=== PATIENT | male | born 1950 | race Caucasian/White ===

== ENCOUNTER → 2017-02-25 | Outpatient (CLI) | payer MEDICARE, MEDICAID ==
[~2017-02-25] MED LIST: /ASCO250TA PO; /FAMO2TA PO; /TAMS4CA PO; /WARF4TA PO; ALDA25TA2 PO; AMOXICILLIN PO; ASPI81TA85 PO; AUGM875T28 PO; BICA50TA2 PO; CIPR-249 PO; CIPR500T89 PO; COUM1TAB17 PO; COUM1TAB19 PO; COUM6TAB PO; COUM7.5T PO; DAILTAB51 PO; DIGO0.126 OR; DIGO0.25 PO; DIGO25TA PO; DILA100C PO; DOCQ100C PO; DOCU10CA PO; FAMO20TA PO; FLAG500T PO; FLON1SPR; FURO20TA2 PO; FURO40TA2 PO; K-TA10TA2 PO; LASI40TA PO; LUPR45IN IM; METO50TA2 PO; METO50TA7 PO; MULTCAP PO; MULTTAB4 PO; OXYB5TAB10 PO; PHEN100C PO; PHEN32.4 PO; PHEN32.44 PO; PHEN60TA9 PO; PHEN64.8 PO; POTA-77 PO; POTA20TA PO; TYLE325T5 PO; TYLE650T30 PD; VERA120T2 PO; VITA500T PO; VITMTA PO; WARF-23 PO; WARF-58 PO; WARF4TAB51 PO; [UNRECOGNIZED DRUG - OTHER] PO; clonidine OR; coumadin OR
--- NOTE | 2017-02-26 07:16 | RADONC ---
RADIATION ONCOLOGY FOLLOWUP NOTE: DATE: 02/25/2017 CHART NUMBER: [id number]. DIAGNOSIS: Prostate cancer. STAGE: IIB, L1CP0U5 ECOG PERFORMANCE STATUS: Zero. FOLLOWUP NOTE: Mr. Gonzalez is a very pleasant, 65-year-old white male with the diagnosis of a moderate to poorly differentiated [place] score 7 (3-4) adenocarcinoma of the prostate who is presenting to us today for routine followup visit 3 years post completion of external beam radiation therapy. The patient presents today reporting that he is doing quite well with no complaints at this time related to his radiation therapy or disease. He has no urinary or bowel difficulties and no bone pain. REVIEW OF SYSTEMS: The patient's review of systems is noncontributory. Denies nausea, vomiting, fevers, chills, night sweats, diplopia, headaches, anxiety or depression, anorexia, weight loss, visual disturbances, chest pain, urinary or bowel difficulties, bone pain, or neurological problems. PHYSICAL EXAMINATION: The patient is a well-developed, well-nourished male in no acute distress. HEENT exam is normocephalic, atraumatic. Extraocular movements are intact. There is no palpable cervical, supraclavicular, infraclavicular, axillary, or inguinal lymphadenopathy present. Lungs are clear to auscultation and percussion. Heart has a regular rate and rhythm. Abdomen is benign with no hepatosplenomegaly, masses, or tenderness. Rectal examination reveals a normal anal sphincter tone. His prostate is smooth with no evidence of nodularity. Skeletal examination reveals no tenderness to pressure or percussion of the bony skeleton. Extremities reveal no clubbing, cyanosis, or edema. Neurologic exam is grossly intact, as is the remainder of the physical examination. ASSESSMENT: The patient is clinically KIT at this time and will be seen by us again in 1 year for further followup. He will also continue to be followed by his other physicians as well. cc: MD Mario De León MD
== END ==
LOC: M ONCR 09:11
PROVIDERS: ATTEND Radiology Radiation Oncology
DX: C61 Malignant neoplasm of prostate (principal)

== ENCOUNTER 2017-04-16 15:01 | Inpatient (IN) | payer MEDICARE, MEDICAID ==
[~2017-04-16] VITALS: Ht 160 cm; Wt 90.5 kg
[~2017-04-16 15:01] MED LIST changes: -FLON1SPR; -K-TA10TA2 PO; -PHEN32.44 PO; -POTA20TA PO; -WARF-23 PO; -WARF-58 PO
[2017-04-16] MEDS ORDERED: K-TA10TA2 PO (15:11)
[2017-04-16] MEDS ORDERED: POTA20TA PO (15:11)
[2017-04-16] MEDS ORDERED: NS 500 ML IV ONE (15:15)
[2017-04-16 15:59] LABS: MEAN CORPUSCULAR HEMOGLOBIN 32.5 pg (27.0-33.0); MEAN CORPUSCULAR HGB CONC 34.5 g/dl (32.0-36.5); MEAN CORPUSCULAR VOLUME 94.1 fl (80.0-96.0); PLATELET COUNT, AUTOMATED 196 10^3/uL (150-450); RED CELL DISTRIBUTION WIDTH 13.3 % (11.5-14.5)
[2017-04-16 16:01] LABS: ADD MANUAL DIFFER YES; DIFF SLIDE NUMBER 260; POSITIVE DIFF POS FLAG; WHITE BLOOD COUNT 15.6 10^3/uL (4.0-10.0)
[2017-04-16 16:13] LABS: INR 2.64
[2017-04-16 17:02] LABS: ALBUMIN 3.5 GM/DL (3.2-5.2); ALBUMIN/GLOBULIN RATIO 1.03 (1.00-1.93); ALKALINE PHOSPHATASE 141 U/L (45-117); ALT/SGPT 34 U/L (12-78); ANION GAP 4 MEQ/L (8-16); AST/SGOT 30 U/L (15-37); BILIRUBIN,DIRECT < 0.1 MG/DL (0.0-0.2); BILIRUBIN,TOTAL 0.3 MG/DL (0.2-1.0); BLOOD UREA NITROGEN 12 MG/DL (7-18); CALCIUM LEVEL 8.3 MG/DL (8.8-10.2); CARBON DIOXIDE LEVEL 30 MEQ/L (21-32); CHLORIDE LEVEL 105 MEQ/L (98-107); CREATININE FOR GFR 0.84 MG/DL (0.70-1.30); GLOMERULAR FILTRATION RATE > 60.0 (>49); GLUCOSE, FASTING 97 MG/DL (80-110); POTASSIUM SERUM 4.4 MEQ/L (3.5-5.1); SODIUM LEVEL 139 MEQ/L (136-145); TOTAL PROTEIN 6.9 GM/DL (6.4-8.2)
[2017-04-16] MEDS: NS 1,000 ML IV SCH (17:48)
[2017-04-16] MEDS ORDERED: PERCOCET 5MG/325MG TAB PO PRN (18:00)
[2017-04-16] MEDS ORDERED: ACETAMINOPHEN TAB 650MG DOSE (2X325MG) PO PRN (18:00)
[2017-04-16] MEDS ORDERED: METOPROLOL TART 50 MG TAB PO ONE (18:00)
[2017-04-16] MEDS ORDERED: WARF-58 PO (18:14)
[2017-04-16] MEDS ORDERED: PHEN32.44 PO (18:14)
[2017-04-16] MEDS ORDERED: WARF-23 PO (18:14)
[2017-04-16] MEDS ORDERED: AUGM875T28 PO (18:16)
[2017-04-16] MEDS ORDERED: FLON1SPR (18:16)
[2017-04-16] MEDS: PANTOPRAZOLE SODIUM 40 MG in D5W 50 ML IV SCH ×3 (18:28→23:32)
--- NOTE | 2017-04-16 19:20 | HPE ---
DATE OF ADMISSION: 04/16/2017 ACCIDENT REPORT CLERK: Dr. 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 Patient stated this morning he went to the restroom and bright red blood just came out of his rectum and the whole toilet was bloody and he found a few blood clots without any stools. This morning had a total of 3-4 blood per rectum. This never happened before. Patient had colonoscopy. Patient did complain of shivering and chills approximately three days ago, but no fevers, no recurrence in the last few days. Denied any abdominal pain. Denied any chest pain or shortness of breath. Denied any dizziness. PAST MEDICAL HISTORY: Atrial fibrillation on Coumadin. Rheumatoid heart disease status post mitral valve replacement. Hypertension. Congestive heart failure. Seizure disorder. Elevated PSA and questionable history of prostate cancer. PAST SURGICAL HISTORY: Open heart surgery 1996. Cholecystectomy. Atrial thrombectomy. Porcine mitral valve replacement in 2016. SOCIAL HISTORY: Denied smoking. Denied alcohol use and recreational drug use. REVIEW OF SYSTEMS: GENERAL: Currently does not have any fever or chills. HEENT: No vision changes nor auditory changes. CARDIOVASCULAR: No chest pain. No palpitations. Patient does have a history of atrial fibrillation on Coumadin. Patient has rheumatoid heart disease status post mitral valve replacement. GI: Blood per rectum at 3-4 times in the morning, last episode 11 A.M. It never happened before. Denies any abdominal pain. No nausea. No vomiting. MUSCULOSKELETAL: Denies muscle pain or joint pain. NEURO: Denied any numbness or tingling. OBJECTIVE: Vital signs: Temperature 97.3, pulse 104, respiration1 6, Blood pressure is 158/93, pulse ox 96% on room air. GENERAL: No sign of acute distress. Awake, alert, and oriented times three. HEENT: Normocephalic, atraumatic. Extraocular motor grossly intact. CARDIOVASCULAR: Positive S1, S2, irregularly irregular. Heart range in satisfactory range. LUNGS: Decreased breath sounds no wheezes or rhonchi. ABDOMEN: Morbidly obese, soft, non-tender, non-distended. Bowel sounds present. EXTREMITIES: No edema, no cyanosis. NEURO: Sensation to fine tough grossly intact. Muscle strength 5/5. LABORATORY DATA: WBC 15.6, hemoglobin 14.4, hematocrit 41.7, platelet count 196. Sodium 139, potassium 4.4, chloride 105, carbon dioxide 30, BUN 12, creatinine 0.84, glomerular filtration rate (GFR) greater than 60, fasting glucose 97, calcium 8.3. Total bilirubin is 0.3, direct bilirubin less than 0.1. AST 30, ALT 34, alkaline phosphatase 141, total protein 6.9, albumin 3.5, lipase 165. PT 29.2, INR is 2.64. ASSESSMENT AND PLAN: 1. Acute GI bleed. Patient admitted to progressive care unit (PCU) under inpatient status. Patient will be placed on nothing by mouth. Supplement with gentle fluid hydration followed by hemoglobin and hematocrit. Patient never had colonoscopy in the patient and will try to stabilize patient. Patient may benefit from colonoscopy. Consider consult gastroenterology. 2. Atrial fibrillation on Coumadin. Continue with Digoxin for rate control. Also continue with metoprolol. Due to GI bleed patient's warfarin will be on hold at this moment. 3. Congestive heart failure. Patient has been taking Lasix at home. Due to GI bleed and patient on nothing by mouth, will hold Lasix and spironolactone. 4. Hypertension. Continue metoprolol. 5. 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 6. History of seizure disorders. Continue Dilantin and also phenobarbital, which are patients home medications. 7. Deep vein thrombosis prophylaxis. On thromboembolic deterrent stockings (TEDS), sequentials and compression devices. Patient has acute GI bleed. [facility]
[2017-04-16] MEDS ORDERED: FLUTICASONE PROP 0.05% NASAL SPRAY 16 GM (FLONASE) PRN (20:45)
[2017-04-16] MEDS ORDERED: PHENobarbital 30 MG TAB PO SCH (21:00)
[2017-04-16] MEDS ORDERED: PHYTONADIONE 2.5 MG **1/2 TAB PO ONE (21:15)
[2017-04-16] MEDS: PHENYTOIN ER 100 MG CAP PO SCH (21:22)
[2017-04-16] MEDS: METOPROLOL TART 50 MG TAB PO SCH (21:23)
[2017-04-16 21:39] LABS: MEAN CORPUSCULAR HGB CONC 34.7 g/dl (32.0-36.5); MEAN CORPUSCULAR VOLUME 95.2 fl (80.0-96.0); PLATELET COUNT, AUTOMATED 179 10^3/uL (150-450); RED CELL DISTRIBUTION WIDTH 13.5 % (11.5-14.5); WHITE BLOOD COUNT 17.3 10^3/uL (4.0-10.0)
--- NOTE | 2017-04-16 22:25 | CR ---
DATE OF CONSULTATION: 04/16/2017 I saw this inpatient. REQUESTING PHYSICIAN: Hospitalist service REASON FOR CONSULTATION: Rectal bleeding. HISTORY OF PRESENT ILLNESS: Mr. Gonzalez is a 66-year-old gentleman with a past medical history significant for prostate cancer, status post radiation therapy approximately 4 years ago, which was quite uneventful. He has rheumatic heart disease with a mitral valve replacement (bioprosthetic). He is on anticoagulation therapy for atrial fibrillation. The patient was in his usual state of health until yesterday when he had a total of four bright red bloody bowel movements. He denies any diarrhea, abdominal pain, constipation, or previous episodes of rectal bleeding. He was admitted for further evaluation. PAST MEDICAL HISTORY: Positive for: 1. Prostate cancer status post radiation therapy 4 years ago. 2. Rheumatic heart disease, status post mitral valve replacement, bioprosthetic. 3. Seizure disorder. 4. Indigestion. 5. Deep vein thrombosis (DVT). 6. Congestive heart failure (CHF). FAMILY HISTORY: Negative for colorectal carcinoma, inflammatory bowel disease. SOCIAL HISTORY: Negative for tobacco. Negative for alcohol. PAST SURGICAL HISTORY: 1. Cholecystectomy in 2005. 2. Appendectomy in 2014. 3. A bioprosthetic mitral valve replacement in 2012. ALLERGIES TO MEDICATIONS: No known drug allergies. REVIEW OF SYSTEMS: GENERAL: Negative for weight loss, night sweats, fevers, or chills. PULMONARY: Negative for pleuritic-type chest pain, hemoptysis. CARDIAC: Negative for orthopnea, paroxysmal nocturnal dyspnea (PND). GASTROINTESTINAL: As per history of present illness (HPI). GENITOURINARY: Negative for hematuria, dysuria. MUSCULOSKELETAL: Negative for myalgias, arthralgias. PHYSICAL EXAMINATION: Heart rate is 104, blood pressure 200/98, respirations 18, pulse oximetry 93% on room air. GENERAL: He is awake, alert and oriented times three in no acute distress. Nontoxic in appearance. He is quite comfortably in bed. HEAD, EYES, EARS, NOSE AND THROAT: Without abnormality. There is no mucosal pallor. No oral thrush. NECK: Supple. No lymphadenopathy or thyromegaly. CHEST: Clear bilaterally. HEART: Regular rate and rhythm, S1, S2. No gallops. ABDOMEN: Soft, nontender. Good bowel sounds. No masses felt. EXTREMITIES: Negative for edema. LABORATORY FINDINGS: Hemoglobin is 14.4, WBC 15.6, platelet count is 196. PT/INR is 2.64. BUN is 12, creatinine is 0.84. IMPRESSION: Rectal bleeding. RECOMMENDATIONS: 1. Colonoscopy is recommended, and we will tentatively plan on proceeding with this on ThursdayApril 18. In the meantime we will proceed with a colon prep, which will happen tomorrow. 2. Correct INR either by simply waiting waiting or add vitamin K if necessary before procedure. He has a bioprosthetic valve in place. Has had previous manipulation and a history of rheumatic heart disease. I will go ahead and prophylax him with ampicillin and gentamicin before procedures.
[2017-04-17] VITALS (8 sets, daily range): BP systolic 118–180; BP diastolic 67–91
[2017-04-17] MEDS: PANTOPRAZOLE SODIUM 40 MG in D5W 50 ML IV SCH ×3 (04:53→15:53)
[2017-04-17 05:33] LABS: MEAN CORPUSCULAR HEMOGLOBIN 32.8 pg (27.0-33.0); MEAN CORPUSCULAR HGB CONC 34.1 g/dl (32.0-36.5); MEAN CORPUSCULAR VOLUME 96.3 fl (80.0-96.0); PLATELET COUNT, AUTOMATED 172 10^3/uL (150-450); RED CELL DISTRIBUTION WIDTH 13.4 % (11.5-14.5); WHITE BLOOD COUNT 14.2 10^3/uL (4.0-10.0)
[2017-04-17 05:57] LABS: ANION GAP 7 MEQ/L (8-16); BLOOD UREA NITROGEN 11 MG/DL (7-18); CARBON DIOXIDE LEVEL 27 MEQ/L (21-32); CHLORIDE LEVEL 108 MEQ/L (98-107); CREATININE FOR GFR 0.78 MG/DL (0.70-1.30); GLOMERULAR FILTRATION RATE > 60.0 (>49); GLUCOSE, FASTING 81 MG/DL (80-110); MAGNESIUM LEVEL 2.1 MG/DL (1.8-2.4); POTASSIUM SERUM 3.8 MEQ/L (3.5-5.1); SODIUM LEVEL 142 MEQ/L (136-145)
[2017-04-17] MEDS ORDERED: MAGNESIUM CITRATE 300 ML BTL PO ONE (07:00)
[2017-04-17] MEDS: PHENobarbital 30 MG TAB PO SCH ×2 (09:30→20:41)
[2017-04-17] MEDS: PHENYTOIN ER 100 MG CAP PO SCH ×3 (10:30→20:40)
[2017-04-17] MEDS: DIGOXIN 0.25 MG TAB PO SCH (10:31)
[2017-04-17] MEDS: MULTIVITAMINS/MINERALS THERAP 1 TAB PO SCH (10:31)
[2017-04-17] MEDS: ASCORBIC ACID 500 MG TAB PO SCH (10:31)
[2017-04-17] MEDS: METOPROLOL TART 50 MG TAB PO SCH ×2 (10:31→20:40)
[2017-04-17] MEDS: NS 1,000 ML IV SCH ×2 (10:32→19:35)
[2017-04-17 13:47] LABS: INR 1.7
[2017-04-17 15:43] LABS: MEAN CORPUSCULAR HEMOGLOBIN 32.6 pg (27.0-33.0); MEAN CORPUSCULAR HGB CONC 34.1 g/dl (32.0-36.5); MEAN CORPUSCULAR VOLUME 95.4 fl (80.0-96.0); PLATELET COUNT, AUTOMATED 178 10^3/uL (150-450); RED CELL DISTRIBUTION WIDTH 13.5 % (11.5-14.5); WHITE BLOOD COUNT 14.7 10^3/uL (4.0-10.0)
[2017-04-17] MEDS ORDERED: GOLYTELY SOLN 4000 ML BTL PO ONE ×2 (17:00→22:45)
[2017-04-17 23:13] LABS: MEAN CORPUSCULAR HEMOGLOBIN 32.4 pg (27.0-33.0); MEAN CORPUSCULAR HGB CONC 33.8 g/dl (32.0-36.5); PLATELET COUNT, AUTOMATED 158 10^3/uL (150-450); RED CELL DISTRIBUTION WIDTH 13.4 % (11.5-14.5)
[2017-04-17 23:18] LABS: ADD MANUAL DIFFER YES; DIFF SLIDE NUMBER 242; POSITIVE DIFF POS FLAG; POSITIVE MORPH POS FLAG; WHITE BLOOD COUNT 15.6 10^3/uL (4.0-10.0)
[2017-04-18] MEDS: PANTOPRAZOLE SODIUM 40 MG in D5W 50 ML IV SCH ×3 (00:08→11:47)
[2017-04-18 00:28] LABS: ANISOCYTOSIS 1+; BASOPHILS 1 % (0-4); EOSINOPHILS 2 % (0-5)
[2017-04-18 05:43] LABS: MEAN CORPUSCULAR HEMOGLOBIN 32.3 pg (27.0-33.0); MEAN CORPUSCULAR HGB CONC 33.5 g/dl (32.0-36.5); MEAN CORPUSCULAR VOLUME 96.5 fl (80.0-96.0); PLATELET COUNT, AUTOMATED 172 10^3/uL (150-450); RED CELL DISTRIBUTION WIDTH 13.5 % (11.5-14.5); WHITE BLOOD COUNT 15.4 10^3/uL (4.0-10.0)
[2017-04-18 05:57] LABS: ANION GAP 5 MEQ/L (8-16); BLOOD UREA NITROGEN 7 MG/DL (7-18); CALCIUM LEVEL 8.5 MG/DL (8.8-10.2); CARBON DIOXIDE LEVEL 30 MEQ/L (21-32); CHLORIDE LEVEL 108 MEQ/L (98-107); CREATININE FOR GFR 0.87 MG/DL (0.70-1.30); GLOMERULAR FILTRATION RATE > 60.0 (>49); GLUCOSE, FASTING 89 MG/DL (80-110); MAGNESIUM LEVEL 2.3 MG/DL (1.8-2.4); POTASSIUM SERUM 3.9 MEQ/L (3.5-5.1); SODIUM LEVEL 143 MEQ/L (136-145)
[2017-04-18 06:00] VITALS: BP 150/78
[2017-04-18] MEDS ORDERED: GENTAMICIN 100 MG in APPROPRIATE DILUENT 1 EA IV SCH (06:00)
[2017-04-18] MEDS ORDERED: AMPICILLIN SOD/SULBACTAM SOD 3 GM in D5W MINI-BAG PLUS 100 ML IV SCH (06:00)
[2017-04-18] MEDS: NS 1,000 ML IV SCH (08:24)
[2017-04-18 09:00] VITALS: BP 150/78
[2017-04-18] MEDS ORDERED: PREVNAR 13 VACCINE SYRINGE (CPT CODE:90670) IM ONE (09:00)
[2017-04-18] MEDS: METOPROLOL TART 50 MG TAB PO SCH (09:00)
[2017-04-18] MEDS ORDERED: INFLUENZA VIRUS VACCINE HIGH DOSE 0.5 ML SYRINGE (90662) IM ONE (09:00)
[2017-04-18] MEDS ORDERED: PROPOFOL 200 MG/20 ML VIAL As Ordered ONE (09:52)
--- NOTE | 2017-04-18 10:31 | ROOR ---
Patient Name: Edson Gonzalez Procedure Date: 04/18/2017 9:37 AM Date of : 1950 Age: 66 Gender: Male Note Status: Finalized Procedure: Colonoscopy Indications: Hematochezia Providers: Marcus FLOREZ MD Referring MD: 2. Inpatient 2. Inpatient Requesting Provider: Medicines: Monitored Anesthesia Care Complications: No immediate complications. Procedure: Pre-Anesthesia Assessment: - The heart rate, respiratory rate, oxygen saturations, blood pressure, adequacy of pulmonary ventilation, and response to care were monitored throughout the procedure. The Colonoscope was introduced through the anus and advanced to the cecum, identified by appendiceal orifice and ileocecal valve. The colonoscopy was performed without difficulty. The patient tolerated the procedure well. The quality of the bowel preparation was fair. Findings: The perianal and digital rectal examinations were normal. (EXAM: Complete, PREP: Fair/Adequate) A 18 mm hemorrhagic polyp was found in the recto-sigmoid colon. The polyp was pedunculated. An endoloop was maneuvered over the polyp stalk and closed at the mucosal attachment prior to removal in order to prevent bleeding. The polyp was removed with a hot snare. Resection and retrieval were complete. Multiple medium-mouthed diverticula were found in the sigmoid colon. The exam was otherwise without abnormality on direct and retroflexion views. Impression: - (EXAM: Complete, PREP: Fair/Adequate) - One 18 mm hemorrhagic appearing polyp at the recto-sigmoid colon, removed with a hot snare. Resected and retrieved. - Mild diverticulosis in the sigmoid colon. - The examination was otherwise normal on direct and retroflexion views. Recommendation: - Continue present medications. - Resume anticoagulant medication at prior dose today. Refer to managing physician for further adjustment of therapy. - Await pathology results. - Telephone endoscopist for pathology results in 2 weeks. - The patient will be observed post-procedure, until all discharge criteria are met. - Repeat colonoscopy in 1 year because the bowel preparation was suboptimal. Marcus Florez MD Marcus FLOREZ MD 04/18/2017 10:31:03 AM This report has been signed electronically. Number of Addenda: 0 Note Initiated On: 04/18/2017 9:37 AM Estimated Blood Loss: Estimated blood loss: none.
[2017-04-18 10:35] VITALS: BP 157/86
[2017-04-18 11:00] VITALS: BP 164/86
[2017-04-18] MEDS: PHENYTOIN ER 100 MG CAP PO SCH (11:46)
[2017-04-18] MEDS: DIGOXIN 0.25 MG TAB PO SCH (11:47)
[2017-04-18] MEDS: MULTIVITAMINS/MINERALS THERAP 1 TAB PO SCH (11:47)
[2017-04-18] MEDS: PHENobarbital 30 MG TAB PO SCH (11:47)
[2017-04-18] MEDS: ASCORBIC ACID 500 MG TAB PO SCH (11:47)
[2017-04-18 12:00] VITALS: BP 163/84
--- NOTE | 2017-04-18 13:07 | IPN ---
DATE OF SERVICE: 04/17/2017 Mr. Gonzalez is feeling okay this morning. He has no complaints of abdominal pain. He has passed some more bloody stools. No chest pain. Not short of breath. Temperature is 98.2, pulse 81, respiratory rate 18, blood pressure 118/69, 92% on room air. Intake and output (I and O) notable for a positive fluid balance of 1000 at this point. He is awake, appropriately interactive, pleasantly conversant. Mucous membranes moist. Neck is supple. Heart is distant sounding. Regular rate and rhythm. Abdomen soft, doughy, nontender. No significant lower extremity edema. White cell count 14.2, hemoglobin 12.3, and platelets of 172. BUN 11, creatinine 0.7. INR is 1.7 today. My assessment is as follows: This is a 66-year-old with lower gastrointestinal (GI) bleed. The plan is as follows: 1. Gastrointestinal. The patient appears to have a lower GI bleed. Hemoglobin and hematocrit is trending downward slowly. He is not hypotensive. No significant arrhythmia on monitor. GI has been consulted and plans for colonoscopy likely over the weekend. 2. The patient has atrial fibrillation. On Coumadin. Coumadin is held. Rate is currently controlled. Will continue on telemetry but may switch to the medical floor. 3. The patient has a history of congestive heart failure. He is usually on a diuretic. This is currently held, and he has received intravenous (IV) fluid currently, receiving normal saline at 80 mL per hour. 4. He has hypertension. Blood pressure is controlled. 5. The patient has rheumatoid heart disease with a porcine mitral valve. 6. The patient has a history of seizure disorder. Continuing his home medications. 7. The patient has mechanical deep venous thrombosis (DVT) prophylaxis.
--- NOTE | 2017-04-18 13:22 | ECGEPIP ---
Stationary ECG Study [facility] Test Date: 2017-04-18 Pat Name: SHAHEEN DAY Department: Room: [place] [address] Gender: M Overhead Foreman: HELGA BREEN : 1950 Requested By: GLORIA URBAN Order Number: [id number] Reading MD: Marcus James Measurements Intervals [place] Rate: 76 P: WA: 0 QRS: 21 QRSD: 79 T: -10 QT: 367 QTc: 413 Interpretive Statements ATRIAL FIBRILLATION Non specific ST T wave changes similar to tracing done 03-06-15 motion artifact Electronically Signed On 04-18-2017 13:22:19 EDT by Marcus James
[2017-04-18 14:00] VITALS: BP 154/75
--- NOTE | 2017-04-20 19:18 | DSES ---
DATE OF ADMISSION: 04/16/2017 DATE OF DISCHARGE: 04/18/2017 SPECIALISTS INVOLVED IN HIS CARE: Include: Dr. Florez. PROCEDURES PERFORMED DURING HIS STAY: Included: Colonoscopy. No complications during his stay. DISCHARGE DIAGNOSES: 1. Lower gastrointestinal (GI) bleed. 2. Hemorrhagic rectosigmoid polyp. 3. Atrial fibrillation on Coumadin. 4. Rheumatic heart disease status post mitral valve replacement. 5. Hypertension. 6. History of congestive heart failure. 7. Seizure disorder. 8. Elevated prostate specific antigen (PSA). SUMMARY OF HIS PRESENTATION: This is a 66-year-old with history of atrial fibrillation, rheumatic heart disease status post porcine mitral valve replacement who presented with bright red blood per rectum. He was admitted to the hospitalist service and was monitored clinically. He had serial hemoglobins and hematocrits. He was seen in consultation by Dr. Florez. He had a colonoscopy and had a hemorrhagic polyp removed. Postprocedurally, the patient was feeling well. He did have short runs of ventricular tachycardia which were asymptomatic during his stay. He did have a suboptimal colonic preparation and will require a colonoscopy within one year. At the time of discharge, he is feeling well. He has no complaints of pain, chest pain, or shortness of breath. He is tolerating a diet. Temperature is 97.1, pulse 91, respiratory rate 16, blood pressure 163/83, 93% on room air. He is awake, appropriately interactive, pleasantly conversant, looking forward to going home. Mucous membranes are moist. Neck is supple. Breathing is symmetrical, rested. Heart is distant sounding, normal S1, S2. LABORATORY DATA: White cell count 15.4, hemoglobin 13.1, and platelets 172. BUN 7, creatinine 0.87. DISCHARGE INSTRUCTIONS: Include the following: Followup with Dr. Florez and call as directed. Followup with Dr. Estevez within one week. Activity as tolerated. Diet as tolerated. Continue: - Tylenol every four hours as needed for pain - Augmentin 875 mg by mouth twice a day, complete the course that he started as an outpatient - vitamin C 500 mg by mouth daily - aspirin 81 mg by mouth daily - digoxin 0.25 mg by mouth daily - Colace 100 mg by mouth twice a day - Flonase as needed for nasal congestion - Lasix 40 mg every morning daily and 20 mg every evening - metoprolol tartrate 50 mg by mouth twice a day - multivitamin tablet daily - phenobarbital 64.8 mg by mouth twice a day - dilantin 100 mg by mouth three times a day - potassium chloride 20 mEq by mouth daily - spironolactone 12.5 mg by mouth daily at bedtime - continue with home dosing of Coumadin Please note that the patient did have short runs of ventricular tachycardia during this stay which may or may not require further outpatient workup depending on clinical relevance. Also, please note that the patient has an insufficient colonic preparation and will require a colonoscopy within one year. Pathology of the polyp needs to be followed as an outpatient.
== END 2017-04-18 14:40 | disposition home or self-care (01) | DRG 379 ==
LOC: M ED 15:01 → M ED INP 17:48 → M PCU 04-17 02:00 → M MSPAV 04-17 19:59
PROVIDERS: ADMIT Internal Medicine; ATTEND Internal Medicine
PROC: 0DBN8ZX Excision of Sigmoid Colon, Via Natural or Artificial Opening Endoscopic, Diagnostic (ICD-10-PCS; principal; 2017-04-18 09:00)
DX: K62.5 Hemorrhage of anus and rectum (principal); D12.5 Benign neoplasm of sigmoid colon; I48.91 Unspecified atrial fibrillation; K57.30 Diverticulosis of large intestine without perforation or abscess without bleeding; I11.0 Hypertensive heart disease with heart failure; I50.9 Heart failure, unspecified; G40.909 Epilepsy, unspecified, not intractable, without status epilepticus; R97.20 Elevated prostate specific antigen [PSA]; Z90.49 Acquired absence of other specified parts of digestive tract; Z92.3 Personal history of irradiation; Z85.46 Personal history of malignant neoplasm of prostate; Z95.3 Presence of xenogenic heart valve; Z79.82 Long term (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 of aspirin; Z79.52 Long term (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 of systemic steroids; Z79.899 Other long term (current) drug therapy

== ENCOUNTER → 2017-08-26 | Outpatient (CLI) | payer MEDICARE, MEDICAID | LOC: M ONCR 09:06 | DX: C61 Malignant neoplasm of prostate (principal) | CPT/HCPCS: G0463 ==

== ENCOUNTER → 2018-03-03 | Outpatient (CLI) | payer MEDICARE, MEDICAID | LOC: M ONCR 14:54 | DX: C61 Malignant neoplasm of prostate (principal) | CPT/HCPCS: G0463 ==

== ENCOUNTER 2018-06-23 11:10 | Emergency (ER) | payer MEDICARE, MEDICAID ==
[~2018-06-23] VITALS: Ht 157.5 cm; Wt 92.0 kg
[~2018-06-23 11:10] MED LIST changes: -BICA50TA2 PO; +BICA50TA9 PO; +FLON1SPR; +K-TA10TA2 PO; +KLOR20TA42 PO; -LASI40TA PO; +LASI40TA9 PO; +PHEN32.44 PO; +WARF-23 PO; +WARF-58 PO
[2018-06-23 11:11] VITALS: BP 177/80
[2018-06-23] MEDS ORDERED: MEDR4PAK PO (11:39)
== END 2018-06-23 11:48 | disposition home or self-care (01) ==
LOC: M ED 11:10
DX: M54.17 Radiculopathy, lumbosacral region (principal); I10 Essential (primary) hypertension; E78.5 Hyperlipidemia, unspecified; R56.9 Unspecified convulsions; Z85.46 Personal history of malignant neoplasm of prostate; F41.9 Anxiety disorder, unspecified; F32.9 Major depressive disorder, single episode, unspecified; Z95.1 Presence of aortocoronary bypass graft; Z79.899 Other long term (current) drug therapy; Z79.01 Long term (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 of a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; Z79.82 Long term (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 of aspirin

== ENCOUNTER 2018-08-31 07:50 | Day surgery (SDC) | payer MEDICARE, MEDICAID ==
[~2018-08-31] VITALS: Ht 157.5 cm; Wt 92.1 kg
[~2018-08-31 07:50] MED LIST changes: +DIGO0.12 PO; +GABA-1171 PO; +LIDOCAINE 2% INJ 100 MG/5 ML SDV (FOR ANES.) As Ordered ONE; +MEDR4PAK PO; +PROPOFOL 200 MG/20 ML VIAL As Ordered ONE; +[UNRECOGNIZED DRUG - OTHER] PO
[2018-08-31] MEDS ORDERED: NS 1,000 ML IV ONE (09:00)
[2018-08-31] MEDS ORDERED: LIDOCAINE 2% INJ 100 MG/5 ML SDV (FOR ANES.) As Ordered ONE (10:00)
[2018-08-31] MEDS ORDERED: PROPOFOL 500 MG/50 ML VIAL As Ordered ONE (10:00)
--- NOTE | 2018-08-31 10:06 | ROOR ---
Patient Name: Edson Gonzalez Procedure Date: 08/31/2018 9:31 AM Date of : 1950 Age: 67 [facility] Note Status: Finalized Procedure: Colonoscopy Indications: High risk colon cancer surveillance: Personal history of rectosigmoid cancer (malignant polyp (adenoCA) rectosigmoid. stalk free of adenoma-2016) Providers: Marcus FLOREZ MD Referring MD: Marcus TRONCOSO MD Requesting Provider: Medicines: Monitored Anesthesia Care Complications: No immediate complications. Procedure: Pre-Anesthesia Assessment: - The heart rate, respiratory rate, oxygen saturations, blood pressure, adequacy of pulmonary ventilation, and response to care were monitored throughout the procedure. The Colonoscope was introduced through the anus and advanced to the cecum, identified by appendiceal orifice and ileocecal valve. The colonoscopy was somewhat difficult due to a redundant colon. The patient tolerated the procedure well. The quality of the bowel preparation was good. Findings: The perianal and digital rectal examinations were normal. Two sessile polyps were found in the sigmoid colon and splenic flexure. The polyps were diminutive in size. These polyps were removed with a cold snare. Resection and retrieval were complete. Internal hemorrhoids were found during retroflexion. The hemorrhoids were moderate. Localized mild inflammation was found in the distal rectum. The exam was otherwise without abnormality on direct and retroflexion views. Impression: - Two diminutive polyps in the sigmoid colon and at the splenic flexure, removed with a cold snare. Resected and retrieved. - Internal hemorrhoids. - Localized very mild radiation proctitis. - The examination was otherwise normal on direct and retroflexion views. Recommendation: - Repeat colonoscopy in 3 years for surveillance based on personal history of colon cancer. - Resume Coumadin (warfarin) at prior dose today. Refer to managing physician for further adjustment of therapy. Marcus Florez MD Marcus FLOREZ MD 08/31/2018 10:05:51 AM This report has been signed electronically. Number of Addenda: 0 Note Initiated On: 08/31/2018 9:31 AM Estimated Blood Loss: Estimated blood loss: none.
[2018-08-31 10:20] VITALS: BP 169/81
== END 2018-08-31 10:45 | disposition home or self-care (01) ==
LOC: M OPP 07:50
PROVIDERS: ATTEND Internal Medicine Gastroenterology
DX: D12.5 Benign neoplasm of sigmoid colon (principal); D12.3 Benign neoplasm of transverse colon; K64.8 Other hemorrhoids; K62.7 Radiation proctitis; Z85.048 Personal history of other malignant neoplasm of rectum, rectosigmoid junction, and anus

== ENCOUNTER → 2019-03-02 | Outpatient (CLI) | payer MEDICARE, MEDICAID ==
[~2019-03-02] MED LIST changes: -/FAMO2TA PO; -/TAMS4CA PO; -/WARF4TA PO; +COUM1TAB14 PO; +FAMO1TAB11 PO; +FLOM0.4C39 PO; -LIDOCAINE 2% INJ 100 MG/5 ML SDV (FOR ANES.) As Ordered ONE; -PROPOFOL 200 MG/20 ML VIAL As Ordered ONE
--- NOTE | 2019-03-04 07:15 | RADONC ---
RADIATION ONCOLOGY FOLLOWUP NOTE: DATE: 03/02/2019 CHART NUMBER: [id number] DIAGNOSIS: Prostate cancer. STAGE II B, T2c N0 M0. ECOG PERFORMANCE STATUS: 0 Mr. Gonzalez is a very pleasant 68-year-old man with a diagnosis of adenocarcinoma of the prostate, moderately to poorly differentiated with a [place] score of 7 (3+ 4). He completed his radiotherapy approximately 5 years ago. He presents today claiming that he is doing quite well with no specific complaints related to his disease or to his treatments. REVIEW OF SYSTEMS: He denies nausea, vomiting, diarrhea, dysuria, hematuria or blood per rectum. He also denies anxiety, depression, anorexia, weight loss, visual disturbances, chest pain, urinary or bowel difficulties bone pain or neurologic issues. EXAMINATION FINDINGS: He is well-developed, well-nourished male in no acute distress. HEENT: Normocephalic. EOMs intact. NACHO. Fundi benign. LYMPHATICS: No palpable peripheral lymphadenopathy is appreciated. Lungs are clear. Heart: Regular. Abdomen: Without evidence of hepatomegaly, masses, deep abdominal tenderness. Extremities: Without cyanosis, clubbing or edema. Neurologic: Examination grossly physiologic and nonfocal. IMPRESSION: Clinically NAD at this time. His most recent PSA 03/01/2019 was 0.22. His PSA prior was 0.18 and prior PSA 0.13. PSA on 08/25/2017 was 0.14. This represents only a minor increased and this was his second increase in his PSA level. Would like to have him return and a repeat his PSA in approximately 6 months. If it should continue to rise significantly then he may require hormonal therapy. It turns out that the patient was on hormonal therapy and this was discontinued according to the patient approximately 1 year ago. This may explain his most recent mild elevations in his the laboratory values. Nonetheless, we will obtain a repeat PSA in approximately 6 months and if necessary he may need to go back on hormonal therapy depending upon the laboratory value with the time. cc: MD Marcus Singh MD
== END ==
LOC: M ONCR 15:03
PROVIDERS: ATTEND Radiology Radiation Oncology
DX: C61 Malignant neoplasm of prostate (principal)

== ENCOUNTER → 2019-09-14 | Outpatient (CLI) | payer MEDICARE, MEDICAID ==
[~2019-09-14] MED LIST changes: -DIGO0.12 PO; +DIGO0.123 PO
--- NOTE | 2019-09-19 13:28 | RADONC ---
RADIATION ONCOLOGY FOLLOWUP NOTE: DATE: 09/14/2019 CHART NUMBER: [id number] DIAGNOSIS: Prostate cancer. STAGE: II B, T2c N0 M0 ECOG PERFORMANCE STATUS: 0 This is a Telehealth visit of established office patient. Telephone followup due to COVID-19 crisis. Mr. Gonzalez is presently almost 6 years post completion of external beam radiation therapy for his prostatic adenocarcinoma. The patient reports that he is doing quite well with no complaints at this time related to his radiation therapy or disease. He is having no urinary or bowel difficulties. No bone pain. REVIEW OF SYSTEMS: The patient's review of systems is noncontributory. He denies nausea, vomiting, fevers, chills, night sweats, diplopia, headaches, anxiety or depression, anorexia, weight loss, visual disturbances, chest pain, urinary or bowel difficulties, bone pain, or neurological problems. PHYSICAL EXAMINATION: Physical examination was deferred at this time secondary to COVID-19. ASSESSMENT: The patient is clinically doing well. His PSA done on 08/31/2019 was 0.25. The patient will be seen in followup in one year's time. cc: MD Marcus Singh MD
== END ==
LOC: M ONCR 11:55
PROVIDERS: ATTEND Radiology Radiation Oncology
DX: Z08 Encounter for follow-up examination after completed treatment for malignant neoplasm (principal); C61 Malignant neoplasm of prostate

== ENCOUNTER → 2020-09-12 | Outpatient (CLI) | payer MEDICARE, MEDICAID ==
[~2020-09-12] MED LIST changes: +ASPI81TA86 PO; -COUM6TAB PO; +COUM6TAB10 PO; -COUM7.5T PO; +COUM7.5T6 PO; +VITA-243 PO; -VITA500T PO
--- NOTE | 2020-09-12 11:18 | RADONC ---
Radiation Oncology Hx/FUP Radiation Oncology Hx/FUP Date of Service: Sep 12, 2020 Pt Identifier Edson Gonzalez is a 69 year old male seen for a followup visit today at the department of radiation oncology for a history of intermediate risk prostate cancer cT2a [place] 3+4=7 (6/12 cores+) PSA 5.8. He completed EBRT 79.2 Gy in 44 fractions on 01/23/14. He had 3 years of concurrent ADT per Dr. Cantu. Diagnosis/Treatment History Oncologic History 08/24/13 TRUS biopsy [place] 3+4= in 1/12 cores [place] 3+3=6 in 5/12 cores 6/12 cores+ overall PSA trend: 09/07/20 0.40 08/31/19 0.25 03/01/19 0.22 12/27/18 0.13 10/30/15 0.80 02/21/14 <0.02 Interval History Feels well, 2x nocturia is his only urinary symptom. He does not desire medication for this. He has no pain to speak of. Having regular BMs daily without bleeding. Appetite good and weight stable. Current Therapy Surveillance Stage Intermediate risk prostate cancer cT2a [place] 3+4=7 (6/12 cores+) PSA 5.8 Social History: Non-smoker Does not drink Allergies / Meds Allergies: Coded Allergies: No Known Allergies (Verified , 07/14/18) Home Meds Reported Medications Gabapentin (Gabapentin) 100 Mg Cap, 100 MG PO DAILY, CAP 07/14/18 [doculace] No Conflict Check, 1 CAP PO BID 07/14/18 Digoxin (Digoxin) 125 Mcg Tab, 250 MCG PO DAILY, TAB 07/14/18 Warfarin Sodium (Warfarin Sodium) 5 Mg Tab, 5 MG PO DAILY, TAB 04/16/17 Phenobarbital (Phenobarbital) 32.4 Mg Tab, 64.8 MG PO BID, TAB 04/16/17 Potassium Chloride (Klor-Con M20) 20 Meq Tabcr, 20 MEQ PO DAILY, TABCR 04/16/17 Furosemide (Furosemide) 20 Mg Tab, 20 MG PO QPM, TAB 03/05/15 Multivitamins (Thera M Plus Tablet) 1 Tab Tab, 1 TAB PO DAILY, TAB 03/05/15 Spironolactone (Aldactone) 25 Mg Tab, 12.5 MG PO QHS, TAB 01/26/15 Phenytoin Sodium Extended (Dilantin) 100 Mg Cap, 100 MG PO TID, CAP 07/23/14 Metoprolol Tartrate (Metoprolol Tartrate) 50 Mg Tab, 50 MG PO BID, TAB 07/23/14 Ascorbic Acid (Vitamin C) 500 Mg Tab, 1000 MG PO DAILY, TAB 07/23/14 Furosemide (Lasix) 40 Mg Tab, 40 MG PO QAM, TAB 07/23/14 Aspirin (Aspir 81) 81 Mg Tab, 81 MG PO DAILY, TAB 07/23/14 Review of Systems Review of Systems Constitutional: Denies: Fever, Malaise, Weight Loss Eyes: Denies: Pain HEENT: Denies: Head Aches Skin: Denies: Rash Pulmonary: Denies: Dyspnea, Cough Cardiovascular: Denies: Chest Pain, Palpitations Gastrointestinal: Denies: Nausea, Abdominal Pain, Hematochezia Genitourinary: Reports: Frequency; Denies: Dysuria, Incontinence Hematologic: Denies: Bruising Musculoskeletal: Denies: Neck pain, Back pain Neurological: Denies: Weakness, Numbness Psych: Reports: Mood Normal Physical Examination Vital Signs Wt 185 lbs T 98 P 72 RR 16 BP 151/84 Pain 0 Fatigue 1 General Exam: Positive: Alert, Cooperative; Negative: No Acute Distress Eye Exam: Positive: PERRLA, EOMI ENT EXAM: Positive: Atraumatic, Mucous membr. moist/pink Neck Exam: Positive: Supple Chest Exam: Positive: Clear to auscultation, Normal air movement Heart Exam: Positive: Rate Normal Abdomen Exam: Positive: Soft; Negative: Tenderness Extremity Exam: Negative: Edema Skin Exam: Positive: Nl turgor and temperature Neuro Exam: Positive: Normal Gait, Normal Speech, Cranial Nerves 3-12 NL Psych Exam: Positive: Mental status NL Diagnostic and Laboratory Diagnostic Review Radiologic images, relevant labs and pathology reports were personally reviewed and discussed with Mr. Gonzalez. Assessment and Plan Impression Assessment Mr. Gonzalez is a 69 year old male with a history of intermediate risk prostate cancer cT2a [place] 3+4=7 (6 cores+) PSA 5.8. He completed EBRT 79.2 Gy in 44 fractions on 01/23/14. He had 3 years of concurrent ADT per Dr. Cantu. Doing well overall. Mild nocturia most likely lasix related. He does not want to add flomax for this, which is reasonable given his polypharmacy pre-existing. His most recent PSA remains low now >6 years removed from primary treatment. He can follow up again in 1 year with a PSA check as he wishes to continue to fo llow up with us periodically. Performance Status ECOG 1 Plan 12 months with PSA Mr. Gonzalez was encouraged to call with questions or concerns in the interim period. Billing Statement Total time of [20] minutes was spent preparing for the visit [2], obtaining HPI [3], examining the patient [1], reviewing diagnostic tests [3], discussing management options [5], coordinating care [0], and writing this note [6]. JUAN M PERRY MD Sep 12, 2020 11:17
== END ==
LOC: M ONCR 10:10
PROVIDERS: ATTEND General Practice
DX: C61 Malignant neoplasm of prostate (principal)

== ENCOUNTER → 2021-04-02 | Outpatient (REF) | payer MEDICARE, MEDICAID ==
[~2021-04-02] MED LIST changes: +AMLO2.5T3; +CAPE1TAB2 PO; +COLA100C5 PO; +FURO40TA2; -KLOR20TA42 PO; +ONDA8TAB10 PO; +POTA-141 PO; +PROC10TA4 PO
[2021-04-02 17:11] LABS: BLOOD UREA NITROGEN 21 MG/DL (7-18); CALCIUM LEVEL 8.9 MG/DL (8.8-10.2); CARBON DIOXIDE LEVEL 26 MEQ/L (21-32); CHLORIDE LEVEL 111 MEQ/L (98-107); CREATININE FOR GFR 0.92 MG/DL (0.70-1.30); GLOMERULAR FILTRATION RATE > 60.0 (>42); GLUCOSE, FASTING 91 MG/DL (70-100); NT-PRO BNP 3616 PG/ML (<125); POTASSIUM SERUM 4.4 MEQ/L (3.5-5.1); SODIUM LEVEL 143 MEQ/L (136-145)
== END ==
LOC: M LAB REF 15:35
PROVIDERS: ATTEND Physician Assistant
DX: I50.32 Chronic diastolic (congestive) heart failure (principal)

== ENCOUNTER → 2021-04-03 | Outpatient (CLI) | payer MEDICARE, MEDICAID ==
[~2021-04-03] MED LIST changes: +ISOVUE-370 76% 100ML VIAL As Ordered ONE
--- NOTE | 2021-04-03 12:20 | REP ---
INDICATION: METASTATIC COLONG CANER COMPARISON: 07/23/2014 the latest prior TECHNIQUE: Standard helical technique after the intravenous administration of 100 cc Isovue 370 FINDINGS: There is massive left atrial enlargement which has increased from the prior exam. There is a persistent left superior vena cava. There has been previous median sternotomy with probable mitral valvulotomy. There is mediastinal and hilar adenopathy. There are no pleural or pericardial effusions. The imaged upper abdomen shows multiple enhancing hepatic lesions representing a change from the prior exam. There are bilateral renal cysts. Bone window technique throughout the exam shows spinal degenerative changes and an age undetermined T12 anterior wedge compression deformity. Evaluation of the lung harrison shows numerous spiculated lung nodules seen diffusely throughout the lung harrison IMPRESSION: 1. Pulmonary metastatic disease as described above. 2. Mediastinal and hilar adenopathy. 3. Cardiac findings as described above. 4. Evidence of hepatic metastasis. 5. Other findings as described above. <Electronically signed by Aldo Lundberg > 04/03/21 [id number]
== END ==
LOC: M RAD 10:26
PROVIDERS: ATTEND Specialist
DX: C18.9 Malignant neoplasm of colon, unspecified (principal); I50.32 Chronic diastolic (congestive) heart failure; Q26.1 Persistent left superior vena cava; K76.89 Other specified diseases of liver
CPT/HCPCS: 71046; 71260; Q9967

== ENCOUNTER → 2021-04-03 | Outpatient (CLI) | payer MEDICARE, MEDICAID ==
[~2021-04-03] MED LIST changes: -ISOVUE-370 76% 100ML VIAL As Ordered ONE
--- NOTE | 2021-04-03 11:42 | REP ---
INDICATION: CHRONIC DIASTOLIC (CONGESTIVE) HEART FAILURE COMPARISON: 03/06/2015 TECHNIQUE: PA and lateral. FINDINGS: Cardiomegaly and evidence for prior sternotomy. Extensive bilateral airspace disease and rounded mass lesions represent new findings and consistent with malignancy/metastatic disease. Small right effusion cannot be excluded. No pneumothorax. IMPRESSION: Extensive bilateral airspace disease and mass lesions most compatible with malignancy and metastatic disease. Correlation is required. <Electronically signed by Rasheed Lomas > 04/03/21 [id number]
== END ==
LOC: M RAD 10:32
PROVIDERS: ATTEND Physician Assistant
DX: I50.32 Chronic diastolic (congestive) heart failure (principal)

== ENCOUNTER → 2021-04-09 | Outpatient (CLI) | payer MEDICARE, MEDICAID ==
[~2021-04-09] MED LIST changes: -AMLO2.5T3; +AMLO2.5T3 PO; +DIGO0.253 PO; -FURO40TA2
--- NOTE | 2021-04-09 12:54 | RADONC ---
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 He is seen today for palliative RT to his rectosigmoid primary mass to mitigate the risk of further bleeding. Diagnosis/Treatment History Oncologic History Prostate cancer: Remission Intermediate risk prostate cancer cT2a [place] 3+4=7 (6/12 cores+) PSA 5.8. He completed EBRT 79.2 Gy in 44 fractions on 01/23/14. He had 3 years of concurrent ADT per Dr. Cantu. PSA 09/07/20 0.40. Rectosigmoid cancer: Presented on 03/16/21 with melena to [facility]. Was transferred to [facility] and underwent colonoscopy and EGD which revealed a rectosigmoid mass CT scans showed liver and pulmonary metastases Biopsy showed adenocarcinoma He is to start Xeloda with Dr. Schmidt Interval History Here with his brother, main complaint today is SOB, he has valvular a fib and has been off coumadin. He had a CT angio on 04/03/21 which was negative for PE, however innumerable pulmonary metastases were present. He gets DAVE, with minimal movement. Does not have O2 at home. He also has pain in the left upper arm, has been ongoing for the past 3 weeks. Aching constant, feels like he broke or pulled something. He has had no further rectal bleeding and is having regular bowel movements. No pelvic pain. Current Therapy Xeloda pending Stage Rectosigmoid adenocarcinoma [id number] stage IVB Social History: Never smoker Does not drink Allergies / Meds Allergies: Coded Allergies: No Known Allergies (Verified , 07/14/18) Home Meds Active Scripts Capecitabine (Capecitabine) 500 Mg Tablet, 2000 MG PO BID for 14 Days, #84 TAB 6 Refills 4 tabs PO twice daily x 14 day then 7 days off DX Code C18.9 Prov:EVONNE SCHMIDT MD 04/05/21 Prochlorperazine Maleate (Prochlorperazine Maleate) 10 Mg Tablet, 10 MG PO Q6H for 15 Days, #60 TAB 5 Refills Prov:EVONNE SCHMIDT MD 04/02/21 Ondansetron HCl (Ondansetron HCl) 8 Mg Tablet, 8 MG PO TID for nausea/vomiting for 10 Days, #30 TAB 6 Refills Prov:EVONNE SCHMIDT MD 04/02/21 Reported Medications Furosemide (Furosemide) 40 Mg Tablet 04/02/21 Docusate Sodium (Colace) 100 Mg Capsule, 1 CAP PO BID for 30 Days, #60 CAP 03/27/21 Amlodipine Besylate (Amlodipine Besylate) 2.5 Mg Tablet 03/27/21 Digoxin (Digoxin) 125 Mcg Tab, 250 MCG PO DAILY, TAB 07/14/18 Phenobarbital (Phenobarbital) 32.4 Mg Tab, 64.8 MG PO BID, TAB 04/16/17 Potassium Chloride (Klor-Con M20) 20 Meq Tabcr, 20 MEQ PO DAILY, TABCR 04/16/17 Multivitamins (Thera M Plus Tablet) 1 Tab Tab, 1 TAB PO DAILY, TAB 03/05/15 Phenytoin Sodium Extended (Dilantin) 100 Mg Cap, 100 MG PO TID, CAP 07/23/14 Metoprolol Tartrate (Metoprolol Tartrate) 50 Mg Tab, 50 MG PO BID, TAB 07/23/14 Ascorbic Acid (Vitamin C) 500 Mg Tab, 1000 MG PO DAILY, TAB 07/23/14 Discontinued Scripts Capecitabine (Capecitabine) 500 Mg Tablet, 2000 MG PO BID for 14 Days, #84 TAB 6 Refills Prov:EVONNE SCHMIDT MD 03/28/21 Review of Systems Review of Systems Constitutional: Reports: Fatigue, Weight Loss Eyes: Denies: Pain HEENT: Denies: Head Aches Skin: Denies: Rash Pulmonary: Reports: Dyspnea; Denies: Cough, Pleuritic Chest Pain Cardiovascular: Reports: Edema; Denies: Chest Pain Gastrointestinal: Denies: Abdominal Pain, Diarrhea, Melena, Hematochezia Hematologic: Denies: Bruising, Bleeding Excessively Musculoskeletal: Reports: Arm pain; Denies: Neck pain, Back pain Neurological: Denies: Weakness, Numbness Psych: Reports: Mood Normal Physical Examination Vital Signs Wt 172 lbs T 97.7 P 90 RR 20 BP 154/83 O2 81% ambulatory, 87% resting Pain 3 Fatigue 3 General Exam: Alert, Cooperative, Mild Distress (Labored breathing) Eye Exam: PERRLA ENT EXAM: Atraumatic Neck Exam: Supple Chest Exam: Clear to auscultation, Rales, Wheezing Heart Exam: Rate Normal, Regular Rhythm Abdomen Exam: Soft; Negative: Tenderness Skin Exam: Nl turgor and temperature Neuro Exam: Normal Gait, Normal Speech, Cranial Nerves 3-12 NL Psych Exam: Mental status NL Diagnostic and Laboratory Diagnostic Review Radiologic images, relevant labs and pathology reports were personally reviewed and discussed with Mr. Gonzalez. Assessment and Plan Impression Assessment Mr. Gonzalez is a 70 year old male with a history of prostate cancer s/p RT in 2013, in remission and now recently diagnosed metastatic rectal cancer [id number] stage IVB. He is seen today for palliative RT to his rectosigmoid primary mass to mitigate the risk of further bleeding. I reviewed his imaging with him. He has high volume pulmonary metastatic disease in the absence of PE on recent CTA. He has a low ambulatory sat to 81% and is only 87% at rest and with deep breathing. He would thus benefit from home O2. I will place a referral to [facility] for this. I explained that there is no benefit to lung radiation in this setting, rather systemic therapy is the best chance to address the pulmonary disease. For his rectal mass however, I think he would benefit from palliative short- course RT 25 Gy in 5 fractions (with or without xeloda). This would mitigate the risk of further GI bleed. I reviewed his prior prostate RT harrison and there will be significant overlap, this constitutes direct reirradiation which will necessitate we use VMAT to mitigate the risk of significant GI or toxicity. I will give him 25 Gy in 5 fractions and use a CBCT daily to ensure target localization in light of the prior RT dose. I do not think he can tolerate prone treatment due to his pulmonary status, so we will treat supine. I discussed the risks of bowel toxicity from this, but with VMAT I think we will be able to respect his normal anatomy and prevent side effects. With respect to his left humerus I do not have imaging of this site, therefore I will obtain plain X-rays and if there is a measurable lesion present we can given single fraction palliative RT for pain control 8 Gy x 1, this can be done concurrent with his rectal treatment. Simulation for the pelvis +/- left humerus can occur in the next 2-3 days. He agreed to proceed. Performance Status ECOG 2 Plan Palliative reirradiation to the rectosigmoid mass 25 Gy in 5 fractions with VMAT due to prior prostate RT Left humerus plain x-rays If lesion present 8 Gy x 1 fraction Simulation in the coming days Home O2 referral Mr. Gonzalez was encouraged to call with questions or concerns in the interim period. Billing Statement Total time of [37] minutes was spent preparing for the visit [2], obtaining HPI [5], examining the patient [2], reviewing diagnostic tests [5], discussing management options [13], coordinating care [3], and writing this note [7]. JUAN M PERRY MD Apr 09, 2021 12:54
== END ==
LOC: M ONCR 09:31
PROVIDERS: ATTEND General Practice
DX: C78.5 Secondary malignant neoplasm of large intestine and rectum (principal); R91.8 Other nonspecific abnormal finding of lung field; Z85.46 Personal history of malignant neoplasm of prostate; Z92.23 Personal history of estrogen therapy; Z92.3 Personal history of irradiation
CPT/HCPCS: 73060; G0463

== ENCOUNTER → 2021-04-09 | Outpatient (CLI) | payer MEDICARE, MEDICAID ==
[~2021-04-09] MED LIST changes: +AMLO2.5T3; -AMLO2.5T3 PO; -DIGO0.253 PO; +FURO40TA2
--- NOTE | 2021-04-09 13:48 | REP ---
INDICATION: MALIGNANT NEOPLASM OF RECTUM. COMPARISON: None. TECHNIQUE: Two views FINDINGS: There is no acute fracture or destructive osseous lesion IMPRESSION: No acute osseous abnormality <Electronically signed by Aldo Lundberg > 04/09/21 [id number]
== END ==
LOC: M RAD 11:50
PROVIDERS: ATTEND General Practice
DX: C20 Malignant neoplasm of rectum (principal)

== ENCOUNTER 2021-04-18 09:18 | Outpatient (RCR) | payer MEDICARE, MEDICAID | END 2021-04-21 | LOC: M ONCR 09:18 | PROVIDERS: ATTEND General Practice | DX: C20 Malignant neoplasm of rectum (principal) ==

== ENCOUNTER 2021-04-26 16:30 | Inpatient (IN) | payer MEDICARE, MEDICAID ==
[~2021-04-26] VITALS: Ht 165.1 cm; Wt 77.0 kg
[~2021-04-26 16:30] MED LIST changes: -DIGO0.253 PO
[2021-04-26 18:04] LABS: HEMATOCRIT 33.8 % (42.0-52.0); HEMOGLOBIN 10.8 g/dl (13.5-17.5); MEAN CORPUSCULAR HEMOGLOBIN 33.5 pg (27.0-33.0); RED BLOOD COUNT 3.22 10^6/uL (4.30-6.10); WHITE BLOOD COUNT 27.4 10^3/uL (4.0-10.0)
[2021-04-26] MEDS ORDERED: ISOVUE-370 76% 100ML VIAL As Ordered ONE (18:20)
[2021-04-26 18:24] LABS: PLATELET COUNT, AUTOMATED 74 10^3/uL (150-450)
[2021-04-26 18:31] LABS: INR 1.17; PROTHROMBIN TIME 15.3 SECONDS (12.7-14.5)
[2021-04-26 18:46] LABS: ALBUMIN 3.3 GM/DL (3.2-5.2); ALT/SGPT 37 U/L (12-78); BILIRUBIN,DIRECT 0.5 MG/DL (0.0-0.2); BILIRUBIN,TOTAL 1.1 MG/DL (0.2-1.0); BLOOD UREA NITROGEN 29 MG/DL (7-18); CALCIUM LEVEL 8.7 MG/DL (8.8-10.2); CARBON DIOXIDE LEVEL 29 MEQ/L (21-32); CHLORIDE LEVEL 105 MEQ/L (98-107); CK-MB VALUE MASS 4.4 NG/ML (<3.6); CPK CREATINE PHOSPHOKINASE 121 U/L (39-308); CREATININE FOR GFR 0.98 MG/DL (0.70-1.30); DIGOXIN LEVEL 1.6 NG/ML (0.5-2.0); GLOMERULAR FILTRATION RATE > 60.0 (>42); GLUCOSE, FASTING 112 MG/DL (70-100); LIPASE 229 U/L (73-393); MB/CK RELATIVE INDEX 3.64 (< OR =4); NT-PRO BNP 6273 PG/ML (<125); POTASSIUM SERUM 4.2 MEQ/L (3.5-5.1); SODIUM LEVEL 140 MEQ/L (136-145); TOTAL PROTEIN 6.5 GM/DL (6.4-8.2)
[2021-04-26 19:03] LABS: EOSINOPHILS 3 % (0-3); MONOCYTES 4 % (0-5)
[2021-04-26 19:05] LABS: LYMPHOCYTES 53 % (16-44); NEUTROPHILS 40 % (28-66); SMUDGE CELLS 3+
[2021-04-26 19:06] LABS: ANISOCYTOSIS 2+
[2021-04-26 19:07] LABS: PLATELET ESTIMATE DECREASED (NORMAL)
--- OUTSIDE RECORDS SUMMARY | 2021-04-26 19:30 | CCD ---
Author Author Rakel Juana [facility] er Organization Rakel Arias [facility] er Address Unknown Phone Unavailable Care Team Providers Care Surface Water Manager Name Role Phone Marcus Estevez Unavailable PROBLEMS Type Condition ICD9-CM Code [id number] Code Onset Dates Condition S tatus W/U Status Risk SNOMED Code Notes Problem Pure hypercholesterolemia E78.00 Active 305627310 Problem Convulsions R56.9 Active 86099531 Problem Depressive disorder, not elsewhere classified F32.9 Active 58627274 Problem Atrial fibrillation I48.91 Active 494 54480 Problem Malignant neoplasm of colon, unspecified part of colon C18.9 Active confirmed 725948534 Problem Malignant neoplasm of prostate C61 Jul, Active 371390568 Problem Congestive heart failure I50.9 Active 73158552 Problem Essential hypertension I10 Active 03539159 Problem Edema R60.9 Active 358753149 ALLERGIES No Known Allergies ENCOUNTERS from 1950 to 2021-03-25 Encounter Location Date Provider Diagnosis [address] [id number] Feb, Marcus Estevez Malignant neoplasm of colon, unspecified part of colon C18.9 IMMUNIZATIONS Vaccine Route Administration Date Status COVID Vaccine 2nd Dose (Pfizer) Unknown Aug 12, 2020 Administered COVID Vaccine 1st Dose (Pfizer) Unknown Jul 22, 2020 Administered Influenza (FluLaval 6+ mos) Medicare Unknown Mar 20 20 Administered Influenza (Afluria/Fluvirin 3+ yrs) <18 yrs Unknown Mar 09, 2019 Administered Influenza, seasonal unspecified Unknown Jun 30, 2018 Refused Influenza (split), 3 yrs and above 0 Mar 22, 2012 Administered SOCIAL HISTORY Tobacco Use: Social History Observation Description Date Details (start date - stop date) Never Smoker Sex Assigned At : Social History Observation Description Sex Assigned At Unknown Alcohol Screen (Audit-C) Question Answer Notes Did you have a drink containing alcohol in the past year? No Points 0 Interpretation Negative DAST-10 Question Answer Notes Total Score: 0 Interpretation: No problems reported Tobacco Use/Smoking Question Answer Notes Patient is a never smoker REASON FOR REFERRAL from 1950 to 2021-03-25 Reason Colon Cancer with mets to Trena ngs and Liver Diagnosis 1 Malignant neoplasm of colon, unspecified part of colon (C18.9) Referral Organization [facility] Referring Provider First Name Marcus Referring Provider Last Name Zenaida Referring Provider Specialty Family Medicine Referred Provider [facility], Referred Provider Specialty Oncology Referral Priority Routine General Notes Zulema Mendenhall 03/25/2021 9:26 :21 AM > sent VITAL SIGNS No information MEDICATIONS Medication SIG (Take, Route, Frequency, Duration) Notes Start Da te End Date Status Metoprolol Tartrate 50 Tablet Oral 1 two times daily for 30 - Sep, Active Metoprolol Tartrate 25 Tablet Oral 1 Tablet two times daily for 30 Myke- Nov, Active Phenytoin Sodium Extended 100 MG 1 capsule Orally Three times a day for 90 Active Gabapentin 100 MG 1 capsule Orally every night for 30 day(s) Jun, Active Famotidine 20 Tablet Oral 1 daily for 30 Myke- Sep, Active PHENobarbital 32.4 MG two tablets Orally Twice a day for 30 days reference number - [id number] Sep, Active Warfarin Sodium 6 MG 1 tablet Orally 1 daily [place]- Mar, Active Potassium Chloride [place] ER 20 Tablet ER Oral 1 daily for 30 Myke- Sep, Active Digoxin 0.125 Oral 1 daily for 0 Myke- Mar, Active Furosemide 40 Tablet Oral 1 daily for 30 Sep, Active Daily Vites Tablet Oral 1 daily for 30 Myke- Sep, Active PROCEDURES No Information RESULTS No Results REASON FOR VISIT Patient MEDICAL (GENERAL) HISTORY Type Description Date Medical History A-fib , (Desc:Atrial fibrillation) ; Medical History Edema ; Medical History BPH associated with nocturia (600.01) ; Medical History Hypercholesterolemia (272.0) ; Medical History CHF (congestive heart failure) (428.0) ; Medical History Hypertension (401.9) ; Medical History Renal insufficiency (593.9) ; Medical History Juvenile rheumatic fever , (Desc:Rheumat ic fever) ; Medical History Gout (274.9) ; Medical History Elevated PSA (790.93) ; Medical History Pre-op evaluation (V72.84) ; Medical History Depression (311) ; Medical History Seizures (780.39) ; Medical History Mitral valve replaced (V43.3) ; Medical History Prostate cancer (185) ; Medical History Sepsis ; Medical History Heart valve replaced Medical History Disorder of kidney and ureter Medical History Rheumatic fever without mention of heart involvement Medical History Septicemia Medical History Gout Medical History Gout Surgical History Cholecystectomy ; Surgical History Replace Mitral Valve, w/Bypass ; Surgical History Atrial ThrombectomyMVR ; 08/20/2012 Surgical History Appendectomy ; 02/20/2015 Hospitalization History see surgeries Hospitalization History Rectal bleeding 03/2017 Goals Section No Information Health Concerns No Information MEDICAL EQUIPMENT No Information MENTAL STATUS No Information FUNCTIONAL STATUS No Information ASSESSMENTS Encounter Date Diagnosis Assessment Notes Treatment Notes Treatm ent Clinical Notes Feb, Malignant neoplasm of colon, unspecified part of colon (ICD-10 - C18.9) PLAN OF TREATMENT Medication Medication Name Sig Start Date Stop Date PHENobarbital 32.4 MG two tablets Orally Twice a day for 30 days Sep, Referrals Referral Date Details Colon Cancer with mets [facility] Next Appt Details Provider Name:Marcus Estevez, 2021-04-03 10: 00:00 AM, [address] [place] [address], [phone], Provider Name:Marcus Estevez 2021-07-10 10: 30:00 AM, [address] [place] [address], [phone], Insurance Providers Payer Name Payer Address Payer Phone Insured Name Patient Relati onship to Insured Coverage Start Date Coverage End Date Medicaid [address] [facility] [id number] Renzo Gonzalez Medicare [address] [facility] [id number] Roseanne Goznalez
--- OUTSIDE RECORDS SUMMARY | 2021-04-26 19:30 | CCD | Continuity of Care Document ---
Author Author Edson LOGAN MD Organization Unknown Address [facility] [address] Phone [phone] Care Team Providers Care Weapons Officer [employer] Name Role Phone Marcus Estevez MD AUTM [phone] Mario Monet MD AUTM Edgar Andrews MD AUTM [phone] Problems Active Problems Provider Date Heart failure Paul Logan MD Onset: 09/06/2012 Atrial fibrillation Paul Logan MD Onset: 09/06/2012 Electrocardiogram abnormal Paul Logan MD Onset: 2012 Rheumatic mitral stenosis Paul Logan MD Onset: 013 Postsurgical Status Other Paul Logan MD Onset: 013 Obesity Paul Logan MD Onset: 09/06/2012 Neoplasms Of Unspecified Nature, Other Specified Sites Paul Logan MD Onset: 09/09/2012 Chronic diastolic heart failure Paul Logan MD Onset: 0 09/29/2012 Mitral valve disorder Paul Lgoan MD Onset: 09/29/2012 Heart valve replacement Paul Logan MD Onset: 3 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 Paul Logan MD Onset: 10/29/2012 Preoperative cardiovascular examination Paul Logan MD Onset: 08/15/2013 Aneurysm of thoracic aorta Nisha Dueñas NP Onset: 2013 Aortic valve disorder Nisha Dueñas NP Onset: 05/26/2014 Chronic atrial fibrillation Nisha Dueñas NP Onset: 05/30 Transplantation of heart valve RICKY Alexandra Onset: 03/03/2017 Dietary management surveillance RICKY Alexandra Onset: 03/03/2017 Long-term current use of anticoagulant OMERO Geiger Onset: 11/24/2018 Mitral leaflet abnormality OMERO Geiger Onset: 11/24 Hypertensive heart disease with heart failure OMERO Juan Onset: 11/24/2018 Permanent atrial fibrillation OMERO Geiger Onset: Social History Type Date Description Comments Sex Unknown ETOH Use Never used alcohol Tobacco Use Start: Unknown Patient has never smoked Smoking Status Reviewed: 02/06/21 Patient has never smoked Exercise Type/Frequency Walks sporadically Exercise Type/Frequency Does housework sporadica lly Exercise Limitations Shortness Of Breath Allergies, Adverse Reactions, Alerts Description No Known Drug Allergies Medications Active Medications SIG Qnty Indications Ordering Provide r Date Amlodipine Besylate 2.5mg Tablets 1 by mouth every day in the morning 90tabs I11.0 Carlos Segura 02/06/2021 Vitamin C 1000mg Tablets 1/2 by mouth every day Unknown 01/19/2020 Potassium Chloride Danica ER 20Meq Tablets ER Take One Tablet By Mouth Every Day 90tabs I50.32 Paul Logan MD 09/30/2018 Spironolactone 25mg Tablets Take One-Half Tablet By Mouth Every Day 45tabs I50.32 Paul Logan MD 10/2014 Furosemide 40mg Tablets take one tablet by mouth every morning and take 1/2 tablet by mouth 8 hours later 120tabs Paul Logan MD 11/23/2014 Warfarin Sodium 2mg Tablets 1-2 by mouth daily or as directed 180tabs Paul Logan MD 07/31/19 15 Digoxin 250mcg Tablets Take One Tablet By Mouth Every Day 90tabs I48.2 Paul Logan MD 05/03/2014 Docqlace 100mg Capsules take one capsule by mouth twice a day 180caps K59.00 Paul Logan MD 06/05/20 13 Warfarin Sodium 5mg Tablets take 1-2 tablets by mouth once daily or as directed 180tabs Marcus Dee MD 11/08/2012 Aspir-Low 81mg Tablets DR Carranza p Edgar Albright MD 09/28/2012 Daily Vitamins Tablets 1 po daiy Marcus Estevez MD 09/05/2012 Phenytoin Sodium Extended 100mg Ca psules 1 po tid Marcus Estevez MD 09/05/2012 Metoprolol Tartrate 50mg Tablets Take 1 Tablet By Mouth Two Times A Day 180tabs I48.2 Paul Logan MD 09/05/2012 Phenobarbital 64.8mg Tablets 1 po bid Marcus Estevez MD 06/24/2012 Immunizations Description No Information Available Vital Signs Date Vital Result Comment 03/12/2021 2:24pm Weight 173.00 lb Height 66 inches 5'6" BMI (Body Mass Index) 27.9 kg/m2 BP Systolic Sitting 124 mmHg Ra, medium cuff BP Diastolic Sitting 80 mmHg Ra, medium cuff 02/06/2021 12:52pm Weight 176.00 lb Height 66 inches 5'6" BMI (Body Mass Index) 28.4 kg/m2 Heart Rate 70 /min BP Systolic Sitting 158 mmHg Ra, large cuff BP Diastolic Sitting 86 mmHg Ra, large cuff Results Test Acquired Date Facility Test Result H/L Range Note CBC without Differential 12/31/2020 [facility] - White Blood Count 25.5 High 4.0-10.0 Red Blood Count 4.10 Low 4.50-6.00 Platelets 161 Low 172-450 Hemoglobin 13.2 Low 14.0-18.0 Hematocrit 39.0 Low 42.0-54.0 CMP 12/31/2020 [facility] - Albumin Serum/Plasma 3.8 Alt - SGPT 29 Calcium Ser/Plasma Mass/Vol 8.6 Carbon Dioxide Ser/Plasm 31 Chloride Serum/Plasma 106 Alkaline Phosphatase 155 Potassium 4.5 Protein Total 6.7 Sodium 144 Ast - Sgot 28 BUN - Urea Nitrogen 17 Glucose 94 74-106 Creatinine For GFR 1.00 Lipid Profile/Cardiac Risk Pro 12/31/2020 [facility])- - Triglycerides 111 Cholesterol 181 0-200 HDL 46 40-60 LDL Cholesterol 113 Chol/HDL Ratio 3.9 Laboratory test finding 12/31/2020 [facility] ([facility])- - Thyroid Stimulating Hormone 1.929 Free T4 0.8 NT Probnp QN Ser/Plas 1090 Procedures Date Code Description Status 03/13/2021 78024 Anticoagulant MGMT F or Patient Taking Warfarin, Inc Review & Intr Completed 03/12/2021 71758 Office/Outpatient Established Lo w MDM 20-29 Min Completed 03/04/2021 05862 Anticoagulant MGMT F or Patient Taking Warfarin, Inc Review & Intr Completed 02/27/2021 89312 Anticoagulant MGMT F or Patient Taking Warfarin, Inc Review & Intr Completed 02/21/2021 10202 Anticoagulant MGMT F or Patient Taking Warfarin, Inc Review & Intr Completed 02/12/2021 71562 Anticoagulant MGMT F or Patient Taking Warfarin, Inc Review & Intr Completed 02/06/2021 24564 Office/Outpatient Established Mo d MDM 30-39 Min Completed 02/06/2021 36049 ECG 12-Lead Completed 02/05/2021 39221 Anticoagulant MGMT F or Patient Taking Warfarin, Inc Review & Intr Completed 01/28/2021 37548 Anticoagulant MGMT F or Patient Taking Warfarin, Inc Review & Intr Completed 01/22/2021 62239 Chronic Care MGMT 20 Mins Clinical Staff Time Per Calendar Month Completed 01/21/2021 61459 Anticoagulant MGMT F or Patient Taking Warfarin, Inc Review & Intr Completed 01/15/2021 91574 Anticoagulant MGMT F or Patient Taking Warfarin, Inc Review & Intr Completed 01/07/2021 31823 Anticoagulant MGMT F or Patient Taking Warfarin, Inc Review & Intr Completed 12/31/2020 61434 Anticoagulant MGMT F or Patient Taking Warfarin, Inc Review & Intr Completed 12/28/2020 32537 Anticoagulant MGMT F or Patient Taking Warfarin, Inc Review & Intr Completed 12/25/2020 41383 Echocardiogram 2-D Doppler Color Completed 12/20/2020 34169 Chronic Care MGMT 20 Mins Clinical Staff Time Per Calendar Month Completed 12/20/2020 04653 Chronic Care Management Services Ea Addl 20 Min Completed 12/11/2020 13304 Anticoagulant MGMT F or Patient Taking Warfarin, Inc Review & Intr Completed 12/04/2020 43278 Anticoagulant MGMT F or Patient Taking Warfarin, Inc Review & Intr Completed 11/21/2020 54532 Chronic Care MGMT 20 Mins Clinical Staff Time Per Calendar Month Completed 11/21/2020 92209 Chronic Care Management Services Ea Addl 20 Min Completed 11/20/2020 42689 Anticoagulant MGMT F or Patient Taking Warfarin, Inc Review & Intr Completed 11/01/2020 44036 Complex Chronic Care MGMT Servic e Ea Addl 30 Min Completed 11/01/2020 15929 Complex Chronic Care Management SVC 1St 60 Min Completed 10/25/2020 81060 Anticoagulant MGMT F or Patient Taking Warfarin, Inc Review & Intr Completed 09/26/2020 06989 Chronic Care MGMT 20 Mins Clinical Staff Time Per Calendar Month Completed 09/26/2020 13741 Chronic Care Management Services Ea Addl 20 Min Completed 09/24/2020 11365 Anticoagulant MGMT F or Patient Taking Warfarin, Inc Review & Intr Completed Medical Devices Description No Information Available Encounters Type Date Location Provider Dx Diagnosis Office Visit 03/12/2021 2:00p Main Office OMERO Duron I11 .0 Hypertensive heart disease with heart failure Z79.01 intermediate (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 of a 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 Office Visit 02/06/2021 1:00p Main Office OMERO Duron I48 .21 Permanent atrial fibrillation I11.0 Hypertensive heart disease w [facility] heart failure I50.32 Chronic diastolic (congestiv e) heart failure Z95.3 Presence of xenogenic heart valve I34.2 Nonrheumatic mitral (valve) stenosis R94.31 Abnormal electrocardiogram [ ECG] [EKG] E66.8 Other obesity Z71.3 Dietary counseling and surve illance Office Visit 01/22/2021 4:28p Main Office Paul Logan MD I48.21 Permanent atrial fibrillation E66.8 Other obesity Office Visit 12/20/2020 4:36p Main Office Paul Logan MD I48.21 Permanent atrial fibrillation E66.8 Other obesity Office Visit 11/21/2020 12:35p Main Office Paul Logan MD I48.21 Permanent atrial fibrillation I11.0 Hypertensive heart disease w [facility] heart failure Office Visit 11/01/2020 7:49a Main Office Paul Logan MD I48.21 Permanent atrial fibrillation I11.0 Hypertensive heart disease w [facility] heart failure Office Visit 09/26/2020 2:54p Main Office Paul Logan MD I48.21 Permanent atrial fibrillation I11.0 Hypertensive heart disease w [facility] heart failure Assessments Date Code Description Provider 03/13/2021 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 OMERO Duron 03/13/2021 I48.21 Permanent atrial fibrillation Ca karlindOMERO Curtis 03/13/2021 Z79.01 terminal manager (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 of antic oagulants OMERO Duron 03/12/2021 I11.0 Hypertensive heart disease with heart failure Sarina LMatteo Antonio, PA 03/12/2021 Z79.01 terminal manager (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 of antic oagulants Sarina L. Paco, PA 03/04/2021 I48.21 Permanent atrial fibrillation Ka renny Colon Symenow, PA-C 03/04/2021 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 Katie E Symenow, PA-C 03/04/2021 Z79.01 terminal manager (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 of antic oagulants Katie E Symenow, PA-C 02/27/2021 I48.21 Permanent atrial fibrillation Ca ssadanialra Ernesto Antonio, PA 02/27/2021 Z79.01 terminal manager (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 of antic oagulants Sarina L. Paco, PA 02/21/2021 I48.21 Permanent atrial fibrillation Ca sosa Antonio, PA 02/21/2021 I34.2 Nonrheumatic mitral (valve) sten osis Sarina LMatteo Antonio, PA 02/21/2021 Z79.01 intermediate (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 of antic oagulants Sarina L. Paco, PA 02/12/2021 I48.21 Permanent atrial fibrillation Ka renny Colon Symenow, PA-C 02/12/2021 Z79.01 intermediate (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 of antic oagulants Katie E Symenow, PA-C 02/06/2021 I48.21 Permanent atrial fibrillation Ca sosa Antonio, PA 02/06/2021 I11.0 Hypertensive heart disease with heart failure Sarina Antonio, PA 02/06/2021 I50.32 Chronic diastolic (congestive) h eart failure Sarina Ernesto Antonio, PA 02/06/2021 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 Sarina Antonio, PA 02/06/2021 I34.2 Nonrheumatic mitral (valve) sten osis Sarina Antonio, PA 02/06/2021 R94.31 Abnormal electrocardiogram [ECG] [EKG] Sarina Antonio, PA 02/06/2021 E66.8 Other obesity SarinaOMERO Hankins Cha, se 02/06/2021 Z71.3 Dietary counseling and surveilla lauroe OMERO Duron 02/05/2021 Z79.01 intermediate (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 of antic oagulants Katie Sewell, PA-C 01/28/2021 Z79.01 terminal manager (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 of antic oagulants Katie Sewell, PA-C 01/28/2021 I48.21 Permanent atrial fibrillation Ka renny Colon Donato, PA-C 01/22/2021 I48.21 Permanent atrial fibrillation Francisco Javier Logan MD 01/22/2021 E66.8 Other obesity Paul Logan MD 01/21/2021 Z79.01 intermediate (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 of antic oagulants Katie Sewell, PA-C 01/15/2021 Z79.01 terminal manager (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 of antic oagulants Katie Sewell, PA-C 01/07/2021 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 Sarina Antonio, PA 01/07/2021 Z79.01 intermediate (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 of antic oagulants Sarina Antonio, PA 12/31/2020 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 Katie Darlene Sewell, OMERO-C 12/31/2020 I48.21 Permanent atrial fibrillation Ka renny Colon Donato, PA-C 12/31/2020 Z79.01 terminal manager (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 of antic oagulants Katie Sweell, PA-C 12/28/2020 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 Sarina Antonio PA 12/28/2020 I48.21 Permanent atrial fibrillation Ca sosa Antonio PA 12/28/2020 Z79.01 terminal manager (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 of antic oagulants Sarina Antonio PA 12/25/2020 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 ECHO 12/20/2020 I48.21 Permanent atrial fibrillation Francisco Javier Logan MD 12/20/2020 E66.8 Other obesity Paul Logan MD 12/11/2020 I48.21 Permanent atrial fibrillation Ka te E Symenow, PA-C 12/11/2020 Z79.01 intermediate (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 of antic oagulants Katie E Symenow, PA-C 12/04/2020 I48.21 Permanent atrial fibrillation Ka te E Symenow, PA-C 12/04/2020 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 Katie E Symenow, PA-C 12/04/2020 Z79.01 terminal manager (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 of antic oagulants Katie E Symenow, PA-C 11/21/2020 I48.21 Permanent atrial fibrillation Francisco Javier Logan MD 11/21/2020 I11.0 Hypertensive heart disease with heart failure Paul Logan MD 11/20/2020 I48.21 Permanent atrial fibrillation Ka te E Symenow, PA-C 11/20/2020 Z79.01 terminal manager (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 of antic oagulants Katie E Symenow, PA-C 11/01/2020 I48.21 Permanent atrial fibrillation Francisco Javier Logan MD 11/01/2020 I11.0 Hypertensive heart disease with heart failure Paul Logan MD 10/25/2020 I48.21 Permanent atrial fibrillation Ka te E Symenow, PA-C 10/25/2020 Z79.01 terminal manager (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 of antic oagulants Katie E Symenow, PA-C 09/26/2020 I48.21 Permanent atrial fibrillation Francisco Javier Logan MD 09/26/2020 I11.0 Hypertensive heart disease with heart failure Paul Logan MD 09/24/2020 I48.21 Permanent atrial fibrillation Ka te E Symenow, PA-C 09/24/2020 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 Katie E Symenow, PA-C 09/24/2020 Z79.01 terminal manager (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 of antic oagulants Katie E Symenow, PA-C Plan of Treatment Future Appointment(s):* 09/10/2021 2:30 pm - OMERO Duron at Main Office 03/12/2021 - OMERO Duron* I11.0 Hypertensive heart disease with heart failure* Recommendations:* Continue amlodipine, metoprolol, Spironolactone, and furosemide at the current dosages Encouraged patient to please obtain a BP cuff to monitor readings at home * Z79.01 intermediate (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 of a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* Recommendations:* He is agreeable to continue his warfarin as directed and recheck via his home mo nitor in 1 week * All * Follow up:* Follow up in 6 months Functional Status Functional Condition Comment Date Status Independent with all ADL's Activ e Mental Status Description No Information Available Referrals Description No Information Available
--- OUTSIDE RECORDS SUMMARY | 2021-04-26 19:30 | CCD ---
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 Active confirmed 84173008 Problem Convulsions R56.9 Active 40169525 Problem Malignant neoplasm of colon, unspecified C18.9 Active confirmed 184011768 Problem Pure hypercholesterolemia E78.00 Active 226529169 Problem Essential hypertension I10 Active 37268292 Problem Edema R60.9 Active 921059377 Problem Atrial fibrillation I48.91 Active 494 99814 Problem 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 confirmed 41124302 ALLERGIES No Known Allergies ENCOUNTERS from 1950 to 2021-04-08 Encounter Location Date Provider Diagnosis [address] [address] Mar, Marcus Estevez Malignant neoplasm of colon, unspecified C18.9 ; 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 ; 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 ; Atrial fibrillation I48.91 ; Edema R60.9 ; Essential hypertension I10 ; Congestive heart failure I50.9 ; Malignant neoplasm of prostate C61 ; Depressive disorder, not elsewhere classified F32.9 ; Convulsions R56.9 and Pure hypercholesterolemia E78.00 IMMUNIZATIONS Vaccine Route Administration Date Status COVID [...] is a never smoker REASON FOR REFERRAL No Information VITAL SIGNS Height 63.5 in Mar, Weight 176 lbs Mar, BMI 30.68 kg/m2 Mar, Temperature 98.0 degrees Fahrenheit Mar, Heart Rate 78 /min Mar, Oximetry 93 % Mar, Blood pressure systolic 130 mm Hg Mar, Blood pressure diastolic 80 mm Hg Mar, MEDICATIONS Medication SIG (Take, Route, Frequency, Duration) Notes Start Da te End Date Status Metoprolol Tartrate 25 Tablet Oral 1 Tablet two times daily for 30 - Nov, Active Potassium Chloride Danica ER 20 Tablet ER Oral 1 daily for 30 - Sep, Active Digoxin 0.125 Oral 1 daily for 0 Mar, Active Metoprolol Tartrate 50 Tablet Oral 1 two times daily for 30 Sep, Active Spironolactone 25 MG 1 tablet Orally for 30 day(s) Active Warfarin Sodium 6 MG 1 tablet Orally 1 daily Mar, Not-Taking Gabapentin 100 MG 1 capsule Orally every night for 30 day(s) Jun, Active Daily Vites Tablet Oral 1 daily for 30 - Sep, Active Phenytoin Sodium Extended 100 MG 1 capsule Orally Three times a day for 90 Active Famotidine 20 Tablet Oral 1 daily for 30 Sep, Active PHENobarbital 32.4 MG two tablets Orally Twice a day for 30 days reference number - [id number] Sep, Active Furosemide 40 Tablet Oral 1 daily for 30 Sep, Active PROCEDURES No Information RESULTS No Results REASON FOR VISIT Hospital Follow Up MEDICAL (GENERAL) HISTORY Type Description Date Medical [...] see surgeries Hospitalization History Rectal bleeding 03/2017 Hospitalization History [facility] 03/16/[address] [facility] [place] 03/21/21 Goals Section No Information Health Concerns No Information MEDICAL EQUIPMENT No Information MENTAL STATUS No Information FUNCTIONAL STATUS No Information ASSESSMENTS Encounter Date Diagnosis Assessment Notes Treatment Notes Treatm ent Clinical Notes Mar, Malignant neoplasm of colon, unspecified (ICD-10 - C18.9) pt having bx of the liver next week and is holding the coumadin until then. then will be on chemo therapy Mar, Secondary malignant neoplasm of unspecif ied lung (ICD-10 - C78.00) Mar, Secondary malignant neoplasm of liver and intrahepatic bile duct (ICD-10 - C78.7) Mar, Atrial fibrillation (ICD-10 - I48.91) Mar, Edema (ICD-10 - R60.9) Mar, Essential hypertension (ICD-10 - I10) Mar, Congestive heart failure (ICD-10 - I50.9) pt sees dr mcconnell tomorrow Mar, Depressive disorder, not elsewhere classified (I CD-10 - F32.9) Mar, Convulsions (ICD-10 - R56.9) Mar, Pure hypercholesterolemia (ICD-10 - E78.00) Mar, Other pt will continue his other current meds and have f/u in jun with labs. Jul, Malignant neoplasm of prostate (ICD-10 - C61) PLAN OF TREATMENT Treatment Notes Assessment Notes Clinical Notes Malignant neoplasm of colon, unspecified pt having bx of the liver next week and is holding the coumadin until then. then will be on chemo therapy Congestive heart failure pt sees dr mcconnell tomorrow Next Appt Details prn Reason:routine Provider Name:Marcus Estevez, 2021-07-10 10: 30:00 AM, [address] [place], [address], Follow Up:prnroutine Insurance Providers Payer Name Payer Address Payer Phone Insured Name Patient Relati onship to Insured Coverage Start Date Coverage End Date Medicaid [address] [facility] [id number] Renzo Gonzalez self Medicare [address] [facility] [id number] Roseanne Gonzalez self
--- OUTSIDE RECORDS SUMMARY | 2021-04-26 19:30 | CCD | Continuity of Care Document ---
Author Author Edson LOGAN MD Organization Unknown Address [place] [address] Phone [phone] Care Team Providers Care Finance Officer Name Role Phone Marcus Estevez MD AUTM [phone] Mario Monet MD AUTM [phone] Edgar Andrews MD AUTM [phone] Brayan, Mustaphaquinton Swift MD AUTM [phone] Problems Active Problems Provider Date Heart failure [...] Onset: 0 09/29/2012 Mitral valve disorder Paul Logan MD Onset: 09/29/2012 Heart valve replacement Paul [...] RICKY Alexandra Onset: 03/03/2017 Dietary management surveillance Nilam Colon José, GENERAL MAINTENANCE TECHNICIAN-C Onset: 03/03/2017 Long-term current use of anticoagulant OMERO Geiger Onset: 11/24/2018 Mitral leaflet abnormality OMERO Geiger Onset: 11/24 Hypertensive heart disease with heart failure OMERO uJan Onset: 11/24/2018 Permanent atrial fibrillation OMERO Geiger Onset: Social History Type Date Description Comments Sex Unknown ETOH Use Never used alcohol Tobacco Use Start: Unknown Patient has never smoked Smoking Status Reviewed: 02/06/21 Patient has never smoked Exercise Type/Frequency Walks sporadically Exercise Type/Frequency Does housework sporadica lly Exercise Limitations Shortness Of Breath Allergies and adverse reactions Description No Known Drug Allergies Medications Active Medications SIG Qnty Indications Ordering Provide r Date Amlodipine Besylate 2.5mg Tablets 1 by mouth every day in the morning 90tabs I11.0 Carlos Segura 02/06/2021 Vitamin C 1000mg Tablets 1/2 by mouth every day Unknown 01/19/2020 Potassium Chloride Danica ER 20Meq Tablets ER Take One Tablet By Mouth Every Day 90tabs I50.32 Paul Logan MD 09/30/2018 Furosemide 40mg Tablets take one tablet by mouth every morning and take 1/2 tablet by mouth 8 hours later 120tabs Paul Logan MD 11/23/2014 Digoxin 250mcg Tablets Take One Tablet By Mouth Every Day 90tabs I48.2 Paul Logan MD 05/03/2014 Docqlace 100mg Capsules take one capsule by mouth twice a day 180caps K59.00 Paul Logan MD 06/05/20 13 Daily Vitamins Tablets 1 po daiy Marcus Estevez MD 09/05/2012 Phenytoin Sodium Extended 100mg Ca psules 1 po tid Marcus Estevez MD 09/05/2012 Metoprolol Tartrate 50mg Tablets Take 1 Tablet By Mouth Two Times A Day 180tabs I48.2 Paul Logan MD 09/05/2012 Phenobarbital 64.8mg Tablets 1 po bid Marcus Estevez MD 06/24/2012 Immunizations Description No Information Available Vital Signs Date Vital Result Comment 03/29/2021 9:13am Weight 177.00 lb Height 66 inches 5'6" BMI (Body Mass Index) 28.6 kg/m2 Heart Rate 87 /min BP Systolic Sitting 144 mmHg Ra, large cuff BP Diastolic Sitting 84 mmHg Ra, large cuff 03/12/2021 2:24pm Weight 173.00 lb Height 66 inches 5'6" BMI (Body Mass Index) 27.9 kg/m2 BP Systolic Sitting 124 mmHg Ra, medium cuff BP Diastolic Sitting 80 mmHg Ra, medium cuff Results Test Acquired Date Facility Test Result H/L Range Note Laboratory test finding 04/02/2021 [facility] [phone] NT-Pro BNP 3616 pg/mL High <125 BMP 04/02/2021 [facility] nter [phone] Glucose, Fasting 91 mg/dL Normal 70-100 Blood Urea Nitrogen 21 mg/dL High 7-18 Creatinine For GFR 0.92 mg/dL Normal 0.70-1.30 Glomerular Filtration Rate > 60.0 Normal >42 1 Sodium Level 143 mEq/L Normal 136-145 Potassium Serum 4.4 mEq/L Normal 3.5-5.1 Chloride Level 111 mEq/L High 98-107 Carbon Dioxide Level 26 mEq/L Normal 21-32 Anion Gap 6 mEq/L Low 8-16 Calcium Level 8.9 mg/dL Normal 8.8-10.2 Laboratory test finding 04/02/2021 [facility] [phone] Magnesium Level 2.0 mg/dL Normal 1.8-2.4 CBC without Differential 12/31/2020 Patient's Choi e (315)- - White Blood Count 25.5 [...] T4 0.8 NT Probnp QN Ser/Plas 1090 1 Units are mL/min/1.73 m2 Chronic Kidney Disease Staging per NKF: Stage I & II GFR >=60 Normal to Mildly Decreased Stage III GFR 30-59 Moderately Decreased Stage IV GFR 15-29 Severely Decreased Stage V GFR <15 Very Little GFR Left ESRD GFR <15 on BUSINESS PROCESS ANALYST Procedures Date Code Description Status 03/29/2021 95254 Office/Outpatient Established Mo d MDM 30-39 Min Completed 03/13/2021 79581 Anticoagulant MGMT F or Patient Taking Warfarin, Inc Review & Intr Completed 03/12/2021 54894 Office/Outpatient Established Lo w MDM 20-29 Min Completed 03/04/2021 92986 Anticoagulant MGMT F or Patient Taking Warfarin, Inc Review & Intr Completed 02/27/2021 20826 Anticoagulant MGMT F or Patient Taking Warfarin, Inc Review & Intr Completed 02/22/2021 22993 Chronic Care MGMT 20 Mins Clinical Staff Time Per Calendar Month Completed 02/22/2021 97147 Chronic Care Management Services Ea Addl 20 Min Completed 02/21/2021 73018 Anticoagulant MGMT F or Patient Taking Warfarin, Inc Review & Intr Completed 02/12/2021 56453 Anticoagulant MGMT F or Patient Taking Warfarin, Inc Review & Intr Completed 02/06/2021 33699 Office/Outpatient Established Mo d MDM 30-39 Min Completed 02/06/2021 71708 ECG 12-Lead Completed 02/05/2021 92444 Anticoagulant MGMT F or Patient Taking Warfarin, Inc Review & Intr Completed 01/28/2021 93265 Anticoagulant MGMT F or Patient Taking Warfarin, Inc Review & Intr Completed 01/22/2021 58469 Chronic Care MGMT 20 Mins Clinical Staff Time Per Calendar Month Completed 01/21/2021 73853 Anticoagulant MGMT F or Patient Taking Warfarin, Inc Review & Intr Completed 01/15/2021 56645 Anticoagulant MGMT F or Patient Taking Warfarin, Inc Review & Intr Completed 01/07/2021 67590 Anticoagulant MGMT F or Patient Taking Warfarin, Inc Review & Intr Completed 12/31/2020 83697 Anticoagulant MGMT F or Patient Taking Warfarin, Inc Review & Intr Completed 12/28/2020 19860 Anticoagulant MGMT F or Patient Taking Warfarin, Inc Review & Intr Completed 12/25/2020 17280 Echocardiogram 2-D Doppler Color Completed 12/20/2020 14441 Chronic Care MGMT 20 Mins Clinical Staff Time Per Calendar Month Completed 12/20/2020 55748 Chronic Care Management Services Ea Addl 20 Min Completed 12/11/2020 53371 Anticoagulant MGMT F or Patient Taking Warfarin, Inc Review & Intr Completed 12/04/2020 11264 Anticoagulant MGMT F or Patient Taking Warfarin, Inc Review & Intr Completed 11/21/2020 20247 Chronic Care MGMT 20 Mins Clinical Staff Time Per Calendar Month Completed 11/21/2020 59478 Chronic Care Management Services Ea Addl 20 Min Completed 11/20/2020 16514 Anticoagulant MGMT F or Patient Taking Warfarin, Inc Review & Intr Completed 11/01/2020 48714 Complex Chronic Care MGMT Servic e Ea Addl 30 Min Completed 11/01/2020 31168 Complex Chronic Care Management SVC 1St 60 Min Completed 10/25/2020 04556 Anticoagulant MGMT F or Patient Taking Warfarin, Inc Review & Intr Completed Medical Devices Description No Information Available Encounters Type Date Location Provider Dx Diagnosis Office Visit 03/29/2021 9:30a Main Office OMERO Duron I50 .32 Chronic diastolic (congestive) heart failure Z79.01 terminal carman (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 of a 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 Office Visit 03/12/2021 2:00p Main Office OMERO Duron I11 .0 Hypertensive heart disease with heart failure Z79.01 USP (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 of a 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 Office Visit 02/22/2021 12:29p Main Office Paul Logan MD I48.21 Permanent atrial fibrillation I50.32 Chronic diastolic (congestiv e) heart failure Office Visit 02/06/2021 1:00p Main Office OMERO Duron I48 .21 Permanent atrial fibrillation I11.0 Hypertensive heart disease w ith heart failure I50.32 Chronic diastolic (congestiv e) [...] atrial fibrillation I11.0 Hypertensive heart disease w [facility] heart failure Office Visit 11/01/2020 7:49a Main Office Paul Logan MD I48.21 Permanent atrial fibrillation I11.0 Hypertensive heart disease w 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 OMERO Duron 03/13/2021 I48.21 Permanent atrial fibrillation Ca OMERO Baker 03/13/2021 Z79.01 USP (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 of antic melaniegulants OMERO Duron 03/12/2021 I11.0 Hypertensive heart disease with heart failure Sarina Antonio, OMERO 03/12/2021 Z79.01 terminal carman (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 of antic melaniegulanOMERO Obrien 03/04/2021 I48.21 Permanent atrial fibrillation Familia Mccray PA-C 03/04/2021 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 Katie Sewell PA-C 03/04/2021 Z79.01 terminal carman (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 of antic melaniegulanbogdan Sewell PA-C 02/27/2021 I48.21 Permanent atrial fibrillation Ca OMERO Baker 02/27/2021 Z79.01 terminal carman (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 of antic melaniegulants OMERO Duron 02/22/2021 I48.21 Permanent atrial fibrillation Francisco Javier Logan MD 02/22/2021 I50.32 Chronic diastolic (congestive) h eart failure Paul Logan MD 02/21/2021 I48.21 Permanent atrial fibrillation Ca sosa Antonio, PA 02/21/2021 I34.2 Nonrheumatic mitral (valve) sten osis Sarina Antonio, PA 02/21/2021 Z79.01 USP (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 of antic oagulants Sarina Antonio, PA 02/12/2021 I48.21 Permanent atrial fibrillation Familia Mccray, PA-C 02/12/2021 Z79.01 USP (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 of antic oagulants Katie Sewell, PA-C 02/06/2021 I48.21 Permanent atrial fibrillation Ca sosa Antonio, PA 02/06/2021 I11.0 Hypertensive heart disease with heart failure Sarina Antonio, PA 02/06/2021 I50.32 Chronic diastolic (congestive) h eart failure Sarina Antonio PA 02/06/2021 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 Sarina Antonio, PA 02/06/2021 I34.2 Nonrheumatic mitral (valve) sten osjorge luis Sarina Antonio, PA 02/06/2021 R94.31 Abnormal electrocardiogram [ECG] [EKG] Sarina Antonio, PA 02/06/2021 E66.8 Other obesity OMERO Murphy Cha, se 02/06/2021 Z71.3 Dietary counseling and surveilla nce Sarina Antonio PA 02/05/2021 Z79.01 terminal carman (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 of antic oagulants Katie Cochranw, PA-C 01/28/2021 Z79.01 USP (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 of antic oagulants Katie Sewell, PA-C 01/28/2021 I48.21 Permanent atrial fibrillation Familia Mccray, PA-C 01/22/2021 I48.21 Permanent atrial fibrillation Francisco Javier Logan MD 01/22/2021 E66.8 Other obesity Paul Logan MD 01/21/2021 Z79.01 terminal carman (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 of antic oagulants Katie E Symenow, PA-C 01/15/2021 Z79.01 terminal carman (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 of antic oagulants Katie E Symenow, PA-C 01/07/2021 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 Paco, PA 01/07/2021 Z79.01 terminal carman (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 of antic oagulants Sarina L. 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 Paco, PA 12/28/2020 I48.21 Permanent atrial fibrillation Ca ssandra L. Paco, PA 12/28/2020 Z79.01 USP (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 of antic oagulants Sarina L. 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 Katie E Symenow, PA-C 12/04/2020 Z79.01 USP (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 of antic oagulants Katie E Symenow, PA-C 11/21/2020 I48.21 Permanent atrial fibrillation Francisco Javier Logan MD 11/21/2020 I11.0 Hypertensive heart disease with heart failure Paul Logan MD 11/20/2020 I48.21 Permanent atrial fibrillation Familia Mccray PA-C 11/20/2020 Z79.01 terminal carman (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 of antic oagulants Katie Sewell PA-C 11/01/2020 I48.21 Permanent atrial fibrillation Francisco Javier Logan MD 11/01/2020 I11.0 Hypertensive heart disease with heart failure Paul Logan MD 10/25/2020 I48.21 Permanent atrial fibrillation Familia Mccray PA-C 10/25/2020 Z79.01 terminal carman (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 of antic oagulanbogdan Sewell PA-C Plan of Treatment Future Appointment(s):* 05/10/2021 8:00 am - OMERO Duron at Main Office * 09/10/2021 2:30 pm - OMERO Duron at Main Office 03/29/2021 - OMERO Duron* I50.32 Chronic diastolic (congestive) heart failure* Recommendations:* Please obtain lab work and chest x-ray Increase furosemide to 1 pill in the morning and 1/2 pill in the afternoon Is having close followup with Dr. Schmidt - will be able to monitor patient's weight as he does not weigh himself at home If his breathing does not improve over the weekend will arrange an echocardiogram at the hospital * Z79.01 terminal carman (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 of a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* Recommendations:* When it is deemed safe per oncology, patient should be started back on warfarin We will continue management of his warfarin * All * Follow up:* CHF check in 3-4 weeks Functional Status Functional Condition Comment Date Status Independent with all ADL's Activ e Mental Status Description No Information Available Referrals Description No Information Available
--- OUTSIDE RECORDS SUMMARY | 2021-04-26 19:30 | CCD | Continuity of Care Document ---
Author Author Edson MORENO SC Organization Unknown Address [address] [place] [address], [place] [address] Phone [phone] Care Team Providers Care Swing Driver Name Role Phone Marcus Estevez MD AUTM [phone] Mario Monet MD AUTM [phone] Edgar Andrews MD AUTM [phone] Brayan, Mustapha Swift MD AUTM [phone] Problems Active Problems Provider Date Heart failure Paul Diggs MD Onset: 09/06/2012 Atrial fibrillation Paul Diggs MD Onset: 09/06/2012 Electrocardiogram abnormal Paul Diggs MD Onset: 2012 Rheumatic mitral stenosis Paul Diggs MD Onset: 013 Postsurgical Status Other Paul Diggs MD Onset: 013 Obesity Paul Diggs MD Onset: 09/06/2012 Neoplasms Of Unspecified Nature, Other Specified Sites Paul Diggs MD Onset: 09/09/2012 Chronic diastolic heart failure Paul Diggs MD Onset: 0 09/29/2012 Mitral valve disorder Paul Diggs MD Onset: 09/29/2012 Heart valve replacement Paul Diggs MD Onset: 3 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 Paul Diggs MD Onset: 10/29/2012 Preoperative cardiovascular examination Paul Diggs MD Onset: 08/15/2013 Aneurysm of thoracic aorta Nisha Dueñas NP Onset: 2013 Aortic valve disorder Nisha Dueñas NP Onset: 05/26/2014 Chronic atrial fibrillation Nisha Dueñas NP Onset: 05/30 Transplantation of heart valve RICKY Alexandra Onset: 03/03/2017 Dietary management surveillance Nilam Colon José, OBIEE REPORT DEVELOPER-C Onset: 03/03/2017 Long-term current use of anticoagulant [...] By Mouth Every Day 90tabs I50.32 Paul Diggs MD 09/30/2018 Furosemide 40mg Tablets take one tablet by mouth every morning and take 1/2 tablet by mouth 8 hours later 120tabs Paul Diggs MD 11/23/2014 Digoxin 250mcg Tablets Take One Tablet By Mouth Every Day 90tabs I48.2 Paul Diggs MD 05/03/2014 Docqlace 100mg Capsules take one capsule by mouth twice a day 180caps K59.00 Paul Diggs MD 06/05/20 13 Daily Vitamins Tablets 1 po daiy Marcus Estevez MD 09/05/2012 Phenytoin Sodium Extended 100mg Ca psules 1 po tid Marcus Estevez MD 09/05/2012 Metoprolol Tartrate 50mg Tablets Take 1 Tablet By Mouth Two Times A Day 180tabs I48.2 Paul Diggs MD 09/05/2012 Phenobarbital 64.8mg Tablets 1 po [...] Ser/Plas 1090 Procedures Date Code Description Status 03/29/2021 79018 Office/Outpatient Established Mo d MDM 30-39 Min Completed 03/13/2021 82018 Anticoagulant MGMT F or Patient Taking Warfarin, Inc Review & Intr Completed 03/12/2021 77603 Office/Outpatient Established Lo w MDM 20-29 Min Completed 03/04/2021 25379 Anticoagulant MGMT F or Patient Taking Warfarin, Inc Review & Intr Completed 02/27/2021 20571 Anticoagulant MGMT F or Patient Taking Warfarin, Inc Review & Intr Completed 02/21/2021 09178 Anticoagulant MGMT F or Patient Taking Warfarin, Inc Review & Intr Completed 02/12/2021 57960 Anticoagulant MGMT F or Patient Taking Warfarin, Inc Review & Intr Completed 02/06/2021 88482 Office/Outpatient Established Mo d MDM 30-39 Min Completed 02/06/2021 13339 ECG 12-Lead Completed 02/05/2021 54075 Anticoagulant MGMT F or Patient Taking Warfarin, Inc Review & Intr Completed 01/28/2021 39432 Anticoagulant MGMT F or Patient Taking Warfarin, Inc Review & Intr Completed 01/22/2021 55812 Chronic Care MGMT 20 Mins Clinical Staff Time Per Calendar Month Completed 01/21/2021 35919 Anticoagulant MGMT F or Patient Taking Warfarin, Inc Review & Intr Completed 01/15/2021 99136 Anticoagulant MGMT F or Patient Taking Warfarin, Inc Review & Intr Completed 01/07/2021 30406 Anticoagulant MGMT F or Patient Taking Warfarin, Inc Review & Intr Completed 12/31/2020 96633 Anticoagulant MGMT F or Patient Taking Warfarin, Inc Review & Intr Completed 12/28/2020 91992 Anticoagulant MGMT F or Patient Taking Warfarin, Inc Review & Intr Completed 12/25/2020 00543 Echocardiogram 2-D Doppler Color Completed 12/20/2020 11898 Chronic Care MGMT 20 Mins Clinical Staff Time Per Calendar Month Completed 12/20/2020 38246 Chronic Care Management Services Ea Addl 20 Min Completed 12/11/2020 77677 Anticoagulant MGMT F or Patient Taking Warfarin, Inc Review & Intr Completed 12/04/2020 38423 Anticoagulant MGMT F or Patient Taking Warfarin, Inc Review & Intr Completed 11/21/2020 05009 Chronic Care MGMT 20 Mins Clinical Staff Time Per Calendar Month Completed 11/21/2020 62698 Chronic Care Management Services Ea Addl 20 Min Completed 11/20/2020 80409 Anticoagulant MGMT F or Patient Taking Warfarin, Inc Review & Intr Completed 11/01/2020 63726 Complex Chronic Care MGMT Servic e Ea Addl 30 Min Completed 11/01/2020 38796 Complex Chronic Care Management SVC 1St 60 Min Completed 10/25/2020 30571 Anticoagulant MGMT F or Patient Taking Warfarin, Inc Review & Intr Completed Medical Devices Description No Information Available Encounters Type Date Location Provider Dx Diagnosis Office Visit 03/29/2021 9:30a Main Office [facility] I50 .32 Chronic diastolic (congestive) heart failure Z79.01 custodial (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 of a 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 Office Visit 03/12/2021 2:00p Main Office [facility] I11 .0 Hypertensive heart disease with heart failure Z79.01 termite control servicer (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 of a 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 Office Visit 02/06/2021 1:00p Main Office [facility] I48 .21 Permanent atrial fibrillation I11.0 Hypertensive heart disease w [facility] heart failure I50.32 Chronic diastolic (congestiv e) heart failure Z95.3 Presence of xenogenic heart valve I34.2 Nonrheumatic mitral (valve) stenosis R94.31 Abnormal electrocardiogram [ ECG] [EKG] E66.8 Other obesity Z71.3 Dietary counseling and surve illance Office Visit 01/22/2021 4:28p Main Office Paul Diggs MD I48.21 Permanent atrial fibrillation E66.8 Other obesity Office Visit 12/20/2020 4:36p Main Office Paul Diggs MD I48.21 Permanent atrial fibrillation E66.8 Other obesity Office Visit 11/21/2020 12:35p Main Office Paul Diggs MD I48.21 Permanent atrial fibrillation I11.0 Hypertensive heart disease w [facility] heart failure Office Visit 11/01/2020 7:49a Main Office Paul Diggs MD I48.21 Permanent atrial fibrillation I11.0 Hypertensive heart disease w [facility] heart failure Assessments Date Code Description Provider 03/29/2021 I50.32 Chronic diastolic (congestive) h eart failure [facility] 03/29/2021 Z79.01 termite control servicer (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 of antic melaniegulants [facility] 03/13/2021 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 [facility] 03/13/2021 I48.21 Permanent atrial fibrillation Ca [facility] Baker 03/13/2021 Z79.01 termite control servicer (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 of antic oagulants [facility] 03/12/2021 I11.0 Hypertensive heart disease with heart failure [facility] 03/12/2021 Z79.01 termite control servicer (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 of antic oagulants [facility] 03/04/2021 I48.21 Permanent atrial fibrillation Familia Mccray PA-C 03/04/2021 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 Katie Darlene Cochranw, PA-C 03/04/2021 Z79.01 termite control servicer (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 of antic oagulants Katie Cochranw, PA-C 02/27/2021 I48.21 Permanent atrial fibrillation Ca sosa Moreno, PA 02/27/2021 Z79.01 termite control servicer (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 of antic oagulants Sarina LMatteo Moreno, PA 02/21/2021 I48.21 Permanent atrial fibrillation Ca sosa Moreno, PA 02/21/2021 I34.2 Nonrheumatic mitral (valve) sten osis Sarina Moreno, PA 02/21/2021 Z79.01 termite control servicer (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 of antic oagulants Sarina Moreno, PA 02/12/2021 I48.21 Permanent atrial fibrillation Ka renny Darlene Sewell, PA-C 02/12/2021 Z79.01 custodial (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 of antic oagulants Katie Sewell, PA-C 02/06/2021 I48.21 Permanent atrial fibrillation Ca sosa Moreno, PA 02/06/2021 I11.0 Hypertensive heart disease with heart failure Sarina Moreno, PA 02/06/2021 I50.32 Chronic diastolic (congestive) h eart failure Sarina Moreno, PA 02/06/2021 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 Sarina Moreno, PA 02/06/2021 I34.2 Nonrheumatic mitral (valve) sten osis Sarina Moreno, PA 02/06/2021 R94.31 Abnormal electrocardiogram [ECG] [EKG] Sarina Moreno, PA 02/06/2021 E66.8 Other obesity Sarina Orozco Cha, se, PA 02/06/2021 Z71.3 Dietary counseling and surveilla nce Sarina Moreno, PA 02/05/2021 Z79.01 custodial (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 of antic oagulants Katie Sewell, PA-C 01/28/2021 Z79.01 custodial (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 of antic oagulants Katie E Symenow, PA-C 01/28/2021 I48.21 Permanent atrial fibrillation Ka te E Symenow, PA-C 01/22/2021 I48.21 Permanent atrial fibrillation Francisco Javier Diggs MD 01/22/2021 E66.8 Other obesity Paul Diggs MD 01/21/2021 Z79.01 termite control servicer (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 of antic oagulants Katie E Symenow, PA-C 01/15/2021 Z79.01 custodial (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 of antic oagulants Katie E Symenow, PA-C 01/07/2021 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 Paco, PA 01/07/2021 Z79.01 custodial (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 of antic oagulants Sarina L. 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 Katie E Symenow, PA-C 12/31/2020 I48.21 Permanent atrial fibrillation Ka te E Symenow, PA-C 12/31/2020 Z79.01 termite control servicer (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 of antic oagulants Katie E Symenow, PA-C 12/28/2020 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 Paco, PA 12/28/2020 I48.21 Permanent atrial fibrillation Ca ssandra L. Paco, PA 12/28/2020 Z79.01 custodial (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 of antic oagulants Sarina L. 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 Katie Sewell PA-C 12/04/2020 Z79.01 custodial (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 of antic oagulants Katie Sewell PA-C 11/21/2020 I48.21 Permanent atrial fibrillation Francisco Javier Diggs MD 11/21/2020 I11.0 Hypertensive heart disease with heart failure Paul Diggs MD 11/20/2020 I48.21 Permanent atrial fibrillation Familia Mccray PA-C 11/20/2020 Z79.01 termite control servicer (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 of antic oagulanbogdan Sewell PA-C 11/01/2020 I48.21 Permanent atrial fibrillation Francisco Javier Diggs MD 11/01/2020 I11.0 Hypertensive heart disease with heart failure Paul Diggs MD 10/25/2020 I48.21 Permanent atrial fibrillation Familia Mccray PA-C 10/25/2020 Z79.01 termite control servicer (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 of antic melaniegulanbogdan Sewell PA-C Plan of Treatment Future Appointment(s):* 05/10/2021 8:00 am - [facility] at Main Office * 09/10/2021 2:30 pm - [facility] at Main Office 03/29/2021 - [facility]* I50.32 Chronic diastolic (congestive) heart failure* New Labs:* NT Probnp QN Ser/Plas, Ordered: 03/29/21 * Magnesium Level, Ordered: 03/29/21 * BMP, Ordered: 03/29/21 * New Xrays:* XR Chest 2 Views, Ordered: 03/29/21 * Recommendations:* Please obtain lab work and chest x-ray Increase furosemide to 1 pill in the morning and 1/2 pill in the afternoon Is having close followup with Dr. Schmidt - will be able to monitor patient's weight as he does not weigh himself at home If his breathing does not improve over the weekend will arrange an echocardiogram at the hospital * Z79.01 custodial (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 of a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* Recommendations:* When it [...]
--- OUTSIDE RECORDS SUMMARY | 2021-04-26 19:30 | CCD | Continuity of Care Document ---
Author Author Edson LOGAN MD Organization Unknown Address [place] [address] Phone [phone] Care Team Providers Care Propellant Assembler Name Role Phone Marcus Estevez MD AUTM [phone] Mario Monet MD AUTM Edgar Andrews MD AUTM [phone] Problems Active Problems Provider Date Heart failure [...] by mouth 8 hours later 120tabs Paul Logna MD 11/23/2014 Warfarin Sodium 2mg Tablets 1-2 [...] 1090 Procedures Date Code Description Status 03/13/2021 48369 Anticoagulant MGMT F or Patient Taking Warfarin, Inc Review & Intr Completed 03/12/2021 56818 Office/Outpatient Established Lo w MDM 20-29 Min Completed 03/04/2021 53405 Anticoagulant MGMT F or Patient Taking Warfarin, Inc Review & Intr Completed 02/27/2021 28351 Anticoagulant MGMT F or Patient Taking Warfarin, Inc Review & Intr Completed 02/21/2021 78621 Anticoagulant MGMT F or Patient Taking Warfarin, Inc Review & Intr Completed 02/12/2021 82937 Anticoagulant MGMT F or Patient Taking Warfarin, Inc Review & Intr Completed 02/06/2021 28963 Office/Outpatient Established Mo d MDM 30-39 Min Completed 02/06/2021 67072 ECG 12-Lead Completed 02/05/2021 51368 Anticoagulant MGMT F or Patient Taking Warfarin, Inc Review & Intr Completed 01/28/2021 12357 Anticoagulant MGMT F or Patient Taking Warfarin, Inc Review & Intr Completed 01/22/2021 28438 Chronic Care MGMT 20 Mins Clinical Staff Time Per Calendar Month Completed 01/21/2021 92879 Anticoagulant MGMT F or Patient Taking Warfarin, Inc Review & Intr Completed 01/15/2021 16609 Anticoagulant MGMT F or Patient Taking Warfarin, Inc Review & Intr Completed 01/07/2021 60586 Anticoagulant MGMT F or Patient Taking Warfarin, Inc Review & Intr Completed 12/31/2020 30984 Anticoagulant MGMT F or Patient Taking Warfarin, Inc Review & Intr Completed 12/28/2020 49871 Anticoagulant MGMT F or Patient Taking Warfarin, Inc Review & Intr Completed 12/25/2020 65593 Echocardiogram 2-D Doppler Color Completed 12/20/2020 28098 Chronic Care MGMT 20 Mins Clinical Staff Time Per Calendar Month Completed 12/20/2020 45964 Chronic Care Management Services Ea Addl 20 Min Completed 12/11/2020 26567 Anticoagulant MGMT F or Patient Taking Warfarin, Inc Review & Intr Completed 12/04/2020 83002 Anticoagulant MGMT F or Patient Taking Warfarin, Inc Review & Intr Completed 11/21/2020 00083 Chronic Care MGMT 20 Mins Clinical Staff Time Per Calendar Month Completed 11/21/2020 03682 Chronic Care Management Services Ea Addl 20 Min Completed 11/20/2020 58295 Anticoagulant MGMT F or Patient Taking Warfarin, Inc Review & Intr Completed 11/01/2020 97433 Complex Chronic Care MGMT Servic e Ea Addl 30 Min Completed 11/01/2020 85087 Complex Chronic Care Management SVC 1St 60 Min Completed 10/25/2020 65874 Anticoagulant MGMT F or Patient Taking Warfarin, Inc Review & Intr Completed 09/26/2020 37187 Chronic Care MGMT 20 Mins Clinical Staff Time Per Calendar Month Completed 09/26/2020 02815 Chronic Care Management Services Ea Addl 20 Min Completed 09/24/2020 45726 Anticoagulant MGMT F or Patient Taking Warfarin, Inc Review & Intr Completed Medical Devices Description No Information Available Encounters Type Date Location Provider Dx Diagnosis Office Visit 03/12/2021 2:00p Main Office [facility] I11 .0 Hypertensive heart disease with heart failure Z79.01 shelter (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 of a 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 Office Visit 02/06/2021 1:00p Main Office [facility] I48 .21 Permanent atrial fibrillation I11.0 Hypertensive heart disease w [facility] heart failure I50.32 Chronic diastolic (congestiv [...] I11.0 Hypertensive heart disease w [facility] heart failure Office Visit 11/01/2020 7:49a Main Office Paul Logan MD I48.21 Permanent atrial fibrillation I11.0 Hypertensive heart disease w [facility] heart failure Office Visit 09/26/2020 2:54p Main Office Paul Logan MD I48.21 Permanent atrial fibrillation I11.0 Hypertensive heart disease w [facility] heart failure Assessments Date Code Description Provider 03/13/2021 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 [facility] 03/13/2021 I48.21 Permanent atrial fibrillation Ca karlindOMERO Curtis 03/13/2021 Z79.01 termite technician (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 of antic oagulants [facility] 03/12/2021 I11.0 Hypertensive heart disease with heart failure Sarina LMatteo Antonio, PA 03/12/2021 Z79.01 termite technician (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 of antic oagulants Sarina L. Paco, PA 03/04/2021 I48.21 Permanent atrial fibrillation Ka renny Colon Symenow, PA-C 03/04/2021 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 Katie E Symenow, PA-C 03/04/2021 Z79.01 termite technician (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 of antic oagulants Katie E Symenow, PA-C 02/27/2021 I48.21 Permanent atrial fibrillation Ca ssadanialra Ernesto Antonio, PA 02/27/2021 Z79.01 termite technician (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 of antic oagulants Sarina L. Paco, PA 02/21/2021 I48.21 Permanent atrial fibrillation Ca sosa Antonio, PA 02/21/2021 I34.2 Nonrheumatic mitral (valve) sten osis Sarina LMatteo Antonio, PA 02/21/2021 Z79.01 shelter (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 of antic oagulants Sarina L. Paco, PA 02/12/2021 I48.21 Permanent atrial fibrillation Ka renny Colon Symenow, PA-C 02/12/2021 Z79.01 shelter (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 of antic oagulants Katie E [...] and surveilla lauroe [facility] 02/05/2021 Z79.01 shelter (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 of antic oagulants Katie Sewell, PA-C 01/28/2021 Z79.01 termite technician (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 of antic oagulants Katie Sewell, PA-C 01/28/2021 I48.21 Permanent atrial fibrillation Ka renny Colon Donato, PA-C 01/22/2021 I48.21 Permanent atrial fibrillation Francisco Javier Logan MD 01/22/2021 E66.8 Other obesity Paul Logan MD 01/21/2021 Z79.01 shelter (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 of antic oagulants Katie Sewell, PA-C 01/15/2021 Z79.01 termite technician (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 of antic oagulants Katie Sewell, PA-C 01/07/2021 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 Sarina Antonio, PA 01/07/2021 Z79.01 shelter (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 of antic oagulants Sarina Antonio, PA 12/31/2020 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 Katie Darlene Sewell, OMERO-C 12/31/2020 I48.21 Permanent atrial fibrillation Ka renny Colon Donato, PA-C 12/31/2020 Z79.01 termite technician (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 of antic oagulants Katie Sewell, PA-C 12/28/2020 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 Sarina Antonio PA 12/28/2020 I48.21 Permanent atrial fibrillation Ca sosa Antonio PA 12/28/2020 Z79.01 termite technician (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 of antic oagulants Sarina Antonio PA 12/25/2020 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 ECHO 12/20/2020 I48.21 Permanent atrial fibrillation Francisco Javier Logan MD 12/20/2020 E66.8 Other obesity Paul Logan MD 12/11/2020 I48.21 Permanent atrial fibrillation Ka te E Symenow, PA-C 12/11/2020 Z79.01 shelter (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 of antic oagulants Katie E Symenow, PA-C 12/04/2020 I48.21 Permanent atrial fibrillation Ka te E Symenow, PA-C 12/04/2020 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 Katie E Symenow, PA-C 12/04/2020 Z79.01 termite technician (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 of antic oagulants Katie E Symenow, PA-C 11/21/2020 I48.21 Permanent atrial fibrillation Francisco Javier Logan MD 11/21/2020 I11.0 Hypertensive heart disease with heart failure Paul Logan MD 11/20/2020 I48.21 Permanent atrial fibrillation Ka te E Symenow, PA-C 11/20/2020 Z79.01 termite technician (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 of antic oagulants Katie E Symenow, PA-C 11/01/2020 I48.21 Permanent atrial fibrillation Francisco Javier Logan MD 11/01/2020 I11.0 Hypertensive heart disease with heart failure Paul Logan MD 10/25/2020 I48.21 Permanent atrial fibrillation Ka te E Symenow, PA-C 10/25/2020 Z79.01 termite technician (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 of antic oagulants Katie E Symenow, PA-C 09/26/2020 I48.21 Permanent atrial fibrillation Francisco Javier Logan MD 09/26/2020 I11.0 Hypertensive heart disease with heart failure aPul Logan MD 09/24/2020 I48.21 Permanent atrial fibrillation Ka te E Symenow, PA-C 09/24/2020 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 Katie E Symenow, PA-C 09/24/2020 Z79.01 termite technician (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 of antic oagulants Katie E Symenow, PA-C Plan of Treatment Future Appointment(s):* 09/10/2021 2:30 pm - [facility] at Main Office 03/12/2021 - [facility]* I11.0 Hypertensive heart disease with heart failure* Recommendations:* Continue amlodipine, metoprolol, Spironolactone, and furosemide at the current dosages Encouraged patient to please obtain a BP cuff to monitor readings at home * Z79.01 shelter (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 of a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* Recommendations:* He is [...]
--- OUTSIDE RECORDS SUMMARY | 2021-04-26 19:30 | CCD | Continuity of Care Document ---
Author Author Edson LOGAN MD Organization Unknown Address [facility] [place] [address] Phone [phone] Care Team Providers Care Laundry Superintendent Name Role Phone Marcus Estevez MD AUTM [phone] Mario Monet MD AUTM Edgar Andrews MD AUTM [phone] Brayan, Mustaphaquinton Swift MD AUTM [phone] Problems Active Problems Provider Date Heart failure [...] 03/03/2017 Dietary management surveillance Nilam Colon José, GARMENT EXAMINER-C Onset: 03/03/2017 Long-term current use of anticoagulant [...] H/L Range Note Laboratory test finding 04/02/2021 [facility] [phone] NT-Pro BNP 3616 pg/mL High <125 BMP 04/02/2021 [facility] nter [phone] Glucose, Fasting 91 mg/dL Normal 70-100 Blood [...] mg/dL Normal 8.8-10.2 Laboratory test finding 04/02/2021 [facility] [phone] Magnesium Level 2.0 mg/dL Normal 1.8-2.4 CBC [...] Little GFR Left ESRD GFR <15 on [facility] Procedures Date Code Description Status 03/29/2021 24724 Office/Outpatient Established Mo d MDM 30-39 Min Completed 03/13/2021 87259 Anticoagulant MGMT F or Patient Taking Warfarin, Inc Review & Intr Completed 03/12/2021 33684 Office/Outpatient Established Lo w MDM 20-29 Min Completed 03/04/2021 34870 Anticoagulant MGMT F or Patient Taking Warfarin, Inc Review & Intr Completed 02/27/2021 41076 Anticoagulant MGMT F or Patient Taking Warfarin, Inc Review & Intr Completed 02/22/2021 92606 Chronic Care MGMT 20 Mins Clinical Staff Time Per Calendar Month Completed 02/22/2021 81850 Chronic Care Management Services Ea Addl 20 Min Completed 02/21/2021 08118 Anticoagulant MGMT F or Patient Taking Warfarin, Inc Review & Intr Completed 02/12/2021 73245 Anticoagulant MGMT F or Patient Taking Warfarin, Inc Review & Intr Completed 02/06/2021 23883 Office/Outpatient Established Mo d MDM 30-39 Min Completed 02/06/2021 94084 ECG 12-Lead Completed 02/05/2021 81013 Anticoagulant MGMT F or Patient Taking Warfarin, Inc Review & Intr Completed 01/28/2021 16209 Anticoagulant MGMT F or Patient Taking Warfarin, Inc Review & Intr Completed 01/22/2021 42350 Chronic Care MGMT 20 Mins Clinical Staff Time Per Calendar Month Completed 01/21/2021 47169 Anticoagulant MGMT F or Patient Taking Warfarin, Inc Review & Intr Completed 01/15/2021 19279 Anticoagulant MGMT F or Patient Taking Warfarin, Inc Review & Intr Completed 01/07/2021 87336 Anticoagulant MGMT F or Patient Taking Warfarin, Inc Review & Intr Completed 12/31/2020 74351 Anticoagulant MGMT F or Patient Taking Warfarin, Inc Review & Intr Completed 12/28/2020 94911 Anticoagulant MGMT F or Patient Taking Warfarin, Inc Review & Intr Completed 12/25/2020 79331 Echocardiogram 2-D Doppler Color Completed 12/20/2020 42361 Chronic Care MGMT 20 Mins Clinical Staff Time Per Calendar Month Completed 12/20/2020 89036 Chronic Care Management Services Ea Addl 20 Min Completed 12/11/2020 28778 Anticoagulant MGMT F or Patient Taking Warfarin, Inc Review & Intr Completed 12/04/2020 98778 Anticoagulant MGMT F or Patient Taking Warfarin, Inc Review & Intr Completed 11/21/2020 11617 Chronic Care MGMT 20 Mins Clinical Staff Time Per Calendar Month Completed 11/21/2020 90144 Chronic Care Management Services Ea Addl 20 Min Completed 11/20/2020 03257 Anticoagulant MGMT F or Patient Taking Warfarin, Inc Review & Intr Completed 11/01/2020 08177 Complex Chronic Care MGMT Servic e Ea Addl 30 Min Completed 11/01/2020 15321 Complex Chronic Care Management SVC 1St 60 Min Completed 10/25/2020 74156 Anticoagulant MGMT F or Patient Taking Warfarin, Inc Review & Intr Completed Medical Devices Description No Information Available Encounters Type Date Location Provider Dx Diagnosis Office Visit 03/29/2021 9:30a Main Office [facility] I50 .32 Chronic diastolic (congestive) heart failure 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 Office Visit 03/12/2021 2:00p Main Office [facility] I11 .0 Hypertensive heart disease with heart failure Z79.01 prison (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 of a 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 Office Visit [...] atrial fibrillation I11.0 Hypertensive heart disease w [facility] heart failure Office Visit 11/01/2020 7:49a Main Office Paul Logan MD I48.21 Permanent atrial fibrillation I11.0 Hypertensive heart disease w [facility] heart failure Assessments Date Code Description Provider 03/29/2021 I50.32 Chronic diastolic (congestive) h eart failure OM[facility]on 03/29/2021 Z79.01 prison (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 of antic oagulants OMERO [facility]on 03/13/2021 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 OMERO Duron 03/13/2021 I48.21 Permanent atrial fibrillation Ca OMERO Baker 03/13/2021 Z79.01 prison (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 of antic melaniegulants OMERO [facility]on 03/12/2021 I11.0 Hypertensive heart disease with heart failure Sarina Antonio, OMERO 03/12/2021 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ntic melaniegulanOMERO Obrien 03/04/2021 I48.21 Permanent atrial fibrillation Familia Mccray PA-C 03/04/2021 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 Katie Sewell PA-C 03/04/2021 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ntic melaniegulanbogdan Sewell PA-C 02/27/2021 I48.21 Permanent atrial fibrillation Ca OMERO Baker 02/27/2021 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ntic melaniegulants OMERO Duron 02/22/2021 I48.21 Permanent atrial fibrillation Francisco Javier Logan MD 02/22/2021 I50.32 Chronic diastolic (congestive) h eart failure Paul Logan MD 02/21/2021 I48.21 Permanent atrial fibrillation Ca sosa Antonio, PA 02/21/2021 I34.2 Nonrheumatic mitral (valve) sten osis Sarina Antonio, PA 02/21/2021 Z79.01 prison (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 of antic oagulants Sarina Antonio, PA 02/12/2021 I48.21 Permanent atrial fibrillation Familia Mccray, PA-C 02/12/2021 Z79.01 prison (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 of antic oagulants Katie Sewell, [...] surveilla nce Sarina Antonio PA 02/05/2021 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ntic oagulants Katie Cochranw, PA-C 01/28/2021 Z79.01 prison (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 of antic oagulants Katie Sewell, PA-C 01/28/2021 I48.21 Permanent atrial fibrillation Familia Mccray, PA-C 01/22/2021 I48.21 Permanent atrial fibrillation Francisco Javier Logan MD 01/22/2021 E66.8 Other obesity Paul Logan MD 01/21/2021 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ntic oagulants Katie E Symenow, PA-C 01/15/2021 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ntic oagulants Katie E Symenow, PA-C 01/07/2021 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 Paco, PA 01/07/2021 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ntic oagulants Sarina L. 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 Paco, PA 12/28/2020 I48.21 Permanent atrial fibrillation Ca ssandra L. Paco, PA 12/28/2020 Z79.01 prison (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 of antic oagulants Sarina L. 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 Katie E Symenow, PA-C 12/04/2020 Z79.01 prison (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 of antic oagulants Katie E Symenow, PA-C 11/21/2020 I48.21 Permanent atrial fibrillation Francisco Javier Logan MD 11/21/2020 I11.0 Hypertensive heart disease with heart failure Paul Logan MD 11/20/2020 I48.21 Permanent atrial fibrillation Familia Mccray PA-C 11/20/2020 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ntic oagulants Katie Sewell PA-C 11/01/2020 I48.21 Permanent atrial fibrillation Francisco Javier Logan MD 11/01/2020 I11.0 Hypertensive heart disease with heart failure Paul Logan MD 10/25/2020 I48.21 Permanent atrial fibrillation Familia Mccray PA-C 10/25/2020 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ntic oagulanbogdan Sewell PA-C [...] an echocardiogram at the hospital * 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* Recommendations:* When it [...]
--- OUTSIDE RECORDS SUMMARY | 2021-04-26 19:30 | CCD | Continuity of Care Document ---
Author Author Edson ANTONIO AK Organization Unknown Address [address] [place] [address], [place] [address] Phone [phone] Care Team Providers Care Shotgun Shell Loading Machine Operator Name Role Phone Marcus Estevez MD AUTM [phone] Mario Monet MD AUTM Edgar Andrews MD AUTM [phone] Problems Active Problems Provider Date Heart failure [...] Index) 28.6 kg/m2 Heart Rate 87 /min 03/12/2021 2:24pm Weight 173.00 lb Height 66 [...] 1090 Procedures Date Code Description Status 03/29/2021 16940 Office/Outpatient Established Mo d MDM 30-39 Min Completed 03/13/2021 62334 Anticoagulant MGMT F or Patient Taking Warfarin, Inc Review & Intr Completed 03/12/2021 69311 Office/Outpatient Established Lo w MDM 20-29 Min Completed 03/04/2021 14868 Anticoagulant MGMT F or Patient Taking Warfarin, Inc Review & Intr Completed 02/27/2021 07572 Anticoagulant MGMT F or Patient Taking Warfarin, Inc Review & Intr Completed 02/21/2021 93468 Anticoagulant MGMT F or Patient Taking Warfarin, Inc Review & Intr Completed 02/12/2021 19549 Anticoagulant MGMT F or Patient Taking Warfarin, Inc Review & Intr Completed 02/06/2021 06733 Office/Outpatient Established Mo d MDM 30-39 Min Completed 02/06/2021 05250 ECG 12-Lead Completed 02/05/2021 97573 Anticoagulant MGMT F or Patient Taking Warfarin, Inc Review & Intr Completed 01/28/2021 83338 Anticoagulant MGMT F or Patient Taking Warfarin, Inc Review & Intr Completed 01/22/2021 35822 Chronic Care MGMT 20 Mins Clinical Staff Time Per Calendar Month Completed 01/21/2021 43464 Anticoagulant MGMT F or Patient Taking Warfarin, Inc Review & Intr Completed 01/15/2021 89125 Anticoagulant MGMT F or Patient Taking Warfarin, Inc Review & Intr Completed 01/07/2021 11548 Anticoagulant MGMT F or Patient Taking Warfarin, Inc Review & Intr Completed 12/31/2020 91163 Anticoagulant MGMT F or Patient Taking Warfarin, Inc Review & Intr Completed 12/28/2020 22074 Anticoagulant MGMT F or Patient Taking Warfarin, Inc Review & Intr Completed 12/25/2020 68037 Echocardiogram 2-D Doppler Color Completed 12/20/2020 70733 Chronic Care MGMT 20 Mins Clinical Staff Time Per Calendar Month Completed 12/20/2020 08504 Chronic Care Management Services Ea Addl 20 Min Completed 12/11/2020 36329 Anticoagulant MGMT F or Patient Taking Warfarin, Inc Review & Intr Completed 12/04/2020 58400 Anticoagulant MGMT F or Patient Taking Warfarin, Inc Review & Intr Completed 11/21/2020 35956 Chronic Care MGMT 20 Mins Clinical Staff Time Per Calendar Month Completed 11/21/2020 39590 Chronic Care Management Services Ea Addl 20 Min Completed 11/20/2020 89640 Anticoagulant MGMT F or Patient Taking Warfarin, Inc Review & Intr Completed 11/01/2020 76616 Complex Chronic Care MGMT Servic e Ea Addl 30 Min Completed 11/01/2020 63475 Complex Chronic Care Management SVC 1St 60 Min Completed 10/25/2020 56871 Anticoagulant MGMT F or Patient Taking Warfarin, Inc Review & Intr Completed Medical Devices Description No Information Available Encounters Type Date Location Provider Dx Diagnosis Office Visit 03/29/2021 9:30a Main Office [facility] I50 .32 Chronic diastolic (congestive) heart failure Z79.01 nursing home (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 of a 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 Office Visit 03/12/2021 2:00p Main Office OM[facility]on I11 .0 Hypertensive heart disease with heart failure Z79.01 supervisor intermediates (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 of a 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 Office Visit [...] atrial fibrillation I11.0 Hypertensive heart disease w [facility] heart failure Office Visit 11/01/2020 7:49a Main Office Paul Diggs MD I48.21 Permanent atrial fibrillation I11.0 Hypertensive heart disease w [facility] heart failure Assessments Date Code Description Provider 03/29/2021 I50.32 Chronic diastolic (congestive) h eart failure OMERO Duron 03/29/2021 Z79.01 nursing home (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 of antic oagulants OMERO Duron 03/13/2021 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 OMERO Duron 03/13/2021 I48.21 Permanent atrial fibrillation Ca OMERO Baker 03/13/2021 Z79.01 supervisor intermediates (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 of antic oagulants OMERO Duron 03/12/2021 I11.0 Hypertensive heart disease with heart failure OMERO Duron 03/12/2021 Z79.01 supervisor intermediates (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 of antic oagulants OMERO Duron 03/04/2021 I48.21 Permanent atrial fibrillation Familia Mccray PA-C 03/04/2021 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 Katie Darlene Sewell PA-C 03/04/2021 Z79.01 supervisor intermediates (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 of antic oagulants Katie Sewell, PA-C 02/27/2021 I48.21 Permanent atrial fibrillation Ca sosa Antonio, PA 02/27/2021 Z79.01 nursing home (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 of antic oagulants Sarina Antonio, PA 02/21/2021 I48.21 Permanent atrial fibrillation Ca sosa Antonio, PA 02/21/2021 I34.2 Nonrheumatic mitral (valve) sten osis Sarina Antonio, PA 02/21/2021 Z79.01 nursing home (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 of antic oagulants Sarina Antonio, PA 02/12/2021 I48.21 Permanent atrial fibrillation Familia Mccray, PA-C 02/12/2021 Z79.01 nursing home (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 of antic oagulants Katie Sewell, PA-C 02/06/2021 I48.21 Permanent atrial fibrillation Ca sosa Antonio, PA 02/06/2021 I11.0 Hypertensive heart disease with heart failure Sarina Antonio, PA 02/06/2021 I50.32 Chronic diastolic (congestive) h eart failure Sarina Antonio, PA 02/06/2021 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 Sarina Antonio, PA 02/06/2021 I34.2 Nonrheumatic mitral (valve) sten osis Sarina Antonio, PA 02/06/2021 R94.31 Abnormal electrocardiogram [ECG] [EKG] Sarina Antonio PA 02/06/2021 E66.8 Other obesity Sarina Orozco Cha, se PA 02/06/2021 Z71.3 Dietary counseling and surveilla nce Sarina Antonio, PA 02/05/2021 Z79.01 supervisor intermediates (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 of antic oagulants Katie Sewell, PA-C 01/28/2021 Z79.01 supervisor intermediates (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 of antic oagulants Katie Sewell, PA-C 01/28/2021 I48.21 Permanent atrial fibrillation Ka renny Sewell, PA-C 01/22/2021 I48.21 Permanent atrial fibrillation Francisco Javier Diggs MD 01/22/2021 E66.8 Other obesity Paul Diggs MD 01/21/2021 Z79.01 nursing home (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 of antic oagulants Katie E Symenow, PA-C 01/15/2021 Z79.01 supervisor intermediates (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 of antic oagulants Katie E Symenow, PA-C 01/07/2021 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 Paco, PA 01/07/2021 Z79.01 nursing home (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 of antic oagulants Sarina L. 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 Paco, PA 12/28/2020 I48.21 Permanent atrial fibrillation Ca ssandra L. Paco, PA 12/28/2020 Z79.01 supervisor intermediates (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 of antic oagulants Sarina L. 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 Katie E Symenow, PA-C 12/04/2020 Z79.01 nursing home (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 of antic oagulants Katie Sewell PA-C 11/21/2020 I48.21 Permanent atrial fibrillation Francisco Javier Diggs MD 11/21/2020 I11.0 Hypertensive heart disease with heart failure Paul Diggs MD 11/20/2020 I48.21 Permanent atrial fibrillation Familia Mccray PA-C 11/20/2020 Z79.01 nursing home (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 of antic melaniegulanbogdan Sewell PA-C 11/01/2020 I48.21 Permanent atrial fibrillation Francisco Javier Diggs MD 11/01/2020 I11.0 Hypertensive heart disease with heart failure Paul Diggs MD 10/25/2020 I48.21 Permanent atrial fibrillation Familia Mccray PA-C 10/25/2020 Z79.01 supervisor intermediates (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 of antic oagulanbogdan Sewell PA-C [...] an echocardiogram at the hospital * Z79.01 supervisor intermediates (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 of a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* Recommendations:* When it [...]
--- OUTSIDE RECORDS SUMMARY | 2021-04-26 19:30 | CCD | Continuity of Care Document ---
Author Author [facility] Address [address] [place] [address] Phone Care Team Providers Care Ladies Underwear Operator Name Role Phone Zunilda TRONCOSO PCP Chief Complaint and Reason for Visit Reason for Visit RECTAL BLEEDING Health Concerns Health Concerns may be documented in an alternate section. Allergies, Adverse Reactions, Alerts Allergen Type Severity Reaction Last Updated Verified Status MDX - Nka - No Known Allergies Allergy Unknown June 30, 2018 No Active Social History Assigned Sex Male Problems No problem information available. Medications Medication Status Dose Units Route Directions Qty Days Start Date End Date Instructions Digoxin (DIGOXIN0.25 MG) 0.25 MG TAB Activ e 0.25 MG PO Daily Docusate Sodium (ASMCTG683 MG) 100 MG CAPSULE Active 100 MG PO Twice Daily Folic Acid (FOLIC ACID1 MG) 1 MG TAB Activ e 1 MG PO Daily Furosemide* (FQQTQIZWDI62 MG) 40 MG TABLET Active 40 MG PO E very Other Day Furosemide* (WHADIDADEL99 MG) 40 MG TABLET Active 40 MG PO D aily Metoprolol Tartrate* (METOPROLOL TART50 MG) 50 MG TABL ET Active 50 MG PO Twice Daily Phenytoin Sodium Extended* (NRCCTIVDN659 MG) 100 MG CA PSULE Active 100 MG PO 3 Times Daily Potassium Chloride (K-NORM10 MEQ) 10 MEQ CER Active 10 MEQ PO Twice Daily Warfarin Sodium (WARFARIN SOD5 MG) 5 MG TABLET Active 5 MG PO Da [place] Immunizations No Immunization Information Available Medical Equipment No Medical Equipment Information available Procedures No procedure information available. Relevant Diagnostic Tests and/or Laboratory Data Laboratory Results Test Date/Time Result Interpretation Reference Range Result Comment Performing Site White Blood Count March 16 5:18am 25.8 4.0-10.0 [facility], 4 [facility] [address] Red Blood Count March 16, 2021 5:18a m 4.33 4.50-6.00 [facility], 4 [facility] [address] Hemoglobin March 16, 2021 5:18am 14.0 14.0-18.0 [facility], 4 [facility] [address] Hematocrit March 16, 2021 5:18am 40.6 42.0-54.0 [facility], 4 [facility] [address] Mean Corpuscular Volume March 162020 5:18am 93.8 80-96 [facility], 4 [facility] [address] Mean Corpuscular Hemoglobin Septembe r 2020 5:18am 32.3 27.0-31.0 [facility], 4 [facility] [address] Mean Corpuscular Hgb Concent Diff Se ptember 2020 5:18am 34.5 32.0-36.0 [facility], 4 [facility] [address] Red Cell Distribution Width Septembe r 2020 5:18am 13.5 10.0-14.5 [facility], 4 [facility] [address] Platelet Count March 16, 2021 5:18am 165 172-450 [facility], 4 [facility] [address] Mean Platelet Volume March 16, 2021 5:18am 10.2 9.0-13.0 [facility], 4 [facility] [address] Granulocytes % (Auto) February 5:18am 21.8 50-80.0 [facility], 4 [facility] [address] Immature Granulocytes % March 162020 5:18am 0.2 0.0-0.2 [facility], 4 [facility] [address] Lymphocytes % March 16, 2021 5:18am 73.9 25.0-50.0 [facility], 4 [facility] [address] Monocytes % March 16, 2021 5:18am 2.5 2.0-10.0 [facility], 4 [facility] [address] Eosinophils % March 16, 2021 5:18am 1.4 0-5.0 [facility], 4 [facility] [address] Basophils % March 16, 2021 5:18am 0.2 0.0-2.0 [facility], 4 [facility] [address] Granulocytes # March 16, 2021 5:18am 5.6 2.0-8.00 [facility], 4 [facility] [address] Immature Granulocytes # March 162020 5:18am 0.0 0.0-0.2 [facility], 4 [facility] 9[address]99 Lymphocytes # March 16, 2021 5:18am 19.1 1.0-5.0 [facility], 4 [facility] 478[address] Monocytes # March 16, 2021 5:18am 0.7 0.10-1.20 [facility], 4 [facility] [address] Eosinophils # March 16, 2021 5:18am 0.4 0.0-0.5 [facility], 4 [facility] 255[address] Basophils # March 16, 2021 5:18am 0.0 0.0-0.2 [facility], 4 [facility] [address] Neutrophils % (Manual) February 5:18am 25 50-80 [facility], 4 [facility] [address] Lymphocytes % (Manual) February 5:18am 69 25-50 [facility], 4 [facility] [address] Monocytes % (Manual) March 16, 2021 5:18am 2 2.0-10.0 [facility], 4 [facility] [address] Eosinophils % (Manual) February 5:18am 4 0-5 [facility], 4 [facility] [address] Basophils % (Manual) March 16, 2021 5:18am 0 0-2 [facility], [address] [place] [address] Atypical Lymphocytes % December 31 7:27am 8 [facility], [address] [place] [address] Differential Comment December 31, 2020 7:27a m . MANY SMUDGE CELLS NOTED [facility], [address] [place] [address] Platelet Estimate March 16 5:18am NORMAL NORMAL RBC MORPHOLOGY EXPECTED RESULTS:NORMAL= NORMOCHROMIC, NORMOCYTIC CELLSAbnormal Morphologic Findings > or = to 1+ are reported.Clinicopathologic correlation by the provider is required todetermine significance of finding. [facility], [address] [place] [address] Prothrombin Time March 16 5:18am 28.0 9.1-11.6 [facility], [address] [place] [address] INR International Normalized Ratio S eptemb 2020 5:18am 2.72 0.87-1.06 [facility], [address] [place] [address] Partial Thromboplastin Time - [facility] 2020 5:18am 53.7 21.2-27.3 [facility], [address] [place] [address] Urine Color March 16, 2021 6:40am DARK YELLOW [facility], [address] [place] [id number] Urine Appearance March 16 6:40am SLIGHTY CLOUDY [facility], 4 [facility] [address] Urine Glucose March 16, 2021 6:40am NEGATIVE NEGATIVE [facility], 4 [facility] [address] Urine Bilirubin March 16, 2021 6:40a m NEGATIVE NEGATIVE [facility], [address] [place] [id number] Urine Ketones March 16, 2021 6:40am NEGATIVE NEGATIVE [facility], [address] [place] [id number] Specific [place] March 16 6:40am 1.025 1.005-1.030 [facility], [address] [place] [address] Urine Blood March 16, 2021 6:40am 1+(SMALL) NEGATIVE [facility], 4 [facility] [address] Urine pH March 16, 2021 6:40am 5.5 5.0-9.0 [facility], 4 [facility] [address] Urine Protein March 16, 2021 6:40am 2+(100) NEGATIVE [facility], 4 [facility] [address] Urine Urobilinogen March 16 6:40am NORMAL(0.2-1) 0-1 [facility], 4 [facility] [address] Urine Nitrite March 16, 2021 6:40am NEGATIVE NEGATIVE [facility], 4 [facility] [address] Urine Leukocyte Esterase February 212020 6:40am NEGATIVE NEGATIVE [facility], 4 [facility] [address] Urine Microscopic RBC February 6:40am 3-5 0-3 [facility], [address] [place] [address] Urine Microscopic WBC February 6:40am 0-2 0-5 [facility], [address] [place] [address] Urine Bacteria March 16, 2021 6:40am 2+ NONE SEEN [facility], [address] [place] [address] Urine Mucus March 16, 2021 6:40am 2+ NEGATIVE [facility], [address] [place] [address] URINE CULTURE SENT TO REF LAB [facility], [address] [place] [address] Glucose Level March 16, 2021 5:18am 100 74-106 [facility], [address] [place] [address] Lactic Acid Level March 16 5:18am 0.8 0.4-2.0 [facility], [address] [place] [address] Blood Urea Nitrogen March 16, 2021 5:18am 17 7-18 [facility], [address] [place] [address] Creatinine March 16, 2021 5:18am 0.97 0.7-1.3 [facility], [address] [place] [address]452 Sodium Level March 16, 2021 5:18am 144 136-145 [facility], 4 [facility] [address] Potassium Level March 16, 2021 5:18a m 3.7 3.5-5.1 [facility], 4 [facility] [address] Chloride Level March 16, 2021 5:18am 105 98-107 [facility], 4 [facility] [address] Carbon Dioxide Level March 16, 2021 5:18am 29 21-32 [facility], 4 [facility] [address] Calcium Level March 16, 2021 5:18am 8.3 8.5-10.1 [facility], 4 [facility] [address] Anion Gap March 16, 2021 5:18am 10.0 5-12 [facility], 4 [facility] [address] Estimated GFR (MDRD) March 16, 2021 5:18am 76 GFR IS CALCULATED IN mL/min/1.73m2 NORMAL FUNCTION: >90MILDLY DECREASED: 60-89MILDY TO MODERATELY DECREASED: 45-59 MODERATELY TO SEVERELY DECREASED: 30-44SEVERELY DECREASED: 15-29RENAL FAILURE: <15 [facility], 4 [facility] [address] Aspartate Amino Transf (AST/SGOT) Se pt2020 5:18am 31 15-37 [facility], 4 [facility] [address] Alanine Aminotransferase (ALT/SGPT) March 16, 2021 5:18am 33 12-78 [facility], 4 [facility] [address] Alkaline Phosphatase March 16, 2021 5:18am 161 46-116 [facility], 4 [facility] [address] Total Bilirubin March 16, 2021 5:18a m 0.4 0.2-1.0 [facility], 4 [facility] [address] Total Protein March 16, 2021 5:18am 7.3 6.4-8.2 [facility], 4 [facility] [address] Albumin March 16, 2021 5:18am 3.7 3.4-5.0 [facility], 4 [facility] [address] Cholesterol Level December 31, 2020 7:27am 181 0-200 [facility], 4 [facility] [address] Triglycerides Level December 31, 2020 7:27am 111 0-150 [facility], [address] [place] [address]955 LDL Cholesterol, Calculated December 7:27am 113 0-100 [facility], [address] [place] [address]10 HDL Cholesterol December 31, 2020 7:27am 46 40-60 [facility], [address] [place] [address] Cholesterol/HDL Ratio December 31 7:27am 3.9 0.0-5.0 [facility], [address] [place] [address]29 Lipase March 16, 2021 5:18am 206 73-393 [facility], [address] [place], [place] [address] Thyroid Stimulating Hormone (TSH) Ju 2020 7:27am 1.929 0.360-3.740 [facility], [address] [place] [address] Free Thyroxine December 31, 2020 7:27am 0.8 0.76-1.46 [facility], [address] [place] [address] Digoxin Level March 16, 2021 5:18am 0.55 0.9-2.0 [facility], [address] [place] [address]84 Phenobarbital Level December 31, 2020 7:27am 31.4 15.0-40.0 [facility], [address] [place], [place] [address] Phenytoin (Dilantin) Level December 7:27am 9.6 10.0-20.0 [facility], [address] [place] [address]99 B-Type Natriuretic Peptide December 7:27am 1090 0-125 [facility], [address] [place], [place] [address] Coronavirus (COVID-19)(PCR) r 2020 8:46am NEGATIVE NEGATIVE Negative results should be treated as pr esumptive and, ifinconsistent with clinical signs and symptoms or necessaryfor patient management, should be tested with differentauthorized or cleared molecular tests.Negative results do not preclude SARS-CoV-2 infection andshould not be used as the sole basis for patient managementdecisions.This is a rapid molecular isothermal nucleic acidamplification technology (NAAT) in vitro diagnostic testutilizing a loop mediated isothermal amplification (LAMP)test with nicking endonuclease amplification reaction(NEAR) intended for the qualitative detection of nucleica rodrigo from the SARS-CoV-2 viral RNA in direct nasal,nasopharyngeal or throat swabs from individuals who aresuspected of COVID-19.Results are for the indentification of SARS-CoV-2 RNA. DiyCPXR-YqY-0 RNA is generally detectable in respiratorysamples during the actue phase of infection. [facility], 4 [facility] [address] Blood Type (LAB) March 16 5:18am O [facility], 4 [facility] [address] Rh Factor (LAB) March 16, 2021 5:18a m POSITIVE [facility], [address] [place] [address]658 Antibody Screen (LAB2) February 5:18am NEGATIVE [facility], 4 [facility] [address] Vitamin B12 Level December 31, 2020 7:27am [phone] Performed at: RN - [facility] [place] [id number] Director: Claire Hernandez MD, Phone: [phone] [facility] Vital Signs No vital signs result information available. Insurance Providers Guarantor SHAHEEN DAY Address [address] [place] [address] Contact Info. Home Phone: Payer Policy Id Coverage Id Subscriber's Name Subscriber Id Effective Date Expiration Date MEDICARE - [place] [id number] SHAHEEN DAY 2014 [employer] [id number] SHAHEEN DAY 2014 MEDICAID [id number] SHAHEEN DAY Encounters Encounter Location(s) Ar rival/Admit Date Discharge/Depart Date Provider(s) Departed Emergency [facility] March 16, 2021 4:30am March 16, 2021 1:24pm SUZAN BHAKTA Registered Clinical [facility] December 31, 2020 7:22ROSELIA Delong Functional Status No Functional Status information available Mental Status No Mental Status Information Available Assessments No Assessments Information Available Goals Goals may be documented in an alternate section.
--- OUTSIDE RECORDS SUMMARY | 2021-04-26 19:30 | CCD | Continuity of Care Document ---
Author Author Edson MORENO [place] Organization Unknown Address [address] [place] [address], [place] [address] Phone [phone] Care Team Providers Care Grain Mixer Name Role Phone Marcus Estevez MD AUTM [phone] Mario Monet MD AUTM [phone] Edgar Andrews MD AUTM [phone] Brayan, Mustapha Swift MD AUTM [phone] Problems Active Problems Provider Date Heart failure [...] Dueñas NP Onset: 05/26/2014 Chronic atrial fibrillation Nsiha Dueñas NP Onset: 05/30 Transplantation of heart valve RICKY Alexandra Onset: 03/03/2017 Dietary management surveillance Nilam Colon José, [employer] Onset: 03/03/2017 Long-term current use of anticoagulant [...] H/L Range Note Laboratory test finding 04/02/2021 [facility] [phone] NT-Pro BNP 3616 pg/mL High <125 BMP 04/02/2021 [facility] nter [phone] Glucose, Fasting 91 mg/dL Normal 70-100 Blood [...] mg/dL Normal 8.8-10.2 Laboratory test finding 04/02/2021 [facility] [phone] Magnesium Level 2.0 mg/dL Normal 1.8-2.4 CBC [...] Little GFR Left ESRD GFR <15 on MED SURG RN Procedures Date Code Description Status 03/29/2021 67277 Office/Outpatient Established Mo d MDM 30-39 Min Completed 03/13/2021 91972 Anticoagulant MGMT F or Patient Taking Warfarin, Inc Review & Intr Completed 03/12/2021 77003 Office/Outpatient Established Lo w MDM 20-29 Min Completed 03/04/2021 62383 Anticoagulant MGMT F or Patient Taking Warfarin, Inc Review & Intr Completed 02/27/2021 45215 Anticoagulant MGMT F or Patient Taking Warfarin, Inc Review & Intr Completed 02/21/2021 84252 Anticoagulant MGMT F or Patient Taking Warfarin, Inc Review & Intr Completed 02/12/2021 96069 Anticoagulant MGMT F or Patient Taking Warfarin, Inc Review & Intr Completed 02/06/2021 23832 Office/Outpatient Established Mo d MDM 30-39 Min Completed 02/06/2021 22840 ECG 12-Lead Completed 02/05/2021 03181 Anticoagulant MGMT F or Patient Taking Warfarin, Inc Review & Intr Completed 01/28/2021 87339 Anticoagulant MGMT F or Patient Taking Warfarin, Inc Review & Intr Completed 01/22/2021 45792 Chronic Care MGMT 20 Mins Clinical Staff Time Per Calendar Month Completed 01/21/2021 60689 Anticoagulant MGMT F or Patient Taking Warfarin, Inc Review & Intr Completed 01/15/2021 04846 Anticoagulant MGMT F or Patient Taking Warfarin, Inc Review & Intr Completed 01/07/2021 89324 Anticoagulant MGMT F or Patient Taking Warfarin, Inc Review & Intr Completed 12/31/2020 29869 Anticoagulant MGMT F or Patient Taking Warfarin, Inc Review & Intr Completed 12/28/2020 89158 Anticoagulant MGMT F or Patient Taking Warfarin, Inc Review & Intr Completed 12/25/2020 73742 Echocardiogram 2-D Doppler Color Completed 12/20/2020 37040 Chronic Care MGMT 20 Mins Clinical Staff Time Per Calendar Month Completed 12/20/2020 58037 Chronic Care Management Services Ea Addl 20 Min Completed 12/11/2020 05102 Anticoagulant MGMT F or Patient Taking Warfarin, Inc Review & Intr Completed 12/04/2020 73174 Anticoagulant MGMT F or Patient Taking Warfarin, Inc Review & Intr Completed 11/21/2020 14109 Chronic Care MGMT 20 Mins Clinical Staff Time Per Calendar Month Completed 11/21/2020 39869 Chronic Care Management Services Ea Addl 20 Min Completed 11/20/2020 17744 Anticoagulant MGMT F or Patient Taking Warfarin, Inc Review & Intr Completed 11/01/2020 46557 Complex Chronic Care MGMT Servic e Ea Addl 30 Min Completed 11/01/2020 79242 Complex Chronic Care Management SVC 1St 60 Min Completed 10/25/2020 94579 Anticoagulant MGMT F or Patient Taking Warfarin, Inc Review & Intr Completed Medical Devices Description No Information Available Encounters Type Date Location Provider Dx Diagnosis Office Visit 03/29/2021 9:30a Main Office [facility] I50 .32 Chronic diastolic (congestive) heart failure Z79.01 retirement (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 of a 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 Office Visit 03/12/2021 2:00p Main Office [facility] I11 .0 Hypertensive heart disease with heart failure Z79.01 retirement (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 of a 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 Office Visit [...] atrial fibrillation I11.0 Hypertensive heart disease w [facility] heart failure Office Visit 11/01/2020 7:49a Main Office Paul Diggs MD I48.21 Permanent atrial fibrillation I11.0 Hypertensive heart disease w [facility] heart failure Assessments Date Code Description Provider 03/29/2021 I50.32 Chronic diastolic (congestive) h eart failure Sarina Almodovar. Paco, PA 03/29/2021 Z79.01 retirement (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 of antic oagulants Sarina L. 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 Paco, PA 03/13/2021 I48.21 Permanent atrial fibrillation Ca ssandra L. Paco, PA 03/13/2021 Z79.01 retirement (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 of antic oagulants Sarina L. Paco, PA 03/12/2021 I11.0 Hypertensive heart disease with heart failure Sarina L. Paco, PA 03/12/2021 Z79.01 [employer] (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 of antic oagulants Sarina L. 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 Paco, PA 02/27/2021 Z79.01 retirement (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 of antic oagulants Sarina L. Paco, PA 02/21/2021 I48.21 Permanent atrial fibrillation Ca ssadanialra L. Paco, PA 02/21/2021 I34.2 Nonrheumatic mitral (valve) sten osis Sarina L. Paco, PA 02/21/2021 Z79.01 retirement (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 of antic oagulants Sarina L. 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 Sarina Moreno PA 02/06/2021 I34.2 Nonrheumatic mitral (valve) sten osis Sarina Moreno PA 02/06/2021 R94.31 Abnormal electrocardiogram [ECG] [EKG] [facility] Duron 02/06/2021 E66.8 Other obesity OMERO Murphy Cha, se 02/06/2021 Z71.3 Dietary counseling and surveilla nce Sarina Moreno PA 02/05/2021 Z79.01 retirement (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 of antic oagulants Katie Sewell, PA-C 01/28/2021 Z79.01 [employer] (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 of antic oagulants Katie Sewell, PA-C 01/28/2021 I48.21 Permanent atrial fibrillation Familia Mccray, PA-C 01/22/2021 I48.21 Permanent atrial fibrillation Francisco Javier Diggs MD 01/22/2021 E66.8 Other obesity Paul Diggs MD 01/21/2021 Z79.01 retirement (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 of antic oagulants Katie Colon Symsalow, PA-C 01/15/2021 Z79.01 retirement (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 of antic oagulants Katie Colon Symlupe, PA-C 01/07/2021 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 Katie Colon Symenow, PA-C 12/04/2020 Z79.01 [employer] (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 of antic oagulants Katie Colon Symenow, PA-C 11/21/2020 I48.21 Permanent atrial fibrillation Francisco Javier Diggs MD 11/21/2020 I11.0 Hypertensive heart disease with heart failure Paul Diggs MD 11/20/2020 I48.21 Permanent atrial fibrillation Ka te E Symsalow, PA-C 11/20/2020 Z79.01 retirement (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 of antic oagulants Katie Sewell, PA-C 11/01/2020 I48.21 Permanent atrial fibrillation Francisco Javier Diggs MD 11/01/2020 I11.0 Hypertensive heart disease with heart failure Paul Diggs MD 10/25/2020 I48.21 Permanent atrial fibrillation Ka te E Symlupe, PA-C 10/25/2020 Z79.01 retirement (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 of antic oagulants Katie Sewell PA-C Plan of Treatment Future Appointment(s):* 05/10/2021 8:00 am - [facility] at Main Office * 09/10/2021 2:30 pm - [facility] at Main Office 03/29/2021 - [facility]* I50.32 Chronic diastolic (congestive) heart failure* New Xrays:* XR Chest 2 Views, Ordered: [...] an echocardiogram at the hospital * Z79.01 [employer] (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 of a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* Recommendations:* When it [...]
--- OUTSIDE RECORDS SUMMARY | 2021-04-26 19:31 | CCD | Summary of Care ---
Author Author [facility] Organization [facility] Address Unknown Phone Unavailable Care Team Providers Care Dianetic Counselor Name Role Phone PCP Unavailable Reason for Visit * Reason Comments Encounter Details Care Team Description Date Type Department Chetna Estrella MD [address] [place] [address] [address] [place] [address] [place] [address] [place] [address] [place] [address] [place] [id number] Benign essential HTN (Primary Dx) 03/16/2021 [facility] AC1 - Encounter SURGICAL/ORTHOPEDIC AND 03/20/2021 [facility] [address] [place] [address] [id number] Allergies No Known Active Allergiesdocumented as of this encounter (statuses as of 03/20/2021) Medications End Date Status Medication Sig Dispensed Refills Start Date Active amLODIPine (NORVASC) 2.5 Take 2.5 mg 0 mg tablet by mouth 1 (one) time each day. Active digoxin (LANOXIN) 250 mcg Take by 0 (0.25 mg) tablet mouth. Active docusate sodium (COLACE) Take 100 mg 0 100 mg capsule by mouth 2 (two) times a day. Active metoprolol tartrate Take 50 mg by 0 (LOPRESSOR) 50 mg tablet mouth 2 (two) times a day. Active multivitamin (THERAGRAN) Take 1 tablet 0 tablet by mouth 1 (one) time each day. Active PHENobarbitaL (LUMINAL) Take 64.8 mg 0 32.4 mg tablet by mouth 2 (two) times a day. Active phenytoin (DILANTIN) 100 Take 100 mg 0 mg ER capsule by mouth 3 (three) times a day. Active potassium chloride Take 20 mEq 0 (KLOR-CON M20) 20 mEq CR by mouth 1 tablet (one) time each day. Do not crush or chew. Active ascorbic acid (VITAMIN C) Take 1,000 mg 0 1,000 mg tablet by mouth 1 (one) time each day. 03/20/2021 Discontinued (Stop Taking at Discharge) aspirin 81 mg EC tablet Take 81 mg by 0 mouth 1 (one) time each day. 03/20/2021 Discontinued (Stop Taking at Discharge) furosemide (LASIX) 40 mg Take 40 mg by 0 tablet mouth 1 (one) time each day. 03/20/2021 Discontinued (Stop Taking at Discharge) furosemide (LASIX) 20 mg Take 20 mg by 0 tablet mouth 1 (one) time each day before lunch. AFTERNOON 03/20/2021 Discontinued (Stop Taking at Discharge) spironolactone Take 12.5 mg 0 (ALDACTONE) 25 mg tablet by mouth 1 (one) time each day. 03/20/2021 Discontinued (Stop Taking at Discharge) warfarin (COUMADIN) 6 mg Take 6 mg by 0 tablet mouth 1 (one) time each day. 5 days a week 03/20/2021 Discontinued (Stop Taking at Discharge) warfarin (COUMADIN) 1 mg Take 7 mg by 0 tablet mouth 1 (one) time each day. 2 days a week documented as of this encounter (statuses as of 03/20/2021) Active Problems Problem Noted Date Adenocarcinoma, colon 03/20/2021 Colonic mass 03/19/2021 Permanent atrial fibrillation 03/17/2021 Seizure 03/17/2021 Essential hypertension 03/17/2021 History of heart valve replacement with porcine valve 03/17/2021 Lymphoproliferative disorder 03/16/2021 Chronic anticoagulation Rheumatic fever Benign essential HTN documented as of this encounter (statuses as of 03/20/2021) Resolved Problems Problem Noted Date Resolved Date H/O heart valve replacement with bioprosthetic valve 03/1703/17/2021 GI bleed 03/16/2021 03/20/2021 Melena 03/16/2021 03/20/2021 BRBPR (bright red blood per rectum) 03/16/2021 documented as of this encounter (statuses as of 03/20/2021) Social History Date Tobacco Use Types Packs/Day Years Used Never Smoker Smokeless Tobacco: Never Used Comments Alcohol Use Standard Drinks/Week Never 0 (1 standard drink = 0.6 o z pure alcohol) Alcohol Habits Answer Date Recorded How often do you have a drink containing alcohol? Never 03/17/2021 How many drinks containing alcohol do you have on No t asked a typical day when you are drinking? How often do you have six or more drinks on one Not asked occasion? Comment: Not asked Sex Assigned at Date Recorded Not on file documented as of this encounter Last Filed Vital Signs Reading Time Taken Comments Vital Sign 144/60 03/20/2021 8:11 AM EDT Blood Pressure 85 03/20/2021 8:11 AM EDT Pulse 36.3 C (97.3 F) 03/20/2021 8:11 AM EDT Temperature 18 03/20/2021 8:11 AM EDT Respiratory Rate 99% 03/20/2021 12:00 AM EDT Oxygen Saturation - - Inhaled Oxygen Concentration 83.9 kg (185 lb) 03/16/2021 8:00 PM EDT Weight 162.5 cm (5' 3.98") 03/16/2021 8:00 PM EDT Height 31.78 03/16/2021 8:00 PM EDT Body Mass Index documented in this encounter Discharge Instructions * Appointments* Maki Roberson - 03/20/2021 12:01 PM EDT Follow up appt. With Dr. Estevez ThursdayApril 03 at 10:[address] [place], [place] [id number] documented in this encounter Progress Notes * Jad Avelar - 03/20/2021 12:09 PM EDT Discharge Planning Progress Note Patient Name: Shaheen Day Today's Date: 03/20/2021 Assessment: Called Camille joshi [facility] Arranged for transport home to [place], [place] for [address] Called brother, Kevin, Made him aware Discharge Planning: Living Arrangements: Alone Support Systems: Family members Assistance Needed: None Type of Residence: Private residence Home Care Services: No Can we notify your caregiver or family member of your admission?: Yes Caregiver: Kevin Day Caregiver Information: [phone] * Jad Avelar - 03/20/2021 11:49 AM EDT Discharge Planning Progress Note Patient Name: Shaheen Day Today's Date: 03/20/2021 Assessment: Patient discharged called brother states They have no transport, states they rely on medicaid cab Called [facility], patient not eligible has vna Called [facility] [phone] for transport Discharge Planning: Living Arrangements: Alone Support Systems: Family members Assistance Needed: None Type of Residence: Private residence Home Care Services: No Can we notify your caregiver or family member of your admission?: Yes Caregiver: Kevin Day Caregiver Information: [phone] * Rhett Church FNP - 03/19/2021 4:19 PM EDT PROGRESS NOTE SUBJECTIVE HPI Patient is 70-year-old male transferred from [facility] on 03/17/2021 with b lack stool and bright red blood per rectum. Patient is on chronic anticoagulati on for atrial fibrillation. Patient examined bedside, he underwent colonoscopy, appears lethargic but answer s questions appropriately. Denies any black or bloody stool today, vital signs lab work in viewed, case discussed with primary nurse. Review of Systems Limited review of system, see HPI OBJECTIVE Physical Exam General. Patient, lethargic post procedure. Oriented x3 Skin. Pale Neck. Supple no JVD. Lungs. Clear bilaterally respirations easy at rest. Heart. Irregular, S1 S2 no murmurs gallops or rubs Abdomen. Soft nontender nondistended, bowel sounds present x4 quadrants. Extremities. No edema, peripheral pulses present. Neurologic. No focal deficit on examination, cranial nerves 2-12 grossly intact LAST RECORDED VITALS Temp: [35.9 C (96.6 F)-37 C (98.6 F)] 37 C (98.6 F) Heart Rate: [72-79] 74 Resp: [14-18] 14 BP: (114-161)/(53-81) 151/81 LABS Recent Results (from the past 24 hour(s)) Digoxin level Collection Time: 03/19/21 4:14 AM Result Value Ref Range Digoxin 0.80 0.80 - 2.00 ng/ml Phenytoin level, total Collection Time: 03/19/21 4:14 AM Result Value Ref Range Phenytoin 8.8 (L) 10.0 - 20.0 ug/ml Phenobarbital level Collection Time: 03/19/21 4:14 AM Result Value Ref Range Phenobarbital 30.3 15.0 - 40.0 ug/ml PROBLEM LIST Patient Active Problem List Diagnosis GI bleed Melena BRBPR (bright red blood per rectum) Lymphoproliferative disorder (CMS/HCC) Permanent atrial fibrillation (CMS/HCC) Seizure (CMS/HCC) Essential hypertension History of heart valve replacement with porcine valve Chronic anticoagulation Rheumatic fever Benign essential HTN Colonic mass ASSESSMENT AND PLAN Bright red blood per rectum Large 5 cm mass rectosigmoid colon Status post EGD 03/18/2021 without bleeding source identified. Colonoscopy 03/19/2021 revealed likely malignant tumor in the rectosigmoid colon , mass partially circumferential involving 1/3 of the lumen circumference measur ed at 5 cm in length. No bleeding present biopsies obtained. Pathology results pending Will need referral to colorectal surgeon for further evaluation/treatment CT abdomen pending Obtain oncology eval H&H is stable 12.8 and 38.7 Lymphoproliferative disorder Elevated WBCs, lymphocytosis. Patient follows with Hematology in [place] but cannot recall the name of the provider. Permanent atrial fibrillation on chronic anticoagulation bioprosthetic aortic valve Heart rate controlled with metoprolol. Chronically anticoagulated with warfarin , on hold due to bright red blood per rectum. Patient received vitamin K 10 mg IV x1 on admission. Last INR 1.3. Hypertension benign essential Continue amlodipine 2.5 mg daily and metoprolol 50 mg daily. Diuretics on hold due to do GI bleed. Seizure disorder Continue phenobarbital and Dilantin. Seizure precautions. Deep vein thrombosis prophylaxis SCDs, no chemoprophylaxis due to GI bleed. Spoke to patient's brother Kevin updated on patient's condition and discharge pl an Case discussed with RHETT Montague FNP 03/19/21 Associated attestation - Angle, Julien Velazquez MD - 03/19/2021 7:17 PM EDT Patient has been seen and case reviewed with the WORK CAR OPERATOR/PA. Agree with physical exa m, assessment and plan. * Coby Ibarra, RD CDN - 03/19/2021 1:23 PM EDT Adult Nutrition Assessment Name: Shaheen Day Date: 1950 Date of Visit: 03/19/21 Date of Admission: 03/16/2021 Reason for Assessment: day 4 inadequate nutrition (NPO/clear liquids) Nutrition Plan: monitor for results of colonoscopy and diet advancement Interview unable to be completed, pt off unit in Endo Nutritional Orders No Known Allergies Dietary Orders (From admission, onward) Start Ordered 03/19/21 0001 Adult NPO diet NPO except: Sips with meds Diet effective midnig ht Question: NPO except: Answer: Sips with meds 03/18/21 1117 Nutrition Support IV fluids: lactated ringers at 100ml/hr Assessment Food/Nutrition History Unable to obtain Anthropometrics Measurements Height: 1.625 m (5' 3.98") Admit Weight: 83.9 kg (185 lb) Most Current Weight: 83.9 kg (185 lb) unknown method 03/16 Body mass index is 31.78 kg/m. BMI Indicates: obese IBW: 120 lb +/- 10% %IBW: 154% ABW: 136.3 lb (61.9 kg) Frame Size: unable to assess, assume large Weight history UBW: unable to obtain Weight Changes: Unable to obtain Biochemical Data, tests and procedures Lab Results Component Value Date GLUCOSE 84 03/18/2021 CALCIUM 8.4 (L) 03/18/2021 NA 138 03/18/2021 K 4.1 03/18/2021 CO2 24.8 03/18/2021 CL 110.0 (H) 03/18/2021 BUN 12 03/18/2021 CREATININE 0.77 03/18/2021 Lab Results Component Value Date ALBUMIN 2.8 (L) 03/17/2021 Tests/Procedures: 03/18 EGD 03/19 colonoscopy Client History Problem List Items Addressed This Visit Circulatory Benign essential HTN - Primary Relevant Medications amLODIPine (NORVASC) 2.5 mg tablet furosemide (LASIX) 40 mg tablet furosemide (LASIX) 20 mg tablet metoprolol tartrate (LOPRESSOR) 50 mg tablet spironolactone (ALDACTONE) 25 mg tablet Other Relevant Orders ECG 12 lead (Completed) Past Medical History: Diagnosis Date Benign essential HTN Chronic anticoagulation Permanent atrial fibrillation (CMS/HCC) Prostate CA (CMS/HCC) Rheumatic fever Seizure (CMS/HCC) Social History/Personal Data: from home Estimated Needs Calories per day: 2969-4350 kcal/day (25 - 30 kcal/kg) Protein per day: 62-74 g/day (1 - 1.2 g/kg) Fluid per day: 9887-2775 ml/day (25 - 30 ml/kg) Comments: needs based on adjusted body weight 61.9kg and assessed for obesity Nutrition Focused Physical Findings Overall appearance: unable to assess Body language: unable to assess Nerves and cognition: WDL Head and eyes: WDL Cardiovascular-pulmonary system: , room air Extremities, muscles and bones: WDL Digestive system: BM 03/19 colon prep Skin: intact Visit Vitals BP 151/79 Pulse 74 Temp 36.7 C (98.1 F) (Skin) Resp 16 Current oral intake: none, NPO Diagnosis Nutrition Diagnosis: Inadequate protein/energy intake related to GI bleeding as evidenced by NPO or clear liquid diet since admission. Interventions Nutrition Prescription Meals and Snacks: advance back to clear liquids as tolerated Enteral nutrition: N/A Parenteral nutrition: N/A Supplements Medical food supplements: monitor for need Vitamin and mineral supplements: MVI, Vit C on hold for endo Bioactive substance management: N/A Feeding Assistance: N/A Nutrition-related medication management: Protonix on hold for endo Nutrition Education/Counseling Nutrition Education: N/A Coordination of Care N/A Monitoring and Evaluating Nutrition Monitoring and Goals Food/Nutrition-Related History Outcomes: nutrition started within 2 days Anthropometric Measurement Outcomes: no unplanned weight changes Biochemical Data, Medical Tests, and Procedure Outcomes: N/A Nutrition-Focused Physical Finding Outcomes: skin intact Follow-up Level: B * Martha Mayberry, PT - 03/19/2021 9:39 AM EDT Physical Therapy Initial Evaluation 03/19/21 0939 Treatment Type Treatment Type Initial Evaluation PT Last Visit PT Received On 03/19/21 Precautions and Positioning Infection Prevention Standard Precautions Medical Precautions IV Home Living Type of Home House Lives With Alone Home Adaptive Equipment Cane Home Layout Two level;Able to live on main level with bedroom/bathroom Alternate Level Stairs-Rails Both Alternate Level Stairs-Number of Steps 12 Home Access Stairs to enter without rails Entrance Stairs-Rails None Entrance Stairs-Number of Steps 2 Bathroom Shower/Tub Tub/shower unit Bathroom Toilet Standard Subjective Subjective Patient reports his brother lives near by and drives him when needed. Cognition Overall Cognitive Status WFL Arousal/Alertness Appropriate responses to stimuli Orientation Level Oriented X4 Following Commands Follows all commands and directions without difficulty Prior Function Level of Blanco Independent with ADLs;Independent with functional transfer s;Independent with homemaking with ambulation;Independent with ambulation Pain Assessment Pain Assessment No/denies pain Strength RLE R Hip Flexion 4/5 R Knee Extension 5/5 R Ankle Dorsiflexion 5/5 Strength LLE L Hip Flexion 4/5 L Knee Extension 5/5 L Ankle Dorsiflexion 5/5 Static Sitting Balance Static Sitting-Level of Assistance Independent Static Standing Balance Static Standing-Level of Assistance Independent Ambulation 1 Device 1 No device Assistance 1 Independent Pattern 1 Reciprocal Comments/Distance (ft) 1 200 feet Stairs Rails 1 Bilateral Assistance 1 Modified Independent Stairs Pattern Reciprical;Step to (reciprical up, step to down) Comment/Number of Steps 1 4 Stairs 2 Rails 2 None (Comment) Device 2 No device Assistance 2 Independent Stairs Pattern 2 Reciprical;Step too (reciprical up, step to down) Comment/Number of Steps 2 4 Bed Mobility 1 Bed Mobility From 1 Supine Bed Mobility Type 1 To and from Bed Mobility to 1 Short sit Level of Assistance 1 Independent Transfer 1 Technique 1 Sit to stand Transfer Level of Assistance 1 Independent Safety Check Safety Check Call nowak in reach;Tray table PT Assessment PT Assessment Initial evaluation completed this date. Patient sent from [facility] with bright red blood in his stool. Currently patient is awaiting colon oscopy, but he is functioning at an independent mobility level. Safe for home d ischarge from PT standpoint. Further restorative PT not indicated at this time. Prognosis Good Evaluation/Treatment Tolerance Patient tolerated treatment well Plan of care PT Plan No skilled PT No Skilled PT At baseline function PT Current Recommendations ambulate ad lily PT Discharge Recommendations Home independent Observation Observation Resting in bed upon approach. * Deanne Palencia, OT - 03/19/2021 9:24 AM EDT 03/19/21923 Treatment Type Treatment Type Initial/Discharge OT Last Visit OT Received On 03/19/21 Precautions and Positioning Infection Prevention Standard Precautions Medical Precautions IV Home Living Type of Home House Lives With Alone Home Adaptive Equipment Cane Home Layout Two level;Able to live on main level with bedroom/bathroom Home Access Stairs to enter without rails Entrance Stairs-Rails None Entrance Stairs-Number of Steps 2 Bathroom Shower/Tub Tub/shower unit Bathroom Toilet Standard Prior Function Level of Blanco Independent with ADLs;Independent with functional transfer s;Independent with homemaking with ambulation;Independent with ambulation Cognition Overall Cognitive Status WFL Arousal/Alertness Appropriate responses to stimuli Safety Judgment Good awareness of safety precautions Pain Assessment Pain Assessment (REPORTS "BURNING STOMACH") RUE Assessment RUE Assessment WFL RUE Strength RUE Overall Strength Within Functional Limits - able to perform ADL tasks with s trength LUE Assessment LUE Assessment WFL LUE Strength LUE Overall Strength Within Functional Limits - able to perform ADL tasks with s [facility] Vision - Basic Assessment Current Vision No visual deficits Balance Sitting - Static Good Sitting - Dynamic Good Standing - Static Good Standing - Dynamic Good Bed Mobility 1 Bed Mobility Yes Bed Mobility From 1 Supine Bed Mobility Type 1 To and from Bed Mobility to 1 Short sit Level of Assistance 1 Independent Functional Standing Tolerance Functional Standing Tolerance Comments STS AND FXL MOBILITY IND W/O DEVICE Grooming Grooming Level of Assistance Independent UE Bathing UE Bathing Level of Assistance Independent LE Bathing LE Bathing Level of Assistance Independent UE Dressing UE Dressing Level of Assistance Independent LE Dressing LE Clothing Level of Assistance Independent Toileting Toileting Level of Assistance Independent Activity Tolerance Evaluation/Treatment Tolerance Patient tolerated treatment well Medical Staff Made Aware Yes Safety Check Safety Check Call nowak in reach;Side rails x2;Tray table OT Assessment OT Assessment PT ADMITTED WITH GI BLEED. PT DEMONSTRATES INDEPENDENCE FOR BASIC ADLS,TRANSFERS AND FXL MOBILITY. SKILLED OT NOT INDICATED AT THIS TIME. REC D/C TO HOME WHEN MEDICALLY STABLE Prognosis Good Barriers to Discharge None Plan of Care OT Plan No skilled OT No Skilled OT No acute OT goals identified OT Discharge Recommendations Home independent * Alyce Holm - 03/18/2021 3:58 PM EDT Discharge Planning Progress Note Patient Name: Shaheen Day Today's Date: 03/18/2021 Assessment: Information from previous CM note reviewed and in agreement. Alyce Holm Discharge Planning: Living Arrangements: Alone Support Systems: Family members Assistance Needed: None Type of Residence: Private residence Home Care Services: No Can we notify your caregiver or family member of your admission?: Yes Caregiver: Kevin aDy Caregiver Information: [phone] * Pina Cerda PT - 03/18/2021 3:36 PM EDT Physical Therapy Cancel Note 03/18/21 1535 Treatment Type Treatment Type Initial Evaluation PT Assessment PT Assessment Hold PT today. Pt off floor in ENDO. * Dinah Colindres NP - 03/18/2021 12:38 PM EDT Latasha Sandhu is a 70-year-old male transferred from [facility] 03/17/2021 with bl ack stool and bright red blood per rectum. He is on chronic anticoagulation for atrial fibr revealed reflux esophagitis without illation. Status post EGD 02/21 revealed reflux esophagitis without bleeding source identified. Colonosc opy planned for 03/19/2021. No new events overnight. Discussed with bedside nu luz marina. Objective Physical Exam Vitals and nursing note reviewed. Constitutional: General: He is not in acute distress. Appearance: Normal appearance. He is obese. He is not ill-appearing, toxic-ap pearing or diaphoretic. HENT: Head: Normocephalic and atraumatic. Eyes: General: No scleral icterus. Extraocular Movements: Extraocular movements intact. Cardiovascular: Rate and Rhythm: Normal rate. Rhythm irregular. Pulses: Normal pulses. Heart sounds: Normal heart sounds. No murmur heard. No friction rub. No gallop. Pulmonary: Effort: Pulmonary effort is normal. No respiratory distress. Breath sounds: No wheezing, rhonchi or rales. Abdominal: General: Bowel sounds are normal. There is no distension. Palpations: Abdomen is soft. Tenderness: There is no abdominal tenderness. Musculoskeletal: General: No swelling or tenderness. Normal range of motion. Cervical back: Neck supple. Skin: General: Skin is warm and dry. Capillary Refill: Capillary refill takes less than 2 seconds. Coloration: Skin is not jaundiced or pale. Findings: No bruising, erythema, lesion or rash. Neurological: General: No focal deficit present. Mental Status: He is alert and oriented to person, place, and time. Mental st atus is at baseline. Psychiatric: Mood and Affect: Mood normal. Behavior: Behavior normal. Telemetry: Atrial fibrillation, controlled rate Last Recorded Vitals Blood pressure 155/78, pulse (!) 90, temperature 36.5 C (97.7 F), temper ature source Temporal, resp. rate 17, height 1.625 m (5' 3.98"), weight 83.9 kg (185 lb), SpO2 93 %. Relevant Results I have reviewed the available lab and diagnostic results as appropriate. Assessment/Plan Principal Problem: GI bleed Active Problems: Melena BRBPR (bright red blood per rectum) Lymphoproliferative disorder (CMS/HCC) Permanent atrial fibrillation (CMS/HCC) Seizure (CMS/HCC) Essential hypertension History of heart valve replacement with porcine valve Chronic anticoagulation GI bleed/melena/bright red blood per rectum: Patient transferred from [facility] with 2 days of black stool followed by bright red blood in the stool. Sta tus post EGD 03/18/2021 without bleeding source identified. Colonoscopy planned for 03/19/2021. PPI per GI. H&H stable. Lymphoproliferative disorder: Elevated white blood cell count, lymphocytosis. Evaluated by hematology who noted a chronic lymphoproliferative disorder and rec ommended outpatient follow-up with his power operator in [place]. Permanent atrial fibrillation/chronic anticoagulation: Rate control with metopr olol. Chronically anticoagulated with warfarin. He received vitamin K 10 mg IV x1 on admission. INR is 1.3. Porcine aortic valve replacement: Bioprosthetic. History of manic heart diseas e. Essential hypertension: Blood pressure compensated on amlodipine 2.5 mg and met oprolol 50 mg b.i.d.. Diuretic on hold due to GI bleeding. Seizure disorder: No current seizure activity. Continue phenobarbital and Dila ntin. Deep vein thrombosis prophylaxis: No chemical prophylaxis given GI bleeding, SC Ds PT/OT: Evaluation pending Advanced directive: Full code D/w Dr Barbour Associated attestation - Julien Barbour MD - 03/19/2021 7:17 PM EDT Patient has been seen and case reviewed with the WORK CAR OPERATOR/PA. Agree with physical exzunilda villegas, assessment and plan. * Deanne Palencia OT - 03/18/2021 11:08 AM EDT 03/18/21 1108 Treatment Type Treatment Type Initial Evaluation General Missed Treatment Reason Unavailable (Comment) (PT OFF THE FLOOR FOR ENDOSCOPY) * Jaye Wang - 03/18/2021 8:48 AM EDT Discharge Planning Progress Note Patient Name: Shaheen Day Today's Date: 03/18/2021 Assessment: Met with patient at bedside to discuss home life and dc plan, dc barry nning guide issued. Patient does not have a designated HCP. Caregiver declined. Correct demographics updated in [facility]. Patient resides at home alone and reports to being independent with his ADLs. Omero rubin's brother Kevin ([phone]) transport patient when needed. Patient stat es no DME at home. No church secretary and no home oxygen. Patient does not receive dialysis treatment. PCP is Dr. Marcus Estevez and Pharmacy is [facility] in [place], [place]. Patient does have MCR and [facility] for insurance. [facility] reviewed with patient, [facility] understanding. PT/OT pending. Discharge plan pending therapy recommendation s. MCR # [id number] and [facility] # [id number]. Discharge Planning: Living Arrangements: Alone Support Systems: Family members Assistance Needed: None Type of Residence: Private residence Home Care Services: No Can we notify your caregiver or family member of your admission?: Yes Caregiver: Kevin Day Caregiver Information: [phone] * Ila Maloney NP - 03/17/2021 10:57 AM EDT Latasha Sandhu is a 70-year-old male transferred to our facility for the purpose of gas troenterology consultation secondary to reports of black tarry stools x 2 days t hat progressed to bright red blood. He is on chronic anticoagulation for atrial fibrillation. He also has a history of blood clot removal from heart and a cardi ac valve replacement. Patient reports that it is a pig valve but is unsure as to which valve was replaced. [employer] is unable to find this information throughout any of his transfer records or our electronic medical records. Patient was given vitamin K 10mg IV last evening and his warfarin is being held in anticipation of GI procedure. GI consult pending. He remains NPO. Patient den ies any complaints at the time of my assessment and is resting in bed comfortabl y. Patient does report continued black tarry stools. Objective Physical Exam Vitals reviewed. Constitutional: General: He is not in acute distress. Appearance: Normal appearance. He is normal weight. He is not ill-appearing. HENT: Mouth/Throat: Mouth: Mucous membranes are moist. Eyes: Pupils: Pupils are equal, round, and reactive to light. Cardiovascular: Rate and Rhythm: Normal rate. Rhythm irregular. Pulses: Normal pulses. Heart sounds: Murmur heard. Pulmonary: Effort: Pulmonary effort is normal. Breath sounds: Normal breath sounds. No wheezing or rales. Abdominal: General: Bowel sounds are normal. There is no distension. Palpations: Abdomen is soft. Tenderness: There is no abdominal tenderness. There is no guarding. Musculoskeletal: General: Normal range of motion. Right lower leg: No edema. Left lower leg: No edema. Skin: General: Skin is warm and dry. Capillary Refill: Capillary refill takes less than 2 seconds. Neurological: General: No focal deficit present. Mental Status: He is alert and oriented to person, place, and time. Mental st atus is at baseline. Last Recorded Vitals Blood pressure 158/79, pulse 67, temperature 36.3 C (97.3 F), temperatur e source Temporal, resp. rate 16, height 1.625 m (5' 3.98"), weight 83.9 kg (185 lb), SpO2 92 %. Relevant Results I have reviewed the available lab and diagnostic results as appropriate. Assessment/Plan Principal Problem: GI bleed Active Problems: Melena BRBPR (bright red blood per rectum) Leucocytosis Atrial fibrillation (CMS/HCC) Seizure (CMS/HCC) Hypertension History of heart valve replacement with porcine valve Gastrointestinal bleed in a patient on Coumadin. - Patient continues to report black tarry stool - Clear liquid diet. No Reds. NPO at midnight - Protonix gtt - GI consulted. They plan to take patient for upper endoscopy tomorrow with Dr. Cota - INR 2.1 after 10mg IV Vitamin K administration. Repeat INR at 1400 today. May need additional. FFP can also be given in AM prior to procedure. - H/H slowly declining but is hemodynamically stable. H/H 38.5/12.8. Continue H& H every 6 hours and will transfuse as needed. Leukocytosis. Lymphocytosis. - Await Hematology/Oncology Consult - WBC down to 21.42 today. Previously 25.8. Afebrile. Denies chills, fever, or a bdominal pain. Atrial fibrillation - Continue digoxin and beta-des for rate control. - Telemetry - Controlled A-Fib - Continue to hold coumadin Heart Valve Replacement with Porcine Valve - patient unsure as to which valve was replaced and unable to find in records - Not a mechanical valve Seizure disorder - Seizure precautions - Continue phenytoin and phenobarbital PO tonight. - Phenytoin switched to Fosphenytoin IV starting tomorrow AM when NPO. Phenobarb ital switched to IV starting tomorrow. We will need to switch these back to PO o nce patient is taking PO. Benign essential hypertension Continue amlodipine and metoprolol tartrate. Deep vein thrombosis prophylaxis - SCDs bilaterally and JHONY's. Hold Coumadin for GI bleed. Advance Directive - Full Code D/W Dr. Barbour Associated attestation - Julien Barbour MD - 03/17/2021 5:16 PM EDT Patient has been seen and case reviewed with the WORK CAR OPERATOR/PA. Agree with physical exa m, assessment and plan. documented in this encounter H&P Notes * Trent Dai MD - 03/17/2021 4:44 AM EDT Images from the original note were not included. H & P PCP No primary care provider on file. CHIEF COMPLAINT: Bright red blood noted in stool. History Of Present Illness: HPI Mr. Shaheen Day is a 70-year-old male was sent at from [facility] as a dir ect admit to [facility] with chief complaint of bright red blood note d in stool. History is obtained from patient and review of medical records. According to them, patient has a history of blood clot removal from heart , valv e replacement and atrial fibrillation on warfarin for anticoagulation. He had b lack colored stools 2 days ago and yesterday noticed bright red blood per rectum . He presented to [facility] for further evaluation. He was transferred to [facility] for gastroenterology consultation. Past Medical History: He has a past medical history of A-fib (CMS/HCC), Hypertension, Prostate CA (CMS /HCC), Rheumatic fever, and Seizure (CMS/HCC). Past Surgical History: He has a past surgical history that includes Cardiac valuve replacement and Chol ecystectomy. Social History: He reports that he has never smoked. He has never used smokeless tobacco. He rep orts that he does not drink alcohol and does not use drugs. Family History: family history includes Cancer in his father and mother; Hypertension in his fat her; Lung cancer in his father. Allergies: Patient has no known allergies. Medications: I have reviewed and reconciled, where appropriate, the patient's current medicat ions. Prior to Admission medications Medication Sig Start Date End Date Taking? Authorizing Provider amLODIPine (NORVASC) 2.5 mg tablet Take 2.5 mg by mouth 1 (one) time each day. Yes Historical Provider, ascorbic acid (VITAMIN C) 1,000 mg tablet Take 1,000 mg by mouth 1 (one) time ea ch day. Yes Historical Provider, aspirin 81 mg EC tablet Take 81 mg by mouth 1 (one) time each day. Yes Histori edilberto ProviderMD digoxin (LANOXIN) 250 mcg (0.25 mg) tablet Take by mouth. Yes Historical Provi filemonMD docusate sodium (COLACE) 100 mg capsule Take 100 mg by mouth 2 (two) times a day . Yes Historical Provider, furosemide (LASIX) 20 mg tablet Take 20 mg by mouth 1 (one) time each day before lunch. AFTERNOON Yes Historical Provider, furosemide (LASIX) 40 mg tablet Take 40 mg by mouth 1 (one) time each day. Yes Historical Provider, metoprolol tartrate (LOPRESSOR) 50 mg tablet Take 50 mg by mouth 2 (two) times a day. Yes Historical Provider, multivitamin (THERAGRAN) tablet Take 1 tablet by mouth 1 (one) time each day. Yes Historical Provider, PHENobarbitaL (LUMINAL) 32.4 mg tablet Take 64.8 mg by mouth 2 (two) times a day . Yes Historical Provider, phenytoin (DILANTIN) 100 mg ER capsule Take 100 mg by mouth 3 (three) times a da y. Yes Historical Provider, potassium chloride (KLOR-CON M20) 20 mEq CR tablet Take 20 mEq by mouth 1 (one) time each day. Do not crush or chew. Yes Historical ProviderMD spironolactone (ALDACTONE) 25 mg tablet Take 12.5 mg by mouth 1 (one) time each day. Yes Historical Provider, warfarin (COUMADIN) 1 mg tablet Take 7 mg by mouth 1 (one) time each day. 2 days a week Yes Historical Provider, warfarin (COUMADIN) 6 mg tablet Take 6 mg by mouth 1 (one) time each day. 5 days a week Yes Historical Provider, Review Of Systems: Review of Systems Constitutional: Negative for chills, fatigue and fever. HENT: Negative for ear discharge, nosebleeds and sore throat. Eyes: Negative for visual disturbance. Respiratory: Negative for cough, shortness of breath and wheezing. Cardiovascular: Negative for chest pain, palpitations and leg swelling. Gastrointestinal: Positive for blood in stool. Negative for abdominal distention , abdominal pain, diarrhea, nausea and vomiting. Melena present. Genitourinary: Negative for dysuria, frequency, hematuria and urgency. Neurological: Positive for weakness (Generalized weakness present). Negative for seizures, syncope, facial asymmetry, speech difficulty, light-headedness, numbn ess and headaches. Last Recorded Vitals: Temp: [36.2 C (97.2 F)-36.8 C (98.2 F)] 36.2 C (97.2 F) Heart Rate: [67-88] 67 Resp: [16] 16 BP: (119-172)/(58-88) 119/58 Physical Examination: Physical Exam Constitutional: General: He is not in acute distress. Appearance: He is not ill-appearing, toxic-appearing or diaphoretic. HENT: Head: Normocephalic and atraumatic. Mouth/Throat: Mouth: Mucous membranes are moist. Eyes: General: No scleral icterus. Conjunctiva/sclera: Conjunctivae normal. Cardiovascular: Rate and Rhythm: Normal rate and regular rhythm. No extrasystoles are presen t. Heart sounds: S1 normal. Murmur heard. Systolic murmur is present. Pulmonary: Effort: No tachypnea, accessory muscle usage or respiratory distress. Breath sounds: Decreased breath sounds present. No wheezing, rhonchi or rales . Abdominal: General: Bowel sounds are normal. There is no distension. Palpations: Abdomen is soft. There is no mass. Tenderness: There is no abdominal tenderness. There is no guarding. Musculoskeletal: General: No swelling. Cervical back: Neck supple. No tenderness. Lymphadenopathy: Cervical: No cervical adenopathy. Skin: Capillary Refill: Capillary refill takes less than 2 seconds. Neurological: General: No focal deficit present. Mental Status: He is oriented to person, place, and time. Mental status is at baseline. LABS: I have reviewed the available lab and diagnostics results as appropriate and not e the following relevant results Recent Results (from the past 24 hour(s)) Hemoglobin Collection Time: 03/16/21 11:38 PM Result Value Ref Range Hemoglobin 13.4 (L) 14.0 - 18.0 g/dl Hematocrit Collection Time: 03/16/21 11:38 PM Result Value Ref Range Hematocrit 39.9 (L) 42.0 - 52.0 % Problem List: Principal Problem: GI bleed Active Problems: Melena BRBPR (bright red blood per rectum) Leucocytosis Assessment and Plan: Melena. Bright red blood per rectum. Gastrointestinal bleed in a patient on Coumadin. Patient will be kept NPO. Lester l give him Protonix 80 mg IV times once and start him on 8 milligram/hour Proton ix drip. Obtain consultation with mechanical maintenance worker. Will give vitamin K 10 m g IV times once. Monitor H&H every 6 hours and will transfuse as needed. Leukocytosis. Lymphocytosis. Obtain consultation with the power operator on-call . Follow up WBC count in a.m.. Atrial fibrillation. Continue digoxin and beta-des for rate control. Held Coumadin secondary to GI bleed. Seizure disorder. Start patient on seizure precautions. Continue phenytoin and phenobarbital. Benign essential hypertension. Continue amlodipine and metoprolol tartrate. Deep vein thrombosis prophylaxis. Patient is on SCDs bilaterally. Hold Coumadin for GI bleed. Code status. Patient is full code. Prognosis of this patient is fair. This document has been dictated using voice recognition software. Grammatical or typographical errors may be present which were not identified prior to final si gnature. . TRENT DAI MD 03/17/21 documented in this encounter Procedure Notes * Jad Cota DO - 03/19/2021 1:34 PM EDT Associated Order(s): COLONOSCOPY [facility] Endoscopy Patient Name: Shaheen Day Date of : 1950 Age: 70 Procedure Date: 03/19/2021 12:36 PM Admit Type: Inpatient Room: Room 1 Gender: Male Procedure: Colonoscopy Indications: Gastrointestinal bleeding Providers: Jad Cota (Doctor) Referring MD: Requesting Provider: Medicines: Monitored Anesthesia Care Complications: No immediate complications. Estimated Blood Loss: Estimated blood loss: none. Procedure: Pre-Anesthesia Assessment: - ASA Grade Assessment: III - A patient with severe systemic disease. The risks, benefits, alternatives, indications and techniques of the procedure have been discussed with the patient today. They have been given an opportunity to ask questions and all their questions have been answered fully and satisfactorily. They are aware of potential risks that include and are not limited to: reaction to anesthesia, intestinal perforation, hemorrhage, splenic injury potentially requiring splenectomy, perforation requiring exploratory laparotomy,infection including infection from endoscope, and possible ostomy, respiratory failure, WI, arrhythmia, missed polyps/lesions and exacerbation of diverticulitis. After I obtained informed consent, the scope was passed under direct vision. Throughout the procedure the patient's blood pressure, pulse, and oxygen saturations were monitored continuously. The Colonoscope was introduced through the anus and advanced to the cecum, identified by appendiceal orifice and ileocecal valve. The colonoscopy was performed with moderate difficulty due to a tortuous colon. The patient tolerated the procedure well. The quality of the bowel preparation was good. Findings: A fungating, infiltrative and ulcerated non-obstructing large mass was found in the recto-sigmoid colon at 12cm. The mass was partially circumferential (involving one-third of the lumen circumference). The mass measured five cm in length. No bleeding was present. Biopsies were taken with a cold forceps for histology. Area was tattooed with an injection of 2 mL of Alisa ink. Multiple small and large-mouthed diverticula were found in the sigmoid colon and descending colon. The colon (entire examined portion) was moderately tortuous. Advancing the scope required changing the patient's position. Internal hemorrhoids were found. The hemorrhoids were Grade I (internal hemorrhoids that do not prolapse). Impression: - Likely malignant tumor in the recto-sigmoid colon. Biopsied. Tattooed. - Diverticulosis in the sigmoid colon and in the descending colon. - Tortuous colon. - Internal hemorrhoids. Recommendation: - [facility]. - Await pathology results. - Refer to a colo-rectal surgeon. - Refer to an oncologist. - Perform CT scan (computed tomography) of the abdomen/pelvis with contrast today. Jad Cota, 03/19/2021 1:34:00 PM This report has been signed electronically.Jad Cota Number of Addenda: 0 Note Initiated On: 03/19/2021 12:36 PM * Jad Cota DO - 03/18/2021 11:16 AM EDT Associated Order(s): UPPER GI ENDOSCOPY [facility] Endoscopy Patient Name: Shaheen Day Date of : 1950 Age: 70 Procedure Date: 03/18/2021 11:00 AM Admit Type: Inpatient Room: Room 1 Gender: Male Procedure: Upper GI endoscopy Indications: Gastrointestinal bleeding of unknown origin Providers: Jad Cota (Doctor) Referring MD: CHETNA ESTRELLA MD, (Referring MD) Requesting Provider: Medicines: Monitored Anesthesia Care Complications: No immediate complications. Estimated Blood Loss: Estimated blood loss: none. Procedure: Pre-Anesthesia Assessment: - ASA Grade Assessment: III - A patient with severe systemic disease. The risks, benefits, alternatives, indications and techniques of the procedure have been discussed with the patient today. They have been given an opportunity to ask questions and all their questions have been answered fully and satisfactorily. They are aware of potential risks that include and are not limited to: reaction to anesthesia, dental damage, intestinal perforation,infection including infection from endoscope, and hemorrhage. After obtaining informed consent, the scope was passed under direct vision. Throughout the procedure the patient's blood pressure, pulse, and oxygen saturations were monitored continuously. The gastroscope was introduced through the mouth, and advanced to the second part of duodenum. The upper GI endoscopy was accomplished without difficulty. The patient tolerated the procedure well. Findings: The examined esophagus was normal. Non-severe esophagitis with no bleeding was found at the gastroesophageal junction. Diffuse mildly erythematous mucosa without bleeding was found in the gastric antrum. A few 8 mm sessile polyps with no bleeding were found in the duodenal bulb. Biopsies were taken with a cold forceps for histology. The first portion of the duodenum and second portion of the duodenum were normal. Impression: - Normal esophagus. - Non-severe reflux esophagitis with no bleeding. - Erythematous mucosa in the antrum. - A few duodenal polyps. Biopsied. - Normal first portion of the duodenum and second portion of the duodenum. Recommendation: - Await pathology results. - Perform a colonoscopy tomorrow. Jad Cota, 03/18/2021 11:16:00 AM This report has been signed electronically.Jad Cota Number of Addenda: 0 Note Initiated On: 03/18/2021 11:00 AM documented in this encounter Consult Notes * Sultana Wyman MD - 03/19/2021 5:14 PM EDT CONSULT NOTE Reason for Consult Chief Complaint GI bleed History Of Present Illness HPI Past Medical History He has a past medical history of Benign essential HTN, Chronic anticoagulation, Permanent atrial fibrillation (CMS/HCC), Prostate CA (CMS/HCC), Rheumatic fever, and Seizure (CMS/HCC). Surgical History He has a past surgical history that includes Cardiac valuve replacement and Chol ecystectomy. Social History He reports that he has never smoked. He has never used smokeless tobacco. He rep orts that he does not drink alcohol and does not use drugs. Family History family history includes Cancer in his father and mother; Hypertension in his fat her; Lung cancer in his father. Allergies Patient has no known allergies. Medications Current Facility-Administered Medications: acetaminophen (TYLENOL) tablet 650 mg, 650 mg, oral, q4h PRN, 650 mg at 03/17/21 1737 OR acetaminophen (TYLENOL) 160 mg/5 mL solution 640 mg, 640 mg , oral, q4h PRN OR acetaminophen (TYLENOL) suppository 650 mg, 650 mg, recta l, q4h PRN, Jad Cota DO amLODIPine (NORVASC) tablet 2.5 mg, 2.5 mg, oral, Daily, Jad Cota DO, 2.5 mg at 03/19/21 0812 ascorbic acid (VITAMIN C) tablet 1,000 mg, 1,000 mg, oral, Daily, Jad collazo DO, 1,000 mg at 03/19/21 0811 [Held by Provider] aspirin EC tablet 81 mg, 81 mg, oral, Daily, Jad seals DO digoxin (LANOXIN) tablet 250 mcg, 250 mcg, oral, q PM, Vishal Almeida O, 250 mcg at 03/18/21 1707 fosphenytoin (CEREBYX) 100 mg PE in sodium chloride 0.9% 50 mL IVPB, 100 mg PE, intravenous, TID, Jad Cota DO, 100 mg PE at 03/19/21 0813 lactated Ringer's infusion, 100 mL/hr, intravenous, Continuous, Jad seals DO, Stopped at 03/19/21 1326 metoprolol tartrate (LOPRESSOR) tablet 50 mg, 50 mg, oral, BID, Jad seals DO, 50 mg at 03/19/21 08 morphine injection 1 mg, 1 mg, intravenous, q4h PRN, Jad Cota DO multivitamin (THERAGRAN) tablet 1 tablet, 1 tablet, oral, Daily, Jad martinez DO, 1 tablet at 03/19/21 0812 naloxone (NARCAN) injection 0.1 mg, 0.1 mg, intravenous, PRN, Jad juárez DO ondansetron (ZOFRAN-ODT) dispersible tablet 4 mg, 4 mg, oral, q6h PRN OR ondansetron (ZOFRAN) injection 4 mg, 4 mg, intravenous, q6h PRN, Jad moyerv DO pantoprazole (PROTONIX) injection 40 mg, 40 mg, intravenous, q12h TIARRA, M tony RiverovDO, 40 mg at 03/19/21 0813 PHENobarbital injection 64.8 mg, 64.8 mg, intravenous, BID, Jad bright DO, 64.8 mg at 03/19/21 0900 [Held by Provider] spironolactone (ALDACTONE) tablet 12.5 mg, 12.5 mg, o ral, Daily, Jad Pinkhasov, DO [Held by Provider] warfarin (COUMADIN) tablet 6 mg, 6 mg, oral, Once per day on Thu, Jad Cota DO [Held by Provider] warfarin (COUMADIN) tablet 7 mg, 7 mg, oral, Once per day on Thu Sat, Jad Cota, DO All available medication has been reviewed Review of Systems Review of Systems Last Recorded Vitals Temp: [35.9 C (96.6 F)-37 C (98.6 F)] 37 C (98.6 F) Heart Rate: [72-79] 74 Resp: [14-18] 14 BP: (114-161)/(53-81) 151/81 Physical Exam Physical Exam Current I/O I/O last 3 completed shifts: In: 250 (3 mL/kg) [P.O.:150; I.V.:100 (1.2 mL/kg)] Out: 800 (9.5 mL/kg) [Urine:800 (0.3 mL/kg/hr)] Weight: 83.9 kg I/O this shift: In: 300 [I.V.:300] Out: 0.1 [Blood:0.1] Labs Recent Results (from the past 24 hour(s)) Digoxin level Collection Time: 03/19/21 4:14 AM Result Value Ref Range Digoxin 0.80 0.80 - 2.00 ng/ml Phenytoin level, total Collection Time: 03/19/21 4:14 AM Result Value Ref Range Phenytoin 8.8 (L) 10.0 - 20.0 ug/ml Phenobarbital level Collection Time: 03/19/21 4:14 AM Result Value Ref Range Phenobarbital 30.3 15.0 - 40.0 ug/ml I have reviewed all available labs CURRENT IMAGING No image results found. Problem List Principal Problem: GI bleed Active Problems: Melena BRBPR (bright red blood per rectum) Lymphoproliferative disorder (CMS/HCC) Permanent atrial fibrillation (CMS/HCC) Seizure (CMS/HCC) Essential hypertension History of heart valve replacement with porcine valve Chronic anticoagulation Rheumatic fever Benign essential HTN Colonic mass Assessment and Plan Full consult to follow Dictation was done through [employer] ,Please excuse spelling error and mi stake may have taken place . SULTANA JOHNSON MD 03/19/21 * Valentina Hess MD - 03/17/2021 1:30 PM EDT Associated Order(s): IP CONSULT TO ONCOLOGY CONSULT NOTE Reason for Consult Leukocytosis Chief Complaint BRBPR History Of Present Illness Patient is a pleasant 70-year-old who [place] away from [place]. He wa s transferred from [facility] for bright red blood per rectum. He has a presumed GI blood loss. He is on chronic Coumadin for atrial fibrillat ion and history of valve replacement. On [place] [address], hemoglobin 12. 8, absolute lymphocyte count elevated at 6850. Patient tells me he follows in [place] with an oncologist for his history of p rostate cancer. His primary care doctor is in [place]. Past Medical History He has a past medical history of A-fib (CMS/HCC), Hypertension, Prostate CA (CMS /HCC), Rheumatic fever, and Seizure (CMS/HCC). Surgical History He has a past surgical history that includes Cardiac valuve replacement and Chol ecystectomy. Social History He reports that he has never smoked. He has never used smokeless tobacco. He rep orts that he does not drink alcohol and does not use drugs. Family History family history includes Cancer in his father and mother; Hypertension in his fat her; Lung cancer in his father. Allergies Patient has no known allergies. Medications Current Facility-Administered Medications: acetaminophen (TYLENOL) tablet 650 mg, 650 mg, oral, q4h PRN, 650 mg at 03/17/21 0131 OR acetaminophen (TYLENOL) 160 mg/5 mL solution 640 mg, 640 mg , oral, q4h PRN OR acetaminophen (TYLENOL) suppository 650 mg, 650 mg, recta l, q4h PRN, Trent Dai MD amLODIPine (NORVASC) tablet 2.5 mg, 2.5 mg, oral, Daily, Trent Dai MD, 2.5 mg at 03/17/21 1017 ascorbic acid (VITAMIN C) tablet 1,000 mg, 1,000 mg, oral, Daily, Trent Dai MD, 1,000 mg at 03/17/21 1017 [Held by Provider] aspirin EC tablet 81 mg, 81 mg, oral, Daily, Trent green MD digoxin (LANOXIN) tablet 250 mcg, 250 mcg, oral, q PM, Trent Dai MD , 250 mcg at 03/17/21 0129 [START ON 03/18/2021] fosphenytoin (CEREBYX) 100 mg PE in sodium chloride 0.9% 50 mL IVPB, 100 mg PE, intravenous, TID, Ila Maloney NP metoprolol tartrate (LOPRESSOR) tablet 50 mg, 50 mg, oral, BID, Trent green MD, 50 mg at 03/17/21 1018 morphine injection 1 mg, 1 mg, intravenous, q4h PRN, Trent Dai MD multivitamin (THERAGRAN) tablet 1 tablet, 1 tablet, oral, Daily, Trent Dai MD, 1 tablet at 03/17/21 1018 naloxone (NARCAN) injection 0.1 mg, 0.1 mg, intravenous, PRN, Trent booth MD ondansetron (ZOFRAN-ODT) dispersible tablet 4 mg, 4 mg, oral, q6h PRN OR ondansetron (ZOFRAN) injection 4 mg, 4 mg, intravenous, q6h PRN, Trent booth MD [COMPLETED] pantoprazole (PROTONIX) 80 mg in sodium chloride 0.9% 100 mL IVPB, 80 mg, intravenous, Once, Stopped at 03/17/21 0043 AND pantoprazole ( PROTONIX) 80 mg in sodium chloride 0.9% 100 mL (0.8 mg/mL) infusion, 8 mg/hr, in travenous, Continuous, Trent Dai MD, Last Rate: 10 mL/hr at 03/17/21 1100, 8 mg/hr at 03/17/21 1100 PHENobarbitaL (LUMINAL) tablet 64.8 mg, 64.8 mg, oral, BID, Ila Maloney NP, 64.8 mg at 03/17/21 1017 [START ON 03/18/2021] PHENobarbital injection 64.8 mg, 64.8 mg, intraveno us, BID, Ila Maloney NP phenytoin (DILANTIN) ER capsule 100 mg, 100 mg, oral, TID, Ila Maloney NP, 100 mg at 03/17/21 1017 [Held by Provider] spironolactone (ALDACTONE) tablet 12.5 mg, 12.5 mg, o ral, Daily, Trent Dai MD [Held by Provider] warfarin (COUMADIN) tablet 6 mg, 6 mg, oral, Once per day on Thu, Trent Dai MD [Held by Provider] warfarin (COUMADIN) tablet 7 mg, 7 mg, oral, Once per day on Thu, Trent Dai MD Review of Systems Review of Systems Constitutional: Negative for chills and fever. HENT: Negative for ear pain and sore throat. Eyes: Negative for pain and visual disturbance. Respiratory: Negative for cough and shortness of breath. Cardiovascular: Negative for chest pain and palpitations. Gastrointestinal: Positive for blood in stool. Negative for abdominal pain and v omiting. Genitourinary: Negative for dysuria and hematuria. Musculoskeletal: Negative for arthralgias and back pain. Skin: Negative for color change and rash. Neurological: Negative for seizures and syncope. All other systems reviewed and are negative. Last Recorded Vitals Temp: [36.2 C (97.2 F)-36.8 C (98.2 F)] 36.3 C (97.3 F) Heart Rate: [67-88] 67 Resp: [16] 16 BP: (119-172)/(58-88) 158/79 Physical Exam Physical Exam Vitals and nursing note reviewed. Constitutional: General: He is not in acute distress. Appearance: Normal appearance. He is well-developed. He is obese. He is not d iaphoretic. HENT: Head: Normocephalic. Mouth/Throat: Mouth: Mucous membranes are moist. Pharynx: Oropharynx is clear. No oropharyngeal exudate. Eyes: General: No scleral icterus. Pupils: Pupils are equal, round, and reactive to light. Cardiovascular: Rate and Rhythm: Normal rate and regular rhythm. Heart sounds: Normal heart sounds. No murmur heard. Pulmonary: Effort: Pulmonary effort is normal. Breath sounds: Normal breath sounds. No wheezing or rales. Abdominal: General: Bowel sounds are normal. There is no distension. Palpations: Abdomen is soft. There is no mass. Tenderness: There is no abdominal tenderness. Musculoskeletal: General: No deformity. Normal range of motion. Cervical back: Normal range of motion and neck supple. Lymphadenopathy: Cervical: No cervical adenopathy. Skin: General: Skin is warm and dry. Findings: No rash. Neurological: General: No focal deficit present. Mental Status: He is alert and oriented to person, place, and time. Psychiatric: Behavior: Behavior normal. Thought Content: Thought content normal. Judgment: Judgment normal. 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 I lester l order diagnostic blood work when able, likely tomorrow, which includes flow cy tometry. I informed the patient he will need to follow-up with his oncologist in [place] which is closer to where he lives. I can be in touch with that phys ician when patient is discharged from the hospital. No further intervention at this time is necessary other than to make the diagnosis. Thanks for the consult . .VALENTINA HESS MD 03/17/21 * Star Kiran PA - 03/17/2021 10:34 AM EDT Associated Order(s): Consult to GI Consult to GI Consult performed by: OMERO Porras Consult ordered by: Trent Dai MD Reason for consult: GI bleed History Of Present Illness Shaheen Day is a 70 y.o. male presenting who was transferred from [facility] for GI bleeding. Patient is a limited historian. History is mostly obtained f rom the chart. Chronically anticoagulated for Afib. Hx bioprosthetic heart valve replacement and reported hx of blood clot in the heart. Reports black stools which then turned to dark red blood. He is unsure when he l ast took Coumadin. Denies use of NSAID's. Remote hx of rectal bleeding and had a colonoscopy many years ago but does not recall details. Denies any nausea, vomi ting, hematemesis or abdominal pain. Hematology has been asked to see the patien t for leukocytosis and lymphocytosis. Past Medical History He has a past medical history of A-fib (CMS/HCC), Hypertension, Prostate CA (CMS /HCC), Rheumatic fever, and Seizure (CMS/HCC). Surgical History He has a past surgical history that includes Cardiac valuve replacement and Chol ecystectomy. Social History He reports that he has never smoked. He has never used smokeless tobacco. He rep orts that he does not drink alcohol and does not use drugs. Family History family history includes Cancer in his father and mother; Hypertension in his fat her; Lung cancer in his father. Allergies Patient has no known allergies. Medications amLODIPine, 2.5 mg, oral, Daily ascorbic acid, 1,000 mg, oral, Daily [Held by Provider] aspirin, 81 mg, oral, Daily digoxin, 250 mcg, oral, q PM metoprolol tartrate, 50 mg, oral, BID multivitamin, 1 tablet, oral, Daily PHENobarbitaL, 64.8 mg, oral, BID phenytoin, 100 mg, oral, TID [Held by Provider] spironolactone, 12.5 mg, oral, Daily [Held by Provider] warfarin, 6 mg, oral, Once per day on Thu [Held by Provider] warfarin, 7 mg, oral, Once per day on Thu Sat pantoprozole (PROTONIX) infusion, 8 mg/hr, Last Rate: 8 mg/hr (03/17/21 0052) PRN medications: acetaminophen OR acetaminophen OR acetaminophen, morphi ne, naloxone, ondansetron OR ondansetron I have reviewed and reconciled, where appropriate, the patient's current medicat ions. Review of Systems Physical Exam Vitals reviewed. HENT: Head: Normocephalic. Mouth/Throat: Mouth: Mucous membranes are moist. Eyes: Conjunctiva/sclera: Conjunctivae normal. Cardiovascular: Rate and Rhythm: Normal rate. Rhythm irregular. Heart sounds: Murmur heard. Abdominal: General: Bowel sounds are normal. There is no distension. Palpations: Abdomen is soft. Tenderness: There is no abdominal tenderness. There is no guarding or rebound . Genitourinary: Comments: No mass or tenderness within fingers reach. Maroon colored stool no jhony on glove. Musculoskeletal: Right lower leg: No edema. Left lower leg: No edema. Skin: General: Skin is warm and dry. Neurological: Mental Status: He is alert. Last Recorded Vitals Blood pressure 158/79, pulse 67, temperature 36.3 C (97.3 F), temperatur e source Temporal, resp. rate 16, height 1.625 m (5' 3.98"), weight 83.9 kg (185 lb), SpO2 92 %. Relevant Results Results from last 7 days Lab Units 03/17/21 0440 03/16/21 2338 WBC x1000/ul 21.42* -- HEMOGLOBIN g/dl 12.8* | 12.8* 13.4* HEMATOCRIT % 38.5* | 38.9* 39.9* PLATELETS x1000/ul 151 -- NEUTROPHILS % 59 -- LYMPHOCYTES % 31 -- MONOCYTES % 5 -- EOSINOPHILS % 2 -- BASOPHILS % 0 -- NUCLEATED RBCS % 0.00 -- Results from last 7 days Lab Units 03/17/21 0440 SODIUM mEq/L 140 POTASSIUM mEq/L 4.1 CHLORIDE mEq/L 110.0* CO2 mMol/L 24.4 BUN mg/dl 13 CREATININE mg/dl 0.76 CALCIUM mg/dl 8.3* PROTEIN TOTAL g/dl 6.2* ALK PHOS mIU/ml 142* ALT IU/L 27 AST IU/L 34 GLUCOSE mg/dl 91 Results from last 7 days Lab Units 03/17/21 0440 INR 2.1* I have reviewed the available lab and diagnostic results as appropriate. Assessment/Plan Principal Problem: GI bleed Active Problems: Melena BRBPR (bright red blood per rectum) Leucocytosis 70 y/o male chronically anticoagulated with coumadin who is admitted with a GI b leed, upper vs lower GI blood loss. H/H with decline although is hemodynamically stable. Abdominal exam is benign. Serial H/H q 6 hours and will transfuse if ne eded. Continue pantoprazole drip. Vitamin K given. If INR remains elevated will give FFP prior to endoscopy. We are planning for upper endoscopic evaluation ronald kamara with Dr. Cota. If this is unrevealing colonoscopy will be recommended . Associated attestation - Jad Cota DO - 03/17/2021 6:53 PM EDT Patient seen and examined at bedside. Agree with assessment and plan as outline d. 70-year-old male chronically anticoagulated on Coumadin admitted with GI bleed. Patient will need FFP prior to endoscopy which is planned for tomorrow. documented in this encounter Nursing Notes * Sherice Reece RN - 03/20/2021 9:29 AM EDT Assessment per FS. AAOx3-can be forgetful. BUE ecchymotic. BLEE. Tolerating full s-no c/o any N/V. Saline locked. OOB independently. Voiding w/out difficulty. 1230-Diet advanced to regular-tolerating well. Ok for d/c home. IV out-catheter intact. D/C instructions signed and went over w/pt. Medications per emar. Call b ell in reach. Safety maintained. Pending transportation arrival scheduled for 14 45 via transport. * Cristal Guido RN - 03/20/2021 7:30 AM EDT Assessment per flowsheet. VSS. A&O x4. Independent in the room. IVF infusing. No c/o pain throught shift. Safety measures maintained. Call nowak within reach. Reported off to oncoming RN. * Dianna Crystal RN - 03/19/2021 7:16 PM EDT Assessment per flow sheet. Patient is alert/oriented & able to make needs known. Voiding without difficulty. IV fluids infusing. Tolerating diet without N/V. Medicated for headache- Tylenol x1 with relief. Call nowak in reach. Safety maintained. Patient is resting in bed at this time. 1814- Patient finished oral contrast for CT. Tolerated well. senior director of [employer] aware- will call around 1930 to bring patient to CT. * Talisha Weinstein RN - 03/19/2021 3:49 PM EDT Pt returned to the unit s/p colonoscopy with a flat affect. States he "received bad news". [employer] comforted pt and settled in bed. Also gave pt a phone to use t o call his family. Denies pain/discomfort. Call nowak within reach at all times. * Cristal Guido RN - 03/19/2021 4:46 AM EDT Obtained care of pt at 1830. See flowsheet for assessment and vitals. VSS. Pt is scheduled for a colonoscopy at 10am this morning. Bowel prep completed. No c/o pain throughout shift. Pt resting comfortably. Call nowak within reach. Safety me asures maintained. Will continue to monitor. * Talisha Weinstein RN - 03/18/2021 6:21 PM EDT A+Ox3. Tolerating clear liquids without issues s/p EGD. No bloody stools noted t his AM. Denies pain/discomfort. Assessment per flowsheet. Started on a bowel pre p for colonoscopy tomorrow. Call nowak within reach at all times. * Sia Moore RN - 03/18/2021 11:43 AM EDT Transport called spoke to pt * Sia Moore RN - 03/18/2021 11:35 AM EDT Report called to #[id number] 1st floor spoke to Emeda * Joseline Denise RN - 03/18/2021 4:50 AM EDT Assessment per FS. Patient is AA+O x3 able to make needs known. Continent of bow el and bladder, VSS no c/os pain. Patient NPO after midnight. Cont on protonix a t 10ml/hr. Tele #16 reading Afib -78. Patient is up and OOB to the bathroom inde pendently. Remains on seizure prec . No seizure activity noted. Call light remai ns in reach , safety maintained. * Lien Anne RN - 03/17/2021 7:43 AM EDT Assessment per nrsng flowsheet. Pt arrived at 1945 via stretcher in stable condi tion, BP elevated. Pt NPO per order. Protonix gtt maintained. OOB to the BR inde pendent. BM x4, bright red with clots. Tylenol adm x1 for headache with good eff ect. Pt slept well through most of shift. Call nowak within reach, comfort and s afety maintained. documented in this encounter Miscellaneous Notes * Care Plan - Cristal Guido RN - 03/20/2021 4:18 AM EDT Problem: Pain - Adult Goal: Verbalizes/displays adequate comfort level or baseline comfort level Outcome: Progressing Problem: Infection - Adult Goal: Absence of infection during hospitalization Outcome: Progressing Problem: Safety Adult - Fall Goal: Free from fall injury Outcome: Progressing Problem: Discharge Planning Goal: Discharge to home or other facility with appropriate resources Outcome: Progressing Problem: Chronic Conditions and Co-morbidities Goal: Patient's chronic conditions and co-morbidity symptoms are monitored and m aintained or improved Outcome: Progressing Problem: Cardiovascular - Adult Goal: Maintains optimal cardiac output and hemodynamic stability Outcome: Progressing Goal: Absence of cardiac dysrhythmias or at baseline Outcome: Progressing Problem: Gastrointestinal - Adult Goal: Minimal or absence of nausea and vomiting Outcome: Progressing Goal: Maintains or returns to baseline bowel function Outcome: Progressing Goal: Maintains adequate nutritional intake Outcome: Progressing Goal: Establish and maintain optimal ostomy function Outcome: Progressing Problem: Metabolic/Fluid and Electrolytes - Adult Goal: Electrolytes maintained within normal limits Outcome: Progressing Goal: Hemodynamic stability and optimal renal function maintained Outcome: Progressing Goal: Glucose maintained within prescribed range Outcome: Progressing Problem: Hematologic - Adult Goal: Maintains hematologic stability Outcome: Progressing * Care Plan - Talisha Weinstein RN - 03/19/2021 9:49 AM EDT Problem: Pain - Adult Goal: Verbalizes/displays adequate comfort level or baseline comfort level Outcome: Progressing Flowsheets (Taken 03/18/2021 1035) Verbalizes/displays adequate comfort level or baseline comfort level: Encourage patient to monitor pain and request assistance Assess pain using appropriate pain scale Administer analgesics based on type and severity of pain and evaluate response Implement non-pharmacological measures as appropriate and evaluate response Consider cultural and social influences on pain and pain management Notify Licensed Independent Practitioner if interventions unsuccessful or patie nt reports new pain Problem: Infection - Adult Goal: Absence of infection during hospitalization Outcome: Progressing Flowsheets (Taken 03/18/2021 1035) Absence of infection during hospitalization: Assess and monitor for signs and symptoms of infection Monitor lab/diagnostic results Monitor all insertion sites i.e., indwelling lines, tubes and drains [place] appropriate cooling/warming therapies per order Administer medications as ordered Instruct and encourage patient and family to use good hand hygiene technique Monitor endotracheal (as able) and nasal secretions for changes in amount and c olor Problem: Safety Adult - Fall Goal: Free from fall injury Outcome: Progressing Flowsheets (Taken 03/18/2021 1035) Free from fall injury: Assess patient frequently for physical needs Identify cognitive and physical deficits and behaviors that affect risk of fall s Modify environment to reduce risk of injury [place] fall precautions as indicated by assessment Problem: Discharge Planning Goal: Discharge to home or other facility with appropriate resources Outcome: Progressing Flowsheets (Taken 03/18/2021 1035) Discharge to home or other facility with appropriate resources: Identify barriers to discharge with patient and caregiver Identify discharge learning needs (meds, wound care, etc) Refer to discharge planning if patient needs post-hospital services based on ph ysician order or complex needs related to functional status, cognitive ability o r social support system Problem: Chronic Conditions and Co-morbidities Goal: Patient's chronic conditions and co-morbidity symptoms are monitored and m aintained or improved Outcome: Progressing Flowsheets (Taken 03/18/2021 1035) Patient's chronic conditions are monitored and maintained or improved: Monitor a nd assess patient's chronic conditions and comorbid symptoms for stability, dete rioration, or improvement Problem: Gastrointestinal - Adult Goal: Maintains or returns to baseline bowel function Outcome: Progressing Flowsheets (Taken 03/18/2021 1035) Maintains or returns to baseline bowel function: Assess bowel function Problem: Hematologic - Adult Goal: Maintains hematologic stability Outcome: Progressing Flowsheets (Taken 03/18/2021 1035) Maintains hematologic stability: Assess for signs and symptoms of bleeding or hemorrhage Monitor labs * Care Plan - Cristal Guido RN - 03/19/2021 1:20 AM EDT Problem: Pain - Adult Goal: Verbalizes/displays adequate comfort level or baseline comfort level Outcome: Progressing Problem: Infection - Adult Goal: Absence of infection during hospitalization Outcome: Progressing Problem: Safety Adult - Fall Goal: Free from fall injury Outcome: Progressing Problem: Discharge Planning Goal: Discharge to home or other facility with appropriate resources Outcome: Progressing Problem: Chronic Conditions and Co-morbidities Goal: Patient's chronic conditions and co-morbidity symptoms are monitored and m aintained or improved Outcome: Progressing Problem: Cardiovascular - Adult Goal: Maintains optimal cardiac output and hemodynamic stability Outcome: Progressing Goal: Absence of cardiac dysrhythmias or at baseline Outcome: Progressing Problem: Gastrointestinal - Adult Goal: Minimal or absence of nausea and vomiting Outcome: Progressing Goal: Maintains or returns to baseline bowel function Outcome: Progressing Goal: Maintains adequate nutritional intake Outcome: Progressing Goal: Establish and maintain optimal ostomy function Outcome: Progressing Problem: Metabolic/Fluid and Electrolytes - Adult Goal: Electrolytes maintained within normal limits Outcome: Progressing Goal: Hemodynamic stability and optimal renal function maintained Outcome: Progressing Goal: Glucose maintained within prescribed range Outcome: Progressing Problem: Hematologic - Adult Goal: Maintains hematologic stability Outcome: Progressing * Care Plan - Talisha Weinstein RN - 03/18/2021 10:36 AM EDT Problem: Pain - Adult Goal: Verbalizes/displays adequate comfort level or baseline comfort level Outcome: Progressing Flowsheets (Taken 03/18/2021 1035) Verbalizes/displays adequate comfort level or baseline comfort level: Encourage patient to monitor pain and request assistance Assess pain using appropriate pain scale Administer analgesics based on type and severity of pain and evaluate response Implement non-pharmacological measures as appropriate and evaluate response Consider cultural and social influences on pain and pain management Notify Licensed Independent Practitioner if interventions unsuccessful or patie nt reports new pain Problem: Infection - Adult Goal: Absence of infection during hospitalization Outcome: Progressing Flowsheets (Taken 03/18/2021 1035) Absence of infection during hospitalization: Assess and monitor for signs and symptoms of infection Monitor lab/diagnostic results Monitor all insertion sites i.e., indwelling lines, tubes and drains [place] appropriate cooling/warming therapies per order Administer medications as ordered Instruct and encourage patient and family to use good hand hygiene technique Monitor endotracheal (as able) and nasal secretions for changes in amount and c olor Problem: Safety Adult - Fall Goal: Free from fall injury Outcome: Progressing Flowsheets (Taken 03/18/2021 1035) Free from fall injury: Assess patient frequently for physical needs Identify cognitive and physical deficits and behaviors that affect risk of fall s Modify environment to reduce risk of injury [place] fall precautions as indicated by assessment Problem: Discharge Planning Goal: Discharge to home or other facility with appropriate resources Outcome: Progressing Flowsheets (Taken 03/18/2021 1035) Discharge to home or other facility with appropriate resources: Identify barriers to discharge with patient and caregiver Identify discharge learning needs (meds, wound care, etc) Refer to discharge planning if patient needs post-hospital services based on ph ysician order or complex needs related to functional status, cognitive ability o r social support system Problem: Chronic Conditions and Co-morbidities Goal: Patient's chronic conditions and co-morbidity symptoms are monitored and m aintained or improved Outcome: Progressing Flowsheets (Taken 03/18/2021 1035) Patient's chronic conditions are monitored and maintained or improved: Monitor a nd assess patient's chronic conditions and comorbid symptoms for stability, dete rioration, or improvement Problem: Cardiovascular - Adult Goal: Maintains optimal cardiac output and hemodynamic stability Outcome: Progressing Flowsheets (Taken 03/18/2021 1035) Maintain optimal cardiac output and hemodynamic stability: Monitor vital signs, rhythm, and trends Monitor for bleeding, hypotension and signs of decreased cardiac output Assess quality of pulses, skin color and temperature Assess for signs of decreased coronary artery perfusion - ex. angina Goal: Absence of cardiac dysrhythmias or at baseline Outcome: Progressing Flowsheets (Taken 03/18/2021 1035) Absence of cardiac dysrhythmias or at baseline: Continuous cardiac monitoring, m onitor vital signs, obtain 12 lead EKG if indicated Problem: Gastrointestinal - Adult Goal: Maintains or returns to baseline bowel function Outcome: Progressing Flowsheets (Taken 03/18/2021 1035) Maintains or returns to baseline bowel function: Assess bowel function Problem: Hematologic - Adult Goal: Maintains hematologic stability Outcome: Progressing Flowsheets (Taken 03/18/2021 103) Maintains hematologic stability: Assess for signs and symptoms of bleeding or hemorrhage Monitor labs * Joseline Padilla RN - 03/18/2021 4:59 AM EDT Problem: Pain - Adult Goal: Verbalizes/displays adequate comfort level or baseline comfort level Outcome: Progressing Problem: Infection - Adult Goal: Absence of infection during hospitalization Outcome: Progressing Problem: Safety Adult - Fall Goal: Free from fall injury Outcome: Progressing Problem: Discharge Planning Goal: Discharge to home or other facility with appropriate resources Outcome: Progressing Problem: Chronic Conditions and Co-morbidities Goal: Patient's chronic conditions and co-morbidity symptoms are monitored and m aintained or improved Outcome: Progressing Problem: Cardiovascular - Adult Goal: Maintains optimal cardiac output and hemodynamic stability Outcome: Progressing Goal: Absence of cardiac dysrhythmias or at baseline Outcome: Progressing Problem: Gastrointestinal - Adult Goal: Minimal or absence of nausea and vomiting Outcome: Progressing Problem: Hematologic - Adult Goal: Maintains hematologic stability Outcome: Progressing * Care Michelle - Lien Anne RN - 03/17/2021 4:38 AM EDT Problem: Pain - Adult Goal: Verbalizes/displays adequate comfort level or baseline comfort level Outcome: Started Flowsheets (Taken 03/17/2021435) Verbalizes/displays adequate comfort level or baseline comfort level: Encourage patient to monitor pain and request assistance Assess pain using appropriate pain scale Administer analgesics based on type and severity of pain and evaluate response Implement non-pharmacological measures as appropriate and evaluate response Consider cultural and social influences on pain and pain management Notify Licensed Independent Practitioner if interventions unsuccessful or patie nt reports new pain Problem: Infection - Adult Goal: Absence of infection during hospitalization Outcome: Started Flowsheets (Taken 03/17/2021435) Absence of infection during hospitalization: Assess and monitor for signs and symptoms of infection Monitor lab/diagnostic results Monitor all insertion sites i.e., indwelling lines, tubes and drains Administer medications as ordered Problem: Safety Adult - Fall Goal: Free from fall injury Outcome: Started Flowsheets (Taken 03/17/2021435) Free from fall injury: Assess patient frequently for physical needs Identify cognitive and physical deficits and behaviors that affect risk of fall s [place] fall precautions as indicated by assessment Educate patient/family on patient safety, including physical limitations Instruct patient to call for assistance with activity based on assessment Modify environment to reduce risk of injury Problem: Discharge Planning Goal: Discharge to home or other facility with appropriate resources Outcome: Started Flowsheets (Taken 03/17/2021435) Discharge to home or other facility with appropriate resources: Identify barriers to discharge with patient and caregiver Arrange for needed discharge resources and transportation as appropriate Identify discharge learning needs (meds, wound care, etc) Problem: Cardiovascular - Adult Goal: Maintains optimal cardiac output and hemodynamic stability Outcome: Started Flowsheets (Taken 03/17/2021435) Maintain optimal cardiac output and hemodynamic stability: Monitor vital signs, rhythm, and trends Monitor for bleeding, hypotension and signs of decreased cardiac output Monitor arterial and/or venous puncture sites for bleeding and/or hematoma Assess quality of pulses, skin color and temperature Assess for signs of decreased coronary artery perfusion - ex. angina Goal: Absence of cardiac dysrhythmias or at baseline Outcome: Started Flowsheets (Taken 03/17/2021435) Absence of cardiac dysrhythmias or at baseline: Continuous cardiac monitoring, monitor vital signs, obtain 12 lead EKG if indic ated Administer antiarrhythmic and heart rate control medications as ordered Monitor electrolytes and administer replacement therapy as ordered Problem: Gastrointestinal - Adult Goal: Minimal or absence of nausea and vomiting Outcome: Started Flowsheets (Taken 03/17/2021435) Minimal or absence of nausea and vomiting: Administer IV fluids as ordered to ensure adequate hydration Maintain NPO status until nausea and vomiting are resolved Administer ordered antiemetic medications as needed Goal: Maintains or returns to baseline bowel function Outcome: Started Flowsheets (Taken 03/17/2021435) Maintains or returns to baseline bowel function: Assess bowel function Administer IV fluids as ordered to ensure adequate hydration Encourage mobilization and activity Goal: Maintains adequate nutritional intake Outcome: Started Flowsheets (Taken 03/17/2021435) Maintains adequate nutritional intake: Monitor I&O, weight and lab values Goal: Establish and maintain optimal ostomy function Outcome: Started Flowsheets (Taken 03/17/2021435) Establish and maintain optimal ostomy function: Assess bowel function Administer IV fluids as ordered to ensure adequate hydration Problem: Metabolic/Fluid and Electrolytes - Adult Goal: Electrolytes maintained within normal limits Outcome: Started Flowsheets (Taken 03/17/2021435) Electrolytes maintained within normal limits: Monitor labs and assess patient for signs and symptoms of electrolyte imbalance s Fluid restriction as ordered Instruct patient on fluid and nutrition restrictions as appropriate Goal: Hemodynamic stability and optimal renal function maintained Outcome: Started Flowsheets (Taken 03/17/2021435) Hemodynamic stability and optimal renal function maintained: Monitor labs and assess for signs and symptoms of volume excess or deficit Monitor intake, output and patient weight Monitor urine specific gravity, serum osmolarity and serum sodium as indicated or ordered Instruct patient on fluid and nutrition restrictions as appropriate Goal: Glucose maintained within prescribed range Outcome: Started Flowsheets (Taken 03/17/2021435) Glucose maintained within prescribed range: Monitor Blood Glucose as ordered Assess for signs and symptoms of hyperglycemia and hypoglycemia Administer ordered medications to maintain glucose within target range Problem: Hematologic - Adult Goal: Maintains hematologic stability Outcome: Started Flowsheets (Taken 03/17/2021435) Maintains hematologic stability: Assess for signs and symptoms of bleeding or hemorrhage Monitor labs Administer supportive blood products/factors as ordered and appropriate documented in this encounter Plan of Treatment Date/Time Name Type Priority Associated Diag noses 03/18/2021 1:31 PM EDT [facility] [facility] Routine Benig n essential HTN Lab Test Order Schedule Name Type Priority Associated Diag noses Every 6hr for 1 Days starting 03/16/2021 until 03/17/2021, 3 completed Hemoglobin Lab Timed Every 6hr for 1 Days starting 03/16/2021 until 03/17/2021, 3 completed Hematocrit Lab Timed Once for 1 Occurrences starting 03/18/20 21 until 03/18/2021 [facility] [facility] Routine Lab Test Health Maintenance Due Date Last Done Comments FIT-DNA 1950 FOBT Annual 1950 Sigmoidoscopy 1950 MMR Vaccines (1 of 1 - 1951 Standard series) Varicella Vaccines (1 of 1951 2 - 2-dose childhood series) DTaP,Tdap,and Td Vaccines 1956 (1 - Tdap) COVID-19 Vaccine (1) 1965 Pneumococcal Vaccine: 65+ 2014 Years (1 of 1 - PPSV23) Influenza Vaccine (#1) 2021 Colonoscopy 03/19/2031 03/19/2021, 03/19/2021 Colorectal Cancer 03/19/2031 Screening HIB Vaccines Aged Out No longer eligible based on patient's age to complete this topic Hepatitis A Vaccines Aged Out No longer eligibl e based on patient's age to complete this topic Hepatitis B Vaccines Aged Out No longer eligibl e based on patient's age to complete this topic IPV Vaccines Aged Out No longer eligible based on patient's age to complete this topic documented as of this encounter Procedures Comments Procedure Name Priority Date/Time Associated Diag nosis RBC AND PLATELET Routine 03/20/2021 Benign essent ial HTN MORPHOLGY 5:17 AM EDT HC CBC W/ DIFFERENTIAL Routine 03/20/2021 Benign essential HTN 5:17 AM EDT BASIC METABOLIC PANEL Routine 03/20/2021 Benign e ssential HTN 5:[address] ABDOMEN PELVIS W Routine 03/19/2021 CONTRAST 7:41 PM EDT COLONOSCOPY 03/19/2021 1:34 PM EDT SURGICAL PATHOLOGY Routine 03/19/2021 Benign esse ntial HTN 12:45 PM EDT COLONOSCOPY 03/19/2021 GI Bleed 12:30 PM EDT ECG 12-LEAD STAT 03/19/2021 Benign essentia l HTN 9:21 AM EDT PHENYTOIN LEVEL, TOTAL Routine 03/19/2021 Benign essential HTN 4:14 AM EDT PHENOBARBITAL LEVEL Routine 03/19/2021 Benign ess ential HTN 4:14 AM EDT DIGOXIN LEVEL Routine 03/19/2021 Benign essentia l HTN 4:14 AM EDT UPPER GI ENDOSCOPY 03/18/2021 11:16 AM EDT SURGICAL PATHOLOGY Routine 03/18/2021 Benign esse ntial HTN 11:07 AM EDT EGD 03/18/2021 gi bleed (ESOPHAGOGASTRODUODENOSCO 10:57 AM EDT PY) PROTHROMBIN TIME NO Routine 03/18/2021 THERAPY OR UNKNOWN 5:00 AM EDT MANUAL DIFFERENTIAL Routine 03/18/2021 5:00 AM EDT HC CBC W/ DIFFERENTIAL Routine 03/18/2021 5:00 AM EDT BASIC METABOLIC PANEL Routine 03/18/2021 5:00 AM EDT PT ON THERAPY Timed 03/17/2021 11:43 AM EDT HEMOGLOBIN Timed 03/17/2021 11:43 AM EDT HEMATOCRIT Timed 03/17/2021 11:43 AM EDT PATHOLOGIST REVIEW: Routine 03/17/2021 HEMATOLOGY 4:40 AM EDT PROTHROMBIN TIME NO Routine 03/17/2021 THERAPY OR UNKNOWN 4:40 AM EDT MANUAL DIFFERENTIAL Routine 03/17/2021 4:40 AM EDT HC CBC W/ DIFFERENTIAL Routine 03/17/2021 4:40 AM EDT HEMOGLOBIN Timed 03/17/2021 4:40 AM EDT HEMATOCRIT Timed 03/17/2021 4:40 AM EDT COMPREHENSIVE METABOLIC Routine 03/17/2021 PANEL 4:40 AM EDT HEMOGLOBIN Timed 03/16/2021 11:38 PM EDT HEMATOCRIT Timed 03/16/2021 11:38 PM EDT documented in this encounter Results * RBC and Platelet Morpholgy (03/20/2021 5:17 AM EDT) [facility] RBC Morphology \\Normal based on slide scan [facility] Platelet \\Low based on slide scan [facility] Estimate Comment: LABORATORIES The above 2 analytes were performed by [facility] [address] [place] [address],[id number],[place] [address] Specimen Whole Blood Performing Organization Address City/State/ZIP Code P jace Number [facility] [address] [place] [address] KAUSHIK OWENS MD * Basic metabolic panel (03/20/2021 5:17 AM EDT) Pathologist [facility] Blood Urea 14 7 - 18 mg/dl [facility] Nitrogen LABORATORIES Creatinine 1.39 (H) 0.67 - 1.17 mg/dl [facility] Comment: LABORATORIES N-Acetylcysteine (NAC) and Metamizole have the potential to falsely depress Creatinine results. Baseline values before medication adminstration are recommended. Patients undergoing treatment with phenindione will have falsely depressed results. Patients on phenindione therapy should be tested with an alternative CREA method. Toxic levels of acetaminophen may lead to falsely depressed results for patient samples. Glomerular 50.00 mL/min/1.73m2 [facility] Filtration Rate Comment: LABORATORIES GFR Reference Ranges: Normal Function or Mild Renal Disease,if clinically at risk: >or= 60 Moderately decreased: 30 - 59 Severely decreased: 15 - 29 Renal Failure: <15 Please note that the MDRD equation requires an additional adjustment for -Americans (multiply the GFR result by 1.210). Glomarular Filtration Rate (GFR) is estimated based on the MDRD equation, which assumes a steady state for creatinine (Brsieida Int Med 139/2 137-149, 2003), as recommended by the National Kidney Disease Education Program in conjunction with the National Institutes of Health and the National Kidney Foundation. The [place] method used in calculating this result is traceable to IDMS standards. Glucose 95 70 - 110 mg/dl [facility] Comment: LABORATORIES Sulfasalazine has the potential to falsely depress Glucose results. Sulfapyridine has the potential to falsely elevate Glucose results. Baseline values before medication administration are recommended. Calcium 8.2 (L) 8.5 - 10.1 mg/dl [facility] Sodium 140 136 - 145 mEq/L [facility] Potassium 3.5 3.5 - 5.1 mEq/L [facility] Chloride 110.0 (H) 98.0 - 107.0 mEq/L [facility] Anion Gap 9.5 [facility] Carbon Dioxide 24.0 21.0 - 32.0 mMol/L [facility] Comment: LABORATORIES The above 10 analytes were performed by [facility] [address] [place] [address],[id number],[place] [address] Specimen Serum or Plasma Performing Organization Address City/State/ZIP Code P jace Number [facility] [address] [place] [address] KAUSHIK OWENS MD * CBC and differential (03/20/2021 5:17 AM EDT) WBC 19.41 (H) 4.80 - 10.00 [facility] x1000/ul LABORATORIES RBC 3.74 (L) 4.70 - 6.10 x1Mil/ul [facility] Hemoglobin 12.0 (L) 14.0 - 18.0 g/dl [facility] Hematocrit 36.0 (L) 42.0 - 52.0 % [facility] MCV 96.3 (H) 80.0 - 94.0 fL [facility] MCH 32.1 (H) 27.0 - 31.0 pg [facility] MCHC 33.3 32.2 - 37.0 g/dl [facility] RDW 13.4 11.5 - 14.5 % [facility] Platelet Count 92 (L) 130 - 400 x1000/ul [facility] MPV 10.3 9.4 - 12.4 fL [facility] Neutrophils 25.0 (L) 40.0 - 74.0 % [facility] Lymphocytes 68.1 (H) 19.0 - 48.0 % [facility] Monocytes 4.1 3.4 - 9.0 % [facility] Eosinophils 2.1 0.0 - 7.0 % [facility] Basophils 0.3 0.0 - 2.0 % [facility] Immature 0.4 0.0 - 0.5 % [facility] Granulocytes LABORATORIES Nucleated RBCs 0.20 0.00 - 0.20 % [facility] Abs. 4.88 1.92 - 8.31 x1000/ul [facility] Neutrophils LABORATORIES Abs. Lymphocyte 13.21 (H) 1.20 - 3.70 x1000/ul [facility] Abs. Monocytes 0.79 0.14 - 0.97 x1000/ul [facility] Abs. 0.40 0.00 - 0.76 x1000/ul [facility] Eosinophils LABORATORIES Abs. 0.05 0.00 - 0.22 x1000/ul [facility] Basophils LABORATORIES Abs. Immature 0.08 (H) 0.00 - 0.02 x1000/ul [facility] Gran. LABORATORIES Abs. Nucleated 0.04 (H) 0.00 - 0.02 x1000/ul [facility] RBCs Comment: LABORATORIES The above 24 analytes were performed by [facility] [address] [place] [address] [place], ,[place] [address] Specimen Whole Blood Performing Organization Address City/State/ZIP Code P jace Number [facility] [address] [place] [address] KAUSHIK OWENS MD * CT abdomen pelvis w IV contrast (03/19/2021 7:41 PM EDT) Specimen Impressions Performed At Impression: Multiple Metastatic lesions in the liver. [facility] INCOMING PS360 An exophytic mass arising RESULTING AGENCY from the right lateral wall of the colo n, best seen on seriesA 1, image 102 measuring about 2.3 x 2.1 cm. Multiple metastatic nodules at the visu alized lung bases. Exophytic mass in the wall of the colon. No ascites. Brachytherapy seeds are seen in the pro state. Electronically Signed by Carlos Kaye MD 03/19/2021 8:25 PM Narrative Performed At Patient: SHAHEEN DAY [facility] INCOMING PS360 RESULTING AGENCY : 1950 [facility] Procedure: CT ABDOMEN PELVIS W CONTRAST Provider: RHETT CHURCH CT of the abdomen and pelvis History: Follow up sigmoid mass seen on colonoscopy. Technique: Multidetector helical CT exa mination through the abdomen and pelvis was performed. Multiplanar contiguous a xial, sagittal, and coronal reformatted images are presented. CT imaging was performed utilizing dos e reduction techniques including automated exposure control and iterative reconstruction technique. Contrast: 100 mL intravenous contrast w as administered for the exam. Oral contrast was administered for the exam. Comparison: No relevant previous exams are available for comparison. Findings: Lower chest: Cardiomegaly. Left atrial enlargement the left atriu m measures about 9.4 x 10.2 cm.. Multiple metastatic nodules of various sizes seen at the lung bases. Liver: Multiple metastatic lesions in t he liver largest in the posterior segment of the right hepatic lobe measuring 4.0 x 4.8 cm. Gallbladder and Biliary Tree: Gallbladd er is surgically absent. No calcified gallstones are seen. There is no biliary ductal dilatation. Spleen: The spleen is not enlarged. No focal splenic mass is seen. Pancreas: The pancreas is unremarkable without mass lesion. Adrenal glands: No adrenal mass is seen . Kidneys: The kidneys are normal in shap e and size. There is no renal calculus. There is no worrisome renal mass. There is no hydronephrosis. Vessels and lymph nodes: There is no ab dominal aortic aneurysm. Diffuse atherosclerotic disease of the abdomina l aorta. There is no retroperitoneal hematoma or lymphadenopathy. Bowel and peritoneum: There is no bowel obstruction.Exophytic mass in the wall of the colon. No ascites. There is no free air. Bladder: Brachytherapy seeds are seen i n the prostate. Pelvis: No pelvic masses are present. Abdominal wall: There is no hernia seen . No inguinal lymphadenopathy is seen. Bones: No lytic or blastic lesions are seen. There is no fracture or subluxation. No gross osseous pathology is seen. Procedure Note Interface, Radiology Results In - 03/19/2021 8:26 PM EDT Patient: SHAHEEN DAY : 1950 PACS System: [employer] [facility] Procedure: CT ABDOMEN PELVIS W CONTRAST Provider: RHETT CHURCH CT of the abdomen and pelvis History: Follow up sigmoid mass seen on colonoscopy. Technique: Multidetector helical CT examination through the abdomen and pelvis was performed. Multiplanar contiguous axial, sagittal, and coronal reformatted images are presented. CT imaging was performed utilizing dose reduction techniques including automated exposure control and iterative reconstruction technique. Contrast: 100 mL intravenous contrast was administered for the exam. Oral contrast was administered for the exam. Comparison: No relevant previous exams are available for comparison. Findings: Lower chest: Cardiomegaly. Left atrial enlargement the left atrium measures about 9.4 x 10.2 cm.. Multiple metastatic nodules of various sizes seen at the lung bases. Liver: Multiple metastatic lesions in the liver largest in the posterior segment of the right hepatic lobe measuring 4.0 x 4.8 cm. Gallbladder and Biliary Tree: Gallbladder is surgically absent. No calcified gallstones are seen. There is no biliary ductal dilatation. Spleen: The spleen is not enlarged. No focal splenic mass is seen. Pancreas: The pancreas is unremarkable without mass lesion. Adrenal glands: No adrenal mass is seen. Kidneys: The kidneys are normal in shape and size. There is no renal calculus. There is no worrisome renal mass. There is no hydronephrosis. Vessels and lymph nodes: There is no abdominal aortic aneurysm. Diffuse atherosclerotic disease of the abdominal aorta. There is no retroperitoneal hematoma or lymphadenopathy. Bowel and peritoneum: There is no bowel obstruction.Exophytic mass in the wall of the colon. No ascites. There is no free air. Bladder: Brachytherapy seeds are seen in the prostate. Pelvis: No pelvic masses are present. Abdominal wall: There is no hernia seen. No inguinal lymphadenopathy is seen. Bones: No lytic or blastic lesions are seen. There is no fracture or subluxation. No gross osseous pathology is seen. IMPRESSION: Impression: Multiple Metastatic lesions in the liver. An exophytic mass arising from the right lateral wall of the colon, best seen on seriesA 1, image 102 measuring about 2.3 x 2.1 cm. Multiple metastatic nodules at the visualized lung bases. Exophytic mass in the wall of the colon. No ascites. Brachytherapy seeds are seen in the prostate. Electronically Signed by Carlos Kaye MD 03/19/2021 8:25 PM Performing Organization Address City/State/ZIP Code P jace Number [facility] INCOMING PS360 RESULTING AGENCY * COLONOSCOPY (03/19/2021 1:34 PM EDT) Specimen Narrative Performed At This result has an attachment that is n ot available. Procedure Note Jad Cota DO - 03/19/2021 1:34 PM EDT [facility] Endoscopy Patient Name: Shaheen Day Date of : 1950 Age: 70 Procedure Date: 03/19/2021 12:36 PM Admit Type: Inpatient Room: Room 1 Gender: Male Procedure: Colonoscopy Indications: Gastrointestinal bleeding Providers: Jad Cota (Doctor) Referring MD: Requesting Provider: Medicines: Monitored Anesthesia Care Complications: No immediate complications. Estimated Blood Loss: Estimated blood loss: none. Procedure: Pre-Anesthesia Assessment: - ASA Grade Assessment: III - A patient with severe systemic disease. The risks, benefits, alternatives, indications and techniques of the procedure have been discussed with the patient today. They have been given an opportunity to ask questions and all their questions have been answered fully and satisfactorily. They are aware of potential risks that include and are not limited to: reaction to anesthesia, intestinal perforation, hemorrhage, splenic injury potentially requiring splenectomy, perforation requiring exploratory laparotomy,infection including infection from endoscope, and possible ostomy, respiratory failure, WI, arrhythmia, missed polyps/lesions and exacerbation of diverticulitis. After I obtained informed consent, the scope was passed under direct vision. Throughout the procedure the patient's blood pressure, pulse, and oxygen saturations were monitored continuously. The Colonoscope was introduced through the anus and advanced to the cecum, identified by appendiceal orifice and ileocecal valve. The colonoscopy was performed with moderate difficulty due to a tortuous colon. The patient tolerated the procedure well. The quality of the bowel preparation was good. Findings: A fungating, infiltrative and ulcerated non-obstructing large mass was found in the recto-sigmoid colon at 12cm. The mass was partially circumferential (involving one-third of the lumen circumference). The mass measured five cm in length. No bleeding was present. Biopsies were taken with a cold forceps for histology. Area was tattooed with an injection of 2 mL of Alisa ink. Multiple small and large-mouthed diverticula were found in the sigmoid colon and descending colon. The colon (entire examined portion) was moderately tortuous. Advancing the scope required changing the patient's position. Internal hemorrhoids were found. The hemorrhoids were Grade I (internal hemorrhoids that do not prolapse). Impression: - Likely malignant tumor in the recto-sigmoid colon. Biopsied. Tattooed. - Diverticulosis in the sigmoid colon and in the descending colon. - Tortuous colon. - Internal hemorrhoids. Recommendation: - [facility]. - Await pathology results. - Refer to a colo-rectal surgeon. - Refer to an oncologist. - Perform CT scan (computed tomography) of the abdomen/pelvis with contrast today. Jad Cota, 03/19/2021 1:34:00 PM This report has been signed electronically.Jad Cota Number of Addenda: 0 Note Initiated On: 03/19/2021 12:36 PM * Surgical Pathology (03/19/2021 12:45 PM EDT) Specimen Tissue - Colon structure (body structure) Narrative Performed At [facility] [address] [place] [address] [place] Fax PATHOLOGY CLIA# [id number] Surgical Pathology Report PATIENT: SHAHEEN DAY MR #: [id number] Date Collected: 03/19/2021 Date Received: 03/19/2021 : 1950 Age: 70 y.o. Date Reported: 03/20/2021 Sex: M Location: [facility] Attending Physician: JAD COTA Clinical Information: R/O CANCER Specimen: RECTAL SIGMOID COLON MASS, BIOPSIES FINAL DIAGNOSIS RECTAL SIGMOID COLON MASS, BIOPSIES: INVASIVE MODERATELY DIFFERENTIATED MICHELLE OCARCINOMA. LDM/GF Comment Findings were reported to Dr. Jad wilcox on 03/20/2021. This case has been subjected to intrade partmental QA. LDM/gf Gross Received in formalin labeled rectosigmo id mass biopsies rule out cancer and consists of eleven wilcox to red irreg ular soft tissue fragments ranging from 0.1 to 0.5 cm in greatest dimensio n which are submitted in toto in two cassettes. SAI/kb Electronically Signed By: ICD: K51.90 Betty Owens MD CPT: 74487 Pathologist I ATTEST THAT THE ABOVE DIAGNOSIS IS BA SED UPON MY PERSONAL MICROSCOPIC EXAMINATION OF THE SLIDES (AND/OR OTHER MATERIAL), AND THAT I HAV E REVIEWED AND APPROVED THIS REPORT. PERFORMED AT: [facility] [address] [place] [address] THE TECHNICAL COMPONENT WAS PERFORMED A T [facility], [address] [place] [address]. EDITOR DEPARTMENT: BETTY OWENS M.D. CLIA# [id number]. SHAHEEN DAY Page 1 of 1 Performing Organization Address City/[facility] Code P jace Number [facility] [address] [place] [address] KAUSHIK OWENS MD * ECG 12 lead (03/19/2021 9:21 AM EDT) Specimen Narrative Performed At [facility] RESULTING AGENCY Test Date: 2021-03-19 Pat Name: SHAHEEN DAY Department: 1E Room: 175 Gender: M Distance Education Coordinator: Ele Rausch : 1950 Requested By: MYLES CRAFT Order Number: [id number] Reading MD: KEYLA CHANDLER Measurements Intervals [place] Rate: 83 P: TN: QRS: 3 QRSD: 87 T: -34 QT: 358 QTc: 421 Interpretive Statements Atrial fibrillation RSR' in V1 or V2, right VCD or RVH Borderline repol abnrm, inferolateral l corie . Electronically Signed On 03-19-2021 16:4 8:32 EDT by KEYLA CHANDLER Performing Organization Address [facility] P jace Number [facility] RESULT[facility] * Phenobarbital level (03/19/2021 4:14 AM EDT) Phenobarbital 30.3 15.0 - 40.0 ug/ml [facility] Comment: LABORATORIES The above 1 analytes were performed by [facility] [address] [place] [address], ,[place] [address] Specimen Serum or Plasma Performing Organization Address [facility] P jace Number [facility] [address] [place] [address] KAUSHIK OWENS MD * Phenytoin level, total (03/19/2021 4:14 AM EDT) Phenytoin 8.8 (L) 10.0 - 20.0 ug/ml [facility] Comment: LABORATORIES The above 1 analytes were performed by [facility] [address] [place] [address], ,[place] [id number] Specimen Serum or Plasma Performing Organization Address [facility] P jace Number [facility] [address] [place] [address] KAUSHIK OWENS MD * Digoxin level (03/19/2021 4:14 AM EDT) Pathologist [facility] Digoxin 0.80 0.80 - 2.00 ng/ml [facility] Comment: LABORATORIES The above 1 analytes were performed by [facility] [address] [place] [address], ,[place] [id number] Specimen Serum or Plasma Performing Organization Address [facility] P jace Number [facility] [address] [place] [address] KAUSHIK OWENS MD * UPPER GI ENDOSCOPY (03/18/2021 11:16 AM EDT) Specimen Narrative Performed At This result has an attachment that is n ot available. Procedure Note Jad Cota DO - 03/18/2021 11:16 AM EDT [facility] Endoscopy Patient Name: Shaheen Day Date of : 1950 Age: 70 Procedure Date: 03/18/2021 11:00 AM Admit Type: Inpatient Room: Room 1 Gender: Male Procedure: Upper GI endoscopy Indications: Gastrointestinal bleeding of unknown origin Providers: Jad Coat (Doctor) Referring MD: CHETNA ESTRELLA MD, MD (Referring MD) Requesting Provider: Medicines: Monitored Anesthesia Care Complications: No immediate complications. Estimated Blood Loss: Estimated blood loss: none. Procedure: Pre-Anesthesia Assessment: - ASA Grade Assessment: III - A patient with severe systemic disease. The risks, benefits, alternatives, indications and techniques of the procedure have been discussed with the patient today. They have been given an opportunity to ask questions and all their questions have been answered fully and satisfactorily. They are aware of potential risks that include and are not limited to: reaction to anesthesia, dental damage, intestinal perforation,infection including infection from endoscope, and hemorrhage. After obtaining informed consent, the scope was passed under direct vision. Throughout the procedure the patient's blood pressure, pulse, and oxygen saturations were monitored continuously. The gastroscope was introduced through the mouth, and advanced to the second part of duodenum. The upper GI endoscopy was accomplished without difficulty. The patient tolerated the procedure well. Findings: The examined esophagus was normal. Non-severe esophagitis with no bleeding was found at the gastroesophageal junction. Diffuse mildly erythematous mucosa without bleeding was found in the gastric antrum. A few 8 mm sessile polyps with no bleeding were found in the duodenal bulb. Biopsies were taken with a cold forceps for histology. The first portion of the duodenum and second portion of the duodenum were normal. Impression: - Normal esophagus. - Non-severe reflux esophagitis with no bleeding. - Erythematous mucosa in the antrum. - A few duodenal polyps. Biopsied. - Normal first portion of the duodenum and second portion of the duodenum. Recommendation: - Await pathology results. - Perform a colonoscopy tomorrow. Jad Cota, 03/18/2021 11:16:00 AM This report has been signed electronically.Jad Cota Number of Addenda: 0 Note Initiated On: 03/18/2021 11:00 AM * Surgical Pathology (03/18/2021 11:07 AM EDT) Specimen Tissue - Structure of small intestine (body structure) Narrative Performed At [facility] [address] [place] [address] [place] Fax PATHOLOGY CLIA# [id number] Surgical Pathology Report PATIENT: SHAHEEN DAY MR #: [id number] Date Collected: 03/18/2021 Date Received: 03/18/2021 : 1950 Age: 70 y.o. 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 NEGATIVE FOR NEOPLASM. NEGATIVE FOR HELICOBACTER WITH IMMUNOST AIN. CNE/GF Gross Received in formalin, labeled Shaheen funez, biopsy duodenal bulb, consists of a firm wilcox focally red vasc ular glistening polypoid segment of soft tissue that is 0.3 x 0.2 x 0.1 cm. The margin is inked. It is totally submitted in one cassette. AP/kdk Electronically Signed By: Wiliam Gale MD CPT: 93287, [id number] Pathologist I ATTEST THAT THE ABOVE DIAGNOSIS IS BA SED UPON MY PERSONAL MICROSCOPIC EXAMINATION OF THE SLIDES (AND/OR OTHER MATERIAL), AND THAT I HAV E REVIEWED AND APPROVED THIS REPORT. PERFORMED AT: [facility] [address] [place] [address] THE TECHNICAL COMPONENT WAS PERFORMED A T [facility], [address] [place] [address]. EDITOR DEPARTMENT: BETTY OWENS M.D. CLIA# [id number]. SHAHEEN DAY Page 1 of 1 Performing Organization Address City/State/ZIP Code P jace Number [facility] [address] [place] [address] KAUSHIK OWENS MD * Manual Differential (03/18/2021 5:00 AM EDT) Pathologist [facility] Neutrophils 69 40 - 74 % HS LAB[facility]ATORIES Band 0 0 - 10 % MV Neutrophils [facility] Lymphocytes 26 19 - 48 % [facility] Atypical 1 0 - 3 % [facility] Lymphocytes [facility] Monocytes 0 (L) 3 - 9 % [facility] Eosinophils 4 0 - 7 % [facility] Basophils 0 0 - 2 % [facility] Abs. 15.17 (H) 1.92 - 8.31 x1000/ul [facility] Neutrophils [facility] Abs. 5.94 (H) 1.20 - 3.70 x1000/ul [facility] Lymphocytes [facility] Abs. Monocytes 0.00 (L) 0.14 - 0.97 x1000/ul [facility] Abs. 0.88 (H) 0.00 - 0.76 x1000/ul [facility] Eosinophils LAB[facility]ATOR[facility] Abs. Basophils 0.00 0.00 - 0.22 x1000/ul [facility] RBC Morphology \\Normal based on slide scan [facility] Smudge Cells \\Present [facility] Platelet Automated platelet count [facility] Estimate confirmed by slide scan LABORATORIES Comment: The above 15 analytes were performed by [facility] [address] [place] [address],[id number],[place] [address] Specimen Whole Blood Performing Organization Address [facility] P jace Number [facility] [address] [place] [address] KAUSHIK OWENS MD * Basic metabolic panel (03/18/2021 5:00 AM EDT) [facility] Blood Urea 12 7 - 18 mg/dl [facility] Nitrogen LABORATORIES Creatinine 0.77 0.67 - 1.17 mg/dl [facility] Comment: LABORATORIES N-Acetylcysteine (NAC) and Metamizole have the potential to falsely depress Creatinine results. Baseline values before medication adminstration are recommended. Patients undergoing treatment with phenindione will have falsely depressed results. Patients on phenindione therapy should be tested with an alternative CREA method. Toxic levels of acetaminophen may lead to falsely depressed results for patient samples. Glomerular >90.00 mL/min/1.73m2 [facility] Filtration Rate Comment: LABORATORIES GFR Reference Ranges: Normal Function or Mild Renal Disease,if clinically at risk: >or= 60 Moderately decreased: 30 - 59 Severely decreased: 15 - 29 Renal Failure: <15 Please note that the MDRD equation requires an additional adjustment for -Americans (multiply the GFR result by 1.210). Glomarular Filtration Rate (GFR) is estimated based on the MDRD equation, which assumes a steady state for creatinine (Briseida Int Med 139/2 137-149, 2003), as recommended by the National Kidney Disease Education Program in conjunction with the National Institutes of Health and the National Kidney Foundation. The [place] method used in calculating this result is traceable to IDMS standards. Glucose 84 70 - 110 mg/dl [facility] Comment: LABORATORIES Sulfasalazine has the potential to falsely depress Glucose results. Sulfapyridine has the potential to falsely elevate Glucose results. Baseline values before medication administration are recommended. Calcium 8.4 (L) 8.5 - 10.1 mg/dl [facility] Sodium 138 136 - 145 mEq/L [facility] Potassium 4.1 3.5 - 5.1 mEq/L [facility] Chloride 110.0 (H) 98.0 - 107.0 mEq/L [facility] Anion Gap 7.3 [facility] Carbon Dioxide 24.8 21.0 - 32.0 mMol/L [facility] Comment: LABORATORIES The above 10 analytes were performed by [facility] [address] [place] [address],[facility] [id number],[place] [address] Specimen Serum or Plasma Performing Organization Address City/State/ZIP Code P jace Number [facility] [address] [place] [address] KAUSHIK OWENS MD * CBC and differential (03/18/2021 5:00 AM EDT) WBC 21.99 (H) 4.80 - 10.00 [facility] x1000/ul LABORATORIES RBC 3.97 (L) 4.70 - 6.10 x1Mil/ul [facility] Hemoglobin 12.8 (L) 14.0 - 18.0 g/dl [facility] Hematocrit 38.7 (L) 42.0 - 52.0 % [facility] MCV 97.5 (H) 80.0 - 94.0 fL [facility] MCH 32.2 (H) 27.0 - 31.0 pg [facility] MCHC 33.1 32.2 - 37.0 g/dl [facility] RDW 13.3 11.5 - 14.5 % [facility] Platelet Count 143 130 - 400 x1000/ul [facility] MPV 10.4 9.4 - 12.4 fL [facility] Nucleated RBCs 0.00 0.00 - 0.20 % [facility] Abs. Nucleated 0.00 0.00 - 0.02 x1000/ul [facility] RBCs Comment: LABORATORIES The above 12 analytes were performed by [facility] [address] [place] [address]# [id number],[place] [address] Specimen Whole Blood Performing Organization Address City/State/ZIP Code P jace Number [facility] [address] [place] [address] KAUSHIK OWENS MD * Prothrombin time INR no therapy or unknown (03/18/2021 5:00 AM EDT) PT, No Coag 14.7 (H) 10.2 - 12.9 Seconds [facility] Tx/Coag Tx Unk Comment: LABORATORIES Attention: Effeciive 11/16/2019 The normal range for PT (No Coag) has changed: Previous normal range: 10.0-11.4 New normal range: 10.2-12.9 PT referenence range reflects values for patients not on anticoagulant therapy. Discrepant results may occur due to anticoagulant effects such as coumadin, direct thrombin inhibitors; argatroban (Acova), bivalirudin (Angiomax) or dabigatran (Pradaxa) or direct factor Xa inhibitors; rivaroxaban (Xarelto), apixaban (Eliquis) and edoxaban (Savaysa). INR (No Coag 1.3 (H) 0.9 - 1.1 [facility] Tx/Coag Tx Unk) Comment: LABORATORIES Suggested therapeutic INR ranges for oral anticoagulant therapy: Indication: INR Prevention and treatment of DVT and PE 2.0 - 3.0 Prevention of systemic embolism with atrial fib., acute [place] and 2.0 - 3.0 tissue prosthetic heart valves. Prevention of systemic embolism in patients with mechanical heart 2.5 - 3.5 valves. NOTE: The INR is only valid for patients on stable oral anticoagulant therapy. __ The above 2 analytes were performed by [facility] [address] [facility], ,[place] [address] Specimen Plasma Performing Organization Address City/State/ZIP Code P jace Number [facility] [address] [place] [address] KAUSHIK OWENS MD * Prothrombin time INR on therapy (03/17/2021 11:43 AM EDT) PT,Patient (on 18.1 Seconds [facility] Anticoag. Comment: LABORATORIES Therapy) Attention: Effeciive 11/16/2019 The normal range for PT (on Anticoagulant Therapy) has changed: Previous normal range: 10.1-11.3 New normal range: None Discrepant results may occur due to anticoagulant effects such as coumadin, direct thrombin inhibitors; argatroban (Acova), bivalirudin (Angiomax) or dabigatran (Pradaxa) or direct factor Xa inhibitors; rivaroxaban (Xarelto), apixaban (Eliquis) and edoxaban (Savaysa). INR (on 1.6 (L) 2.0 - 3.5 [facility] Anticoagulant Comment: LABORATORIES Therapy) Suggested therapeutic INR ranges for oral anticoagulant therapy: Indication: INR Prevention and treatment of DVT and PE 2.0 - 3.0 Prevention of systemic embolism with atrial fib., acute [place] and 2.0 - 3.0 tissue prosthetic heart valves. Prevention of systemic embolism in patients with mechanical heart 2.5 - 3.5 valves. NOTE: The INR is only valid for patients on stable oral anticoagulant therapy. __ The above 2 analytes were performed by [facility] [address], ,[place] [address] Specimen Plasma Performing Organization Address [facility] P jace Number [facility] [address] [place] [address] KAUSHIK OWENS MD * Hematocrit (03/17/2021 11:43 AM EDT) Hematocrit 38.3 (L) 42.0 - 52.0 % [facility] Comment: LABORATORIES The above 1 analytes were performed by [facility] [address] [place], [place] [address], ,[place] [address] Specimen Whole Blood Performing Organization Address [facility] P jace Number [facility] [address] [place] [address] KAUSHIK OWENS MD * Hemoglobin (03/17/2021 11:43 AM EDT) Hemoglobin 12.6 (L) 14.0 - 18.0 g/dl [facility] Comment: LABORATORIES The above 1 analytes were performed by [facility] [address] [place] [address], ,[place] [address] Specimen Whole Blood Performing Organization Address [facility] P jace Number [facility] [address] [place] [phone] KAUSHIK OWENS MD * PATHOLOGIST REVIEW: HEMATOLOGY (03/17/2021 4:40 AM EDT) Pathologist [id number] [facility] Review LABORATORIES Pathologist Absolute lymphocytosis [facility] Review (6,850/ul), neutrophilia with LABORAT ORIES left shift and Pathologist macrocytic anemia. Recommend [facility] Review flow cytometry to rule out a LABORATO ESTHELA low grade Pathologist lymphoproliferative disorder. [facility] Review Rule out B12/folate LABORATORIES deficiency. Pathologist Correlation with clinical [facility] Review findings is recommended. LABORATORIES Reviewed by Emiliano Pathologist Jose Sena MD. on 03/18/2021 [facility] Review Comment: LABORATORIES The above 1 analytes were performed by [facility] [address], ,[place] [address] Specimen Whole Blood Performing Organization Address [facility] P jace Number [facility] [address] [place] [address] KAUSHIK OWENS MD * Manual Differential (03/17/2021 4:40 AM EDT) Neutrophils 59 40 - 74 % [facility] Band 0 0 - 10 % [facility] Neutrophils [facility] Lymphocytes 31 19 - 48 % [facility] Atypical 1 0 - 3 % [facility] Lymphocytes [facility] Monocytes 5 3 - 9 % [facility] Eosinophils 2 0 - 7 % [facility] Basophils 0 0 - 2 % [facility] Myelocytes 1 (H) 0 - 0 % [facility] Promyelocytes 1 (H) 0 - 0 % [facility] Abs. 12.64 (H) 1.92 - 8.31 x1000/ul [facility] Neutrophils [facility] Abs. 6.85 (H) 1.20 - 3.70 x1000/ul [facility] Lymphocytes [facility] Abs. Monocytes 1.07 (H) 0.14 - 0.97 x1000/ul [facility] Abs. 0.43 0.00 - 0.76 x1000/ul [facility] Eosinophils [facility] Abs. Basophils 0.00 0.00 - 0.22 x1000/ul [facility] Abs. Myelocytes 0.21 (H) 0.00 - 0.00 x1000/ul [facility] Abs. 0.21 (H) 0.00 - 0.00 x1000/ul [facility] Promyelocytes LAB[facility]ATORIES RBC Morphology \\Normal based on slide scan [facility] Smudge Cells \\Present [facility] Platelet Automated platelet count [facility] Estimate confirmed by slide scan LABORATORIES Comment: The above 19 analytes were performed by [facility] [address], ,[place] [id number] Specimen Whole Blood Performing Organization Address [facility] P jace Number [facility] [address] [place] [address] KAUSHIK OWENS MD * Protime - INR (03/17/2021 4:40 AM EDT) PT, No Coag 23.3 (H) 10.2 - 12.9 Seconds [facility] Tx/Coag Tx Unk Comment: LABORATORIES Attention: Effeciive 11/16/2019 The normal range for PT (No Coag) has changed: Previous normal range: 10.0-11.4 New normal range: 10.2-12.9 PT referenence range reflects values for patients not on anticoagulant therapy. Discrepant results may occur due to anticoagulant effects such as coumadin, direct thrombin inhibitors; argatroban (Acova), bivalirudin (Angiomax) or dabigatran (Pradaxa) or direct factor Xa inhibitors; rivaroxaban (Xarelto), apixaban (Eliquis) and edoxaban (Savaysa). INR (No Coag 2.1 (H) 0.9 - 1.1 [facility] Tx/Coag Tx Unk) Comment: LABORATORIES Suggested therapeutic INR ranges for oral anticoagulant therapy: Indication: INR Prevention and treatment of DVT and PE 2.0 - 3.0 Prevention of systemic embolism with atrial fib., acute [place] and 2.0 - 3.0 tissue prosthetic heart valves. Prevention of systemic embolism in patients with mechanical heart 2.5 - 3.5 valves. NOTE: The INR is only valid for patients on stable oral anticoagulant therapy. __ The above 2 analytes were performed by [facility] [address] [place] [address], ,[place] [address] Specimen Plasma Performing Organization Address City/State/ZIP Code P jace Number [facility] [address] [place] [address] KAUSHIK OWENS MD * CBC and differential (03/17/2021 4:40 AM EDT) WBC 21.42 (H) 4.80 - 10.00 [facility] x1000/ul LABORATORIES RBC 3.94 (L) 4.70 - 6.10 x1Mil/ul [facility] Hemoglobin 12.8 (L) 14.0 - 18.0 g/dl [facility] Hematocrit 38.5 (L) 42.0 - 52.0 % [facility] MCV 97.7 (H) 80.0 - 94.0 fL [facility] MCH 32.5 (H) 27.0 - 31.0 pg [facility] MCHC 33.2 32.2 - 37.0 g/dl [facility] RDW 13.5 11.5 - 14.5 % [facility] Platelet Count 151 130 - 400 x1000/ul [facility] MPV 10.6 9.4 - 12.4 fL [facility] Nucleated RBCs 0.00 0.00 - 0.20 % [facility] Abs. Nucleated 0.00 0.00 - 0.02 x1000/ul [facility] RBCs Comment: LABORATORIES The above 12 analytes were performed by [facility] [address] [place] [address], ,[place] [address] Specimen Whole Blood Performing Organization Address City/State/ZIP Code P jace Number [facility] [address] [place] [address] KAUSHIK OWENS MD * CMP (03/17/2021 4:40 AM EDT) AST 34 15 - 37 IU/L [facility] Comment: LABORATORIES Sulfasalazine and sulfapyridine have the potential to falsely depress Aspartate Aminotransferase results. Baseline values before medication administration are recommended. ALT 27 16 - 61 IU/L [facility] Comment: LABORATORIES Sulfasalazine and sulfapyridine have the potential to falsely depress Alanine Aminotransferase results. Baseline values before medication administration are recommended. Alkaline 142 (H) 50 - 136 mIU/ml [facility] Phosphatase LABORATORIES Total Bilirubin 0.50 0.20 - 1.00 mg/dl [facility] Blood Urea 13 7 - 18 mg/dl [facility] Nitrogen LABORATORIES Creatinine 0.76 0.67 - 1.17 mg/dl [facility] Comment: LABORATORIES N-Acetylcysteine (NAC) and Metamizole have the potential to falsely depress Creatinine results. Baseline values before medication adminstration are recommended. Patients undergoing treatment with phenindione will have falsely depressed results. Patients on phenindione therapy should be tested with an alternative CREA method. Toxic levels of acetaminophen may lead to falsely depressed results for patient samples. Glomerular >90.00 mL/min/1.73m2 [facility] Filtration Rate Comment: LABORATORIES GFR Reference Ranges: Normal Function or Mild Renal Disease,if clinically at risk: >or= 60 Moderately decreased: 30 - 59 Severely decreased: 15 - 29 Renal Failure: <15 Please note that the MDRD equation requires an additional adjustment for -Americans (multiply the GFR result by 1.210). Glomarular Filtration Rate (GFR) is estimated based on the MDRD equation, which assumes a steady state for creatinine (Briseida Int Med 139/2 137-149, 2002), as recommended by the National Kidney Disease Education Program in conjunction with the National Institutes of Health and the National Kidney Foundation. The [place] method used in calculating this result is traceable to IDMS standards. Glucose 91 70 - 110 mg/dl [facility] Comment: LABORATORIES Sulfasalazine has the potential to falsely depress Glucose results. Sulfapyridine has the potential to falsely elevate Glucose results. Baseline values before medication administration are recommended. Calcium 8.3 (L) 8.5 - 10.1 mg/dl [facility] Total Protein 6.2 (L) 6.4 - 8.2 g/dl [facility] Albumin 2.8 (L) 3.4 - 5.0 g/dl [facility] Sodium 140 136 - 145 mEq/L [facility] Potassium 4.1 3.5 - 5.1 mEq/L [facility] Chloride 110.0 (H) 98.0 - 107.0 mEq/L [facility] Anion Gap 9.7 [facility] Carbon Dioxide 24.4 21.0 - 32.0 mMol/L [facility] Comment: LABORATORIES The above 16 analytes were performed by [facility] [address] [place] [address] [address], ,[place] [address] Specimen Serum or Plasma Performing Organization Address City/State/ZIP Code P jace Number [facility] [address] [place] [address] KAUSHIK OWENS MD * Hematocrit (03/17/2021 4:40 AM EDT) Hematocrit 38.9 (L) 42.0 - 52.0 % [facility] Comment: LABORATORIES The above 1 analytes were performed by [facility] [address] [place] [address], ,[place] [address] Specimen Whole Blood Performing Organization Address [facility] P jace Number [facility] [address] [place] [phone] KAUSHIK OWENS MD * Hemoglobin (03/17/2021 4:40 AM EDT) Hemoglobin 12.8 (L) 14.0 - 18.0 g/dl [facility] Comment: LABORATORIES The above 1 analytes were performed by [facility] [address] [place] [address], ,[place] [address] Specimen Whole Blood Performing Organization Address [facility] P jace Number [facility] [address] [place] [address] KAUSHIK OWENS MD * Hematocrit (03/16/2021 11:38 PM EDT) Hematocrit 39.9 (L) 42.0 - 52.0 % [facility] Comment: LABORATORIES The above 1 analytes were performed by [facility] [address] [place] [address], [place] [address] Specimen Whole Blood Performing Organization Address [facility] P jace Number [facility] [address] [place] [phone] KAUSHIK OWENS MD * Hemoglobin (03/16/2021 11:38 PM EDT) Hemoglobin 13.4 (L) 14.0 - 18.0 g/dl [facility] Comment: LABORATORIES The above 1 analytes were performed by [facility] [address] [place] [address], ,[place] [address] Specimen Whole Blood Performing Organization Address [facility] P jace Number [facility] [address] [place] [phone] KAUSHIK OWENS MD documented in this encounter Visit Diagnoses Diagnosis GI bleed - Primary Unspecified, hemorrhage of gastrointest inal tract Benign essential HTN Melena Blood in stool BRBPR (bright red blood per rectum) Hemorrhage of rectum and anus 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 Permanent atrial fibrillation (CMS/HCC) Atrial fibrillation Seizure (CMS/HCC) Other convulsions Essential hypertension Unspecified essential hypertension H/O heart valve replacement with biopro sthetic valve History of heart valve replacement with porcine valve Chronic anticoagulation Encounter for long-term (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 o f a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 Rheumatic fever Rheumatic fever without mention of hear t involvement Colonic mass Adenocarcinoma, colon (CMS/HCC) Malignant neoplasm of colon, unspecifie d site documented in this encounter Administered Medications Action Date Dose Rate Site Medication Order MAR Action acetaminophen (TYLENOL) 160 mg/5 mL solution 640 mg 640 mg (rounded from 650 mg), oral, Every 4 hours PRN, mild pain, Starting on 03/16/21 at 2215, Give oral liqui d if patient prefers or per feeding tube if present. If inadequate response within 60 minutes, proceed to next-line agent for same PRN reason or contact provider if no further options ordered. acetaminophen (TYLENOL) suppository 650 mg 650 mg, rectal, Every 4 hours PRN, mild pain, Starting on 03/16/21 at 2215, Give TN if unable to administer by mout h or feeding tube. If inadequate response within 60 minutes, proceed to next-line agent for same PRN reason or contact provider if no further options ordered. 03/19/2021 5:24 PM EDT 650 mg acetaminophen (TYLENOL) tablet 650 mg Given 650 mg, oral, Every 4 hours PRN, mild pain, Starting on 03/16/21 at 2215, If inadequate response within 60 minutes, proceed to next-line agent for same PRN reason or contact provider if no further options ordered. 650 mg Given 03/17/2021 5:37 PM EDT 650 mg Given 03/17/2021 1:31 AM EDT 03/20/2021 8:28 AM EDT 2.5 mg amLODIPine (NORVASC) tablet 2.5 mg Given 2.5 mg, oral, Daily, First dose on 03/17/21 at 0900 2.5 mg Given 03/19/2021 8:12 AM EDT 2.5 mg Given 03/18/2021 12:19 PM EDT 03/20/2021 8:29 AM EDT 1,000 mg ascorbic acid (VITAMIN C) tablet 1,000 Given mg 1,000 mg, oral, Daily, First dose on [place] 03/17/21 at 0900 1,000 mg Given 03/19/2021 8:11 AM EDT 1,000 mg Given 03/18/2021 12:20 PM EDT 03/19/2021 5:24 PM EDT 250 mcg digoxin (LANOXIN) tablet 250 mcg Given 250 mcg, oral, Every evening, First dos e on 03/16/21 at 2230, Hold dose if potassium < 3.5 and/or digoxin level > 2.0 and notify the provider. 250 mcg Given 03/18/2021 5:07 PM EDT 250 mcg Given 03/17/2021 5:34 PM EDT 03/20/2021 8:12 AM EDT 100 mg PE 100 mL/hr fosphenytoin (CEREBYX) 100 mg PE in Given sodium chloride 0.9% 50 mL IVPB 100 mg PE, intravenous, at 100 mL/hr, Administer over 30 Minutes, 3 times daily, First dose on 03/18/21 at 0900, Recommended infusion rate: 50 mg PE/min. Maximum rate: 150 mg PE/min. Publish2 Cat 2 - follow Safe Handling Precautions when administering ; Refer to Pharmacy Resources on hospital intranet page for additional info. 100 mg PE 100 mL/hr Given 03/19/2021 10:04 PM EDT 100 mg PE 100 mL/hr Given 03/19/2021 5:00 PM EDT 03/19/2021 12:29 PM EDT lactated Ringer's infusion New Bag 100 mL/hr, intravenous, at 100 mL/hr, Continuous, Starting on Thu03/19/21 at 0500, Anesthesia pre-procedure order New Bag 03/19/2021 12:28 PM EDT 100 mL/hr 100 mL/hr New Bag 03/19/2021 6:17 AM EDT 03/20/2021 8:28 AM EDT 50 mg metoprolol tartrate (LOPRESSOR) tablet Given 50 mg 50 mg, oral, 2 times daily, First dose on 9/25/21 at 2230 50 mg Given 03/19/2021 10:07 PM EDT 50 mg Given 03/19/2021 8:12 AM EDT 03/20/2021 8:28 AM EDT 1 tablet multivitamin (THERAGRAN) tablet 1 tablet Given 1 tablet, oral, Daily, First dose on [place] 03/17/21 at 0900 1 tablet Given 03/19/2021 8:12 AM EDT 1 tablet Given 03/18/2021 12:19 PM EDT ondansetron (ZOFRAN) injection 4 mg 4 mg, intravenous, Every 6 hours PRN, nausea, vomiting, Starting on 03/16/21 at 2216, 1st Line. Give IV if patient is unable to take orally. If inadequate response within 60 minutes, proceed to next-line agent or contact provider if no further options ordered. ondansetron (ZOFRAN-ODT) dispersible tablet 4 mg 4 mg, oral, Every 6 hours PRN, nausea, vomiting, Starting on 03/16/21 at 2216, 1st Line. If inadequate response within 60 minutes, proceed to next-line agent or contact provider if no further options ordered. Patient should allow tablet to dissolve on tongue. Do not remove from blister pack until just before administering. 03/20/2021 8:30 AM EDT 40 mg pantoprazole (PROTONIX) injection 40 mg Given 40 mg, intravenous, Administer over 2 Minutes, Every 12 hours scheduled, Firs t dose on Thu03/18/21 at 2100 40 mg Given 03/19/2021 10:06 PM EDT 40 mg Given 03/19/2021 8:13 AM EDT 03/20/2021 8:30 AM EDT 64.8 mg PHENobarbital injection 64.8 mg Given 64.8 mg, intravenous, 2 times daily, First dose on Thu03/18/21 at 0900 64.8 mg Given 03/19/2021 10:07 PM EDT 64.8 mg Given 03/19/2021 9:00 AM EDT Action Date Dose Rate Site Medication Order MAR Action 03/18/2021 4:15 PM EDT 10 mg bisacodyL (DULCOLAX) EC tablet 10 mg Given 10 mg, oral, Once, On Thu03/18/21 at 1400, 1 dose, Take with 8 ounces of clear liquid. Do not crush, chew, or split. 03/18/2021 5:58 PM EDT 10 mg bisacodyL (DULCOLAX) EC tablet 10 mg Given 10 mg, oral, Once, On 03/18/21 at 1730, 1 dose, Take with 8 ounces of clear liquid. Do not crush, chew, or split. 03/19/2021 7:43 PM EDT 25 mL iohexoL (OMNIPAQUE) 240 mg iodine/mL 25 Given mL 25 mL, oral, STAT prior to imaging when contrast delivered, Starting on Thu03/19/21 at 1943, 1 dose, Patient has 30 minutes to finish once started 03/19/2021 7:43 PM EDT 100 mL iopamidoL (ISOVUE-300) 61 % injection Given 100 mL 100 mL, intravenous, Once in imaging, Starting on Thu03/19/21 at 1941, 1 dose 03/18/2021 1:00 AM EDT 8 mg/hr 10 mL/hr pantoprazole (PROTONIX) 80 mg in sodium New Bag chloride 0.9% 100 mL (0.8 mg/mL) infusion 8 mg/hr (10 mL/hr), intravenous, at 10 mL/hr, Continuous, Starting on 03/16/21 at 2230, refrigerate until use 8 mg/hr 10 mL/hr New Bag 03/17/2021 11:00 AM EDT 8 mg/hr 10 mL/hr New Bag 03/17/2021 12:52 AM EDT 03/17/2021 12:13 AM EDT 80 mg 200 mL/hr pantoprazole (PROTONIX) 80 mg in sodium New Bag chloride 0.9% 100 mL IVPB 80 mg, intravenous, at 200 mL/hr, Administer over 30 Minutes, Once, On Sa t 03/16/21 at 2230, 1 dose 03/17/2021 9:06 PM EDT 64.8 mg PHENobarbitaL (LUMINAL) tablet 64.8 mg Given 64.8 mg, oral, 2 times daily, First dos e on 03/16/21 at 2230, 3 doses, Phenobarbital 30 mg tab is therapeutically equivalent to 32.4 mg tab. 64.8 mg Given 03/17/2021 10:17 AM EDT 64.8 mg Given 03/17/2021 1:29 AM EDT 03/17/2021 9:07 PM EDT 100 mg phenytoin (DILANTIN) ER capsule 100 mg Given 100 mg, oral, 3 times daily, First dose on 03/16/21 at 2230, 4 doses, Hold enteral nutrition at least 1 hour befor e and 2 hours after dose. Monitor drug levels. NIOSH Cat 2 - follow Safe Handling Precautions when administering ; Refer to Pharmacy Resources on hospital intranet page for additional info. 100 mg Given 03/17/2021 5:34 PM EDT 100 mg Given 03/17/2021 10:17 AM EDT 03/16/2021 11:48 PM EDT 10 mg 300 mL/hr phytonadione (VITAMIN K) 10 mg in sodium New Bag chloride 0.9% 50 mL IVPB 10 mg, intravenous, at 300 mL/hr, Administer over 10 Minutes, Once, On Sa t 03/16/21 at 2230, 1 dose 03/18/2021 5:31 PM EDT 238 g polyethylene glycol (GLYCOLAX) powder Given 238 g 238 g, oral, Once, On 03/18/21 at 1530, 1 dose, Add to 64 ounces of Gatorade (not red). Shake well. Drink 8 ounces every 10-15 minutes, finish all. documented in this encounter Active and Recently Administered Medications Times are shown in EDT. 03/19/2021 03/20/2021 Medication Order 03/18/2021 0812 (Given - Provider: Talisha Weinstein RN )1025 (AUG Hold - Provider: Automatic Transfer Provider - Reason: Unreviewed Transfer Orders)1435 (AUG Unhold - Provider: Talisha Weinstein RN) 0828 (Given - Provider: Sherice Reece RN) amLODIPine (NORVASC) tablet 2.5 mg 1020 (AUG Hold - 2.5 mg, oral, Daily, First dose on Sun Provider: Ronaldo warren 03/17/21 at 0900 Transfer Provider - Reason: Unreviewed Transfer Orders)1208 (MAR Unhold - Provider: Talisha Weinstein RN)1219 (Given - Provider: Talisha Weinstein RN) 0811 (Given - Provider: Talisha Weinstein RN )1025 (AUG Hold - Provider: Automatic Transfer Provider - Reason: Unreviewed Transfer Orders)1435 ([facility] Unhold - Provider: Talisha Weinstein RN) 0829 (Given - Provider: Sherice Reece RN) ascorbic acid (VITAMIN C) tablet 1,000 1020 (AUG Hol d - mg Provider: Automatic 1,000 mg, oral, Daily, First dose on Sun Transfer Pr ovider - 03/17/21 at 0900 Reason: Unreviewed Transfer Orders)1208 ([facility] Unhold - Provider: Talisha Weinstein RN)1220 (Given - Provider: Talisha Weinstein RN) 0900 (Dose Auto Held - Provider: Trent Dai MD) 0900 (Dose Auto Held - Provider: Trent Dai MD) aspirin EC tablet 81 mg 0900 (Dose Auto Held 81 mg, oral, Daily, First dose on Sun - Provider: Sa esposito 03/17/21 at 0900 MD Malaika) bisacodyL (DULCOLAX) EC tablet 10 mg 1615 (Given - (COMPLETED) Provider: Talisha 10 mg, oral, Once, On 03/18/21 at [place], MIGUEL ANGEL) 1400, 1 dose, Take with 8 ounces of clear liquid. Do not crush, chew, or split. bisacodyL (DULCOLAX) EC tablet 10 mg 1758 (Given - (COMPLETED) Provider: Talisha 10 mg, oral, Once, On 03/18/21 at MIGUEL ANGEL Weinstein) 1730, 1 dose, Take with 8 ounces of clear liquid. Do not crush, chew, or split. 1025 ([facility] Hold - Provider: Automatic Tra nsfer Provider - Reason: Unreviewed Transfer Orders)1435 ([facility] Unhold - Provider: Talisha Weinstein RN)1724 (Given - Provider: Dianna Crystal RN) 1700 (Due - Provider: Talisha Weinstein RN) digoxin (LANOXIN) tablet 250 mcg 1020 (AUG Hold - 250 mcg, oral, Every evening, First dose Provider: Zunilda shea on 03/16/21 at 2230, Hold dose if Transfer Provid er - potassium < 3.5 and/or digoxin level > Reason: Unrev iewed 2.0 and notify the provider. Transfer Orders)1208 ([facility] Unhold - Provider: Talisha Weinstein RN)1707 (Given - Provider: Talisha Weinstein RN) 0813 (Given - Provider: Talisha Weinstein RN )1025 (MAR Hold - Provider: Automatic Transfer Provider - Reason: Unreviewed Transfer Orders)1435 (MAR Unhold - Provider: Talisha Weinstein RN)1700 (Given - Provider: Dianna Crystal RN)1900 (Canceled Entry - Provider: Cristal Guido RN)2204 (Given - Provider: Cristal Guido RN) 0812 (Given - Provider: Sherice Reece RN)1600 (Due - Provider: Talisha Weinstein RN)2100 (Due - Provider: Talisha Weinstein RN) fosphenytoin (CEREBYX) 100 mg PE in 1020 (AUG Hold - sodium chloride 0.9% 50 mL IVPB Provider: Automatic 100 mg PE, intravenous, at 100 mL/hr, Transfer Provi filemon - Administer over 30 Minutes, 3 times Reason: Unreview ed daily, First dose on Thu03/18/21 at Transfer Orders) 1208 0900, Recommended infusion rate: 50 mg (MAR Unhold - PE/min. Maximum rate: 150 mg PE/min. Provider: Talisha HAYWARD Cat 2 - follow Safe Handling MIGUEL ANGEL Weinstein)1235 Precautions when administering ; Refer (Given - Prov ider: to Pharmacy Resources on [facility] Talisha Weinstein, intranet page for additional info. RN)1704 (Given - Provider: Talisha Weinstein RN)2030 (Given - Provider: Cristal Guido RN) 194 (Given - Provider: Brennen huerta, RTR) iohexoL (OMNIPAQUE) 240 mg iodine/mL 25 mL (COMPLETED) 25 mL, oral, STAT prior to imaging when contrast delivered, Starting on Thu03/19/21 at 1943, 1 dose, Patient has 30 minutes to finish once started 1942 (Given - Provider: Brennen huerta, RTR) iopamidoL (ISOVUE-300) 61 % injection 100 mL (COMPLETED) 100 mL, intravenous, Once in imaging, Starting on Thu03/19/21 at 1941, 1 dose 0812 (Given - Provider: Talisha Weinstein RN )1025 (MAR Hold - Provider: Automatic Transfer Provider - Reason: Unreviewed Transfer Orders)1435 ([facility] Unhold - Provider: Talisha Weinstein, MIGUEL ANGEL)2207 (Given - Provider: Cristal Guido, RN) 0828 (Given - Provider: Sherice Reece , MIGUEL ANGEL)2100 (Due - Provider: Talisha Weinstein RN) metoprolol tartrate (LOPRESSOR) tablet 1020 (AUG Hol d - 50 mg Provider: Automatic 50 mg, oral, 2 times daily, First dose Transfer Prov ider - on 03/16/21 at 2230 Reason: Unreviewed Transfer Orders)1208 ([facility] Unhold - Provider: Talisha Weinstein RN)1219 (Given - Provider: Talisha Weinstein RN)2032 (Given - Provider: Cristal Guido RN) 0812 (Given - Provider: Talisha Weinstein RN )1025 ([facility] Hold - Provider: Automatic Transfer Provider - Reason: Unreviewed Transfer Orders)1435 ([facility] Unhold - Provider: Talisha Weinstein RN) 0828 (Given - Provider: Sherice Reece RN) multivitamin (THERAGRAN) tablet 1 tablet 1020 ([facility] H old - 1 tablet, oral, Daily, First dose on Sun Provider: Zunilda utomatic 03/17/21 at 0900 Transfer Provider - Reason: Unreviewed Transfer Orders)1208 ([facility] Unhold - Provider: Talisha Weinstein RN)1219 (Given - Provider: Talisha Weinstein RN) 0813 (Given - Provider: Talisha Weinstein RN )1025 ([facility] Hold - Provider: Automatic Transfer Provider - Reason: Unreviewed Transfer Orders)1435 ([facility] Unhold - Provider: Talisha Weinstein RN)2206 (Given - Provider: Cristal Guido, MIGUEL ANGEL) 0830 (Given - Provider: Sherice Reece , MIGUEL ANGEL)2100 (Due - Provider: Talisha Weinstein, MIGUEL ANGEL) pantoprazole (PROTONIX) injection 40 mg 2040 (Given - 40 mg, intravenous, Administer over 2 Provider: Elida Renee, Every 12 hours scheduled, First Hay RN) dose on 03/18/21 at 2100 0900 (Given - Provider: Talisha Weinstein RN )1025 ([facility] Hold - Provider: Automatic Transfer Provider - Reason: Unreviewed Transfer Orders)1435 ([facility] Unhold - Provider: Talisha Weinstein MIGUEL ANGEL)2207 (Given - Provider: Cristal Guido, MIGUEL ANGEL) 0830 (Given - Provider: Sherice Reece , MIGUEL ANGEL)2100 (Due - Provider: Talisha Weinstein RN) PHENobarbital injection 64.8 mg 0900 (Given - 64.8 mg, intravenous, 2 times daily, Provider: Talisha First dose on Thu03/18/21 at 0900 [place], MIGUEL ANGEL)1020 (M AR Hold - Provider: Automatic Transfer Provider - Reason: Unreviewed Transfer Orders)1208 (MAR Unhold - Provider: Talisha Weinstein, MIGUEL ANGEL)2048 (Given - Provider: Cristal Guido, MIGUEL ANGEL) polyethylene glycol (GLYCOLAX) powder 1731 (Given - 238 g (COMPLETED) Provider: Talisha 238 g, oral, Once, On Thu03/18/21 at [place]inna, RN) 1530, 1 dose, Add to 64 ounces of Gatorade (not red). Shake well. Drink 8 ounces every 10-15 minutes, finish all. 0900 (Dose Auto Held - Provider: Trent Dai MD) 0900 (Dose Auto Held - Provider: Trent Dai MD) spironolactone (ALDACTONE) tablet 12.5 0900 (Dose Au to Held mg - Provider: Trent 12.5 mg, oral, Daily, First dose on [place] MD Malaika) 03/17/21 at 0900 1700 (Dose Auto Held) 1700 (Dose Auto Held) warfarin (COUMADIN) tablet 6 mg 1700 (Dose Auto 6 mg, oral, User specified (Once per day Held) on Thu), First dose on Thu03/18/21 at 1700, 5 days a week NIOS H Cat 3 - follow Safe Handling Precaution s when administering ; Refer to Pharmacy Resources on hospital intranet page for additional info. warfarin (COUMADIN) tablet 7 mg 7 mg, oral, User specified (Once per da y on Thu Sat), First dose on [place] 03/17/21 at 1700, 2 days a week NIOSH Cat 3 - follow Safe Handling Precautions when administering ; Refer to Pharmacy Resources on hospital intranet page for additional info. 03/19/2021 03/20/2021 Medication Order 03/18/2021 0617 (New Bag - Provider: Cristal Guido , MIGUEL ANGEL)1227 (Paused - Provider: Jessica Argueta MD - Comment: Switch to gravity)1228 (New Bag - Provider: Jessica Argueta MD)1228 (Canceled Entry - Provider: Gabriella Valente CRNA - Comment: Switch to gravity)1229 (New Bag - Provider: Gabriella Valente CRNA)1326 (Stopped/Discontinued - Provider: Jessica Argueta MD) lactated Ringer's infusion 100 mL/hr, intravenous, at 100 mL/hr, Continuous, Starting on Thu03/19/21 at 0500, Anesthesia pre-procedure order pantoprazole (PROTONIX) 80 mg in sodium 0059 chloride 0.9% 100 mL (0.8 mg/mL) (Stopped/Discontinu e infusion (CANCELED) d - Provider: Joseline 8 mg/hr (10 mL/hr), intravenous, at [place] Denise RN) 00 (New mL/hr, Continuous, Starting on Thu Bag - Provider: 03/16/21 at 2230, refrigerate until use Joseline Denise RN)1020 (AUG Hold - Provider: Automatic Transfer Provider - Reason: Unreviewed Transfer Orders)1208 (AUG Unhold - Provider: Talisha Weinstein RN) 03/19/2021 03/20/2021 Medication Order 03/18/2021 1025 (AUG Hold - Provider: Automatic Tra nsfer Provider - Reason: Unreviewed Transfer Orders)1435 (AUG Unhold - Provider: Talisha Weinstein RN)1724 (See Alternative - Provider: Dianna Crystal RN) acetaminophen (TYLENOL) 160 mg/5 mL 1020 (AUG Hold - solution 640 mg(Linked Group 1) Provider: Automatic 640 mg (rounded from 650 mg), oral, Transfer Provide r - Every 4 hours PRN, mild pain, Starting Reason: Unrev iewed on 03/16/21 at 2215, Give oral liquid Transfer Or ders)1208 if patient prefers or per feeding tube (MAR Unhold - if present. If inadequate response Provider: Talisha within 60 minutes, proceed to next-line MIGUEL ANGEL Weinstein) agent for same PRN reason or contact provider if no further options ordered. 1025 (AUG Hold - Provider: Automatic Tra nsfer Provider - Reason: Unreviewed Transfer Orders)1435 ([facility] Unhold - Provider: Talisha Weinstein RN)1724 (See Alternative - Provider: Dianna Crystal RN) acetaminophen (TYLENOL) suppository 650 1020 ([facility] Ho ld - mg(Linked Group 1) Provider: Automatic 650 mg, rectal, Every 4 hours PRN, mild Transfer Pro vider - pain, Starting on 03/16/21 at 2215, Reason: Unrev iewed Give TN if unable to administer by mouth Transfer Or ders)1208 or feeding tube. If inadequate response (MAR Unhold - within 60 minutes, proceed to next-line Provider: Em bianca agent for same PRN reason or contact MIGUEL ANGEL Weinstein) provider if no further options ordered. 1025 ([facility] Hold - Provider: Automatic Tra nsfer Provider - Reason: Unreviewed Transfer Orders)1435 ([facility] Unhold - Provider: Talisha Weinstein RN)1724 (Given - Provider: Dianna Crystal RN) acetaminophen (TYLENOL) tablet 650 1020 ([facility] Hold - mg(Linked Group 1) Provider: Automatic 650 mg, oral, Every 4 hours PRN, mild Transfer Provi filemon - pain, Starting on 03/16/21 at 2215, Reason: Unrev iewed If inadequate response within 60 Transfer Orders)120 8 minutes, proceed to next-line agent for (MAR Unhold - same PRN reason or contact provider if Provider: Mayte na no further options ordered. MIGUEL ANGEL Weinstein) 1025 ([facility] Hold - Provider: Automatic Tra nsfer Provider - Reason: Unreviewed Transfer Orders)1435 ([facility] Unhold - Provider: Talisha Weinstein RN) morphine injection 1 mg 1020 ([facility] Hold - 1 mg, intravenous, Every 4 hours PRN, Provider: Auto matic moderate pain, severe pain, Starting on Transfer Pro vider - 03/16/21 at 2216, If inadequate Reason: Unreviewe d response within 60 minutes, proceed to Transfer Orde rs)1208 next-line agent for same PRN reason or (MAR Unhold - contact provider if no further options Provider: Mayte na ordered. MIGUEL ANGEL Weinstein) 1025 ([facility] Hold - Provider: Automatic Tra nsfer Provider - Reason: Unreviewed Transfer Orders)1435 (MAR Unhold - Provider: Talisha Weinstein RN) naloxone (NARCAN) injection 0.1 mg 1020 ([facility] Hold - 0.1 mg, intravenous, As needed, Provider: Automatic respiratory depression, Starting on Sat Transfer Pro vider - 03/16/21 at 2216, If respiratory rate is Reason: Unre viewed less than 8 breaths per minute or Transfer Orders)12 08 patient is difficult to arouse, ([facility] Unhold - administer naloxone slow IV push, stop Provider: Mayte na all narcotics, and contact physician. MIGUEL ANGEL Weinstein) Repeat as ordered every 2-3 minutes until patient's respiratory rate is greater than 12 breaths per minute. 1025 ([facility] Hold - Provider: Automatic Tra nsfer Provider - Reason: Unreviewed Transfer Orders)1435 ([facility] Unhold - Provider: Talisha Weinstein RN) ondansetron (ZOFRAN) injection 4 1020 ([facility] Hold - mg(Linked Group 2) Provider: Automatic 4 mg, intravenous, Every 6 hours PRN, Transfer Provi filemon - nausea, vomiting, Starting on Sat Reason: Unreviewed 03/16/21 at 2216, 1st Line. Give IV if Transfer Order s)1208 patient is unable to take orally. If ([facility] Unhold - inadequate response within 60 minutes, Provider: Mayte na proceed to next-line agent or contact MIGUEL ANGEL Weinstein) provider if no further options ordered. 1025 ([facility] Hold - Provider: Automatic Tra nsfer Provider - Reason: Unreviewed Transfer Orders)1435 ([facility] Unhold - Provider: Talisha Weinstein RN) ondansetron (ZOFRAN-ODT) dispersible 1020 ([facility] Hold - tablet 4 mg(Linked Group 2) Provider: Automatic 4 mg, oral, Every 6 hours PRN, nausea, Transfer Prov ider - vomiting, Starting on 03/16/21 at Reason: Unrevie wed 2216, 1st Line. If inadequate response Transfer Orde rs)1208 within 60 minutes, proceed to next-line ([facility] Unhold - agent or contact provider if no further Provider: Em bianca options ordered. Patient should allow MIGUEL ANGEL Weinstein) tablet to dissolve on tongue. Do not remove from blister pack until just before administering. Order Group 1: acetaminophen (TYLENOL) tablet 650 mgJu mp to med 650 mg, oral, Every 4 hours PRN, mild p ain, Starting on 03/16/21 at 2215
If inadequate response within 60 minutes, proceed to next-line agent for same PRN reason or contact provider if no further options ordered.
Or acetaminophen (TYLENOL) 160 mg/5 mL mukul ution 640 mgJump to med 640 mg (rounded from 650 mg), oral, Hermelinda ry 4 hours PRN, mild pain, Starting on 03/16/21 at 2215
Give oral liquid if patient pre fers or per feeding tube if present. If inadequate response within 60 minutes, proceed to next-line agent for same PRN reason or contact provider if no further options ordered.
Or acetaminophen (TYLENOL) suppository 650 mgJump to med 650 mg, rectal, Every 4 hours PRN, mild pain, Starting on 03/16/21 at 2215
Give TN if unable to administer by mouth or feeding tube. If inadequate response within 60 minutes, proceed to next-line agent for same PRN reason or contact provider if no further options ordered.
Group 2: ondansetron (ZOFRAN-ODT) dispersible ta blet 4 mgJump to med 4 mg, oral, Every 6 hours PRN, nausea, vomiting, Starting on 03/16/21 at 2216
1st Line. If inadequate response within 60 minutes, proceed to next-line agent or contact provider if no further options ordered. Patient should a llow tablet to dissolve on tongue. Do not remove from blister pack until just before administering.<b r> Or ondansetron (ZOFRAN) injection 4 mgJump to med 4 mg, intravenous, Every 6 hours PRN, n ausea, vomiting, Starting on 03/16/21 at 2216
1st Line. Give IV if patient is unable to take or ally. If inadequate response within 60 minutes, proceed to next-line agent or contact provider if no further options ordered.
documented in this encounter Insurance Type Payer Benefit Subscriber ID Effective Phone Address Plan / Dates Group Medicare MEDICARE MEDICARE [id number] 2014-P PART A & B resent [place] [id number] 2021-P [phone] resent documented as of this encounter Advance Directives Date Inactivated Comments Code Status Date Activated Full Code 03/16/2021 10:19 PM
--- OUTSIDE RECORDS SUMMARY | 2021-04-26 19:31 | CCD | Continuity of Care Document ---
Author Author Edson MORENO [place] Organization Unknown Address [address] [place] [address], [place] [address] Phone [phone] Care Team Providers Care Arbor Press Operator Name Role Phone Marcus Estevez MD AUTM [phone] Mario Monet MD AUTM [phone] Edgar Andrews MD AUTM [phone] Problems Active Problems Provider Date Heart failure [...] Day 90tabs I50.32 Paul Diggs MD 09/30/2018 Spironolactone 25mg Tablets Take One-Half Tablet By Mouth Every Day 45tabs I50.32 Paul Diggs MD 10/2014 Furosemide 40mg Tablets take one tablet by mouth every morning and take 1/2 tablet by mouth 8 hours later 120tabs Paul Diggs MD 11/23/2014 Warfarin Sodium 2mg Tablets 1-2 by mouth daily or as directed 180tabs Paul Diggs MD 07/31/19 15 Digoxin 250mcg Tablets Take One Tablet By Mouth Every Day 90tabs I48.2 Paul Diggs MD 05/03/2014 Docqlace 100mg Capsules take one capsule by mouth twice a day 180caps K59.00 Paul Diggs MD 06/05/20 13 Warfarin Sodium 5mg Tablets take 1-2 tablets by mouth once daily or as directed 180tabs Marcus Dee MD 11/08/2012 Aspir-Low 81mg Tablets Edgar Qureshi MD 09/28/2012 Daily Vitamins Tablets 1 po [...] 1090 Procedures Date Code Description Status 03/13/2021 98029 Anticoagulant MGMT F or Patient Taking Warfarin, Inc Review & Intr Completed 03/12/2021 64401 Office/Outpatient Established Lo w MDM 20-29 Min Completed 03/04/2021 86234 Anticoagulant MGMT F or Patient Taking Warfarin, Inc Review & Intr Completed 02/27/2021 76167 Anticoagulant MGMT F or Patient Taking Warfarin, Inc Review & Intr Completed 02/21/2021 83396 Anticoagulant MGMT F or Patient Taking Warfarin, Inc Review & Intr Completed 02/12/2021 92289 Anticoagulant MGMT F or Patient Taking Warfarin, Inc Review & Intr Completed 02/06/2021 36059 Office/Outpatient Established Mo d MDM 30-39 Min Completed 02/06/2021 21828 ECG 12-Lead Completed 02/05/2021 59461 Anticoagulant MGMT F or Patient Taking Warfarin, Inc Review & Intr Completed 01/28/2021 92420 Anticoagulant MGMT F or Patient Taking Warfarin, Inc Review & Intr Completed 01/22/2021 25368 Chronic Care MGMT 20 Mins Clinical Staff Time Per Calendar Month Completed 01/21/2021 99905 Anticoagulant MGMT F or Patient Taking Warfarin, Inc Review & Intr Completed 01/15/2021 72759 Anticoagulant MGMT F or Patient Taking Warfarin, Inc Review & Intr Completed 01/07/2021 15839 Anticoagulant MGMT F or Patient Taking Warfarin, Inc Review & Intr Completed 12/31/2020 19466 Anticoagulant MGMT F or Patient Taking Warfarin, Inc Review & Intr Completed 12/28/2020 18827 Anticoagulant MGMT F or Patient Taking Warfarin, Inc Review & Intr Completed 12/25/2020 95647 Echocardiogram 2-D Doppler Color Completed 12/20/2020 49579 Chronic Care MGMT 20 Mins Clinical Staff Time Per Calendar Month Completed 12/20/2020 35720 Chronic Care Management Services Ea Addl 20 Min Completed 12/11/2020 18877 Anticoagulant MGMT F or Patient Taking Warfarin, Inc Review & Intr Completed 12/04/2020 00230 Anticoagulant MGMT F or Patient Taking Warfarin, Inc Review & Intr Completed 11/21/2020 04989 Chronic Care MGMT 20 Mins Clinical Staff Time Per Calendar Month Completed 11/21/2020 94306 Chronic Care Management Services Ea Addl 20 Min Completed 11/20/2020 64764 Anticoagulant MGMT F or Patient Taking Warfarin, Inc Review & Intr Completed 11/01/2020 52661 Complex Chronic Care MGMT Servic e Ea Addl 30 Min Completed 11/01/2020 75925 Complex Chronic Care Management SVC 1St 60 Min Completed 10/25/2020 29363 Anticoagulant MGMT F or Patient Taking Warfarin, Inc Review & Intr Completed 09/26/2020 66927 Chronic Care MGMT 20 Mins Clinical Staff Time Per Calendar Month Completed 09/26/2020 17641 Chronic Care Management Services Ea Addl 20 Min Completed 09/24/2020 42014 Anticoagulant MGMT F or Patient Taking Warfarin, Inc Review & Intr Completed 09/13/2020 23033 Anticoagulant MGMT F or Patient Taking Warfarin, Inc Review & Intr Completed Medical Devices Description No Information Available Encounters Type Date Location Provider Dx Diagnosis Office Visit 03/12/2021 2:00p Main Office [facility] I11 .0 Hypertensive heart disease with heart failure Z79.01 long-term (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 of a 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 Office Visit 02/06/2021 1:00p Main Office [facility] I48 .21 Permanent atrial fibrillation I11.0 Hypertensive heart disease w ith heart failure I50.32 Chronic diastolic (congestiv e) heart failure Z95.3 Presence of xenogenic heart valve I34.2 Nonrheumatic mitral (valve) stenosis R94.31 Abnormal electrocardiogram [ ECG] [EKG] E66.8 Other obesity Z71.3 Dietary counseling and surve illance Office Visit 12/20/2020 4:36p Main Office Paul Diggs MD I48.21 Permanent atrial fibrillation E66.8 Other obesity Office Visit 11/21/2020 12:35p Main Office Paul Diggs MD I48.21 Permanent atrial fibrillation I11.0 Hypertensive heart disease w [facility] heart failure Office Visit 11/01/2020 7:49a Main Office Paul Diggs MD I48.21 Permanent atrial fibrillation I11.0 Hypertensive heart disease w [facility] heart failure Office Visit 09/26/2020 2:54p Main Office Paul Diggs MD I48.21 Permanent atrial fibrillation I11.0 Hypertensive heart disease w [facility] heart failure Assessments Date Code Description Provider 03/12/2021 I11.0 Hypertensive heart disease with heart failure OM[facility] Duron 03/12/2021 Z79.01 long-term (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 of antic oagulants OM[facility] Duron 03/04/2021 I48.21 Permanent atrial fibrillation Familia Mccray PA-C 03/04/2021 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 Katie Darlene Sewell, PA-C 03/04/2021 Z79.01 long-term (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 of antic oagulants Katie E Sammiew, PA-C 02/27/2021 I48.21 Permanent atrial fibrillation Ca sosa Moreno, PA 02/27/2021 Z79.01 tosser (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 of antic oagulants Sarina Moreno, PA 02/21/2021 I48.21 Permanent atrial fibrillation Ca sosa Moreno, PA 02/21/2021 I34.2 Nonrheumatic mitral (valve) sten osis Sarina Moreno, PA 02/21/2021 Z79.01 long-term (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 of antic oagulants Sarina Moreno, PA 02/12/2021 I48.21 Permanent atrial fibrillation Ka renny Sewell, PA-C 02/12/2021 Z79.01 long-term (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 of antic oagulants Katie Sewell, PA-C 02/06/2021 I48.21 Permanent atrial fibrillation Ca sosa Moreno, PA 02/06/2021 I11.0 Hypertensive heart disease with heart failure Sarnia Moreno, PA 02/06/2021 I50.32 Chronic diastolic (congestive) [...] surveilla nce Sarina Moreno, PA 02/05/2021 Z79.01 long-term (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 of antic oagulants Katie E Sammiew, PA-C 01/28/2021 Z79.01 long-term (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 of antic oagulants Katie E Symenow, PA-C 01/28/2021 I48.21 Permanent atrial fibrillation Ka te E Symenow, PA-C 01/22/2021 I48.21 Permanent atrial fibrillation Francisco Javier Diggs MD 01/22/2021 E66.8 Other obesity Paul Diggs MD 01/21/2021 Z79.01 long-term (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 of antic oagulants Katie E Symenow, PA-C 01/15/2021 Z79.01 long-term (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 of antic oagulants Katie E Symenow, PA-C 01/07/2021 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 Paco, PA 01/07/2021 Z79.01 tosser (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 of antic oagulants Sarina L. 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 Paco, PA 12/28/2020 I48.21 Permanent atrial fibrillation Ca karlindra L. Paco, PA 12/28/2020 Z79.01 tosser (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 of antic oagulants Sarina L. 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 Katie E Symenow, PA-C 12/04/2020 Z79.01 long-term (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 of antic oagulants Katie Cochranw, PA-C 11/21/2020 I48.21 Permanent atrial fibrillation Francisco Javier Diggs MD 11/21/2020 I11.0 Hypertensive heart disease with heart failure Paul Diggs MD 11/20/2020 I48.21 Permanent atrial fibrillation Ka renny Darlene Sewell, PA-C 11/20/2020 Z79.01 long-term (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 of antic oagulants Katie Sewell, PA-C 11/01/2020 I48.21 Permanent atrial fibrillation Francisco Javier Diggs MD 11/01/2020 I11.0 Hypertensive heart disease with heart failure Paul Diggs MD 10/25/2020 I48.21 Permanent atrial fibrillation Ka renny Darlene Sewell, PA-C 10/25/2020 Z79.01 long-term (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 of antic oagulants Katie Sewell, PA-C 09/26/2020 I48.21 Permanent atrial fibrillation Francisco Javier Diggs MD 09/26/2020 I11.0 Hypertensive heart disease with heart failure Paul Diggs MD 09/24/2020 I48.21 Permanent atrial fibrillation Ka renny Darlene Sewell, PA-C 09/24/2020 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 Katie Darlene Sewell, PA-C 09/24/2020 Z79.01 long-term (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 of antic oagulants Katie Cochranw, PA-C 09/13/2020 Z79.01 tosser (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 of antic oagulants Katie Contrerasenow, PA-C 09/13/2020 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 Katie Sewell, PA-C Plan of Treatment Future Appointment(s):* 09/10/2021 2:30 pm - [facility] at Main Office 03/12/2021 - [facility]* I11.0 Hypertensive heart disease with heart failure* Recommendations:* Continue amlodipine, metoprolol, Spironolactone, and furosemide at the current dosages Encouraged patient to please obtain a BP cuff to monitor readings at home * Z79.01 long-term (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 of a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* Recommendations:* He is [...]
--- OUTSIDE RECORDS SUMMARY | 2021-04-26 19:31 | CCD | Continuity of Care Document ---
Author Author Edson MORENO [place] Organization Unknown Address [address] [place] [address], [place] [address] Phone [phone] Care Team Providers Care Shift Commander Name Role Phone Marcus Estevez MD AUTM [phone] Mario Monet MD AUTM Edgar Andrews MD AUTM [phone] Problems Active Problems Provider Date Heart failure [...] NP Onset: 05/30 Transplantation of heart valve RIKCY Alexandra Onset: 03/03/2017 Dietary management surveillance RICKY [...] 1090 Procedures Date Code Description Status 03/13/2021 88108 Anticoagulant MGMT F or Patient Taking Warfarin, Inc Review & Intr Completed 03/12/2021 13486 Office/Outpatient Established Lo w MDM 20-29 Min Completed 03/04/2021 18636 Anticoagulant MGMT F or Patient Taking Warfarin, Inc Review & Intr Completed 02/27/2021 96093 Anticoagulant MGMT F or Patient Taking Warfarin, Inc Review & Intr Completed 02/21/2021 19828 Anticoagulant MGMT F or Patient Taking Warfarin, Inc Review & Intr Completed 02/12/2021 16445 Anticoagulant MGMT F or Patient Taking Warfarin, Inc Review & Intr Completed 02/06/2021 71875 Office/Outpatient Established Mo d MDM 30-39 Min Completed 02/06/2021 67261 ECG 12-Lead Completed 02/05/2021 77613 Anticoagulant MGMT F or Patient Taking Warfarin, Inc Review & Intr Completed 01/28/2021 37540 Anticoagulant MGMT F or Patient Taking Warfarin, Inc Review & Intr Completed 01/22/2021 58347 Chronic Care MGMT 20 Mins Clinical Staff Time Per Calendar Month Completed 01/21/2021 06913 Anticoagulant MGMT F or Patient Taking Warfarin, Inc Review & Intr Completed 01/15/2021 51372 Anticoagulant MGMT F or Patient Taking Warfarin, Inc Review & Intr Completed 01/07/2021 25739 Anticoagulant MGMT F or Patient Taking Warfarin, Inc Review & Intr Completed 12/31/2020 59874 Anticoagulant MGMT F or Patient Taking Warfarin, Inc Review & Intr Completed 12/28/2020 40139 Anticoagulant MGMT F or Patient Taking Warfarin, Inc Review & Intr Completed 12/25/2020 00451 Echocardiogram 2-D Doppler Color Completed 12/20/2020 85058 Chronic Care MGMT 20 Mins Clinical Staff Time Per Calendar Month Completed 12/20/2020 17158 Chronic Care Management Services Ea Addl 20 Min Completed 12/11/2020 81291 Anticoagulant MGMT F or Patient Taking Warfarin, Inc Review & Intr Completed 12/04/2020 15394 Anticoagulant MGMT F or Patient Taking Warfarin, Inc Review & Intr Completed 11/21/2020 20523 Chronic Care MGMT 20 Mins Clinical Staff Time Per Calendar Month Completed 11/21/2020 15259 Chronic Care Management Services Ea Addl 20 Min Completed 11/20/2020 99216 Anticoagulant MGMT F or Patient Taking Warfarin, Inc Review & Intr Completed 11/01/2020 96493 Complex Chronic Care MGMT Servic e Ea Addl 30 Min Completed 11/01/2020 41666 Complex Chronic Care Management SVC 1St 60 Min Completed 10/25/2020 63527 Anticoagulant MGMT F or Patient Taking Warfarin, Inc Review & Intr Completed 09/26/2020 63902 Chronic Care MGMT 20 Mins Clinical Staff Time Per Calendar Month Completed 09/26/2020 89379 Chronic Care Management Services Ea Addl 20 Min Completed 09/24/2020 99230 Anticoagulant MGMT F or Patient Taking Warfarin, Inc Review & Intr Completed 09/13/2020 86629 Anticoagulant MGMT F or Patient Taking Warfarin, Inc Review & Intr Completed Medical Devices Description No Information Available Encounters Type Date Location Provider Dx Diagnosis Office Visit 03/12/2021 2:00p Main Office [facility] I11 .0 Hypertensive heart disease with heart failure Z79.01 custodial (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 of [...] atrial fibrillation I11.0 Hypertensive heart disease w [facility] heart failure Office Visit 11/01/2020 7:49a Main Office Paul Diggs MD I48.21 Permanent atrial fibrillation I11.0 Hypertensive heart disease w [facility] heart failure Office Visit 09/26/2020 2:54p Main Office Paul Diggs MD I48.21 Permanent atrial fibrillation I11.0 Hypertensive heart disease w [facility] heart failure Assessments Date Code Description Provider 03/13/2021 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 OMERO Duron 03/13/2021 I48.21 Permanent atrial fibrillation Ca karlindOMERO Curtis 03/13/2021 Z79.01 salvage determiner (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 of antic oagulants OMERO Duron 03/12/2021 I11.0 Hypertensive heart disease with heart failure Sarina Ernesto Moreno, PA 03/12/2021 Z79.01 salvage determiner (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 of antic oagulants Sarina L. Paco, PA 03/04/2021 I48.21 Permanent atrial fibrillation Familia Butler Symsalow, PA-C 03/04/2021 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 Katie E Symenow, PA-C 03/04/2021 Z79.01 salvage determiner (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 of antic oagulants Katie E Symenow, PA-C 02/27/2021 I48.21 Permanent atrial fibrillation Ca ssadanialra LMatteo Moreno, PA 02/27/2021 Z79.01 custodial (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 of antic oagulants Sarina L. Paco, PA 02/21/2021 I48.21 Permanent atrial fibrillation Ca sosa Moreno, PA 02/21/2021 I34.2 Nonrheumatic mitral (valve) sten osis Sarina Moreno, PA 02/21/2021 Z79.01 salvage determiner (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 of antic oagulants Sarina L. Paco, PA 02/12/2021 I48.21 Permanent atrial fibrillation Familia Butler Symsalow, PA-C 02/12/2021 Z79.01 salvage determiner (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 of antic oagulants Katie E Symenow, PA-C 02/06/2021 I48.21 Permanent atrial fibrillation Ca essencera Ernesto Moreno, PA 02/06/2021 I11.0 Hypertensive heart disease [...] surveilla nce Sarina Moreno, PA 02/05/2021 Z79.01 salvage determiner (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 of antic oagulants Katie E Symenow, PA-C 01/28/2021 Z79.01 custodial (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 of antic oagulants Katie E Symenow, PA-C 01/28/2021 I48.21 Permanent atrial fibrillation Ka te E Symenow, PA-C 01/22/2021 I48.21 Permanent atrial fibrillation Francisco Javier Diggs MD 01/22/2021 E66.8 Other obesity Paul Diggs MD 01/21/2021 Z79.01 custodial (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 of antic oagulants Katie E Symenow, PA-C 01/15/2021 Z79.01 custodial (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 of antic oagulants Katie E Symenow, PA-C 01/07/2021 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 Paco, PA 01/07/2021 Z79.01 custodial (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 of antic oagulants Sarina L. 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 Katie E Sammiew, PA-C 12/31/2020 I48.21 Permanent atrial fibrillation Ka te E Symsalow, PA-C 12/31/2020 Z79.01 custodial (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 of antic oagulants Katie Darlene Symsalow, PA-C 12/28/2020 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 Paco, PA 12/28/2020 I48.21 Permanent atrial fibrillation Ca sosa Moreno, PA 12/28/2020 Z79.01 custodial (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 of antic oagulants Sarina L. 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 ECHO 12/20/2020 I48.21 Permanent atrial fibrillation Francisco Javier Diggs MD 12/20/2020 E66.8 Other obesity Paul Diggs MD 12/11/2020 I48.21 Permanent atrial fibrillation Ka te E Symsalow, PA-C 12/11/2020 Z79.01 custodial (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 of antic oagulants Katie E Symenow, PA-C 12/04/2020 I48.21 Permanent atrial fibrillation Ka te E Symenow, PA-C 12/04/2020 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 Katie E Symenow, PA-C 12/04/2020 Z79.01 salvage determiner (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 of antic oagulants Katie E Symenow, PA-C 11/21/2020 I48.21 Permanent atrial fibrillation Francisco Javier Diggs MD 11/21/2020 I11.0 Hypertensive heart disease with heart failure Paul Diggs MD 11/20/2020 I48.21 Permanent atrial fibrillation Ka te E Symsalow, PA-C 11/20/2020 Z79.01 custodial (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 of antic oagulants Katie Colon Symenow, PA-C 11/01/2020 I48.21 Permanent atrial fibrillation Francisco Javier Diggs MD 11/01/2020 I11.0 Hypertensive heart disease with heart failure Paul Diggs MD 10/25/2020 I48.21 Permanent atrial fibrillation Ka te Darlene Cochranw, PA-C 10/25/2020 Z79.01 custodial (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 of antic oagulants Katie E Symenow, PA-C 09/26/2020 I48.21 Permanent atrial fibrillation Francisco Javier Diggs MD 09/26/2020 I11.0 Hypertensive heart disease with heart failure Paul Diggs MD 09/24/2020 I48.21 Permanent atrial fibrillation Ka te E Symenow, PA-C 09/24/2020 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 Katie E Symenow, PA-C 09/24/2020 Z79.01 salvage determiner (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 of antic oagulants Katie E Symenow, PA-C 09/13/2020 Z79.01 custodial (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 of antic oagulants Katie E Symenow, PA-C 09/13/2020 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 Katie E Symenow, PA-C Plan of Treatment Future Appointment(s):* 09/10/2021 2:30 pm - [facility] at Main Office 03/12/2021 - [facility]* I11.0 Hypertensive heart disease with heart failure* Recommendations:* Continue amlodipine, metoprolol, Spironolactone, and furosemide at the current dosages Encouraged patient to please obtain a BP cuff to monitor readings at home * Z79.01 custodial (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 of a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* Recommendations:* He is [...]
--- OUTSIDE RECORDS SUMMARY | 2021-04-26 19:31 | CCD | Continuity of Care Document ---
Author Author Edson MELTON PA-C Organization Unknown Address [address] [place] [address], [place] [address] Phone [phone] Care Team Providers Care Milk Tanker Driver Name Role Phone Marcus Estevez MD AUTM [phone] Mario Monet MD AUTM Edgar Andrews MD AUTM [phone] Problems Active Problems Provider Date Heart failure [...] Dee MD 11/08/2012 Aspir-Low 81mg Tablets DR Dillon p o qd Edgar Andrews MD 09/28/2012 Daily Vitamins Tablets 1 po Marcus Cohn MD 09/05/2012 Phenytoin Sodium Extended 100mg Ca psules 1 po tid Marcus Estevez MD 09/05/2012 Metoprolol Tartrate 50mg Tablets Take 1 Tablet By Mouth Two Times A Day 180tabs I48.2 Paul Diggs MD 09/05/2012 Phenobarbital 64.8mg Tablets 1 po bid Marcus Estevez MD 06/24/2012 Immunizations Description No Information Available Vital Signs Date Vital Result Comment 02/06/2021 12:52pm Weight 176.00 lb Height 66 inches 5'6" BMI (Body Mass Index) 28.4 kg/m2 Heart Rate 70 /min BP Systolic Sitting 158 mmHg Ra, large cuff BP Diastolic Sitting 86 mmHg Ra, large cuff 08/09/2020 12:48pm Weight 184.00 lb Height 66 inches 5'6" BMI (Body Mass Index) 29.7 kg/m2 Heart Rate 69 /min BP Systolic Sitting 130 mmHg Ra, large cuff BP Diastolic Sitting 78 mmHg Ra, large cuff Results Test Acquired [...] Ser/Plas 1090 Procedures Date Code Description Status 03/04/2021 65154 Anticoagulant MGMT F or Patient Taking Warfarin, Inc Review & Intr Completed 02/27/2021 57018 Anticoagulant MGMT F or Patient Taking Warfarin, Inc Review & Intr Completed 02/21/2021 87798 Anticoagulant MGMT F or Patient Taking Warfarin, Inc Review & Intr Completed 02/12/2021 97885 Anticoagulant MGMT F or Patient Taking Warfarin, Inc Review & Intr Completed 02/06/2021 59131 Office/Outpatient Established Mo d MDM 30-39 Min Completed 02/06/2021 01598 ECG 12-Lead Completed 02/05/2021 85626 Anticoagulant MGMT F or Patient Taking Warfarin, Inc Review & Intr Completed 01/28/2021 54907 Anticoagulant MGMT F or Patient Taking Warfarin, Inc Review & Intr Completed 01/21/2021 05053 Anticoagulant MGMT F or Patient Taking Warfarin, Inc Review & Intr Completed 01/15/2021 92035 Anticoagulant MGMT F or Patient Taking Warfarin, Inc Review & Intr Completed 01/07/2021 86074 Anticoagulant MGMT F or Patient Taking Warfarin, Inc Review & Intr Completed 12/31/2020 23223 Anticoagulant MGMT F or Patient Taking Warfarin, Inc Review & Intr Completed 12/28/2020 55402 Anticoagulant MGMT F or Patient Taking Warfarin, Inc Review & Intr Completed 12/25/2020 57424 Echocardiogram 2-D Doppler Color Completed 12/20/2020 43493 Chronic Care MGMT 20 Mins Clinical Staff Time Per Calendar Month Completed 12/20/2020 14476 Chronic Care Management Services Ea Addl 20 Min Completed 12/11/2020 18613 Anticoagulant MGMT F or Patient Taking Warfarin, Inc Review & Intr Completed 12/04/2020 79277 Anticoagulant MGMT F or Patient Taking Warfarin, Inc Review & Intr Completed 11/21/2020 86094 Chronic Care MGMT 20 Mins Clinical Staff Time Per Calendar Month Completed 11/21/2020 12521 Chronic Care Management Services Ea Addl 20 Min Completed 11/20/2020 15283 Anticoagulant MGMT F or Patient Taking Warfarin, Inc Review & Intr Completed 11/01/2020 80117 Complex Chronic Care MGMT Servic e Ea Addl 30 Min Completed 11/01/2020 71646 Complex Chronic Care Management SVC 1St 60 Min Completed 10/25/2020 15862 Anticoagulant MGMT F or Patient Taking Warfarin, Inc Review & Intr Completed 09/26/2020 93647 Chronic Care MGMT 20 Mins Clinical Staff Time Per Calendar Month Completed 09/26/2020 04617 Chronic Care Management Services Ea Addl 20 Min Completed 09/24/2020 62448 Anticoagulant MGMT F or Patient Taking Warfarin, Inc Review & Intr Completed 09/13/2020 15574 Anticoagulant MGMT F or Patient Taking Warfarin, Inc Review & Intr Completed 09/05/2020 74320 Anticoagulant MGMT F or Patient Taking Warfarin, Inc Review & Intr Completed Medical Devices Description No Information Available Encounters Type Date Location Provider Dx Diagnosis Office Visit 02/06/2021 1:00p Main Office OMERO Duron I48 .21 Permanent atrial fibrillation I11.0 Hypertensive heart disease w [facility] heart failure I50.32 Chronic diastolic (congestiv e) [...] I11.0 Hypertensive heart disease w [facility] heart failure Office Visit 11/01/2020 7:49a Main Office Paul Diggs MD I48.21 Permanent atrial fibrillation I11.0 Hypertensive heart disease w [facility] heart failure Office Visit 09/26/2020 2:54p Main Office Paul Diggs MD I48.21 Permanent atrial fibrillation I11.0 Hypertensive heart disease w [facility] heart failure Assessments Date Code Description Provider 02/27/2021 I48.21 Permanent atrial fibrillation Ca OMERO Baker 02/27/2021 Z79.01 remote computer terminal operator (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 of antic oagulants OMERO Duron 02/21/2021 I48.21 Permanent atrial fibrillation Ca OMERO Baker 02/21/2021 I34.2 Nonrheumatic mitral (valve) sten osis OMERO Duron 02/21/2021 Z79.01 custodial (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 of antic oagulants OMERO Duron 02/12/2021 I48.21 Permanent atrial fibrillation Familia Mccray PA-C 02/12/2021 Z79.01 custodial (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 of antic oagulants Katie E Symenow, PA-C 02/06/2021 I48.21 Permanent atrial fibrillation Ca sosa Antonio, PA 02/06/2021 I11.0 Hypertensive heart disease with heart failure Sarina Antonio, PA 02/06/2021 I50.32 Chronic diastolic (congestive) h eart failure Sarina Antonio PA 02/06/2021 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 Sarina Antonoi PA 02/06/2021 I34.2 Nonrheumatic mitral (valve) sten osis Sarina Antonio, PA 02/06/2021 R94.31 Abnormal electrocardiogram [ECG] [EKG] OMERO Duron 02/06/2021 E66.8 Other obesity Sairna Orozco Cha, se, PA 02/06/2021 Z71.3 Dietary counseling and surveilla nce Sarina Antonio PA 02/05/2021 Z79.01 remote computer terminal operator (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 of antic oagulants Katie E Symenow, PA-C 01/28/2021 Z79.01 remote computer terminal operator (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 of antic oagulants Katie E Symenow, PA-C 01/28/2021 I48.21 Permanent atrial fibrillation Ka te E Symsalow, PA-C 01/21/2021 Z79.01 remote computer terminal operator (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 of antic oagulants Katie E Symenow, PA-C 01/15/2021 Z79.01 custodial (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 of antic oagulants Katie E Symenow, PA-C 01/07/2021 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 Sarina Antonio PA 01/07/2021 Z79.01 remote computer terminal operator (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 of antic oagulants Sarina Antonio, PA 12/31/2020 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 Katie E Symenow, PA-C 12/31/2020 I48.21 Permanent atrial fibrillation Ka te E Symenow, PA-C 12/31/2020 Z79.01 remote computer terminal operator (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 of antic oagulants Katie E Symenow, PA-C 12/28/2020 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 Sarina Antonio, PA 12/28/2020 I48.21 Permanent atrial fibrillation Ca sosa Antonio, PA 12/28/2020 Z79.01 custodial (current) use of antic oagulants Sarina Antonio, PA 12/25/2020 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 ECHO 12/20/2020 I48.21 Permanent atrial fibrillation Francisco Javier Diggs MD 12/20/2020 E66.8 Other obesity Paul Diggs MD 12/11/2020 I48.21 Permanent atrial fibrillation Ka te E Symenow, PA-C 12/11/2020 Z79.01 remote computer terminal operator (current) use of antic oagulants Katie E Symenow, PA-C 12/04/2020 I48.21 Permanent atrial fibrillation Ka te E Symenow, PA-C 12/04/2020 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 Katie E Symenow, PA-C 12/04/2020 Z79.01 custodial (current) use of [...] I48.21 Permanent atrial fibrillation Ka te E Donato, PA-C 10/25/2020 Z79.01 custodial (current) use of antic oagulants Katie Colon Symsalow, PA-C 09/26/2020 I48.21 Permanent atrial fibrillation Francisco Javier Diggs MD 09/26/2020 I11.0 Hypertensive heart disease with heart failure Paul Diggs MD 09/24/2020 I48.21 Permanent atrial fibrillation Familia Butler Donato PAArnoldoC 09/24/2020 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 Katie Darlene Melton, PAArnoldoC 09/24/2020 Z79.01 custodial (current) use of antic oagulants Katie Contrerasenow, PA-C 09/13/2020 Z79.01 custodial (current) use of antic oagulants Katie Cochranw, PA-C 09/13/2020 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 Katie Darlene Melton, PA-C 09/05/2020 Z79.01 custodial (current) use of antic oagulants Katie Melton, PA-C 09/05/2020 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 Katie Darlene Melton, PA-C 09/05/2020 I48.21 Permanent atrial fibrillation Familia Butler KAROL Melton Plan of Treatment Future Appointment(s):* 03/12/2021 2:00 pm - OMERO Duron at Main Office 02/06/2021 - OMERO Duron* I48.21 Permanent atrial fibrillation* Recommendations:* Patient agreeable to contact our office with any episodes of tachycardia or palpitations Continue digoxin, metoprolol, and warfarin at the current dosages * I11.0 Hypertensive heart disease with heart failure* New Medication:* Amlodipine Besylate 2.5 mg - 1 by mouth every day in the morning * Recommendations:* Begin amlodipine 2.5 mg daily Continue metoprolol, Spironolactone, and furosemide at the current dosages Will see him back in ~1 mo for a BP check * I50.32 Chronic diastolic (congestive) heart failure* Recommendations:* No medication changes made today Please alert our office with a weight gain of m ore than 3 pounds, onset of shortness of breath, or lower extremity edema * Z95.3 Presence of xenogenic heart valve* Recommendations:* No further evaluation is needed at this time Plan for repeat echocardiogram with 2022 * I34.2 Nonrheumatic mitral (valve) stenosis * R94.31 Abnormal electrocardiogram [ECG] [EKG]* Recommendations:* No further evaluation is needed at this time. * E66.8 Other obesity * Z71.3 Dietary counseling and surveillance* Recommendations:* Recommended for patient to follow a more whole food diet. Advised patient to avoid overly processed foods and packaged foods. Advised patient to avoid sodas, juices and other liquid calories. Recommended at least 30 minutes of exercise 3 days a week. * All * Follow up:* BP check in 1 month Functional Status Functional Condition Comment Date Status Independent with all ADL's Activ e Mental Status Description No Information Available Referrals Description No Information Available
--- OUTSIDE RECORDS SUMMARY | 2021-04-26 19:31 | CCD | Continuity of Care Document ---
Author Author Edson MELTON PA-C Organization Unknown Address [address] [place] [address], [place] [address] Phone [phone] Care Team Providers Care Middle School Counselor Name Role Phone Marcus Estevez MD AUTM [phone] Mario Monet MD AUTM Edgar Andrews MD AUTM [phone] Problems Active Problems Provider Date Heart failure [...] 1090 Procedures Date Code Description Status 03/04/2021 54942 Anticoagulant MGMT F or Patient Taking Warfarin, Inc Review & Intr Completed 02/27/2021 52559 Anticoagulant MGMT F or Patient Taking Warfarin, Inc Review & Intr Completed 02/21/2021 34417 Anticoagulant MGMT F or Patient Taking Warfarin, Inc Review & Intr Completed 02/12/2021 45787 Anticoagulant MGMT F or Patient Taking Warfarin, Inc Review & Intr Completed 02/06/2021 99909 Office/Outpatient Established Mo d MDM 30-39 Min Completed 02/06/2021 51238 ECG 12-Lead Completed 02/05/2021 95314 Anticoagulant MGMT F or Patient Taking Warfarin, Inc Review & Intr Completed 01/28/2021 25252 Anticoagulant MGMT F or Patient Taking Warfarin, Inc Review & Intr Completed 01/22/2021 74570 Chronic Care MGMT 20 Mins Clinical Staff Time Per Calendar Month Completed 01/21/2021 86577 Anticoagulant MGMT F or Patient Taking Warfarin, Inc Review & Intr Completed 01/15/2021 42705 Anticoagulant MGMT F or Patient Taking Warfarin, Inc Review & Intr Completed 01/07/2021 33409 Anticoagulant MGMT F or Patient Taking Warfarin, Inc Review & Intr Completed 12/31/2020 38557 Anticoagulant MGMT F or Patient Taking Warfarin, Inc Review & Intr Completed 12/28/2020 32447 Anticoagulant MGMT F or Patient Taking Warfarin, Inc Review & Intr Completed 12/25/2020 15787 Echocardiogram 2-D Doppler Color Completed 12/20/2020 81359 Chronic Care MGMT 20 Mins Clinical Staff Time Per Calendar Month Completed 12/20/2020 72827 Chronic Care Management Services Ea Addl 20 Min Completed 12/11/2020 55399 Anticoagulant MGMT F or Patient Taking Warfarin, Inc Review & Intr Completed 12/04/2020 05549 Anticoagulant MGMT F or Patient Taking Warfarin, Inc Review & Intr Completed 11/21/2020 55366 Chronic Care MGMT 20 Mins Clinical Staff Time Per Calendar Month Completed 11/21/2020 99936 Chronic Care Management Services Ea Addl 20 Min Completed 11/20/2020 32436 Anticoagulant MGMT F or Patient Taking Warfarin, Inc Review & Intr Completed 11/01/2020 73743 Complex Chronic Care MGMT Servic e Ea Addl 30 Min Completed 11/01/2020 42851 Complex Chronic Care Management SVC 1St 60 Min Completed 10/25/2020 15073 Anticoagulant MGMT F or Patient Taking Warfarin, Inc Review & Intr Completed 09/26/2020 96342 Chronic Care MGMT 20 Mins Clinical Staff Time Per Calendar Month Completed 09/26/2020 93410 Chronic Care Management Services Ea Addl 20 Min Completed 09/24/2020 10308 Anticoagulant MGMT F or Patient Taking Warfarin, Inc Review & Intr Completed 09/13/2020 12310 Anticoagulant MGMT F or Patient Taking Warfarin, Inc Review & Intr Completed Medical Devices Description No Information Available Encounters Type Date Location Provider Dx Diagnosis Office Visit 02/06/2021 1:00p Main Office OMERO Duron I48 .21 Permanent atrial fibrillation I11.0 Hypertensive heart disease w [facility] heart failure I50.32 Chronic diastolic (congestiv e) heart failure Z95.3 Presence of xenogenic heart valve I34.2 Nonrheumatic mitral (valve) stenosis R94.31 Abnormal electrocardiogram [ ECG] [EKG] E66.8 Other obesity Z71.3 Dietary counseling and surve illance Office Visit 12/20/2020 4:36p Main Office Paul Diggs MD I48.21 Permanent atrial fibrillation E66.8 Other obesity Office Visit 11/21/2020 12:35p Main Office Paul Dgigs MD I48.21 Permanent atrial fibrillation I11.0 Hypertensive heart disease w [facility] heart failure Office Visit 11/01/2020 7:49a Main Office Paul Diggs MD I48.21 Permanent atrial fibrillation I11.0 Hypertensive heart disease w [facility] heart failure Office Visit 09/26/2020 2:54p Main Office Paul Diggs MD I48.21 Permanent atrial fibrillation I11.0 Hypertensive heart disease w [facility] heart failure Assessments Date Code Description Provider 03/04/2021 I48.21 Permanent atrial fibrillation Familia Mccray PA-C 03/04/2021 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 Katie Melton PA-C 03/04/2021 Z79.01 technician terminal and repeater (current) use of antic oagulants Katie Melton PA-C 02/27/2021 I48.21 Permanent atrial fibrillation Ca OMERO Baker 02/27/2021 Z79.01 technician terminal and repeater (current) use of antic oagulants OMERO Duron 02/21/2021 I48.21 Permanent atrial fibrillation Ca OMERO Baker 02/21/2021 I34.2 Nonrheumatic mitral (valve) sten osjorge luis OwensSarina LMatteo Antonio, PA 02/21/2021 Z79.01 residential (current) use of antic oagulants Sarina LMatteo Antoino, PA 02/12/2021 I48.21 Permanent atrial fibrillation Ka renny E Symenow, PA-C 02/12/2021 Z79.01 residential (current) use of antic oagulants Katie Colon Symsalow, PA-C 02/06/2021 I48.21 Permanent atrial fibrillation Ca sosa ScoobyMatteo Antonio, PA 02/06/2021 I11.0 Hypertensive heart disease with heart failure Sarina Antonio, PA 02/06/2021 I50.32 Chronic diastolic (congestive) h eart failure Sarina Antonio, PA 02/06/2021 Z95.3 Presence of xenogenic heart valv jose Antonio, PA 02/06/2021 I34.2 Nonrheumatic mitral (valve) sten eve Sarina Antonio, PA 02/06/2021 R94.31 Abnormal electrocardiogram [ECG] [EKG] Sarina ScoobyMatteo Antonio, PA 02/06/2021 E66.8 Other obesity Sairna Orozco Cha, se, PA 02/06/2021 Z71.3 Dietary counseling and surveilla nce Sarina ScoobyMatteo Antonio, PA 02/05/2021 Z79.01 technician terminal and repeater (current) use of antic oagulants Katie Colon Symenow, PA-C 01/28/2021 Z79.01 residential (current) use of antic oagulants Katie Colon Symenow, PA-C 01/28/2021 I48.21 Permanent atrial fibrillation Ka renny Jose Symsalow, PA-C 01/22/2021 I48.21 Permanent atrial fibrillation Francisco Javier Diggs MD 01/22/2021 E66.8 Other obesity Paul Diggs MD 01/21/2021 Z79.01 technician terminal and repeater (current) use of antic oagulants Katie Colon Symenow, PA-C 01/15/2021 Z79.01 residential (current) use of antic oagulants Katie Colon Symsalow, PA-C 01/07/2021 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 Paco, PA 01/07/2021 Z79.01 residential (current) use of antic oagulants Sarina L. 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 Paco, PA 12/28/2020 I48.21 Permanent atrial fibrillation Ca ssandra L. Paco, PA 12/28/2020 Z79.01 residential (current) use of antic oagulants Sarina L. 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 Katie E Symenow, PA-C 12/04/2020 Z79.01 residential (current) use of antic oagulants Katie E Symenow, PA-C 11/21/2020 I48.21 Permanent atrial fibrillation Francisco Javier Diggs MD 11/21/2020 I11.0 Hypertensive heart disease with heart failure Paul Diggs MD 11/20/2020 I48.21 Permanent atrial fibrillation Ka te E Symenow, PA-C 11/20/2020 Z79.01 residential (current) use of antic oagulants Katie E Symenow, PA-C 11/01/2020 I48.21 Permanent atrial fibrillation Francisco Javier Diggs MD 11/01/2020 I11.0 Hypertensive heart disease with heart failure Paul Diggs MD 10/25/2020 I48.21 Permanent atrial fibrillation Familia renny Melton PA-C 10/25/2020 Z79.01 residential (current) use of antic oagulants EMILIANO EarlC 09/26/2020 I48.21 Permanent atrial fibrillation Francisco Javier Diggs MD 09/26/2020 I11.0 Hypertensive heart disease with heart failure Paul Diggs MD 09/24/2020 I48.21 Permanent atrial fibrillation Familia renny Meltno PA-C 09/24/2020 Z95.3 Presence of xenogenic heart valv jose Katie Melton PA-C 09/24/2020 Z79.01 residential (current) use of antic oagulants EMILIANO EarlC 09/13/2020 Z79.01 residential (current) use of antic oagulants EMILIANO EarlC 09/13/2020 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
--- OUTSIDE RECORDS SUMMARY | 2021-04-26 19:31 | CCD | Continuity of Care Document ---
Author Author Edson MORENO [place] Organization Unknown Address [address] [place] [address], [place] [address] Phone [phone] Care Team Providers Care Road Design Draftsperson Name Role Phone Marcus Estevez MD AUTM [phone] Mario Monet MD AUTM [phone] Edgar Andrews MD AUTM [phone] Problems Active Problems Provider Date Heart failure [...] Ser/Plas 1090 Procedures Date Code Description Status 03/12/2021 18711 Office/Outpatient Established Lo w MDM 20-29 Min Completed 03/04/2021 06868 Anticoagulant MGMT F or Patient Taking Warfarin, Inc Review & Intr Completed 02/27/2021 13106 Anticoagulant MGMT F or Patient Taking Warfarin, Inc Review & Intr Completed 02/21/2021 57992 Anticoagulant MGMT F or Patient Taking Warfarin, Inc Review & Intr Completed 02/12/2021 17690 Anticoagulant MGMT F or Patient Taking Warfarin, Inc Review & Intr Completed 02/06/2021 15677 Office/Outpatient Established Mo d MDM 30-39 Min Completed 02/06/2021 46574 ECG 12-Lead Completed 02/05/2021 96949 Anticoagulant MGMT F or Patient Taking Warfarin, Inc Review & Intr Completed 01/28/2021 59209 Anticoagulant MGMT F or Patient Taking Warfarin, Inc Review & Intr Completed 01/22/2021 76689 Chronic Care MGMT 20 Mins Clinical Staff Time Per Calendar Month Completed 01/21/2021 48173 Anticoagulant MGMT F or Patient Taking Warfarin, Inc Review & Intr Completed 01/15/2021 66771 Anticoagulant MGMT F or Patient Taking Warfarin, Inc Review & Intr Completed 01/07/2021 74944 Anticoagulant MGMT F or Patient Taking Warfarin, Inc Review & Intr Completed 12/31/2020 75942 Anticoagulant MGMT F or Patient Taking Warfarin, Inc Review & Intr Completed 12/28/2020 06039 Anticoagulant MGMT F or Patient Taking Warfarin, Inc Review & Intr Completed 12/25/2020 50776 Echocardiogram 2-D Doppler Color Completed 12/20/2020 20000 Chronic Care MGMT 20 Mins Clinical Staff Time Per Calendar Month Completed 12/20/2020 64262 Chronic Care Management Services Ea Addl 20 Min Completed 12/11/2020 18540 Anticoagulant MGMT F or Patient Taking Warfarin, Inc Review & Intr Completed 12/04/2020 25631 Anticoagulant MGMT F or Patient Taking Warfarin, Inc Review & Intr Completed 11/21/2020 68369 Chronic Care MGMT 20 Mins Clinical Staff Time Per Calendar Month Completed 11/21/2020 50255 Chronic Care Management Services Ea Addl 20 Min Completed 11/20/2020 64516 Anticoagulant MGMT F or Patient Taking Warfarin, Inc Review & Intr Completed 11/01/2020 76768 Complex Chronic Care MGMT Servic e Ea Addl 30 Min Completed 11/01/2020 52124 Complex Chronic Care Management SVC 1St 60 Min Completed 10/25/2020 74835 Anticoagulant MGMT F or Patient Taking Warfarin, Inc Review & Intr Completed 09/26/2020 52837 Chronic Care MGMT 20 Mins Clinical Staff Time Per Calendar Month Completed 09/26/2020 15159 Chronic Care Management Services Ea Addl 20 Min Completed 09/24/2020 48164 Anticoagulant MGMT F or Patient Taking Warfarin, Inc Review & Intr Completed 09/13/2020 98769 Anticoagulant MGMT F or Patient Taking Warfarin, Inc Review & Intr Completed Medical Devices Description No Information Available Encounters Type Date Location Provider Dx Diagnosis Office Visit 03/12/2021 2:00p Main Office OMERO Duron I11 .0 Hypertensive heart disease with heart failure Office Visit 02/06/2021 1:00p Main [...] atrial fibrillation I11.0 Hypertensive heart disease w [facility] heart failure Office Visit 11/01/2020 7:49a Main Office Paul Diggs MD I48.21 Permanent atrial fibrillation I11.0 Hypertensive heart disease w [facility] heart failure Office Visit 09/26/2020 2:54p Main Office Paul Diggs MD I48.21 Permanent atrial fibrillation I11.0 Hypertensive heart disease w 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 Paco, PA 02/21/2021 I48.21 Permanent atrial fibrillation Ca sosa Orozco Paco, PA 02/21/2021 I34.2 Nonrheumatic mitral (valve) sten osis Sarina L. 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 Sarina ScoobyMatteo Moreno, PA 02/06/2021 I34.2 Nonrheumatic mitral (valve) sten osis Sarina ScoobyMatteo Moreno, PA 02/06/2021 R94.31 Abnormal electrocardiogram [ECG] [EKG] Sarina LMatteo Moreno, PA 02/06/2021 E66.8 Other obesity Sarina Orozco Cha, se, PA 02/06/2021 Z71.3 Dietary counseling and surveilla nce Sarina ScoobyMatteo Moreno, PA 02/05/2021 Z79.01 senior living (current) use of antic oagulants Katie Cochranw, PA-C 01/28/2021 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 Paco, PA 01/07/2021 Z79.01 office rental 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 Sarina L. 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 Paco, PA 12/28/2020 I48.21 Permanent atrial fibrillation Ca karlindra Ernesto Moreno, PA 12/28/2020 Z79.01 senior living (current) use of antic oagulants Sarina L. 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 Katie E Symenow, PA-C 12/04/2020 Z79.01 senior living (current) use of antic oagulants Katie E Symenow, PA-C 11/21/2020 I48.21 Permanent atrial fibrillation Francisco Javier Diggs MD 11/21/2020 I11.0 Hypertensive heart disease with heart failure Paul Diggs MD 11/20/2020 I48.21 Permanent atrial fibrillation Familia renny Sewell, PA-C 11/20/2020 Z79.01 senior living (current) use of antic oagulants Katie Sewell, PA-C 11/01/2020 I48.21 Permanent atrial fibrillation Francisco Javier Diggs MD 11/01/2020 I11.0 Hypertensive heart disease with heart failure Paul Diggs MD 10/25/2020 I48.21 Permanent atrial fibrillation Ka renny Darlene Sewell, PA-C 10/25/2020 Z79.01 office rental 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 Katie Sewell, PA-C 09/26/2020 I48.21 Permanent atrial fibrillation Francisco Javier Diggs MD 09/26/2020 I11.0 Hypertensive heart disease with heart failure Paul Diggs MD 09/24/2020 I48.21 Permanent atrial fibrillation Ka renny Darlene Sewell, PA-C 09/24/2020 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 Katie Cochranw, PA-C 09/24/2020 Z79.01 office rental 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 Katie Cochranw, PA-C 09/13/2020 Z79.01 office rental 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 Katie Cochranw, PA-C 09/13/2020 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
--- OUTSIDE RECORDS SUMMARY | 2021-04-26 19:31 | CCD | Continuity of Care Document ---
Author Author Edson MORENO [place] Organization Unknown Address [address] [place] [address], [place] [address] Phone [phone] Care Team Providers Care Special Events Planner Name Role Phone Marcus Estevez MD AUTM [phone] Mario Monet MD AUTM [phone] Edgar Andrews MD AUTM [phone] Problems Active Problems Provider Date Heart failure Paul Diggs MD Onset: 09/06/2012 Atrial fibrillation Paul Dgigs MD Onset: 09/06/2012 Electrocardiogram abnormal Paul Diggs [...] Tablet By Mouth Every Day 90tabs I50.32 Palu Diggs MD 09/30/2018 Spironolactone 25mg Tablets Take [...] 1090 Procedures Date Code Description Status 03/13/2021 73014 Anticoagulant MGMT F or Patient Taking Warfarin, Inc Review & Intr Completed 03/12/2021 89860 Office/Outpatient Established Lo w MDM 20-29 Min Completed 03/04/2021 77192 Anticoagulant MGMT F or Patient Taking Warfarin, Inc Review & Intr Completed 02/27/2021 80788 Anticoagulant MGMT F or Patient Taking Warfarin, Inc Review & Intr Completed 02/21/2021 01292 Anticoagulant MGMT F or Patient Taking Warfarin, Inc Review & Intr Completed 02/12/2021 31358 Anticoagulant MGMT F or Patient Taking Warfarin, Inc Review & Intr Completed 02/06/2021 27005 Office/Outpatient Established Mo d MDM 30-39 Min Completed 02/06/2021 14972 ECG 12-Lead Completed 02/05/2021 25766 Anticoagulant MGMT F or Patient Taking Warfarin, Inc Review & Intr Completed 01/28/2021 32764 Anticoagulant MGMT F or Patient Taking Warfarin, Inc Review & Intr Completed 01/22/2021 62689 Chronic Care MGMT 20 Mins Clinical Staff Time Per Calendar Month Completed 01/21/2021 46672 Anticoagulant MGMT F or Patient Taking Warfarin, Inc Review & Intr Completed 01/15/2021 83941 Anticoagulant MGMT F or Patient Taking Warfarin, Inc Review & Intr Completed 01/07/2021 98127 Anticoagulant MGMT F or Patient Taking Warfarin, Inc Review & Intr Completed 12/31/2020 44394 Anticoagulant MGMT F or Patient Taking Warfarin, Inc Review & Intr Completed 12/28/2020 66095 Anticoagulant MGMT F or Patient Taking Warfarin, Inc Review & Intr Completed 12/25/2020 37594 Echocardiogram 2-D Doppler Color Completed 12/20/2020 49654 Chronic Care MGMT 20 Mins Clinical Staff Time Per Calendar Month Completed 12/20/2020 54459 Chronic Care Management Services Ea Addl 20 Min Completed 12/11/2020 71556 Anticoagulant MGMT F or Patient Taking Warfarin, Inc Review & Intr Completed 12/04/2020 39650 Anticoagulant MGMT F or Patient Taking Warfarin, Inc Review & Intr Completed 11/21/2020 60702 Chronic Care MGMT 20 Mins Clinical Staff Time Per Calendar Month Completed 11/21/2020 25716 Chronic Care Management Services Ea Addl 20 Min Completed 11/20/2020 21971 Anticoagulant MGMT F or Patient Taking Warfarin, Inc Review & Intr Completed 11/01/2020 35242 Complex Chronic Care MGMT Servic e Ea Addl 30 Min Completed 11/01/2020 70927 Complex Chronic Care Management SVC 1St 60 Min Completed 10/25/2020 33374 Anticoagulant MGMT F or Patient Taking Warfarin, Inc Review & Intr Completed 09/26/2020 03391 Chronic Care MGMT 20 Mins Clinical Staff Time Per Calendar Month Completed 09/26/2020 96774 Chronic Care Management Services Ea Addl 20 Min Completed 09/24/2020 84185 Anticoagulant MGMT F or Patient Taking Warfarin, Inc Review & Intr Completed 09/13/2020 91520 Anticoagulant MGMT F or Patient Taking Warfarin, [...] atrial fibrillation I11.0 Hypertensive heart disease w [facility] heart failure Office Visit 11/01/2020 7:49a Main Office Paul Diggs MD I48.21 Permanent atrial fibrillation I11.0 Hypertensive heart disease w [facility] heart failure Office Visit 09/26/2020 2:54p Main Office Paul Diggs MD I48.21 Permanent atrial fibrillation I11.0 Hypertensive heart disease w [facility] heart failure Assessments Date Code Description Provider 03/13/2021 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 Paco, PA 02/12/2021 I48.21 Permanent atrial fibrillation Familia Butler Symsalow, PA-C 02/12/2021 Z79.01 long term acute care registered nurse (current) use of antic oagulants Katie E [...] surveilla nce Sarina Moreno, PA 02/05/2021 Z79.01 long term acute care registered nurse (current) use of antic oagulants Katie E Symenow, PA-C 01/28/2021 Z79.01 retirement (current) use of antic oagulants Katie E Symenow, PA-C 01/28/2021 I48.21 Permanent atrial fibrillation Ka te E Symenow, PA-C 01/22/2021 I48.21 Permanent atrial fibrillation Francisco Javier Diggs MD 01/22/2021 E66.8 Other obesity Paul Diggs MD 01/21/2021 Z79.01 retirement (current) use of antic oagulants Katie E Symenow, PA-C 01/15/2021 Z79.01 retirement (current) use of antic oagulants Katie E Symenow, PA-C 01/07/2021 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 Paco, PA 01/07/2021 Z79.01 retirement (current) use of antic oagulants Sarina L. 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 of antic oagulants Katie E [...] Ka te Darlene Cochranw, PA-C 10/25/2020 Z79.01 retirement (current) use of antic oagulants Katie E Symenow, PA-C 09/26/2020 I48.21 Permanent atrial fibrillation Francisco Javier Diggs MD 09/26/2020 I11.0 Hypertensive heart disease with heart failure Paul Diggs MD 09/24/2020 I48.21 Permanent atrial fibrillation Ka te E Symenow, PA-C 09/24/2020 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
--- OUTSIDE RECORDS SUMMARY | 2021-04-26 19:31 | CCD | Continuity of Care Document ---
Author Author Edson MORENO [place] Organization Unknown Address [address] [place] [address], [place] [address] Phone [phone] Care Team Providers Care Sweatband Shaper Name Role Phone Marcus Estevez MD AUTM [phone] Mario Monet MD AUTM Edgar Andrews MD AUTM [phone] Problems Active Problems Provider Date Heart failure [...] Ser/Plas 1090 Procedures Date Code Description Status 02/27/2021 90424 Anticoagulant MGMT F or Patient Taking Warfarin, Inc Review & Intr Completed 02/21/2021 51841 Anticoagulant MGMT F or Patient Taking Warfarin, Inc Review & Intr Completed 02/12/2021 71513 Anticoagulant MGMT F or Patient Taking Warfarin, Inc Review & Intr Completed 02/06/2021 11445 Office/Outpatient Established Mo d MDM 30-39 Min Completed 02/06/2021 66686 ECG 12-Lead Completed 02/05/2021 63009 Anticoagulant MGMT F or Patient Taking Warfarin, Inc Review & Intr Completed 01/28/2021 32589 Anticoagulant MGMT F or Patient Taking Warfarin, Inc Review & Intr Completed 01/21/2021 90061 Anticoagulant MGMT F or Patient Taking Warfarin, Inc Review & Intr Completed 01/15/2021 56570 Anticoagulant MGMT F or Patient Taking Warfarin, Inc Review & Intr Completed 01/07/2021 12124 Anticoagulant MGMT F or Patient Taking Warfarin, Inc Review & Intr Completed 12/31/2020 02862 Anticoagulant MGMT F or Patient Taking Warfarin, Inc Review & Intr Completed 12/28/2020 94065 Anticoagulant MGMT F or Patient Taking Warfarin, Inc Review & Intr Completed 12/25/2020 43002 Echocardiogram 2-D Doppler Color Completed 12/20/2020 22417 Chronic Care Management Services Ea Addl 20 Min Completed 12/20/2020 77148 Chronic Care MGMT 20 Mins Clinical Staff Time Per Calendar Month Completed 12/11/2020 81366 Anticoagulant MGMT F or Patient Taking Warfarin, Inc Review & Intr Completed 12/04/2020 94593 Anticoagulant MGMT F or Patient Taking Warfarin, Inc Review & Intr Completed 11/21/2020 01675 Chronic Care MGMT 20 Mins Clinical Staff Time Per Calendar Month Completed 11/21/2020 22154 Chronic Care Management Services Ea Addl 20 Min Completed 11/20/2020 60695 Anticoagulant MGMT F or Patient Taking Warfarin, Inc Review & Intr Completed 11/01/2020 16168 Complex Chronic Care MGMT Servic e Ea Addl 30 Min Completed 11/01/2020 69370 Complex Chronic Care Management SVC 1St 60 Min Completed 10/25/2020 81347 Anticoagulant MGMT F or Patient Taking Warfarin, Inc Review & Intr Completed 09/26/2020 16643 Chronic Care MGMT 20 Mins Clinical Staff Time Per Calendar Month Completed 09/26/2020 78053 Chronic Care Management Services Ea Addl 20 Min Completed 09/24/2020 11338 Anticoagulant MGMT F or Patient Taking Warfarin, Inc Review & Intr Completed 09/13/2020 01644 Anticoagulant MGMT F or Patient Taking Warfarin, Inc Review & Intr Completed 09/05/2020 31312 Anticoagulant MGMT F or Patient Taking Warfarin, [...] atrial fibrillation I11.0 Hypertensive heart disease w [facility] heart failure Office Visit 11/01/2020 7:49a Main Office Paul Diggs MD I48.21 Permanent atrial fibrillation I11.0 Hypertensive heart disease w [facility] heart failure Office Visit 09/26/2020 2:54p Main Office Paul Diggs MD I48.21 Permanent atrial fibrillation I11.0 Hypertensive heart disease w [facility] heart failure Assessments Date Code Description Provider 02/27/2021 I48.21 Permanent atrial fibrillation Ca OMERO Baker 02/27/2021 Z79.01 FDC (current) use of antic melaniegulanOMERO Obrien 02/21/2021 I48.21 Permanent atrial fibrillation Ca OMERO Baker 02/21/2021 I34.2 Nonrheumatic mitral (valve) sten osis OMERO Duron 02/21/2021 Z79.01 roasterman (current) use of antic oagulants OMERO Duron 02/12/2021 I48.21 Permanent atrial fibrillation Familia Mccray PA-C 02/12/2021 Z79.01 roasterman (current) use of antic melaniegulanbogdan Sewell PA-C 02/06/2021 I48.21 Permanent atrial fibrillation Ca sosa Moreno, PA 02/06/2021 I11.0 Hypertensive heart disease with heart failure Sarina Moreno, OMERO 02/06/2021 I50.32 Chronic diastolic (congestive) h eart failure Sarina Moreno PA 02/06/2021 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 OMERO Duron 02/06/2021 I34.2 Nonrheumatic mitral (valve) sten osis Sarina Moreno, PA 02/06/2021 R94.31 Abnormal electrocardiogram [ECG] [EKG] OMERO Duron 02/06/2021 E66.8 Other obesity Sarina Orozco Cha, se, OMERO 02/06/2021 Z71.3 Dietary counseling and surveilla nce Sarina Moreno PA 02/05/2021 Z79.01 FDC (current) use of antic oagulants Katie E Symenow, PA-C 01/28/2021 Z79.01 FDC (current) use of antic oagulants Katie E Symenow, PA-C 01/28/2021 I48.21 Permanent atrial fibrillation Ka te Darlene Symsalow, PA-C 01/21/2021 Z79.01 roasterman (current) use of antic oagulants Katie E Symenow, PA-C 01/15/2021 Z79.01 FDC (current) use of antic oagulants Katie E Symenow, PA-C 01/07/2021 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 Sarina Moreno, PA 01/07/2021 Z79.01 roasterman (current) use of antic oagulants Sarina Moreno, PA 12/31/2020 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 Katie E Symsalow, PA-C 12/31/2020 I48.21 Permanent atrial fibrillation Ka te E Symsalow, PA-C 12/31/2020 Z79.01 FDC (current) use of antic oagulants Katie E Symenow, PA-C 12/28/2020 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 Sarina Moreno, PA 12/28/2020 I48.21 Permanent atrial fibrillation Ca sosa Moreno, PA 12/28/2020 Z79.01 roasterman (current) use of antic oagulants Sarina Moreno, PA 12/25/2020 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 ECHO 12/20/2020 I48.21 Permanent atrial fibrillation Francisco Javier Diggs MD 12/20/2020 E66.8 Other obesity Paul Diggs MD 12/11/2020 I48.21 Permanent atrial fibrillation Ka te E Symenow, PA-C 12/11/2020 Z79.01 roasterman (current) use of antic oagulants Katie E Symenow, PA-C 12/04/2020 I48.21 Permanent atrial fibrillation Ka te E Symenow, PA-C 12/04/2020 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 Katie E Symenow, PA-C 12/04/2020 Z79.01 FDC (current) use of antic oagulants Katie E Symenow, PA-C 11/21/2020 I48.21 Permanent atrial fibrillation Francisco Javier Diggs MD 11/21/2020 I11.0 Hypertensive heart disease with heart failure Paul Diggs MD 11/20/2020 I48.21 Permanent atrial fibrillation Ka te E Symenow, PA-C 11/20/2020 Z79.01 FDC (current) use of antic oagulants Katie Sewell, PA-C 11/01/2020 I48.21 Permanent atrial fibrillation Francisco Javier Diggs MD 11/01/2020 I11.0 Hypertensive heart disease with heart failure Paul Diggs MD 10/25/2020 I48.21 Permanent atrial fibrillation Ka te E Symenow, PA-C 10/25/2020 Z79.01 FDC (current) use of antic oagulants Katie Sewell, PA-C 09/26/2020 I48.21 Permanent atrial fibrillation Francisco Javier Diggs MD 09/26/2020 I11.0 Hypertensive heart disease with heart failure Paul Diggs MD 09/24/2020 I48.21 Permanent atrial fibrillation Familia Butler Donato, EMILIANOC 09/24/2020 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
--- OUTSIDE RECORDS SUMMARY | 2021-04-26 19:32 | CCD | Continuity of Care Document ---
Author Author Edson LOGAN MD Organization Unknown Address [facility] [place] [address] Phone [phone] Care Team Providers Care Agronomy Advisor Name Role Phone Marcus Estevez MD AUTM [phone] Mario Monet MD AUTM Edgar Andrews MD AUTM [phone] Problems Active Problems Provider Date Heart failure [...] Ser/Plas 1090 Procedures Date Code Description Status 02/12/2021 88978 Anticoagulant MGMT F or Patient Taking Warfarin, Inc Review & Intr Completed 02/06/2021 52436 Office/Outpatient Established Mo d MDM 30-39 Min Completed 02/06/2021 93296 ECG 12-Lead Completed 02/05/2021 28611 Anticoagulant MGMT F or Patient Taking Warfarin, Inc Review & Intr Completed 01/28/2021 01311 Anticoagulant MGMT F or Patient Taking Warfarin, Inc Review & Intr Completed 01/21/2021 43929 Anticoagulant MGMT F or Patient Taking Warfarin, Inc Review & Intr Completed 01/15/2021 82911 Anticoagulant MGMT F or Patient Taking Warfarin, Inc Review & Intr Completed 01/07/2021 97336 Anticoagulant MGMT F or Patient Taking Warfarin, Inc Review & Intr Completed 12/31/2020 92826 Anticoagulant MGMT F or Patient Taking Warfarin, Inc Review & Intr Completed 12/28/2020 45699 Anticoagulant MGMT F or Patient Taking Warfarin, Inc Review & Intr Completed 12/25/2020 42441 Echocardiogram 2-D Doppler Color Completed 12/20/2020 63963 Chronic Care MGMT 20 Mins Clinical Staff Time Per Calendar Month Completed 12/20/2020 20366 Chronic Care Management Services Ea Addl 20 Min Completed 12/11/2020 74716 Anticoagulant MGMT F or Patient Taking Warfarin, Inc Review & Intr Completed 12/04/2020 17835 Anticoagulant MGMT F or Patient Taking Warfarin, Inc Review & Intr Completed 11/21/2020 08814 Chronic Care MGMT 20 Mins Clinical Staff Time Per Calendar Month Completed 11/21/2020 72188 Chronic Care Management Services Ea Addl 20 Min Completed 11/20/2020 58631 Anticoagulant MGMT F or Patient Taking Warfarin, Inc Review & Intr Completed 11/01/2020 36319 Complex Chronic Care MGMT Servic e Ea Addl 30 Min Completed 11/01/2020 13403 Complex Chronic Care Management SVC 1St 60 Min Completed 10/25/2020 91114 Anticoagulant MGMT F or Patient Taking Warfarin, Inc Review & Intr Completed 09/26/2020 50797 Chronic Care MGMT 20 Mins Clinical Staff Time Per Calendar Month Completed 09/26/2020 61897 Chronic Care Management Services Ea Addl 20 Min Completed 09/24/2020 88694 Anticoagulant MGMT F or Patient Taking Warfarin, Inc Review & Intr Completed 09/13/2020 47024 Anticoagulant MGMT F or Patient Taking Warfarin, Inc Review & Intr Completed 09/05/2020 37295 Anticoagulant MGMT F or Patient Taking Warfarin, Inc Review & Intr Completed 08/24/2020 00550 Chronic Care MGMT 20 Mins Clinical Staff Time Per Calendar Month Completed 08/24/2020 75769 Chronic Care Management Services Ea Addl 20 Min Completed Medical Devices Description No Information Available [...] atrial fibrillation I11.0 Hypertensive heart disease w [facility] heart failure Office Visit 11/01/2020 7:49a Main Office Paul Logan MD I48.21 Permanent atrial fibrillation I11.0 Hypertensive heart disease w [facility] heart failure Office Visit 09/26/2020 2:54p Main Office Paul Logan MD I48.21 Permanent atrial fibrillation I11.0 Hypertensive heart disease w [facility] heart failure Office Visit 08/24/2020 11:25a Main Office Paul Logan MD I48.21 Permanent atrial fibrillation I34.2 Nonrheumatic mitral (valve) stenosis E66.8 Other obesity Assessments Date Code Description Provider 02/12/2021 I48.21 Permanent atrial fibrillation Familia Mccray PA-C 02/12/2021 Z79.01 computer terminal operator (current) use of antic oagulants Katie Sewell PA-C 02/06/2021 I48.21 Permanent atrial fibrillation Ca OMERO Baker 02/06/2021 I11.0 Hypertensive heart disease with heart failure OMERO Duron 02/06/2021 I50.32 Chronic diastolic (congestive) h eart failure OMERO Duron 02/06/2021 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 OMERO Duron 02/06/2021 I34.2 Nonrheumatic mitral (valve) sten osis Sarina Antonio, PA 02/06/2021 R94.31 Abnormal electrocardiogram [ECG] [EKG] Sarina Antonio, PA 02/06/2021 E66.8 Other obesity Sarina Orozco Cha, se, PA 02/06/2021 Z71.3 Dietary counseling and surveilla nce Sarina Antonio, PA 02/05/2021 Z79.01 penitentiary (current) use of antic oagulants Katie E Symenow, PA-C 01/28/2021 Z79.01 computer terminal operator (current) use of antic oagulants Katie E Symenow, PA-C 01/28/2021 I48.21 Permanent atrial fibrillation Ka te E Symenow, PA-C 01/21/2021 Z79.01 computer terminal operator (current) use of antic oagulants Katie E Symenow, PA-C 01/15/2021 Z79.01 computer terminal operator (current) use of antic oagulants Katie E Symenow, PA-C 01/07/2021 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 Sarina Antonio, PA 01/07/2021 Z79.01 penitentiary (current) use of antic oagulants Sarina Antonio, PA 12/31/2020 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 Katie E Symenow, PA-C 12/31/2020 I48.21 Permanent atrial fibrillation Ka te E Symenow, PA-C 12/31/2020 Z79.01 computer terminal operator (current) use of antic oagulants Katie E Symenow, PA-C 12/28/2020 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 Sarina Antonio, PA 12/28/2020 I48.21 Permanent atrial fibrillation Ca sosa Antonio, PA 12/28/2020 Z79.01 computer terminal operator (current) use of antic oagulants Sarina Antonio, PA 12/25/2020 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 ECHO 12/20/2020 I48.21 Permanent atrial fibrillation Ja mes E Logan, MD 12/20/2020 E66.8 Other obesity Paul Logan MD 12/11/2020 I48.21 Permanent atrial fibrillation Ka te E Symenow, PA-C 12/11/2020 Z79.01 computer terminal operator (current) use of antic oagulants Katie E Symenow, PA-C 12/04/2020 I48.21 Permanent atrial fibrillation Ka te E Symenow, PA-C 12/04/2020 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 Katie E Symenow, PA-C 12/04/2020 Z79.01 penitentiary (current) use of antic oagulants Katie E Symenow, PA-C 11/21/2020 I48.21 Permanent atrial fibrillation Francisco Javier Logan MD 11/21/2020 I11.0 Hypertensive heart disease with heart failure Paul Logan MD 11/20/2020 I48.21 Permanent atrial fibrillation Ka te E Symenow, PA-C 11/20/2020 Z79.01 computer terminal operator (current) use of antic oagulants Katie E Symenow, PA-C 11/01/2020 I48.21 Permanent atrial fibrillation Francisco Javier Logan MD 11/01/2020 I11.0 Hypertensive heart disease with heart failure Paul Logan MD 10/25/2020 I48.21 Permanent atrial fibrillation Ka te E Symenow, PA-C 10/25/2020 Z79.01 computer terminal operator (current) use of antic oagulants Katie E Symenow, PA-C 09/26/2020 I48.21 Permanent atrial fibrillation Francisco Javier Logan MD 09/26/2020 I11.0 Hypertensive heart disease with heart failure Paul Logan MD 09/24/2020 I48.21 Permanent atrial fibrillation Ka te E Symenow, PA-C 09/24/2020 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 Katie E Symenow, PA-C 09/24/2020 Z79.01 penitentiary (current) use of antic oagulants Katie E Symenow, PA-C 09/13/2020 Z79.01 penitentiary (current) use of antic oagulants Katie Colon EMILIANO SewellC 09/13/2020 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
--- OUTSIDE RECORDS SUMMARY | 2021-04-26 19:32 | CCD | Continuity of Care Document ---
Author Author Edson LOGAN MD Organization Unknown Address [facility] [place] [address] Phone [phone] Care Team Providers Care Manager Games Name Role Phone Marcus Estevez MD AUTM [phone] Mario Monet MD AUTM Edgar Andrews MD AUTM [phone] Problems Active Problems Provider Date Heart failure [...] 1090 Procedures Date Code Description Status 02/12/2021 48460 Anticoagulant MGMT F or Patient Taking Warfarin, Inc Review & Intr Completed 02/06/2021 83684 Office/Outpatient Established Mo d MDM 30-39 Min Completed 02/06/2021 12683 ECG 12-Lead Completed 02/05/2021 41146 Anticoagulant MGMT F or Patient Taking Warfarin, Inc Review & Intr Completed 01/28/2021 91201 Anticoagulant MGMT F or Patient Taking Warfarin, Inc Review & Intr Completed 01/21/2021 51660 Anticoagulant MGMT F or Patient Taking Warfarin, Inc Review & Intr Completed 01/15/2021 20858 Anticoagulant MGMT F or Patient Taking Warfarin, Inc Review & Intr Completed 01/07/2021 43148 Anticoagulant MGMT F or Patient Taking Warfarin, Inc Review & Intr Completed 12/31/2020 55484 Anticoagulant MGMT F or Patient Taking Warfarin, Inc Review & Intr Completed 12/28/2020 79410 Anticoagulant MGMT F or Patient Taking Warfarin, Inc Review & Intr Completed 12/25/2020 11133 Echocardiogram 2-D Doppler Color Completed 12/20/2020 30988 Chronic Care MGMT 20 Mins Clinical Staff Time Per Calendar Month Completed 12/20/2020 04147 Chronic Care Management Services Ea Addl 20 Min Completed 12/11/2020 99331 Anticoagulant MGMT F or Patient Taking Warfarin, Inc Review & Intr Completed 12/04/2020 28178 Anticoagulant MGMT F or Patient Taking Warfarin, Inc Review & Intr Completed 11/21/2020 54130 Chronic Care MGMT 20 Mins Clinical Staff Time Per Calendar Month Completed 11/21/2020 60267 Chronic Care Management Services Ea Addl 20 Min Completed 11/20/2020 05751 Anticoagulant MGMT F or Patient Taking Warfarin, Inc Review & Intr Completed 11/01/2020 59805 Complex Chronic Care MGMT Servic e Ea Addl 30 Min Completed 11/01/2020 99083 Complex Chronic Care Management SVC 1St 60 Min Completed 10/25/2020 13342 Anticoagulant MGMT F or Patient Taking Warfarin, Inc Review & Intr Completed 09/26/2020 19032 Chronic Care MGMT 20 Mins Clinical Staff Time Per Calendar Month Completed 09/26/2020 36091 Chronic Care Management Services Ea Addl 20 Min Completed 09/24/2020 35653 Anticoagulant MGMT F or Patient Taking Warfarin, Inc Review & Intr Completed 09/13/2020 10472 Anticoagulant MGMT F or Patient Taking Warfarin, Inc Review & Intr Completed 09/05/2020 40994 Anticoagulant MGMT F or Patient Taking Warfarin, Inc Review & Intr Completed 08/24/2020 51678 Chronic Care MGMT 20 Mins Clinical Staff Time Per Calendar Month Completed 08/24/2020 39434 Chronic Care Management Services Ea Addl 20 [...] atrial fibrillation I11.0 Hypertensive heart disease w [facility] heart failure Office Visit 11/01/2020 7:49a Main Office Paul Logan MD I48.21 Permanent atrial fibrillation I11.0 Hypertensive heart disease w [facility] heart failure Office Visit 09/26/2020 2:54p Main Office Paul Logan MD I48.21 Permanent atrial fibrillation I11.0 Hypertensive heart disease w [facility] heart failure Office Visit 08/24/2020 11:25a Main Office Paul Logan MD I48.21 Permanent atrial fibrillation I34.2 Nonrheumatic mitral (valve) stenosis E66.8 Other obesity Assessments Date Code Description Provider 02/12/2021 I48.21 Permanent atrial fibrillation Familia Mccray PA-C 02/12/2021 Z79.01 termite treater (current) use of antic oagulants Katie Sewell [...] surveilla nce Sarina Antonio, PA 02/05/2021 Z79.01 shelter (current) use of antic oagulants Katie E Symenow, PA-C 01/28/2021 Z79.01 termite treater (current) use of antic oagulants Katie E Symenow, PA-C 01/28/2021 I48.21 Permanent atrial fibrillation Ka te E Symenow, PA-C 01/21/2021 Z79.01 termite treater (current) use of antic oagulants Katie E Symenow, PA-C 01/15/2021 Z79.01 termite treater (current) use of antic oagulants Katie E Symenow, PA-C 01/07/2021 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 Sarina Antonio, PA 01/07/2021 Z79.01 shelter (current) use of antic oagulants Sarina Antonio, PA 12/31/2020 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 Katie E Symenow, PA-C 12/31/2020 I48.21 Permanent atrial fibrillation Ka te E Symenow, PA-C 12/31/2020 Z79.01 termite treater (current) use of antic oagulants Katie E Symenow, PA-C 12/28/2020 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 Sarina Antonio, PA 12/28/2020 I48.21 Permanent atrial fibrillation Ca sosa Antonio, PA 12/28/2020 Z79.01 termite treater (current) use of antic oagulants Sarina Antonio, PA 12/25/2020 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 ECHO 12/20/2020 I48.21 Permanent atrial fibrillation Ja mes E Logan, MD 12/20/2020 E66.8 Other obesity Paul Logan MD 12/11/2020 I48.21 Permanent atrial fibrillation Ka te E Symenow, PA-C 12/11/2020 Z79.01 termite treater (current) use of antic oagulants Katie E Symenow, PA-C 12/04/2020 I48.21 Permanent atrial fibrillation Ka te E Symenow, PA-C 12/04/2020 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 Katie E Symenow, PA-C 12/04/2020 Z79.01 shelter (current) use of antic oagulants Katie E Symenow, PA-C 11/21/2020 I48.21 Permanent atrial fibrillation Francisco Javier Logan MD 11/21/2020 I11.0 Hypertensive heart disease with heart failure Paul Logan MD 11/20/2020 I48.21 Permanent atrial fibrillation Ka te E Symenow, PA-C 11/20/2020 Z79.01 termite treater (current) use of antic oagulants Katie E Symenow, PA-C 11/01/2020 I48.21 Permanent atrial fibrillation Francisco Javier Logan MD 11/01/2020 I11.0 Hypertensive heart disease with heart failure Paul Logan MD 10/25/2020 I48.21 Permanent atrial fibrillation Ka te E Symenow, PA-C 10/25/2020 Z79.01 termite treater (current) use of antic oagulants Katie E Symenow, PA-C 09/26/2020 I48.21 Permanent atrial fibrillation Francisco Javier Logan MD 09/26/2020 I11.0 Hypertensive heart disease with heart failure Paul Logan MD 09/24/2020 I48.21 Permanent atrial fibrillation Ka te E Symenow, PA-C 09/24/2020 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
--- OUTSIDE RECORDS SUMMARY | 2021-04-26 19:32 | CCD | Continuity of Care Document ---
Author Author Edson MORENO [place] Organization Unknown Address [address] [place] [address], [place] [address] Phone [phone] Care Team Providers Care Enterostomal Therapy Nurse Name Role Phone Marcus Estevez MD AUTM [phone] Mario Monet MD AUTM Edgar Andrews MD AUTM [phone] Problems Active Problems Provider Date Heart failure Paul Diggs MD Onset: 09/06/2012 Atrial fibrillation aPul Diggs MD Onset: 09/06/2012 Electrocardiogram abnormal Paul [...] Ser/Plas 1090 Procedures Date Code Description Status 02/06/2021 76209 ECG 12-Lead Completed 02/06/2021 20068 Office/Outpatient Established Mo d MDM 30-39 Min Completed 02/05/2021 61825 Anticoagulant MGMT F or Patient Taking Warfarin, Inc Review & Intr Completed 01/28/2021 78442 Anticoagulant MGMT F or Patient Taking Warfarin, Inc Review & Intr Completed 01/21/2021 44770 Anticoagulant MGMT F or Patient Taking Warfarin, Inc Review & Intr Completed 01/15/2021 60139 Anticoagulant MGMT F or Patient Taking Warfarin, Inc Review & Intr Completed 01/07/2021 58484 Anticoagulant MGMT F or Patient Taking Warfarin, Inc Review & Intr Completed 12/31/2020 46955 Anticoagulant MGMT F or Patient Taking Warfarin, Inc Review & Intr Completed 12/28/2020 46009 Anticoagulant MGMT F or Patient Taking Warfarin, Inc Review & Intr Completed 12/25/2020 09256 Echocardiogram 2-D Doppler Color Completed 12/20/2020 32896 Chronic Care MGMT 20 Mins Clinical Staff Time Per Calendar Month Completed 12/20/2020 76907 Chronic Care Management Services Ea Addl 20 Min Completed 12/11/2020 29582 Anticoagulant MGMT F or Patient Taking Warfarin, Inc Review & Intr Completed 12/04/2020 87213 Anticoagulant MGMT F or Patient Taking Warfarin, Inc Review & Intr Completed 11/21/2020 37712 Chronic Care MGMT 20 Mins Clinical Staff Time Per Calendar Month Completed 11/21/2020 37844 Chronic Care Management Services Ea Addl 20 Min Completed 11/20/2020 88527 Anticoagulant MGMT F or Patient Taking Warfarin, Inc Review & Intr Completed 11/01/2020 90035 Complex Chronic Care MGMT Servic e Ea Addl 30 Min Completed 11/01/2020 84922 Complex Chronic Care Management SVC 1St 60 Min Completed 10/25/2020 31969 Anticoagulant MGMT F or Patient Taking Warfarin, Inc Review & Intr Completed 09/26/2020 59435 Chronic Care MGMT 20 Mins Clinical Staff Time Per Calendar Month Completed 09/26/2020 87760 Chronic Care Management Services Ea Addl 20 Min Completed 09/24/2020 29457 Anticoagulant MGMT F or Patient Taking Warfarin, Inc Review & Intr Completed 09/13/2020 10248 Anticoagulant MGMT F or Patient Taking Warfarin, Inc Review & Intr Completed 09/05/2020 87566 Anticoagulant MGMT F or Patient Taking Warfarin, Inc Review & Intr Completed 08/24/2020 53975 Chronic Care MGMT 20 Mins Clinical Staff Time Per Calendar Month Completed 08/24/2020 99172 Chronic Care Management Services Ea Addl 20 Min Completed 08/21/2020 95125 Anticoagulant MGMT F or Patient Taking Warfarin, Inc Review & Intr Completed Medical Devices Description No Information Available Encounters Type Date Location Provider Dx Diagnosis Office Visit 02/06/2021 1:00p Main Office OMERO Duron I48 .21 Permanent atrial fibrillation I11.0 Hypertensive heart disease w [facility] heart failure I50.32 Chronic diastolic (congestiv e) heart failure Z95.3 Presence of xenogenic heart valve I34.2 Nonrheumatic mitral (valve) stenosis R94.31 Abnormal electrocardiogram [ ECG] [EKG] E66.8 Other obesity Z71.3 Dietary counseling and surve illance Office Visit 11/21/2020 12:35p Main Office Paul Diggs MD I48.21 Permanent atrial fibrillation I11.0 Hypertensive heart disease w [facility] heart failure Office Visit 11/01/2020 7:49a Main Office Paul Diggs MD I48.21 Permanent atrial fibrillation I11.0 Hypertensive heart disease w [facility] heart failure Office Visit 09/26/2020 2:54p Main Office Paul Diggs MD I48.21 Permanent atrial fibrillation I11.0 Hypertensive heart disease w [facility] heart failure Office Visit 08/24/2020 11:25a Main Office Paul Diggs MD I48.21 Permanent atrial fibrillation I34.2 Nonrheumatic mitral (valve) stenosis E66.8 Other obesity Assessments Date Code Description Provider 02/06/2021 I48.21 Permanent atrial fibrillation Ca OMERO Baker 02/06/2021 I11.0 Hypertensive heart disease with heart failure OMERO Duron 02/06/2021 I50.32 Chronic diastolic (congestive) h eart failure OMERO Duron 02/06/2021 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 OMERO Duron 02/06/2021 I34.2 Nonrheumatic mitral (valve) sten osis OMERO Duron 02/06/2021 R94.31 Abnormal electrocardiogram [ECG] [EKG] OMERO Duron 02/06/2021 E66.8 Other obesity OMERO Murphy Cha, se 02/06/2021 Z71.3 Dietary counseling and surveilla nce Sarina Moreno, PA 02/05/2021 Z79.01 keno terminal operator (current) use of antic oagulants Katie E Symenow, PA-C 01/28/2021 Z79.01 keno terminal operator (current) use of antic oagulants Katie E Symenow, PA-C 01/28/2021 I48.21 Permanent atrial fibrillation Ka te E Symenow, PA-C 01/21/2021 Z79.01 [facility] (current) use of antic oagulants Katie E Symenow, PA-C 01/15/2021 Z79.01 [facility] (current) use of antic oagulants Katie E Symenow, PA-C 01/07/2021 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 Apco, PA 01/07/2021 Z79.01 keno terminal operator (current) use of antic oagulants Sarina L. 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 Paco, PA 12/28/2020 I48.21 Permanent atrial fibrillation Ca sosa Moreno, PA 12/28/2020 Z79.01 keno terminal operator (current) use of antic oagulants Sarina L. 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 Katie E Symenow, PA-C 12/04/2020 Z79.01 keno terminal operator (current) use of antic oagulants Katie E Symenow, PA-C 11/21/2020 I48.21 Permanent atrial fibrillation Francisco Javier Diggs MD 11/21/2020 I11.0 Hypertensive heart disease with heart failure Paul Diggs MD 11/20/2020 I48.21 Permanent atrial fibrillation Ka te E Symenow, PA-C 11/20/2020 Z79.01 keno terminal operator (current) use of antic oagulants Katie E Symenow, PA-C 11/01/2020 I48.21 Permanent atrial fibrillation Francisco Javier Diggs MD 11/01/2020 I11.0 Hypertensive heart disease with heart failure Paul Diggs MD 10/25/2020 I48.21 Permanent atrial fibrillation Ka te E Symenow, PA-C 10/25/2020 Z79.01 [facility] (current) use of antic oagulants Katie E Symenow, PA-C 09/26/2020 I48.21 Permanent atrial fibrillation Francisco Javier Diggs MD 09/26/2020 I11.0 Hypertensive heart disease with heart failure Paul Diggs MD 09/24/2020 I48.21 Permanent atrial fibrillation Ka te E Symenow, PA-C 09/24/2020 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 Katie E Symenow, PA-C 09/24/2020 Z79.01 keno terminal operator (current) use of antic oagulants Katie E Symenow, PA-C 09/13/2020 Z79.01 keno terminal operator (current) use of antic oagulants Katie E Symenow, PA-C 09/13/2020 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 Katie E Symenow, PA-C 09/05/2020 Z79.01 keno terminal operator (current) use of antic oagulants Katie E Symenow, PA-C 09/05/2020 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
--- OUTSIDE RECORDS SUMMARY | 2021-04-26 19:32 | CCD | Continuity of Care Document ---
Author Author Edson MORENO [place] Organization Unknown Address [address] [place] [address], [place] [address] Phone [phone] Care Team Providers Care Detacker Name Role Phone Marcus Estevez MD AUTM [phone] Mario Monet MD AUTM Edgar Andrews MD AUTM [phone] Problems Active Problems Provider Date Heart failure [...] Ser/Plas 1090 Procedures Date Code Description Status 02/21/2021 23287 Anticoagulant MGMT F or Patient Taking Warfarin, Inc Review & Intr Completed 02/12/2021 93590 Anticoagulant MGMT F or Patient Taking Warfarin, Inc Review & Intr Completed 02/06/2021 91106 Office/Outpatient Established Mo d MDM 30-39 Min Completed 02/06/2021 27982 ECG 12-Lead Completed 02/05/2021 83677 Anticoagulant MGMT F or Patient Taking Warfarin, Inc Review & Intr Completed 01/28/2021 78592 Anticoagulant MGMT F or Patient Taking Warfarin, Inc Review & Intr Completed 01/21/2021 23011 Anticoagulant MGMT F or Patient Taking Warfarin, Inc Review & Intr Completed 01/15/2021 95692 Anticoagulant MGMT F or Patient Taking Warfarin, Inc Review & Intr Completed 01/07/2021 82623 Anticoagulant MGMT F or Patient Taking Warfarin, Inc Review & Intr Completed 12/31/2020 94322 Anticoagulant MGMT F or Patient Taking Warfarin, Inc Review & Intr Completed 12/28/2020 38829 Anticoagulant MGMT F or Patient Taking Warfarin, Inc Review & Intr Completed 12/25/2020 51193 Echocardiogram 2-D Doppler Color Completed 12/20/2020 83005 Chronic Care MGMT 20 Mins Clinical Staff Time Per Calendar Month Completed 12/20/2020 27027 Chronic Care Management Services Ea Addl 20 Min Completed 12/11/2020 42209 Anticoagulant MGMT F or Patient Taking Warfarin, Inc Review & Intr Completed 12/04/2020 82620 Anticoagulant MGMT F or Patient Taking Warfarin, Inc Review & Intr Completed 11/21/2020 91437 Chronic Care MGMT 20 Mins Clinical Staff Time Per Calendar Month Completed 11/21/2020 76913 Chronic Care Management Services Ea Addl 20 Min Completed 11/20/2020 14539 Anticoagulant MGMT F or Patient Taking Warfarin, Inc Review & Intr Completed 11/01/2020 22388 Complex Chronic Care MGMT Servic e Ea Addl 30 Min Completed 11/01/2020 49585 Complex Chronic Care Management SVC 1St 60 Min Completed 10/25/2020 57397 Anticoagulant MGMT F or Patient Taking Warfarin, Inc Review & Intr Completed 09/26/2020 42748 Chronic Care MGMT 20 Mins Clinical Staff Time Per Calendar Month Completed 09/26/2020 09933 Chronic Care Management Services Ea Addl 20 Min Completed 09/24/2020 58973 Anticoagulant MGMT F or Patient Taking Warfarin, Inc Review & Intr Completed 09/13/2020 09806 Anticoagulant MGMT F or Patient Taking Warfarin, Inc Review & Intr Completed 09/05/2020 20040 Anticoagulant MGMT F or Patient Taking Warfarin, Inc Review & Intr Completed 08/24/2020 27107 Chronic Care MGMT 20 Mins Clinical Staff Time Per Calendar Month Completed 08/24/2020 47638 Chronic Care Management Services Ea Addl 20 Min Completed Medical Devices Description No Information Available Encounters Type Date Location Provider Dx Diagnosis Office Visit 02/06/2021 1:00p Main Office OMERO Duron I48 .21 Permanent atrial fibrillation I11.0 Hypertensive heart disease w [facility] heart failure I50.32 Chronic diastolic (congestiv [...] atrial fibrillation I11.0 Hypertensive heart disease w [facility] heart failure Office Visit 11/01/2020 7:49a Main Office Paul Diggs MD I48.21 Permanent atrial fibrillation I11.0 Hypertensive heart disease w [facility] heart failure Office Visit 09/26/2020 2:54p Main Office Paul Diggs MD I48.21 Permanent atrial fibrillation I11.0 Hypertensive heart disease w [facility] heart failure Office Visit 08/24/2020 11:25a Main Office Paul Diggs MD I48.21 Permanent atrial fibrillation I34.2 Nonrheumatic mitral (valve) stenosis E66.8 Other obesity Assessments Date Code Description Provider 02/21/2021 I48.21 Permanent atrial fibrillation Ca OMERO Baker 02/21/2021 I34.2 Nonrheumatic mitral (valve) sten osis OMERO Duron 02/21/2021 Z79.01 detention (current) use of antic oagulants OMERO Duron 02/12/2021 I48.21 Permanent atrial fibrillation Familia Mccray PA-C 02/12/2021 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 OMERO Earl-C 02/06/2021 I48.21 Permanent atrial fibrillation Ca sosa Moreno, PA 02/06/2021 I11.0 Hypertensive heart disease with heart failure Sarina Moreno, PA 02/06/2021 I50.32 Chronic diastolic (congestive) h eart failure Sarina Moreno, PA 02/06/2021 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 Sarina Moreno PA 02/06/2021 I34.2 Nonrheumatic mitral (valve) sten osis Sarina Moreno, PA 02/06/2021 R94.31 Abnormal electrocardiogram [ECG] [EKG] Sarina Moreno PA 02/06/2021 E66.8 Other obesity Sarina Orozco Cha, se, PA 02/06/2021 Z71.3 Dietary counseling and surveilla nce Sarina Moreno PA 02/05/2021 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 Katie E Symenow, PA-C 01/28/2021 Z79.01 detention (current) use of antic oagulants Katie E Symenow, PA-C 01/28/2021 I48.21 Permanent atrial fibrillation Ka te E Sammiew, PA-C 01/21/2021 Z79.01 detention (current) use of antic oagulants Katie E Symenow, PA-C 01/15/2021 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 Katie E Symenow, PA-C 01/07/2021 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 Sarina Moreno, PA 01/07/2021 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 Sarina Moreno, PA 12/31/2020 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 Katie E Symenow, PA-C 12/31/2020 I48.21 Permanent atrial fibrillation Ka te E Symsalow, PA-C 12/31/2020 Z79.01 detention (current) use of antic oagulants Katie E Symenow, PA-C 12/28/2020 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 Sarina Moreno, PA 12/28/2020 I48.21 Permanent atrial fibrillation Ca sosa Moreno, PA 12/28/2020 Z79.01 detention (current) use of antic oagulants Sarina Moreno, PA 12/25/2020 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 ECHO 12/20/2020 I48.21 Permanent atrial fibrillation Francisco Javier Diggs MD 12/20/2020 E66.8 Other obesity Paul Diggs MD 12/11/2020 I48.21 Permanent atrial fibrillation Ka te E Symenow, PA-C 12/11/2020 Z79.01 detention (current) use of antic oagulants Katie E Symenow, PA-C 12/04/2020 I48.21 Permanent atrial fibrillation Ka te E Symenow, PA-C 12/04/2020 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 Katie E Symenow, PA-C 12/04/2020 Z79.01 detention (current) use of antic oagulants Katie E Symenow, PA-C 11/21/2020 I48.21 Permanent atrial fibrillation Francisco Javier Diggs MD 11/21/2020 I11.0 Hypertensive heart disease with heart failure Paul Diggs MD 11/20/2020 I48.21 Permanent atrial fibrillation Ka te E Symenow, PA-C 11/20/2020 Z79.01 detention (current) use of antic oagulants Katie Colon Symenow, PA-C 11/01/2020 I48.21 Permanent atrial fibrillation Francisco Javier Diggs MD 11/01/2020 I11.0 Hypertensive heart disease with heart failure Paul Diggs MD 10/25/2020 I48.21 Permanent atrial fibrillation Ka te E Symsalow, PA-C 10/25/2020 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 Katie E Symsalow, PA-C 09/26/2020 I48.21 Permanent atrial fibrillation Francisco Javier Diggs MD 09/26/2020 I11.0 Hypertensive heart disease with heart failure Paul Diggs MD 09/24/2020 I48.21 Permanent atrial fibrillation Familia Butler Donato, PA-C 09/24/2020 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 Katie Contrerassalow, PA-C 09/24/2020 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 Katie E Symenow, PA-C 09/13/2020 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
--- OUTSIDE RECORDS SUMMARY | 2021-04-26 19:32 | CCD | Continuity of Care Document ---
Author Author Edson MORENO [place] Organization Unknown Address [address] [place] [address], [place] [address] Phone [phone] Care Team Providers Care Psychiatric Nursing Assistant Name Role Phone Marcus Estevez MD AUTM [phone] Mario Monet MD AUTM Edgar Andrews MD AUTM [phone] Problems Active Problems Provider Date Heart failure [...] 1090 Procedures Date Code Description Status 02/21/2021 95534 Anticoagulant MGMT F or Patient Taking Warfarin, Inc Review & Intr Completed 02/12/2021 85433 Anticoagulant MGMT F or Patient Taking Warfarin, Inc Review & Intr Completed 02/06/2021 51417 Office/Outpatient Established Mo d MDM 30-39 Min Completed 02/06/2021 88314 ECG 12-Lead Completed 02/05/2021 82261 Anticoagulant MGMT F or Patient Taking Warfarin, Inc Review & Intr Completed 01/28/2021 82899 Anticoagulant MGMT F or Patient Taking Warfarin, Inc Review & Intr Completed 01/21/2021 33477 Anticoagulant MGMT F or Patient Taking Warfarin, Inc Review & Intr Completed 01/15/2021 17848 Anticoagulant MGMT F or Patient Taking Warfarin, Inc Review & Intr Completed 01/07/2021 50866 Anticoagulant MGMT F or Patient Taking Warfarin, Inc Review & Intr Completed 12/31/2020 29572 Anticoagulant MGMT F or Patient Taking Warfarin, Inc Review & Intr Completed 12/28/2020 67239 Anticoagulant MGMT F or Patient Taking Warfarin, Inc Review & Intr Completed 12/25/2020 93651 Echocardiogram 2-D Doppler Color Completed 12/20/2020 01096 Chronic Care MGMT 20 Mins Clinical Staff Time Per Calendar Month Completed 12/20/2020 13367 Chronic Care Management Services Ea Addl 20 Min Completed 12/11/2020 21956 Anticoagulant MGMT F or Patient Taking Warfarin, Inc Review & Intr Completed 12/04/2020 83588 Anticoagulant MGMT F or Patient Taking Warfarin, Inc Review & Intr Completed 11/21/2020 91816 Chronic Care MGMT 20 Mins Clinical Staff Time Per Calendar Month Completed 11/21/2020 95771 Chronic Care Management Services Ea Addl 20 Min Completed 11/20/2020 05569 Anticoagulant MGMT F or Patient Taking Warfarin, Inc Review & Intr Completed 11/01/2020 08366 Complex Chronic Care MGMT Servic e Ea Addl 30 Min Completed 11/01/2020 52001 Complex Chronic Care Management SVC 1St 60 Min Completed 10/25/2020 77743 Anticoagulant MGMT F or Patient Taking Warfarin, Inc Review & Intr Completed 09/26/2020 65669 Chronic Care MGMT 20 Mins Clinical Staff Time Per Calendar Month Completed 09/26/2020 71411 Chronic Care Management Services Ea Addl 20 Min Completed 09/24/2020 96079 Anticoagulant MGMT F or Patient Taking Warfarin, Inc Review & Intr Completed 09/13/2020 04455 Anticoagulant MGMT F or Patient Taking Warfarin, Inc Review & Intr Completed 09/05/2020 97076 Anticoagulant MGMT F or Patient Taking Warfarin, Inc Review & Intr Completed 08/24/2020 83648 Chronic Care MGMT 20 Mins Clinical Staff Time Per Calendar Month Completed 08/24/2020 83611 Chronic Care Management Services Ea Addl 20 Min Completed Medical Devices Description No Information Available Encounters Type Date Location Provider Dx Diagnosis Office Visit 02/06/2021 1:00p Main Office OMERO Duron I48 .21 Permanent atrial fibrillation I11.0 Hypertensive heart disease w [facility] heart failure I50.32 Chronic diastolic [...] I11.0 Hypertensive heart disease w [facility] heart failure Office Visit 11/01/2020 7:49a Main Office Paul Diggs MD I48.21 Permanent atrial fibrillation I11.0 Hypertensive heart disease w [facility] heart failure Office Visit 09/26/2020 2:54p Main Office aPul Diggs MD I48.21 Permanent atrial fibrillation I11.0 Hypertensive heart disease w [facility] heart failure Office Visit 08/24/2020 11:25a Main Office Paul Diggs MD I48.21 Permanent atrial fibrillation I34.2 Nonrheumatic mitral (valve) stenosis E66.8 Other obesity Assessments Date Code Description Provider 02/12/2021 I48.21 Permanent atrial fibrillation Familia Mccray PA-C 02/12/2021 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 Katie Sewell [...] surveilla nce Sarina Moreno, PA 02/05/2021 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 Katie E Symenow, PA-C 01/28/2021 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 Katie E Symenow, PA-C 01/28/2021 I48.21 Permanent atrial fibrillation Ka te E Symenow, PA-C 01/21/2021 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 Katie E Symenow, PA-C 01/15/2021 Z79.01 [facility] (current) use of antic oagulants Katie E Symenow, PA-C 01/07/2021 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 Sarina Moreno, PA 01/07/2021 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 Sarina Moreno, PA 12/31/2020 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 Kaite E Symenow, PA-C 12/31/2020 I48.21 Permanent atrial fibrillation Ka te E Symenow, PA-C 12/31/2020 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 Katie E Symenow, PA-C 12/28/2020 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 Sarina Moreno, PA 12/28/2020 I48.21 Permanent atrial fibrillation Ca sosa Moreno, PA 12/28/2020 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 Sarina Moreno, PA 12/25/2020 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 ECHO 12/20/2020 I48.21 Permanent atrial fibrillation Francisco Javier Diggs MD 12/20/2020 E66.8 Other obesity Paul Diggs MD 12/11/2020 I48.21 Permanent atrial fibrillation Ka te E Symenow, PA-C 12/11/2020 Z79.01 [facility] (current) use of antic oagulants Katie E Symenow, PA-C 12/04/2020 I48.21 Permanent atrial fibrillation Ka te E Symenow, PA-C 12/04/2020 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 Katie E Symenow, PA-C 12/04/2020 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 Katie E Symenow, PA-C 11/21/2020 I48.21 Permanent atrial fibrillation Francisco Javier Diggs MD 11/21/2020 I11.0 Hypertensive heart disease with heart failure Paul Diggs MD 11/20/2020 I48.21 Permanent atrial fibrillation Ka te E Symenow, PA-C 11/20/2020 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 Katie E Symenow, PA-C 11/01/2020 I48.21 Permanent atrial fibrillation Francisco Javier Diggs MD 11/01/2020 I11.0 Hypertensive heart disease with heart failure Paul Diggs MD 10/25/2020 I48.21 Permanent atrial fibrillation Ka te E Symenow, PA-C 10/25/2020 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 Katie E Symenow, PA-C 09/26/2020 I48.21 Permanent atrial fibrillation Francisco Javier Diggs MD 09/26/2020 I11.0 Hypertensive heart disease with heart failure Paul Diggs MD 09/24/2020 I48.21 Permanent atrial fibrillation Ka te E Symenow, PA-C 09/24/2020 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 Katie E Symenow, PA-C 09/24/2020 Z79.01 [facility] (current) use of antic oagulants Katie E Symenow, PA-C 09/13/2020 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
--- OUTSIDE RECORDS SUMMARY | 2021-04-26 19:34 | CCD ---
Author Author [facility] Organization [facility] Address Unknown Phone Unavailable Care Team Providers Care Graduate Assistant Name Role Phone Pavelock, Azael Unavailable Unavailable Pavelock, Azael Unavailable Unavailable Pavelock, Azael Unavailable Unavailable Pavelock, Azael Unavailable Unavailable Pavelock, Azael Unavailable Unavailable Pavelock, Azael Unavailable Unavailable Pavelock, Azael Unavailable Unavailable Pavelock, Azael Unavailable Unavailable Pavelock, Azael Unavailable Unavailable Pavelock, Azael Unavailable Unavailable Pavelock, Azael Unavailable Unavailable Pavelock, Azael Unavailable Unavailable Pavelock, Azael Unavailable Unavailable Pavelock, Azael Unavailable Unavailable Pavelock, Azael Unavailable Unavailable Pavelock, Azael Unavailable Unavailable Pavelock, Azael Unavailable Unavailable Pavelock, Azael Unavailable Unavailable Pavelock, Azael Unavailable Unavailable Pavelock, Azael Unavailable Unavailable Pavelock, Azael Unavailable Unavailable Pavelock, Azael Unavailable Unavailable Pavelock, Azael Unavailable Unavailable Pavelock, Azael Unavailable Unavailable Pavelock, Azael Unavailable Unavailable Pavelock, Azael Unavailable Unavailable Pavelock, Azael Unavailable Unavailable Pavelock, Azael Unavailable Unavailable Pavelock, Azael Unavailable Unavailable Pavelock, Azael Unavailable Unavailable Pavelock, Azeal Unavailable Unavailable Pavelock, Azael Unavailable Unavailable Pavelock, Azael Unavailable Unavailable Pavelock, Azael Unavailable Unavailable Pavelock, Azael Unavailable Unavailable Pavelock, Azael Unavailable Unavailable Pavelock, Azael Unavailable Unavailable Pavelock, Azael Unavailable Unavailable Pavelock, Azael Unavailable Unavailable Pavelock, Azael Unavailable Unavailable Pavelock, Azael Unavailable Unavailable Pavelock, Azael Unavailable Unavailable Pavelock, Azael Unavailable Unavailable Pavelock, Azael Unavailable Unavailable Pavelock, Azael Unavailable Unavailable Pavelock, Azael Unavailable Unavailable Pavelock, Azael Unavailable Unavailable Pavelock, Azael Unavailable Unavailable Pavelock, Azael Unavailable Unavailable Pavelock, Azael Unavailable Unavailable Pavelock, Azael Unavailable Unavailable Pavelock, Azael Unavailable Unavailable Pavelock, Azael Unavailable Unavailable Pavelock, Azael Unavailable Unavailable Pavelock, Azael Unavailable Unavailable Pavelock, Azael Unavailable Unavailable Pavelock, Azael Unavailable Unavailable Pavelock, Azael Unavailable Unavailable Pavelock, Azael Unavailable Unavailable Pavelock, Azael Unavailable Unavailable Pavelock, Azael Unavailable Unavailable Pavelock, Azael Unavailable Unavailable Pavelock, Azael Unavailable Unavailable Recore, Carmel Judith WHNP Unavailable Unavailable Recore, Carmel Judith WHNP Unavailable Unavailable Recore, Carmel Judith WHNP Unavailable Unavailable Recore, Carmel Judith WHNP Unavailable Unavailable Recore, Carmel Judith WHNP Unavailable Unavailable Recore, Carmel Judith WHNP Unavailable Unavailable Recore, Carmel Judith WHNP Unavailable Unavailable Recore, Carmel Judith WHNP Unavailable Unavailable Recore, Carmel Judith WHNP Unavailable Unavailable Recore, Carmel Judith WHNP Unavailable Unavailable Recore, Carmel Judith WHNP Unavailable Unavailable Recore, Carmel Judith WHNP Unavailable Unavailable Recore, Carmel Judith WHNP Unavailable Unavailable Recore, Carmel Judith WHNP Unavailable Unavailable Recore, Carmel Judith WHNP Unavailable Unavailable Recore, Carmel Judith WHNP Unavailable Unavailable Recore, Carmel Judith WHNP Unavailable Unavailable Recore, Carmel Judith WHNP Unavailable Unavailable Recore, Carmel Judith WHNP Unavailable Unavailable Recore, Carmel Judith WHNP Unavailable Unavailable Recore, Carmel Judith WHNP Unavailable Unavailable Recore, Carmel Judith WHNP Unavailable Unavailable Recore, Carmel Judith WHNP Unavailable Unavailable Recore, Carmel Judith WHNP Unavailable Unavailable Recore, Carmel Judith WHNP Unavailable Unavailable Recore, Carmel Judith WHNP Unavailable Unavailable Recore, Carmel Judith WHNP Unavailable Unavailable Recore, Carmel Judith WHNP Unavailable Unavailable Recore, Carmel Judith WHNP Unavailable Unavailable Recore, Carmel Judith WHNP Unavailable Unavailable Recore, Carmel Judith WHNP Unavailable Unavailable PETROFF, SUZAN PA Unavailable Unavailable PETROFF, SUZAN PA Unavailable Unavailable PETROFF, SUZAN PA Unavailable Unavailable PETROFF, SUZAN PA Unavailable Unavailable PETROFF, SUZAN PA Unavailable Unavailable PETROFF, SUZAN PA Unavailable Unavailable PETROFF, SUZAN PA Unavailable Unavailable PETROFF, SUZAN PA Unavailable Unavailable Darlene LOGAN MD Unavailable Unavailable Darlene LOGAN MD Unavailable Unavailable LOGANDarlene Montenegro MD Unavailable Unavailable LOGANDarlene Montenegro MD Unavailable Unavailable LOGANDarlene MD Unavailable Unavailable LOGANDarlene Montenegro MD Unavailable Unavailable LOGANDarlene Montenegro MD Unavailable Unavailable LOGAN, E BREANNE GIL Unavailable Unavailable LOGANDarlene Montenegro MD Unavailable Unavailable LOGANDarlene Montenegro MD Unavailable Unavailable LOGANDralene Montenegro MD Unavailable Unavailable Darlene OLGAN MD Unavailable Unavailable LOGANDarlene Montenegro MD Unavailable Unavailable LOGANDarlene Montenegro MD Unavailable Unavailable LOGANDarlene Montenegro MD Unavailable Unavailable LOGANDarlene Montenegro MD Unavailable Unavailable LOGANDarlene Montenegro MD Unavailable Unavailable LOGANDarlene Montenegro MD Unavailable Unavailable Darlene LOGAN MD Unavailable Unavailable LOGANDarlene Montenegro MD Unavailable Unavailable LOGANDarlene Montenegro MD Unavailable Unavailable Darlene LOGAN MD Unavailable Unavailable Darlene LOGAN MD Unavailable Unavailable Darlene LOGAN MD Unavailable Unavailable Darlene LOGAN MD Unavailable Unavailable LOGANDarlene Montenegro MD Unavailable Unavailable Darlene LOGAN MD Unavailable Unavailable Darlene LOGAN MD Unavailable Unavailable Darlene LOGAN MD Unavailable Unavailable Darlene LOGAN MD Unavailable Unavailable Darlene LOGAN MD Unavailable Unavailable Darlene LOGAN MD Unavailable Unavailable Darlene LOGAN MD Unavailable Unavailable Darlene LOGAN MD Unavailable Unavailable Darlene LOGAN MD Unavailable Unavailable Darlene LOGAN MD Unavailable Unavailable Darlene LOGAN MD Unavailable Unavailable Darlene LOGAN MD Unavailable Unavailable Darlene LOGAN MD Unavailable Unavailable Darlene LOGAN MD Unavailable Unavailable Darlene LOGAN MD Unavailable Unavailable Darlene LOGAN MD Unavailable Unavailable Darlene LOGAN MD Unavailable Unavailable Darlene LOGAN MD Unavailable Unavailable Darlene LOGAN MD Unavailable Unavailable Darlene LOGAN MD Unavailable Unavailable Darlene LOGAN MD Unavailable Unavailable LOGANDarlene Montenegro MD Unavailable Unavailable Darlene LOGAN MD Unavailable Unavailable LOGAN, Darlene RAYMUNDO MD Unavailable Unavailable LOGAN, Darelne RAYMUNDO MD Unavailable Unavailable LOGAN, Darlene RAYMUNDO MD Unavailable Unavailable LOGAN, Darlene RAYMUNDO MD Unavailable Unavailable LOGAN, Darlene RAYMUNDO MD Unavailable Unavailable DELORES GIL, CHETNA Unavailable Unavailable MACO GIL, JUVENAL Unavailable Unavailable Estevez, A Marcus MD Unavailable Unavailable Estevez, A Marcus MD Unavailable Unavailable Estevez, A Marcus MD Unavailable Unavailable Estevez, A Marcus MD Unavailable Unavailable Estevez, A Marcus MD Unavailable Unavailable Estevez, A Marcus MD Unavailable Unavailable Estevez, A Marcus MD Unavailable Unavailable Estevez, A Marcus MD Unavailable Unavailable Estevez, A Marcus MD Unavailable Unavailable Estevez, A Marcus MD Unavailable Unavailable Estevez, A Marcus MD Unavailable Unavailable Estevez, A Marcus MD Unavailable Unavailable Estevez, A Marcus MD Unavailable Unavailable Estevez, A Marcus MD Unavailable Unavailable Estevez, A Marcus MD Unavailable Unavailable Estevez, A Marcus MD Unavailable Unavailable Estevez, A Marcus MD Unavailable Unavailable Estevez, A Marcus MD Unavailable Unavailable Estevez, A Marcus MD Unavailable Unavailable Estevez, A Marcus MD Unavailable Unavailable Estevez, A Marcus MD Unavailable Unavailable Estevez, A Marcus MD Unavailable Unavailable Estevez, A Marcus MD Unavailable Unavailable Estevez, A Marcus MD Unavailable Unavailable Estevez, A Marcus MD Unavailable Unavailable Estevez, A Marcus MD Unavailable Unavailable Estevez, A Marcus MD Unavailable Unavailable Estevez, A Marcus MD Unavailable Unavailable Estevez, A Marcus MD Unavailable Unavailable Estevez, A Marcus MD Unavailable Unavailable Estevez, A Marcus MD Unavailable Unavailable Estevez, A Marcus MD Unavailable Unavailable Estevez, A Marcus MD Unavailable Unavailable Estevez, A Marcus MD Unavailable Unavailable Estevez, A Marcus MD Unavailable Unavailable Estevez, A Marcus MD Unavailable Unavailable Estevez, A Marcus MD Unavailable Unavailable Estevez, A Marcus MD Unavailable Unavailable Estevez, A Marcus MD Unavailable Unavailable Estevez, A Marcus MD Unavailable Unavailable Estevez, A Marcus MD Unavailable Unavailable Estevez, A Marcus MD Unavailable Unavailable Estevez, A Marcus MD Unavailable Unavailable Estevez, A Marcus MD Unavailable Unavailable Estevez, A Marcus MD Unavailable Unavailable Estevez, A Marcus MD Unavailable Unavailable Estevez, A Marcus MD Unavailable Unavailable Estevez, A Marcus MD Unavailable Unavailable Estevez, A Marcus MD Unavailable Unavailable Estevez, A Marcus MD Unavailable Unavailable Estevez, A Marcus MD Unavailable Unavailable Estevez, A Marcus MD Unavailable Unavailable Estevez, A Marcus MD Unavailable Unavailable Estevez, A Marcus MD Unavailable Unavailable Estevez, A Marcus MD Unavailable Unavailable Estevez, A Marcus MD Unavailable Unavailable Estevez, A Marcus MD Unavailable Unavailable Estevez, A Marcus MD Unavailable Unavailable Estevez, A Marcus MD Unavailable Unavailable Estevez, A Marcus MD Unavailable Unavailable Estevez, A Marcus MD Unavailable Unavailable Estevez, A Marcus MD Unavailable Unavailable DeBlasio, Moni Quinn MD Unavailable Unavailable DeBlasio, oMni Quinn MD Unavailable Unavailable DeBlasio, Moni Quinn MD Unavailable Unavailable DeBlasio, Moni Quinn MD Unavailable Unavailable DeBlasio, Moni Quinn MD Unavailable Unavailable DeBlasio, Moni Quinn MD Unavailable Unavailable DeBlasio, Moni Quinn MD Unavailable Unavailable DeBlasio, Moni Quinn MD Unavailable Unavailable DeBlasio, Moni Quinn MD Unavailable Unavailable DeBlasio, Moni Quinn MD Unavailable Unavailable DeBlasio, Moni Quinn MD Unavailable Unavailable DeBlasio, Moni Quinn MD Unavailable Unavailable DeBlasio, Moni Quinn MD Unavailable Unavailable DeBlasio, Moni Quinn MD Unavailable Unavailable DeBlasio, Moni Quinn MD Unavailable Unavailable DeBlasio, Moni Quinn MD Unavailable Unavailable DeBlasio, Moni Quinn MD Unavailable Unavailable DeBlasio, Moni Quinn MD Unavailable Unavailable DeBlasio, Moni Quinn MD Unavailable Unavailable DeBlasio, Moni Quinn MD Unavailable Unavailable DeBlasio, Moni Quinn MD Unavailable Unavailable DeBlasio, Moni Quinn MD Unavailable Unavailable DeBlasio, Moni Quinn MD Unavailable Unavailable DeBlasio, Moni Quinn MD Unavailable Unavailable DeBlasio, Moni Quinn MD Unavailable Unavailable DeBlasio, Moni Quinn MD Unavailable Unavailable DeBlasio, Moni Quinn MD Unavailable Unavailable DeBlasio, Moni Quinn MD Unavailable Unavailable DeBlasio, Moni Quinn MD Unavailable Unavailable DeBlasio, Moni Quinn MD Unavailable Unavailable DeBlasio, Moni Quinn MD Unavailable Unavailable DeBlasio, Moni Quinn MD Unavailable Unavailable DeBlasio, Moni Quinn MD Unavailable Unavailable DeBlasio, Moni Quinn MD Unavailable Unavailable DeBlasio, Moni Quinn MD Unavailable Unavailable DeBlasio, Moni Quinn MD Unavailable Unavailable DeBlasio, Moni Quinn MD Unavailable Unavailable DeBlasio, Moni Quinn MD Unavailable Unavailable MondomChetna MD Unavailable Unavailable Chetna Greene MD Unavailable Unavailable Chetna Greene MD Unavailable Unavailable Chetna Greene MD Unavailable Unavailable Chetna Greene MD Unavailable Unavailable Chetna Greene MD Unavailable Unavailable Chetna Greene MD Unavailable Unavailable Chetna Greene MD Unavailable Unavailable Vishal BALLARD MD Unavailable Unavailable Vishal BALLARD MD Unavailable Unavailable Vishal BALLARD MD Unavailable Unavailable Vishal BALLARD MD Unavailable Unavailable Vishal BALLARD MD Unavailable Unavailable Vishal BALLARD MD Unavailable Unavailable BALLARDVishal MD Unavailable Unavailable BALLARDVishal MD Unavailable Unavailable BALLARDVishal MD Unavailable Unavailable BALLARDVishal MD Unavailable Unavailable BALLARDVishal MD Unavailable Unavailable BALLARDVishal MD Unavailable Unavailable BALLARDVishal MD Unavailable Unavailable BALLARDVishal MD Unavailable Unavailable BALLARDVishal MD Unavailable Unavailable BALLARDVishal MD Unavailable Unavailable BALLARDVishal MD Unavailable Unavailable BALLARDVishal MD Unavailable Unavailable BALLARDVishal MD Unavailable Unavailable BALLARDVishal MD Unavailable Unavailable BALLARDVishal MD Unavailable Unavailable BALLARDVishal MD Unavailable Unavailable BALLARDVishal MD Unavailable Unavailable BALLARDVishal MD Unavailable Unavailable BALLARDVishal MD Unavailable Unavailable BALLARDVishal MD Unavailable Unavailable BALLARDVishal MD Unavailable Unavailable BALLARDVishal MD Unavailable Unavailable BALLARDVishal MD Unavailable Unavailable BALLARDVishal MD Unavailable Unavailable BALLARDVishal MD Unavailable Unavailable BALLARDVishal MD Unavailable Unavailable BALLARDVishal MD Unavailable Unavailable BALLARDVishal MD Unavailable Unavailable BALLARDVishal MD Unavailable Unavailable BALLARDVishal MD Unavailable Unavailable BALLARDVishal MD Unavailable Unavailable BALLARDVishal MD Unavailable Unavailable BALLARDVishal MD Unavailable Unavailable BALLARDVishal MD Unavailable Unavailable BALLARDVishal MD Unavailable Unavailable BALLARDVishal MD Unavailable Unavailable BALLARDVishal MD Unavailable Unavailable BALLARDVishal MD Unavailable Unavailable BALLARDVishal MD Unavailable Unavailable BALLARDVishal MD Unavailable Unavailable BALLARDVishal MD Unavailable Unavailable BALLARDVishal MD Unavailable Unavailable BALLARDVishal MD Unavailable Unavailable BALLARDVishal HIDALGO MD Unavailable Unavailable BALLARDVishal HIDALGO MD Unavailable Unavailable BALLARDVishal HIDALGO MD Unavailable Unavailable BALLARDVishal HIDALGO MD Unavailable Unavailable Vishal BALLARD MD Unavailable Unavailable BALLARDVishal HIDALGO MD Unavailable Unavailable BALLARDVishal HIDALGO MD Unavailable Unavailable BALLARDVishal HIDALGO MD Unavailable Unavailable MYLES CRAFT MD Unavailable Unavailable VALENTINA MERA MD Unavailable Unavailable AUGUSTINE LAZARO MD Unavailable Unavailable AUGUSTINE LAZARO MD Unavailable Unavailable AUGUSTINE LAZARO MD Unavailable Unavailable GEDELA, AUGUSTINE GIL Unavailable Unavailable GEDELA, AUGUSTINE MD Unavailable Unavailable GEDELA, AUGUSTINE MD Unavailable Unavailable GEDELA, AUGUSTINE MD Unavailable Unavailable GEDELA, AUGUSTINE MD Unavailable Unavailable GEDELA, AUGUSTINE MD Unavailable Unavailable GEDELA, AUGUSTINE MD Unavailable Unavailable GEDELA, AUGUSTINE MD Unavailable Unavailable GEDELA, AUGUSTINE MD Unavailable Unavailable GEDELA, AUGUSTINE MD Unavailable Unavailable GEDELA, AUGUSTINE MD Unavailable Unavailable GEDELA, AUGUSTINE MD Unavailable Unavailable GEDELA, AUGUSTINE MD Unavailable Unavailable GEDELA, AUGUSTINE MD Unavailable Unavailable GEDELA, AUGUSTINE MD Unavailable Unavailable GEDELA, AUGUSTINE MD Unavailable Unavailable GEDELA, AUGUSTINE MD Unavailable Unavailable GEDELA, AUGUSTINE MD Unavailable Unavailable GEDELA, AUGUSTINE MD Unavailable Unavailable GEDELA, AUGUSTINE MD Unavailable Unavailable GEDELA, AUGUSTINE MD Unavailable Unavailable JOSH, L KATIE PA Unavailable Unavailable JOSH, L KATIE PA Unavailable Unavailable JOSH, L KATIE PA Unavailable Unavailable JOSH, L KATIE PA Unavailable Unavailable JOSH, L KATIE PA Unavailable Unavailable JOSH, L KATIE PA Unavailable Unavailable JOSH, L KATIE PA Unavailable Unavailable JOSH, L KATIE PA Unavailable Unavailable JOSH, L KATIE PA Unavailable Unavailable JOSH, L KATIE PA Unavailable Unavailable JOSH, L KATIE PA Unavailable Unavailable JOSH, L KATIE PA Unavailable Unavailable JOSH, L KAITE PA Unavailable Unavailable JOSH, L KATIE PA Unavailable Unavailable JOSH, L KATIE PA Unavailable Unavailable JOSH, L KATIE PA Unavailable Unavailable DETRAGLIA, VALENTINA Unavailable Unavailable DETRAGLIA, VALENTINA Unavailable Unavailable DETRAGLIA VALENTINA Unavailable Unavailable DETRAGLIA VALENTINA Unavailable Unavailable DETRAGLIA VALENTINA Unavailable Unavailable DETRAGLIA VALENTINA Unavailable Unavailable DETRAGLIA VALENTINA Unavailable Unavailable DETRAGLIA VALENTINA Unavailable Unavailable DETRAGLIA VALENTINA Unavailable Unavailable DETRAGLIA VALENTINA Unavailable Unavailable DETRAGLIA VALENTINA Unavailable Unavailable DETRAGLIA VALENTINA Unavailable Unavailable DETRAGLIA VALENTINA Unavailable Unavailable DETRAGLIA, VALENTINA Unavailable Unavailable DETRAGLIA VALENTINA Unavailable Unavailable DETRAGLIA VALENTINA Unavailable Unavailable DETRAGLIA, VALENTINA MD Unavailable Unavailable DETRAGLIA, VALENTINA MD Unavailable Unavailable DETRAGLIA, VALENTINA MD Unavailable Unavailable DETRAGLIA, VALENTINA MD Unavailable Unavailable DETRAGLIA, VALENTINA MD Unavailable Unavailable DETRAGLIA, VALENTINA MD Unavailable Unavailable DETRAGLIA, VALENTINA MD Unavailable Unavailable DETRAGLIA, VALENTINA MD Unavailable Unavailable DETRAGLIA, VALENTINA MD Unavailable Unavailable DETRAGLIA, VALENTINA MD Unavailable Unavailable DETRAGLIA, VALENTINA MD Unavailable Unavailable DETRAGLIA, VALENTINA MD Unavailable Unavailable DETRAGLIA, VALENTINA MD Unavailable Unavailable DETRAGLIA, VALENTINA MD Unavailable Unavailable DETRAGLIA, VALENTINA MD Unavailable Unavailable DETRAGLIA, VALENTINA MD Unavailable Unavailable DETRAGLIA, VALENTINA MD Unavailable Unavailable DETRAGLIA, VALENTINA MD Unavailable Unavailable DETRAGLIA, VALENTINA MD Unavailable Unavailable DETRAGLIA, VALENTINA MD Unavailable Unavailable DETRAGLIA, VALENTINA MD Unavailable Unavailable DETRAGLIA, VALENTINA MD Unavailable Unavailable DETRAGLIA, VALENTINA MD Unavailable Unavailable DETRAGLIA, VALENTINA MD Unavailable Unavailable DETRAGLIA, VALENTINA MD Unavailable Unavailable DETRAGLIA, VALENTINA MD Unavailable Unavailable DETRAGLIA, VALENTINA MD Unavailable Unavailable DETRAGLIA, VALENTINA MD Unavailable Unavailable Zamzam, [place] MD Unavailable Unavailable Zamzam, [place] MD Unavailable Unavailable Zamzam, [place] MD Unavailable Unavailable Zamzam, [place] MD Unavailable Unavailable Zamzam, [place] MD Unavailable Unavailable Zamzam, [place] MD Unavailable Unavailable Zamzam, Sofy MD Unavailable Unavailable Zamzam, [place] MD Unavailable Unavailable Zamzam, Sofy MD Unavailable Unavailable Zamzam, [place] MD Unavailable Unavailable Zamzam, Sofy MD Unavailable Unavailable Zamzam, [place] MD Unavailable Unavailable Zamzam, [place] MD Unavailable Unavailable Zamzam, [place] MD Unavailable Unavailable Zamzam, [place] MD Unavailable Unavailable Zamzam, Sofy MD Unavailable Unavailable Zamzam, [place] MD Unavailable Unavailable Zamzam, [place] MD Unavailable Unavailable Zamzam, [place] MD Unavailable Unavailable Zamzam, [place] MD Unavailable Unavailable Zamzam, [place] MD Unavailable Unavailable Zamzam, Sofy MD Unavailable Unavailable Zamzam, [place] MD Unavailable Unavailable Zamzam, [place] MD Unavailable Unavailable Zamzam, [place] MD Unavailable Unavailable Zamzam, Sofy MD Unavailable Unavailable Zamzam, [place] MD Unavailable Unavailable Zamzam, [place] MD Unavailable Unavailable Zamzam, [place] MD Unavailable Unavailable Zamzam, [place] MD Unavailable Unavailable Zamzam, Sofy MD Unavailable Unavailable Zamzam, Sofy MD Unavailable Unavailable Zamzam, Sofy MD Unavailable Unavailable Zamzam, Sofy MD Unavailable Unavailable Zamzam, Sofy MD Unavailable Unavailable Zamzam, Sofy MD Unavailable Unavailable Zamzam, [place] MD Unavailable Unavailable Zamzam, [place] MD Unavailable Unavailable Zamzam, [place] MD Unavailable Unavailable Zamzam, Sofy MD Unavailable Unavailable Zamzam, Sofy MD Unavailable Unavailable Zamzam, [place] MD Unavailable Unavailable Zamzam, [place] MD Unavailable Unavailable Zamzam, Sofy MD Unavailable Unavailable Zamzam, Sofy MD Unavailable Unavailable Zamzam, Sofy MD Unavailable Unavailable FARZANEH, HAMERTON MD Unavailable Unavailable FARZANEH, HAMERTON MD Unavailable Unavailable FARZANEH, [place] MD Unavailable Unavailable FARZANEH, [place] MD Unavailable Unavailable FARZANEH, [place]ERT[place] MD Unavailable Unavailable FARZANEH, [place] MD Unavailable Unavailable FARZANEH, [place]AMERT[place] MD Unavailable Unavailable Re-disclosure Warning The records that you are about to access may contain information from federally-assisted alcohol or drug abuse programs. If such information is present, then the following federally mandated warning applies: This information has been disclosed to you from records protected by federal confidentiality rules (42 CFR part 2). The federal rules prohibit you from making any further disclosure of this information unless further disclosure is expressly permitted by the written consent of the person to whom it pertains or as otherwise permitted by 42 CFR part 2. A general authorization for the release of medical or other information is NOT sufficient for this purpose. The Federal rules restrict any use of the information to criminally investigate or prosecute any alcohol or drug abuse patient.The records that you are about to access may contain highly sensitive health information, the redisclosure of which is protected by Article 27-F of the [facility] Public Health law. If you continue you may have access to information: Regarding HIV / AIDS; Provided by facilities licensed or operated by the [facility] Office of Mental Health; or Provided by the [facility] Office for People With Developmental Disabilities. If such information is present, then the following [facility] mandated warning applies: This information has been disclosed to you from confidential records which are protected by state law. State law prohibits you from making any further disclosure of this information without the specific written consent of the person to whom it pertains, or as otherwise permitted by law. Any unauthorized further disclosure in violation of state law may result in a fine or [place] [facility] sentence or both. A general authorization for the release of medical or other information is NOT sufficient authorization for further disc losure. Allergies and Adverse Reactions Type Description Substance Reaction Status Data Source(s ) Propensity to adverse reactions NO KNOWN ALLERGIES NO KNOWN ALLERGIES [facility] Propensity to adverse reactions NO ALLERGIES ON FILE NO ALLERGIES ON FILE [facility] Family History Family Member Name Family Member Gender Family Member Status Date o f Status Description Data Source(s) Unknown Unknown Problem [facility] ([facility]) Unknown Male Problem [facility] ([facility], ) () Encounters Encounter Providers Location Date Indications Data Source(s ) Outpatient Attender: KATIE MORENO [place] Main Office 03/29/2021 0 9:30:00 AM EDT [facility] ([facility]) Outpatient [address] [place] [address] 03/28/2021 12:00:00 AM EDT eCW1 ([facility]) OUTPATIENT Attender: Sultana Zamzam GIL [id number] 03/22/2021 02:55:48 PM EDT [facility] Outpatient [address] [place] [address] 03/21/2021 12:00:00 AM EDT eCW1 ([facility]) INPATIENT Attender: MYLES CRAFT MD [id number] 03/18/2021 03:44:26 PM EDT [facility] INPATIENT Attender: JUVENAL DEWEY MD [id number] 03/18/2021 10:43:19 AM EDT [facility] INPATIENT Attender: SMOOTH MOY MD Attender: AUGUSTINE LAZARO MDAttender: Chetan Greene MDAttender: CHETNA GREENE MDAdmitter: AUGUSTINE LAZARO MDConsultant: Sultana Wyman MDConsultant: VALENTINA DETRAGLIA MDConsultant: VALENTINA KATELINAGLIA MDConsultant: SHIRA BALLARD MDConsultant: Azael Mercedesmanoj [id number] 03/16/2021 07:50:00 PM EDT - 03/20/2021 02:15:00 PM EDT [facility] Patient discharged. Emergency Attender: SUZAN HITCHCOCK PAReferrer: Marcus Estevez MD EMERGENCY ROOM-ER 03/16/2021 09:56:00 AM EDT - 03/16/2021 05:24:00 PM EDT [facility] Patient discharged. Outpatient Attender: KATIE JAMIL Main Office 03/12/2021 0 2:00:00 PM EDT [facility] ([facility]) Office Visit Attender: BREANNE LOGAN MD Main Office 02/22/2021 12:29:0 0 PM EDT [facility] ([facility]) Outpatient Attender: KATIE JAMIL Main Office 02/06/2021 0 1:00:00 PM EDT [facility] ([facility]) Office Visit Attender: BREANNE LOGAN MD Main Office 01/22/2021 04:28:0 0 PM EDT [facility] ([facility]) Outpatient [address] [facility] [id number] 01/18/2021 12:00:00 AM EDT eCW1 ([facility]) Outpatient [address] [facility] [address] [place] [id number] 01/08/2021 12:00:00 AM EDT eCW1 ([facility]) Outpatient Attender: Marcus RICHEYeferrer: Marcus hernandez MD EMERGENCY ROOM-LABOTHPROV 12/31/2020 11:22:00 AM EDT - 12/31/2020 11:22:00 AM T [facility] Office Visit Attender: BREANNE LOGAN MD Main Office 12/20/2020 04:36:0 0 PM EDT [facility] ([facility]) Office Visit Attender: BREANNE LOGAN MD Main Office 11/21/2020 12:35:0 0 PM EDT [facility] ([facility]) Office Visit Attender: BREANNE LOGAN MD Main Office 11/01/2020 07:49:0 0 AM EDT [facility] ([facility]) Office Visit Attender: BREANNE LOGAN MD Main Office 09/26/2020 02:54:0 0 PM EDT [facility] ([facility]) Outpatient Attender: Kai RICHEYeferrer: Nikolay Estevez MD EMERGENCY ROOM-LABOTHPROV 09/07/2020 10:07:00 AM EDT - 09/07/2020 10:07:00 AM [facility] Office Visit Attender: BREANNE LOGAN MD Main Office 08/24/2020 10:25:0 0 AM EST [facility] ([facility]) Outpatient [address] [place] [address] 08/22/2020 12:00:00 AM EST eCW1 ([facility]) Outpatient [address] [place] [address] 08/22/2020 12:00:00 AM EST eCW1 ([facility]) Outpatient [address] [place] [address] 08/16/2020 12:00:00 AM EST eCW1 ([facility]) Outpatient Attender: KATIE JAMIL Main Office 08/09/2020 1 2:00:00 PM EST [facility] ([facility]) Office Visit Attender: BREANNE LOGAN MD Main Office 07/18/2020 08:08:0 0 AM EST [facility] ([facility]) Outpatient [address] [place] [address] 07/10/2020 12:00:00 AM EST eCW1 ([facility]) Outpatient [address] [place] [address] 07/06/2020 12:00:00 AM EST eCW1 ([facility]) Outpatient Attender: Marcus RICHEYeferrer: Marcus hernandez MD EMERGENCY ROOM-LABOTHPROV 06/28/2020 01:53:00 PM EST - 06/28/2020 01:53:00 PM [facility] Office Visit Attender: BREANNE LOGAN MD Main Office 05/25/2020 09:33:0 0 AM EST [facility] ([facility]) Outpatient [address] [place] [address] 05/14/2020 12:00:00 AM EST eCW1 ([facility]) Office Visit Attender: BREANNE LOGAN MD Main Office 04/18/2020 11:24:0 0 AM EDT [facility] ([facility]) Office Visit Attender: BREANNE LOGAN MD Main Office 03/16/2020 03:07:0 0 PM EDT [facility] ([facility]) Outpatient [address] [place] [address] 03/07/2020 12:00:00 AM EDT eCW1 [facility] Outpatient Attender: Carmel PATELNPReferre r: Marcus Estevez MD EMERGENCY ROOM-LABOTHPROV 01/05/2020 10:43:00 AM EDT - 01/05/2020 10:43:00 AM [facility] Outpatient Attender: Marcus Estevez MD 06/30/19 19 12:49:00 PM EST - 06/30/2018 12:49:00 PM [facility] Immunizations Vaccine Date Status Description Data Source(s) COVID Vaccine 2nd Dose (Pfizer) 08/12/2020 11:01:00 AM EST complete d eCW1 ([facility]) COVID Vaccine 2nd Dose (Pfizer) 08/12/2020 11:01:00 AM EST complete d eCW1 ([facility]) COVID Vaccine 2nd Dose (Pfizer) 08/12/2020 11:01:00 AM EST complete d eCW1 ([facility]) COVID-19 VACCINE Pfizer 08/12/2020 12:00:00 AM EST completed [employer] Vaccine Series Complete: YESThis Data wa s Submitted to [facility] Via [employer]. COVID Vaccine 1st Dose (Pfizer) 07/22/2020 11:01:00 AM EST complete d eCW1 ([facility]) COVID Vaccine 1st Dose (Pfizer) 07/22/2020 11:01:00 AM EST complete d eCW1 ([facility]) COVID Vaccine 1st Dose (Pfizer) 07/22/2020 11:01:00 AM EST complete d eCW1 ([facility]) COVID-19 VACCINE Pfizer 07/22/2020 12:00:00 AM EST completed [facility] Vaccine Series Complete: NOThis Data was Submitted to [facility] Via [employer]. PNEUMOCOCCAL 13-VALENT CONJUGATE VACCINE (DIPHTHERIA C RM)/PF 05/26/2020 12:00:00 AM EST completed [facility] INFLUENZA VACCINE QUADRIVALENT 2019- (65 YR UP)/MF59 C.1/PF 03/21/2020 12:00:00 AM EDT completed [facility] New in 2011. IIV4 03/20/2020 08:12:00 AM EDT completed eCW1 ([facility]) New in 2011. IIV4 03/20/2020 08:12:00 AM EDT completed eCW1 ([facility]) New in 2011. IIV4 03/20/2020 08:12:00 AM EDT completed eCW1 ([facility]) New in 2011. IIV4 03/20/2020 08:12:00 AM EDT completed eCW1 ([facility]) New in 2011. IIV4 03/20/2020 08:12:00 AM EDT completed eCW1 ([facility]) New in 2011. IIV4 03/20/2020 08:12:00 AM EDT completed eCW1 ([facility]) New in 2011. IIV4 03/20/2020 08:12:00 AM EDT completed eCW1 ([facility]) New in 2011. IIV4 03/20/2020 08:12:00 AM EDT completed eCW1 ([facility]) New in 2011. IIV4 03/20/2020 08:12:00 AM EDT completed eCW1 ([facility]) Medications Medication Brand Name Start Date Product Form Dose Route Admi nistrative Instructions Pharmacy Instructions Status Indications Reaction Description Data Source(s) 10 mg 04/04/2021 12:00:00 AM EDT tablet 60 TAKE ONE TABLET BY MOUTH EVERY 6 HOURS TAKE ONE TABLET BY MOUTH EVERY 6 HOURS SOLD: 04/05/2021 [facility] 100 mg 04/04/2021 12:00:00 AM EDT capsule 270 TAKE ONE CAPSULE BY MOUTH THREE TIMES A DAY TAKE ONE CAPSULE BY MOUTH THREE TIMES A DAY SOLD: 04/05/2021 [facility] 8 mg 04/02/2021 12:00:00 AM EDT tablet 30 TAKE ONE TABLET BY MOUTH THREE TIMES A DAY FOR NAUSEA/ VOMITING TAKE ONE TABLET BY MOUTH THREE TIMES A D AY FOR NAUSEA/ VOMITING SOLD: 04/05/2021 [facility] 60 mcg (15 mcg x 4)/0.5 mL 03/11/2021 12:00:00 AM EDT suspen jordin 0 INJECT DIRECTED PER STANDING ORDER INJECT DIRECTED PER STANDING ORDER SOLD: 03/11/2021 [facility] 2.5 mg 02/08/2021 12:00:00 AM EDT tablet 90 TAKE ONE TABLET BY MOUTH EVERY MORNING TAKE ONE TABLET BY MOUTH EVERY MORNING SOLD: 02/09/2021 [facility] Amlodipine 2.5 MG Oral Tablet Amlodipine Besylate 02/06/2021 12:00: 00 AM EDT ORAL active [facility] ([facility]) 32.4 mg 02/03/2021 12:00:00 AM EDT tablet 120 TAKE TWO TABLETS BY MOUTH TWICE A DAY MAXIMUM DAILY DOSE = 4 TAKE TWO TABLETS BY MOUTH TWICE A DAY MA PAULAMUCarlos DAILY DOSE = 4 SOLD: 02/03/2021 [facility] 32.4 mg 02/03/2021 12:00:00 AM EDT tablet 120 TAKE TWO TABLETS BY MOUTH TWICE A DAY MAXIMUM DAILY DOSE = 4 TAKE TWO TABLETS BY MOUTH TWICE A DAY MA XIMUCarlos DAILY DOSE = 4 SOLD: 04/08/2021 [facility] 32.4 mg 02/03/2021 12:00:00 AM EDT tablet 120 TAKE TWO TABLETS BY MOUTH TWICE A DAY MAXIMUM DAILY DOSE = 4 TAKE TWO TABLETS BY MOUTH TWICE A DAY MA XIMUM DAILY DOSE = 4 SOLD: 03/04/2021 [facility] 40 mg 12/26/2020 12:00:00 AM EDT tablet 135 TAKE ONE TABLET BY MOUTH EVERY MORNING AND TAKE 0.5 TABLET 8 HOURS LATER TAKE ONE TABLET BY MOUTH EVERY MORNING AND TAKE 0.5 TABLET 8 HOURS LATER SOLD: 03/11/2021 [facility] 40 mg 12/26/2020 12:00:00 AM EDT tablet 120 TAKE ONE TABLET BY MOUTH EVERY MORNING AND TAKE 0.5 TABLET 8 HOURS LATER TAKE ONE TABLET BY MOUTH EVERY MORNING AND TAKE 0.5 TABLET 8 HOURS LATER SOLD: 12/26/2020 [facility] 20 mEq 11/09/2020 12:00:00 AM EDT tablet,ER particles/cry stals 90 TAKE ONE TABLET BY MOUTH EVERY DAY TAKE ONE TABLET BY MOUTH EVERY DAY SOLD: 11/10/2020 [facility] 20 mEq 11/09/2020 12:00:00 AM EDT tablet,ER particles/cry stals 90 TAKE ONE TABLET BY MOUTH EVERY DAY TAKE ONE TABLET BY MOUTH EVERY DAY SOLD: 02/03/2021 [facility] 32.4 mg 09/05/2020 12:00:00 AM EDT tablet 120 TAKE 2 TABLETS BY MOUTH TWO TIMES A DAY MAXIMUM DAILY DOSE = 4 TABLETS TAKE 2 TABLETS BY MOUTH TWO TIMES A DAY MAXIMUM DAILY DOSE = 4 TABLETS SOLD: 09/05/2020 [facility] 32.4 mg 09/05/2020 12:00:00 AM EDT tablet 120 TAKE 2 TABLETS BY MOUTH TWO TIMES A DAY MAXIMUM DAILY DOSE = 4 TABLETS TAKE 2 TABLETS BY MOUTH TWO TIMES A DAY MAXIMUM DAILY DOSE = 4 TABLETS SOLD: 01/05/2021 [facility] 32.4 mg 09/05/2020 12:00:00 AM EDT tablet 120 TAKE 2 TABLETS BY MOUTH TWO TIMES A DAY MAXIMUM DAILY DOSE = 4 TABLETS TAKE 2 TABLETS BY MOUTH TWO TIMES A DAY MAXIMUM DAILY DOSE = 4 TABLETS SOLD: 11/06/2020 [facility] 32.4 mg 09/05/2020 12:00:00 AM EDT tablet 120 TAKE 2 TABLETS BY MOUTH TWO TIMES A DAY MAXIMUM DAILY DOSE = 4 TABLETS TAKE 2 TABLETS BY MOUTH TWO TIMES A DAY MAXIMUM DAILY DOSE = 4 TABLETS SOLD: 12/05/2020 [facility] 32.4 mg 09/05/2020 12:00:00 AM EDT tablet 120 TAKE 2 TABLETS BY MOUTH TWO TIMES A DAY MAXIMUM DAILY DOSE = 4 TABLETS TAKE 2 TABLETS BY MOUTH TWO TIMES A DAY MAXIMUM DAILY DOSE = 4 TABLETS SOLD: 10/08/2020 [facility] 50 mg 08/17/2020 12:00:00 AM EST tablet 180 TAKE 1 TABLET BY MOUTH TWO TIMES A DAY TAKE 1 TABLET BY MOUTH TWO TIMES A DAY SOLD: 02/03/2021 [facility] Digoxin 0.25 MG Oral Tablet 250 mcg (0.25 mg) DIGOXIN 08/17/2020 12:00:00 AM EST tablet 90 TAKE ONE TABLET BY MOUTH DORIS DAY TAKE ONE TABLET BY MOUTH EVERY DAY SOLD: 08/25/2020 [facility] 50 mg 08/17/2020 12:00:00 AM EST tablet 180 TAKE 1 TABLET BY MOUTH TWO TIMES A DAY TAKE 1 TABLET BY MOUTH TWO TIMES A DAY SOLD: 08/20/2020 [facility] 25 mg 08/17/2020 12:00:00 AM EST tablet 43 TAKE ONE-HALF TABLET BY MOUTH EVERY DAY TAKE ONE-HALF TABLET BY MOUTH EVERY DAY SOLD: 11/10/2020 [facility] 25 mg 08/17/2020 12:00:00 AM EST tablet 45 TAKE ONE-HALF TABLET BY MOUTH EVERY DAY TAKE ONE-HALF TABLET BY MOUTH EVERY DAY SOLD: 02/03/2021 [facility] Digoxin 0.25 MG Oral Tablet 250 mcg (0.25 mg) DIGOXIN 08/17/2020 12:00:00 AM EST tablet 90 TAKE ONE TABLET BY MOUTH TAKE ONE TABLET BY MOUTH EVERY DAY SOLD: 01/27/2021 [facility] Digoxin 0.25 MG Oral Tablet 250 mcg (0.25 mg) DIGOXIN 08/17/2020 12:00:00 AM EST tablet 80 TAKE ONE TABLET BY MOUTH TAKE ONE TABLET BY MOUTH EVERY DAY SOLD: 11/10/2020 [facility] 50 mg 08/17/2020 12:00:00 AM EST tablet 170 TAKE 1 TABLET BY MOUTH TWO TIMES A DAY TAKE 1 TABLET BY MOUTH TWO TIMES A DAY SOLD: 11/10/2020 [facility] 25 mg 08/17/2020 12:00:00 AM EST tablet 45 TAKE ONE-HALF TABLET BY MOUTH EVERY DAY TAKE ONE-HALF TABLET BY MOUTH EVERY DAY SOLD: 08/20/2020 [facility] 40 mg 08/16/2020 12:00:00 AM EST tablet 120 TAKE ONE TABLET BY MOUTH IN THE MORNING THEN TAKE ONE-HALF TABLET BY MOUTH 8 HOURS LATER TAKE ONE TABLET BY MOUTH IN THE MORNING THEN TAKE ONE-HALF TABLET BY MOUTH 8 HOURS LATER SOLD: 08/25/2020 [facility] 100 mg 05/27/2020 12:00:00 AM EST capsule 270 TAKE ONE CAPSULE BY MOUTH THREE TIMES A DAY TAKE ONE CAPSULE BY MOUTH THREE TIMES A DAY SOLD: 05/27/2020 [facility] 5 mg 05/27/2020 12:00:00 AM EST tablet 180 TAKE 1 TO 2 TABLETS BY MOUTH ONCE DAILY OR DIRECTED TAKE 1 TO 2 TABLETS BY MOUTH ONCE DAILY OR DIRECTED SOLD: 01/30/2021 [facility] 100 mg 05/27/2020 12:00:00 AM EST capsule 270 TAKE ONE CAPSULE BY MOUTH THREE TIMES A DAY TAKE ONE CAPSULE BY MOUTH THREE TIMES A DAY SOLD: 08/25/2020 [facility] 5 mg 05/27/2020 12:00:00 AM EST tablet 180 TAKE 1 TO 2 TABLETS BY MOUTH ONCE DAILY OR DIRECTED TAKE 1 TO 2 TABLETS BY MOUTH ONCE DAILY OR DIRECTED SOLD: 05/27/2020 [facility] 100 mg 05/27/2020 12:00:00 AM EST capsule 240 TAKE ONE CAPSULE BY MOUTH THREE TIMES A DAY TAKE ONE CAPSULE BY MOUTH THREE TIMES A DAY SOLD: 11/10/2020 [facility] 100 mg 05/27/2020 12:00:00 AM EST capsule 270 TAKE ONE CAPSULE BY MOUTH THREE TIMES A DAY TAKE ONE CAPSULE BY MOUTH THREE TIMES A DAY SOLD: 01/27/2021 [facility] 32.4 mg 04/03/2020 12:00:00 AM EDT tablet 120 TAKE TWO TABLETS BY MOUTH TWICE A DAY MAXIMUM DAILY DOSE = 4 TAKE TWO TABLETS BY MOUTH TWICE A DAY MA XIMUM DAILY DOSE = 4 SOLD: 06/04/2020 [facility] 32.4 mg 04/03/2020 12:00:00 AM EDT tablet 120 TAKE TWO TABLETS BY MOUTH TWICE A DAY MAXIMUM DAILY DOSE = 4 TAKE TWO TABLETS BY MOUTH TWICE A DAY MA XIMUM DAILY DOSE = 4 SOLD: 04/03/2020 [facility] 32.4 mg 04/03/2020 12:00:00 AM EDT tablet 120 TAKE TWO TABLETS BY MOUTH TWICE A DAY MAXIMUM DAILY DOSE = 4 TAKE TWO TABLETS BY MOUTH TWICE A DAY MA XIMUM DAILY DOSE = 4 SOLD: 07/03/2020 [facility] 32.4 mg 04/03/2020 12:00:00 AM EDT tablet 120 TAKE TWO TABLETS BY MOUTH TWICE A DAY MAXIMUM DAILY DOSE = 4 TAKE TWO TABLETS BY MOUTH TWICE A DAY MA XIMUM DAILY DOSE = 4 SOLD: 05/04/2020 [facility] 32.4 mg 04/03/2020 12:00:00 AM EDT tablet 120 TAKE TWO TABLETS BY MOUTH TWICE A DAY MAXIMUM DAILY DOSE = 4 TAKE TWO TABLETS BY MOUTH TWICE A DAY NILES MAYERS DAILY DOSE = 4 SOLD: 08/07/2020 [facility] 20 mEq 12/08/2019 12:00:00 AM EDT tablet,ER particles/cry stals 90 TAKE ONE TABLET BY MOUTH EVERY DAY TAKE ONE TABLET BY MOUTH EVERY DAY SOLD: 08/25/2020 [facility] 20 mEq 12/08/2019 12:00:00 AM EDT tablet,ER particles/cry stals 90 TAKE ONE TABLET BY MOUTH EVERY DAY TAKE ONE TABLET BY MOUTH EVERY DAY SOLD: 05/27/2020 [facility] 20 mEq 12/08/2019 12:00:00 AM EDT tablet,ER particles/cry stals 90 TAKE ONE TABLET BY MOUTH EVERY DAY TAKE ONE TABLET BY MOUTH EVERY DAY SOLD: 03/03/2020 [facility] 32.4 mg 10/06/2019 12:00:00 AM EDT tablet 120 TAKE TWO TABLETS BY MOUTH TWICE A DAY MAXIMUM DAILY DOSE = 4 TAKE TWO TABLETS BY MOUTH TWICE A DAY NILES MAYERS DAILY DOSE = 4 SOLD: 03/05/2020 [facility] 25 mg 09/14/2019 12:00:00 AM EDT tablet 45 TAKE ONE-HALF TABLET BY MOUTH EVERY DAY TAKE ONE-HALF TABLET BY MOUTH EVERY DAY SOLD: 03/03/2020 [facility] 25 mg 09/14/2019 12:00:00 AM EDT tablet 45 TAKE ONE-HALF TABLET BY MOUTH EVERY DAY TAKE ONE-HALF TABLET BY MOUTH EVERY DAY SOLD: 05/27/2020 [facility] 40 mg 09/14/2019 12:00:00 AM EDT tablet 135 TAKE 1 TABLET BY MOUTH ONCE IN THE MORNING AND TAKE 1/2 TABLET 8 HOURS LATER TAKE 1 TABLET BY MOUTH ONCE IN THE MORNING AND TAKE 1/2 TABLET 8 HOURS LATER SOLD: 05/27/2020 [facility] 250 mcg (0.25 mg) 09/14/2019 12:00:00 AM EDT tablet 90 TAKE ONE TABLET BY MOUTH EVERY DAY TAKE ONE TABLET BY MOUTH EVERY DAY SOLD: 03/03/2020 [facility] 250 mcg (0.25 mg) 09/14/2019 12:00:00 AM EDT tablet 90 TAKE ONE TABLET BY MOUTH EVERY DAY TAKE ONE TABLET BY MOUTH EVERY DAY SOLD: 05/27/2020 [facility] 40 mg 09/14/2019 12:00:00 AM EDT tablet 135 TAKE 1 TABLET BY MOUTH ONCE IN THE MORNING AND TAKE 1/2 TABLET 8 HOURS LATER TAKE 1 TABLET BY MOUTH ONCE IN THE MORNING AND TAKE 1/2 TABLET 8 HOURS LATER SOLD: 03/03/2020 [facility] 50 mg 09/14/2019 12:00:00 AM EDT tablet 180 TAKE 1 TABLET BY MOUTH TWO TIMES A DAY TAKE 1 TABLET BY MOUTH TWO TIMES A DAY SOLD: 05/27/2020 [facility] 50 mg 09/14/2019 12:00:00 AM EDT tablet 180 TAKE 1 TABLET BY MOUTH TWO TIMES A DAY TAKE 1 TABLET BY MOUTH TWO TIMES A DAY SOLD: 03/03/2020 [facility] 100 mg 06/16/2019 12:00:00 AM EST capsule 270 TAKE ONE CAPSULE BY MOUTH THREE TIMES A DAY TAKE ONE CAPSULE BY MOUTH THREE TIMES A DAY SOLD: 03/03/2020 [facility] Warfarin Sodium 6 MG Oral Tablet warfarin (COUMADIN) 6 mg tablet warfarin (COUMADIN) 6 mg tablet 6 mg oral aborted Take 6 mg by mouth 1 (one) time each day. 5 days a week [facility] Warfarin Sodium 1 MG Oral Tablet warfarin (COUMADIN) 1 mg tablet warfarin (COUMADIN) 1 mg tablet 7 mg oral aborted Take 7 mg by mouth 1 (one) time each day. 2 days a week [facility] Spironolactone 25 MG Oral Tablet spironolactone (ALDAC TONE) 25 mg tablet spironolactone (ALDACTONE) 25 mg tablet 12.5 mg oral aborted Take 12.5 mg by mouth 1 (one) time each day. [facility] Furosemide 40 MG Oral Tablet furosemide (LASIX) 40 mg tablet furosemide (LASIX) 40 mg tablet 40 mg oral aborted Ambrosio e 40 mg by mouth 1 (one) time each day. [facility] Furosemide 20 MG Oral Tablet furosemide (LASIX) 20 mg tablet furosemide (LASIX) 20 mg tablet 20 mg oral aborted Ambrosio e 20 mg by mouth 1 (one) time each day before lunch. AFTERNOON [facility] Aspirin 81 MG Delayed Release Oral Tablet aspirin 81 m g EC tablet aspirin 81 mg EC tablet 81 mg oral aborted Take 8 1 mg by mouth 1 (one) time each day. [facility] Insurance Providers Payer name Policy type / Coverage type Policy ID Covered constitution party ID Covered constitution party's relationship to [place] Policy [place] Plan Information U/HC Medicaid Comm Plan Commercial [id number] Self 1 [id number] U/HC Medicaid Comm Plan Commercial [id number] Self [id number] U/HC Medicaid Comm Plan Commercial [id number] Self 1 [id number] U/HC Medicaid Comm Plan Commercial [id number] Self 1 [id number] U/HC Medicaid Comm Plan Commercial [id number] Self [facility] MEDICARE DIVISION [id number] S [id number] [facility] MEDICARE DIVISION [id number] S [id number] [facility] MEDICARE DIVISION [id number] S [id number] MEDICARE [id number] SP [id number] M [facility] MEDICARE DIVISION [id number] S [id number] [place] [id number] S [id number] [place] [id number] S [id number] [place] [id number] S [id number] MEDICARE Med [id number] Self [id number] [place] [id number] S [id number] MEDICARE Medicare [id number] MEDICARE [id number] SP [id number] M MEDICAID [place] [id number] Self [id number] [place]ICAID [place] [id number] [facility] [id number] SP [id number] ANSI-Medicare Part B [id number] ANSI-Medicaid [id number] MEDICAID [id number] S [id number] Medicaid Medigap Part B [id number] 6.0 Self [id number] Medicaid Medigap Part B [id number] 6.0 Self [id number] Medicare (Part B) Medicare Primary [id number] Self [id number] Medicaid Medigap Part B [id number] 6.0 Self [id number] Medicaid Medigap Part B [id number] 6.0 Self [id number] Medicare (Part B) Medicare Primary [id number] Self 1 [id number] Medicaid [place] Medigap Part B [id number] Self [id number] Medicare [place] Medicare Primary [id number] Self [id number] Medicaid Medigap Part B [id number] 6.0 Self [id number] Medicaid Medigap Part B [id number] 6.0 Self [id number] Medicare (Part B) Medicare Primary [id number] Self 1 [id number] Medicaid Medigap Part B 1 1 [id number] 6.0 Self 1 1 Medicare (Part B) Medicare Primary [id number] Self Medicaid Medigap Part B 2 [id number] Self 2 1 Medicare Medicare Primary [id number] Self [employer] MEDICAID MCD HMO [id number] S [id number] SELF PAY 2 UNAVAILABLE 1 [place] BLE [place] 3 [id number] [place] [id number] SP [id number] M [id number] MEDICARE [id number] SP [id number] MEDICAID [id number] S [id number] MEDICAID [id number] S [id number] [place] [id number] SP [id number] MEDICAID [id number] SP [id number] MEDICARE [id number] SP [id number] M [facility]-Medicaid [id number] [facility]-Medicare Part B [id number] [facility] [id number] [facility] [id number] [facility] [id number] [facility]-Medicaid [id number] Medicaid Medigap Part B [id number] Self [id number] Medicaid Medigap Part B [id number] Self [id number] Medicare (Part B) Medicare Primary [id number] Self [id number] [facility] [id number] S [id number] MEDICARE - [place] [id number] S [id number] Problems, Conditions, and Diagnoses Code Display Name Description Problem Type Effective Dates Data Source(s) I10 Essential (primary) hypertension Essential (primary) h ypertension Diagnosis 03/20/2021 02:00:40 PM EDT [facility] K92.2 Gastrointestinal hemorrhage, unspecified Gastrointestinal hemorrhage, unspecified Diagnosis 03/16/2021 07:50:00 PM EDT [facility] Gi Bleed Gi Bleed Diagnosis 03/16/2021 07:50:00 PM ED T [facility] Z95.4 Presence of other heart-valve replacemen t PRESENCE OF OTHER HEART-VALVE REPLACEMENT Diagnosis 03/16/2021 09:56:00 AM [facility] l Z79.899 Other fci (current) drug therapy O THER [facility] (CURRENT) DRUG THERAPY Diagnosis 03/16/2021 09:56:00 AM [facility] l 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 ABSENCE OF OTHER SPECIFIED PARTS OF DIGES Diagnosis 03/16/2021 09:56:0 0 AM [facility] Z79.01 snf (current) use of anticoagulant s [facility] (CURRENT) USE OF ANTICOAGULANTS Diagnosis 03/16/2021 09:56:00 AM [facility] l 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 Diagnosis 03/16/2021 09:56:00 AM [facility] Z20.822 CONTACT WITH AND (SUSPECTED) EXPOSURE TO COVID-19 CONTACT WITH AND (SUSPECTED) EXPOSURE TO COVID-19 Diagnosis 03/16/2021 09:56:00 AM [facility] I10 Essential (primary) hypertension ESSENTIAL (PRIMARY) H YPERTENSION Diagnosis 03/16/2021 09:56:00 AM [facility] K92.2 Gastrointestinal hemorrhage, unspecified GASTROINTESTINAL HEMORRHAGE, UNSPECIFIED Diagnosis 03/16/2021 09:56:00 AM [facility] l K62.5 Hemorrhage of anus and rectum HEMORRHAGE OF ANUS AND R ECTUM Diagnosis 03/16/2021 09:56:00 AM [facility] F32.9 Major depressive disorder, single episod e, unspecified MAJOR DEPRESSIVE DISORDER, SINGLE EPISOD Diagnosis 12/31/2020 11:22:00 AM [facility] pital I50.9 Heart failure, unspecified HEART FAILURE, UNSPECIFIED Diagnosis 12/31/2020 11:22:00 AM [facility] R56.9 Unspecified convulsions UNSPECIFIED CONVULSIONS Diagno sis 12/31/2020 11:22:00 AM [facility] E78.00 PURE HYPERCHOLESTEROLEMIA, UNSPECIFIED P URE HYPERCHOLESTEROLEMIA, UNSPECIFIED Diagnosis 12/31/2020 11:22:00 AM [facility] R60.9 Edema, unspecified EDEMA, UNSPECIFIED Diagnosis 05/2021 11:22:00 AM [facility] I48.91 Unspecified atrial fibrillation UNSPECIFIED ATRI AL FIBRILLATION Diagnosis 12/31/2020 11:22:00 AM [facility] C61 Malignant neoplasm of prostate MALIGNANT NEOPLASM OF P ROSTATE Diagnosis 12/31/2020 11:22:00 AM [facility] C78.7 [id number] Secondary malignant neoplasm of liver and intrahepatic bile duct Problem 03/28/2021 12:00:00 AM EDT eCW1 ([facility]) C18.9 [id number] Malignant neoplasm of colon, unspecified Problem 03/28/2021 12:00:00 AM EDT eCW1 ([facility]) C78.00 [id number] Secondary malignant neoplasm of unspecifi ed lung Problem 03/28/2021 12:00:00 AM EDT eC1 ([facility]) C18.9 [id number] Malignant neoplasm of colon, unspecified part of colon Problem 03/25/2021 12:00:00 AM EDT eCW1 ([facility]) Surgeries/Procedures Procedure Description Date Indications Data Source(s) OFFICE OUTPATIENT VISIT 25 MINUTES 03/29/2021 12:00:00 AM EDT [facility] ([facility]) RBC AND PLATELET MORPHOLGY <td>RBC AND PLATELET MORPHOLGY</td><td>Routine</td><td>03/20/2021 5:17 AM EDT</td><td> Benign essential HTN</td><td> </td> 03/20/2021 05:17:00 AM EDT Benign essential HTN [facility] Benign essential HTN BLOOD COUNT COMPLETE AUTO&AUTO DIFRNTL WBC COUNT <td>H C CBC W/ DIFFERENTIAL</td><td>Routine</td><td>03/20/2021 5:17 AM EDT</td><td> Benign essential HTN</td><td> </td> 03/20/2021 05:17:00 AM EDT Benign essential HTN [facility] Benign essential HTN BASIC METABOLIC PANEL CALCIUM TOTAL <td>BASIC METABOLI C PANEL</td><td>Routine</td><td>03/20/2021 5:17 AM EDT</td><td> Benign essential HTN</td><td> </td> 03/20/2021 05:17:00 AM EDT Benign essential HTN [facility] Benign essential HTN CT ABDOEN & PELVIS W/CONTRAST MATERIAL <td>CT ABDOMEN PELVIS W CONTRAST</td><td>Routine</td><td>03/19/2021 7:41 PM EDT</td><td></td><td> </td> 03/19/2021 07:41:23 PM EDT [facility] COLONOSCOPY <td>COLONOSCOPY</td><td></td ><td>03/19/2021 1:34 PM EDT</td><td></td><td> </td> 03/19/2021 01:34:07 PM EDT [facility] REVISION/REPLMT NEUROSTIMLATOR ELTRD CRANIAL NRV <td>S URGICAL PATHOLOGY</td><td>Routine</td><td>03/19/2021 12:45 PM EDT</td><td> Benign essential HTN</td><td> </td> 03/19/2021 12:45:00 PM EDT Benign essential HTN [facility] Benign essential HTN COLONOSCOPY FLX DX W/WO COLLJ SPECIMENS <td>COLONOSCOPY</td><td></td><td>03/19/2021 12:30 PM EDT</td><td> GI Bleed</td><td></td> 03/19/2021 12:30:00 PM EDT - 03/19/2021 01:26:00 PM ED T [facility] ECG ROUTINE ECG W/LEAST 12 LDS TRCG ONLY W/O I&R <td>E CG 12- LEAD</td><td>STAT</td><td>03/19/2021 9:21 AM EDT</td><td> Benign essential HTN</td><td> </td> 03/19/2021 09:21:57 AM EDT Benign essential HTN [facility] Benign essential HTN DRUG SCREEN QUALITATIVE PHENYTOIN TOTAL <td>PHENYTOIN LEVEL, TOTAL</td><td>Routine</td><td>03/19/2021 4:14 AM EDT</td><td> Benign essential HTN</td><td> </td> 03/19/2021 04:14:00 AM EDT Benign essential HTN [facility] Benign essential HTN DRUG SCREEN QUALITATIVE PHENOBARBITAL <td>PHENOBARBITA L LEVEL</td><td>Routine</td><td>03/19/2021 4:14 AM EDT</td><td> Benign essential HTN</td><td> </td> 03/19/2021 04:14:00 AM EDT Benign essential HTN [facility] Benign essential HTN DRUG SCREEN QUALITATIVE DIGOXIN <td>DIGOXIN LEVEL</td><td>Routine</td><td>03/19/2021 4:14 AM EDT</td><td> Benign essential HTN</td><td> </td> 03/19/2021 04:14:00 AM EDT Benign essential HTN [facility] Benign essential HTN UPPER GI ENDOSCOPY <td>UPPER GI ENDOSCOPY</td>< td></td><td>03/18/2021 11:16 AM EDT</td><td></td><td> </td> 03/18/2021 11:16:00 AM EDT [facility] REVISION/REPLMT NEUROSTIMLATOR ELTRD CRANIAL NRV <td>S URGICAL PATHOLOGY</td><td>Routine</td><td>03/18/2021 11:07 AM EDT</td><td> Benign essential HTN</td><td> </td> 03/18/2021 11:07:00 AM EDT Benign essential HTN [facility] Benign essential HTN UPPER GI NDSC DX W/WO COLLECTION SPECIMEN <td>EGD (ESOPHAGOGASTRODUODENOSCOPY)</td><td></td><td>03/18/2021 10:57 AM EDT</td><td> gi bleed</td><td></td> 03/18/2021 10:57:00 AM EDT - 03/18/2021 11:12:00 AM ED T [facility] PROTHROMBIN TIME <td>PROTHROMBIN TIME NO THER APY OR UNKNOWN</td><td>Routine</td><td>03/18/2021 5:00 AM EDT</td><td></td><td> </td> 03/18/2021 05:00:00 AM EDT [facility] MANUAL DIFFERENTIAL <td>MANUAL DIFFERENTIAL</td> <td>Routine</td><td>03/18/2021 5:00 AM EDT</td><td></td><td> </td> 03/18/2021 05:00:00 AM EDT [facility] BLOOD COUNT COMPLETE AUTO&AUTO DIFRNTL WBC COUNT <td>H C CBC W/ DIFFERENTIAL</td><td>Routine</td><td>03/18/2021 5:00 AM EDT</td><td></td><td> </td> 03/18/2021 05:00:00 AM EDT [facility] BASIC METABOLIC PANEL CALCIUM TOTAL <td>BASIC METABOLI C PANEL</td><td>Routine</td><td>03/18/2021 5:00 AM EDT</td><td></td><td> </td> 03/18/2021 05:00:00 AM T [facility] PROTHROMBIN TIME <td>PT ON THERAPY</td><td>Ti med</td><td>03/17/2021 11:43 AM EDT</td><td></td><td> </td> 03/17/2021 11:43:00 AM EDT [facility] BLOOD COUNT HEMOGLOBIN <td>HEMOGLOBIN</td><td>Timed </td><td>03/17/2021 11:43 AM EDT</td><td></td><td> </td> 03/17/2021 11:43:00 AM EDT [facility] BLOOD COUNT HEMATOCRIT <td>HEMATOCRIT</td><td>Timed </td><td>03/17/2021 11:43 AM EDT</td><td></td><td> </td> 03/17/2021 11:43:00 AM EDT [facility] PATHOLOGIST REVIEW: HEMATOLOGY <td>PATHOLOGIST REVIEW : HEMATOLOGY</td><td>Routine</td><td>03/17/2021 4:40 AM EDT</td><td></td><td> </td> 03/17/2021 04:40:00 AM EDT [facility] PROTHROMBIN TIME <td>PROTHROMBIN TIME NO THER APY OR UNKNOWN</td><td>Routine</td><td>03/17/2021 4:40 AM EDT</td><td></td><td> </td> 03/17/2021 04:40:00 AM EDT [facility] MANUAL DIFFERENTIAL <td>MANUAL DIFFERENTIAL</td> <td>Routine</td><td>03/17/2021 4:40 AM EDT</td><td></td><td> </td> 03/17/2021 04:40:00 AM EDT [facility] BLOOD COUNT COMPLETE AUTO&AUTO DIFRNTL WBC COUNT <td>H C CBC W/ DIFFERENTIAL</td><td>Routine</td><td>03/17/2021 4:40 AM EDT</td><td></td><td> </td> 03/17/2021 04:40:00 AM EDT [facility] BLOOD COUNT HEMOGLOBIN <td>HEMOGLOBIN</td><td>Timed </td><td>03/17/2021 4:40 AM EDT</td><td></td><td> </td> 03/17/2021 04:40:00 AM EDT [facility] BLOOD COUNT HEMATOCRIT <td>HEMATOCRIT</td><td>Timed </td><td>03/17/2021 4:40 AM EDT</td><td></td><td> </td> 03/17/2021 04:40:00 AM EDT [facility] COMPREHENSIVE METABOLIC PANEL <td>COMPREHENSIVE METABO LIC PANEL</td><td>Routine</td><td>03/17/2021 4:40 AM EDT</td><td></td><td> </td> 03/17/2021 04:40:00 AM EDT [facility] BLOOD COUNT HEMOGLOBIN <td>HEMOGLOBIN</td><td>Timed </td><td>03/16/2021 11:38 PM EDT</td><td></td><td> </td> 03/16/2021 11:38:00 PM EDT [facility] BLOOD COUNT HEMATOCRIT <td>HEMATOCRIT</td><td>Timed </td><td>03/16/2021 11:38 PM EDT</td><td></td><td> </td> 03/16/2021 11:38:00 PM EDT [facility] Anticoagulant MGMT For Patient Taking Warfarin, Inc Review & Intr 03/13/2021 12:00:00 AM EDT [facility] ([facility]) OFFICE OUTPATIENT VISIT 15 MINUTES 03/12/2021 12:00:00 AM EDT [facility] ([facility]) Anticoagulant MGMT For Patient Taking Warfarin, Inc Review & Intr 03/04/2021 12:00:00 AM EDT [facility] ([facility] [employer] [facility]) Anticoagulant MGMT For Patient Taking Warfarin, Inc Review & Intr 02/27/2021 12:00:00 AM EDT [facility] ([facility] [employer] [facility]) Chronic Care Management Services Ea Addl 20 Min 2020 12:00:00 AM EDT [facility] ([facility]) Chronic Care MGMT 20 Mins Clinical Staff Time Per Calendar M ont 02/22/2021 12:00:00 AM EDT [facility] ([facility] [employer] [facility]) Anticoagulant MGMT For Patient Taking Warfarin, Inc Review & Intr 02/21/2021 12:00:00 AM EDT [facility] ([facility] [employer] [facility]) Anticoagulant MGMT For Patient Taking Warfarin, Inc Review & Intr 02/12/2021 12:00:00 AM EDT [facility] ([facility] [employer] [facility]) ECG ROUTINE ECG W/LEAST 12 LDS W/I&R 02/06/2021 12:00: 00 AM EDT [facility] ([facility]) OFFICE OUTPATIENT VISIT 25 MINUTES 02/06/2021 12:00:00 AM EDT [facility] ([facility]) Anticoagulant MGMT For Patient Taking Warfarin, Inc Review & Intr 02/05/2021 12:00:00 AM EDT [facility] ([facility] [employer] [facility]) Anticoagulant MGMT For Patient Taking Warfarin, Inc Review & Intr 01/28/2021 12:00:00 AM EDT [facility] ([facility] [employer] [facility]) Chronic Care MGMT 20 Mins Clinical Staff Time Per Calendar M cox [place] 01/22/2021 12:00:00 AM EDT [facility] ([facility] [employer] [facility]) Anticoagulant MGMT For Patient Taking Warfarin, Inc Review & Intr 01/21/2021 12:00:00 AM EDT [facility] ([facility] [employer] [facility]) Anticoagulant MGMT For Patient Taking Warfarin, Inc Review & Intr 01/15/2021 12:00:00 AM EDT [facility] ([facility] [employer] [facility]) Anticoagulant MGMT For Patient Taking Warfarin, Inc Review & Intr 01/07/2021 12:00:00 AM EDT [facility] ([facility] [employer] [facility]) Anticoagulant MGMT For Patient Taking Warfarin, Inc Review & Intr 12/31/2020 12:00:00 AM EDT [facility] ([facility] [employer] [facility]) Anticoagulant MGMT For Patient Taking Warfarin, Inc Review & Intr 12/28/2020 12:00:00 AM EDT [facility] ([facility] [employer] [facility]) ECHO TTHRC R-T 2D W/WOM-MODE COMPL SPEC&COLR DOP 12/25 12:00:00 AM EDT [facility] ([facility]) Chronic Care Management Services Ea Addl 20 Min 2020 12:00:00 AM EDT [facility] ([facility]) Chronic Care MGMT 20 Mins Clinical Staff Time Per Calendar M [place] 12/20/2020 12:00:00 AM EDT [facility] ([facility] [employer] [facility]) Anticoagulant MGMT For Patient Taking Warfarin, Inc Review & Intr 12/11/2020 12:00:00 AM EDT [facility] ([facility] [employer] [facility]) Anticoagulant MGMT For Patient Taking Warfarin, Inc Review & Intr 12/04/2020 12:00:00 AM EDT [facility] ([facility] [employer] [facility]) Chronic Care Management Services Ea Addl 20 Min 2020 12:00:00 AM EDT [facility] ([facility]) Chronic Care MGMT 20 Mins Clinical Staff Time Per Calendar M [place] 11/21/2020 12:00:00 AM EDT [facility] ([facility] [employer] [facility]) Anticoagulant MGMT For Patient Taking Warfarin, Inc Review & Intr 11/20/2020 12:00:00 AM EDT [facility] ([facility] [employer] [facility]) Complex Chronic Care Management SVC 1St 60 Min 021 12:00:00 AM EDT [facility] ([facility]) Complex Chronic Care MGMT Service Ea Addl 30 Min 11/01 12:00:00 AM EDT [facility] ([facility]) Anticoagulant MGMT For Patient Taking Warfarin, Inc Review & Intr 10/25/2020 12:00:00 AM EDT [facility] ([facility] [employer] [facility]) Chronic Care Management Services Ea Addl 20 Min 2020 12:00:00 AM EDT [facility] ([facility]) Chronic Care MGMT 20 Mins Clinical Staff Time Per Calendar M [place] 09/26/2020 12:00:00 AM EDT [facility] ([facility] [employer] [facility]) Anticoagulant MGMT For Patient Taking Warfarin, Inc Review & Intr 09/24/2020 12:00:00 AM EDT [facility] ([facility] [employer] [facility]) Anticoagulant MGMT For Patient Taking Warfarin, Inc Review & Intr 09/13/2020 12:00:00 AM EDT [facility] ([facility] [employer] [facility]) Anticoagulant MGMT For Patient Taking Warfarin, Inc Review & Intr 09/05/2020 12:00:00 AM EDT [facility] ([facility] [employer] [facility]) Chronic Care Management Services Ea Addl 20 Min 2020 12:00:00 AM EST [facility] ([facility]) Chronic Care MGMT 20 Mins Clinical Staff Time Per Calendar M [place] 08/24/2020 12:00:00 AM EST [facility] ([facility] [employer] [facility]) Anticoagulant MGMT For Patient Taking Warfarin, Inc Review & Intr 08/21/2020 12:00:00 AM EST [facility] ([facility] [employer] [facility]) ECG ROUTINE ECG W/LEAST 12 LDS W/I&R 08/09/2020 12:00: 00 AM EST [facility] ([facility]) OFFICE OUTPATIENT VISIT 25 MINUTES 08/09/2020 12:00:00 AM EST [facility] ([facility]) Anticoagulant MGMT For Patient Taking Warfarin, Inc Review & Intr 07/30/2020 12:00:00 AM EST [facility] ([facility] [employer] [facility]) Anticoagulant MGMT For Patient Taking Warfarin, Inc Review & Intr 07/24/2020 12:00:00 AM EST [facility] ([facility] [employer] [facility]) Chronic Care Management Services Ea Addl 20 Min 2020 12:00:00 AM EST [facility] ([facility]) Chronic Care MGMT 20 Mins Clinical Staff Time Per Calendar M [place] 07/18/2020 12:00:00 AM EST [facility] ([facility] [employer] [facility]) Anticoagulant MGMT For Patient Taking Warfarin, Inc Review & Intr 07/16/2020 12:00:00 AM EST [facility] ([facility] [employer] [facility]) Anticoagulant MGMT For Patient Taking Warfarin, Inc Review & Intr 06/26/2020 12:00:00 AM EST [facility] ([facility] [employer] [facility]) Anticoagulant MGMT For Patient Taking Warfarin, Inc Review & Intr 06/04/2020 12:00:00 AM EST [facility] ([facility] [employer] [facility]) Anticoagulant MGMT For Patient Taking Warfarin, Inc Review & Intr 05/22/2020 12:00:00 AM EST [facility] ([facility] [employer] [facility]) Anticoagulant MGMT For Patient Taking Warfarin, Inc Review & Intr 05/15/2020 12:00:00 AM EST [facility] ([facility] [employer] [facility]) Anticoagulant MGMT For Patient Taking Warfarin, Inc Review & Intr 05/07/2020 12:00:00 AM EST [facility] ([facility] [employer] [facility]) Anticoagulant MGMT For Patient Taking Warfarin, Inc Review & Intr 05/01/2020 12:00:00 AM EST [facility] ([facility] [employer] [facility]) Anticoagulant MGMT For Patient Taking Warfarin, Inc Review & Intr 04/24/2020 12:00:00 AM EST [facility] ([facility] [employer] [facility]) Anticoagulant MGMT For Patient Taking Warfarin, Inc Review & Intr 04/17/2020 12:00:00 AM EDT [facility] ([facility] [employer] [facility]) Anticoagulant MGMT For Patient Taking Warfarin, Inc Review & Intr 03/21/2020 12:00:00 AM EDT [facility] ([facility] [employer] [facility]) Anticoagulant MGMT For Patient Taking Warfarin, Inc Review & Intr 03/13/2020 12:00:00 AM EDT [facility] ([employer] [facility] [employer] [facility]) Results ID Date Data Source [id number] 04/02/2021 03:35:00 PM EDT [facility] ([facility]) Name Value Range Interpretation Code Description Data Yany rce(s) Supporting Document(s) Magnesium [Mass/volume] in Serum or Plasma 2.0 mg/dL 1.8-2.4 [facility] ([facility]) ID Date Data Source [id number] 04/02/2021 03:35:00 PM EDT [facility] ([facility]) Name Value Range Interpretation Code Description Data Yany rce(s) Supporting Document(s) Glucose, Fasting 91 mg/dL 70-100 [facility] Blood Urea Nitrogen 21 mg/dL 7-18 [facility] ([facility]) Glomerular Filtration Rate Laboratory test result [facility] ([facility]) <content>Units are mL/min/1.73 m2</content>
<content></content>
<content>Chronic Kidney Disease Staging per NKF:</content>
<content></content>
<content>Stage I & II GFR >=60 Normal to Mildly Decreased</content>
<content>Stage III GFR 30- 59 Moderately Decreased</content>
<content>Stage IV GFR 15-29 Severely Decreased</content>
<content>Stage V GFR <15 Very Little GFR Left</content>
<content>ESRD GFR <15 on PALM AND BACK FORGER</content>
<content></content> Creatinine For GFR 0.92 mg/dL 0.70-1.30 [facility] ([facility]) Potassium Serum 4.4 meq/L 3.5-5.1 [facility] ([facility]) Sodium Level 143 meq/L 136-145 [facility] ([facility]) Anion Gap 6 meq/L 8-16 [facility] ([facility]) Chloride Level 111 meq/L 98-107 [facility] ([facility]) Carbon Dioxide Level 26 meq/L 21-32 [facility] ([facility]) Calcium Level 8.9 mg/dL 8.8-10.2 [facility] ([facility]) ID Date Data Source [id number] 04/02/2021 03:35:00 PM EDT [facility] ([facility]) Name Value Range Interpretation Code Description Data Yany rce(s) Supporting Document(s) Natriuretic peptide.B prohormone N-Terminal [Mass/volu me] in Serum or Plasma 3616 pg/mL [facility] ([facility] [employer] [facility]) ID Date Data Source [id number] 04/01/2021 12:06:00 PM EDT [facility] l Patient: SHAHEEN DAY Observation Report - [facility].VisitID: [id number] [place] [address] [phone], MRegistration Date/Time: 03/16/2021 08:31 Weight:83.9 kg (S). Height/Length:64 inches (S). BMI:31.8 PAST HISTORYMedications:Vitamin c Oral (Tablet 1000 mg) 1 tablet, daily, last dose yesterday.amLODIPine Besylate Oral (Tablet 2.5 mg) 1 tablet, daily, last dose yesterday.Multivitamins Oral 1 pill, daily, last dose yesterday.Aspirin EC Oral (Tablet Delayed Release 81 mg), daily, last dose yesterday.Digoxin Oral (Tablet 250 mcg), daily, last dose yesterday.Doc-Q-Lax Oral 100 mg, bid, last dose yesterday.Furosemide Oral (Tablet 40 mg), in am, 20 mg in afternoon, last dose yesterday.Metoprolol Tartrate Oral 50 mg, bid, last dose yesterday.PHENobarbital Oral (Tablet 32.4 mg) 2 tablets, 2x a day, last dose yesterday.Phenytoin Oral 100 mg, 3x a day, last dose yesterday.Potassium Chloride Danica ER Oral (Tablet Extended Release 20 meq) 1 tablet, daily, last dose yesterday.Spironolactone Oral (Tablet 25 mg) 1/2 tablet, daily, last dose yesterday.Warfarin Sodium Oral 7mg 2 days aweek (6mg the other 5 days). Allergies:Nka - No Known Allergies. FAMILY HISTORYMother: Cancer. Father: Hypertension. (Electronically signed by Suzan Hitchcock P.A. 03/16/2021 18:47) Name Value Range Interpretation Code Description Data Yany rce(s) Supporting Document(s) ID Date Data Source [id number] 03/22/2021 02:55:48 PM EDT [facility] Name Value Range Interpretation Code Description Data Yany rce(s) Supporting Document(s) Progress Notes [facility] [id number] [facility] [file] [id number]== ID Date Data Source [id number] 03/21/2021 07:22:24 PM EDT [facility] Name Value Range Interpretation Code Description Data Yany rce(s) Supporting Document(s) Discharge Summary [facility] [id number] lbm [file] [id number]== ID Date Data Source [id number] 03/20/2021 01:47:18 PM EDT [facility] Name Value Range Interpretation Code Description Data Yany rce(s) Supporting Document(s) Progress Notes [facility] [id number] lbm [file] == ID Date Data Source [id number] 03/20/2021 12:38:29 PM EDT [facility] Name Value Range Interpretation Code Description Data Yany rce(s) Supporting Document(s) Nursing Note [facility] [id number] lbm [file] [id number]== ID Date Data Source [id number] 03/20/2021 11:53:36 AM EDT [facility] Name Value Range Interpretation Code Description Data Yany rce(s) Supporting Document(s) Progress Notes [facility] [id number] lbm [file] [id number]= ID Date Data Source [id number] 03/20/2021 07:32:28 AM EDT [facility] Name Value Range Interpretation Code Description Data Yany rce(s) Supporting Document(s) Nursing Note [facility] [id number]/[id number] lbm [file] [id number] ID Date Data Source [id number] 03/20/2021 06:27:00 AM EDT [facility] Name Value Range Interpretation Code Description Data Yany rce(s) Supporting Document(s) RBC Morphology \\Normal based on slide scan [facility] Platelet Estimate \\Low based on slide scan [facility] The above 2 analytes were performed by [facility] [address], ,[place] [address] ID Date Data Source [id number] 03/20/2021 06:26:00 AM EDT [facility] Name Value Range Interpretation Code Description Data Yany rce(s) Supporting Document(s) WBC 19.41 x1000/ul 4.80-10.00 Above high normal [facility] RBC 3.74 x1Mil/ul 4.70-6.[address] [facility] Hemoglobin 12.0 g/dl 14.0-18.0 Below low normal [facility] Hematocrit 36.0 % 42.0-52.0 Below low normal [facility] MCV 96.3 fL 80.0-94.0 Above high normal [facility] MCH 32.1 pg 27.0-31.0 Above high normal [facility] MCHC 33.3 g/dl 32.2-37.0 Normal (applies to non-numeric resul ts) [facility] RDW 13.4 % 11.5-14.5 Normal (applies to non-numeric resul ts) [facility] Platelet Count 92 x1000/ul 130-400 Below low normal [facility] MPV 10.3 fL 9.4-12.4 Normal (applies to non-numeric resul ts) [facility] Neutrophils 25.0 % 40.0-74.0 Below low normal [facility] Lymphocytes 68.1 % 19.0-48.0 Above high normal [facility] Monocytes 4.1 % 3.4-9.0 Normal (applies to non-numeric resul ts) [facility] Eosinophils 2.1 % 0.0-7.0 Normal (applies to non-numeric resu lts) [facility] Basophils 0.3 % 0.0-2.0 Normal (applies to non-numeric resul ts) [facility] Immature Granulocytes 0.4 % 0.0-0.5 Normal (applies to non-nu meric results) [facility] Nucleated RBCs 0.20 % 0.00-0.20 Normal (applies to non-numeric r esults) [facility] Abs. Neutrophils 4.88 x1000/ul 1.92-8.31 Normal (applies to non-numeric results) [facility] Abs. Lymphocyte 13.21 x1000/ul 1.20-3.70 Above high normal [facility] Abs. Monocytes 0.79 x1000/ul 0.14-0.97 Normal (applies to non-nu meric results) [facility] Abs. Eosinophils 0.40 x1000/ul 0.00-0.76 Normal (applie s to non-numeric results) [facility] Abs. Basophils 0.05 x1000/ul 0.00-0.22 Normal (applies to non-n umeric results) [facility] Abs. Immature Gran. 0.08 x1000/ul 0.00-0.02 Above high normal [facility] Abs. Nucleated RBCs 0.04 x1000/ul 0.00-0.02 Above high normal [facility] The above 24 analytes were performed by [facility] [id number], ,[place] [address] ID Date Data Source [id number] 03/20/2021 06:03:00 AM EDT [facility] Name Value Range Interpretation Code Description Data Yany rce(s) Supporting Document(s) Blood Urea Nitrogen 14 mg/dl 7-18 Normal (applies to non-nume donato results) [facility] Creatinine 1.39 mg/dl 0.67-1.17 Above high normal [facility] N-Acetylcysteine (NAC) and Metamizole barnes ve the potential to falselydepress Creatinine results. Baseline values before medication adminstration are recommended. Patients undergoing treatment with phenindione will have falselydepressed results. Patients on phenindione therapy should be tested with an alternativeCREA method.Toxic levels of acetaminophen may lead to falsely depressed results forpatient samples. Glomerular Filtration Rate 50.00 mL/min/1.73m2 [facility] GFR Reference Ranges:Normal Function or Mild Renal Disease,if clinically at risk:>or= 60Moderately decreased:30 - 59Severely decreased:15 - 29Renal Failure:<15 Please note that the MDRD equation requires an additional adjustment forAfrican-Americans (multiply the GFR result by 1.210).Glomarular Filtration Rate (GFR) is estimated based on the MDRDequation, which assumes a steady state for creatinine (Briseida Int Med 139/2 137-149, 2003), as recommended by the NationalKidney Disease Education Program in conjunction with the National Institutes of Health and the National KidneyFoundation. The [place] method used in calculating this result is traceable to IDMS standards. Glucose 95 mg/dl 70-110 Normal (applies to non-numeric resul ts) [facility] Sulfasalazine has the potential to false ly depress Glucose results. Sulfapyridine has the potential to falsely elevate Glucose results. Baseline values before medication administration are recommended. Calcium 8.2 mg/dl 8.5-10.1 Below low normal [facility] Sodium 140 mEq/L 136-145 Normal (applies to non-numeric resul ts) [facility] Potassium 3.5 mEq/L 3.5-5.1 Normal (applies to non-numeric resul ts) [facility] Chloride 110.0 mEq/L 98.0-107.[address] [facility] Anion Gap 9.5 [facility] Carbon Dioxide 24.0 mMol/L 21.0-32.0 Normal (applies to non-numeric results) [facility] The above 10 analytes were performed by [facility] [id number],[facility] [id number],[place] [address] ID Date Data Source [id number] 03/20/2021 04:18:19 AM EDT [facility] Name Value Range Interpretation Code Description Data Yany rce(s) Supporting Document(s) Care Plan [facility] SRWUBa5pSeONMiEo71/FYLxqBCUqa0OpZFrvVTl1LSwuYUWvL4EyKRH3fG5fXJV8EQqLNaAtSiXwLJD4 [facility] [file] EHc2DHVnG3Z6PhGhFK1OJb4ARbZ0UGP2yRZnAy1FUdI8XFWEYlYoCE3LGBm= ID Date Data Source [id number] 03/19/2021 08:25:41 PM EDT [facility] Patient: SHAHEEN DAY : 1950 M RN: [id number] [facility] PELVIS W CONTRAST Provider: RHETT GEE of the abdomen and pelvisHistory: Follow up sigmoid mass seen on colonoscopy. Technique: Multidetector helical CT examination through the abdomen and pelviswas performed. Multiplanar contiguous axial, sagittal, and coronal reformattedimages are presented. CT imaging was performed utilizing dose reductiontechniques including automated exposure control and iterative reconstructiontechnique.Contrast: 100 mL intravenous contrast was administered for the exam. Oralcontrast was administered for the exam.Comparison: No relevant previous exams are available for comparison.Findings:Lower chest: Cardiomegaly. Left atrial enlargement the left atrium measuresabout 9.4 x 10.2 cm.. Multiple metastatic nodules of various sizes seen at thelung bases.Liver: Multiple metastatic lesions in the liver largest in the posterior segmentof the right hepatic lobe measuring 4.0 x 4.8 cm.Gallbladder and Biliary Tree: Gallbladder is surgically absent. No calcifiedgallstones are seen. There is no biliary ductal dilatation. Spleen: The spleen is not enlarged. No focal splenic mass is seen.Pancreas: The pancreas is unremarkable without mass lesion. Adrenal glands: No adrenal mass is seen. Kidneys: The kidneys are normal in shape and size. There is no renal calculus.There is no worrisome renal mass. There is no hydronephrosis.Vessels and lymph nodes: There is no abdominal aortic aneurysm. Diffuseatherosclerotic disease of the abdominal aorta. There is no retroperitonealhematoma or lymphadenopathy.Bowel and peritoneum: There is no bowel obstruction.Exophytic mass in the wallof the colon. No ascites. There is no free air. Bladder: Brachytherapy seeds are seen in the prostate.Pelvis: No pelvic masses are present.Abdominal wall: There is no hernia seen. No inguinal lymphadenopathy is seen.Bones: No lytic or blastic lesions are seen. There is no fracture orsubluxation. No gross osseous pathology is seen.IMPRESSION: Impression: Multiple Metastatic lesions in the liver. An exophytic mass arisingfrom the right lateral wall of the colon, best seen on seriesA 1, image 102measuring about 2.3 x 2.1 cm.Multiple metastatic nodules at the visualized lung bases. Exophytic mass in thewall of the colon. No ascites.Brachytherapy seeds are seen in the prostate.Electronically Signed by Carlos Kaye MD 03/19/2021 8:25 PM Name Value Range Interpretation Code Description Data Yany rce(s) Supporting Document(s) ID Date Data Source [id number] 03/19/2021 07:20:25 PM EDT [facility] Name Value Range Interpretation Code Description Data Yany rce(s) Supporting Document(s) Nursing Note [facility] XBKQGv3lJvKEXnYg82/FZWfwSMJai6OeZYjwLOx1QYygOCEeA1RwLGF3gH1yCAS9RBhYQuEdDrLvTUQ2 [facility] [file] [id number]= ID Date Data Source [id number] 03/19/2021 07:17:49 PM EDT [facility] Name Value Range Interpretation Code Description Data Yany rce(s) Supporting Document(s) Progress Notes [facility] DHCSJf2iWzHVWcCz79/RANhbTSSfh7TyOHjhBMz5QEfgBALzA8LwUVZ2hU7oKJL8CCpHGlOpQfUrHYV8 lbm [file] ICAgICAgICAgICAgICAgICAgICAgICAgICAgICAgICAgICAgICAgICAgICAgICAgICAgICAgICAgICAg ICAgDQogICAgICAgICAgICAgICAgICAgICAgICAgIC AgICAgICAgICAgICAgICAgICAgICAgICAgICAgICAgICAgICAgICAgICAgICAgICAgICAgICAgICAgIC AgICAgICAgICAgICAgDQogICAgICAgICAgICAgICAgICAgICAgICAgICAgICAgICAgICAgICAgICAgIC AgICAgICAgICAgICAgICAgICAgICAgICAgICAgICAg ICAgICAgICAgICAgICAgICAgICAgICAgDQogICAgICAgICAgICAgICAgICAgICAgICAgICAgICAgICAg ICAgICAgICAgICAgICAgICAgICAgICAgICAgICAgICAgICAgICAgICAgICAgICAgICAgICAgICAgICAg ICAgICAgDQogICAgICAgICAgICAgICAgICAgICAgIC AgICAgICAgICAgICAgICAgICAgICAgICAgICAgICAgICAgICAgICAgICAgICAgICAgICAgICAgICAgIC AgICAgICAgICAgICAgICAgDQogICAgICAgICAgICAgICAgICAgICAgICAgICAgICAgICAgICAgICAgIC AgICAgICAgICAgICAgICAgICAgICAgICAgICAgICAg ICAgICAgICAgICAgICAgICAgICAgICAgICAgDQogICAgICAgICAgICAgICAgICAgICAgICAgICAgICAg ICAgICAgICAgICAgICAgICAgICAgICAgICAgICAgICAgICAgICAgICAgICAgICAgICAgICAgICAgICAg ICAgICAgICAgDQogICAgICAgICAgICAgICAgICAgIC AgICAgICAgICAgICAgICAgICAgICAgICAgICAgICAgICAgICAgICAgICAgICAgICAgICAgICAgICAgIC AgICAgICAgICAgICAgICAgICAgDQogICAgICAgICAgICAgICAgICAgICAgICAgICAgICAgICAgICAgIC AgICAgICAgICAgICAgICAgICAgICAgICAgICAgICAg ICAgICAgICAgICAgICAgICAgICAgICAgICAgICAgDQogICAgICAgICAgICAgICAgICAgICAgICAgICAg ICAgICAgICAgICAgICAgICAgICAgICAgICAgICAgICAgICAgICAgICAgICAgICAgICAgICAgICAgICAg DDSpICOcSMErXWPgDFl1H0ecMSZnQVMlLP8dFBx2Zk 8+AUePViEmTNA2hpWmmO7FRR4rc1KdBUeyTIJjs2MlPPq5RO1VSZItVRagYD9RSIsbpl1EOHEbCIDbvH WCd5hzKoOeOUX4TSGxJgvsFA8UWZNhV4ygfkFyXYLqYCGMTCrjEKNOUXsaYXPLQC9ZUoYzG3LeyE43XF MNCj4+FSmeytRlPdbGIvB6BIHwo7XwBJh9LP0BXPNv Fsije4HoBdHcYYGOZKdtRD7DWLJ4ARJ0ABBaMs9XQEFuP767ztXbQD0QSd5GQoLuTS5byv5FLpRbUIJr XwsIEcm8AAbvIP2FqLAuOWmZdu7tzjNswcPTz5RpgxXdxKTHtMopeDQqEKVuaHMje6ZkjQAcwHxkQEFP TYCadCQ5HnU7IvOsWoNnWEA9PTinFF0xMPdtMY9GHC Y2ZMqqOJJzWANvG6rIHxBdIAzoWDVkoWohCI9UAcKdJ1VtwzIluSFpFRPyCHXQUj7+DQplbmRvYmoNCj L6VSVuu5UlSXp9LG9WWKVkIXybSZ0YRQGixM3vPIelPK5OBkJzGvXdPVQNKhXuD11joABxCXl5U9NkOp VkZGVkRmlsZXMgPDwvTmFtZXMgWyBdDQogID4+ID4+ BExoQH5RPPfuzyHuQNRfCj0SNXRgMPHxAE9uDONnTEDxJ8C5hIfsPVJUWkIzW5bpfyzhNU3oTLRwV465 tJxnpuFsLCB9TBVaTl8XBPSkQWG1UOVfpTPpRlIlFJMFRWprJT4WyTLpWUI6kB0vRGnpYQSgLCBnY8iC DxQnyOdyOP96vErzwzZwoPDrIRa+Ec0GLQ1bl1ZmJO i4dvEnTYvdRAQ5UHyxZZLeLYKfFCKoIIP7MQQ2UHAUYiKmXCNaQCZuWFtlRQKgSHPxqg6RLWSvYRQiQC jwJZTvSSDwEOYdJYmbXGYeXHTlUay4YHGkQWLeNN1VReFtBHYeRVYxUZhfLEPqQNHmlq0LURZxSBJdUn z4XBZvIDMhWLRtPOlbPZMuFUQbIEXiWLOjYLPfOU3W ViNxEKLcMELwQEAqIQCpIEMuna8JXFUyKODkQKMnDZQcUQYlFIOxFEinTMVqZTL1Fce8FOIwHCDsDF0R SdXzRXUhZVl6LOWeGPDyJLOoua4GULBaNNWePZT3LJBnWKJnDVZdEDoeQKLwZDK1KcQvUOHcBBZrOE9Q CdLkGHVyOYk3KeSkIOMwPLVjop0SZLOeKFQyJMb8RA IxMRMqBFIbFPgmQRWrVWHaAVd5VBErMQPpGT3YMfXiBRWjRKFwUxPwLUVdVAPued9FFATyLORnXSAhVK CjBDErXOUwLVixAWPdRYXaAJZ6DOTyLWNsME1JVtXmLKGaUYT6YTAlDZKlEOWofb4CZVEyPRBoLtJ3Bu NmYJRqRMKfUInoEHMkBYGuZfkvRSPcSHJgMT5ZFbDi RHAzUUD4SjPbWIMkAFVssg0RIFJjVGHwKjjwEIMjMWTcZPYdQJbkZJChXJG3LIS3DFWwKZTfYF9DLxFi TGLqILXcHIUkRJLnEVBtms4HXJUkGBVcVfUwMJLaSPSjHFXfERsbZVHeLUS5DVO7MEQoHQBgWZ7VSuQk IPXnCmmnDowgJQSaIMLbod3ZOFPzKKKuJCAaYWDfRS ZqSLVsYPzcVNWyGKI1NGI8EAGqDYIrMH0GGiIfLAHxRmn1HFUxCEMfSHJbds2TGQVmEAMbVMP1IFLqFM PfAFMnIIwrZUJuRXS4MIeqQDRvTYSwSF1HWjIhXQUtIuAhDBfeYFGuSDXvli3BDWIeUPMeLSz0RCExID KfTWIeQBavTRTkWESfHRJ7QOSxIMPrDL3AYrJjVCRq UeVlYqWcDSSrRBRrxn2MeYXljNojhy3ZVYwXPz3IlMnsHQQ0BCfwMm6bcIBkJmJtGOXBKc6KuvLsXMAy BIGLHDukPBTcUQowOSZlQ7RcOVfiL9FdEFC9L7FxWGIoTQEvVJTdSUWkXjZ6AHGvXBI3YlWzEkJ6AbUj EQXsCeE8QPZ5MDQ2TUD8DCU+ZE3uLNb+Zk0St8XwtoG2veVwSWebAyR7ZD0DOVHMS3GJJv== ID Date Data Source [id number] 03/19/2021 07:17:34 PM EDT [facility] Name Value Range Interpretation Code Description Data Yany rce(s) Supporting Document(s) Progress Notes [facility] VAKQTd7oLyRDFkSq09/DBSmhFCNoy7FqBFlbRWb3JQpiFIIoW9GfWOS1cB4dUZX4MFuJWbBoOiGdOEC2 lbm [file] ICAgICAgICAgICAgICAgICAgICAgICAgICAgICAgICAgICAgICAgICAgICAgICAgICAgICAgICAgICAg ICAgICAgICAgICAgICAgICAgICAgICAgICAgICAgIC AgICANCiAgICAgICAgICAgICAgICAgICAgICAgICAgICAgICAgICAgICAgICAgICAgICAgICAgICAgIC AgICAgICAgICAgICAgICAgICAgICAgICAgICAgICAgICAgICAgICAgICAgICANCiAgICAgICAgICAgIC AgICAgICAgICAgICAgICAgICAgICAgICAgICAgICAg ICAgICAgICAgICAgICAgICAgICAgICAgICAgICAgICAgICAgICAgICAgICAgICAgICAgICAgICANCiAg ICAgICAgICAgICAgICAgICAgICAgICAgICAgICAgICAgICAgICAgICAgICAgICAgICAgICAgICAgICAg ICAgICAgICAgICAgICAgICAgICAgICAgICAgICAgIC AgICAgICANCiAgICAgICAgICAgICAgICAgICAgICAgICAgICAgICAgICAgICAgICAgICAgICAgICAgIC AgICAgICAgICAgICAgICAgICAgICAgICAgICAgICAgICAgICAgICAgICAgICAgICANCiAgICAgICAgIC AgICAgICAgICAgICAgICAgICAgICAgICAgICAgICAg ICAgICAgICAgICAgICAgICAgICAgICAgICAgICAgICAgICAgICAgICAgICAgICAgICAgICAgICAgICAN CiAgICAgICAgICAgICAgICAgICAgICAgICAgICAgICAgICAgICAgICAgICAgICAgICAgICAgICAgICAg ICAgICAgICAgICAgICAgICAgICAgICAgICAgICAgIC AgICAgICAgICANCiAgICAgICAgICAgICAgICAgICAgICAgICAgICAgICAgICAgICAgICAgICAgICAgIC AgICAgICAgICAgICAgICAgICAgICAgICAgICAgICAgICAgICAgICAgICAgICAgICAgICANCiAgICAgIC AgICAgICAgICAgICAgICAgICAgICAgICAgICAgICAg ICAgICAgICAgICAgICAgICAgICAgICAgICAgICAgICAgICAgICAgICAgICAgICAgICAgICAgICAgICAg ICANCiAgICAgICAgICAgICAgICAgICAgICAgICAgICAgICAgICAgICAgICAgICAgICAgICAgICAgICAg ICAgICAgICAgICAgICAgICAgICAgICAgICAgICAgIC AgICAgICAgICAgICANCjw/xWVcN4labCAubaN7V3ocZz9JYb3SES7pc5JaECQmWEacglQeXwbYJyYzUT TyHxtOQwd8VVfkGT3JjZLcQ5OsS3NwNGnkNM8STJPaHDWrjGRkKGTtMBUiTzD8OUBrORzxOJ1OlFBfTF uqQRJyIRUnNeXtAQMiJXEbONMiAM2HPRNoZ210oqFr Iw2IAm7RUxUjBG4for7HCcloDPLtPxaAEsa0NRflLP8YaDXlmLWaYPBpPBRDFsBqL3jpf4VeEfszXBUH ICseBD9Dt8TgvZUzQDi+Tc2QUJ4ho8SyMRjyRRYfOW4rhq6UJLmBPfOcK6MxhCcmJVTrv5csILZlNY4e pXPrXYL7WWYjGBFzsGCBbS7sMBvenXVpvhzhAtGqZP XxTL1sKc7wFHUgKMMgTxZ9PJWUCX0QLYKqGXIzjSErYJCrPQYJIL6FIFqiOWL6IckawyNpfQMwWCdpZJ 9QYXJlbnQgMjcgMCBSDQo+Ks0UFO7ul6NrPHaaYAChST7hre0HWLlWLtZoX2U6lOEgJ8A1NGevQf2GOQ CfNISvPdXjULIWHYfcXX9MPG6pcfT9HQ4GjSYmGHFv YQJdmQOlNYk3G39khZVhSUskGX4GKWW+Frantz+Tq9NWKJuKPYzUSYdGrOxHRJYRgEvQ8CqI4RQn2SlC5Aa VV67vHwshbBcUMhgOU9JSJ5hMLYiZGYRXD8NmTZnqH3ywfLvVuLbITWLCdSkF16cuFGbTRPjQDC9MZJj Ky1NQTHjA4OvjpNyrNtadxXpUNUyQCYBLM4EZZextk FhsMUamHtlOW96lNsdMD2EXc2VTsZzEJ4rds7YxXEwHm4QYFHaBU7SRKArWUIoJXMdGOL1VDCtSnEmKG eaNUYtPGZaENI9LYGnPTYoFH2DLgYuNELaCMP8NSHzZGHyZHGyis6RLFGyXCOiPjN4NrVgLUBjPBAyNE erJTMzJZXnGBC4UIKkYCOcHH8ROiNgASKuQHCyEfGu DCFoNVHumm3SNKAvLXSkKlQ7ESLbEJKcSXNxRBstKPBzWZJ5YfNhSWPsGDBcTI3GWmUwLDCzWHP4XPbr IJYhADPzkj9HFWKmDDExFrMbVBSbEILaEOYjJFxeQBBvOVC1MkU5SFWdXDPgHY2KUyCeTSXfWKg2XYQg IRFhYIBnle1JEWTdJGFmUNk0ToQpYODuXWYjKKzwSD NmKDO7NSu7QPFoANHhKA4SVzMlDLWzEVMaMVNkTYHnGIGpmo0OYFDnAWCzITC3SPXgMGMmJVBmIYnrJT NdBSVsPMI7MMYkMFEdRA5IIoLpCGXsGVOoUAOuTYIoQENlkc2MSZVzXEJcJUX4TiXhXNBdGFAsAWuxZX GqTPQuHcK5OOFgFQXuUY5VDwUbDPCrYYJ7MwvnPZEy GMZnik2LLFAvIQCeMxerULBaDOWzOFEvDKueYEExLSDbEEF3WHFiMCMiVE2CMaFvCQMhEPRvVUHnSGNb QUBuww5WVFXhEGIiMUV7HhYsGLRrKNTvKJlrSXDvWEK2VZE6SXXjDDUnAC8LFsRqHAUgZED8KfmfCTNo JQGyvb5DSMKcMZCfZxH6GsWuVUIpMPDuMGhaZXWtZV N0SBX3ZCQvAVMqXL4OMiMxYMWxLFL1OHDgSSWtUXBqgu8SiTVweVxwca8SWNrICd7FoPxgHAFzYXsfEa 1tkZEeVMByUZULYy2UjeKhVGBiYJNZHWbfNSBeUBPvQLTwZfP7DQBzTZK8KLM1AYZ5PyQ3PGSyE5JeDB ryBeU8XNKjFsCmBJvpLKZqGkZgTSw9KQI7HAF6RjI1 ZDFhNzM+IW0uVBb+Du2Jo8SseyX9bpDhDTuxQqg4GF0VSVPBW1MMYk== ID Date Data Source [id number] 03/19/2021 05:14:57 PM EDT [facility] Name Value Range Interpretation Code Description Data Yany rce(s) Supporting Document(s) Consults [facility] OAJMNi5dVuDQEcZa90/XNPeiUDLsm8XqAMewPJh9RLoeLKXlU4QfSTM5wT0jBVZ9SEsJNpJbTtBmPXW6 lbm IvBzuJFuMxHAVzXzsIFiPjVEswXswlkIUmXJ2GuLB9XIAcP17qRVLqZVZlD9NcDNRjLOG+Ej4CALCogC JlOU3HDslP1O6Lz+I5Yl0w3l7STPWcfKtD95KyIzSWpDdJrrq1iSX5dRWm7m4jCly1E54rH7tONJzxpt 5DBAIn2nuVYcHrV15+cL4BGrLpj8+oozTWWqvV//Wv rY9Z5On06J6fUsj335LfF9jg9tBQgB8tE1jal3N8oLXpmgHlI60cMYXV8wQzdXqOWgN7PBJrX4po1oFq /FlgmvlNpocR+QNVOS7xKZtFvXTvxdXxrCU/OnXPxQn5yrxLa2/QhJ7UUIBnSPAlxe6cMxkOmUifl6LB N+/op/SdRLr786YxXQw0YeLdh2Wh+5davsE9oT5tTD uzMKEssKVNJAY/ReFdmf2DqeNnhIJK9ipjiSsVtxd8bKUyf3QqgwodK2UTtkf2OpkI2N+pKnX9psGGO6 metBXToU/TDqk9cWZwo5pleJkjvfzlh7VoX75fNJoITbGakq/JCmi4t1jB4j9VIBvuZKLDzMkN41nas+ ztB35icmRQANlujs/9gh88ONqKw6xyr8g91m71m96v rFJDhhzycLOv6i3SzD5uH3kdV3k/DYNLHp6kcxWE1VZOlyNc/vUPrU/GLASS WORKER/+aBy5jwuduDsAdJqCQ/afC [file] yhxrM0VLR+WB2kBRM6SGSVOIWbfXv4YwaIj362ZpHGr0OwlUE8JBn/financial risk manager/0IGCDJP6k822pEVj5zjcxp4 [file] AgICAgICAgICAgICAgICAgICAgICAgICAgICAgICAgICAgICAgICAgICAgICAgICAgICAgICANCiAgIC AgICAgICAgICAgICAgICAgICAgICAgICAgICAgICAg ICAgICAgICAgICAgICAgICAgICAgICAgICAgICAgICAgICAgICAgICAgICAgICAgICAgICAgICAgICAg ICAgICANCiAgICAgICAgICAgICAgICAgICAgICAgICAgICAgICAgICAgICAgICAgICAgICAgICAgICAg ICAgICAgICAgICAgICAgICAgICAgICAgICAgICAgIC AgICAgICAgICAgICAgICANCiAgICAgICAgICAgICAgICAgICAgICAgICAgICAgICAgICAgICAgICAgIC AgICAgICAgICAgICAgICAgICAgICAgICAgICAgICAgICAgICAgICAgICAgICAgICAgICAgICAgICANCi AgICAgICAgICAgICAgICAgICAgICAgICAgICAgICAg ICAgICAgICAgICAgICAgICAgICAgICAgICAgICAgICAgICAgICAgICAgICAgICAgICAgICAgICAgICAg ICAgICAgICANCiAgICAgICAgICAgICAgICAgICAgICAgICAgICAgICAgICAgICAgICAgICAgICAgICAg ICAgICAgICAgICAgICAgICAgICAgICAgICAgICAgIC AgICAgICAgICAgICAgICAgICANCiAgICAgICAgICAgICAgICAgICAgICAgICAgICAgICAgICAgICAgIC AgICAgICAgICAgICAgICAgICAgICAgICAgICAgICAgICAgICAgICAgICAgICAgICAgICAgICAgICAgIC ANCiAgICAgICAgICAgICAgICAgICAgICAgICAgICAg ICAgICAgICAgICAgICAgICAgICAgICAgICAgICAgICAgICAgICAgICAgICAgICAgICAgICAgICAgICAg ICAgICAgICAgICANCiAgICAgICAgICAgICAgICAgICAgICAgICAgICAgICAgICAgICAgICAgICAgICAg ICAgICAgICAgICAgICAgICAgICAgICAgICAgICAgIC AgICAgICAgICAgICAgICAgICAgICANCiAgICAgICAgICAgICAgICAgICAgICAgICAgICAgICAgICAgIC AgICAgICAgICAgICAgICAgICAgICAgICAgICAgICAgICAgICAgICAgICAgICAgICAgICAgICAgICAgIC AgICANCjw/fEVtI2phuFUljyO4Y0oiYf3PPz5GEK2h t7LwSHVzCRykjeNgCjtMKrXkUOWyYvzKZrx6ZZeyVG5VlSZgY0PqD0DwKHopPO9SDGLgLNWbfBQjLCEr DFMhMaO9CKJwQNstXL2SkBPeZZgjPZNmGCWlZwIrLXIoPYWdBDPvZG0WWCYwM203upQlOy6UEg7OHyMd XQ9ifp7SYUJsRHJaEfuMTzw8CWegOX8KuSIvwVL7IF YyUNQQQfEcP8vef3BuWGPmHZCQFVvxSD4Or4YhhSIvLPw+Nk6WYO9cz6BcTTt3RVBvUT2akc1JMNuPHm XzG7QaiWykGVFagtL3iJPqEDD7GZE7xLEocuBaDzL6nPDsLU2RLGT3OOeiNlgpWhLaQNSeEAiyKUMNYG nRJqFyA0Dac7BdCbS9LVIxBnYiPVsyOURoEnB4QO49 dLhtBK0TCLSgPGYjPE00VMKrEDOhWo6DGq2DNaKlXO7mjp4JCPLwGBNzXelMNlf3DQjvQV2WeQBhJ9Wi lNXai5zRYmGzE1AMONE9WVIiLw7FBODfEjThFXToZJjpKK3dBKInEKUZbMfyysQ5LW0COD7rbbBxEQ3K XtEgEj9eNb9BBhMyX8LaQ9IhFEUdTNQZIQpdSX7SZD hgYT2zGP2Mu2ZDcARdqG0etf4NYZEfTCDoOpzsvw2DGlpvP2V1gPqcXXGrSOOaVTQKAZbxJT3UJUTyWH W7KTNuDCZlOBEBUsUrD65lUU4ZY1Fqf41kZrH8KQIuWiSnRWvaNF75hVbgriAnyHBznJqxBZ1DKw1+DQ plbmRvYmoNCnhyZWYNCjAgNDMNCjAwMDAwMDAwMDAg BdF8TuKiKi0IMHIhWTIhSEHlFdSuHICyRLDlHEbxQCZnRNG5WDv0OUMfORPiDI3QTxIdZRTkPFXhWxVe EYGsRWAgmn7XZRZgPLQwSHL5NpKaCWAnORJkWBzjPSSnCXFuIuH4HCXnFPQvHW0KQiIrXLRkBCY1OlJu DGAtPLSvju0SVTRgFBKhCzQ3GlWhACNaJJGyBVfyTA NdPSA7LwRwEBEyPUVcLW4QUwIpKSXqQXa9VZNvNSLlOETqql4CWDZqVNKyPRXnZEYfAGGlIXFrFPyrFC ZtHMW3QSs8YIFuQJSwXU7TIaBtRWCaWDa8QYCcLBSnSPHmeq8EBXXsEOAbEIq7LBAyFCKtDSGnMYgiKW ZtNZPrBXZ4RCFzQJFoRH5FSdEkBNLjMKBcBuIlWOCi TDCzhe4GCSXiTGYvBVFnFAIlNAXeZPRdSUkfNSKyGPDpStR8QBBtDMPuCG5EYlAnVCYaGmY7DzFgENDs AEIeea1KGZNtQICcGLE1JuWqTKXtKTJfZUkyQBBzOLG3MPReLCHaGKGbUE2RNpJuGHXlBoG2XexeDDXj WCPjjq0WUDQuAUMsXEMvGuWhNPWiPMAqUGngIATyBE F3FlMzTDDtNDMoYQ7TQuSoFGPqVbJ8XONoFSSeTOJmde0NFECxKXOzUedrVYBeAVGmILNsIGllBADyZF A2WGV0XYUzKFHgQI5CHnWuWRNsRkfnHTjmVLOgTKThob6RCHDsJIQdQYB0DAEpNTRxFWGrCSdnJCJeZT Q9NoB2FFAhLCMlAJ5ITxEkDXTpRkn3KMrhQYWjDATl ga9EEWLqORXfOSU3KWGqFPXbJWVgHTatORQfAKU4LfJ5VIUlGNEgGP1OYwZiWMJfJmm5GIisXTVjEEMf gg7GIJZeHOJ9HrZ8KsGbONQfYSZnUUveFIErJGRgPwUvFITpSQXzOK2FFcAaDTLwCAH5AhwpKBEwNKZb nf7MDALcNMM3VSCqKNWuEGEbXUWwURfsANAbWGA8FP UeTSRzUHZxUJ7LKiItJHZlFWHcWiGiMLSiUULkag3MDXGrLSX8QaG0FCBqXYVcDYZjIAmpBEHcJIV6QJ W1XKDxRVXzNM3SLbPlOUUzHMT0BIchPEUiOYWale7ZlNMzvFrgzs7UDNeDRz3FaOetVXUtKQufIu1joD N8IwKzMJQUYc3FwdHaRZVqCQFQPBriTWMePTAeWAMd HEP6Cvc6S8B7G0U3GLJaMQS9PPX7NJIxUUG8QlT4HKM5C6PmLCQrSNncVvbjWdJaUjN1JLngMlF9SxSs YTg+KE1aPTt+Np8Pk7AsotQ0btSkJGq8Ccl2IB6RFEEOT2VXMp== ID Date Data Source [id number] 03/19/2021 05:14:32 PM EDT [facility] Name Value Range Interpretation Code Description Data Yany rce(s) Supporting Document(s) Anesthesia Postprocedure Evaluation [facility] PCDGVg6kBcFYYuZv88/MMSzsLKSco7JsGKjxSHn7HNvtJQEpE4AkRSD8jW5lSWB2ZBlSBiRuUvEgMDI3 lbm [file] assistant health educator+9D9OT7//+CQUGewp3VFbdLidiXG5zE0O8n6lnRcnTcl+m6eClQvHQPkoeVn4OFGvRVxj44u2WLxc [file] JP1mDSz+Kp9Rz7TrpsT1hzRtRUqiAmw7QY3WCOXUF3OSDz== ID Date Data Source [id number] 03/19/2021 03:53:27 PM EDT [facility] Name Value Range Interpretation Code Description Data Yany rce(s) Supporting Document(s) Nursing Note [facility] OUUZTx0fUeKYPqCw30/JYUfgTZRut6FtJFwwGRg1KYoiVCCsW5XvARN3mA1dMLG5AOjPZwZoSgFwKNC3 lbm [file] ICAgICAgICAgICAgICAgICAgICAgICAgICAgICAgIC VeYGImGROaJCQeVX2AYPCgTBHiGHHuKUYgXNQwDJHaMDOxHNFdZBYxLWMhERWaJUGwUYYfSXBfFWHvSP EgVTMcWPLyMMIqLZSySFVfFIFjCMLrRSKvFFGxUEYpRZQzVKOhCOUfNYTfCSFyWLTdEOVnNE9QURXyVE AgICAgICAgICAgICAgICAgICAgICAgICAgICAgICAg ICAgICAgICAgICAgICAgICAgICAgICAgICAgICAgICAgICAgICAgICAgICAgICAgICAgICAgICAgICAg EQFeMX1DBLVaCXQlYEDiTVXkFKYoBIRiRFOvHLZtIGOzLIXwMPCbITSjVTCsEMJqFPNdGEYkYANyVPTw ICAgICAgICAgICAgICAgICAgICAgICAgICAgICAgIC BdLXHeYHXgPQPgZEBfHU1DTEDqPRCaXRXjMBGtXBRnXEDnHIGwPXYiWWZtYVGlCELfQKYbHOLuLOFzSK SnVJGjKWOxORXeUSZbLUBoWMMxSRYlSWPdLZItMJJqJNQeEMFiFGSxPQQkSLNjQSCoIGTtHPYhZJ9NQB AgICAgICAgICAgICAgICAgICAgICAgICAgICAgICAg ICAgICAgICAgICAgICAgICAgICAgICAgICAgICAgICAgICAgICAgICAgICAgICAgICAgICAgICAgICAg YLDiJPJzQL8QBDOtKLHrMJHnRHMfIBTbGBNiHAUnUXBdGGZnNNCcAIHjJHYwEZIkESClIXOtROVzLFTd ICAgICAgICAgICAgICAgICAgICAgICAgICAgICAgIC BkPXQtBROyQJJpEIKpPLJpBG8FXLMeMEJqNIRuFDLbZTRhFUCbJRCfZLAfFHOsPMCnAZKiGXJeMTMqWE AgICAgICAgICAgICAgICAgICAgICAgICAgICAgICAgICAgICAgICAgICAgICAgICAgICAgICAgICAgIA 0KICAgICAgICAgICAgICAgICAgICAgICAgICAgICAg ICAgICAgICAgICAgICAgICAgICAgICAgICAgICAgICAgICAgICAgICAgICAgICAgICAgICAgICAgICAg KGMnXOPcUPUlQK6HLYPwORXdZIZdJHZxFSGrUGDgWLVrKTSpTULiYRYiWTPfHIOaYUDjXBMlWVRzIDRn ICAgICAgICAgICAgICAgICAgICAgICAgICAgICAgIC ZmDDGoFCPfAPPzOWMrCXKtYKTxLE6YRV67tFJoc5L6QITnMY9jwtf/Sc9GRBtlvmIgjABcEV7MLaAqAQ 7kgd6BRaPrQX9uoc0BMReSShCfQ3J9tOLmIUUdLJCVUkPiF82yGTxvQy04ERbsNUQgGdUgJQe0Hy0YQq PrS0sePQCwPlY9VWDwYyAvOJwwDE0Em6NtyJIeJJw+ Oi3MKO4zg6IhXEiqUmLrWY6kfj5ANJiWMoVdQ0VriyQ8XIAoMRKcVe8ADFCcMROubQOgZgMqPEHGEfWn Q3DelL03EEMOIg5+UYaoajRnYsxPBxHlOZUoi0TqZJc7ZT7DUZSwSCa2tCViOfJdk8jjVbCKw0VwNPA0 ICPnaR5gDRZksd4qDzsuTv7vGTHzYO6xKB2qEYPoNK GeIlC5TACQZP4HFLWhKJCowPFxMBPbPURUIJ1NTIquOYB4HqnmuoFzhRUaASrjDM6LAVTkxxRiRaJfEB BSDQo+Rb6GPR6br0UwPOylKRZwDW5xws8MVVdTUfWdH4A3mGYvW4T1NSofGs3WBQPnOSLvUdJhMEZFUI yhQF8JQU4qjbL7YD3JgPInYKDnLDSgbSObPEt5M01v kGRgQJebHB9TQGU+Frantz+Bw0XGWTfVLMqSWMhNiIlTKZLQrHnL4JeF1ZWe9DaH1IyMF16vSgjejWzHEnb NR5XWT2sVIDqABEGKW0BjTPpdQ6sorNkLpGvPMYMYyEwW65jpXLoHUNkAEHtHONdYn6RQPFeI3LashYw bQxmljJfQVWkANPKOA9RLVjltwYvlUTgdTpkJJ17fN uoSJ4RMu0FQjUjSX0esa7OoKKnOa9DJJXfNB3ACRTgWVDdNBEjEXL2XXFhQpYmOIkgWMIcPXUwUNO3TS ZwSEXbBW8CBoCvKGWrQOv0YZMvRCZoGAFvjp2MFVTcEEYlKCGiZpAuGBYmMIUbRSckGKCzOUOnLWA7RH GxWDKlXL4MNnAkTYUdJIBvQNUbAJLjIDBsue8VLAEu TBEeWKVpYWDkIJTqCHBwQGroJJZeNDBoVWt7IORmRXOaOC5TSxAdUKCpEMZ0BrxcHIMcEQZkid7AZAYw YQKqYcs5ApIuNJZkDIIuMSrbPQNtPNJdWMGoEMLzJQYuUQ2DGzFrEHPuONJhCOyiQKIlUZOibd8JMMQi BHRpTGFnNORrJGChTZUuBBynXPEhPMU7KJHbWIGeFQ EhYD7UVfDqFISeGBM1QqIeAEIgLXHczb4JZHIdAMYpFpN8XXKaLVPrAGSdYWuhTOTbTUE3IaN4XYZtOR VhAM3VArRtSZXcPEb7JqDcCCNzKWGkxr9ZHXLfLOObYKFtStPsQCHtVSCmIMscBDCyRTN6SWc6OQSkJU PhTS7GLlMrSOOwUUb9RsVmAJKcAKQril8MJHDxNGEt SPF7RoHgXUOjZNMzWPwrADHhSPRoWlI4LNKhORKcVQ2ZFsWiEBYgXeP6CHIaYYXfOYAuui8LNLHoXBFd CMmvBZXdVZOeQFKqZUn7cyNmqVToFLv2JV8WE2ZmpcGmRvPCDb5Sp372DLV7BMJqYh0EB1lrEe0pHTFt WZQNCp4NZBr1YLAwFMNrQAT1ChodJMXbKjH5KUctHd UwMzkxYjUwYmU+VUfmJXCoSXN5YrRbQjM1MZZvKWA6FkZxSABrRNOwFTKfHD6sVBMIQr9+DQpzdGFydH oxEDOLLnXiTYa1JCsgWCCCEn0Q ID Date Data Source [id number] 03/19/2021 01:34:18 PM EDT [facility] Name Value Range Interpretation Code Description Data Yany rce(s) Supporting Document(s) Procedures [facility] OAJYYc4oGkJQYtZb07/BORreSMFdv7AsUCtpLVi2CKwsTZTqX8OvDKN2aF5wQDV4IOfTSbPqCdXvLED3 lbm [file] ICAgICAgICAgICAgICAgICAgICAgICAgICAgICAgIC AgICAgICAgICAgICAgICAgICAgICAgICAgICAgICAgICAgICAgICAgICAgICAgICAgICAgICAgDQogIC AgICAgICAgICAgICAgICAgICAgICAgICAgICAgICAgICAgICAgICAgICAgICAgICAgICAgICAgICAgIC AgICAgICAgICAgICAgICAgICAgICAgICAgICAgICAg ICAgICAgDQogICAgICAgICAgICAgICAgICAgICAgICAgICAgICAgICAgICAgICAgICAgICAgICAgICAg ICAgICAgICAgICAgICAgICAgICAgICAgICAgICAgICAgICAgICAgICAgICAgICAgDQogICAgICAgICAg ICAgICAgICAgICAgICAgICAgICAgICAgICAgICAgIC AgICAgICAgICAgICAgICAgICAgICAgICAgICAgICAgICAgICAgICAgICAgICAgICAgICAgICAgICAgDQ ogICAgICAgICAgICAgICAgICAgICAgICAgICAgICAgICAgICAgICAgICAgICAgICAgICAgICAgICAgIC AgICAgICAgICAgICAgICAgICAgICAgICAgICAgICAg ICAgICAgICAgDQogICAgICAgICAgICAgICAgICAgICAgICAgICAgICAgICAgICAgICAgICAgICAgICAg ICAgICAgICAgICAgICAgICAgICAgICAgICAgICAgICAgICAgICAgICAgICAgICAgICAgDQogICAgICAg ICAgICAgICAgICAgICAgICAgICAgICAgICAgICAgIC AgICAgICAgICAgICAgICAgICAgICAgICAgICAgICAgICAgICAgICAgICAgICAgICAgICAgICAgICAgIC AgDQogICAgICAgICAgICAgICAgICAgICAgICAgICAgICAgICAgICAgICAgICAgICAgICAgICAgICAgIC AgICAgICAgICAgICAgICAgICAgICAgICAgICAgICAg ICAgICAgICAgICAgDQogICAgICAgICAgICAgICAgICAgICAgICAgICAgICAgICAgICAgICAgICAgICAg ICAgICAgICAgICAgICAgICAgICAgICAgICAgICAgICAgICAgICAgICAgICAgICAgICAgICAgDQogICAg ICAgICAgICAgICAgICAgICAgICAgICAgICAgICAgIC AgICAgICAgICAgICAgICAgICAgICAgICAgICAgICAgICAgICAgICAgICAgICAgICAgICAgICAgICAgIC KiUIVuZSt7Z5etLGSsCEDoRT1dVRa3Vg4+CBzRTjXeQAP8ndOevI3BTL5mx5LfLZoiFHQnf8VzAAu1UH 5LWAMeBXfhMO0MGHtziy6PPNEtMEAyaGVSx5vlWpLn AVB6TXYyFetiZS2AITHzW3ieiqEyFQOpEJYKTTtbRYPESCzsDRSDCO9LYaPfC4FxhX19TRVWFc9+DQpl vvXiYblYMlY3WFXsk0IfASy5AJ4FQEWeYbnru3OoFrtoIHVCIVujRN8XVXN9TKE2OCEzCp0VHLVhH451 cdUzHN7AEz9JRjXoXN4pcd5EUnmtIANnRemDHfn2NS ibJJ4IjDLwTUpHki2oZGN2nsVxMHAwN73rKNNdjRGDQWPvRTPwvjwbUXGsdwsoRW0kWYIpUB3eYZ5zPZ TpIHDdWsO2CJMIXC2GWVEpGLHxbQPcLQDqJEGEEF2DDNvpVBC5GddapmNwbREyNTvpBW2USLJawiBfYe YgMCBSDQo+Tm2ZVF0io8FlQQrwISYbED5wwx8KARzQ WpKhS7E9nRFaO6M5SOkyGx0UYMLwNRRsVtYtAMBINFglTL0CZI2ojqU4DC7VyVCiVACbCLLpfUKjIZf0 M00auRTyHVmpZW7BWDH+Frantz+Qz2NASBpZRVnBYSjGgUmRVUHEeRiT9FyZ3AMe1LuK2JgFU69eBhxgyQv QNveDT8LPR9iMIIyOREYNI7MqOYenL0ufbLmMwLvQI SJIcJjS11aePLqKJDdSAF3PKSzCp1WEZEsN5HfyaSyyKhcaiYbUYTmSWHZYS2TXBscodBbnJXcwKpsRJ 22fOvaZJ6YOd5ZWmPxZX5btf4QjNOfOe4FMRYvTH2YIYRtLAKfDDZkUCA8TLApSkOaDKbtAPDrMSYiOL L4PMAtSQRqML5RHfKnBRVqBhKaKTmuXZSxWIBzsh7Y YYMdNOVcHvd7AVBvJDBvNYMsPOdhPNOpIESvJSH4PTXsSSCyCZ9UZmNuCWAbLDZbGTZgVZCeCHYdvo3E TWEcAHGuQaJ0CPBsLNCwQAJlHVwvPARgNXA1RQPqIUPtLZAjUY6CHiGcXVZkRSLoTCFiTBRlWPXllt9F NROnKHIzOWB5TBVhKMFaLWAyRXjpJGDdRQQ2JAq4LH StIJEmKK1HRfLwJHSxJVK0TRPzXKBxIUQcmq6AFMFkOBItBdI4CvNiOIZbEVVsLTloGZDcTUI8ItP9CL WmRJZhJH5QFsMlYZKjIZvsOFPqYZJbTIFtiy3FDNTeUNOzRkB7AMHmBFAaFITyUKjoRWDpLRC4OAs3EC AnRKNfII6EYiHdNEEmKOp8SmXkCXMrHURgzf5WPXDm JDBfGMAySMKiDHAvLLTbREeiKOVrHKDhORW8FGXmCBZdAQ5SOjGkUOTzOiH2THayJOBdRDMdjz8PXJWj KFQeGQkuKHJvJPWsYUHaGJtvTVIgCZRsPah3OHIgOJCdVX7BPeRuBXScPyZ4IyRoLCVgTLDpsd4GJDSn PWJwKzFeQfZpGRTzYLHgLJtyBCMfQMHeCEE4KUNlZB TbDW0NKvCxVTEhVwClSRLeZYMxRVXmkt6QMFIrQXPtXHQ1VVNyLJTbCXBrXBlzGDFmUHH7JqD7JMJiMM DyRK8CBsNgPYzgQYWVRti0LYavQ9k9TULqYE7WV8Uja5RhScvkUXTJRRjdJP7fnfKkTRChFi8CF9hFBo llUsJ6JeYjQCq6JrlkLEZ1BPzeJCC6YpLuFYJkWSD2 Kg9aEGFpVqwoFwP5JTKxWRQ6SWelXMV9BdFxUXYqSOHnXPFoGuYyRC0YGb9BZrE9EKG8yZIeYu4QBwX8 PjQFUdDeEU2KXBc= ID Date Data Source [id number] 03/19/2021 01:32:02 PM EDT [facility] Name Value Range Interpretation Code Description Data Yany rce(s) Supporting Document(s) Progress Notes [facility] FDNWPc4dYuSKYbSn11/FJDmeDIVib7AvMSwtMDq5OXrgMPUbN1CqESS6sO5cSZR1KYlIHlUcDaMoLDC1 lbm [file] AgICAgICAgICAgICAgICAgICAgICAgICAgICAgICAg XVFbKELqFLEoFOMiIEBxIRFcYBVwGYWwPEDoQEEkGTOsLA0UOWGmUCWpJKDzNFUpFJRgTOSpXVNvAKId ICAgICAgICAgICAgICAgICAgICAgICAgICAgICAgICAgICAgICAgICAgICAgICAgICAgICAgICAgICAg VVMsKKFxMHGlKUVvVYRqGL5DVPAcIOInFFLtOVRiOF AgICAgICAgICAgICAgICAgICAgICAgICAgICAgICAgICAgICAgICAgICAgICAgICAgICAgICAgICAgIC CoKGHxTJHwCDCfRZEmVWQfFOHtBIZuDYKeRU9PSFSkTDUqVEAdFXDoDYVoYRBdCACxWIOzJRGiLCElHZ AgICAgICAgICAgICAgICAgICAgICAgICAgICAgICAg JUTgMQQtMCVlQYOdNFMzMUBcCQWeVVAcOLBqJQQgWJSmEZBwVY0WDIKxBUIcYLQvAXPaKVAxUWCsGKAx ICAgICAgICAgICAgICAgICAgICAgICAgICAgICAgICAgICAgICAgICAgICAgICAgICAgICAgICAgICAg OQDyXSFpGFRnCRLfNIEiVNQcFK5ZOKYsUHFiXXDmER AgICAgICAgICAgICAgICAgICAgICAgICAgICAgICAgICAgICAgICAgICAgICAgICAgICAgICAgICAgIC DnRIQcCEVlGUHqXQHqEQTwNEIgETTqACAiKLTrZD8USAMrCCDaWQNaBKJwUNGhKKKcTNAkFQXePIXdDQ AgICAgICAgICAgICAgICAgICAgICAgICAgICAgICAg OFSaGPGoMUXeJKJmFYUcIKWuIAZdGOAlNRWgUHCmRDTfMNBrNUWnJT4VZSLxBAUyEJVtDOQjKJWrNIYq ICAgICAgICAgICAgICAgICAgICAgICAgICAgICAgICAgICAgICAgICAgICAgICAgICAgICAgICAgICAg SOBzDDNqCSQtZDYzMXEpLPJiPXQnLX7LDPTvNVSuSS AgICAgICAgICAgICAgICAgICAgICAgICAgICAgICAgICAgICAgICAgICAgICAgICAgICAgICAgICAgIC AnMSTdTAArWOBrXYZoVDFsRHPhROLgAOTcUJJzFZYoBP9TWINaLWUyBATvQOEfCKUzHHDmCGItFERnMB AgICAgICAgICAgICAgICAgICAgICAgICAgICAgICAg QXRfVJNoFAGbXDUeHCBcRVUuUFDtLVHvUDAhNECoPIEmCIHrBKPaJYXlBJ6YTL15oAYrl4L5SRJzOB5s dyc/Ar8WYZbimgYdpEMnRF9XMiEkCM5onw3LHbMaXG1wpp2AZByKVwKwB9K1xUKbJZXoHONXZhNwT46i WZqiBt35RJjlQGAtQaTsCHi7Ry8BFiAjW0ezJRJrZp V1QLCnJvH3YGTgGaT8RACnLpMdJVFiQASmBN8SIGEeF944ciRvUS8XOs4GJeOnZH5ocf7DRAMzZYTkGf yKJlr2PNksZM3QiOHvbDU4NzUwMBQDElUoL7psn5VwEHBuARQNAQcqWP7Nc3XfwCQqUFq+Sw2OOO9qa0 FpINm4FrXdQC1jsy4BRSrENgWcB4RlpXwbKOPrw1iv HARaQJ1qkZJaZEY8NZNkxxwleTofKGFCECLydIRrrEqzDHIKKXQOWmHwuYE6KtT5NjClFpDvNTE5EbDw PP9zSYljWY0LCEF2SFjgYXCdSHEiU7wVNrBqAYcrQBYvwPnoED8YJwTyR9ZobpZrbIY0PzOkSPPNOi7+ HXdbpnXrYzrJNfI6RBHra3DwIDu1PE9JAMCwPFxlQF 9SNGHikU8yNVntGI6ZYuX7AULbWRSVIoViK34pqYPwTNx0J7SxXtQjMHLaUxzfINSvJSqmHcDcYTOvQg BdDQogID4+ID4+ABkqFK3SKVoyufCtVVWsSa3BIFGuJDSsSR4vGZAlCQUuW6S7wPupUNAFKwOaT4vtql myMY6cQKOqU751lIcxynYyDNNyOZXhYx9REXWoPPB1 GXOywOHtUVAfQAZZZZhuKB0ZkGAxFWU8qJ7tIQdlAUGnGZNcZ6vJAoJwbUiwXA16tWryufBdoPTuNQo+ Ma4ZZX1sv1JtYEo7doXkVIaoEQM4BRstFAYrCDTqUAOqACJ1UIC0YTKYIaUlFQFvSJWfVXtcBXWxLKIn wd7IWMQzHBFpSod2OMWnHUCsFNDfMZupHCWdXQC8CS C8WFHsNPPgEZ6DQrHwHEKjDZQhZGkmOABjXGTpdn5QUZVhCPGnLuD1XGXsUCHoHKUrGNetVDHyVTXeEI l8YNJuGYKyJA5ERkOcFIZxBID7SwomGOMuLLYfvp4SYNThQXIvXSIvNhEkMEYoBZDdDHjePLGjEJX7Bt M9FBZwZYIbXN3OPfMwNUSfJLb9WwuaTRKnJIUojz6J MJQaLJLiGWL9DWTyKBLiAMHzKYcoHGYhCJZ4Stk9ERZgGCJiXV2CHaZyMOVtBFy9LKPbFYTjYICoqi1N QBVmAPVyKDl7AcLvOECrWPFhUEcdOOJqZRFtSXJ2OPHtCBQeKU3OPjSnSJWzAKY1LMPsJGSsGPTazd9E KZHgNYIvGCQ7BHTuZCHuWSGsXYepKRSzMSGbDmu3UH FpZZOpGW4DDeQgVMKhXPZsZcAaQWYcVYPicg9UHNQcLZQyXiT3NPKoFPXgTDHoQVavZVWgGWGiZoOvVI TtVMDrOO5MPtUpWOQzOQY0CZpzNLXaFHMvlx6SLRUeUCTjJvm0CZYbZLRrAGZrNNwlZHLbZUN0RJf0TS NpUREzEN3HOiMjOACkRJYlWvMcWWSxVZVsfh3IVNOr NHIuIEWxZyVmQKClAHDxPMorCCBjLGE7FEI2TWRqXUUoVW8SBwNvWFChNuFnTfUaGWFiUMVguz2ZGBXy EMWuXWA3WHTcLEDoJUMdTFfsBILgWIFzPBJqWIKyEKIfOO1JXsWsYNOgVnKnHJIbCNGzPKAoei2FKKHf HWEwIGF3OBGdDTZrVWWrTQgkHSFcCFLuROReXYOmWV QcQL2HJvEyLCUcIdPnUcJyYMHaKYTour9VEBGwYUDtDsOqGVYvRRSjSAJkXSmcKVFsFVO4PXW6NUTkRH RkYA4YGcYtQRZmYvRcQKGmNLGkLVGhxc6LEQSaRXElZwM6HMPrCTByUPBfJAvzHNRxYAO9DUd2CTTrWQ WfNE3GFhRrKEYlMrR7YQzsUYZvODNfzl2EDASuYSPl PlEyVHRyQVAtOHXaFDgpVSNgJHE6Vdn3YZPkHULbQR8ZAqExIVBhGpm0ARIyHIIrEVBiym2CIGYxHXAs JNuvUGWgJWUiSTFdTVi8ffKnhYGlWFg9EG5NM0NsdsXlEAAAGh5Aa199OTZ7JRZfMw2NB8yxTg9zJQIm DAAWXw0CWWu2VVNsSjLaIWH4DWt0OTTcQSt0SQFcTX EwODhiNjVkMDE+WWa0EqCzCuQrZaP9UYn9RLMlPlflNZOcFXP6ZAW4VMZqDW4xKVLSVl1+DQpzdGFydH hcSIEJNsF8REM7PUdbKCLZIx6R ID Date Data Source [id number] 04/15/2021 09:32:00 AM EDT [facility] [address] [place] [address] [facility] CLIA# [id number] Surgical Pathology ReportPATIENT: SHAHEEN DAY CASE NUMBER:[id number] #: [id number] Date Collected:03/19/2021ccount #: [id number] Date Received:03/19/2021OB: 1950 Age: 70 y.o. Date Reported:03/20/2021ex: MLocation: [id number] Attending Physician:JAD COTA ADDENDUMClinical Information: R/O CANCERSpecimen: RECTAL SIGMOID COLON MASS, BIOPSIES FINAL DIAGNOSISRECTAL SIGMOID COLON MASS, BIOPSIES:INVASIVE MODERATELY DIFFERENTIATED ADENOCARCINOMA.LDM/GFCommentFindings were reported to Dr. Jad Cota on 03/20/2021. This case has been subjected to intradepartmental QA.LDM/gfGrossReceived in formalin labeled rectosigmoid mass biopsies rule out cancer and consists of eleven wilcox to red irregular soft tissue fragmentsranging from 0.1 to 0.5 cm in greatest dimension which are submitted in toto intwo cassettes. SAI/kb ADDENDUM:04/15/2021n addendum was issued to include the FISH Analysis NTRK 1, 2, 3 report from [facility] (Accession/Case No: [id number]).LDM/gf 04/12/2021n addendum is issued to include the Molecular Genetics MSI by PCR, Molecular Genetics KRAS Mutation Analysis, Molecular Genetics NRAS Mutation Analysis and Histology Analysis HER2 Colorectal reports from [facility] (Accession/Case No: [id number], [id number], [id number], [id number]).LDM/kb 04/11/2021n addendum is issued to include the Molecular Genetics BRAF Mutation Analysis report from [facility] (Accession/Case No: [id number]).LDM/kb04/11/2021n addendum was issued to include the Mismatch Repair (MMR) IHC Panel report from [facility] (Accession/Case No: [id number]).LDM/gf Electronically SignedBy:ICD: K51.90 Betty Owens, MDCPT: [id number] PathologistI ATTEST THAT THE ABOVE DIAGNOSIS IS BASED UPON MY PERSONAL MICROSCOPIC EXAMINATION OF THE SLIDES (AND/OR OTHER MATERIAL), AND THAT I HAVE REVIEWED AND APPROVED THIS REPORT.PERFORMED AT: [facility] [address] [place], [place] [address]THE TECHNICAL COMPONENT WAS PERFORMED AT [facility], [address] [place] [address].MARINE SUPERINTENDENT: BETTY OWENS M.D. IA# [id number].SHAHEEN DAY Page 1 of 14HOUSE, SHAHEEN [id number], SHAHEEN Page 2 of 14HOUSE, SHAHEEN [id number], SHAHEEN Page 3 of 14HOUSE, SHAHEEN [id number], SHAHEEN Page 4 of 14HOUSE, SHAHEEN [id number], SHAHEEN Page 5 of 14HOUSE, SHAHEEN [id number], SHAHEEN Page 6 of 14HOUSE, SHAHEEN SL21- 35131ZDENL, SHAHEEN Page 7 of 14HOUSE, SHAHEEN [id number], SHAHEEN Page 8 of 14HOUSE, SHAHEEN [id number], SHAHEEN Page 9 of 14HOUSE, SHAHEEN [id number], SHAHEEN Page 10 of 14HOUSE, SHAHEEN [id number], SHAHEEN Page 11 of 14HOUSE, SHAHEEN [id number], SHAHEEN Page 12 of 14HOUSE, SHAHEEN [id number], MICHAEL Page 13 of 14SHAHEEN DAY21-04616SHAHEEN DAY Page 14 of 14 Name Value Range Interpretation Code Description Data Yany rce(s) Supporting Document(s) ID Date Data Source [id number] 03/19/2021 12:24:24 PM EDT [facility] Name Value Range Interpretation Code Description Data Yany rce(s) Supporting Document(s) Progress Notes [facility] NUKBAq3nAxLETaTv56/EVIlgIXSlz9FqYFbpDMj5TIqtJGFlF8FvMQB9oQ1mTYO9KRbTRkBxIuBhHME9 lbm [file] M4Lhy8RSe+UP1tDDl+Xy5Vb5KrfhQ0tlOsHQyxWMC4SY8FAQMMR0KVDc== ID Date Data Source [id number] 03/19/2021 12:11:13 PM EDT [facility] Name Value Range Interpretation Code Description Data Yany rce(s) Supporting Document(s) Progress Notes [facility] TMBHXk1zUcPCErZs01/UVAqtSOTqe5PqTEncFTp3CAwdQLHdQ3DxDCP9kP8bGUZ9WCbRFaWgSyXtTLL8 lbm [file] IgM9Rh0aBYZZEs9+QLnswJOsmYnaJPFIRbS6MAf1XTyiALLJWi1T ID Date Data Source [id number] 03/19/2021 11:20:49 AM EDT [facility] Name Value Range Interpretation Code Description Data Yany rce(s) Supporting Document(s) Anesthesia Preprocedure Evaluation [facility] FPAYOa1bLdKBIiKr28/VEEmaASVzx7AeZJxhEIx7HRozLYEqN6KyIIS2bC0xPPQ9PTmWAsPzBlTgTIW0 lbm [file] DiDRX2GGY3VMNuUHabD4UoTcOqLSPbPQ7lHAXRWf3+HAgczSUmsKijZMZGVpB8WbUkUJidDUKPJf5Y ID Date Data Source [id number] 03/19/2021 09:50:01 AM EDT [facility] Name Value Range Interpretation Code Description Data Yany rce(s) Supporting Document(s) Care Plan [facility] XPSNQk1sMyJNImQo71/RMHelNRDdm5NdJOzbODd0ZOqnKZLeR3ZhFLH1uT6kRVB2XDdTWoGeVgGlSSK0 lbm [file] AgICAgICAgICAgICAgICAgICAgICAgICAgICAgICAgICAgICAgICAgICAgICAgICAgICAgICAgICAgIC IyJHThTRKlGKPzBJQlBKMrXEOnAQTuLGFbBX9BSQVxJZXhZSAwTHApPEZaXJTwFGMiMRVoKSAsJEBaYE AgICAgICAgICAgICAgICAgICAgICAgICAgICAgICAg JBJqDFOeBGJbVESpUCFaDIVnZSFfKNXjTSMrNUAlNMEvQJRjEU4XROSdSIWoQJEpPAAaOVCmDMWqDEAr ICAgICAgICAgICAgICAgICAgICAgICAgICAgICAgICAgICAgICAgICAgICAgICAgICAgICAgICAgICAg NFTxXZGtBHZnUMOtLLIeFLImOW9AJJGsDILgBLQmZT AgICAgICAgICAgICAgICAgICAgICAgICAgICAgICAgICAgICAgICAgICAgICAgICAgICAgICAgICAgIC YkJBFcYNTzEEXcMNPiDLInYPMfFYVhDQVrTCQyUY8FAFQfMSJlGPGaGNDfHWAaQTIhTUWcMFFlUEAtNY AgICAgICAgICAgICAgICAgICAgICAgICAgICAgICAg CLYpHJPhKNZuYMNfBJKaKXYjHFDwVKYpHWTxISVtXYHyKLIiGZGdHW3BGVAmAQNnOYOpQWMcLEGkWLVy ICAgICAgICAgICAgICAgICAgICAgICAgICAgICAgICAgICAgICAgICAgICAgICAgICAgICAgICAgICAg HPJhJPPaIWQdSEQyHDKlNURfJIKnQC7KGEQfTMMtGY AgICAgICAgICAgICAgICAgICAgICAgICAgICAgICAgICAgICAgICAgICAgICAgICAgICAgICAgICAgIC ZcASLkREEmAGVdZAYiLAMrELNdZTOsOIRlVEPqYJOqBY7EDIVtPQNpVEXmTLFcEOJpCPDuMWIqJNShVW AgICAgICAgICAgICAgICAgICAgICAgICAgICAgICAg YLLbXHEdRWUyYBAxCIDnJTUnTCSkZDNnWUGeDMOcKAMjMAOlJNWjZTFfXL2DGWJqRHJeQKNwSPPiQPIi ICAgICAgICAgICAgICAgICAgICAgICAgICAgICAgICAgICAgICAgICAgICAgICAgICAgICAgICAgICAg TASrDNByNSQkPUOiGIPrNIVtDWErQNLtPV3QRIHxET AgICAgICAgICAgICAgICAgICAgICAgICAgICAgICAgICAgICAgICAgICAgICAgICAgICAgICAgICAgIC PiKXXyYGTnHTSqSTUzAKJnXQIkJQEfIUDjGRAfQOTjPTXyHV4XWT07xIPbp6M5QTMiZL7tmzk/Pg0KDQ lyemUvjOUbCH5OZaAzNL5qmz4PJaPoOE5qpd5JEXtL DyXwN4B3eVRpJYLzYFAWFdBtW51rMIruCp88PIuhQYNqFkTlJDn5Ma3OHhQzW8yrGTUhBtR7NYLmEkN2 FPCjQbReMAstAE8Qt5VavUJnYCu+Kr2ZWK0is9OoMHirZDQdVE2bxe8FYYdTGeDqQ5EefhZ4UXH2HXZo Lz0UJGAyDBBquIPhJyXnIYXMLqVlA2ZjlT03CXTUPo 4+NRtifvOySuiLMdY1MINvh0MfMDp0WW4SYOZmGDx4sASyK8RbHVPYpQKsMES8EEGwzO0lSAZnqj7hNv pkBn4qOOLrYJ4wFY7fACNlIED8VrU9UMOKKR3GXHXjZJIhiGHwTIKzILQSKB3JHCbgCEO5MkzsstVpmJ YdNXpfND6AYGKxdsWjMkGrRMOPCNz+Oh5OTU3hz6Gs NZycBhLbMI2uac2KAVfYLyLeQ6B6hMFuG5A9NLdjIy8DTJBwODLdErCdAPPBQFgaHS2CTY1iabP3AH6Q qXKlEXCvCQGpuCAbLRa2O77izBItSPofYC2GOGK+Frantz+Lg9OAHAfLEVwCGJjLzAqLQQPXwMfX7XhG6QZ j7HpH4YhFK24uQriinMaDOrdRE8VJD9eXLQbSUDWUK 4BiOJyuE1fyoToEOJiPTFPUqHxN28hvUIoFKFnUPS8LAXsZt2YHXZsE7QanfFrgPwxeuTeJUGrYNVPUU 2KKCwirwRlgDIugYuiSC96lEciDZ9PVe1HFzLdSP0zcx7QiFBqRc1PEDHzDC2YPTLlLXNyZYWjGGF2JG RnNxHxKRpwQFHbTLVbNEO9SFWlZFPcXX1KNfIbMVWg LEZaLYRvFBQqNJBioj5PJLCgYKT5IQT8LIGoYALpYKSoFVegSNLxSHScJGI3UPHmOIRyBW3ONeLvYYCr CSB4KMGwPSRmSKFqnv0RPXUoTMAbCqx2DkUkVTSoUTXwINhxUMBzMDA8IRXrZRVwSWBtBU6DQoZyRAHb MNOwIPUmLAVzQZNseu3IGFEgNUYeZuP6HtRdKTYoEC TnJFgmYYFnVFB9IEygCEXmAQKlNH7EHgXyFBRfLYv7BWiwSIDaNSFphy1BPFTuIXNkEDHwPTMcNIFoID MzCHpsYLOyUYV9QDP5TWNvKRRgOV9DLhRwECYaNSl9QHxqOBVoRXQnzl1RKIGpVVXcSEQ4SREsHENjWS WlCFzuEWQmMPMbMfT0DJSxQCZrDA4ULkHyIIGlDpU3 OzRgKSYcNAPnwb2TMUHxNYEhAbFvAlDgJGZsOCHlCVvlGTKgZWGrYvC3SIMqXYViMR5BStIbHFKxPfKa ZJQsBVFpQUMjbu7ENWLjDFUmBwV2XVHfMGHrQUXdCStvKICzPAMeAQu8WNUzWAIdIF5TCkXnAOByBtX6 PgprSAFxLHZktr3OXGJqFTPaCYshOzQfSCMwNRXdZB wgAZMoEMO1OUw8URTwIQGdXS1CJlVhPNRnUKL3IpZbNXYmFVTbbu4UGUHhMMN2LVC0XLUzREQzYOHvNF mlDQKpMFN4CrIiUZJcQJLwDZ1RCeLtVLBlKVY8VKFdKNJnFNQagq4KSIKrCTD5QSD8CPXlASGaOVMmUL tyQXGmBFL9CDVnWBHaFYGpOD5WTqUxXRCxAUMsJVmg JDFfSZYkca1UQCRnZRW4GiK5DTHqPQIiDKMvRPlxHQCtULK6IHH5IDXrPTDvHF7GIaHtNJFcRHeuZnek JSQvDTBnoh1BUNRjEPQ1YEA3XQPtVAWrFCJuAWugQWBmXFM6JKjeEXKlXYPyHO8EWmGkRAzmLMGNEsm2 IXzzL4h2FLWrES9LS7Ghi1OhOnyuBBGACMzdIQ1lnv BhKXAdXo4JA6lHPfs0CFn7TaNrN8WbP9ElPDV9DUD8CxIiGCQ4OwCiEUC2AV7lNRL8ZtL2N5AgCnXbAy ZoUylkYCOdNeV7BNduCJJnHbkeFuKdIO1RWq5JShH3VPV9pVOgFu2RFXm3HrJYMoTmHD6YEAl= ID Date Data Source [id number] 03/19/2021 04:50:07 AM EDT [facility] Name Value Range Interpretation Code Description Data Yany rce(s) Supporting Document(s) Nursing Note [facility] EHOUDa6iVuWUGjEx31/IYZxqLQZsd4XpMAtfGLf7DUolHKSrQ9CwCBG1uL7fXIP3MRlCCyTfEbGiHQN9 lbm [file] /jose daniel/vToDHRsLC6rxmjMoRMtj4sVaFTW8SwnZoN3N3Upx1kGOy5ksf9Gnh3Iugpu5f02j4PqFHHD5KjQ [file] ID Date Data Source [id number] 03/19/2021 05:35:00 AM EDT [facility] Name Value Range Interpretation Code Description Data Yany rce(s) Supporting Document(s) Phenytoin 8.8 ug/ml 10.0-20.0 Below low normal [facility] The above 1 analytes were performed by [facility] [id number] [facility], ,[place] [address] ID Date Data Source [id number] 03/19/2021 05:35:00 AM EDT [facility] Name Value Range Interpretation Code Description Data Yany rce(s) Supporting Document(s) Digoxin 0.80 ng/ml 0.80-2.00 Normal (applies to non-numeric resul ts) [facility] The above 1 analytes were performed by [facility] [id number] [facility], ,[place] [address] ID Date Data Source [id number] 03/19/2021 05:35:00 AM EDT [facility] Name Value Range Interpretation Code Description Data Yany rce(s) Supporting Document(s) Phenobarbital 30.3 ug/ml 15.0-40.0 Normal (applies to non-numeric re sults) [facility] The above 1 analytes were performed by [facility] [id number] [facility], ,[place] [address] ID Date Data Source [id number] 03/19/2021 01:20:53 AM EDT [facility] Name Value Range Interpretation Code Description Data Yany rce(s) Supporting Document(s) Care Plan [facility] XFDYMe0xUgHAUtQx97/MLQbiNKXkw2SnVFbiBBu8YKalZPRxP7NrVPM2rC0pOWA6NLkHFmXqOuTyUNM7 lbm [file] ZUK4STWdZv9yLSFAUy3+JNsqqVMnsDgbNZVVKoN1VAljCShjIFFABb7A ID Date Data Source [id number] 03/18/2021 06:23:12 PM EDT [facility] Name Value Range Interpretation Code Description Data Yany rce(s) Supporting Document(s) Nursing Note [facility] CLRJEs6yNdCEOvBg51/ZNZvoWEBup8JmDKulKNy8NKzvQTKfN3PiPZY5vF7kQHG3INaNZsVtPdLpDUH4 lbm [file] ICAgICAgICAgICAgICAgICAgICAgICAgICAgICAgIC DpTJLwEZFpBLVxUVSfUWUhOINyETJgED8TEKLhXASeSSBcZOWaCOZgJCNwSOTzNQNqJHZwGQGhJUUuJJ AgICAgICAgICAgICAgICAgICAgICAgICAgICAgICAgICAgICAgICAgICAgICAgICAgICAgICAgICAgIC DbWIJgGU1AGNFiFRWvPSWmMHYbZSOyRQJtFIErSTQt ICAgICAgICAgICAgICAgICAgICAgICAgICAgICAgICAgICAgICAgICAgICAgICAgICAgICAgICAgICAg GBHsJVBvEEKwCJFaGORdFB2GOZJsGJPaQQVaPXIcNNEdXWKeMAUnNFIrALWwNBQrSSKrTOEiCNUcSGPv ICAgICAgICAgICAgICAgICAgICAgICAgICAgICAgIC ZlGUOcPTWtFRNoGFHjYBWzZPTeBJYpWMGnUZ6WUBFjCCDnYBCmLTSyWGNfCJXmFUTrRQDqGVOyEYVkOX AgICAgICAgICAgICAgICAgICAgICAgICAgICAgICAgICAgICAgICAgICAgICAgICAgICAgICAgICAgIC HnHCVtVGAfVB3NAWUoIRVoCZLcLHBxXFCiACLdYGUe ICAgICAgICAgICAgICAgICAgICAgICAgICAgICAgICAgICAgICAgICAgICAgICAgICAgICAgICAgICAg KEFpMJXdUTFjIQJjPCMiPBBgVJ3CNXVwCCPrYCXdHYDfXASbLZTgPTOdVSKrCQYvNMTyAZBfLSDdKCAv ICAgICAgICAgICAgICAgICAgICAgICAgICAgICAgIC EgHKPjDFEtHCBsKJGdBNGeCXBpBWHxCHNzKDZfBL2NPZSnYPEaBGRgADTaOPFiQUGjXZTbVZWiLMLeGB AgICAgICAgICAgICAgICAgICAgICAgICAgICAgICAgICAgICAgICAgICAgICAgICAgICAgICAgICAgIC MoMPCgHPKfGVCjES7ICHKdUPTrKFKiKONlRSRnPRFx ICAgICAgICAgICAgICAgICAgICAgICAgICAgICAgICAgICAgICAgICAgICAgICAgICAgICAgICAgICAg DIIkCQBvFVMnXJBtPXMsIVUnMLBfJM4JEGUnTVGoCGItBRJpGMBxJXFwBHKsLJPeGOArMRGzCJWaCFVh ICAgICAgICAgICAgICAgICAgICAgICAgICAgICAgIC RxXFWaWFWtEHMsWWTbCAJwVOBbPMYbYKImVQGcKBPkWB8OUD58bKNdq3E8VVMoGN0ifsz/Vg8CPLqujf PogEYiEK3URoZzIY0sse7DBnBrAV5guu0WKNeRRlYxT9R7rEUhKCWvJWVWDiPjJ63iWNulCj19PAmfAM KoHkBeAFg3Dx2ACuLwO0dyYENtDxE5HEYaPyPiMZjm EA7Nf9MjiUIwMUa+Zn4XVU3yb4EyROjiPrGhUI3mau9CBLdISjRwJ7NcqzW0TJLgSMSrYs9KUQSdMXXy hVPoHsGjZAWRXsGsM8EdcU91LRHIBd1+NQwddsNcIqtSBtXfBUQir4AaBEb8FE4EOVInIXu6wVAuOuPc o4bhMsZRx4HiDML2TEKkxA6nTZGtxl8jNudoRy2xXL QjMH4zSx6hRKBgSLQ0HwMlPNJMCU1XDQIvXMGktHIqIVObNESXQN0TFDzqADB4UffmjbHfdGNeLKprTH 9QYXJlbnQgMjIgMCBSDQo+Hw5KQJ9xy6HxBBdrMXInBV5ysm7ZUAdWAuPnY6Q3oNEaS6O2DTlfFu2PPK StWVFuIwFhXXGNFBbxVB9NUF8swjO2ZU1UpGEkFSCl XNGbnFGbXNx5K40eqFOhRLmyIU8IXUY+Frantz+Oo2XEYBrXHLzHRAgHrIrPXMBRkZuT1AoR4RDc5YxK2Fo HV96sEtuzdAoLSuxAG5LXE6cNBDcSVIHRK1TrNOrbR9lsfAtKwCgYMQFOfEtV55giOAcSGSiTDAqKCNe Hw8ZPQAtJ9TrzjIhhXqkhzQlLQJqJHJPOI2AGEcflg DogYBehOetFL01yGxbRI3ALe8MToHzQG3cjh7MtRAuZd5RDTCxHW4CICQqSDAaRGNoVXW1EIAjOeAdXU feKTRyDJZlFHQ4LWSwLBRwFU7LDqGyFZJiOOe5ZASuTJZiPZWmub6CRDMwAAEmXTHnEFUnPWRyDIMdCJ msNJAwYIMlZNS6IJLgILPbGE3YYuGzRSCuARZnHkhk PVEhVSMhlm1PVPJwIZTrYWQcALDcISCjSXEoKJbjZVDuJLPcDMa6BYFoPFDjEX1OMaGfGYPqDDH1CKGj FZOtDLJrcm6FCLOgBQRrJwe8NTWcPHIrMYIcBNlfLZCbPEKjNQW9HCIrFCNpLM8ZMlUpYBKwQVIkQsMb PSGeYMPoyi5WLBJfYCEzGRCgKpHyNTQvHJPpLInpWN WoFYJ7UYLkYPHuKXAyYL5ZJyXuJMVoSQV8EoqjHXMuBFLupn5USIPxBEIqYaI9PsQeZZHoWUIxWNlxFJ GrQUY2TcJ7GCCdNVXeAM7ATcXhNJBqJQb2RwAgYSJmOWLoct0RHLDrYIFmTPLfMVLfYQLlKKSkMJwaSH AaMNB6KfXdRLWfKSRpXB5EQsTjORZiQXn5KyAgUAWg JHWyar0CUOXbYFBuNSI3DOJcSGGvEMIfUOwoUJVzWJUbSqQ5CJRiHZYkDR7TXzBlERJwLgK9YLfqDJAe YDJjrj0CYGUtENIhWUv1XpPpLQImFDPjHAa1hgIsjCJkMIf4VU3VR6FzvhYgEhVZHg6Er777NZL8QESh Jl8OK7kaWi4eZORzZQMYNj1ZUSq2SMe4WWJfHnVbHr MvQqdqWVVfIvp3O2JaMXBzXaG1DgV+TQysQSo5H1O5BjJ1IRWkQRHpVIOoAYs5IwE6I0YgFpSoGN4oXG ANCj4+XWntfLLflHczMXATXkOcYZs0HBitKQMMCv8Y ID Date Data Source [id number] 03/18/2021 03:59:49 PM EDT [facility] Name Value Range Interpretation Code Description Data Yany rce(s) Supporting Document(s) Progress Notes [facility] UFFDEc8jRoCVGfPk65/GEOubCFOvu7NrVOnbGYj2BOzbWHWnG1NzFOX1tG2nQUX5LLkWIvHuNqSuWJB5 lbm [file] T0YNCg== ID Date Data Source [id number] 03/18/2021 03:36:32 PM EDT [facility] Name Value Range Interpretation Code Description Data Yany rce(s) Supporting Document(s) Progress Notes [facility] AGPHRq6tUdVQFhHl51/TIIisYPQrm5IbPJfuOMk5QAcmSARdR7WkLSK6eT0gSIA4JKbYWqCoSrNeTAH1 lbm MkNilAStRrCXVxQbbRBbIpFPnwUikviMFiPV5NzJZ8LHKlW83hGEOhBRJjQ4VvGSGdIVJ+St0SQPCwsV PyGE3SShoK2Ruhi4d8XR9lcB/KnkPrBl5MRqRK6ZO8KKG7fhR6nq2bXN5Me7igy2B//OkFHk0HKUHkiB CusZpKrk7e1wK6QAizrC/6gxqdWNov3t/oRunMxp0L jz+Hhyxr3qN+DnwOgoYVPV4rxCyPsY7LgLKcr+xfTvkUJoTEh1wOy8IwgUTQURDQAqSeHeBfXqi1azE/ 6IP1zxDpA3bxFaooBL9+7cFnG5cz9zhppzI/coBxZLBJQ1KseB0hyWNjP25mZPtSNubMF2lVzTIbVT48 8UKSmqi8yHNlF1NW7b8RMHkhQdodl+6X14TZHh8X3Q NDYaOwNPkRqSlwcorfynsIbpIVUUI6YP663HNaD0YkGOzqEEpQHByxaDBNuAEPX3ZxqgLzhi6E7Vv/mu /XcqxtOUrmRDGj+/5kZALE9I6uvi/Tn3sji5XxQINN7XDmlgPdPWUvKP4XOdW1/RQoBvkBe25B3sMS12 xnTeeZ6MbluvMC6vKUvBKb3VBby3Mdmo78BTRLuw/Q vesDcNk3fwmtuwLyq7J8I//5L5K/P5x+osGES0Sbq3lM8j30F4vxMc8genJUFHNhXhKV3K1J1Ryym2Z4 9ydCPBBJ8e4aMD3rQ0uWQVUEISTm2iqU5yE+4f+m+mv4MDed6c4hx4E95fYzJpJ65NCuoCbnWcv/W7+m /1auy9iD7z0JmFggExf3y/j1sU1IicYqGLKjdUczMt 9rtM16/ChnpMpqjIYCd5JC0gKsrohaYoK9oLUt+/SA4SomMALJJ5h46LHkmVI1LCbr4vjaZQu8iNnbRF UZfR1lqj43wHXIJRQ3374rNCmfUhVYYQwatI3FxFMFaB2iTyD0pQ7FWxL2Okr4BDfic2WDJb8reR3ukS vMncXg2bLbfaYwnNYsJB1MSA7yPGP73c1Wz/c3kYWL jMTzqegXppQS2jQ/JjEB2NButcXP2TgM0nVpVvOBcPl2BYzxBFpWWjkqrLRJ6FKmgvSTA5Vun68ok/Manager Of Finance [file] 0QGT27Iu/jose daniel/wKiPHSbTV7kqnjXzTCyk5lWjKQY8M [file] GzYsBuMJOfPdBG3BOTr= ID Date Data Source [id number] 03/18/2021 02:07:43 PM EDT [facility] Name Value Range Interpretation Code Description Data Yany rce(s) Supporting Document(s) Progress Notes [facility] RBZFTs7kGwXHThOx07/LYOelNCZle4VkQMmnVPe8CEpwACUjE9OeQFT8yY8jYYB0KDcYSfGcHqZlMTN8 lbm [file] AgICAgICAgICAgICAgICAgICAgICAgICAgICAgICAgICAgICAgICAgICAgICAgICAgICAgICAgICAgDQ ogICAgICAgICAgICAgICAgICAgICAgICAgICAgICAg ICAgICAgICAgICAgICAgICAgICAgICAgICAgICAgICAgICAgICAgICAgICAgICAgICAgICAgICAgICAg ICAgICAgICAgDQogICAgICAgICAgICAgICAgICAgICAgICAgICAgICAgICAgICAgICAgICAgICAgICAg ICAgICAgICAgICAgICAgICAgICAgICAgICAgICAgIC AgICAgICAgICAgICAgICAgICAgDQogICAgICAgICAgICAgICAgICAgICAgICAgICAgICAgICAgICAgIC AgICAgICAgICAgICAgICAgICAgICAgICAgICAgICAgICAgICAgICAgICAgICAgICAgICAgICAgICAgIC AgDQogICAgICAgICAgICAgICAgICAgICAgICAgICAg ICAgICAgICAgICAgICAgICAgICAgICAgICAgICAgICAgICAgICAgICAgICAgICAgICAgICAgICAgICAg ICAgICAgICAgICAgDQogICAgICAgICAgICAgICAgICAgICAgICAgICAgICAgICAgICAgICAgICAgICAg ICAgICAgICAgICAgICAgICAgICAgICAgICAgICAgIC AgICAgICAgICAgICAgICAgICAgICAgDQogICAgICAgICAgICAgICAgICAgICAgICAgICAgICAgICAgIC AgICAgICAgICAgICAgICAgICAgICAgICAgICAgICAgICAgICAgICAgICAgICAgICAgICAgICAgICAgIC AgICAgDQogICAgICAgICAgICAgICAgICAgICAgICAg ICAgICAgICAgICAgICAgICAgICAgICAgICAgICAgICAgICAgICAgICAgICAgICAgICAgICAgICAgICAg ICAgICAgICAgICAgICAgDQogICAgICAgICAgICAgICAgICAgICAgICAgICAgICAgICAgICAgICAgICAg ICAgICAgICAgICAgICAgICAgICAgICAgICAgICAgIC AgICAgICAgICAgICAgICAgICAgICAgICAgDQogICAgICAgICAgICAgICAgICAgICAgICAgICAgICAgIC AgICAgICAgICAgICAgICAgICAgICAgICAgICAgICAgICAgICAgICAgICAgICAgICAgICAgICAgICAgIC PsWRFhGKUqLSr9V7fmJRIhMBEeNF3pTEj8Xh0+DQoN WoSdRHE4srMlkN4TBF4bb6UlCRmkZXHrg7WsAHi8ET3VWVUvVSbvHF0YUKvjpz1XHSZtOIYelVAYt9ul CsIsSFN0YXDfXekzIY1QBDExN2kxkaSvUMFaQOSVIW5SXwXsV5YnnO66FRLNBp9+DQplbmRvYmoNCjIy SOJxt4OhMRc1RY2JQMXmGfyys9EkAgOaNESUPKycRM 3YAEI9HSGmAZFsZp2ETJHfA700nyMyNM3LJb8ONlHlPM0dxc2AHrFlLZRtYmoSKma1FTpeRW2VpMEgEJ pNvl6uqsUtmzCCy4FzomPanOISaEHddAGcnNNsOgAwR2NdghrdP0DbEHYePR3bNp6aQDMoBZXsYzG2BV PAOE9MYCOgUTJhlWRfIOGnSUTPVP4DMJmnVCK5Vosc uvGdgLGlIUbcVW1SMERcngIuHhAeQIQZDHy+Dq5XJJ9wx6VpSHzsNXNaNE5eub8XHMkTHkEyF6S7hWNt U2S4WDjiFq1IUQJdPSGtDzPlPJUSXEkeMY0OHM9oxgT7CG1FhYHfLBRiUICgdVSqQOl0F70viOHjBIao RB4JDRI+Frantz+Rv0FJNDwGPAyNBHjMjVaCEWOCyGbB8 VxR1GBk3FqX6LbYQ81jBfoqiNtKQgeON2GRR0bDQNeFXVUAS5MfBJlsK9yvfGvJdBoZBVZZnHrU46ydA VqQLPuEEPaIGUaBk9YCGUcV8PescTtbYpmpuJyHUBlQYGGDH7TCHebuuDzvRPleRugHQ32iEuxZC6QSp 8ERsAbPP7bgb6ZmFObLt9RLGAjBZ9EUWRpFYWsBIGr ENJ9KJCgKgLjCPdmOCTpMTBiZZO5JANrWFHpQT0ERmTaLRTuAXn1QEAhEWFoGTJudq7ZFLOyRZHeBVAz GBEdTLTpLCCpGOjrEHFiHCUbUCV6INVtONTsQO5IIgKxWPNrGRD3DPUlCKTbVYTkxr0ZOFLmABFiSQHf TyVfJFLqXOOjWUjvVDRnGJMvBGf9VCFsIFGmTY3IMw KsMNSqDJY3CeRlTKXmNOKpmk0UYISdCHGuJsn0TCWcUSYxSMEmAIzaXPWsBEQsYCX2VUHeAYXjIU5ZDh JhFVDjINRpUDDrHGMyIHTvnb3HOJVqPHIxJDZ1QEUiRDOhJWTsMHpzXVOsMKR5ZcM8GQIoOOBnTC7HOd DaZXTySFZ5VxSnCGNqYCRrrh5PLPOgAHLwNiU0VpCm QTZyWXRrCFgmRIQoJHF2YNNdBEVpAFFwWO7SXpWtJJEnIDk5KNhoFRGpHSEmhy5UNIGaOYPwJWUzHqSa CDEbXEZfEAvbBQJrVTY9FdqbIXGdLMQgOF2RXpXgMPIuRSi8AropPYOhUPTdsh6GDLZoXBLnBRX4ZBCu AXKfWOPvCQqwDPMoKFVqYjYvTHAkEZPtXD2JCzLuUR VoNtW6YWEgJHSqTTQuqp3DDSPpFNGbXDk8OMKwISGnTINaZJz9pbNwmOSqJUw0YI3TQ8ZsaaXnPhRRWq 9Vl361VPS6RLGcSb2AF1vsOo6uKPXdCSGQGz2GJMq6GQJbKfY5RYWfFZAmZBLiHZMnHSEyNVr9AoM9Af MxMjU+LOhtEVOfBlAyGIVsUVWqWnF6LpIaFaK3CHD7 Lpa2FkAkCW7uTGMDKq7+AGbswMEswLlbOJGFUcKnVGr6YMglQPBJKg7X ID Date Data Source [id number] 04/20/2021 08:30:00 AM EDT [facility] See separate report. Results have been faxed to the ordering providerand any CC'd providers. A scanned copy of the report is [facility] Name Value Range Interpretation Code Description Data Yany rce(s) Supporting Document(s) TEST NAME standard l/l panel(24 markers) [facility] The above 2 analytes were performed by N [facility] [place], [place] [id number] ID Date Data Source [id number] 03/18/2021 11:43:52 AM EDT [facility] Name Value Range Interpretation Code Description Data Yany rce(s) Supporting Document(s) Nursing Note [facility] GBBLMh0qAtVTUhMz52/BOJxdYGJgi6OlKDjjXHc0SVseLVMhK2AxXBO6uG0zDIT9INmQLuRvBxTkYFG9 lbm [file] JmUhSWa74rhqlpIDTtCtuE4OQN98Th/jose daniel/iRxOTKrTK6uymiLaIVox4uLuDUF0PkoRqQ5A2Aeo8jFVd [file] DQogICAgICAgICAgICAgICAgICAgICAgICAgICAgICAgICAgICAgICAgICAgICAgICAgICAgICAgICAg ICAgICAgICAgICAgICAgICAgICAgICAgICAgICAgICAgICAgICAgICAgDQogICAgICAgICAgICAgICAg ICAgICAgICAgICAgICAgICAgICAgICAgICAgICAgIC AgICAgICAgICAgICAgICAgICAgICAgICAgICAgICAgICAgICAgICAgICAgICAgICAgICAgDQogICAgIC AgICAgICAgICAgICAgICAgICAgICAgICAgICAgICAgICAgICAgICAgICAgICAgICAgICAgICAgICAgIC AgICAgICAgICAgICAgICAgICAgICAgICAgICAgICAg ICAgDQogICAgICAgICAgICAgICAgICAgICAgICAgICAgICAgICAgICAgICAgICAgICAgICAgICAgICAg ICAgICAgICAgICAgICAgICAgICAgICAgICAgICAgICAgICAgICAgICAgICAgDQogICAgICAgICAgICAg ICAgICAgICAgICAgICAgICAgICAgICAgICAgICAgIC AgICAgICAgICAgICAgICAgICAgICAgICAgICAgICAgICAgICAgICAgICAgICAgICAgICAgICAgDQogIC AgICAgICAgICAgICAgICAgICAgICAgICAgICAgICAgICAgICAgICAgICAgICAgICAgICAgICAgICAgIC AgICAgICAgICAgICAgICAgICAgICAgICAgICAgICAg ICAgICAgDQogICAgICAgICAgICAgICAgICAgICAgICAgICAgICAgICAgICAgICAgICAgICAgICAgICAg ICAgICAgICAgICAgICAgICAgICAgICAgICAgICAgICAgICAgICAgICAgICAgICAgDQogICAgICAgICAg ICAgICAgICAgICAgICAgICAgICAgICAgICAgICAgIC AgICAgICAgICAgICAgICAgICAgICAgICAgICAgICAgICAgICAgICAgICAgICAgICAgICAgICAgICAgDQ ogICAgICAgICAgICAgICAgICAgICAgICAgICAgICAgICAgICAgICAgICAgICAgICAgICAgICAgICAgIC AgICAgICAgICAgICAgICAgICAgICAgICAgICAgICAg ICAgICAgICAgDQogICAgICAgICAgICAgICAgICAgICAgICAgICAgICAgICAgICAgICAgICAgICAgICAg MBWxCVTxNIFcCGOaYUYhQZUlDFBiDHMzWIKbYABtPNAoWHTzPFLbDZVdVTVtNJKlZXXnUQn6Z5lgBDEz FRYwRS0mIOk4Mg8+SRaXXuAhMKQ6yrMtgG9OOB0qc8 ZiUGmvFAOrr1RnCDt3AC1BQZIyRSiqOP7AUTowdc1PSFDmFROqxJAZo6mkKtGxVLM4SNRsWdscZF2CFA SiF5jcazEqYEGcMAELFI4NLhEjD5PimW44MLAYLh2+XDdmuhNkRseEUwJrMRKro5JfEPf5TH0WUFHwQw kgn6GqCwIpPELBIIfeNR4BFOJ6PTSnJVJvQf0LPYUs B628rhVzBB4UYu5DVgKkNC6cdk0WXkZyAQWbDiqDOow3TCjrRF3NtSGwYMvLfCDaeL1fKO4kiLJlTxdz VPApnMvvBUIkHFLkhlnxNd8fAWOsFP2zOh9ePGMcDUMpBzWsKIMKYA9FSEOhJJIogRFjSJPfXLUEKW5R XChzINX7HacpohEcsLZlTZouIS1YSROzptYwTsUbMM BSDQo+Da5WBK3am8QdASukVJEuFO4dlq7EGLuRJcOsK0I4fINoY1A8JAfbRs9PAXMyPSWuZdFiMMMCIS pwSU4ELG1lviQ3RJ7NkZFoFPGpVMZezSYlPPh7P70zfKQrIFupCW1NFKC+Frantz+Ub1TFUSmRQJySSUwCm TsMFDMExHzU8SpD6RRf5WyA3QxOY78hOflkkKgILwt UW2JUW3wAXHzFGNOMN9XsJRahC5hwxBvOrDoTSZSYxYlJ43hpOZhMOYnXTTmQXGuOt2XAAXaK7XpmuVx jKuibxAdPPGpYZZJFO3TDEeaicOchBNtnBnyGP01wHwbET5GQw7IQbZnXG4xab7WlMTmKe1GYOXyDT8O ROZpOGPdXCYbOKO9BENhTgOaDLisFEMuGADyLWP1IX AaBZAgEJ3UYkIvCXJwYBe9WHagBNKgUCPfsu6ABPCeDOCrOCV2FsLrOHDzPOUuVNqiZQZbOPWgBSC0GM BhWXBvRP4BMrAhXPCrJMR2WKMgMZSoKXFwjd2POZTbKSPmBRO7ZNJnEVReLLYiXHgnTCTxDBCkPNPlOY FpVXHwOT7ZTtZoHWYeFEJvAYYwDIOkOPKska4VLDQy QDZkYgK5HMKeCMQnSQJhYPsvMJVbCMXuJBS1ZSTuENLdFW1ZHoHvWCVcGRX4XKVeGHZmANLbya3ONWPg DHUrCiwxQiPmOZKsVVYhEGajORApOHT9SLy2QMJuBQXgUU9RQdVnDHOwHRJ2KFCcNMVjPFLqsd8GEHXj HKVoNomuVFNzEOQoWBTjBSupUPYmUEF8BDZsAJMoGB HsYY4ANfCjKYFqWGxiVYarHXXcWRMopv5NTBFgBAXzDDSwJYOpKSRgEUUkOCbrRWFkFVY8MtS1FMYkVG OuLE0TReYtYFZhXGntLMvuNVDnDUMsdq5GLSQlIEAnABjvPbMjNSFiVVKxBTvqDEBmHJRwKxOlMTCzJH HkSZ8ZNdSiDBRhBiOuWwBnZZYcHFLeuf7TKPRiXHCt MTS8OZLoGZAaWAJxLMi8beTvlCQwCLu2QQ2AG1FapxJsXmZDIf4Ti185PTS6OCIjAn3RR6fgUc5zQLRv DTUCOu9FKCy0PgEePDwsUevlXAX7BwdhZOtmYhuwYuRsNRUoJ0PuDUA+BHnhBXDoTSGgLGI9WwngEgHw ZASjCKOnKdRwVlN6U8V4Zi0aUGNPNt6+KXztiOAyzVrrWIXYIoKaDuEoCKqfEEZCRg1V ID Date Data Source [id number] 03/18/2021 11:37:59 AM EDT [facility] Name Value Range Interpretation Code Description Data Yany rce(s) Supporting Document(s) Nursing Note [facility] FUIPQy8sPbBXIdTq60/MZRfdERTbt2MnBGzqKFr7JZzuISHcI5TtSWU2fG5tHVE6LNoUPyAfIxOyRSW9 lbm [file] Q5S6SiRADiV6PsXWklPPN+QA7gLFn+Zm6Tx8AxvgM9ttKdCVtlGXn5Er8UHANVD4NBMn== ID Date Data Source [id number] 03/18/2021 11:16:[address] [facility] Name Value Range Interpretation Code Description Data Yany rce(s) Supporting Document(s) Procedures [facility] System JMUTLk9dSeVTZyBc68/OEYkvLVZxu4YrCYelXFz5MJhpJLTaG3BeUNB8tS3lNFA0HKsBDhUgTnHeIZY0 lbm [file] Rg0K ID Date Data Source [id number] 03/18/2021 11:13:52 AM EDT [facility] Name Value Range Interpretation Code Description Data Yany rce(s) Supporting Document(s) Anesthesia Postprocedure Evaluation [facility] GHXADw1nUdYTTnOt37/TVQpdZEPxg9MwRTjsFIc7JKpzJKIzL2KrMSY8eQ5rCJF8BEcYGlUkDfMzDYU2 lbm KqMbfDXuYxUTWtHojNPoEiPOfkDefaeKFeFG4RnDI6WHUdW41fTVSkONSdW9PjYNQ7JlU+Gh0VXQTxuP VkXC5FDwlO6Ppms7f5EP2vhI/YEHBCvAOvMg5EOLCb2nRMLL/zTzpvY7rrWxtjy5VxNf3C+4mjSOpyWI 5oLeyGsPRi3NHV2ul4Iw8rcCaZPf/WxeFDI0V/bX/K aRLiGW08A+poYsUt1q34MsDJCLut4RU7NcKgAfiAM6z024vyVFfCXknATtJcAPrykafr1U49hpvsXwrf xochTeQPCYa2e9pvR41zx7jaCVCj4oKYVuaoTC3WD7QSK0quryegvtJEVy9HT8NIC68gbVbkzDm2bk9V wpBcWCqDgwgMvraDSWLJEsIERVrCuZUhpRpkNIaMPP [file] kaylee/g+zHN6nbEi7zZ4FSenXFTNtmx/N1s6p3V4cWSa ux4DY7rYzih+qLjeiad7nWIQqsWrVjom2FZWMUnDOLKX/dRkkh1teNuk58KloUnXJ39JV5RG3QdyIb+l YT3xwHx4JRnkLi4Vbu5tCsx3d8hR/SxY7rps2zzQ1W5cJv2BUw8xEK8U40hMC/HGdrm4IozMS+NEi8aG zBHfn2KOSRBf2sc5ACZvpyu/9fjOrBugCQR16qyYYM sdqeptJM27WfIgrcqbZbwGXo6o6Yc61pGX1gbIYi+/0xcU4Xgo6UiL1OLxT6gXi3qGBISjcd5o4bUfw2 sBR1eEBsfmz63IMuJ0ZwqAt0Ig0gaU37mWN5fb9fe5PeutKrnW3jmNRaHzDEHAW/Ghb4pDLZzU2ZW1lB j508cAC8lDWT0PeekQRvK4sFadijHtNb2gFYLB8bU7 pGjjDuWzApaSF90H5uCWgKq/0aS7hDlY1wRms5igQWhPOwq+QWjGPWw6/BRNwzs1qfAoN+2Wi34TG18t BNFgEkD41t3mZjpltwGmK8ElMOL9BeEkAwtPMGgdDgqeeKTxfjXejxdTWS4so25M1de68nK0T4AfLNY8 Lif5hFO+f32KZc1aOiNrP4KwulmTvxkjQFuR3ufAYZ jqiFdhHewK1fYkA0olmB3G76P09XG1fe1u3vTW8ir9zo7CKLZaW9C3VL8nNkOPCFpz7s98ZwC0LZ2hXo 2zhrT4hNqy+9hCw453XuQzVK/SHwxFM0+OelJdhMs7nqkJi8xZMZTn8E6rCXaxRG23lbPzEmWPm88kaj sdAVQkWrsK0MPJ67Gm/jose daniel/vCtCAKpLT3elwgDtORf [file] SwCsTMPbDOBtNAGlMPTrDNC1AnY+KN2vGQr+Wi1Sj3JjneU6nfIcHMioQuSnOn8UTHREG5NDOd== ID Date Data Source [id number] 03/20/2021 12:34:00 PM EDT [facility] [address] [place] [address] CN[facility] PATHOLOGY CLIA# [id number] Surgical Pathology ReportPATIENT: SHAHEEN DAY CASE NUMBER:[id number] #: [id number] Date Collected:03/18/2021ccount #: [id number] Date Received:03/18/2021OB: 1950 Age: 70 y.o. Date Reported:03/20/2021ex: MLocation: [id number] Attending Physician:JAD ELYVClinical Information: NONE PROVIDEDSpecimen: BIOPSY DUODENAL BULB POLYP FINAL DIAGNOSISBIOPSY DUODENAL BULB POLYP:PEPTIC DUODENITIS WITH NODULAR INTRA MUCOSAL EKATERINA GLAND HYPERPLASIA.NEGATIVE FOR NEOPLASM.NEGATIVE FOR HELICOBACTER WITH IMMUNOSTAIN.CNE/GF GrossReceived in formalin, labeled Shaheen Day, biopsy duodenal bulb, consists of a firm wilcox focally red vascular glistening polypoid segmentof soft tissue that is 0.3 x 0.2 x 0.1 cm. The margin is inked. It istotally submitted in one cassette. XIMENA/janet Electronically SignedBy: Wiliam Gale,MDCPT: [id number] PathologistI ATTEST THAT THE ABOVE DIAGNOSIS IS BASED UPON MY PERSONAL MICROSCOPIC EXAMINATION OF THE SLIDES (AND/OR OTHER MATERIAL), AND THAT I HAVE REVIEWED AND APPROVED THIS REPORT.PERFORMED AT: [facility] [address] [place], [place] [address]THE TECHNICAL COMPONENT WAS PERFORMED AT [facility], [address] [place] [address].MARINE SUPERINTENDENT: BETTY OWENS M.D. CLIA# [id number].SHAHEEN DAY Page 1 of 1 Name Value Range Interpretation Code Description Data Yany rce(s) Supporting Document(s) ID Date Data Source [id number] 03/18/2021 10:56:55 AM EDT [facility] Name Value Range Interpretation Code Description Data Yany rce(s) Supporting Document(s) Anesthesia Preprocedure Evaluation [facility] EMAFRc2aYrPHPkMi97/TTYtqGHRnf4EuJEpqAYw7XJpfXTQlQ6UnNQA2iY2bTQG4JWhGXdHkFkNyNNH9 lbm [file] UBn9SGd4I4O1XOW2Ji2yVNNXSe3+GWykpJDneMntIJWQMhQ8GFq6YTbaFPZFBf9Y ID Date Data Source [id number] 03/18/2021 10:36:20 AM EDT [facility] Name Value Range Interpretation Code Description Data Yany rce(s) Supporting Document(s) Care Plan [facility] LPSMPu1pBsZFVnTz16/HXBhcWZGqs3EvHOcbNOj5IEwgXDOcX5UuALB7pL5xHEI5TYbBBhHgXfXaMOH6 lbm [file] ZrfBVQZr+vsH48/Cpe8tOw9rwYObOaiC/zI8/p [file] ARASH/UDsUkA1NgI/9QDE7k/1BBtUJ+iYdpwyIN+mzLY4W7CGIKHKJdbMMjATgypp2exqoljDR2Z+6hS9u ppV6zkq5AC4xnlJbjJPFEni4JwjN/6XthAqHTAt2YG ExwKhx7a6yOD/mQdJdJ+RqOe1/Y0TKXzkDNL4+/UPabT4OUmHrHM4lT6EVXcvIyRVw/ZKXCa80Bvvifc d+73HGE3IHPHOugKPIF0KE6MeQaCOx+gKtxflbCFKmR/cF/FcAW3b2oEetpUisIgW+Y8cC9hcO9VFS14 brBDfY94mbxTDvjzJDoLchZurHUSFYAR+snfDJa2VN Jexv1h7vV4pi5qvFHJ7UzzBH26sqNZfwiO0KSmPL9kQlGr6PztXX+7rPBXrMS8B7Rvl3tFuBrKmgnLS+ vX1j3KqO8dk0VPonGiNlKuU9+JaiQPLD/goR669CLDB4cxi1D+uT1HJ8SotwqWorTK1bAqzpHZdj/E+M WUcdDHNP2OQXpoaXtIJyltwDzVPlwNnAHVmyAOCfjj MF2hdVPrs9BzE5GQg78w/gwq10bjX6zb33Gaj9p84d35r26gANcMKhWm0QvIEMTmgVLOvHqHtwXvzr7a 7rTdsl3lmRusBJfK/aIGWlhdXZdGv9FyrxVy6GgD+e3PW5CZntlU9MrT9ge/OqCpfpPs1NzXktiyupK+ i+zqQEeGp4MAZ314kwI+2FT4u0353AjH3E5Ms4 [file] DQo+Zg1Ab5AwnxC9cjIbFPf0JIRiSA4CTAULD5CTZn== ID Date Data Source [id number] 03/18/2021 08:51:05 AM EDT [facility] Name Value Range Interpretation Code Description Data Yany rce(s) Supporting Document(s) Progress Notes [facility] ZNCIMe8bSfXUFtIn88/DSJxpTSRmu6FvHRroZKi0FWjwCZEvZ7QaFRM1uX5hGCN1CCgZPbItRhVoVUB4 lbm [file] WQRiBPE7S0OcItxtVud0MMNwYHP5ObOnKW0EQm1OHnN0XVF0vNBgYi6UCuQqVhYLWwAyPM0NKAa= ID Date Data Source [id number] 03/18/2021 07:09:00 AM EDT [facility] Name Value Range Interpretation Code Description Data Yany rce(s) Supporting Document(s) Neutrophils 69 % 40-74 Normal (applies to non-numeric resu lts) [facility] Band Neutrophils 0 % 0-10 Normal (applies to non-numeric results) [facility] Lymphocytes 26 % 19-48 Normal (applies to non-numeric resu lts) [facility] Atypical Lymphocytes 1 % 0-3 Normal (applies to non-num lonny results) [facility] Monocytes 0 % 3-9 Below low normal [facility] Eosinophils 4 % 0-7 Normal (applies to non-numeric resu lts) [facility] Basophils 0 % 0-2 Normal (applies to non-numeric resul ts) [facility] Abs. Neutrophils 15.17 x1000/ul 1.92-8.31 Above high normal [facility] Abs. Lymphocytes 5.94 x1000/ul 1.20-3.70 Above high normal [facility] Abs. Monocytes 0.00 x1000/ul 0.14-0.97 Below low normal [facility] Abs. Eosinophils 0.88 x1000/ul 0.00-0.76 Above high normal [facility] Abs. Basophils 0.00 x1000/ul 0.00-0.22 Normal (applies to non-nu meric results) [facility] RBC Morphology \\Normal based on slide scan [facility] Smudge Cells \\Present [facility] Platelet Estimate Automated platelet count confirmed by slide scan [facility] The above 15 analytes were performed by [facility] [id number], ,[place] [address] ID Date Data Source [id number] 03/18/2021 07:08:00 AM EDT [facility] Name Value Range Interpretation Code Description Data Yany rce(s) Supporting Document(s) WBC 21.99 x1000/ul 4.80-10.00 Above high normal [facility] RBC 3.97 x1Mil/ul 4.70-6.[address] [facility] Hemoglobin 12.8 g/dl 14.0-18.0 Below low normal [facility] Hematocrit 38.7 % 42.0-52.0 Below low normal [facility] MCV 97.5 fL 80.0-94.0 Above high normal [facility] MCH 32.2 pg 27.0-31.0 Above high normal [facility] MCHC 33.1 g/dl 32.2-37.0 Normal (applies to non-numeric resul ts) [facility] RDW 13.3 % 11.5-14.5 Normal (applies to non-numeric resul ts) [facility] Platelet Count 143 x1000/ul 130-400 Normal (applies to non-numeric results) [facility] MPV 10.4 fL 9.4-12.4 Normal (applies to non-numeric resul ts) [facility] Nucleated RBCs 0.00 % 0.00-0.20 Normal (applies to non-numeric r esults) [facility] Abs. Nucleated RBCs 0.00 x1000/ul 0.00-0.02 Normal (appl ies to non-numeric results) [facility] The above 12 analytes were performed by [facility] [id number], ,[place] [address] ID Date Data Source [id number] 03/18/2021 05:50:00 AM EDT [facility] Name Value Range Interpretation Code Description Data Yany rce(s) Supporting Document(s) Blood Urea Nitrogen 12 mg/dl 7-18 Normal (applies to non-nume donato results) [facility] Creatinine 0.77 mg/dl 0.67-1.17 Normal (applies to non-numeric resul ts) [facility] N-Acetylcysteine (NAC) and Metamizole barnes ve the potential to falselydepress Creatinine results. Baseline values before medication adminstration are recommended. Patients undergoing treatment with phenindione will have falselydepressed results. Patients on phenindione therapy should be tested with an alternativeCREA method.Toxic levels of acetaminophen may lead to falsely depressed results forpatient samples. Glomerular Filtration Rate >90.00 mL/min/1.73m2 [facility] GFR Reference Ranges:Normal Function or Mild Renal Disease,if clinically at risk:>or= 60Moderately decreased:30 - 59Severely decreased:15 - 29Renal Failure:<15 Please note that the MDRD equation requires an additional adjustment forAfrican-Americans (multiply the GFR result by 1.210).Glomarular Filtration Rate (GFR) is estimated based on the MDRDequation, which assumes a steady state for creatinine (Briseida Int Med 139/2 137-149, 2002), as recommended by the NationalKidney Disease Education Program in conjunction with the National Institutes of Health and the National KidneyFoundation. The [place] method used in calculating this result is traceable to [place] standards. Glucose 84 mg/dl 70-110 Normal (applies to non-numeric resul ts) [facility] Sulfasalazine has the potential to false ly depress Glucose results. Sulfapyridine has the potential to falsely elevate Glucose results. Baseline values before medication administration are recommended. Calcium 8.4 mg/dl 8.5-10.1 Below low normal [facility] Sodium 138 mEq/L 136-145 Normal (applies to non-numeric resul ts) [facility] Potassium 4.1 mEq/L 3.5-5.1 Normal (applies to non-numeric resul ts) [facility] Chloride 110.0 mEq/L 98.0-107.[address] [facility] Anion Gap 7.3 [facility] Carbon Dioxide 24.8 mMol/L 21.0-32.0 Normal (applies to non-numeric results) [facility] The above 10 analytes were performed by [facility] [id number], ,[place] [id number] ID Date Data Source [id number] 03/18/2021 05:45:00 AM EDT [facility] Name Value Range Interpretation Code Description Data Yany rce(s) Supporting Document(s) PT, No Coag Tx/Coag Tx Unk 14.7 Seconds 10.2-12.9 Above high normal [facility] Attention: Effeciive 11/16/2019 The nor mal range for PT (No Coag) has changed:Previous normal range: 10.0-11.4New normal range: 10.2-12.9PT referenence range reflects values for patients not on antic oagulanttherapy.Discrepant results may occur due to anticoagulant effects such ascoumadin, direct thrombin inhibitors; argatroban (Acova), bivalirudin(Angiomax) or dabigatran (Pradaxa) or direct factor Xa inhibitors;rivaroxaban (Xarelto), apixaban (Eliquis) and edoxaban (Savaysa). INR (No Coag Tx/Coag Tx Unk) 1.3 0.9-1.1 Above high normal [facility] Suggested therapeutic INR ranges for ora l anticoagulant therapy: Indication:INRPrevention and treatment of DVT and PE2.0 - 3.0Prevention of systemic embolism with atrial fib., acute AR and 2.0 -3.0 tissue prosthetic heart valves.Prevention of systemic embolism in patients with mechanical heart2.5 -3.5 valves.NOTE: The INR is only valid for patients on stable oral anticoagulanttherapy. The above 2 analytes were performed by [facility] [id number], ,[place] [address] ID Date Data Source [id number] [facility]/18[facility]21 [facility] Value Range Interpretation Code Description Data Yany rce(s) Supporting Document(s) Care Plan [facility] LSNSXy6jGbGOSbSm11/BSAtkOMLnb4MpTWqmWHk7ZXuaCWWoD4XlJMM6nG9hHOG4EPsEMnCaPfBsFRE5 lbm [file] pOl1wgtCt7cJLLAa4I3vHZlqVZ39fmItAmPHs65qepvuZLUfIfzE6JDH24Zt/jose daniel/pCmDLBxSQ0rlhfZ [file] ICAgICAgICAgICAgICAgICAgICAgICAgICAgICAgIC KtKMMpWWPzFIVoHHPgPVEuTVRiLHKdIDHlOLInYYCnWINxWIZgZTRpTACxIZKiAPYxGOSiRC5GHQDfKR AgICAgICAgICAgICAgICAgICAgICAgICAgICAgICAgICAgICAgICAgICAgICAgICAgICAgICAgICAgIC AgICAgICAgICAgICAgICAgICAgICAgICAgICAgICAg XQNvFB1HSFWcHZEuLLGcXVRyYFRaGUCsYPLuXBFbWPShYKQkJVPaFVJwZEVeCLBeLSNyZFBgICHhNGPr ZULuBXUtJXPrAZKfAASyIBHrEMGeWDKnVFAaHHEjZOMdFTVdFLZbXSWqKSMaSF1HIBSbHEPmUFIgTYQr ICAgICAgICAgICAgICAgICAgICAgICAgICAgICAgIC HwYRIsUGUzKGXxJPOeXUDxZVGdCOJpYWNzVOMjUPPlEMTwPDFpUBEoWGPsWZItSCGuVQRrVQUjYF0EIJ AgICAgICAgICAgICAgICAgICAgICAgICAgICAgICAgICAgICAgICAgICAgICAgICAgICAgICAgICAgIC AgICAgICAgICAgICAgICAgICAgICAgICAgICAgICAg FCReUUCoZQ3WLAUqSFIsMHCsUGJaPMWfCJSkRKIzRHTuULHoFWLdHEVlCZEpVDWvNFWcHBQjPYOjZGNh XEWoHQCoKWJuSJNcRTVdPAVhXDUuGEZyGGScAPClZWXyFMSvDUGbDFRySFWgJVZwFQ5ZGPVuOGMzFLWu ICAgICAgICAgICAgICAgICAgICAgICAgICAgICAgIC AgICAgICAgICAgICAgICAgICAgICAgICAgICAgICAgICAgICAgICAgICAgICAgICAgICAgICAgICAgIA 0KICAgICAgICAgICAgICAgICAgICAgICAgICAgICAgICAgICAgICAgICAgICAgICAgICAgICAgICAgIC AgICAgICAgICAgICAgICAgICAgICAgICAgICAgICAg JYEeGILfCUMlFT5MKPNjHUWmBSMcJMYwZZYjQXWoOFSuDUUsTEUkWEFoYDJlFLGuMIMlPQHpPKFcZBCw VGAkKRXeVXJsALYrRCFdSGEcRXRnMBTqBZNgQQKrJKGnFCOcVWXiEVJsQTNfJVQuKFRjVT1XZH82zCJp k9G5RAJkNQ3lnnx/By8BCNxuyfZlqXViRY4UHaXtRQ 1nwl9XGwSkPQ0rva4UKJkXOxRbH0T2bQCvLTRuBPPLKtBkH80uXJveMc15RPdyUODjOdJpKCj3Dx8YEq EoU4hgLQCgWlR7POYpSvGbRVdzTF9Kt6JyoCNjLQg+Bq0RGD6ro5ZqFFesDNTxRN8vhm8OVKjFYaBkC0 XuflN2ZUP6HLEyFk3RDPZnZNCcdGHhTiRwBNJHErJd N0EcrE74THANAi6+ZYjkeqAeWqbFBwX2ARJaf3QwLIx8LE3YQHDpDNu2qPPnL3NuUMZXcQKvWMN0LQso xoSqCXH9fqKpyczwTo4cHQWwPW5tRl7kDYLaPVL6KjJ7CCFEOX5JYZAiLKDwiGVqZMAkIESYOS0AMEnh ADR3IfilqkFokIEgCVlwAV0ZVBSxkxSdEbLuVDUHTP o+Sa9YIZ0zn0KbKUsxQhTyOA5irp9VFPsRHxEvD1B6iSKcN5J0HCqsOc9RNBQvEXOzWbErPPHAAQmbKU 5TTH1wndX9ET3YsZImMMNgDUIwmQThJXf4Q66lrALxVTwcIW5XTXD+Frantz+Jr5WEZTqWBCtONNiXzZhVZ QLLaLsV0SkG3OTd0JuI3MzVN55uPphazZdWAjoVH7H TG3nVPTaCFBAOI6HsPKrxF9fieWsFDTvSAFXUvKjP47rkZKxVWTsRCK3PICiXw5AQAUfJ1YqleEmrJps biJyALFbMKJXEB7YLXqpcqVzkRHwcXbwUS17ySovHH5XDc8UPjFgAA3zsb0ZuSDnKl0NWZDmZZ7JNJXb EMRgHHPsHMW8DRHyMmUaHNdwZNVeDGQqIDF6NEPaVE UuQO3DHxGfLQWtZaS6MfsrZHHrHVGvhg6MVRZcXHCtQhN2MTRlZKNmHNQzHMnoMHYhGPTrSIH3LFZpBZ PrEJ9PXpAhLVDwSQApAhWdELYmOZVixs5SIFQvNFPhDyFrAQQwGZMxMSBvPEmgTGPxUXVyYKj1KSCzXK EeBR8OQaHeXWQzVFLcSKrpEDChQOAxbr4XUEIqBFFu AxA1CsYgVNMhYXTiHJaqMINcGEX5OKFcYBTzGJCpSL9MRqBrSGBfLOE4KlbbVANaPFXpqf7FPGYyIQDw YWhoNISoEBOpRLWvSAuhPFGyPGM0JhS2NRUjEBJiMD8XRgFlJCBzILc9QFOzQOLrBJTxit5WWDDdXWCh Inu1RLKzVILnWACxHOybEEBpOED7NIW4VCOhCEHsDK 6RLlIrMPWiJVoaARAdRPVlVZHgbq5IJZWtXHJxTNXzPcUnXZDtUIKpDFajTEApVNJ6CoJfEPTxXRMgJS 7BPmVqGMNkFBg0TBVcQJMyAMBcif0UCTCbZIQuJIL0SUNbKYKuIVRcHVqqWNLsRDTnIhTeQCOaIVSqUP 4YUgUjLZCnYdR2ZPBfWVJiYLPiad2MFYBuETPdAXKz BBXpUVRxFMLsFRkpCLEmYYOrXnc0YPDjAMQsYS2DFeJgSKTlWtS9XVooVOViRXYsap5RYHPzXFUiLmy4 UYTsXJLkEMIkAXh7ekKnfXEvBDx4KY3HE5ZmsqGpHbuGAs0Rm782TZM3MKFvDr6GW2toLw4lAPYhYDDZ Uj5AYTr8VUDvAHLbCSPiJ9NnVySlRVT8WoVnRXD5Qu g1YwrpDgp+EUq5IKDdWSRjEJDuHIB3N6R7Pqj5ZlQaAocwNIhyASLuYZ5yFCCBDf0+DQpzdGFydHhyZW WXVsEcHDYfSSqaBVTHBx4H ID Date Data Source [id number] 03/18/2021 04:54:14 AM EDT [facility] Name Value Range Interpretation Code Description Data Yany rce(s) Supporting Document(s) Nursing Note [facility] RUTRGg2jOfCIFcOf11/NXAckXGDxn1RbZYwbKHl9JOhiJGAjD8EvPZJ9iF1dJKK2RPqBBbFmNiBeVUI6 lbm [file] AgICAgICAgICAgICAgICAgICAgICAgICAgICAgICAgICAgICAgICAgICAgICAgICAgICAgICAgICAgIC PkFYVhAQTuSUSgOOYaUO8IHEBbDVZsIIQkTODmGVWs ICAgICAgICAgICAgICAgICAgICAgICAgICAgICAgICAgICAgICAgICAgICAgICAgICAgICAgICAgICAg KSMoQCDdKACfYRHwJCDlWHOdGOZfZMDsPR2XFMUpDMJmHZNpIWRrJQHeUEWqBTSqCUEwTJRpPQQyYBSz ICAgICAgICAgICAgICAgICAgICAgICAgICAgICAgIC EnCKBkTYJbQMGrFBOvURHpDZGdUPKaIWCuFGNzZVBmCOYnOO5RPGTnSNDrFEYlTIYxJMXlCHDhXWFaHM AgICAgICAgICAgICAgICAgICAgICAgICAgICAgICAgICAgICAgICAgICAgICAgICAgICAgICAgICAgIC KbQTWsOQVpZXDzQWTqYPZxVH7MGTFgOVXkLFEwYLTq ICAgICAgICAgICAgICAgICAgICAgICAgICAgICAgICAgICAgICAgICAgICAgICAgICAgICAgICAgICAg HAIoUQLxBXIfWNIoXDRuAQWpKPQbQDAuGKYjKO2BGJScCFZvASCfFLZoVRCbSNXmBISrEHPmFXFqPUWa ICAgICAgICAgICAgICAgICAgICAgICAgICAgICAgIC YtNHXyJFZiHVJmCOMwSJAgHFUyAUQlDAEeSKVaANAnWUZcEXKlGR2FZJVxIAHqGOMqIQNdAUMcHJRaNJ AgICAgICAgICAgICAgICAgICAgICAgICAgICAgICAgICAgICAgICAgICAgICAgICAgICAgICAgICAgIC DpVUDjEECpRLWjJQDrSHJdACOnHX6JZUOlRSSrDEQn ICAgICAgICAgICAgICAgICAgICAgICAgICAgICAgICAgICAgICAgICAgICAgICAgICAgICAgICAgICAg JOPjFPUwLRMrSLKtQBZjNRMmTWWrHHNfJKUoDPCtYL3XXZXqAHMiMWQgFGPfNQMdFFJxPHPpGPSyTVGv ICAgICAgICAgICAgICAgICAgICAgICAgICAgICAgIC YkQOYlTUJaLAJlWUAkUVTfUZWaUMCfNBGcCOIzTHRfSYKpNBQeNOFjOZ0ZCQNtYOGzJBDxBRXqKJKjXM AgICAgICAgICAgICAgICAgICAgICAgICAgICAgICAgICAgICAgICAgICAgICAgICAgICAgICAgICAgIC FpIBXpIJVaZHCxJEEtSKSdAEGdHIMaCU3EPC36kVTt c8T8NAPyZP7zuua/Ct1NMSrcriVcjLBrLZ0KDvRjDG0wsy6CVfNfLE0ptn7OHFfYLtFuH7I0nXIbWXDw HVAWCpPpE85dPFkoZd92QYrgZFTeYtUzBWg9Wt2IKhXcK3urKWJmXiI0MRGjVoFqRXbiBE6Td6IcmWVb DQo+Tu6SUL4br1RhTDjgThNpNR2mlz5PLMhFIeWnL2 LhcwQ4DETnYHPrSe6ZTGCgZGIdqOSqAcIhHIYTFjZuB5XrpZ25BQMVVu6+DQplbmRvYmoNCjIzIDAgb2 BvRVv6MI7PIGWfDIo7iRLkWsXnb3suIfDEl1OqKSM2ZUhjonGeNYU1dgJindvdOk5zDFUwKG1tKr9cDY VcXTI4UxKgGHTYPJ8PQNArUMSbzJCgYCWuXZWZCI0Z DDjpESS7LaxubgJldISoXMrzMF5BONHpuiFwYiRxUEVKGRe+Lx8YSN3xw7NiFTffPPSgPA3zsk6JOObO WcFrT5R9mREmF0V4QAnwKl9UGEBxPHUyTrNjYDYKASgnCP9TNZ8hzxE9HH3AnWFmENApUIImjOAcVNc5 M91ymVRgINocTF1AAAF+Frantz+Io7SSJEhHYLqYWGaSk VgRKNIJgRnI0ZbT5FXn2XrL3JlCY65qKpnbhIrHFvmSW2LXN8lCAKfYQTLUG4QeAWpdL8wkzJlPkUyUI AOKzNhQ55pvECxPGAoDWHiDZPtLz5QGGIfD4VbmqTbnMkjanQsUCWmNXLMIB3YDNlmhjMzpAQfrKgvDY 97hPviDU3RIv7SGvEyGY7bda9PeKIrLi2MEJBoSW4J KJBbTUXxLEObLAL8HZJxCeZwTZehEMGmBZJrKHS4AGLtVYUlOF2OSkNxGAHlLOr6UODoULSgVRDihi1V WOSlYOBcENS3PSYeZFOcPCJcRFduWFBfETGuUUT2TTWhIIIhTI9ZXqHnIXAwTWI8ZwpaVIGkERYsoz0T TIQjRGKmIIV5TaVtKIWsPIRuOGtrZJCmLRHqUvPoNY RvVZKmTQ2REuLjIGSqXLP1BSEkCETuILWypz8DQKKbGHAiUdw3BxQoEKNjTPZdFMneBUQlCBReBBB7TL KeKNSnZO1ERwScBFEnUYFhXTIrESSaODNpxh5DZDLqFNBoMRRwDVXbCVOaTEFpVQedLZCdMJR6WafyLU OfJWHyXJ1WSxPmDBFjIVL3AZmrRMTmXFFqyw3UVQLm GUTzSaQ2JNRtTIOfPXBcMGmoSGGsJJF2FNN2NUIxAJHfYM8DMyKdFXZlFKn8RQZwUUWeJJDctt1YDXJq PUUyXUFhMnAjDKJmSWGfFGktDPWuUXP3FfRmDJLqDVCiSO8BFrClTUPuZCq0PWUaUCUpKKUkxq6TNEUy JOUvDIPeHNWrHGWmCCGwOTloKXOmUMNzBaS6REGuIR NnTS8JFfUbMNUxTjU2LNbxKJDrTCKhpu7ADDAsSNVzWDx8RPJqILNlXWVjNEv9tdNcgBMtOJt1JL6NP5 AivqByReCACf4Tn282NIG1TCMlDm6OU7zkMa4hBSGkBLTFPk1BJCd3HIehTDF2GTVnWqTzRak8GYYqKO O1CFEqYaR5YXo2ENB+VSe1C9JrGGX4GXP4Z5PoRdz1 IyBnYxA3JWKvZxh0Kbk7Wf9jVQELJt5+GEmheHOccXknIPXQKqCuYEx7NJsnFBPWFl5W ID Date Data Source [id number] 03/17/2021 06:53:24 PM EDT [facility] Name Value Range Interpretation Code Description Data Yany rce(s) Supporting Document(s) Consults [facility] OADNKw6mJiJQRmUp90/OQNigZQYoq8GvQTyoZAx9QAocFLJxU9RrEQU7zC8xLWU9IBfTElEgKaXzOYV2 lbm [file] LRXkGRDrSVdlG7DwKOU+IG9lXIo+Sm5Vk4LxmwX8xfDjRQrgZXGxXB1VAUIVS9OGIk== ID Date Data Source [id number] 03/17/2021 05:16:[address] [facility] Name Value Range Interpretation Code Description Data Yany rce(s) Supporting Document(s) Progress Notes [facility] LPSUEw8tSuFPFbAq59/IIQotUMTig4JfYIprOWb1XTpcQPLqL0PyLUA5xC2eXIW2MUtFTxXuBhUqAIG4 [facility] DxHcbBRiHuRVEvKdzBBxWzWVrnQshcxLQlZW6LbYP4HQHkB63kFFNjZRIaC2XtGLIpXXu+Kw8XEXOiuT FwJS0HIuwD1L9Vz+A1Ts7z8a0PYAXiyRhTv55rA+h2Jbkt59xaueWqbiEUorWUHVIka3+KV3fqhp+pSV Y5TQsJJSkDdJtw2HcJJXesnb/HZSp11lnv7+HPKLHq ZqH++Q+7GrvMn7PqX5qv8iJCeP1tL8u/OfW8pKMdCHJdT2ntmkPeiUgoVgFYatBjFpACnw2sqi6ms0G3 1Y9eorA10qrboT1JZU375bYtw16lmB0saNJAgrfstMF0plg6WLqSA3NPrlcxAfIZXfdd2vvYX1fhU9Tp 10sonJTIOXdJdCxoOW7+63r1T6qelRxbJukfXteslv ppG/uazoHBnVJIc/LylyUB222cGYM9C3qocL0ldPZK6MbVfNM9gZwfHlPcI03Yv3GnvMDxdj6Xp8PzDd hnyIkasT5Lvqs23eqewa78M5bPgMKMyhpIkO60XGsNLtpaLlEmNhnYFCvCNoJxEZc0wwtY4SFKwa4eYP hdEnac3Yc8I+/Wk8n9N+ricti1+WEcb3G/pzzOhDIj tLIbmqZxFVmcr2jbA6tPjbDNnRkluFg0QYjr7ca9YY4ywxC8fs8zF1W4nEqEblvGmV2H3d2M7PEgPR2P blmo4rwlIDsL+Cve1wDkKPkkBTMAiUT+/XusAgcPCnE4YrblcDKkUsmIjI6DHATfoh5HOdu34e+o7mpV 7U8BX2xYv0QyY0S3V7h2tNuGQssMgpeE9ItRd7+N/X 0+aabfd0rPo7smey01j7MKfp9MTAU9RTiGeCnS8F2QJ9Q4V/ivKf+qPThJEFjRWfu91e/pNjZv99+Makenzie [file] ID Date Data Source [id number] 03/17/2021 01:35:58 PM EDT [facility] Name Value Range Interpretation Code Description Data Yany rce(s) Supporting Document(s) Consults [facility] GUPUSr8pGfLGBkWj68/JJWyhRWIvs4SiGAxgRUq1CHyxTMMnO1AwJIM5vF8lZQL3YSaBZaOtZyEwSPO9 lbm [file] t6Aco7Za43F5by72CWve20RfEEX35Ahl5fy+J94j5a xW3uVQuytgAc71cjrLFSlXDaHgl50dv3DKnOdvVHV4UhsQrroi57SD6gZI7yTgdM57Z3qRo7RnMvgb+Z o1kkN2xNOEdi/Microbiology Professor/w1gt2rav3vI2n7fN/L9Rmu/muenXH+CJWLR6WY/lYo+0I/agvb0eqR6GvxBEhBW [file] DQogICAgICAgICAgICAgICAgICAgICAgICAgICAgIC AgICAgICAgICAgICAgICAgICAgICAgICAgICAgICAgICAgICAgICAgICAgICAgICAgICAgICAgICAgIC AgICAgICAgICAgDQogICAgICAgICAgICAgICAgICAgICAgICAgICAgICAgICAgICAgICAgICAgICAgIC AgICAgICAgICAgICAgICAgICAgICAgICAgICAgICAg ICAgICAgICAgICAgICAgICAgICAgDQogICAgICAgICAgICAgICAgICAgICAgICAgICAgICAgICAgICAg ICAgICAgICAgICAgICAgICAgICAgICAgICAgICAgICAgICAgICAgICAgICAgICAgICAgICAgICAgICAg ICAgDQogICAgICAgICAgICAgICAgICAgICAgICAgIC AgICAgICAgICAgICAgICAgICAgICAgICAgICAgICAgICAgICAgICAgICAgICAgICAgICAgICAgICAgIC AgICAgICAgICAgICAgDQogICAgICAgICAgICAgICAgICAgICAgICAgICAgICAgICAgICAgICAgICAgIC AgICAgICAgICAgICAgICAgICAgICAgICAgICAgICAg ICAgICAgICAgICAgICAgICAgICAgICAgDQogICAgICAgICAgICAgICAgICAgICAgICAgICAgICAgICAg ICAgICAgICAgICAgICAgICAgICAgICAgICAgICAgICAgICAgICAgICAgICAgICAgICAgICAgICAgICAg ICAgICAgDQogICAgICAgICAgICAgICAgICAgICAgIC AgICAgICAgICAgICAgICAgICAgICAgICAgICAgICAgICAgICAgICAgICAgICAgICAgICAgICAgICAgIC AgICAgICAgICAgICAgICAgDQogICAgICAgICAgICAgICAgICAgICAgICAgICAgICAgICAgICAgICAgIC AgICAgICAgICAgICAgICAgICAgICAgICAgICAgICAg ICAgICAgICAgICAgICAgICAgICAgICAgICAgDQogICAgICAgICAgICAgICAgICAgICAgICAgICAgICAg ICAgICAgICAgICAgICAgICAgICAgICAgICAgICAgICAgICAgICAgICAgICAgICAgICAgICAgICAgICAg ICAgICAgICAgDQogICAgICAgICAgICAgICAgICAgIC AgICAgICAgICAgICAgICAgICAgICAgICAgICAgICAgICAgICAgICAgICAgICAgICAgICAgICAgICAgIC NoLPFzXAXbBQWnMAQxUMLwBSMlPSt1K6wmSMKxVZUqNN2hNDv5Yy3+NEqWEdCmUWT8lcNhlV3RTC7gd8 YgCRorNMQdd1AkMGf1VR8VNRBiWVyrKN3KUWtltb9O AZKxPBBxkUEHw7aqAtKrMOJ9AGFnPyevFH0FRWWaM8ufbcWdJWJiGVBIUTfqONRDGWwsTTFOIZHcSOMt StNcXIygDQ6Ni6RedUK3JNn+Sk2RXK4hw1JcTUrdSGHqQP8pxz9UVEpZQjMgZ2JydoK4OAE8QEAqHh7S OHQtSIOcnFPiLHYsTBDRSfHrS4OhwA82JEETWp0+DQ hkeuNxBppQYdN2ZXPri0KxOHi2AL7NSJXwQBq0eJBaK35ka4AxiPSxFipmKBysY6yaUJVzqNSbP5rsFY wcLCGdTCYeQD3vEc5eYRAiNYPtFeUiANLJNQ9IYVGeLVApvEJfHPUyRNHCKC8YFHaxYWW3FggakbRznA FjXFyrNF4JPEPhnmJeXmHpYNZTNCe+Ld3SMU5zs5Cz HYrvVxOoSO6wch3KBAqGZaPhT1D2mKWuY9C1XDxyGs6WHVKyQUBnNzFcKIVUIEfaZR2WAX1hyeT2AM3R oQUmOGZqLLKsdUGtJUt9C67rzOSfFMzjID5CLHU+Frantz+Hk7MVAKpSDImFWBkYbIePNZMTdEvE7RxQ3IN e1NyA1HfXT19vHlkufTiZAshBJ1USF1tVJQuWBBHDK 6ZeDJymY4dqaXwCUCxDQHBRoCvK00lbELgINUwLNUbDBGzHa8YKVUkO5KvxpVvwXvzlcBfXMSbEHSZSW 8DUVyvzrWezGRfbMmuHI33qRlbYQ3NPx6ETqTjFV9usm6EnPZmEk8AXNYnWk2ZCUHpACLeZAUnINF3YJ XzYgPtRXesOCBzFXHzOSD9VXDvPMYaLD9UWqZkRPXi XPArSIdcWHOsFZQpti4WPFSmJPS9DMzaSySxBRVxQBGjQSlzKGJlQDCzQLR6NCPqSHYnDB4RZdMvYCOj PJI7QcYoSXRbZXLtnv5HZHJeQDVrVipvKiWvYNFvDLOlJDhbHBTuXIL0NYIpXDWkFGApOG8PMoVnTPXf ZHbvAhXbZMYmPQTbzq4HGWUdVRSxVDTmBbJhUJRaZL QqCOyeZCApJIW4OWAaEJPsVYCcLC1BRzIwAKQwMTP8SBUpJUUwPXOnqv5KDYDcPPHcKVgzNOQjQNOuHE DzWNuwZXKyRKCaMvO7SSXeLFRvFY1JGrEbFJJaDJW1VhnkRZNkHZEtaj9LCTRfEMPnOmD9LkUuVNUnKP DqMRjrVNPiTPW1TRM9STWmRCQkQB1FUqLuIDSkTXZb ZFHeDRQzZGNkhq9FJFVtUKRsZTP7QmLaBNSaMDCeBZgrOBKfLQQ8YtO9SUUuSSIiHZ7QLnDdJLAaCOY3 CgGmVDBgFASbcz5LXYQmHQEhPRn5KxYsQGUwBCIpJLidTYQkKDE4IiH9SEOnTDKhMY0ZEcIuNJAwLXS5 EjAjBXXzTZDupf6BWIRjBPNdHmMlJuKdDQKeZUSvUY qnCKEgRSK4XOadVBTrULKrSG4THbDuIUNjFVhmFTPpPUPdNPIoib9NCWRoGTRwGSJ0VvFoDVExAHAwAE taGQHrDKGdSAU5YRIyVBCvTW5PVrGrHFJbPFG1PAXlHEThSMQkpr3QEOVxFEA2CxSrCOFzCZOvMWVnKX ghFAVpMSKvRFo6OLLjTROkXL4EMcJsYVYpWXHjLjza SNIoLFCvhs0UIKWlRLH6NsF0JxNoBFQbOIRsDIowDKBsESJ4IMFvCMAwDZRgWI8TMlAkYDKhUCKoVDTu MNVoGEHjqu2HUCRfNRA4CBX4LKTdZOQqOTPnISh2ucWjzZRmHUi9FB2KS8MrizAiLquUAf1Br625WNI5 TUXwVu3AF0fpDu2zRXChLCNYYi1YHKe3IVPoFTWmJX MxOVKaECN5IDLuCYFbNmQyKIifLVX2Y2N+PWzbFsIiN1HjYFMqPSYvHzU0LxJ1FbSvBHNnRoJrFhV8Zt 3cCIMJQv8+FPhedYAaxZbwCQLCBpH0XzugTCkyVGRAGk7P ID Date Data Source [id number] 03/17/2021 12:01:00 PM EDT [facility] Name Value Range Interpretation Code Description Data Yany rce(s) Supporting Document(s) PT,Patient (on Anticoag. Therapy) 18.1 Seconds [facility] Attention: Effeciive 11/16/2019 The nor mal range for PT (on Anticoagulant Therapy) has changed:Previous normal range: 10.1-11.3New normal range: NoneDiscrepant results may occur due to anticoagulant effects such ascoumadin, direct thrombin inhibitors; argatroban (Acova), bivalirudin(Angiomax) or dabigatran (Pradaxa) or direct factor Xa inhibitors;rivaroxaban (Xarelto), apixaban (Eliquis) and edoxaban (Savaysa). INR (on Anticoagulant Therapy) 1.6 2.0-3.5 Below low normal [facility] Suggested therapeutic INR ranges for ora l anticoagulant therapy: Indication:INRPrevention and treatment of DVT and PE2.0 - 3.0Prevention of systemic embolism with atrial fib., acute AR and 2.0 -3.0 tissue prosthetic heart valves.Prevention of systemic embolism in patients with mechanical heart2.5 -3.5 valves.NOTE: The INR is only valid for patients on stable oral anticoagulanttherapy. The above 2 analytes were performed by [facility] [id number], ,[place] [address] ID Date Data Source [id number] 03/17/2021 11:54:00 AM EDT [facility] Name Value Range Interpretation Code Description Data Yany rce(s) Supporting Document(s) Hematocrit 38.3 % 42.0-52.0 Below low normal [facility] The above 1 analytes were performed by [facility] [address], ,[place] [address] ID Date Data Source [id number] 03/17/2021 11:54:00 AM EDT [facility] Name Value Range Interpretation Code Description Data Yany rce(s) Supporting Document(s) Hemoglobin 12.6 g/dl 14.0-18.0 Below low normal [facility] The above 1 analytes were performed by [facility] [address], ,[place] [address] ID Date Data Source [id number] 03/17/2021 07:49:13 AM EDT [facility] Name Value Range Interpretation Code Description Data Yany rce(s) Supporting Document(s) Nursing Note [facility] ZEZUHs3lZzWDJlBd57/CEMyvYRKnn8IiMArfRBb7YFspYARvB9LwIWH5rQ8rZBY8UPhASlHkNzCuEDE2 m [file] PM14Gq/jose daniel/jExAWKgPQ7aymmLwSTcn1fNfXLZ4ToeAjO0U0Ywy6yWRo6rbd0Pdt5Lbpfm7a12t4TdSS [file] IiPxTE7UTi1RKiL1RKZ9vRKlMj1ZVhScQUPQGkQbTB6IEWr= ID Date Data Source [id number] 03/17/2021 05:18:49 AM EDT [facility] Name Value Range Interpretation Code Description Data Yany rce(s) Supporting Document(s) H&P [facility] TQPOYf6iOeYRBxTd19/SLWjpTENog3ZmVArkEDi0TEfcEIVzE1CfHJL0wE6kNIK4EYlVSsScHqOgWCB9 lbm [file] vp client services/NatDeUi+yEULoV+WLBzjpeiCDADYLv8XC/hb2Im [file] José Miguel/F98g+/CPFoxLjpzAfS40WgDAfFV1a/nVJDbtvz4/8Sy/w0VXQT3lxz5s9UL2N3La5/z45u6ppHsJ [file] I+lYDs5cxC7d+cell operator+JpLbqvEe1F5mr0vw6Bw/sZoZKMS/KsWVNfBWFDblT5bs8KJowiTCqGI103/sz5r [file] ZdeueHgl+G3gvx+financial risk manager/AefOwtG4GjY8W0y1Z+wkqD5xafYRhFb2ahxF4WK0OO1n1cPRVJNUXLvlkXCwRV [file] +tUHUlu+CcsHr/KJdVBXLP/+aae4d0oWy+Pz0C [file] qEy2aFRm5VYfdsr303iyAV57sXfjl3Gjmc+9t9EHyAW092tUzRckDecAxpslTTWJ7EWwHa/Rwfan+barge engineer [file] Manager Of Finance/JA5xwEwSE5BAQuTWsuJngeBmvJmR5LNCGFPzJ2Q YTysjzjVRrb+AbvW+10ZJP2tC+gV6EpCNhBVIwqwUKFd6TIsxXf8un054FYsan0F3vX50xoqkmACJ9uW TNreYi0D32jRvbG2cNpLPLDKtzDThg14bKOqJs9SfDIWLshvewsNOAlawa10uplK2GSLWwDVbQFvlRgM okCVieCzcM3/JdnluDyMIa6f5DYkkqLe4Zz4lYEvMf 12uzkpALKZP05yOZ2NcdwvvgXCBaN1cHKWC5/S1P11mmIRVc372xIVH1ucOpMqqcIm5OukPW3NYq6Cxv eMTwNs6ALGdHnokP8u9ayNth6lBTdKuD4G0MRkz3MhXoUuPr/NTWcEOgLQc+yFGZ72ZHRUqIH6aQcWyM JbJsKv56BHVft/kJkktwVHycnlyNjkrrA5wylebg8k [file] Photo Optics Technician+lP1wYJCOBbgmmEOXryWsNCXx7msJSg4qZ2dugc7 [file] w0hTq7zinLMAg+3g1IPeYyTOedCbNg0dkPZzGjIu+nUSzf/bowling ball assembler+zv1VG2LEHCApDsiy6Ju31bNNHeZcu 9mUHTdYXuQniSkXIXrBC3zutUdtX8KmqYsaPfZD8zv HzA4UK1eJB0uQDSNgZ/zD0KHON1e5CsK3LfmQ2786oW0OdOv2IaDX8TGTzhtJtXplCyEvPMNAfH061eL QZYHeZoQfMDRAyy1L46bN+KBXJCxYhhZKCT573KGsBfZPIpE1uillQnqNioK8TqZZNIuNB9AElSRFiMt iSjadL4gJYhksdT4RE49WfzQ20BvXGIEEqoR1mBP2h jM2EAAEgZ5H66CXDR3Kvq8h/talN4ZRQiFmAMyqnKBSIx5GxXbLJxKIgCsb7ohKfWse/M7Ou2eI+gfFG byZGwqrEFZzWsLl0b6mx6nJDGRjJcSNHZigdMeos1VJayvVucr2NgAyaXuFokC5OrfAHVEePBrmHe+8g XWqS5aX0c2Rfp5NbQDfeTNfoGwO4W6KQCHwgKUKOOs EACfdzRyHUKLAjbshfDDXdfS59II4gGSLIiPzIhwIAUx5kQUP9nIIZPp/zfEUJGo8pHRW4FF5hLo8ueY FqjdI6+OjpcRvFSWZn1FcA6nZFTGGZaCOzXsPYI4BMw/CAuBxPbQTaGSNJOMWYRED9unHidYVbB58Uma GOE2lFsZt2HKY+E4ij6hmffy0IRhCMFrUG41csoI8j NhZCl16GiNLMAugueBAQrSXjMsJ03rUYJaRJnecH0aNl5zbtOaGLvRosN5VmX0kLFiq214ZtdZjiyxjF sfCXmCIHCTwMydKQAw78kjRKvmctk/7ExiG3aEHQue7T4bd5j4J0olh0guqaqXFc0VAHmNxHOrMekWz8 8F+QBNGuh8xuUenDdpYvgdMWB9iTP8ldtGIIQXo5e3 Elza/gctBZ3sT1HdgY8lraE0kbbXBSBBFvf873qequFfYcJJ+Fd0t16MmnVEreEtxGdeGMWYNrvYMcwAu [file] AgICAgICAgICAgICAgICAgICAgICAgICAgICAgICAgICAgICAgICAgICAgICAgICAgICAgICAgICAgIC KwORIhPVXgNEWgZSHoLTVaVZ8YJDVgBYWiTACeWMPn ICAgICAgICAgICAgICAgICAgICAgICAgICAgICAgICAgICAgICAgICAgICAgICAgICAgICAgICAgICAg HLGyYXNvFFUdYYRnGIApTSJgIXOdQKKcSTWbVQ7BXYBjZFAmXABwQLDmKYQvLCVoRUBeBNRwWWFbJQGm ICAgICAgICAgICAgICAgICAgICAgICAgICAgICAgIC HzILLpXXAqWBNyUUIcDIAnNSFnLJXsYCPrBSIiGTQrGLEkJMTtIG7HBFPzPABbDIVxGRTwCCMjNGDzEX AgICAgICAgICAgICAgICAgICAgICAgICAgICAgICAgICAgICAgICAgICAgICAgICAgICAgICAgICAgIC XdULZsPQAoWLGiNKOlSHJfXQMtLA5MLRLrDFPoJFQy ICAgICAgICAgICAgICAgICAgICAgICAgICAgICAgICAgICAgICAgICAgICAgICAgICAgICAgICAgICAg VVWcBFQjJRVoZYJmKREpWBNxCVXqIKDvCYEoRVMrTP3CCESyOOInTHSdYEYeNWTaUGZhONDwLNOkRGXi ICAgICAgICAgICAgICAgICAgICAgICAgICAgICAgIC IvJQSfFFKdXRQhUIRpLLOvYVQxQQKtQJTfMTHvJWNoDSBnXBUuQGGzMA9MWPFcMOXsICXgPRHyMBVnQZ AgICAgICAgICAgICAgICAgICAgICAgICAgICAgICAgICAgICAgICAgICAgICAgICAgICAgICAgICAgIC OkUPPoIEYaLIRcFGKoXXInIHSxBVWyEF9ZHHEhOMHv ICAgICAgICAgICAgICAgICAgICAgICAgICAgICAgICAgICAgICAgICAgICAgICAgICAgICAgICAgICAg DOLdHIErJLGaKBPtABEsHZIzNHKwIUQeXGUrXAPaUIEmRV5XVUDkXAMoUWCsIEBcWZGyTDOlZHKaTNHj ICAgICAgICAgICAgICAgICAgICAgICAgICAgICAgIC FgVFXlBTSpBCBeGZKnFNWlKJIrOOMgDAUpZKDaFHTzQRJvQBXbVUJvCPZrFU3GZLOmUWMeOUZqTZLjTT AgICAgICAgICAgICAgICAgICAgICAgICAgICAgICAgICAgICAgICAgICAgICAgICAgICAgICAgICAgIC VwUQRhDPWyODXmKJQzGDBmCFYoDNYwBEBeMQ9VNV95 wKRwr8W2MNZbDT8izps/Cq5SQGvmcqWukENaJY7MIzOjCK2jqc7HEcQaRL9daw1LYMpPPlAwH0D9rBVy QDVpPSCZQyWkL34cHSoqEq94AMsfHOQwApEkWJd7Vs9LHdJtZ8znFGYnGqL3DYBpUiC3SOQrVzJ6FAIe JfSkDFBnJMYiHDCnQSRNVUU7MORaVhOqAIzhNN3Ae2 OzkWQ0LYi+Aw2LEI1jg0FiAJijHjPmJL6lae4FPQvQMyZhB4OpygJ6GMI4GKNtBo8AUNAaCOEbkQBpWl JdZCYBAuFlN2GzcJ80MDGGXs3+KIcubbUcXefEUcQ0VHEzp6FvCSx7AG9VSDPwNOn8tWHoOXUNHES8UU HwcLooeYDEIXXmrNPlVT6FUGA4KVhlKiKePsCaMZBw TMp6EKZKVVsTRaZqR0Yrs2JzXyD5GVPpTjEuELnkHSPxEqM4JM77yHcxYW1GUZTaODHmFW06WQN0DQEi Bm7BRl7FOxFyJW9tff4NGukmQDDoZqvXMxk1XOyrUL0JzSPaM9GteEXpv1xXAmYsU0SGYFY7LJYjTz0Z SHQeLgRdJFFlSEfqQS7lCREgNEPGjXwjtfD0GO8CGI 3faoRsMZ9LTqOrJg0cHh7CNiWsM9CnA4GfXZAeXFRWHOneAO5MIMxzBZ9wOG1Ar9KViLAluI7zjb1EES StAAZkDdqjhs3IRmvoO3Y4kRvrWKScPvQwTDQFCVdwBB6XHKUeXWP2FDSnYKRmUCEUZbDeR13zTK2WC6 Zgo25bBaK9PNJwZyJqMZubID64oZzaaeNngUGzfBmu CH6OFz7+CTdscjIvXrqQQcvsLBHUAkTmUlsAJzZjWMKjZAIaEYPhElL1LeDpRf0VRFBlNBSdYEQkSiXy HWOsPCHqOReqNYYpXdXeTSSuSOWvPQPdLL2MJbNcSNMzSqDwSIItFFZdQKZrre8UNPOwYHLaBGQ9LqGy ESJzTPUtJYanVQWyQUAhCJH0DEGmKNZxQO3NWkIbYI AlJLObVBtcOPBmAJRyho1UITWxCJTeWWmbUOWfLXUxDBVgIJybTCYoRNK0ICR6OJAgTMUcPT6VUbKnRL IgJLc6CLToLXUwYNOpgc2XWTMdNKXaHRG2QEJrPSTxDTMuOXziZIXtZWD4StY0TORsAWIqGJ3YKzJzXG MnQBq8LVBcAQSlJLDbwn7HKZXuMUVpQTJ9YUSqUSRv WSRdQNuwGTJnVJYlAcE7BOLyUVBzBS4OOiIsDBExJON3OHerVLYeYDWasj7REHLlJJNlHeZ6PHRnZYOd OYDqOLabATRvDPG9LDQ0QYReVDTzVQ7NYkKeGGGjTXAkPEWaSSRwJNAnfj8BYDKyROKeVFG6QGXwSOQa FCEeOQxsZQThEOY4VSX6MTRdIBMnIQ9UYsEnUDMuPH T5NIMjOEIuKLPpdf6ECEKbKNOtOIg5FZOoADEuHKHnLVnoYNRsLZB3YFJvMGMfHYHgEE3GWjYyMLDcIA npDWOjGHQdLUEetg7VNOXsHNTgTxB3MKTbBURwIMVwPJhhEMNzJEK7HZe1NBDyMARbTL0PPeKhKCMuRZ ktVLfdZRPpMUIbmz4GSIHjZGHfSNS7MKOjXAXcZXOd ZZhoLOOwLII9WEAhEZLqUDOsRU6WWjXiRCYnFOd7LBkmMUXqIHPnba4ELWJdOQMfPOv8KBNnECJfLAYn VHrsYEQmJTMwWzb2CMBoMHZePH3QHlYtRBV4WqZaVesrHGFtVYQwwv1AOWNvIAAgYSIoHFXkWEWaFEVa ONksZAIeAvOoASVvBIWjUMDhPQ8DAsFoJGTiYiCbOD XwWCAxJCSzhy8TXCFlFZGhUbB8OeBwTCYzOCQoETeuKIThOhCkAOq3ILPyOWJxIU7FIjTzAUsrFAGCKs v4VLozJ8z1QJKzBP0YC4Jtp1CrDzzjTLWIDMgqNR8tdtUbOPBvRc1BR9xRDpp3ABcaNkOhAvm3XOV7QY jnRFD9JCBnINLeZtA2DHNiEq8lJUlbRVKaNPN8LPF4 ADouDWV7XLngEHO0FSZfLzaeGQUuOgYpSM2TDl4DJfB7FIR3iSAfHq5QINIlGjbiCe2SYOJWI1ZJCk== ID Date Data Source [id number] 03/18/2021 03:18:00 PM EDT [facility] [id number] lymphocytosis (6,85 0/ul), neutrophilia with left shift andmacrocytic anemia. Recommend flow cytometry to rule out a low gradelymphoproliferative disorder. Rule out B12/folate deficiency. Correlation with clinical findings is recommended. Reviewed by Ananda Sena MD. on 03/18/2021The above 1 analytes were performed by [facility] [id number],[facility] [id number],[place] [address] Name Value Range Interpretation Code Description Data Yany rce(s) Supporting Document(s) ID Date Data Source [id number] 03/17/2021 07:28:00 AM EDT [facility] Name Value Range Interpretation Code Description Data Yany rce(s) Supporting Document(s) AST 34 IU/L 15-37 Normal (applies to non-numeric resul ts) [facility] Sulfasalazine and sulfapyridine have the potential to falsely depressAspartate Aminotransferase results. Baseline values before medication administration are recommended. ALT 27 IU/L 16-61 Normal (applies to non-numeric resul ts) [facility] Sulfasalazine and sulfapyridine have the potential to falsely depressAlanine Aminotransferase results. Baseline values before medication administration are recommended. Alkaline Phosphatase 142 mIU/ml 50-136 Above high normal [facility] Total Bilirubin 0.50 mg/dl 0.20-1.00 Normal (applies to non-numeric results) [facility] Blood Urea Nitrogen 13 mg/dl 7-18 Normal (applies to non-nume donato results) [facility] Creatinine 0.76 mg/dl 0.67-1.17 Normal (applies to non-numeric resul ts) [facility] N-Acetylcysteine (NAC) and Metamizole barnes ve the potential to falselydepress Creatinine results. Baseline values before medication adminstration are recommended. Patients undergoing treatment with phenindione will have falselydepressed results. Patients on phenindione therapy should be tested with an alternativeCREA method.Toxic levels of acetaminophen may lead to falsely depressed results forpatient samples. Glomerular Filtration Rate >90.00 mL/min/1.73m2 [facility] GFR Reference Ranges:Normal Function or Mild Renal Disease,if clinically at risk:>or= 60Moderately decreased:30 - 59Severely decreased:15 - 29Renal Failure:<15 Please note that the MDRD equation requires an additional adjustment forAfrican-Americans (multiply the GFR result by 1.210).Glomarular Filtration Rate (GFR) is estimated based on the MDRDequation, which assumes a steady state for creatinine (Briseida Int Med 139/2 137-149, 2003), as recommended by the NationalKidney Disease Education Program in conjunction with the National Institutes of Health and the National KidneyFoundation. The [place] method used in calculating this result is traceable to IDMS standards. Glucose 91 mg/dl 70-110 Normal (applies to non-numeric resul ts) [facility] Sulfasalazine has the potential to false ly depress Glucose results. Sulfapyridine has the potential to falsely elevate Glucose results. Baseline values before medication administration are recommended. Calcium 8.3 mg/dl 8.5-10.1 Below low normal [facility] Total Protein 6.2 g/dl 6.4-8.[address] [facility] Albumin 2.8 g/dl 3.4-5.0 Below low normal [facility] Sodium 140 mEq/L 136-145 Normal (applies to non-numeric resul ts) [facility] Potassium 4.1 mEq/L 3.5-5.1 Normal (applies to non-numeric resul ts) [facility] Chloride 110.0 mEq/L 98.0-107.[address] [facility] Anion Gap 9.7 [facility] Carbon Dioxide 24.4 mMol/L 21.0-32.0 Normal (applies to non-numeric results) [facility] The above 16 analytes were performed by [facility] [id number], ,[place] [address] ID Date Data Source [id number] 03/17/2021 06:32:00 AM EDT [facility] Name Value Range Interpretation Code Description Data Yany rce(s) Supporting Document(s) Neutrophils 59 % 40-74 Normal (applies to non-numeric resu lts) [facility] Band Neutrophils 0 % 0-10 Normal (applies to non-numeric results) [facility] Lymphocytes 31 % 19-48 Normal (applies to non-numeric resu lts) [facility] Atypical Lymphocytes 1 % 0-3 Normal (applies to non-num lonny results) [facility] Monocytes 5 % 3-9 Normal (applies to non-numeric resul ts) [facility] Eosinophils 2 % 0-7 Normal (applies to non-numeric resu lts) [facility] Basophils 0 % 0-2 Normal (applies to non-numeric resul ts) [facility] Myelocytes 1 % 0-[address] [facility] Promyelocytes 1 % 0-0 Above high normal [facility] Abs. Neutrophils 12.64 x1000/ul 1.92-8.31 Above high normal [facility] Abs. Lymphocytes 6.85 x1000/ul 1.20-3.70 Above high normal [facility] Abs. Monocytes 1.07 x1000/ul 0.14-0.97 Above high normal [facility] Abs. Eosinophils 0.43 x1000/ul 0.00-0.76 Normal (applies to non-numeric results) [facility] Abs. Basophils 0.00 x1000/ul 0.00-0.22 Normal (applies to non-nu meric results) [facility] Abs. Myelocytes 0.21 x1000/ul 0.00-0.00 Above high normal [facility] Abs. Promyelocytes 0.21 x1000/ul 0.00-0.00 Above high normal [facility] RBC Morphology \\Normal based on slide scan [facility] Smudge Cells \\Present [facility] Platelet Estimate Automated platelet count confirmed by slide scan [facility] The above 19 analytes were performed by [facility] [id number], ,[place] [address] ID Date Data Source [id number] 03/17/2021 06:32:00 AM EDT [facility] Name Value Range Interpretation Code Description Data Yany rce(s) Supporting Document(s) WBC 21.42 x1000/ul 4.80-10.00 Above high normal [facility] RBC 3.94 x1Mil/ul 4.70-6.[address] [facility] Hemoglobin 12.8 g/dl 14.0-18.0 Below low normal [facility] Hematocrit 38.5 % 42.0-52.0 Below low normal [facility] MCV 97.7 fL 80.0-94.0 Above high normal [facility] MCH 32.5 pg 27.0-31.0 Above high normal [facility] MCHC 33.2 g/dl 32.2-37.0 Normal (applies to non-numeric resul ts) [facility] RDW 13.5 % 11.5-14.5 Normal (applies to non-numeric resul ts) [facility] Platelet Count 151 x1000/ul 130-400 Normal (applies to non-numeric results) [facility] MPV 10.6 fL 9.4-12.4 Normal (applies to non-numeric resul ts) [facility] Nucleated RBCs 0.00 % 0.00-0.20 Normal (applies to non-numeric r esults) [facility] Abs. Nucleated RBCs 0.00 x1000/ul 0.00-0.02 Normal (appl ies to non-numeric results) [facility] The above 12 analytes were performed by [facility] [id number], ,[place] [address] ID Date Data Source [id number] 03/17/2021 05:32:[address] [facility] Name Value Range Interpretation Code Description Data Yany rce(s) Supporting Document(s) PT, No Coag Tx/Coag Tx Unk 23.3 Seconds 10.2-12.9 Above high normal [facility] Attention: Effeciive 11/16/2019 The nor mal range for PT (No Coag) has changed:Previous normal range: 10.0-11.4New normal range: 10.2-12.9PT referenence range reflects values for patients not on antic oagulanttherapy.Discrepant results may occur due to anticoagulant effects such ascoumadin, direct thrombin inhibitors; argatroban (Acova), bivalirudin(Angiomax) or dabigatran (Pradaxa) or direct factor Xa inhibitors;rivaroxaban (Xarelto), apixaban (Eliquis) and edoxaban (Savaysa). INR (No Coag Tx/Coag Tx Unk) 2.1 0.9-1.1 Above high normal [facility] Suggested therapeutic INR ranges for ora l anticoagulant therapy: Indication:INRPrevention and treatment of DVT and PE2.0 - 3.0Prevention of systemic embolism with atrial fib., acute AR and 2.0 -3.0 tissue prosthetic heart valves.Prevention of systemic embolism in patients with mechanical heart2.5 -3.5 valves.NOTE: The INR is only valid for patients on stable oral anticoagulanttherapy. The above 2 analytes were performed by [facility] [id number], ,[place] [address] ID Date Data Source [id number] 03/17/2021 05:13:[address] [facility] Name Value Range Interpretation Code Description Data Yany rce(s) Supporting Document(s) Hemoglobin 12.8 g/dl 14.0-18.0 Below low normal [facility] The above 1 analytes were performed by [facility] [id number], ,[place] [address] ID Date Data Source [id number] 03/17/2021 05:13:00 AM EDT [facility] Name Value Range Interpretation Code Description Data Yany rce(s) Supporting Document(s) Hematocrit 38.9 % 42.0-52.0 Below low normal [facility] The above 1 analytes were performed by [facility] [address], ,[place] [address] ID Date Data Source [id number] 03/17/2021 04:38:37 AM EDT [facility] Name Value Range Interpretation Code Description Data Yany rce(s) Supporting Document(s) Care Plan [facility] [id number] lbm [file] [id number]= ID Date Data Source [id number] 03/17/2021 12:07:00 AM EDT [facility] Name Value Range Interpretation Code Description Data Yany rce(s) Supporting Document(s) Hemoglobin 13.4 g/dl 14.0-18.0 Below low normal [facility] The above 1 analytes were performed by [facility] [address] [facility], ,[place] [address] ID Date Data Source [id number] 03/17/2021 12:07:00 AM EDT [facility] Name Value Range Interpretation Code Description Data Yany rce(s) Supporting Document(s) Hematocrit 39.9 % 42.0-52.0 Below low normal [facility] The above 1 analytes were performed by [facility] [id number], ,[place] [address] ID Date Data Source [id number] 03/16/2021 12:46:00 PM EDT [facility] Name Value Range Interpretation Code Description Data Yany rce(s) Supporting Document(s) COVID-19 NEGATIVE [facility] This lab was ordered by [facility] Lab and reported by [facility]. ID Date Data Source [id number] 03/16/2021 01:06:00 PM EDT [facility] TSYSORDER [id number] Name Value Range Interpretation Code Description Data Yany rce(s) Supporting Document(s) COVID-19 NEGATIVE NEGATIVE [facility] Negative results should be treated as pr [...] are for the indentification of SARS-CoV-2 RNA. ZzaHXYJ-[id number] RNA is generally detectable in respiratorysamples during the actue phase of infection. ID Date Data Source [id number] 03/16/2021 11:32:00 AM EDT [facility] TSYSORDER [id number] Name Value Range Interpretation Code Description Data Yany rce(s) Supporting Document(s) URINE RBC 3-5 /hpf 0-3 H [facility] URINE WBC 0-2 /hpf 0-5 [facility] URINE BACTERIA 2+ NONE SEEN H [facility] URINE MUCUS 2+ NEGATIVE H [facility] ID Date Data Source [id number] [id number] 03/16/2021 11:29:00 AM EDT [facility] TSYSORDER [id number] Name Value Range Interpretation Code Description Data Yany rce(s) Supporting Document(s) URINE COLOR. DARK YELLOW [facility] URINE APPEARANCE SLIGHTY CLOUDY [facility] spital URINE GLUCOSE (UA) NEGATIVE mg/dL NEGATIVE [facility] URINE BILIRUBIN NEGATIVE NEGATIVE [facility] URINE KETONE NEGATIVE mg/dL NEGATIVE [facility] SPECIFIC GRAVITY,URINE 1.025 1.005-1.030 [facility] URINE BLOOD 1+(SMALL) NEGATIVE [facility] PH,URINE 5.5 5.0-9.0 [facility] URINE PROTEIN 2+(100) mg/dL NEGATIVE [facility] URINE UROBILINOGEN NORMAL(0.2-1) mg/dL 0-1 R [facility] URINE NITRATE NEGATIVE NEGATIVE [facility] URINE LEUKOCYTE ESTERASE NEGATIVE NEGATIVE [facility] ID Date Data Source [id number] 03/16/2021 09:19:00 AM EDT [facility] TSYSORDER [id number] Name Value Range Interpretation Code Description Data Yany rce(s) Supporting Document(s) NEUTROPHILS 25 % 50-80 L [facility] LYMPHOCYTE 69 % 25-50 H [facility] MONOCYTE 2 % 2.0-10.0 [facility] Eosinophils [#/volume] in Blood by Automated count 4 % 0-5 [facility] BASOPHIL 0 % 0-2 [facility] PLATELET ESTIMATE NORMAL NORMAL [facility] RBC MORPHOLOGY EXPECTED RESULTS:NORMAL= NORMOCHROMIC, NORMOCYTIC CELLSAbnormal Morphologic Findings > or = to 1+ are reported.Clinicopathologic correlation by the provider is required todetermine significance of finding. ID Date Data Source [id number] 03/16/2021 09:30:00 AM T [facility] TSYSORDER [id number] Name Value Range Interpretation Code Description Data Yany rce(s) Supporting Document(s) WHITE BLOOD COUNT 25.8 K/mm3 4.0-10.0 H [facility] sera RED BLOOD COUNT 4.33 M/mm3 4.50-6.00 L [facility] HEMOGLOBIN 14.0 gm/dL 14.0-18.0 [facility] HEMATOCRIT 40.6 % 42.0-54.0 L [facility] MEAN CELL VOLUME 93.8 fl 80-96 [facility] MEAN CORPUSCULAR HEMOGLOBIN 32.3 pg 27.0-31.0 [facility] MEAN CORPUSCULAR HGB CONC 34.5 g/dl 32.0-36.0 [facility] RED CELL DISTRIBUTION WIDTH 13.5 % 10.0-14.5 [facility] PLATELET COUNT 165 K/mm3 172-450 L [facility] MEAN PLATELET VOLUME 10.2 fl 9.0-13.0 [facility] GRAN % 21.8 % 50-80.0 L [facility] IG% 0.2 % 0.0-0.2 [facility] LYMPH % 73.9 % 25.0-50.0 H [facility] MONO % 2.5 % 2.0-10.0 [facility] EOS % 1.4 % 0-5.0 [facility] BASO % 0.2 % 0.0-2.0 [facility] GRAN # 5.6 K/mm3 2.0-8.00 [facility] IG# 0.0 K/mm3 0.0-0.2 [facility] LYMPH # 19.1 K/mm3 1.0-5.0 *H [facility] MONO # 0.7 K/mm3 0.10-1.20 [facility] EOS # 0.4 K/mm3 0.0-0.5 [facility] BASO # 0.0 K/mm3 0.0-0.2 [facility] ID Date Data Source [id number] 03/16/2021 09:18:00 AM EDT [facility] l TSYSORDER [id number] Name Value Range Interpretation Code Description Data Yany rce(s) Supporting Document(s) BLOOD TYPE ABO O [facility] RH TYPE POSITIVE [facility] ANTIBODY SCREEN NEGATIVE [facility] ID Date Data Source [id number] 03/16/2021 10:27:00 AM EDT [facility] TSYS[facility] [id number] Name Value Range Interpretation Code Description Data Yany rce(s) Supporting Document(s) LACTIC ACID 0.8 mmol/L 0.4-2.0 [facility] ID Date Data Source [id number] 03/16/2021 10:16:00 AM EDT [facility] TSYSORDER [id number] Name Value Range Interpretation Code Description Data Yany rce(s) Supporting Document(s) PARTIAL THROMBOPLASTIN TIME 53.7 SECONDS 21.2-27.3 H [facility] ID Date Data Source [id number] 03/16/2021 10:16:00 AM EDT [facility] l TSYSORDER [id number] Name Value Range Interpretation Code Description Data Yany rce(s) Supporting Document(s) PROTHROMBIN TIME (PATIENT) 28.0 SECONDS 9.1-11.6 H [facility] INR 2.72 0.87-1.06 H [facility] ID Date Data Source [id number] 03/16/2021 10:07:00 AM EDT [facility] l TSYSORDER [id number] Name Value Range Interpretation Code Description Data Yany rce(s) Supporting Document(s) DIGOXIN 0.55 ng/ml 0.9-2.0 L [facility] ID Date Data Source [id number] 03/16/2021 10:04:00 AM EDT [facility] l TSYSORDER [id number] Name Value Range Interpretation Code Description Data Yany rce(s) Supporting Document(s) LIPASE 206 U/L 73-393 [facility] ID Date Data Source [id number] 03/16/2021 10:04:00 AM T [facility] TSYSORDER [id number] Name Value Range Interpretation Code Description Data Yany rce(s) Supporting Document(s) GLUCOSE 100 mg/dL 74-106 [facility] BLOOD UREA NITROGEN 17 mg/dL 7-18 [facility] CREATININE 0.97 mg/dL 0.7-1.3 [facility] SODIUM 144 mmol/L 136-145 [facility] POTASSIUM 3.7 mmol/L 3.5-5.1 [facility] CHLORIDE 105 mmol/L 98-107 [facility] CO2 29 mmol/L 21-32 [facility] CALCIUM 8.3 mg/dL 8.5-10.1 [facility] ANION GAP 10.0 mmol/L 5-12 [facility] GLOMERULAR FILTRATION RATE 76 mL/min [facility] GFR IS CALCULATED IN mL/min/1.73m2 MARCELINO L FUNCTION: >90MILDLY DECREASED: 60-89MILDY TO MODERATELY DECREASED: 45-59 MODERATELY TO SEVERELY DECREASED: 30-44SEVERELY DECREASED: 15-29RENAL FAILURE: <15 AST 31 U/L 15-37 [facility] ALT 33 U/L 12-78 [facility] ALKALINE PHOSPHATASE 161 U/L 46-116 H [facility] pital TOTAL BILIRUBIN 0.4 mg/dL 0.2-1.0 [facility] TOTAL PROTEIN 7.3 g/dl 6.4-8.2 [facility] ALBUMIN 3.7 gm/dL 3.4-5.0 [facility] ID Date Data Source [id number] 01/01/2021 08:09:00 AM EDT [facility] l Name Value Range Interpretation Code Description Data Yany rce(s) Supporting Document(s) VITAMIN B12 506 pg/mL [id number] [facility] Performed at: RN - [facility] [address] [id number] Director: Claire Hernandez MD, Phone: [phone] ID Date Data Source [id number] 01/01/2021 08:07:00 AM EDT [facility] Name Value Range Interpretation Code Description Data Yany rce(s) Supporting Document(s) Vitamin B12 506 pg/mL [id number] [facility] ID Date Data Source [id number] 12/31/2020 [facility]:52[facility] Name Value Range Interpretation Code Description Data Yany rce(s) Supporting Document(s) FREE T4 0.8 ng/dL 0.76-1.46 [facility] ID Date Data Source [id number] 12/31/2020 01:52:00 PM [facility] l Name Value Range Interpretation Code Description Data Yany rce(s) Supporting Document(s) TSH 1.929 uIU/mL 0.360-3.740 [facility] ID Date Data Source [id number] 12/31/2020 01:23:00 PM [facility] Name Value Range Interpretation Code Description Data Yany rce(s) Supporting Document(s) B-TYPE NATRIURETIC PEPTIDE 1090 pg/ml 0-125 *[facility] ID Date Data Source [id number] 12/31/2020 01:23:[facility] Name Value Range Interpretation Code Description Data Yany rce(s) Supporting Document(s) DILANTIN/PHENYTOIN 9.6 ug/ml 10.0-20.0 [facility] sera ID Date Data Source [id number] 12/31/2020 01:23:00 PM [facility] l Name Value Range Interpretation Code Description Data Yany rce(s) Supporting Document(s) DIGOXIN 0.79 ng/ml 0.9-2.0 [facility] ID Date Data Source [id number] 12/31/2020 01:23:00 PM EDT [facility] Name Value Range Interpretation Code Description Data Yany rce(s) Supporting Document(s) PHENOBARBITOL 31.4 ug/ml 15.0-40.0 [facility] ID Date Data Source [id number] 12/31/2020 01:23:00 PM EDT [facility] l Name Value Range Interpretation Code Description Data Yany rce(s) Supporting Document(s) CHOLESTEROL 181 mg/dL 0-200 [facility] TRIGLYCERIDES 111 mg/dL 0-150 [facility] LDL CHOLESTEROL 113 mg/dL 0-100 H [facility] HDL CHOLESTEROL 46 mg/dL 40-60 [facility] CHOL/HDL RATIO 3.9 0.0-5.0 [facility] ID Date Data Source [id number] 12/31/2020 01:23:00 PM EDT [facility] l Name Value Range Interpretation Code Description Data Yany rce(s) Supporting Document(s) GLUCOSE 94 mg/dL 74-106 [facility] BLOOD UREA NITROGEN 17 mg/dL 7-18 [facility] CREATININE 1.00 mg/dL 0.7-1.3 [facility] SODIUM 144 mmol/L 136-145 [facility] POTASSIUM 4.5 mmol/L 3.5-5.1 [facility] CHLORIDE 106 mmol/L 98-107 [facility] CO2 31 mmol/L 21-32 [facility] CALCIUM 8.6 mg/dL 8.5-10.1 [facility] ANION GAP 7.0 mmol/L 5-12 [facility] GLOMERULAR FILTRATION RATE 74 mL/min [facility] GFR IS CALCULATED IN mL/min/1.73m2 MARCELINO L FUNCTION: >90MILDLY DECREASED: 60-89MILDY TO MODERATELY DECREASED: 45-59 MODERATELY TO SEVERELY DECREASED: 30-44SEVERELY DECREASED: 15-29RENAL FAILURE: <15 AST 28 U/L 15-37 [facility] ALT 29 U/L 12-78 [facility] ALKALINE PHOSPHATASE 155 U/L 46-116 H [facility] pital TOTAL BILIRUBIN 0.4 mg/dL 0.2-1.0 [facility] TOTAL PROTEIN 6.7 g/dl 6.4-8.2 [facility] ALBUMIN 3.8 gm/dL 3.4-5.0 [facility] ID Date Data Source [id number] 12/31/2020 11:29:00 AM EDT [facility] Name Value Range Interpretation Code Description Data Yany rce(s) Supporting Document(s) NEUTROPHILS 34 % 50-80 L [facility] LYMPHOCYTE 53 % 25-50 H [facility] MONOCYTE 3 % 2.0-10.0 [facility] Eosinophils [#/volume] in Blood by Automated count 1 % 0-5 [facility] BASOPHIL 1 % 0-2 [facility] ATYPICAL LYMPH 8 [facility] DIFFERENTIAL COMMENT . [facility] MANY SMUDGE CELLS NOTED PLATELET ESTIMATE DECREASED NORMAL [facility] RBC MORPHOLOGY EXPECTED RESULTS:NORMAL= NORMOCHROMIC, NORMOCYTIC CELLSAbnormal Morphologic Findings > or = to 1+ are reported.Clinicopathologic correlation by the provider is required todetermine significance of finding. ID Date Data Source [id number] 12/31/2020 11:44:00 AM EDT [facility] Name Value Range Interpretation Code Description Data Yany rce(s) Supporting Document(s) WHITE BLOOD COUNT 25.5 K/mm3 4.0-10.0 H [facility] RED BLOOD COUNT 4.10 M/mm3 4.50-6.00 L [facility] HEMOGLOBIN 13.2 gm/dL 14.0-18.0 [facility] HEMATOCRIT 39.0 % 42.0-54.0 [facility] MEAN CELL VOLUME 95.1 fl 80-96 [facility] MEAN CORPUSCULAR HEMOGLOBIN 32.2 pg 27.0-31.0 [facility] MEAN CORPUSCULAR HGB CONC 33.8 g/dl 32.0-36.0 [facility] RED CELL DISTRIBUTION WIDTH 13.1 % 10.0-14.5 [facility] PLATELET COUNT 161 K/mm3 172-450 L [facility] ID Date Data Source [id number] 12/31/2020 08:36:00 AM EDT [facility] ([facility] [employer] [facility]) Name Value Range Interpretation Code Description Data [facility] rce(s) Supporting Document(s) Thyroid Stimulating Hormone 1.929 ME [facility] ([facility]) Free T4 0.8 [facility] ([facility]) Natriuretic peptide.B prohormone N-Terminal [Mass/volu me] in Serum or Plasma 1090 [facility] ([employer] [facility]) ID Date Data Source [id number] 12/31/2020 08:36:00 AM EDT [facility] ([facility]) Name Value Range Interpretation Code Description Data Yany rce(s) Supporting Document(s) Triglycerides 111 [facility] ([facility]) HDL 46 40-60 [facility] ([facility]) Cholesterol 181 0-200 [facility] ([facility]) Chol/HDL Ratio 3.9 [facility] ([facility]) Cholesterol in LDL [Mass/volume] in Serum or Plasma by calculation 11 3 [facility] ([facility]) ID Date Data Source [id number] 12/31/2020 08:36:00 AM EDT [facility] ([facility]) Name Value Range Interpretation Code Description Data Yany rce(s) Supporting Document(s) Albumin [Mass/volume] in Serum or Plasma 3.8 [facility] ([facility]) Alanine aminotransferase [Enzymatic activity/volume] in Serum or Pl asma 29 [facility] ([facility]) Carbon dioxide, total [Moles/volume] in Serum or Plasma 31 [facility] ([facility]) Calcium [Mass/volume] in Serum or Plasma 8.6 [facility] ([facility]) Alkaline phosphatase [Enzymatic activity/volume] in Serum or Plasma 1 55 [facility] ([facility]) Potassium [Moles/volume] in Serum or Plasma 4.5 [facility] ([facility]) Chloride [Moles/volume] in Serum or Plasma 106 [facility] ([facility]) Protein [Mass/volume] in Serum or Plasma 6.7 [facility] ([facility]) Sodium 144 [facility] ([facility]) Aspartate aminotransferase [Enzymatic activity/volume] in Serum or Plasma 28 [facility] ([facility]) Glucose 94 74-106 [facility] ([facility]) Urea nitrogen [Mass/volume] in Serum or Plasma 17 [facility] ([facility]) Creatinine For GFR 1.00 [facility] ([facility]) ID Date Data Source [id number] 12/31/2020 08:36:00 AM EDT [facility]) Name Value Range Interpretation Code Description Data Yany rce(s) Supporting Document(s) Red Blood Count 4.10 4.50-6.00 [facility] ([facility]) Platelets 161 172-450 [facility] ([facility]) White Blood Count 25.5 4.0-10.0 [facility] ([facility]) Hemoglobin 13.2 14.0-18.0 [facility] ([facility]) Hematocrit 39.0 42.0-54.0 [facility] ([facility]) ID Date Data Source [id number] 09/07/2020 12:58:00 PM EDT [facility] FAX [phone] Name Value Range Interpretation Code Description Data Yany rce(s) Supporting Document(s) PSA DIAGNOSIS 0.40 ng/mL 0.0-4.0 [facility] THIS ASSAY WAS PERFORMED ON THE MOVL EXL USINGTHE B- GALACTOSIDASE/CRPG METHODOLOGY. THE PSA IS NOT AN ABSOLUTE TEST FOR MALIGNANCY. IT SHOULD BEUSED IN CONJUNCTION WITH INFORMATION AVAILABLE FROM THECLINICAL EVALUATION AND OTHER DIAGNOSTIC PROCEDURES. VALUES OBTAINED WITH DIFFERENT ASSAY METHODS CANNOT BE USEDINTERCHANGEABLY. ID Date Data Source [id number] 06/28/2020 02:22:00 PM EST [facility] ([facility]) Name Value Range Interpretation Code Description Data Yany rce(s) Supporting Document(s) Cholesterol 198 0-200 [facility] ([facility]) Triglycerides 107 [facility] ([facility]) HDL 48 40-60 [facility] Cholesterol in LDL [Mass/volume] in Serum or Plasma by calculation 12 9 [facility] ([facility]) Chol/HDL Ratio 4.1 [facility] ([facility]) ID Date Data Source [id number] 06/28/2020 02:22:00 PM EST [facility] ([facility]) Name Value Range Interpretation Code Description Data Yany rce(s) Supporting Document(s) Albumin [Mass/volume] in Serum or Plasma 4.0 [facility] ([facility]) Calcium [Mass/volume] in Serum or Plasma 9.4 [facility] ([facility]) Alanine aminotransferase [Enzymatic activity/volume] in Serum or Pl asma 29 [facility] ([facility]) Chloride [Moles/volume] in Serum or Plasma 101 [facility] ([facility]) Carbon dioxide, total [Moles/volume] in Serum or Plasma 31 [facility] ([facility]) Alkaline phosphatase [Enzymatic activity/volume] in Serum or Plasma 1 46 [facility] ([facility]) Protein [Mass/volume] in Serum or Plasma 7.4 [facility] ([facility]) Potassium [Moles/volume] in Serum or Plasma 4.3 [facility] ([facility]) Aspartate aminotransferase [Enzymatic activity/volume] in Serum or Plasma 30 [facility]) Sodium 140 [facility] ([facility]) Urea nitrogen [Mass/volume] in Serum or Plasma 19 [facility] ([facility]) Glucose 90 74-106 [facility] Creatinine For GFR 1.07 [facility] ([facility]) ID Date Data Source [id number] 06/28/2020 02:22:00 PM EST [facility] ([facility]) Name Value Range Interpretation Code Description Data Yany rce(s) Supporting Document(s) Free T4 0.8 [facility] ([facility]) Thyroid Stimulating Hormone 2.763 ME [facility] ([facility]) ID Date Data Source [id number] 06/29/2020 08:10:00 AM EST [facility] Name Value Range Interpretation Code Description Data Yany rce(s) Supporting Document(s) VITAMIN B12 604 pg/mL [id number] [facility] Performed at: RN - [facility] [address] [id number] Director: Claire Hernandez MD, Phone: [phone] ID Date Data Source [id number] 06/29/2020 08:06:00 AM EST [facility] Name Value Range Interpretation Code Description Data Yany rce(s) Supporting Document(s) Vitamin B12 604 pg/mL [id number] [facility] ID Date Data Source [id number] 06/28/2020 03:27:00 PM EST [facility] Name Value Range Interpretation Code Description Data Yany rce(s) Supporting Document(s) B-TYPE NATRIURETIC PEPTIDE 686 pg/ml 0-125 *[facility] ID Date Data Source [id number] 06/28/2020 03:27:00 PM EST [facility] Name Value Range Interpretation Code Description Data Yany rce(s) Supporting Document(s) DILANTIN/PHENYTOIN 7.8 ug/ml 10.0-20.0 L [facility] sera ID Date Data Source [id number] 06/28/2020 03:27:00 PM EST [facility] Name Value Range Interpretation Code Description Data Yany rce(s) Supporting Document(s) PHENOBARBITOL 28.4 ug/ml 15.0-40.0 [facility] ID Date Data Source [id number] 06/28/2020 03:27:00 PM EST [facility] Name Value Range Interpretation Code Description Data Yany rce(s) Supporting Document(s) DIGOXIN 0.80 ng/ml 0.9-2.0 L [facility] ID Date Data Source [id number] 06/28/2020 03:27:00 PM EST [facility] l Name Value Range Interpretation Code Description Data Yany rce(s) Supporting Document(s) CHOLESTEROL 198 mg/dL 0-200 [facility] TRIGLYCERIDES 107 mg/dL 0-150 [facility] LDL CHOLESTEROL 129 mg/dL 0-100 [facility] [facility] HDL CHOLESTEROL 48 mg/dL 40-60 [facility] CHOL/HDL RATIO 4.1 0.0-5.0 [facility] ID Date Data Source [id number] 06/28/2020 03:27:00 PM EST [facility] l Name Value Range Interpretation Code Description Data Yany rce(s) Supporting Document(s) GLUCOSE 90 mg/dL 74-106 [facility] BLOOD UREA NITROGEN 19 mg/dL 7-18 H [facility] ital CREATININE 1.07 mg/dL 0.7-1.3 [facility] SODIUM 140 mmol/L 136-145 [facility] POTASSIUM 4.3 mmol/L 3.5-5.1 [facility] CHLORIDE 101 mmol/L 98-107 [facility] CO2 31 mmol/L 21-32 [facility] CALCIUM 9.4 mg/dL 8.5-10.1 [facility] ANION GAP 8.0 mmol/L 5-12 [facility] GLOMERULAR FILTRATION RATE 68 mL/min [facility] GFR IS CALCULATED IN mL/min/1.73m2 MARCELINO L FUNCTION: >90MILDLY DECREASED: 60-89MILDY TO MODERATELY DECREASED: 45-59 MODERATELY TO SEVERELY DECREASED: 30-44SEVERELY DECREASED: 15-29RENAL FAILURE: <15 AST 30 U/L 15-37 [facility] ALT 29 U/L 12-78 [facility] ALKALINE PHOSPHATASE 146 U/L 46-116 [facility] pital TOTAL BILIRUBIN 0.5 mg/dL 0.2-1.0 [facility] TOTAL PROTEIN 7.4 g/dl 6.4-8.2 [facility] ALBUMIN 4.0 gm/dL 3.4-5.0 [facility] ID Date Data Source [id number] 06/28/2020 02:59[facility] Name Value Range Interpretation Code Description Data Yany rce(s) Supporting Document(s) TSH 2.763 uIU/mL 0.36-3.74 [facility] ID Date Data Source [id number] 06/28/2020 02:59:00 PM [facility] l Name Value Range Interpretation Code Description Data Yany rce(s) Supporting Document(s) FREE T4 0.8 ng/dL 0.76-1.46 [facility] ID Date Data Source [id number] 06/28/2020 02:40:00 PM [facility] l Name Value Range Interpretation Code Description Data Yany rce(s) Supporting Document(s) PROTHROMBIN TIME (PATIENT) 16.7 SECONDS 9.1-11.6 H [facility] INR 1.62 0.87-1.06 H [facility] Procedure Social History Code Duration Value Status Description Data Source(s ) Smoking 03/28/2021 12:00:00 AM EDT Never Smoker completed Never S ninoska eCW1 ([facility]) Alcohol intake 03/19/2021 12:00:00 AM EDT Lifetime non-drinker (finding) completed Lifetime non-drinker (finding) [facility] stem Tobacco use and exposure 03/19/2021 12:00:00 AM EDT Never used co mpleted Never used [facility] Smoking 03/19/2021 12:00:00 AM EDT Never smoker completed Never s ninoska [facility] Smoking 02/06/2021 12:00:00 AM EDT Patient has never smoked co mpleted Patient has never smoked MEDENT ([facility]) Smoking 01/08/2021 12:00:00 AM EDT Never Smoker completed Never S moker eCW1 ([facility]) Smoking 01/08/2021 12:00:00 AM EDT Never Smoker completed Never S moker eCW1 ([facility]) Smoking 07/11/2020 12:00:00 AM EST Never Smoker completed Never S moker eCW1 ([facility]) Smoking 07/11/2020 12:00:00 AM EST Never Smoker completed Never S moker eCW1 ([facility]) Smoking 07/11/2020 12:00:00 AM EST Never Smoker completed Never S moker eCW1 ([facility]) Smoking 07/11/2020 12:00:00 AM EST Never Smoker completed Never S moker eCW1 ([facility]) Vital Signs ID Date Data Source UNK Name Value Range Interpretation Code Description Data Source(s) Body weight 177.00 [lb_av] 177.00 [lb_av] MEDEN T ([facility]) Body height 66 [in_i] 66 [in_i] MEDENT ([facility]) 5'6" Body mass index (BMI) [Ratio] 28.6 kg/m2 28.6 k g/m2 MEDENT ([facility]) Heart rate 87 /min 87 /min MEDENT ([facility]) Systolic blood pressure--sitting 144 mm[Hg] 144 mm[Hg] MEDENT ([facility]) Ra, large cuff Diastolic blood pressure--sitting 84 mm[Hg] 84 mm[Hg] MEDENT ([facility]) Ra, large cuff Body height 63.5 [in_i] 63.5 [in_i] eCW1 ([facility]) Body weight 176 [lb_av] 176 [lb_av] eCW1 ([facility]) Body mass index (BMI) [Ratio] 30.68 kg/m2 30.68 kg/m2 eCW1 ([facility]) Body temperature 98.0 [degF] 98.0 [degF] eCW1 ( [facility]) Heart rate 78 /min 78 /min eCW1 ([facility]) Oxygen saturation in Arterial blood by Pulse oximetry 93 % 93 % eCW1 ([facility]) Systolic blood pressure 130 mm[Hg] 130 mm[Hg] e CW1 ([facility]) Diastolic blood pressure 80 mm[Hg] 80 mm[Hg] eCW1 ([facility]) Systolic blood pressure 144 mm[Hg] 144 mm[Hg] [facility] Diastolic blood pressure 60 mm[Hg] 60 mm[Hg] [facility] Heart rate 85 /min 85 /min [facility] Body temperature 36.28 Danielle 36.28 Danielle [facility] Respiratory rate 18 /min 18 /min [facility] Oxygen saturation in Arterial blood by Pulse oximetry 99 % 99 % [facility] Body height 162.5 cm 162.5 cm [facility] Body weight 83.915 kg 83.915 kg [facility] Body mass index (BMI) [Ratio] 31.78 kg/m2 31.78 kg/m2 [facility] Body weight 173.00 [lb_av] 173.00 [lb_av] HUMA T ([facility]) Body height 66 [in_i] 66 [in_i] MEDENT ([facility]) 5'6" Body mass index (BMI) [Ratio] 27.9 kg/m2 27.9 k g/m2 MEDENT ([facility]) Systolic blood pressure--sitting 124 mm[Hg] 124 mm[Hg] MEDENT ([facility]) Ra, medium cuff Diastolic blood pressure--sitting 80 mm[Hg] 80 mm[Hg] MEDENT ([facility]) Ra, medium cuff Heart rate 70 /min 70 /min MEDENT ([facility]) Diastolic blood pressure--sitting 86 mm[Hg] 86 mm[Hg] MEDENT ([facility]) Ra, large cuff Body weight 176.00 [lb_av] 176.00 [lb_av] HUMA T ([facility]) Body height 66 [in_i] 66 [in_i] MEDKRYSTYNA ([facility]) 5'6" Body mass index (BMI) [Ratio] 28.4 kg/m2 28.4 k g/m2 MEDKRYSTYNA ([facility]) Systolic blood pressure--sitting 158 mm[Hg] 158 mm[Hg] MEDENT ([facility]) Ra, large cuff Body weight 195 [lb_av] 195 [lb_av] eCW1 ([facility]) Body height 64 [in_i] 64 [in_i] eCW1 ([facility]) Body mass index (BMI) [Ratio] 33.47 kg/m2 33.47 kg/m2 eCW1 ([facility]) Heart rate 89 /min 89 /min eCW1 ([facility]) Respiratory rate 19 /min 19 /min eCW1 ([facility]) Body temperature 97.8 [degF] 97.8 [degF] eCW1 ( [facility]) Systolic blood pressure 164 mm[Hg] 164 mm[Hg] e CW1 ([facility]) Diastolic blood pressure 94 mm[Hg] 94 mm[Hg] eCW1 ([facility]) Body height 63.5 [in_i] 63.5 [in_i] eCW1 ([facility]) Body weight 176 [lb_av] 176 [lb_av] eCW1 ([facility]) Body mass index (BMI) [Ratio] 30.68 kg/m2 30.68 kg/m2 eCW1 ([facility]) Body temperature 98.1 [degF] 98.1 [degF] eCW1 ( [facility]) Heart rate 72 /min 72 /min eCW1 ([facility]) Oxygen saturation in Arterial blood by Pulse oximetry 97 % 97 % eCW1 ([facility]) Systolic blood pressure 128 mm[Hg] 128 mm[Hg] e CW1 ([facility]) Diastolic blood pressure 72 mm[Hg] 72 mm[Hg] eCW1 ([facility]) Body height 66 [in_i] 66 [in_i] MEDENT ([facility]) 5'6" Body mass index (BMI) [Ratio] 29.7 kg/m2 29.7 k g/m2 MEDENT ([facility]) Body weight 184.00 [lb_av] 184.00 [lb_av] MEDEN T ([facility]) Heart rate 69 /min 69 /min MEDENT ([facility]) Systolic blood pressure--sitting 130 mm[Hg] 130 mm[Hg] MEDENT ([facility]) Ra, large cuff Diastolic blood pressure--sitting 78 mm[Hg] 78 mm[Hg] MEDENT ([facility]) Ra, large cuff Body height 63.5 [in_i] 63.5 [in_i] eCW1 ([facility]) Body weight 188 [lb_av] 188 [lb_av] eCW1 ([facility]) Body mass index (BMI) [Ratio] 32.78 kg/m2 32.78 kg/m2 W1 ([facility]) Body temperature 97.6 [degF] 97.6 [degF] eCW1 ( [facility]) Heart rate 68 /min 68 /min eCW1 ([facility]) Respiratory rate 16 /min 16 /min eCW1 ([facility]) Systolic blood pressure 122 mm[Hg] 122 mm[Hg] e CW1 ([facility]) Diastolic blood pressure 76 mm[Hg] 76 mm[Hg] eCW1 ([facility]) Patient Treatment Plan of Care Planned Activity Planned Date Details Description Data Source (s) Warfarin Sodium 1 MG Oral Tablet [facility] Warfarin Sodium 6 MG Oral Tablet [facility] Spironolactone 25 MG Oral Tablet [facility] Furosemide 20 MG Oral Tablet [facility] Furosemide 40 MG Oral Tablet [facility] Aspirin 81 MG Delayed Release Oral Tablet [facility]
--- NOTE | 2021-04-26 19:57 | REPVR ---
PROCEDURE INFORMATION: Exam: CTA Chest With Contrast Exam date and time: 04/26/2021 6:32 PM Age: 70 years old Clinical indication: Shortness of breath; Additional info: SOB; Lle dvt; R/O pe TECHNIQUE: Imaging protocol: Computed tomographic angiography of the chest with contrast. 3D rendering (Not supervised by radiologist): MIP and/or 3D reconstructed images were created by the technologist. Radiation optimization: All CT scans at this facility use at least one of these dose optimization techniques: automated exposure control; mA and/or kV adjustment per patient size (includes targeted exams where dose is matched to clinical indication); or iterative reconstruction. Contrast material: ISOVUE 370; Contrast volume: 75 ml; Contrast route: INTRAVENOUS (IV); COMPARISON: CT Chest with contrast 04/03/2021 11:01 AM FINDINGS: Tubes, catheters and devices: Sternal wires. Pulmonary arteries: Pulmonary arteries enlarged measuring 4.5 cm. Clinical correlation with pulmonary arterial hypertension. Aorta: Ectatic ascending aorta measuring 4.5 cm. Lungs: Bilateral scattered nodules in the lungs with no significant change from prior study. Pleural spaces: Trace bilateral pleural effusions. Heart: Cardiomegaly. Lymph nodes: Unremarkable. No enlarged lymph nodes. Liver: 4.8 cm hypodense lesion in the right hepatic lobe likely metastatic. A 2nd hypodense lesion in the visualized right hepatic lobe measuring 1.8 cm. Bones/joints: Extensive degenerative changes of the spine. Soft tissues: Unremarkable. IMPRESSION: No pulmonary embolism. Ectatic ascending aorta measuring 4.5 cm. Pulmonary artery is enlarged measuring 4.5 cm. Clinical correlation with pulmonary arterial hypertension. Multiple scattered nodules in bilateral lungs representing metastatic disease. Trace bilateral pleural effusions. Severe cardiomegaly. Electronically signed by: Reese Maguire On 04/26/2021 19:57:01 PM
[2021-04-26] MEDS ORDERED: HEPARIN SOD (PORCINE) 5000UNITS/ML 1ML VIAL/SYRINGE IV ONE (20:25)
[2021-04-26] MEDS ORDERED: HEPARIN DRIP 25,000 UNITS in IV 1 EA IV SCH ×2 (20:25→21:30)
[2021-04-26] MEDS ORDERED: DIGO0.253 PO (20:55)
[2021-04-26] MEDS ORDERED: HOME MED LIST COMPLETE! XX SCH (20:55)
[2021-04-26] MEDS ORDERED: HEPARIN SOD (PORCINE) 5000UNITS/ML 1ML VIAL/SYRINGE IV PRN (21:30)
--- OUTSIDE RECORDS SUMMARY | 2021-04-26 21:51 | CCD ---
Author Author [facility] Organization [facility] Address Unknown Phone Unavailable Care Team Providers Care Chip Mucker Name Role Phone Pavelock, Azael Unavailable Unavailable [...] Carmel Judith WHNP Unavailable Unavailable Recore, Carmel Juidth WHNP Unavailable Unavailable Recore, Carmel Judith WHNP [...] Unavailable Unavailable LOGANDarlene Montenegro MD Unavailable Unavailable LOGANDarlnee Montenegro MD Unavailable Unavailable LOGANDarlene Montenegro MD Unavailable Unavailable Darlene LOGAN MD Unavailable Unavailable LOGANDarlene Montenegro MD Unavailable Unavailable LOGANDarlene Montenegro MD Unavailable Unavailable Darlene LOGAN MD Unavailable Unavailable Darlene LOGAN MD Unavailable Unavailable Darlene LOGAN MD Unavailable Unavailable Darelne LOGAN MD Unavailable Unavailable LOGANDarlene Montenegro MD [...] MD Unavailable Unavailable BALLARDVishal MD Unavailable Unavailable BALLARDVishla MD Unavailable Unavailable BALLARDVishal MD Unavailable Unavailable [...] Unavailable DETRAGLIA, VALENTINA MD Unavailable Unavailable Zamzam, Cygnet MD Unavailable Unavailable Zamzam, Cygnet MD Unavailable Unavailable Zamzam, Cygnet MD Unavailable Unavailable Zamzam, Cygnet MD Unavailable Unavailable Zamzam, Cygnet MD Unavailable Unavailable Zamzam, Cygnet MD Unavailable Unavailable Zamzam, Sofy MD Unavailable Unavailable Zamzam, Cygnet MD Unavailable Unavailable Zamzam, Sofy MD Unavailable Unavailable Zamzam, Cygnet MD Unavailable Unavailable Zamzam, Sofy MD Unavailable Unavailable Zamzam, Cygnet MD Unavailable Unavailable Zamzam, Cygnet MD Unavailable Unavailable Zamzam, Cygnet MD Unavailable Unavailable Zamzam, Cygnet MD Unavailable Unavailable Zamzam, Sofy MD Unavailable Unavailable Zamzam, Cygnet MD Unavailable Unavailable Zamzam, Cygnet MD Unavailable Unavailable Zamzam, Cygnet MD Unavailable Unavailable Zamzam, Cygnet MD Unavailable Unavailable Zamzam, Cygnet MD Unavailable Unavailable Zamzam, Sofy MD Unavailable Unavailable Zamzam, Cygnet MD Unavailable Unavailable Zamzam, Cygnet MD Unavailable Unavailable Zamzam, Cygnet MD Unavailable Unavailable Zamzam, Sofy MD Unavailable Unavailable Zamzam, Cygnet MD Unavailable Unavailable Zamzam, Cygnet MD Unavailable Unavailable Zamzam, Cygnet MD Unavailable Unavailable Zamzam, Cygnet MD Unavailable Unavailable Zamzam, Sofy MD Unavailable Unavailable Zamzam, Sofy MD Unavailable Unavailable Zamzam, Sofy MD Unavailable Unavailable Zamzam, Sofy MD Unavailable Unavailable Zamzam, Sofy MD Unavailable Unavailable Zamzam, Sofy MD Unavailable Unavailable Zamzam, Cygnet MD Unavailable Unavailable Zamzam, Cygnet MD Unavailable Unavailable Zamzam, Cygnet MD Unavailable Unavailable Zamzam, Sofy MD Unavailable Unavailable Zamzam, Sofy MD Unavailable Unavailable Zamzam, Cygnet MD Unavailable Unavailable Zamzam, Cygnet MD Unavailable Unavailable Zamzam, Sofy MD Unavailable [...] is protected by Article 27-F of the [facility] Public Health law. If you continue you may have access to information: Regarding HIV / AIDS; Provided by facilities licensed or operated by the [facility] Office of Mental Health; or Provided by the [facility] Office for People With Developmental Disabilities. If such information is present, then the following [facility] mandated warning applies: This information has been [...] law may result in a fine or fdc sentence or both. A general authorization for the release of medical or other information is NOT sufficient authorization for further disc losure. Allergies and Adverse Reactions Type Description Substance Reaction Status Data Source(s ) Propensity to adverse reactions NO KNOWN ALLERGIES NO KNOWN ALLERGIES [facility] Propensity to adverse reactions NO ALLERGIES ON FILE NO ALLERGIES ON FILE [facility] Family History Family Member Name Family Member Gender Family Member Status Date o f Status Description Data Source(s) Unknown Unknown Problem [facility] ([facility] Unknown Male Problem [facility] ([facility], ) () Encounters Encounter Providers Location Date Indications Data Source(s ) Outpatient Attender: KATIE MORENO [place] Main Office 03/29/2021 0 9:30:00 AM EDT MED[facility] ([facility]) Outpatient [address] [place] [address] 03/28/2021 12:00:00 AM EDT eCW1 ([facility]) OUTPATIENT Attender: Sultana Zamzam GIL 5F-6F 03/22/2021 02:55:48 PM EDT [facility] Outpatient [address] [place] [address] 03/21/2021 12:00:00 AM EDT eCW1 ([facility]) INPATIENT Attender: MYLES CRAFT MD 5F-GX 03/18/2021 03:44:26 PM EDT [facility] INPATIENT Attender: JUVENAL DEWEY MD 5F-GX 03/18/2021 10:43:19 AM EDT [facility] INPATIENT Attender: SMOOTH MOY MD Attender: AUGUSTINE LAZARO MDAttender: Chetna Greene MDAttender: CHETNA GREENE MDAdmitter: AUGUSTINE LAZARO MDConsultant: Sultana Wyman MDConsultant: VALENTINA DETRAGLIA MDConsultant: VALENTINA KATELINAGLIA MDConsultant: SHIRA BALLARD MDConsultant: Azael Mercedesmanoj 5F-1E 03/16/2021 07:50:00 PM EDT - 03/20/2021 02:15:00 PM EDT [facility] Patient discharged. Emergency Attender: SUZAN HITCHCOCK PAReferrer: Marcus Estevez MD EMERGENCY ROOM-ER 03/16/2021 09:56:00 AM EDT - 03/16/2021 05:24:[address] [facility] Patient discharged. Outpatient Attender: KATIE JAMIL Main Office 03/12/2021 0 2:00:00 PM EDT MED[facility] ([facility]) Office Visit Attender: BREANNE LOGAN MD Main Office 02/22/2021 12:29:0 0 PM EDT [facility] ([facility]) Outpatient Attender: KATIE JAMIL Main Office 02/06/2021 0 1:00:00 PM EDT [facility] ([facility]) Office Visit Attender: BREANNE LOGAN MD Main Office 01/22/2021 04:28:0 0 PM EDT MED[facility] ([facility]) Outpatient [address] [id number] 01/18/2021 12:00:00 AM EDT eCW1 ([facility]) Outpatient [address] [place] [address] 01/08/2021 12:00:00 AM EDT eCW1 ([facility]) Outpatient Attender: Marcus RICHEYeferrer: Marcus hernandez MD EMERGENCY ROOM-LABOTHPROV 12/31/2020 11:22:00 AM EDT - 12/31/2020 11:22:[address] [facility] Office Visit Attender: BREANNE LOGAN MD Main Office 12/20/2020 04:36:0 0 PM EDT [facility] ([facility]) Office Visit Attender: BREANNE LOGAN MD Main Office 11/21/2020 12:35:0 0 PM EDT [facility] ([facility]) Office Visit Attender: BREANNE LOGAN MD Main Office 11/01/2020 07:49:0 0 AM EDT [facility] ([facility]) Office Visit Attender: BREANNE LOGAN MD Main Office 09/26/2020 02:54:0 0 PM EDT [facility] ([facility]) Outpatient Attender: Kai RICHEYeferrer: Nikolay Estevez MD EMERGENCY ROOM-LABOTHPROV 09/07/2020 10:07:00 AM EDT - 09/07/2020 10:07:00 AM [facility] Office Visit Attender: BREANNE LOGAN MD Main Office 08/24/2020 10:25:0 0 AM EST [facility] ([facility]) Outpatient [address] [place] [address] 08/22/2020 12:00:00 AM EST eCW1 ([facility]) Outpatient [address] [place] [address] 08/22/2020 12:00:00 AM EST eCW1 ([facility]) Outpatient [address] [place] [address] 08/16/2020 12:00:00 AM EST eCW1 ([facility]) Outpatient Attender: KATIE JAMIL Main Office 08/09/2020 1 2:00:00 PM EST [facility] ([facility]) Office Visit Attender: BREANNE LOGAN MD Main Office 07/18/2020 08:08:0 0 AM EST [facility] ([facility]) Outpatient [address] [place] [address] 07/10/2020 12:00:00 AM EST eCW1 ([facility]) Outpatient [address] [place] [address] 07/06/2020 12:00:00 AM EST eCW1 ([facility]) Outpatient Attender: Marcus RICHEYeferrer: Marcus hernandez MD EMERGENCY ROOM-LABOTHPROV 06/28/2020 01:53:00 PM EST - 06/28/2020 01:53:00 PM [facility] Office Visit Attender: BREANNE LOGAN MD Main Office 05/25/2020 09:33:0 0 AM EST [facility] Outpatient [address] [place] [address] 05/14/2020 12:00:00 AM EST eCW1 ([facility]) Office Visit Attender: BREANNE LOGAN MD Main Office 04/18/2020 11:24:0 0 AM EDT [facility] ([facility]) Office Visit Attender: BREANNE LOGAN MD Main Office 03/16/2020 03:07:0 0 PM EDT [facility] ([facility]) Outpatient [address] [place] [address] 03/07/2020 12:00:00 AM EDT [facility]CW1 [facility] Outpatient Attender: Carmel PATELNPReferre r: Marcus Estevez MD EMERGENCY ROOM-LABOTHPROV 01/05/2020 10:43:00 AM EDT - 01/05/2020 10:43:00 AM [facility] Outpatient Attender: Marcus Estevez MD 06/30/19 19 12:49:00 PM EST - 06/30/2018 12:49:00 PM [facility] Immunizations Vaccine Date Status Description Data Source(s) COVID Vaccine 2nd Dose (Pfizer) 08/12/2020 11:01:00 AM EST complete d eCW1 ([facility]) COVID Vaccine 2nd Dose (Pfizer) 08/12/2020 11:01:00 AM EST complete d eCW1 ([facility]) COVID Vaccine 2nd Dose (Pfizer) 08/12/2020 11:01:00 AM EST complete d eCW1 ([facility]) COVID-19 VACCINE Pfizer 08/12/2020 12:00:00 AM EST completed [facility] Vaccine Series Complete: YESThis Data wa s Submitted to [facility] Via [employer]. COVID Vaccine 1st Dose (Pfizer) 07/22/2020 11:01:00 AM EST complete d eCW1 ([facility]) COVID Vaccine 1st Dose (Pfizer) 07/22/2020 11:01:00 AM EST complete d eCW1 ([facility]) COVID Vaccine 1st Dose (Pfizer) 07/22/2020 11:01:00 AM EST complete d eCW1 ([facility]) COVID-19 VACCINE Pfizer 07/22/2020 12:00:00 AM EST completed [facility] Vaccine Series Complete: NOThis Data was Submitted to [facility] Via [employer]. PNEUMOCOCCAL 13-VALENT CONJUGATE VACCINE (DIPHTHERIA C RM)/PF 05/26/2020 12:00:00 AM EST completed [facility] INFLUENZA VACCINE QUADRIVALENT 2019- (65 YR UP)/MF59 C.1/PF 03/21/2020 12:00:00 AM EDT completed [facility] New in 2011. IIV4 03/20/2020 08:12:00 AM EDT completed eCW1 ([facility]) New in 2011. IIV4 03/20/2020 08:12:00 AM EDT completed eCW1 ([facility]) New in 2011. IIV4 03/20/2020 08:12:00 AM EDT completed eCW1 ([facility]) New in 2011. IIV4 03/20/2020 08:12:00 AM EDT completed eCW1 ([facility]) New in 2011. IIV4 03/20/2020 08:12:00 AM EDT completed eCW1 ([facility]) New in 2011. IIV4 03/20/2020 08:12:00 AM EDT completed eCW1 ([facility]) New in 2011. IIV4 03/20/2020 08:12:00 AM EDT completed eCW1 ([facility]) New in 2011. IIV4 03/20/2020 08:12:00 AM EDT completed eCW1 ([facility]) New in 2011. IIV4 03/20/2020 08:12:00 AM EDT completed eCW1 ([facility]) Medications Medication Brand Name Start Date Product [...] ORAL active [facility] ([facility]) 32.4 mg 02/03/2021 12:00:00 AM EDT tablet [...] time each day. 5 days a week [facility] Warfarin Sodium 1 MG Oral Tablet warfarin (COUMADIN) 1 mg tablet warfarin (COUMADIN) 1 mg tablet 7 mg oral aborted Take 7 mg by mouth 1 (one) time each day. 2 days a week [facility] Spironolactone 25 MG Oral Tablet spironolactone (ALDAC TONE) 25 mg tablet spironolactone (ALDACTONE) 25 mg tablet 12.5 mg oral aborted Take 12.5 mg by mouth 1 (one) time each day. [facility] Furosemide 40 MG Oral Tablet furosemide (LASIX) 40 mg tablet furosemide (LASIX) 40 mg tablet 40 mg oral aborted Ambrosio e 40 mg by mouth 1 (one) time each day. [facility] Furosemide 20 MG Oral Tablet furosemide (LASIX) 20 mg tablet furosemide (LASIX) 20 mg tablet 20 mg oral aborted Ambrosio e 20 mg by mouth 1 (one) time each day before lunch. AFTERNOON [facility] Aspirin 81 MG Delayed Release Oral Tablet aspirin 81 m g EC tablet aspirin 81 mg EC tablet 81 mg oral aborted Take 8 1 mg by mouth 1 (one) time each day. [facility] Insurance Providers Payer name Policy type / Coverage type Policy ID Covered green party ID Covered green party's relationship to [place] Policy [place] Plan Information [employer] Medicaid Comm Plan Commercial [id number] Self 1 [id number] U/HC Medicaid Comm Plan Commercial [id number] Self [id number] U/HC Medicaid Comm Plan Commercial [id number] Self 1 [id number] U/HC Medicaid Comm Plan Commercial [id number] Self 1 [id number] U/HC Medicaid Comm Plan Commercial [id number] Self [facility] MEDICARE DIVISION [id number] S [id number] [facility] MEDICARE DIVISION [id number] S [id number] [facility] MEDICARE DIVISION [id number] S [id number] MEDICARE [id number] SP [id number] M [facility] MEDICARE DIVISION [id number] S [id number] [place] [id number] S [id number] [place] [id number] S [id number] [place] [id number] S [id number] MEDICARE Med [id number] Self [id number] [place] [id number] S [id number] MEDICARE Medicare [id number] MEDICARE [id number] SP [id number] M MEDICAID [place] [id number] Self [id number] [place]ICAID [place] [id number] [facility] [id number] SP [id number] ANSI-Medicare Part B [id number] ANSI-Medicaid [id number] MEDICAID [id number] S [id number] Medicaid Medigap Part B [id number] 6.0 Self [id number] Medicaid Medigap Part B [id number] 6.0 Self [id number] Medicare (Part B) Medicare Primary [id number] Self 3 [id number] Medicaid Medigap Part B [id number] 6.0 Self [id number] Medicaid Medigap Part B [id number] 6.0 Self [id number] Medicare (Part B) Medicare Primary [id number] Self 1 [id number] Medicaid [place] Medigap Part B [id number] Self [id number] Medicare [facility] Medicare Primary [id number] Self [id number] Medicaid Medigap Part B [id number] 6.0 Self [id number] Medicaid Medigap Part B [id number] 6.0 Self [id number] Medicare (Part B) Medicare Primary [id number] Self 1 [id number] Medicaid Medigap Part B 1 1 [id number] 6.0 Self 1 1 Medicare (Part B) Medicare Primary [id number] Self Medicaid Medigap Part B 2 [id number] Self 2 1 Medicare Medicare Primary [id number] Self [employer] MEDICAID MCD HMO [id number] S [id number] SELF PAY 2 UNAVAILABLE 1 [place] B[place] 3 [id number] 1 [id number] [place] [id number] SP [id number] M [id number] MEDICARE [id number] SP [id number] Y31 MEDICAID [id number] S [id number] MEDICAID [id number] S [id number] [place] [id number] SP [id number] MEDICAID [id number] SP [id number] MEDICARE [id number] SP [id number] M [facility] [place] [id number] [facility] [place]-Med[place]are Part [place] [id number] [facility] [id number] [facility] [id number] [facility] [id number] [facility] [place] [id number] Medicaid Medigap Part B [id number] Self [id number] Medicaid Medigap Part B [id number] Self [id number] Medicare (Part B) Medicare Primary [id number] Self [id number] [facility] MED[facility] [id number] S [id number] [place]ICARE [place] [id number] S [id number] Problems, Conditions, and Diagnoses Code Display Name Description Problem Type Effective Dates Data Source(s) I10 Essential (primary) hypertension Essential (primary) h ypertension Diagnosis 03/20/2021 02:00:40 PM EDT [facility] K92.2 Gastrointestinal hemorrhage, unspecified Gastrointestinal hemorrhage, unspecified Diagnosis 03/16/2021 07:50:00 PM EDT [facility] Gi Bleed Gi Bleed Diagnosis 03/16/2021 07:50:00 PM ED T [facility] Z95.4 Presence of other heart-valve replacemen t PRESENCE OF OTHER HEART-VALVE REPLACEMENT Diagnosis 03/16/2021 09:56:00 AM [facility] l Z79.899 Other alf (current) drug therapy O THER INTERMEDIATE (CURRENT) DRUG THERAPY Diagnosis 03/16/2021 09:56:00 AM [facility] l 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 ABSENCE OF OTHER SPECIFIED PARTS OF DIGES Diagnosis 03/16/2021 09:56:0 0 AM [facility] Z79.01 FCI (current) use of anticoagulant s INTERMEDIATE (CURRENT) USE OF ANTICOAGULANTS Diagnosis 03/16/2021 09:56:00 AM [facility] l Z79.82 FCI (current) use of aspirin 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 Diagnosis 03/16/2021 09:56:00 AM [facility] Z20.822 CONTACT WITH AND (SUSPECTED) EXPOSURE TO COVID-19 CONTACT WITH AND (SUSPECTED) EXPOSURE TO COVID-19 Diagnosis 03/16/2021 09:56:00 AM [facility] I10 Essential (primary) hypertension ESSENTIAL (PRIMARY) H YPERTENSION Diagnosis 03/16/2021 09:56:00 AM [facility] K92.2 Gastrointestinal hemorrhage, unspecified GASTROINTESTINAL HEMORRHAGE, UNSPECIFIED Diagnosis 03/16/2021 09:56:00 AM [facility] l K62.5 Hemorrhage of anus and rectum HEMORRHAGE OF ANUS AND R ECTUM Diagnosis 03/16/2021 09:56:00 AM [facility] F32.9 Major depressive disorder, single episod e, unspecified MAJOR DEPRESSIVE DISORDER, SINGLE EPISOD Diagnosis 12/31/2020 11:22:00 AM [facility] pital I50.9 Heart failure, unspecified HEART FAILURE, UNSPECIFIED Diagnosis 12/31/2020 11:22:00 AM [facility] R56.9 Unspecified convulsions UNSPECIFIED CONVULSIONS Diagno sis 12/31/2020 11:22:00 AM [facility] E78.00 PURE HYPERCHOLESTEROLEMIA, UNSPECIFIED P URE HYPERCHOLESTEROLEMIA, UNSPECIFIED Diagnosis 12/31/2020 11:22:00 AM [facility] R60.9 Edema, unspecified EDEMA, UNSPECIFIED Diagnosis 05/2021 11:22:00 AM [facility] I48.91 Unspecified atrial fibrillation UNSPECIFIED ATRI AL FIBRILLATION Diagnosis 12/31/2020 11:22:00 AM [facility] C61 Malignant neoplasm of prostate MALIGNANT NEOPLASM OF P ROSTATE Diagnosis 12/31/2020 11:22:00 AM [facility] 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 Problem 03/28/2021 12:00:00 AM EDT eCW1 ([facility]) C18.9 [id number] Malignant neoplasm of colon, unspecified Problem 03/28/2021 12:00:00 AM EDT eCW1 ([facility]) C78.00 [id number] Secondary malignant neoplasm of unspecifi ed lung Problem 03/28/2021 12:00:00 AM EDT eC1 ([facility]) C18.9 [id number] Malignant neoplasm of colon, unspecified part of colon Problem 03/25/2021 12:00:00 AM EDT eCW1 ([facility]) Surgeries/Procedures Procedure Description Date Indications Data Source(s) OFFICE OUTPATIENT VISIT 25 MINUTES 03/29/2021 12:00:00 AM EDT [facility] ([facility]) RBC AND PLATELET MORPHOLGY <td>RBC AND PLATELET MORPHOLGY</td><td>Routine</td><td>03/20/2021 5:17 AM EDT</td><td> Benign essential HTN</td><td> </td> 03/20/2021 05:17:00 AM EDT Benign essential HTN [facility] Benign essential HTN BLOOD COUNT COMPLETE AUTO&AUTO DIFRNTL WBC COUNT <td>H C CBC W/ DIFFERENTIAL</td><td>Routine</td><td>03/20/2021 5:17 AM EDT</td><td> Benign essential HTN</td><td> </td> 03/20/2021 05:17:00 AM EDT Benign essential HTN [facility] Benign essential HTN BASIC METABOLIC PANEL CALCIUM TOTAL <td>BASIC METABOLI C PANEL</td><td>Routine</td><td>03/20/2021 5:17 AM EDT</td><td> Benign essential HTN</td><td> </td> 03/20/2021 05:17:00 AM EDT Benign essential HTN [facility] Benign essential HTN CT ABDOEN & PELVIS W/CONTRAST MATERIAL <td>CT ABDOMEN PELVIS W CONTRAST</td><td>Routine</td><td>03/19/2021 7:41 PM EDT</td><td></td><td> </td> 03/19/2021 07:41:23 PM EDT [facility] COLONOSCOPY <td>COLONOSCOPY</td><td></td ><td>03/19/2021 1:34 PM EDT</td><td></td><td> </td> 03/19/2021 01:34:07 PM EDT [facility] REVISION/REPLMT NEUROSTIMLATOR ELTRD CRANIAL NRV <td>S URGICAL PATHOLOGY</td><td>Routine</td><td>03/19/2021 12:45 PM EDT</td><td> Benign essential HTN</td><td> </td> 03/19/2021 12:45:00 PM EDT Benign essential HTN [facility] Benign essential HTN COLONOSCOPY FLX DX W/WO COLLJ SPECIMENS <td>COLONOSCOPY</td><td></td><td>03/19/2021 12:30 PM EDT</td><td> GI Bleed</td><td></td> 03/19/2021 12:30:00 PM EDT - 03/19/2021 01:26:00 PM ED T [facility] ECG ROUTINE ECG W/LEAST 12 LDS TRCG ONLY W/O I&R <td>E CG 12- LEAD</td><td>STAT</td><td>03/19/2021 9:21 AM EDT</td><td> Benign essential HTN</td><td> </td> 03/19/2021 09:21:57 AM EDT Benign essential HTN [facility] Benign essential HTN DRUG SCREEN QUALITATIVE PHENYTOIN TOTAL <td>PHENYTOIN LEVEL, TOTAL</td><td>Routine</td><td>03/19/2021 4:14 AM EDT</td><td> Benign essential HTN</td><td> </td> 03/19/2021 04:14:00 AM EDT Benign essential HTN [facility] Benign essential HTN DRUG SCREEN QUALITATIVE PHENOBARBITAL <td>PHENOBARBITA L LEVEL</td><td>Routine</td><td>03/19/2021 4:14 AM EDT</td><td> Benign essential HTN</td><td> </td> 03/19/2021 04:14:00 AM EDT Benign essential HTN [facility] Benign essential HTN DRUG SCREEN QUALITATIVE DIGOXIN <td>DIGOXIN LEVEL</td><td>Routine</td><td>03/19/2021 4:14 AM EDT</td><td> Benign essential HTN</td><td> </td> 03/19/2021 04:14:00 AM EDT Benign essential HTN [facility] Benign essential HTN UPPER GI ENDOSCOPY <td>UPPER GI ENDOSCOPY</td>< td></td><td>03/18/2021 11:16 AM EDT</td><td></td><td> </td> 03/18/2021 11:16:00 AM EDT [facility] REVISION/REPLMT NEUROSTIMLATOR ELTRD CRANIAL NRV <td>S URGICAL PATHOLOGY</td><td>Routine</td><td>03/18/2021 11:07 AM EDT</td><td> Benign essential HTN</td><td> </td> 03/18/2021 11:07:00 AM EDT Benign essential HTN [facility] Benign essential HTN UPPER GI NDSC DX W/WO COLLECTION SPECIMEN <td>EGD (ESOPHAGOGASTRODUODENOSCOPY)</td><td></td><td>03/18/2021 10:57 AM EDT</td><td> gi bleed</td><td></td> 03/18/2021 10:57:00 AM EDT - 03/18/2021 11:12:00 AM ED T [facility] PROTHROMBIN TIME <td>PROTHROMBIN TIME NO THER APY OR UNKNOWN</td><td>Routine</td><td>03/18/2021 5:00 AM EDT</td><td></td><td> </td> 03/18/2021 05:00:00 AM EDT [facility] MANUAL DIFFERENTIAL <td>MANUAL DIFFERENTIAL</td> <td>Routine</td><td>03/18/2021 5:00 AM EDT</td><td></td><td> </td> 03/18/2021 05:00:00 AM EDT [facility] BLOOD COUNT COMPLETE AUTO&AUTO DIFRNTL WBC COUNT <td>H C CBC W/ DIFFERENTIAL</td><td>Routine</td><td>03/18/2021 5:00 AM EDT</td><td></td><td> </td> 03/18/2021 05:00:00 AM EDT [facility] BASIC METABOLIC PANEL CALCIUM TOTAL <td>BASIC METABOLI C PANEL</td><td>Routine</td><td>03/18/2021 5:00 AM EDT</td><td></td><td> </td> 03/18/2021 05:00:00 AM T [facility] PROTHROMBIN TIME <td>PT ON THERAPY</td><td>Ti med</td><td>03/17/2021 11:43 AM EDT</td><td></td><td> </td> 03/17/2021 11:43:00 AM EDT [facility] BLOOD COUNT HEMOGLOBIN <td>HEMOGLOBIN</td><td>Timed </td><td>03/17/2021 11:43 AM EDT</td><td></td><td> </td> 03/17/2021 11:43:00 AM EDT [facility] BLOOD COUNT HEMATOCRIT <td>HEMATOCRIT</td><td>Timed </td><td>03/17/2021 11:43 AM EDT</td><td></td><td> </td> 03/17/2021 11:43:00 AM EDT [facility] PATHOLOGIST REVIEW: HEMATOLOGY <td>PATHOLOGIST REVIEW : HEMATOLOGY</td><td>Routine</td><td>03/17/2021 4:40 AM EDT</td><td></td><td> </td> 03/17/2021 04:40:00 AM EDT [facility] PROTHROMBIN TIME <td>PROTHROMBIN TIME NO THER APY OR UNKNOWN</td><td>Routine</td><td>03/17/2021 4:40 AM EDT</td><td></td><td> </td> 03/17/2021 04:40:00 AM EDT [facility] MANUAL DIFFERENTIAL <td>MANUAL DIFFERENTIAL</td> <td>Routine</td><td>03/17/2021 4:40 AM EDT</td><td></td><td> </td> 03/17/2021 04:40:00 AM EDT [facility] BLOOD COUNT COMPLETE AUTO&AUTO DIFRNTL WBC COUNT <td>H C CBC W/ DIFFERENTIAL</td><td>Routine</td><td>03/17/2021 4:40 AM EDT</td><td></td><td> </td> 03/17/2021 04:40:00 AM EDT [facility] BLOOD COUNT HEMOGLOBIN <td>HEMOGLOBIN</td><td>Timed </td><td>03/17/2021 4:40 AM EDT</td><td></td><td> </td> 03/17/2021 04:40:00 AM EDT [facility] BLOOD COUNT HEMATOCRIT <td>HEMATOCRIT</td><td>Timed </td><td>03/17/2021 4:40 AM EDT</td><td></td><td> </td> 03/17/2021 04:40:00 AM EDT [facility] COMPREHENSIVE METABOLIC PANEL <td>COMPREHENSIVE METABO LIC PANEL</td><td>Routine</td><td>03/17/2021 4:40 AM EDT</td><td></td><td> </td> 03/17/2021 04:40:00 AM EDT [facility] BLOOD COUNT HEMOGLOBIN <td>HEMOGLOBIN</td><td>Timed </td><td>03/16/2021 11:38 PM EDT</td><td></td><td> </td> 03/16/2021 11:38:00 PM EDT [facility] BLOOD COUNT HEMATOCRIT <td>HEMATOCRIT</td><td>Timed </td><td>03/16/2021 11:38 PM EDT</td><td></td><td> </td> 03/16/2021 11:38:00 PM EDT [facility] Anticoagulant MGMT For Patient Taking Warfarin, Inc Review & Intr 03/13/2021 12:00:00 AM EDT [facility] OFFICE OUTPATIENT VISIT 15 MINUTES 03/12/2021 12:00:00 AM EDT [facility] ([facility] Anticoagulant MGMT For Patient Taking Warfarin, Inc Review & Intr 03/04/2021 12:00:00 AM EDT [facility] ([facility] Anticoagulant MGMT For Patient Taking Warfarin, Inc Review & Intr 02/27/2021 12:00:00 AM EDT [facility] ([facility]) Chronic Care Management Services Ea Addl 20 Min 2020 12:00:00 AM EDT [facility] ([facility]) Chronic Care MGMT 20 Mins Clinical Staff Time Per Calendar M ont 02/22/2021 12:00:00 AM EDT [facility] ([facility] Anticoagulant MGMT For Patient Taking Warfarin, Inc Review & Intr 02/21/2021 12:00:00 AM EDT [facility] ([facility]) Anticoagulant MGMT For Patient Taking Warfarin, Inc Review & Intr 02/12/2021 12:00:00 AM EDT [facility] ([facility]) ECG ROUTINE ECG W/LEAST 12 LDS W/I&R 02/06/2021 12:00: 00 AM EDT [facility] ([facility]) OFFICE OUTPATIENT VISIT 25 MINUTES 02/06/2021 12:00:00 AM EDT [facility] ([facility]) Anticoagulant MGMT For Patient Taking Warfarin, Inc Review & Intr 02/05/2021 12:00:00 AM EDT [facility] ([facility]) Anticoagulant MGMT For Patient Taking Warfarin, Inc Review & Intr 01/28/2021 12:00:00 AM EDT [facility] ([facility]) Chronic Care MGMT 20 Mins Clinical Staff Time Per Calendar [facility] 01/22/2021 12:00:00 AM EDT [facility] ([facility]) Anticoagulant MGMT For Patient Taking Warfarin, Inc Review & Intr 01/21/2021 12:00:00 AM EDT [facility] ([facility]) Anticoagulant MGMT For Patient Taking Warfarin, Inc Review & Intr 01/15/2021 12:00:00 AM EDT [facility] ([facility]) Anticoagulant MGMT For Patient Taking Warfarin, Inc Review & Intr 01/07/2021 12:00:00 AM EDT [facility] ([facility]) Anticoagulant MGMT For Patient Taking Warfarin, Inc Review & Intr 12/31/2020 12:00:00 AM EDT [facility] ([facility]) Anticoagulant MGMT For Patient Taking Warfarin, Inc Review & Intr 12/28/2020 12:00:00 AM EDT [facility] ([facility]) ECHO TTHRC R-T 2D W/WOM-MODE COMPL SPEC&COLR DOP 12/25 12:00:00 AM EDT [facility] ([facility]) Chronic Care Management Services Ea Addl 20 Min 2020 12:00:00 AM EDT [facility] ([facility]) Chronic Care MGMT 20 Mins Clinical Staff Time Per Calendar [facility] 12/20/2020 12:00:00 AM EDT [facility] ([facility]) Anticoagulant MGMT For Patient Taking Warfarin, Inc Review & Intr 12/11/2020 12:00:00 AM EDT [facility] ([facility]) Anticoagulant MGMT For Patient Taking Warfarin, Inc Review & Intr 12/04/2020 12:00:00 AM EDT [facility] ([facility]) Chronic Care Management Services Ea Addl 20 Min 2020 12:00:00 AM EDT [facility] ([facility]) Chronic Care MGMT 20 Mins Clinical Staff Time Per Calendar [facility] 11/21/2020 12:00:00 AM EDT [facility] ([facility]) Anticoagulant MGMT For Patient Taking Warfarin, Inc Review & Intr 11/20/2020 12:00:00 AM EDT [facility] ([facility]) Complex Chronic Care Management SVC 1St 60 Min 021 12:00:00 AM EDT [facility] ([facility]) Complex Chronic Care MGMT Service Ea Addl 30 Min 11/01 12:00:00 AM EDT [facility] ([facility]) Anticoagulant MGMT For Patient Taking Warfarin, Inc Review & Intr 10/25/2020 12:00:00 AM EDT [facility] ([facility]) Chronic Care Management Services Ea Addl 20 Min 2020 12:00:00 AM EDT [facility] ([facility]) Chronic Care MGMT 20 Mins Clinical Staff Time Per Calendar [facility] 09/26/2020 12:00:00 AM EDT [facility] ([facility]) Anticoagulant MGMT For Patient Taking Warfarin, Inc Review & Intr 09/24/2020 12:00:00 AM EDT [facility] ([facility]) Anticoagulant MGMT For Patient Taking Warfarin, Inc Review & Intr 09/13/2020 12:00:00 AM EDT [facility] ([facility]) Anticoagulant MGMT For Patient Taking Warfarin, Inc Review & Intr 09/05/2020 12:00:00 AM EDT [facility] ([facility]) Chronic Care Management Services Ea Addl 20 Min 2020 12:00:00 AM EST [facility] ([facility]) Chronic Care MGMT 20 Mins Clinical Staff Time Per Calendar [facility] 08/24/2020 12:00:00 AM EST [facility] ([facility]) Anticoagulant MGMT For Patient Taking Warfarin, Inc Review & Intr 08/21/2020 12:00:00 AM EST [facility] ([facility]) ECG ROUTINE ECG W/LEAST 12 LDS W/I&R 08/09/2020 12:00: 00 AM EST [facility] ([facility]) OFFICE OUTPATIENT VISIT 25 MINUTES 08/09/2020 12:00:00 AM EST [facility] ([facility]) Anticoagulant MGMT For Patient Taking Warfarin, Inc Review & Intr 07/30/2020 12:00:00 AM EST [facility] ([facility]) Anticoagulant MGMT For Patient Taking Warfarin, Inc Review & Intr 07/24/2020 12:00:00 AM EST [facility] ([facility]) Chronic Care Management Services Ea Addl 20 Min 2020 12:00:00 AM EST [facility] ([facility]) Chronic Care MGMT 20 Mins Clinical Staff Time Per Calendar [facility] 07/18/2020 12:00:00 AM EST [facility] ([facility]) Anticoagulant MGMT For Patient Taking Warfarin, Inc Review & Intr 07/16/2020 12:00:00 AM EST [facility] ([facility]) Anticoagulant MGMT For Patient Taking Warfarin, Inc Review & Intr 06/26/2020 12:00:00 AM EST [facility] ([facility]) Anticoagulant MGMT For Patient Taking Warfarin, Inc Review & Intr 06/04/2020 12:00:00 AM EST [facility] ([facility]) Anticoagulant MGMT For Patient Taking Warfarin, Inc Review & Intr 05/22/2020 12:00:00 AM EST [facility] ([facility]) Anticoagulant MGMT For Patient Taking Warfarin, Inc Review & Intr 05/15/2020 12:00:00 AM EST [facility] ([facility]) Anticoagulant MGMT For Patient Taking Warfarin, Inc Review & Intr 05/07/2020 12:00:00 AM EST [facility] ([facility]) Anticoagulant MGMT For Patient Taking Warfarin, Inc Review & Intr 05/01/2020 12:00:00 AM EST [facility] ([facility]) Anticoagulant MGMT For Patient Taking Warfarin, Inc Review & Intr 04/24/2020 12:00:00 AM EST [facility] ([facility]) Anticoagulant MGMT For Patient Taking Warfarin, Inc Review & Intr 04/17/2020 12:00:00 AM EDT [facility] ([facility]) Anticoagulant MGMT For Patient Taking Warfarin, Inc Review & Intr 03/21/2020 12:00:00 AM EDT [facility] ([facility]) Anticoagulant MGMT For Patient Taking Warfarin, Inc Review & Intr 03/13/2020 12:00:00 AM EDT [facility] ([facility]) Results ID Date Data Source [id number] 04/02/2021 03:35:00 PM EDT [facility] ([facility]) Name Value Range Interpretation Code Description Data Yany rce(s) Supporting Document(s) Magnesium [Mass/volume] in Serum or Plasma 2.0 mg/dL 1.8-2.4 [facility] ([facility]) ID Date Data Source [id number] 04/02/2021 03:35:00 PM EDT [facility] ([facility]) Name Value Range Interpretation Code Description Data Yany rce(s) Supporting Document(s) Glucose, Fasting 91 mg/dL 70-100 [facility] Blood Urea Nitrogen 21 mg/dL 7-18 [facility] ([facility]) Glomerular Filtration Rate Laboratory test result [facility] ([facility]) <content>Units are mL/min/1.73 m2</content>
<content></content>
<content>Chronic Kidney Disease Staging per NKF:</content>
<content></content>
<content>Stage I & II GFR >=60 Normal to Mildly Decreased</content>
<content>Stage III GFR 30- 59 Moderately Decreased</content>
<content>Stage IV GFR 15-29 Severely Decreased</content>
<content>Stage V GFR <15 Very Little GFR Left</content>
<content>ESRD GFR <15 on GRILL ASSOC[employer]ATE</content>
<content></content> Creatinine For GFR 0.92 mg/dL 0.70-1.30 [facility] ([facility]) Potassium Serum 4.4 meq/L 3.5-5.1 [facility] ([facility]io [facility]) Sodium Level 143 meq/L 136-145 [facility] ([facility]) Anion Gap 6 meq/L 8-16 [facility] ([facility]) Chloride Level 111 meq/L 98-107 [facility] ([facility]) Carbon Dioxide Level 26 meq/L 21-32 [facility] ([facility]) Calcium Level 8.9 mg/dL 8.8-10.2 [facility] ([facility]o [facility]) ID Date Data Source [id number] 04/02/2021 03:35:00 PM EDT [facility] ([facility]) Name Value Range Interpretation Code Description Data Yany rce(s) Supporting Document(s) Natriuretic peptide.B prohormone N-Terminal [Mass/volu me] in Serum or Plasma 3616 pg/mL [facility] ([facility]) ID Date Data Source [id number] 04/01/2021 12:06:00 PM EDT [facility] l Patient: SHAHEEN DAY Observation Report - Physicians/[facility].VisitID: [id number] [place] [address] [phone], MRegistration Date/Time: 03/16/2021 08:31 Weight:83.9 kg (S). [...] rce(s) Supporting Document(s) ID Date Data Source [id number] 03/22/2021 02:55:48 PM EDT [facility] Name Value Range Interpretation Code Description Data Yany rce(s) Supporting Document(s) Progress Notes [facility] VZQUPi0qBhCOSqDh29/BIHwhJDCla4OqSYohGJk6OFfwKLLzY6XgSGP7wJ4sHRG8TUrHAnWjKeLsSHAo [facility] [file] [id number]== ID Date Data Source [id number] 03/21/2021 07:22:24 PM EDT [facility] Name Value Range Interpretation Code Description Data Yany rce(s) Supporting Document(s) Discharge Summary [facility] WVMURq8xCxYKTkDn76/VEPbjFVPfm4ImVMcuKEx4QXbmJIQcB2WmFMZ2sV8cODC1XOzKSjEcWvOeLMJe lbm [file] BSDQogICAgICAvRjMgMzEgMCBSDQogICAgICAvRjQg KzGjUASPEVyvBCItORLxJsVvGohzYSMNXg4MPnNgYGByCY1ckyBwcYO7ZWW+Cu8CZKUzSW4PyZDWM6Ew xVXnZFqqP3EVUD0VLHG9QN9YkDNoQF2YlULRP7QrxIQfOh1fLOSsb7NiZh0iP7VBTDHYTVUuPUmxSHwk OTXsUOj5S7C0YEJeU5TOB285bBRybSs7Yc9rR3SHOC vNWgDdFTcbAQvmSJZlNVm6N4T5QHXcH3BAH5CfPwQrykClK3G+ImZrBWNEDC9EECTAKAi0N3M9rLYmA8 A0hJyXuLC2PV1CQL1QpDAuiZSpz03+EnHFJcXzGHCpL9HMMXMBMaWfYXrnWLngFAIjIIl7R2W5UXQnQ3 QHA4dnQ2h2TV3+ZgKMSgAyIMNmXv6LBtFnBy2QCzDu IF7sts3ADscuRLWrMhmOXvq2U2jrwkr9sVWgDfC0F2Q8JaR0cVVhLW2VI7Y4nQZiYCT8DRPjqAS+Pg0K a2StYNFlUTh0N2leEAKdCNTnYbNlpU72Z++7fcqhrAP3Q9w0ZNAUpTHnjXsNqqZfH2sGFGH0v4X1NTy/ Cy5RBHP8aTm8bYEiFWKuKYv0tQ7dzLd1CqSwXM52OI LoKXiehW2sZfv7E7Cnm8QjJs4bTm2ybQSkWm0ALtJmHDY7hwQfKgYMInM2lUpdvhipPAJ2W4c4pCO2Hn 10j8tysuTeh9GjLuF8GMnfMQJaMrZyncIoETB5cvCsiK9vsmFjOz5XRYLzLEewlxVtFgGASh5JHoYiYG 06LqeueU5cdGU+DQogICAgICAgICAgICAgICAgICAg ICAgICAgICAgICAgICAgICAgICAgICAgICAgICAgICAgICAgICAgICAgICAgICAgICAgICAgICAgICAg ICAgICAgICAgICAgICAgICAgICAgDQogICAgICAgICAgICAgICAgICAgICAgICAgICAgICAgICAgICAg ICAgICAgICAgICAgICAgICAgICAgICAgICAgICAgIC AgICAgICAgICAgICAgICAgICAgICAgICAgICAgICAgDQogICAgICAgICAgICAgICAgICAgICAgICAgIC AgICAgICAgICAgICAgICAgICAgICAgICAgICAgICAgICAgICAgICAgICAgICAgICAgICAgICAgICAgIC AgICAgICAgICAgICAgDQogICAgICAgICAgICAgICAg ICAgICAgICAgICAgICAgICAgICAgICAgICAgICAgICAgICAgICAgICAgICAgICAgICAgICAgICAgICAg ICAgICAgICAgICAgICAgICAgICAgICAgDQogICAgICAgICAgICAgICAgICAgICAgICAgICAgICAgICAg ICAgICAgICAgICAgICAgICAgICAgICAgICAgICAgIC AgICAgICAgICAgICAgICAgICAgICAgICAgICAgICAgICAgDQogICAgICAgICAgICAgICAgICAgICAgIC AgICAgICAgICAgICAgICAgICAgICAgICAgICAgICAgICAgICAgICAgICAgICAgICAgICAgICAgICAgIC AgICAgICAgICAgICAgICAgDQogICAgICAgICAgICAg ICAgICAgICAgICAgICAgICAgICAgICAgICAgICAgICAgICAgICAgICAgICAgICAgICAgICAgICAgICAg ICAgICAgICAgICAgICAgICAgICAgICAgICAgDQogICAgICAgICAgICAgICAgICAgICAgICAgICAgICAg ICAgICAgICAgICAgICAgICAgICAgICAgICAgICAgIC AgICAgICAgICAgICAgICAgICAgICAgICAgICAgICAgICAgICAgDQogICAgICAgICAgICAgICAgICAgIC AgICAgICAgICAgICAgICAgICAgICAgICAgICAgICAgICAgICAgICAgICAgICAgICAgICAgICAgICAgIC AgICAgICAgICAgICAgICAgICAgDQogICAgICAgICAg ICAgICAgICAgICAgICAgICAgICAgICAgICAgICAgICAgICAgICAgICAgICAgICAgICAgICAgICAgICAg JGSvTMIlJJGsHMMoHBMfXCYrMZNmSFMpONBbGWZkAVy9H5yxTUBiCHDyQX4aXAx6Yu1+DQoNCmVuZHN0 dzEphJ5OQO1jw9TfUBcbMAFty0EaVMy5LR8PCPWsZX hzRE6WZIwlbw1IJLTbQEOxbASMr8utLtKsFXU1SUHiPykkHR9XPRHfO0uxqjIwTTPcEUASNWriGXRCBF ttCIEKZMKvHNVhRfXhRwCjGJNdUPJwRNWANOS7ZFShFgXiEHToPDVfVW1ELZWlK349tsLdSH9HEa6ZSq DpOE8jhy7GXMVnYEAxRtkTPoy4EAhxEI1FtDOfeNL5 YDSsXIBRZgDeC4yqn9IwDXCnGNETXVzwWN9Pl5YosDJwWNy+Rb4NWD1eh9CySRj7VKOwAT8ymd0TKMkW QmCvV5GltEunTAYub0SjXBDvRVOSaK2pPZR0PHO7EBqhgFf4KUYNzy06PPYpxlo2u6rtsIpaDr4BPXZ8 BWgdArbqLcKfRMHoJIk5EEYCDHtJZsNcN0Tqz4PfFv B5ETZhKfKxZZwiOPMpPwM6BK73rPawDR3FHCSeHLDrEF72ORRxZHYiOc8MXo5GLjQuPQ6fxq6JXBDfJY KzIokLFlt2IUuuZS3CxSHqD1UfbCGlf7cFJaMrI3JJFTY4HIYpXv3PLBPzNqHqXWJmCIyoDA5tQRLgCX KScStzxyF1NM3FCR3lvkUyVN6EQeCgCb7uVf3XBlEy D0UsH2HcQSHkNETSZOmyEI3DJJhqLR9fCB4Vp7VNiWIwuD0oux0VROIuDMExWzihuv5MHlluB7Y9vOsu VDArHTBlSDVZNJmkVP8NENWjPVQ2ZDEwOQGkYDMGWaVhA51qIM5GE2Yqg01xMuS7DUDzGlNgXPbyGB43 gYqmlkYqiOBxiTtkZU1USp0+DQplbmRvYmoNCnhyZW XVSjBvETWIKaMhBVVxCBVdHCVtQlS2AaMiJt3OKADsLNKeJXUaZvZxKRVdTLCyYXelRMRuXQG5CLB6LE OeQIYqID5EXwXtBJUeYna0BuouASJfPTHzgo3SFCDlQLWiOUG2EhLfKTPbAPCiKZiiOHCbSTEnXLFzSM NeQEMcPQ2FMaCwWLAvQERwLKFuCUWsSEDpnj0VJWPq YPBnLrSzMWGfYFPePVEjGAwpIZVfGPM9KgU8GNAlQVZaPW9ACqXgNTUoJVt2NJMvCIGoFIZghw6FMPQc RICmROTlQPMtTEBxXBXsWXmaMXXbFZUlGuq2RILjAWKuVU1RPtPkYVFpMXI0SJWlXIJoIFAgbm4IQFTf PXVdGcP5GwFjXHFuNHXzZOleHPEpSRLjEKxmGBBuNC IlVZ1ONfLcRNLfZROqUSooXBEvWZVqzg0RFYUhSOHnXKV1VZVjCHKuVKIxSKftJBHxXRD2ZIK5YUEsOG FnNP4EBzUgHULgMWgzNyChRSRxFTIhfn2JUOZaZOLyPXjzRsDaXDFoAVZlUManLLDwJQH3UKB7OAThPM DeNR8ARbSaFUOyRiJ3YfjpLTEcQGSqcq3DCXMiSTZl VUS8VKIqKDOdMMXdRLhqIISuCVOjZhE6VHEjVHKrLI5GSwFhTSPdWaJyIMgtZMDrUNIcby1XYEIpCDTy QvDvSFUhYMXhMQImKDhcITGtLBKpZQk7HFOqJSTvZL0BHiGpTPBtGzF9UQBoFKBnTOMmtu8YPWTmUMAf Lai1TdZzSCGzBELbBAxmMLWkVGFmKLHfOBPzFOBeQX 4JVnLyPXSqMxU5XRToURSvVKKksy0QQWFzYKEpXVQbQtKuCFJdHDJfXBobJRZxMNS0Dat9BHCgCUZlPD 6YPnSlMJZoEqFbOGFbOPReTMSvef3UWWLkFGJiJzB8WlUqCVHeXDEfMBscESUbKUL0PlKjKOSwZANdEL 1RRbIvRHQoRzk5APPjWOTmQFUzvg0GARNdRVGjFcjg VQCsRBXfPRSvUNdrFNQjQPD7IRWwYVEmEDYyLK6HCqQdQMSuLtw7XUxrKAVdBIOrak0DXHEkKQDmYQe9 TxFgUQZmTKNaDEzbNIRrEVOgYUH5GCHoTDQfOX5RBbXuUGWxBnXbJWLgADBgXSEcoa5BjNYklLgeuc4P HHsEGf5DiTgyCWNzDOyjGk0jfHV5HdGkQEMHXj4Pab JgPULjIWJGJGxbWKXmMMVwF3O3BMMbUWYnNfT3JILdNIQ7OTOlTlE6Jcm7VBVfCyQ2WrJ6LuDdBQT4UP KaPsOtExIjBGMoPYI4MNX5HtCrGmS+LB9jVHl+Sz1Rf7SunwT1wzSjMWktIDT7DW6PCUIGT7GAIu== ID Date Data Source [id number] 03/20/2021 01:47:18 PM EDT [facility] Name Value Range Interpretation Code Description Data Yany rce(s) Supporting Document(s) Progress Notes [facility] KKYNOi9zDfQCIgVa44/SQVpjASNxb7GfQParEEw3WCuqENHuI1LvAPC6oC2uMGU5UUjAJoPwCkAdHFF4 lbm [file] == ID Date Data Source [id number] 03/20/2021 12:38:29 PM EDT [facility] Name Value Range Interpretation Code Description Data Yany rce(s) Supporting Document(s) Nursing Note [facility] OVDWTw5qHrNTJsHa66/PTKzdCHPfr0EgWMitOQe5FOhuLMGcE7RcUVB5qE7uRFX6YBjYZgSuXaVdMSJ4 lbm [file] YzQ+ES8bECt+Zz6Vg8IjxyB6dwPuWJuoFDF7Xt7IYSCNM6MUDw== ID Date Data Source [id number] 03/20/2021 11:53:36 AM EDT [facility] Name Value Range Interpretation Code Description Data Yany rce(s) Supporting Document(s) Progress Notes [facility] ZMBDQq2kLoPIIjDr35/BCJihWEQof8QhOJpmUMp3VUrqGNEvS0CbXUE7lQ7sZVN7GBlSNaGdJiJwLWR0 lbm [file] [id number]= ID Date Data Source [id number] 03/20/2021 07:32:28 AM EDT [facility] Name Value Range Interpretation Code Description Data Yany rce(s) Supporting Document(s) Nursing Note [facility] AICOTm3hQjJYHxKk75/HVClbIGKbd8YhVRkbTWb8WSfoBYIoX7YqJCI0fG8sWJK8LKmVKcHoAeBxPGA0 lbm [file] 9dUXGZCr1+HOkxnAJwaUg[id number] ID Date Data Source [id number] 03/20/2021 06:27:00 AM EDT [facility] Name Value Range Interpretation Code Description Data Yany rce(s) Supporting Document(s) RBC Morphology \\Normal based on slide scan [facility] Platelet Estimate \\Low based on slide scan [facility] The above 2 analytes were performed by [facility] [id number], ,[place] [address] ID Date Data Source [id number] 03/20/2021 06:26:00 AM EDT [facility] Name Value Range Interpretation Code Description Data Yany rce(s) Supporting Document(s) WBC 19.41 x1000/ul 4.80-10.00 Above high normal [facility] RBC 3.74 x1Mil/ul 4.70-6.10 Below low normal [facility] Hemoglobin 12.0 g/dl 14.0-18.[address] [facility] [place] Hematocrit 36.0 % 42.0-52.[address] [facility] [place] MCV 96.3 fL 80.0-94.[address] [facility] [place] MCH 32.1 pg 27.0-31.[address] [facility] [place] MCHC 33.3 g/dl 32.2-37.0 Normal (applies to non-numeric resul ts) [facility] RDW 13.4 % 11.5-14.5 Normal (applies to non-numeric resul ts) [facility] Platelet Count 92 x1000/ul 130-400 Below low normal [facility] MPV 10.3 fL 9.4-12.4 Normal (applies to non-numeric resul ts) [facility] Neutrophils 25.0 % 40.0-74.0 Below low normal [facility] Lymphocytes 68.1 % 19.0-48.0 Above high normal [facility] Monocytes 4.1 % 3.4-9.0 Normal (applies to non-numeric resul ts) [facility] Eosinophils 2.1 % 0.0-7.0 Normal (applies to non-numeric resu lts) [facility] Basophils 0.3 % 0.0-2.0 Normal (applies to non-numeric resul ts) [facility] Immature Granulocytes 0.4 % 0.0-0.5 Normal (applies to non-nu meric results) [facility] Nucleated RBCs 0.20 % 0.00-0.20 Normal (applies to non-numeric r esults) [facility] Abs. Neutrophils 4.88 x1000/ul 1.92-8.31 Normal (applies to non-numeric results) [facility] Abs. Lymphocyte 13.21 x1000/ul 1.20-3.70 Above high normal [facility] Abs. Monocytes 0.79 x1000/ul 0.14-0.97 Normal (applies to non-nu meric results) [facility] Abs. Eosinophils 0.40 x1000/ul 0.00-0.76 Normal (applie s to non-numeric results) [facility] Abs. Basophils 0.05 x1000/ul 0.00-0.22 Normal (applies to non-n umeric results) [facility] Abs. Immature Gran. 0.08 x1000/ul 0.00-0.02 Above high normal [facility] Abs. Nucleated RBCs 0.04 x1000/ul 0.00-0.02 Above high normal [facility] The above 24 analytes were performed by [facility] [id number], ,[place] [address] ID Date Data Source [id number] 03/20/2021 06:03:00 AM EDT [facility] Name Value Range Interpretation Code Description Data Yany rce(s) Supporting Document(s) Blood Urea Nitrogen 14 mg/dl 7-18 Normal (applies to non-nume donato results) [facility] Creatinine 1.39 mg/dl 0.67-1.17 Above high normal [facility] N-Acetylcysteine (NAC) and Metamizole barnes ve the potential to falselydepress Creatinine results. Baseline values before medication adminstration are recommended. Patients undergoing treatment with phenindione will have falselydepressed results. Patients on phenindione therapy should be tested with an alternativeCREA method.Toxic levels of acetaminophen may lead to falsely depressed results forpatient samples. Glomerular Filtration Rate 50.00 mL/min/1.73m2 [facility] GFR Reference Ranges:Normal Function or Mild [...] of Health and the National KidneyFoundation. The [place] method used in calculating this result is traceable to IDMS standards. Glucose 95 mg/dl 70-110 Normal (applies to non-numeric resul ts) [facility] Sulfasalazine has the potential to false ly depress Glucose results. Sulfapyridine has the potential to falsely elevate Glucose results. Baseline values before medication administration are recommended. Calcium 8.2 mg/dl 8.5-10.1 Below low normal [facility] Sodium 140 mEq/L 136-145 Normal (applies to non-numeric resul ts) [facility] Potassium 3.5 mEq/L 3.5-5.1 Normal (applies to non-numeric resul ts) [facility] Chloride 110.0 mEq/L 98.0-107.0 Above high normal [facility] Anion Gap 9.5 [facility] Carbon Dioxide 24.0 mMol/L 21.0-32.0 Normal (applies to non-numeric results) [facility] The above 10 analytes were performed by [facility] [id number] Carolyn Mckeon,[facility] [id number],[place] [address] ID Date Data Source [id number] 03/20/2021 04:18:19 AM EDT [facility] Name Value Range Interpretation Code Description Data Yany rce(s) Supporting Document(s) Care Plan [facility] YWMCTt6rXtVKIoFz92/OSHopLUCcl6TrTLhkVOo8MFmmCDIhB3WkNQE6fH1oUYH8BXiIVhLjRySvIYS2 [facility] [file] YHv4JWWrV8F8BqDdBF6MVp7HKiZ1CYE9rDTdNn6BBsI0RWJJIsTkNZ7WXUr= ID Date Data Source [id number] 03/19/2021 08:25:41 PM EDT [facility] Patient: SHAHEEN DAY : 1950 M RN: [phone] PACS System: [employer] [facility]EL[facility] W CONTRAST Provider: [...] rce(s) Supporting Document(s) ID Date Data Source [id number] 03/19/2021 07:20:25 PM EDT [facility] Name Value Range Interpretation Code Description Data Yany rce(s) Supporting Document(s) Nursing Note [facility] EIGEMx9mJaTQEzSh30/DCSbhWFWuy1RbCHfqLGh8LNhuPVOlA8ZgUTB9sM1oUMG2OSoZRaBwTiDxMRZ5 [facility] [file] H4qDFuQf5YCuDtLMSSEwKjCL9PFAg= ID Date Data Source [id number] 03/19/2021 07:17:49 PM EDT [facility] Name Value Range Interpretation Code Description Data Yany rce(s) Supporting Document(s) Progress Notes [facility] UVSMJr3rNmHSLcIw58/DJNexTWCfu4NaEAptXSj6ZGnlOEZnZ8TmXAG8mF0yUOW4POoCQkPxPuUpPAA0 lbm [file] ICAgICAgICAgICAgICAgICAgICAgICAgICAgICAgICAgICAgICAgICAgICAgICAgICAgICAgICAgICAg ICAgDQogICAgICAgICAgICAgICAgICAgICAgICAgIC AgICAgICAgICAgICAgICAgICAgICAgICAgICAgICAgICAgICAgICAgICAgICAgICAgICAgICAgICAgIC AgICAgICAgICAgICAgDQogICAgICAgICAgICAgICAgICAgICAgICAgICAgICAgICAgICAgICAgICAgIC AgICAgICAgICAgICAgICAgICAgICAgICAgICAgICAg ICAgICAgICAgICAgICAgICAgICAgICAgDQogICAgICAgICAgICAgICAgICAgICAgICAgICAgICAgICAg ICAgICAgICAgICAgICAgICAgICAgICAgICAgICAgICAgICAgICAgICAgICAgICAgICAgICAgICAgICAg ICAgICAgDQogICAgICAgICAgICAgICAgICAgICAgIC AgICAgICAgICAgICAgICAgICAgICAgICAgICAgICAgICAgICAgICAgICAgICAgICAgICAgICAgICAgIC AgICAgICAgICAgICAgICAgDQogICAgICAgICAgICAgICAgICAgICAgICAgICAgICAgICAgICAgICAgIC AgICAgICAgICAgICAgICAgICAgICAgICAgICAgICAg ICAgICAgICAgICAgICAgICAgICAgICAgICAgDQogICAgICAgICAgICAgICAgICAgICAgICAgICAgICAg ICAgICAgICAgICAgICAgICAgICAgICAgICAgICAgICAgICAgICAgICAgICAgICAgICAgICAgICAgICAg ICAgICAgICAgDQogICAgICAgICAgICAgICAgICAgIC AgICAgICAgICAgICAgICAgICAgICAgICAgICAgICAgICAgICAgICAgICAgICAgICAgICAgICAgICAgIC AgICAgICAgICAgICAgICAgICAgDQogICAgICAgICAgICAgICAgICAgICAgICAgICAgICAgICAgICAgIC AgICAgICAgICAgICAgICAgICAgICAgICAgICAgICAg ICAgICAgICAgICAgICAgICAgICAgICAgICAgICAgDQogICAgICAgICAgICAgICAgICAgICAgICAgICAg ICAgICAgICAgICAgICAgICAgICAgICAgICAgICAgICAgICAgICAgICAgICAgICAgICAgICAgICAgICAg XOMuTCGgQJUjNSSlOOx8V5hzUJMcEHFxLA0iWBp9Rq 8+KWbDSmVcTRS9xmZgyV9OMH3jm8OjTEogSWMwa4WrLSx8BB9NLQKrIHzqGM2FKOexbh7PYRQvVAYhwZ UXe6yzAwZvLWZ9ERFjQygsFU4NXSDfS7ialhIzBMLbETCEECjgAKRBBZilJCHHRX9UZxUcW6VdtU82MP MNCj4+DVwvjkIpCvvQBeL2FLIgz9BiLOv8IW2URBYd Xtuar9UvUcMxIJTZWZtoLY1LXEX4PVM3DQKgGd2LNKCcK266oaYhXO9LAk8AYqJhZO9bjk1EErQaMNUt QmfNOeg0ADdyBX1YcULgMQsCon6udsIsxuVMn7OjrxRthIJYhBtqgIOkEYShhAXcm7IapDXoxQciLVNI DUMseXV1XxR4RjWnOhMhLSF8PTzkVG6dHXjfFU3KRG V6FTswQSFzTRYgC0fUHuMaPFtfSBGphJtaML3SKaBoN1DnjqGrjHArWHAvPESNZe0+DQplbmRvYmoNCj E8HKYur8VdIFc3BR6ZYUIvEProAM4UAQGasO1mOMxjIM9ITiDsGrVsFNXVAcNpM62riNLvAIu0S7YqVs VkZGVkRmlsZXMgPDwvTmFtZXMgWyBdDQogID4+ID4+ MFsyTG8ZSRiyzcHjNRMuAz8LRTCoRKGmRT1yFKQpUVRiA8S6xBuhHRZKHpGiK6iknjauIK8ePLFiP686 fJoharDbCPR1XYIxQc4DUXVkTSZ5KCImrFUdTqKcJIOXXBriAV8FiMZrDAF0uN9gWAgiLEWfUNVxL4cJ AxXviJgeRQ40wQfukvZljMHfWOy+Dn1HBV6kt3TvZK u6lxUfAUsqMYL0VWwoTMHiEPUzEHJsDJM6UFJ5EIWDGgStOVPpGKMuXIgvWBDmHRMakj8UOJLeMEFcSF buBTLzQDWiSMRyJEzvRUUyZSXjTvl8HSOqTQMfVY2XQvZfGGLlBHNwFWvbSHDyPSCyce2NICPuDIHvGs x8JLQaYSZoKXEpMHdrOUOdJRXvCXIgKHJtELIsKH8Q IbOuLTGjLALjHXYcHUVoDHVtuo5MEGOpRXPiWLMpHWDdCIOrOKMpWLfcKCIoCRS3Mxx5LIDaFNXbYE4X MaWrPRWgFMk9OVZeEQQzMXDekh0EPXOoNEUvHDB1BWWhQKKdZSLhWNadFXTkPHN0EsYzMSPaVQSkTY7E PdBxXJEdTRg0PdHfEBDiZQGdcn3JFTRxOPEhQEo0UQ XrFOEzKLGzJWmqHVJpFKDyVIb5KRHuYHEuMF6TKyLmGSKtNGLkKgVeUWBlNZWayy8RGFHjTCFwLJLjVV SnUPBmNFNzNMdbBQRzICFdPBQ2EUFuVQSnCL9DBqGmWFLfUZI1WROhYZCqDIPrza5IMXDoJJQlLnX9Rp QaXDDrIAZjMRolCPXyCZBbLvsnKFWkUWAzXF5MIzUv UXLyNHK7EvQbVHRdRMYztg9CZIUpRFNsBxzwCQQlYPGqGGEpQPogZNCzPGV3BEL6NDOkQKUzBA3CBpBy RYUcOHRcVVYwNHIaLAKroq2AHBYhEJLaCtTzTISzCGBvHUMzUFulKJUmJMY2EIY9QPUoPLLfKB9ZXbYt MWLhHqjzNhphSKFnCNMgbb3UTMZeEVNlHITgMUCuEJ LsZIZoXViuFHIoCNL7JID3AUQlROYjND5IBtYaRGSfEfv9ZZFwLNUuQQRgcp0IHRUgKIUcKXK7OIQsYE QvYXNkSYehTJFdTWZ2ECjbDRLqENEzGR6FQxUwPKZmPgCbHKbcPYSxPJStln3DTRAiLBEkGQk2EOWoSR IhQLHvWAqoRPHzBAWpMZJ2VZVhOSWlDQ0HLfOdMSIg GrEoImLqLHYjZYTwlr4BfHCpqWsnhp7KSYlFSw3EbHtnFOZ5QRdwRd5riVBkYtHoQHMZFo9DmhXgAFLy QXFQTWmhLOUuUSfcJAPkW7ZiRKbdB4WzSUI4A0VuTKDlKSXlCNGpCTHoBvR4CKJbFKO1CtRtHxI6BaAo MJXpYgJ1DQO2BNP1SFW5RTH+PY4dEFi+Uc7Zb2FrazO5xpYrZChgFhS5FB7FLBUFE8UWVg== ID Date Data Source [id number] 03/19/2021 07:17:34 PM EDT [facility] Name Value Range Interpretation Code Description Data Yany rce(s) Supporting Document(s) Progress Notes [facility] KBNCZn7mEwZBEjBt16/VIPwqVLUul9UaDOmmBUa4HVijSRFkS5NfHNI4yZ3sQWZ3GBkERnRlAmVlNZA5 lbm [file] ICAgICAgICAgICAgICAgICAgICAgICAgICAgICAgICAgICAgICAgICAgICAgICAgICAgICAgICAgICAg ICAgICAgICAgICAgICAgICAgICAgICAgICAgICAgIC AgICANCiAgICAgICAgICAgICAgICAgICAgICAgICAgICAgICAgICAgICAgICAgICAgICAgICAgICAgIC AgICAgICAgICAgICAgICAgICAgICAgICAgICAgICAgICAgICAgICAgICAgICANCiAgICAgICAgICAgIC AgICAgICAgICAgICAgICAgICAgICAgICAgICAgICAg ICAgICAgICAgICAgICAgICAgICAgICAgICAgICAgICAgICAgICAgICAgICAgICAgICAgICAgICANCiAg ICAgICAgICAgICAgICAgICAgICAgICAgICAgICAgICAgICAgICAgICAgICAgICAgICAgICAgICAgICAg ICAgICAgICAgICAgICAgICAgICAgICAgICAgICAgIC AgICAgICANCiAgICAgICAgICAgICAgICAgICAgICAgICAgICAgICAgICAgICAgICAgICAgICAgICAgIC AgICAgICAgICAgICAgICAgICAgICAgICAgICAgICAgICAgICAgICAgICAgICAgICANCiAgICAgICAgIC AgICAgICAgICAgICAgICAgICAgICAgICAgICAgICAg ICAgICAgICAgICAgICAgICAgICAgICAgICAgICAgICAgICAgICAgICAgICAgICAgICAgICAgICAgICAN CiAgICAgICAgICAgICAgICAgICAgICAgICAgICAgICAgICAgICAgICAgICAgICAgICAgICAgICAgICAg ICAgICAgICAgICAgICAgICAgICAgICAgICAgICAgIC AgICAgICAgICANCiAgICAgICAgICAgICAgICAgICAgICAgICAgICAgICAgICAgICAgICAgICAgICAgIC AgICAgICAgICAgICAgICAgICAgICAgICAgICAgICAgICAgICAgICAgICAgICAgICAgICANCiAgICAgIC AgICAgICAgICAgICAgICAgICAgICAgICAgICAgICAg ICAgICAgICAgICAgICAgICAgICAgICAgICAgICAgICAgICAgICAgICAgICAgICAgICAgICAgICAgICAg ICANCiAgICAgICAgICAgICAgICAgICAgICAgICAgICAgICAgICAgICAgICAgICAgICAgICAgICAgICAg ICAgICAgICAgICAgICAgICAgICAgICAgICAgICAgIC AgICAgICAgICAgICANCjw/oFLxE0bbwFUtwmU5O1mnKo4FHk5MXP3ev4HoWXEuDVpltcMxJorRUtSiDN KoGmbKYan1SIffWC8ShFWoL5CyJ2DxZOplWI0CGAUfGHOehOScPPVwOLFyErE7OISsMHwpDK8BqCQrWR rhEYBxGYYuNqAgYRJrEFMiASWqMQ2VGIOjY807qmSm Kh4FPz0LUsTlVN0fpr6OIzpwGMKuAtaVHku5EGijQJ7EwZSvePBoAXUnDGBQHgDnL9kxi1QzJgagIETC OApwXW4Rk4UtcWNvMKu+As2BDA9dc6CgIEmvSJXmHD4mlu6VCIbAYiYwK2GddDpnSSNqv4ogXUCeYY4i yGNgFTK6LUMzTASfxYZBoR1rVYiovZAzhulbMkQrBX PdMS2pIg4eVCDmMHWsHcT3LQBQKK4WCPFqPDPfqQRvKRXeBHHJZU2LJHfwOQI1VsuugcWejHRcZSvcGL 9QYXJlbnQgMjcgMCBSDQo+Kf2DPG7kh7QwHJbmJESyHG3dej8WRRbJUrYnD9C3nDAtD4P4JUsgHy0CRM KfHTFdNoQpTSNPGXjjCX8MPE4hjyA0MK8AtCXkRSSm SQYttLHiVFj3E52clXNrEMgeLA9TTBC+Frantz+De9TXZVtGSWeRKWzLzFcBNNDCzGfA6ZmU6CUv0ItK5Qa GY51ySmognCtDXsdND6EBY3nYJUeDWHFVI9HhNDppR1voyGuAqFxKZYOIyXnG76yoEQfXQZnYGU5NONh Wd2FCLDmJ7NztvSljHdqcdHgJHSoXKWSBQ6XPEiohc FsdPDhjNllWA25gUvsSC1OAh2CFdDjWO8psh5FtHFeJs8VYHQyML3OTQQmQRJlYYJbGUC5PWJfKnIzSM udKBGkAFXjTBH2VBAcTSKaYK0XHgRnUQWcUID4QIGtFHKkSUXiix0HDNPoDDRoTtA2FoUlFZWkDBSkIA coHYVuXOOgTDN1RLNjCFKpMN6RPiAmBCSjVLMbGzEm NMTkSJTjjd4OWPWeIZFkTyJ0PJTsHBUyXUUdDKkxZPTkFTP8CpAcOEDqKLJxDT7MAfJvUAHxRXC4SSgd EFRyDBKlit0KOHEeFIXqLjCeFUYoYJEcSSVbIUuzRTHtKKS4ZbA3PXKwTCGsVH8DYdDtOKEaVSv4AMKy JBOeXSExuk8FDIZrCTPuTOx0PdYwKKFcWEJpFCsmEC UkVDA9LDj3OTGfIJDmLY9WBtHoPNSySRVdFURbPMXgHAJjdr8RNVPnYNFwVVQ5TXOzQEMvVMObGNviBA FsLZZeNFM9URZcGTGbKV8CInWbZEXgSUPoZNNtQEDxRMJfjq1YVMTnDTUrYTY3GpTaKQGgQQMxOMmbGC OcKATwHuJ6WPNsXVVfMO1OQyOzFCEcQCZ4KsxuNIQz AGUpye8WMEZrCJYkMhryPLGjEIKzOHHtIQuhIMGvKSSgWWI6WFCaOPSwDG8UUiQrLIOvQXUkJVAeSKEx XCRklk3BNSAhNUJhQYT0DxFyLVNpHXCjVHmaVAVqJFH2FWH0WNUhLNBxPN5EZwQvSRMrEOQ7YvprYRPp JDJlup0XSFNnGPEgInN0ClSjJEEwUDGiAUpvXURxBU V2DUM0RRPqPXFbRO2YYjDgTMHuVII9WWFnPSEbOFBrbq7CyVIilGznbi9RTGcRNk0XlCppCKPeLHlxIq 6clFWhRHFtVEEEVt3GqrBdLTKaWEKIBVxjICHhAILdXJTjMtM1MFRiENQ5WVV7RUE2TbL6JOQyK9SaBC cwXmT0PXJiUuQyAHusIEXlBeHmSZi7NLI8WWX4JxF3 ZDFhNzM+PQ5iGKr+Dz9Ip3YrwnY0avSfAJuuLco1FM4EMUGSB5PPAx== ID Date Data Source [id number] 03/19/2021 05:14:57 PM EDT [facility] Name Value Range Interpretation Code Description Data Yany rce(s) Supporting Document(s) Consults [facility] DDWZVv7aYwVFTjZu49/WOBapCXIwh8KpUXfwUDp0DXlnWSOtR8CfRZR2qZ6qCGG4HAaSSmImHqRiIAO0 lbm BhOgxONxYnLACkSskXKpXaEToiNfrvsMFeCB1HdUF9MLAvL95aYCUfBJLiZ3ZkIGGjNDH+Dr2NGVAnfP CyHN4KJfbT5T7Lj+J6Qo0j8z8PETRnwFaN08JsZpCKvOmJyah7eYF8uBVv6y8hGhr7H69iM3tUXPzzuf 6MEDBi0vsLUjObC94+tM8FYqUgt2+oozTWWqvV//Wv pB2D9Di83O0kTxr190UhF9to3rAFdW4hL2jsx6H5qHFlfbLjA27hJJQV9gUarSuCMdN1BWJfG1yv8fWz /FlgmvlNpocR+BZGIO5kLQdKbHVuemFlzZS/FbZDzZj3bvyOb7/PxB7ETXGwTRHqfr3qSldVwCubw1AW N+/op/YtLYu491JmTDt0IcSxp3Pb+9agwmB5mW3oGH uzMKEssKVNJAY/RlLcha0BkiPqeVJN6ckafMaHdau5qCOqf8UxtkjzW7KBzwe1TzgO5G+zJiH3ptUNQ2 metBXToU/YCgq8hYHev6jmiDnjgqqor7VvV91fYVxXSzUwbu/ACug9d4rQ1a2CJSgsDCROkVhE75gqs+ bcN45crxBVGXueia/9wv07WPmZl6kqm7o12e34g02f bQMTkfsdjMDx6n1LzB7nP8heJ7e/KMXYXq5acoPM6RXFdgEs/vUPrU/[employer]/+wJc7mzbfbBvXcRiUF/afC [file] jilaM2SYD+RT5oPCK4ZREMRXRbuAb3FnsYw295NgRCl3IewWP4FQc/wet inspector optical glass/9IXJAVO2k251cPAo5fjhfs2 [file] AgICAgICAgICAgICAgICAgICAgICAgICAgICAgICAgICAgICAgICAgICAgICAgICAgICAgICANCiAgIC AgICAgICAgICAgICAgICAgICAgICAgICAgICAgICAg ICAgICAgICAgICAgICAgICAgICAgICAgICAgICAgICAgICAgICAgICAgICAgICAgICAgICAgICAgICAg ICAgICANCiAgICAgICAgICAgICAgICAgICAgICAgICAgICAgICAgICAgICAgICAgICAgICAgICAgICAg ICAgICAgICAgICAgICAgICAgICAgICAgICAgICAgIC AgICAgICAgICAgICAgICANCiAgICAgICAgICAgICAgICAgICAgICAgICAgICAgICAgICAgICAgICAgIC AgICAgICAgICAgICAgICAgICAgICAgICAgICAgICAgICAgICAgICAgICAgICAgICAgICAgICAgICANCi AgICAgICAgICAgICAgICAgICAgICAgICAgICAgICAg ICAgICAgICAgICAgICAgICAgICAgICAgICAgICAgICAgICAgICAgICAgICAgICAgICAgICAgICAgICAg ICAgICAgICANCiAgICAgICAgICAgICAgICAgICAgICAgICAgICAgICAgICAgICAgICAgICAgICAgICAg ICAgICAgICAgICAgICAgICAgICAgICAgICAgICAgIC AgICAgICAgICAgICAgICAgICANCiAgICAgICAgICAgICAgICAgICAgICAgICAgICAgICAgICAgICAgIC AgICAgICAgICAgICAgICAgICAgICAgICAgICAgICAgICAgICAgICAgICAgICAgICAgICAgICAgICAgIC ANCiAgICAgICAgICAgICAgICAgICAgICAgICAgICAg ICAgICAgICAgICAgICAgICAgICAgICAgICAgICAgICAgICAgICAgICAgICAgICAgICAgICAgICAgICAg ICAgICAgICAgICANCiAgICAgICAgICAgICAgICAgICAgICAgICAgICAgICAgICAgICAgICAgICAgICAg ICAgICAgICAgICAgICAgICAgICAgICAgICAgICAgIC AgICAgICAgICAgICAgICAgICAgICANCiAgICAgICAgICAgICAgICAgICAgICAgICAgICAgICAgICAgIC AgICAgICAgICAgICAgICAgICAgICAgICAgICAgICAgICAgICAgICAgICAgICAgICAgICAgICAgICAgIC AgICANCjw/qWLvK0gnsRKtpqW7Y3rwUc7QMe5QSJ2p x3MiFSXrLRtcahZsTmyXDlAkHJIiZqjQJjy3IRryNL2OkZYjG7BwQ4AuSQzqQB3RWQRzMPYluFIuHIIf KTUiLcE4EFHgZLynBX1CuLNtNQkgGJPjIXYjHeJiZMXcVDUoNEZqUF4TSZXdC990bhDnBr2GSj8PPiZg IG4ixq8DPMLbYICxOkqUBvu2AUkwVF1XyZJbiLG2GO SeGVJEBxMsI2gig8KzCJOpWIHLCQqzZG2Jr9SrdFXfMSy+Jt4JYM9wp0KpDJe8BMRjDL1dkd5SMDuGPi JrO6ZmdLpaVWFnpvZ4sUJnJJN1GOG5sFUyptBmWqS4pRDuTZ6USXJ9BMoqCfvvSkEtVOTcTRoiFXEWLB yCHsUvC7Onn7FkFoY5IKJwToUcDVvgNVKwKbQ8VR56 lFtjCF8PVHUvDAQoYN00AMGwIXLeKg5OJp2RQbPgGT3bea8PGBPnAFXxLamFKeq4CUefOW3DxIXiB9Jq dNMrw8vEVmPjS8XCXVN4SCPuZm6GOPKuLqRnGBPaTKyuMD1aOOEkBTMDiOrqeaJ6PV0KMS3ggsYiKO7H RmWtRj6fLf6UGbHsJ2HgN9MpODXeRKEYSSdlAF0YBP iuAV9mMP5Vx7ZFrLReoS7rzq5FFUQlDELkHdcvpj6EKtoxA9S5kGbwSERqYGMlEKBOTXdxUJ1BRINqKI R6UGCzRVMcHBYXJbAyG15iVJ6OC2Fjz22yRbL0RMOaGtLbRXyrKU63bQysrbBrtHIgkXqxAF0CQy9+DQ plbmRvYmoNCnhyZWYNCjAgNDMNCjAwMDAwMDAwMDAg FnT7VbFsNx1YJBPlAATcDGBiOrEjAUVkSHClAInlSIMkAHX8TWa7NTTiYIZjMN2GAbTqYXGgOEKmPtXz QQGcMPQviw0BERKzWUFcKSR0CfSqWEHuUMUgMWwaKZCyMWAoXjI0MJFjPFLgNZ2STnBwVZKrXYK8DgIb SUOuBIWscr9VCQLyRYTvZbW6WqEhFXMmHPUsWDmdMF KuJVU4BbBdOZNlFVDeZP6LPjZgJDHrBXx1NXZoLWWuGDFajy8TMIWjVCJsOJExIWRfSJTtOZZxLSijWF HwRDL2VDz4KRBzDRTbVA9ZDcLpKDCeCSl4ULWkWLVmVXEydb5WAUGuJYEcEMz5IBMiFIWxVRVeBHqgUT FfYJGcACC0OTVnCNZqTT7DAhWeKAMbMQNcEwQtJEOs VORlrd5CTHBiKFAcPLTsJWVkCXThPJMqWAmhDVVaMSGpGnX4PFRfOYXmZS5YAqHlNVUlRwV6HhFvLHNf BTSbvn5FGLZwOJImSMN8FaTdHOArVCScNJwxHDXlADJ5EXZsEWLfQUBcEK0IKbScFQSvLjE1YjhjNUHd SDBwtr8QUQFoUVDyRWSyHhKlEOQrKIYqXCbbLSLoRM P9OvFgSCNuZNGuBR1AXoSgLVHnMzM0HELyLTHwDEPdut0BKGPvXQIcYwvqCHNbQQTwTZHuPFzxNLJzNK Y1SPZ7BGFyPRQpZC5JAiCrDJQpRxueKDejCVVgPZZtjg5GBYFlIARhVDL1XIZmGFDoXQGeHDztFICrTC J3IzJ8SGAvEEXbAA7KDcReICOdKih3EIxmGELlAHSd xp9QSOZwAKIgVXO9YYUhUBOtOHBzCDzuPLDfDFY8UsI2DLTzNTHoTX2DMoPfQXAsUft7FTiuWUHlSYMe dv4XEPQeXMY2ZjO7CvBiWXLfBIGyPPdxNHBkSMTrBmGkSTVtSEIdPL5PTaRmSWUpTYF1UpvbWNVmSBVo ge3UGLXxJGA0EVBsXVJzORNmWPTdANkkNEQkOFY2OJ FlZZIcHCMfIR5TBzQyVCPcZXYhUuPmEKZsPPVttj7HQMKdYSZ0CiK8YZLbJCRfRDKfBCreUAJdVOU6RH C7DUHpOKMqDN1YCbHgFHGbLIK4YLahRTQwDKAoem6NgSArwBxzaf9QYKtKPr1GsHwzDVGwGZkyVf0tvF M3TsZyPFKZRh7RjyBmGWPoYVTXNEyiULYyWCZxKHCc HBH3Zmc0O5F9K2P5XUHfVXZ2GMR1UWNpAMP8KcO5ECP5A1QpYXRjBJouFqjcLtTcIaN0ZQwqQeO3WqFy YTg+FO7wPIh+Hw4Wm5GisvY4oyTiNXe3Iyi1AY5BEWZMU8DLNk== ID Date Data Source [id number] 03/19/2021 05:14:32 PM EDT [facility] Name Value Range Interpretation Code Description Data Yany rce(s) Supporting Document(s) Anesthesia Postprocedure Evaluation [facility] ECUXGt4qGqKMEeXn80/CKOirLQXmh0GvEYiwHDj6CMllLELvB0XpMDB3eB1iQPK2GQwLKuFsKiTgEHI7 lbm [file] save all operator+9D9OT7//+QWBRusw1VVfqMdtgAH3pP0M2o2uqIqbEbz+r3tBjGvMZUuhhYx4XNKvJNwc46g8EUvy [file] BI7sSCl+Ig2Ru7BfkzP6ujWxOPnkDcl4VN4YUUJOB5DSUh== ID Date Data Source [id number] 03/19/2021 03:53:27 PM EDT [facility] Name Value Range Interpretation Code Description Data Yany rce(s) Supporting Document(s) Nursing Note [facility] PRHLVv2xTsYRIxRd08/STYpqTLVye8QbCYpuFYi5OTvfRHRrK1EqKLQ0xS7oYDQ6OGjSJtZdRoIxWXN3 lbm [file] ICAgICAgICAgICAgICAgICAgICAgICAgICAgICAgIC LgFJImYGJfPXBrVP5UQPOoRCMpUVQqHQTdRLSzNCGlZTQbJEMcKKPoPRFjJQTzICRhHLUwKSJnLULiUT EgVOEdQLKtSYJwPLKvDJEhJNBmMDLrQISdBYKrUHXxANLkWPTfQNVmBKIhHRUnNBXlWDRyGX3MYKYzBR AgICAgICAgICAgICAgICAgICAgICAgICAgICAgICAg ICAgICAgICAgICAgICAgICAgICAgICAgICAgICAgICAgICAgICAgICAgICAgICAgICAgICAgICAgICAg JWRyCN6USZRvZXVjHAMlLYJoFWFlBPSpVNRmRDGhRJLxYABnXPUeRTJeABGrJINbLSZwYRYdMTXeKTQd ICAgICAgICAgICAgICAgICAgICAgICAgICAgICAgIC WxRYKlWHIaJHGxZWDmCS9TFECqNVFgNKVuEORkCCUsQTBlCKDePAQyLFSjTIWjXKRuMUIbOHDrHFPeZY XkVHJtFFKwDGRnWISfQVUlLVZfMAQkVYCwLZZdOXGbWRMhPXSlFZYjSAOrAUEsDKWcSKCeCZPoXX7BFK AgICAgICAgICAgICAgICAgICAgICAgICAgICAgICAg ICAgICAgICAgICAgICAgICAgICAgICAgICAgICAgICAgICAgICAgICAgICAgICAgICAgICAgICAgICAg XFJaOXEoBS8HECPkUUKdNMSdTCLtBMMdISJkMMBrIWQzABMmUHPqPSBlDHXcYDHjUGAuWNMyZUBwRXOo ICAgICAgICAgICAgICAgICAgICAgICAgICAgICAgIC ZhSWEnRLTpCSJmGDSeCNVlDA7DYIDmYEGlSVHuTWAcYNCfMEOcTAKdXBLyLJSpVWAnZJBhHSZlDACmGD AgICAgICAgICAgICAgICAgICAgICAgICAgICAgICAgICAgICAgICAgICAgICAgICAgICAgICAgICAgIA 0KICAgICAgICAgICAgICAgICAgICAgICAgICAgICAg ICAgICAgICAgICAgICAgICAgICAgICAgICAgICAgICAgICAgICAgICAgICAgICAgICAgICAgICAgICAg BUSqFVXgAGXiJV3USYYpRWVuHMYbYUMkKSExUDVtBWLeFCDwGCHfJIAiCVBhAZNsZEOnCVCoZYKpYRMz ICAgICAgICAgICAgICAgICAgICAgICAgICAgICAgIC ZzMELgGLSuSGBaDNDcHELySATsDI6EDJ50aNYze6A8USQlIL9reep/Ri6WRPnfnfCshXLrAF2KGbDgON 0bsk6DPoBgCH1zfa3PONeNQzJwG1Z4sARuLXNhCFLOTgJbG25rSZucFj31RYtmXWJyCrRdXWi7Af4GAw UcF6bfFNMlGrN5IFAhVtSlSXctLI8Ic8RciQTtMUo+ Ti1AIM5mk8NeGPlwRlJeKB9xgg1LBYgURuQiV6RbobR3QIHkBMByAh9DTNWxCDFxhAJtAuWhWVDDWmJp J7CwhZ27PBIMUu3+QXtanfYrLuoOJxRfRGDuo3VcVTe1MT8KRJHoQQg2dQHuXaDol8jlKmNGl2QjFBR5 ZMRpiG5eWJWmrc7aLmubUb0kLHQgZZ5wWX2kMCKvMN KlDhS7GEIVRU7CURWdWBQviRFzDWDyMYFPON3YZKcbZGP1PnxchsKbvLImCSegGD4IQIAglzBaJoJjEP BSDQo+Me6SNS5go5TqERnwDJCsHA2gga4EFDyUUmCyL4W6xRCpQ2F5NZdmQs8FNNClPIMpCpRnJZYXAN sdTN9QEC0bplT6MK1XbXMgCIGiGOAzfNVaHYt9K97h bRBlEWviOF9MXZZ+Frantz+Vk4APBBaGIIiLLKdNjFuWIQNTkSyS2GeB5BQe4OwS6PgKO67aQbzozBhIWxo JV6GKZ4tIMEdYKPJIM3GnSTzoN4vdrDzKbQmLKGLZgMqM91xlOHlORJtLNXwAIKsId8JDQZoP0CqvoZr cXfibdGfJEQfFUCRJE7LMXvcnnElwCMggGapWO03kZ rxJU3HVt1RVmNpYM0znh5VjKIyWa5DSKDlMC9AOJNaLMJdOHPuGNN5ASFfUyOwUHmoCDNwYVDzXSA0KT PzBKVlFK9OJfSvIPQhVNi2MGVuFBZsUFIlmp8KPPPkGNMtXJBuIvXpLKWiOWDyOEcoZRKmHDClNIE1NI IxRTGnAB1KLbIdGKHaMSZwJQMrKKNaKKOmiw0ZRARp YRJmBMRgBKNySYMiRVZsZOkfTNNaMQEyMMq1XLRuHIOcBQ6DMzVkZQYzMOJ9YuvhBNEyTNQxpf8JNIYj IWUaZwx7GkLwDKVhPYYnCCjzXTOhZBZkNSXyDAUcGMSnQR5PKaPyDKTgXFWkHWvrEKMcNQBuua6ZDOQz RLSgHEXpMQQaINKgVQGuHJknVLGfALJ2IZJxSJXvBJ ReZZ9XWzJtYNRoUKJ9OgPvHKEtIPZiwe8PZEVqNAAhEpI3NPSnFAMnNBAoASuiFQQxBEJ9PtL5WSSgTU DaCM5DUuVzVCLqIRn1BeInCAZaAWBkeu7RJXRjCNDtOHUjXoEeUXTcGYCfFFieSZOcJZE1OZu7VWGvWN IrGW0OIwDsKBBzXIs4QvLwTERxQAKvcq8WVDGhLVNj WAN5QpCdTHCtBEPxGAfqBWYoFQSdRbT9PAAeRAQgHT8AWeWcAUOrZcW3FVUqCFKlOYQwcs5RSHPcCLZj NXegOISzKANvWCKyZVp9htRtlMEeMDs9MM4JW4QiebUyGlPOXr6Wd581UEQ3PUGlCs5DV1blJg0tKNAv TFFIOq4HJUn2CVKrJLOfMHV8OdiqYNTbPhV5WSyqXk UwMzkxYjUwYmU+QMhgSASsNVR8TkWfVcO8TEZiZLB4QbFoHNNoDLJrRYWoQK8tJDGDNi8+DQpzdGFydH cjLZSMQkKiFKg7FXuiMJZTWv6C ID Date Data Source [id number] 03/19/2021 01:34:18 PM EDT [facility] Name Value Range Interpretation Code Description Data Yany rce(s) Supporting Document(s) Procedures [facility] h System TLCJAr7yCoEXFsTs19/VMMpnBPLxi7QhCQnoMJv6AOdhKMIyC7FmADK1fD1oIUW1QViNFhZxQrOxDIN0 lbm [file] ICAgICAgICAgICAgICAgICAgICAgICAgICAgICAgIC AgICAgICAgICAgICAgICAgICAgICAgICAgICAgICAgICAgICAgICAgICAgICAgICAgICAgICAgDQogIC AgICAgICAgICAgICAgICAgICAgICAgICAgICAgICAgICAgICAgICAgICAgICAgICAgICAgICAgICAgIC AgICAgICAgICAgICAgICAgICAgICAgICAgICAgICAg ICAgICAgDQogICAgICAgICAgICAgICAgICAgICAgICAgICAgICAgICAgICAgICAgICAgICAgICAgICAg ICAgICAgICAgICAgICAgICAgICAgICAgICAgICAgICAgICAgICAgICAgICAgICAgDQogICAgICAgICAg ICAgICAgICAgICAgICAgICAgICAgICAgICAgICAgIC AgICAgICAgICAgICAgICAgICAgICAgICAgICAgICAgICAgICAgICAgICAgICAgICAgICAgICAgICAgDQ ogICAgICAgICAgICAgICAgICAgICAgICAgICAgICAgICAgICAgICAgICAgICAgICAgICAgICAgICAgIC AgICAgICAgICAgICAgICAgICAgICAgICAgICAgICAg ICAgICAgICAgDQogICAgICAgICAgICAgICAgICAgICAgICAgICAgICAgICAgICAgICAgICAgICAgICAg ICAgICAgICAgICAgICAgICAgICAgICAgICAgICAgICAgICAgICAgICAgICAgICAgICAgDQogICAgICAg ICAgICAgICAgICAgICAgICAgICAgICAgICAgICAgIC AgICAgICAgICAgICAgICAgICAgICAgICAgICAgICAgICAgICAgICAgICAgICAgICAgICAgICAgICAgIC AgDQogICAgICAgICAgICAgICAgICAgICAgICAgICAgICAgICAgICAgICAgICAgICAgICAgICAgICAgIC AgICAgICAgICAgICAgICAgICAgICAgICAgICAgICAg ICAgICAgICAgICAgDQogICAgICAgICAgICAgICAgICAgICAgICAgICAgICAgICAgICAgICAgICAgICAg ICAgICAgICAgICAgICAgICAgICAgICAgICAgICAgICAgICAgICAgICAgICAgICAgICAgICAgDQogICAg ICAgICAgICAgICAgICAgICAgICAgICAgICAgICAgIC AgICAgICAgICAgICAgICAgICAgICAgICAgICAgICAgICAgICAgICAgICAgICAgICAgICAgICAgICAgIC SvEDXwVLl8V3yqCCGfYQSmLY3mRSc4Zb1+ISrJKlQcPCT8ddOazS4YRR3lr6GiREffHXIzf1VnQAy4XK 1CKJCySVnvJV2VTFyvdc5PDKZxZUOpnPZUf4beApUa CPP5ABLxJgrnOT2RIJYuA4anfdYfTNXlYBDARUoeUXXQDWidLOIJXU5SHyJcA0DdkS63BQTXFj8+DQpl kzEtMclPNnJ2BRJlu3NxVZm0GF8PWCVhHwnyh3BrYbqoMGVLIEsiXI4WIKA2LSX8EQWrIx7IRUXpR749 ovQtNX6CNy5QNpJhZG3pms9TLkenCEQhGtyBAmb2IS wiXG2ScSQhSFrOnj5tEJW0diQlVYIfJ38lQASewYKLOLNwOJDllfjcRKAuppuzPL1sLTExSZ9jKL1bTE JiEQLwVcY8FHQLFH8NPBQdQTCdmLUdCEPnNWDSOX4JAVjjYHG9OowclxNotEReWTtaSJ2NOZZntuHnUe YgMCBSDQo+Lb9QGM6qe4HaGNeeGMGzIE2psv8RMEhT HrWbM3Q4xRNfF5D3TEfvMv3QAFMoRQZtEvUyHLLHMRqrIG2WTS1kaoL5YI8VfLIeTIOfOUQiwZKnSAn7 L03bzHExZDyrDJ5OWCS+Frantz+Xy1EBJJxHDZlTIKnPaTlOOVMBmBwD1CfV9SGe9YiI3AoAI04hSybqmRv XYdqEN8INZ9rNTHfEXEQFY9ZjMHlbK7khgSoNzTjKE TVJtNxR02ytFSzJQKtENF3LHTkIo5TJCYkE9MjwdMffWfmixYkOSDwQATUUL3ILNfssxXacJWmkZjcFH 36rLprAB5NAu0VNhSzSK1zdf6FdVNbWi8QDBZxBC7JAAQhZQGnEPApXAS1HDDzNpQbMMylWWHpYQScMX Y2QTRqRQMbEW2BOwMxRGQnTfDjZVjpMYJtXSHats8A PWJrEWWgLjn5EOJnEFEkCYChCWenESWyCKIuCBY6PTPbJXZvLH2HHjKmUUAdHIRtWOBnDOAbQDAocz8F NBLnRVGoPpD7AIAuEXLvNRXfOEowPPNeHFO5GHVfXDMiSJDhPG6YRuKbGTKyMEHwHNXjOTKhEWXtci9K XOHeRGAaTIG5MHPmPOQgVCPfHWtpETJnIRL5UUc2MR ShBTCuEH2YLpOrOJFzWRR8WSSkPKPeMBPbrx8OMMKxDOVhRmN6MvUlTTIbBRTbCZifVOTqDHB7InF2GS UkDRNqOG5MGgBzUYJgGPalVBVdUUNwNJGvnf4KVJPtWBKtTsG7RJMqNRRlUNMrJIzmNIPzSXH8QTf0GQ VpERXsIK6DLnFdNBYiPYl0TnUuWVJrWZWoez5SRTAb ADQuZPUtQXRgZNEgVBWlDXypWIMvSNCcWDM9CLFtIZIaZT3KVoEdJLBiNjB2WQlbDBGiROWsgc7KQFEy GASiCPbzUMIiJQFzKYPzMDsuNTGrUYCeHqk0SNCdRAUzKJ8FDtNkIXMfHkN0QiVsGSQfJIJsux4RWVVu VWAwIgDhGjRnDINaZEInMKvtUVNgHEDcJJQ1MYRjLT NbZJ7JOaQdLNHeQtVyEILmLIMvIAZymu7WVMVhSEMlRJC6LIZiYJZlFAJoHPsvERWyZMM4PjU9DXPaJV LjKY2KFjLxPTmkRRZXMxw7VGgnY5i0QNGkNZ7IC4Yxd7CrLvmfZLBEOSxhRH4dyjAnSPSkBe4ON5dFUh qgUhV7JrFzGCz9SzhqNQX4KYclLWT3DvFeRKRmGBW0 Jh1uXXKjSiwqEgF4UKToPNL2SEhpQJF5RrHuPEHcMFTfHCWzSwJlHI3EHt9GAyF7NTB5vFPwQh1VIpG9 AePCZtQoEV7YAHe= ID Date Data Source [id number] 03/19/2021 01:32:02 PM EDT [facility] Name Value Range Interpretation Code Description Data Yany rce(s) Supporting Document(s) Progress Notes [facility] System JBPJAq6oJvTELpOf67/SSKqwAUYnj8UzMBtjBBw3ZHonNFRvT3SfVCL7bZ0cZRS3FTzRGeKbUjMsAEK8 lbm [file] nbFIHZFwP8NME3VVpbWNZGJy0Z ID Date Data Source [id number] 04/15/2021 09:32:00 AM EDT [facility] [address] [place] [address] [employer] [facility] CLIA# [id number] Surgical Pathology ReportPATIENT: SHAHEEN DAY CASE NUMBER:[id number] #: [id number] Date Collected:03/19/2021ccount #: [id number] Date Received:03/19/2021OB: 1950 Age: 70 y.o. Date [...] Analysis NTRK 1, 2, 3 report from [facility] (Accession/Case No: [id number]).LDM/gf 04/12/2021n addendum is issued to include the Molecular Genetics MSI by PCR, Molecular Genetics KRAS Mutation Analysis, Molecular Genetics NRAS Mutation Analysis and Histology Analysis HER2 Colorectal reports from [facility] (Accession/Case No: [id number], [id number], [id number], [id number]).LDM/kb 04/11/2021n addendum is issued to include the Molecular Genetics BRAF Mutation Analysis report from [facility] (Accession/Case No: [id number]).LDM/kb04/11/2021n addendum was issued to include the Mismatch Repair (MMR) IHC Panel report from [facility] (Accession/Case No: [id number]).LDM/gf Electronically SignedBy:ICD: K51.90 Betty Owens, MDCPT: [id number] PathologistI ATTEST THAT THE ABOVE DIAGNOSIS IS BASED UPON MY PERSONAL MICROSCOPIC EXAMINATION OF THE SLIDES (AND/OR OTHER MATERIAL), AND THAT I HAVE REVIEWED AND APPROVED THIS REPORT.PERFORMED AT: [facility] [address] [place], [place] [address]THE TECHNICAL COMPONENT WAS PERFORMED AT [facility], [address] [place] [address].[employer]: BETTY OWENS M.D. IA# [id number].SHAHEEN DAY Page 1 of 14HOUSE, SHAHEEN [id number], SHAHEEN Page 2 of 14HOUSE, SHAHEEN [id number], SHAHEEN Page 3 of 14HOUSE, SHAHEEN [id number], SHAHEEN Page 4 of 14HOUSE, SHAHEEN [id number], SHAHEEN Page 5 of 14HOUSE, SHAHEEN [id number], SHAHEEN Page 6 of 14HOUSE, SHAHEEN [id number], SHAHEEN Page 7 of 14HOUSE, SHAHEEN [id number], SHAHEEN Page 8 of [facility], SHAHEEN [id number], SHAHEEN Page 9 of 14HOUSE, SHA[place] [id number], SHAHEEN Page 10 of 14HOUSE, SHAHE[place] [id number], SHAHEEN Page 11 of 14HOUSE, [place]HE[place] [id number], SHAHEEN Page 12 of 14HOUSE, [place] [id number], MICHAEL Page 13 of 14SHAHEEN [id number] DAY Page 14 of 14 Name Value Range Interpretation Code Description Data Yany rce(s) Supporting Document(s) ID Date Data Source [id number] 03/19/2021 12:24:24 PM EDT [facility] Name Value Range Interpretation Code Description Data Yany rce(s) Supporting Document(s) Progress Notes [facility] XGHUJq1rHhIAEyOi30/ITZvvEFNla1NcKFaxHIr4JEcyJTFoO4KoBAD9aC3aPMC2FDcWBaSqTwUxXTN5 lbm [file] L5Rty9QOy+QK9nSHs+Ra2Ny2GalrH0uoPuRTctANM3OE2IXPXKT7TCDd== ID Date Data Source [id number] 03/19/2021 12:11:13 PM EDT [facility] Name Value Range Interpretation Code Description Data Yany rce(s) Supporting Document(s) Progress Notes [facility] TYUXEa1vAvCDHpPs85/BKFlmUGDre7GjQRagPOv8MNxlJXOlX3BhDPD1zB7qCBK3QCyLUuWmSzBbSRW5 lbm [file] YyH0El4pMOMJGm1+GAbyfNLrsXgtUCVTQkA6OYa6JErpZKDVSx2P ID Date Data Source [id number] 03/19/2021 11:20:49 AM EDT [facility] Name Value Range Interpretation Code Description Data Yany rce(s) Supporting Document(s) Anesthesia Preprocedure Evaluation [facility] ISFGDq6qXcSWJdJg19/TCClkXKHbv5VdFMveFCo7HMgrJFSuL0CnJLL2fH8uALQ9HOqVGrVkWgAiHZL5 lbm [file] MgVEB7ILW7BFQtWNvvW8WkHeHeMAOmIL0wCMMACk9+KGllpOWxqQdcHMCYUfW1OlBnGQlbUJBGMe0T ID Date Data Source [id number] 03/19/2021 09:50:01 AM EDT [facility] Name Value Range Interpretation Code Description Data Yany rce(s) Supporting Document(s) Care Plan [facility] XZGYVa7aHkCMOwEq45/FRAunWNLni3ClSQxeGYe6NChnDCOqJ3YzKDP9oS2bFJU4FFuJThNiOwNnIPC7 lbm [file] AgICAgICAgICAgICAgICAgICAgICAgICAgICAgICAgICAgICAgICAgICAgICAgICAgICAgICAgICAgIC AjGTVqSXLuSRNvBCClZQMgDNKcVRIxCURbVW1RMXTrISQuKZEpVSTyEXRfVVZxTTVzUEKdGBMaIHQuRV AgICAgICAgICAgICAgICAgICAgICAgICAgICAgICAg IBEbTYLxMVRyBNJdGPThTVXzNGCoRXYsOBNyJJVbMSWpLWGwFQ7YDZIsWXZwXSXdWEHmIDEfWZUvMDKy ICAgICAgICAgICAgICAgICAgICAgICAgICAgICAgICAgICAgICAgICAgICAgICAgICAgICAgICAgICAg QLRpEKWgQUBwQVJhNBItJFEkXO9QRSWwPWAtNIZvFW AgICAgICAgICAgICAgICAgICAgICAgICAgICAgICAgICAgICAgICAgICAgICAgICAgICAgICAgICAgIC ReTDHhCUVuXYJhTGNeSHEkMTYvMBOaYWWaZMCmAN4DLOKtHFCwTXTgETAwFBMnYZBwHQKwAOXwANKfFT AgICAgICAgICAgICAgICAgICAgICAgICAgICAgICAg XXOfOYKuPNVxOZEfLFJrLOYgOUTvWGPvWATjQANkZTKjYAEeJBGbRH1GFUWnULHjCYEcVCSyCADuBQVl ICAgICAgICAgICAgICAgICAgICAgICAgICAgICAgICAgICAgICAgICAgICAgICAgICAgICAgICAgICAg WQTaWTWoCBItQZAoJETpRWSxPIHiWQ8JYRHwDRGoAB AgICAgICAgICAgICAgICAgICAgICAgICAgICAgICAgICAgICAgICAgICAgICAgICAgICAgICAgICAgIC OuNAAkUQXpHPIdUWEqOXGjFBQcUTAzENUvTDEmQZKjAF1MZNCfVJAdJGTgDHUpJPFvCYCrVSEhQRBmVW AgICAgICAgICAgICAgICAgICAgICAgICAgICAgICAg YNFrKNXeAFSzBMVfOWWtHHLpUXLkGEBbBELoMLLmUOGsUTKzYJAfLOVoVH5BZEFlXPFkHFGiZYCgEVBm ICAgICAgICAgICAgICAgICAgICAgICAgICAgICAgICAgICAgICAgICAgICAgICAgICAgICAgICAgICAg PHXuIDMgOZNlDCQrDAGqYZSvGGNbSETiPA4TFWRjNT AgICAgICAgICAgICAgICAgICAgICAgICAgICAgICAgICAgICAgICAgICAgICAgICAgICAgICAgICAgIC VlUCLoAYHgUBYeQGCxKRObNXNePNMtBXQwXQNmSSXiVKNxHR4XVJ19hCKxz8G7TUJoMQ3nwqy/Pg0KDQ wjupCmfTChRQ4RVgVuWM8nlm2THqTlRF3qiv8UWElE UkQiN8T8wGXfQZNiQHYUTfPiZ07hXYcvFb59POrnZPWiDcRfMNz8Gf8ZYbCqZ2jzVXEhZhC8VZKjFvZ7 JELkGoXtXKebHO5Lc5KdeHAvZAc+Wd4IMG2cm5BeTOtyLHFwAJ8rww5TDKfEDrIuE4AwbcY8XBL3LWTh Xs2MTUXqPPNyuUItDzIcAOOFNuOyN1VzrT00KGCCKp 4+ZAlsapMzOygEYrJ3MFYkt7XtRUw7UL2JPVHhOBg4sREjT4QaYNLDuOCsDBP7HFPoeF3qJSBgek9eQx pmZm8tXGLwIU9uXL8jPSAoWVQ0BiV9IFDLEY1QTPUuOTByaYRoMNPeYHZOQI8AGEosODH0IwsdsxGonF UeNSjfVL8IKBCinkRwToOoDDPLKXi+Cv2AEC2mb2Ue ZNtnUjLjWY1nfy5SNBvSJvDaN0I2iVOxU1Y6PZepGu9DWAOnGTGzIiLeDPASYWuyAU0RAW2drtR4QP7K eGJpQUQjDRHklZSnYDt7V20usIQiUDvmYB3LPEB+Frantz+Aq2XBIRfPAMfFOXuXuRuDTHJPuYhV7VjG2GR h2LhX1KuNX27vAnqkyFpLGlxQL1OYE3uFCKvCBGVOK 9PdMLpnD5zziFbQTDoFVIIAvGxF83hySEcGAUlOKM7ZKWzZd9RVIXsA3RcqwRxoWnqthWcNCXkYUGIKF 0GWLcumbVyvEFghGfaOY73nVjyTP5NQp9MOkAkKW7lxi1RqBTbDl9UAJZqDW8ROMTaKPGqDJHfIBZ3UP OePuFuYPwoNLUzIDHyJRY9RYApRPOrPW3IMyIzHSGm FEFoMJByBEGgOJBkdz1DXTEmXPH6SZF0MFJnOITnDEQuIYtlGXCyYROaWXF2VXGcMWIkQB7LRuNqJKNu IMP8TODlXFByMBYafd8LYJKtHVTeKlu7NsQiIOHsDFZvRGzoNLKsIDJ3QBFkHGAjANWtRP5VOlLrXPOt NHKmSTRdNRDnDFXtxu3WKQJbUCAyBaP5QnCsMFJsGN PnXTbcLRNoMUD9TAnkNVIhGPEeRP8QBeCnFJYsZSz9CZjrUKXjFHNpwk8JOABfUITfWHZhZMCqQRVeRY ItGKqvFQQcEAK9ZGP5MRBwPYLzAV1WRfOrEOZbNSw3OAxaNUXjGGWnzb4QTEHiVBUfXWT1HDVjIGIdVS VfWIiaECZsRWCtUzF3KHRtQJQeHB4OLzKnDVXiWiZ1 LqUjEBAbCOFeeb2QOCSaWTWpUsPdFrBiTYHvBHXqTGgdDLPiOQIvAzZ2VNVyIDMgJE2UQrLrOIHdJcJc DBNwXJRwIVLbam3ESQKdEAWaLsX9CILfLZJeESSsTNhaWNYiPQPaNRp5XRCnWNQiYV0RIkKxZUCiOaN2 LhoaMNPgGEIegh7GKRRcLWYyMWknMnQyAYJsPVXxAS hsQEBdXPJ1SIt5FTGeCSFpYE6CSySxOXXgVXN0LoJkPRVvUYYsmj6KZWHiOPM8ZYT6JQEtMPAyZCFdZE kyYWHoSHX0PkLhJNZeANHoFR1YInMyMBIpQKH1MNKcVKWhMVBydv3JKGDnHQJ9PCN5RWGsZMGgTYWyAU smWGWuBYS2COZiLBUyINMpER9JPpJaFPBfEHHnPCjf ASNmUCTrqd1QOORjOPZ5KbN4ZMQcXPVnOZPjZQizTXOoQTC1ODR8ONCtMUVgCA1MRmMoEBLrBLboKrcy QHFpXZVzfu1RZIRoOYT0DCH6QKHtTYDyMMEuBBvbGZJfCXB9JHeoZVVrBPWyLF8XCnRzZYrmQDGMYsa0 ZGaiQ8g9QZCwKS9HT8Tqx1EoOyrwUHVOTFlyQF6bmj WwVDXwYs1NM4iJLis6KJi0GbMaJ8GnR6BvHJV2WSH0IjCiEON7DrLqVBP7YS1iWGI0MkW1C5KgRhPgLq YxXdwcHMWgIwK9OXqvFLMtOzgoBzUoGX0VHy1DWzE9APP8qMIpRe2CPOv5ScMNYwRpGO0FCAe= ID Date Data Source [id number] 03/19/2021 04:50:07 AM EDT [facility] Name Value Range Interpretation Code Description Data Yany rce(s) Supporting Document(s) Nursing Note [facility] TSUFHt9uCwMOMxOa71/KBUflWCHod1MgOAbiXYu8DGdvOARlX5LxXRW8uN4jAFQ9NNuBOvJkLcHpYBH5 lbm [file] /jose daniel/hRxBBNmPM9otpcNqRDzt7kCjOWQ6TdaUnL7Q1Nkf0uJWc1tdo2Dqa4Vfdzz1t87v2QgEYWZ7TaR [file] ID Date Data Source [id number] 03/19/2021 05:35:00 AM EDT [facility] Name Value Range Interpretation Code Description Data Yany rce(s) Supporting Document(s) Phenytoin 8.8 ug/ml 10.0-20.0 Below low normal [facility] The above 1 analytes were performed by [facility] [id number] [facility], ,[place] [address] ID Date Data Source [id number] 03/19/2021 05:35:00 AM EDT [facility] Name Value Range Interpretation Code Description Data Yany rce(s) Supporting Document(s) Digoxin 0.80 ng/ml 0.80-2.00 Normal (applies to non-numeric resul ts) [facility] The above 1 analytes were performed by [facility] [id number] [facility], ,[place] [address] ID Date Data Source [id number] 03/19/2021 05:35:00 AM EDT [facility] Name Value Range Interpretation Code Description Data Yany rce(s) Supporting Document(s) Phenobarbital 30.3 ug/ml 15.0-40.0 Normal (applies to non-numeric re sults) [facility] The above 1 analytes were performed by [facility] [id number] [facility], ,[place] [address] ID Date Data Source [id number] 03/19/2021 01:20:53 AM EDT [facility] Name Value Range Interpretation Code Description Data Yany rce(s) Supporting Document(s) Care Plan [facility] RAILYb5jIxVKEiBa01/CBVekUVFne1ZkXGunRNm2IYhiSLSgT6GsXNQ9cE4aVWD3JOcZXcUlFuMaJCO3 lbm [file] XMK5ERPnUf2fQDLRCi9+CGmyfLDtmCxdOOGWKfO9MUcmIUieBLEDWl7P ID Date Data Source [id number] 03/18/2021 06:23:12 PM EDT [facility] Name Value Range Interpretation Code Description Data Yany rce(s) Supporting Document(s) Nursing Note [facility] YDUCGj3sQeNIEeWf07/FNIwgONAkm8SfSVimWEb0LIhgLGQzA3ZcHXT0kJ8dEPF4VIkAKgDqQuBrHSW3 lbm [file] ICAgICAgICAgICAgICAgICAgICAgICAgICAgICAgIC OmKQCaFUYyIYCmTWSfLCWuSCCnXGJjTV7LUIYwTUOjMTTiTZIcSNCjKLFbEVZxQOUsYKTfYTUmQCMiJD AgICAgICAgICAgICAgICAgICAgICAgICAgICAgICAgICAgICAgICAgICAgICAgICAgICAgICAgICAgIC CiNCOjHB9GHIJpLEQuTIJpLHIuHTOsBSLyKGUhSRWb ICAgICAgICAgICAgICAgICAgICAgICAgICAgICAgICAgICAgICAgICAgICAgICAgICAgICAgICAgICAg ZWOcCDGcMELnBNAtFXUzLT1QNFCnXBEzLCSbMOQzROMwKAPvYVCmVTVvITHdYDOrXIRwUYPpKWVpJKRk ICAgICAgICAgICAgICAgICAgICAgICAgICAgICAgIC HiFRTwUENcZUPnOTChTDXfZWOlFSJdIPWqEN8AXYXeHVQcLZLhUGEdJCLiFALqQRLtPNBrROHqTWNyOE AgICAgICAgICAgICAgICAgICAgICAgICAgICAgICAgICAgICAgICAgICAgICAgICAgICAgICAgICAgIC CkDUZwBKUtRS8ZZHWhEUZcHQCzNYMnYNFuTCInBBJg ICAgICAgICAgICAgICAgICAgICAgICAgICAgICAgICAgICAgICAgICAgICAgICAgICAgICAgICAgICAg FCQdTGPjNVJvYDCdKDRzQDDgOB1XJZImDFNaXFJoLZDeYOWvFRRrHGTuXADnFCYnAGDvQBLhPBNfREBw ICAgICAgICAgICAgICAgICAgICAgICAgICAgICAgIC DqEGWcNXAwKDEtWFJqBWTiIEQhQQYmMISoCYMvCY5GSSLcAXJzBRPuVUUtNBZpBOSeAKSfUTWiLZPeEI AgICAgICAgICAgICAgICAgICAgICAgICAgICAgICAgICAgICAgICAgICAgICAgICAgICAgICAgICAgIC TyWIJyQJItZCHjQD1XLWEgBRZrUYLxRJIeHIQsLPXt ICAgICAgICAgICAgICAgICAgICAgICAgICAgICAgICAgICAgICAgICAgICAgICAgICAgICAgICAgICAg HMGxOWEzMLNcAUOgFRIjLRHfRZWrMV6TLPAlWAXaULUdRMRkHSNvYDPzOMQuEFMgDNFqZDHuHTXsMXSd ICAgICAgICAgICAgICAgICAgICAgICAgICAgICAgIC BpVIMmNJUaLDWnGTDtKETcDZFoUTDkWIEkUNWmKXJmHM0BBB56kIYrk3X7DPIxAP5guya/Lr8FVPqtks XyaGCzMX3ZDlRtIN8idy5ESsRlLO8hvv5RFNmODeFlE0C9uGKcFKWyYGBVBcPjR03tHQirRj39KOlpIJ QoNwUiUTt8Mb2XIlOgP4bhVFIgYjD5BGPeCnOyUEgr UF2Et2UlqICoWWj+Lt9ZOL8pg6HlMEelBbGvYQ7cdf8NURmAPjKhW5BpdsX5TGGrAAKwPx9AJRAiONAt uFCbOzPkMGLJKdZiQ4GyyE77MCGKNc7+TFvikwTgXsoIZmGzZKNlx2GjRUx5XC8XAFYmNYl9lFNeLyQu k4wfJzWOg0GwAPP8NDVppW3hISHnob8tSzttFs6iVK UePV6sTy1lQMHeWMR9TrPbOQQEBH6FXXXjFKQedBRoWPHdVOYRPC5QCXneZFP5PjmzarHbzRFeVTwrBJ 9QYXJlbnQgMjIgMCBSDQo+Np2MZI8ri1IjXRroBIZvHV6kgw9XGEvOAjGbI0E9lOGhK3V3GLkiLw9ZKC HeZZWlMjApMUANDWbgUA0YYB6szwY5TS7UvNWhSSTw LHOgaNSeULm9Q45lkVNkBWhrQR5HOZP+Frantz+Ri2PJJEeRSTvOGAbYaNqTBXWPdOjT3QpR2NWl8ZfN1Cm OS11nHbpqpCnBEaeAP1JWW3wJJIvETGCZR3IpODvtP4tnqCfKeLgBXFKNcIjY63fmMPrYDClOVJmCDJh Le2BAFZvM1OkcbJfmUmdeiIdUJMnOFPPFZ1CUMfvwp PjmKErtOxuIS23vUhtYF9XAk4NPwDeXR0rjd2BuUFbFe9EPLUlHH9PMSYvMCXgJMRpQFV3KDWfFvPnMA idMGMtKAJbDMM2YVTiKGCeFO5PMiSlJEVxKVc9WOLsVYCrZGZdcg9OFUYtBVDsSSKaOJTxCPEsHIImBP klWYNfVYWlNQT5AYKrSFSjZI3WGsEiKGVgQWZrBuye VRCeXBXgva9CNGDzSESsDWCjYUBxOTGoQYQvSNvbIBAtZEBdWTe8GMWaDLIgIE7QXmJxXDUmLTZ0VZVi XZCwGLUsxf6QSOCsJWPhErv5FARoAWMwIKFgSAikOFOzJEHtGUD5JOXtVQPeQJ9MDbRlNGDsCIOaOyDt CJKlUVNjdl1ULRWtEYCoILPyQnMwZRIvXVBoZAswLX BiAFO3HUUcIBZuSYKwTR9CMiYmBZHmNKK5IbkkDOZeQAJyny4MVYVeXLCkBiJ8VnSpYYIkOAMhGAfiFU OzZKZ4PcK0NIBoORCtOD7PEbNyXQEcZCv4IoUnFMFgBKJfdm1RIRNdQQBySWTvHZWcJDCdAVXcTDgpQD BuLNA9PgJnDOVqMIHnTK7MDyStYZQnGRp1TxFzPTDs RKVywb4KMOKpYVSaIWI4NSUfRYBsCIQuPXwhUKUqHKKpLoJ0DEWgDJKfYF7CWlUrJGZdQfI8MRenLALr JWLlao6SYHBoTGRwTAi4CdXbDNPuLYBhKBf2pgNapVZdYBu2FW6ES3IwybIjHkQKJb0Ke989KID0MKDq Dd7XL8gqDi5rVXArOHDMNw4UNHr8ACz7RQHmAvRtQu RxFvvwPHFxSls3D5GhULPyVmW6CoK+EGsmBMv7I8E2HaV6IBQwTURtAXUlQNy1HxY7P1ZqFaOgIK7kYZ ANCj4+CGxljABvhFisUNQXWzEwDIq8IZcgYBJKGm4S ID Date Data Source [id number] 03/18/2021 03:59:49 PM EDT [facility] Name Value Range Interpretation Code Description Data Yany rce(s) Supporting Document(s) Progress Notes [facility] CEVINk6fBwTJMwNq33/PIWayLNFro0YeKLlpSDu0APuuCJZeI2UlJQM3rN6yFWZ6EPgPNjCrBdQvNYU0 lbm [file] T0YNCg== ID Date Data Source [id number] 03/18/2021 03:36:32 PM EDT [facility] Name Value Range Interpretation Code Description Data Yany rce(s) Supporting Document(s) Progress Notes [facility] SNFMZc4pHlYRKjWg95/XEXrsRUKun7DfFPtqHWu6XUpfUYNlI9JrDSE8cU9eXYN2AQtYLxWkIyErXBX8 lbm KnPwcKUsQaEDSxNgxSUmDuQNpfPlamzATsWI5MjLE2BLNxX13pIFTsUVXsZ7CbQVGuJSQ+Mi0QGAAccQ MvVH7AYpsY7Pzbo6k9SZ4zhL/JvfWdMe8KDjDS8YL2AJM7lzP6nn2qGU8Gt1pyn1K//PgUXd4HNNBbqR IzzTiIto4k7qV8OQerjY/7uvkrLSrh5c/gDeiAoh3B jz+Bushn8mL+GxmPaiFTGZ0xdWbCxL4TzZObt+kiVfdFThICs5cSn2MskOXINARCJrSfUuXgBca1cvH/ 8QW3qyGaM4faDzsbPM8+9rInM1fr6whrdbW/ibEsAERAC6VugQ1rfVJjI90bYNpRMalAF8aDiFZjTT10 3XGCtmn4fITpI3EX1d4OXYctKibak+3G84INOg2K9H OKRzHvUZiIgFjbuyvuqzsQomRSBJE6YY215GOdI2JsBXsuJKxZMZwzyBBUaEILW4LwsxVftm0F5Vy/mu /XcqxtOUrmRDGj+/1lXGOZ9S9oct/As7ndv3WhZADE2RSfggDrWGPbQU4NTlI8/MAmEysKq74E8fBB48 xyMopH0ToanjDZ3lEEoQDp8CFav5Cape27DXKNxy/Q nlsJmJx5blgeuqRwo6C9Q//5L5K/P5x+lgZUN3Obv0yN0s79N9viVf6dceSBZEYpEkSB6T2L8Nrst9A1 8wtWTUDV1b4lPO0gK5bKGPSLYQOg0amW1yS+4f+m+nm3XTkq8y3up4L79uGkIxW44MBqiChiZzz/W7+m /3jwu7yX2z2CjQslHis9f/s8lC0NwsFgXALmcDluKb 9rtM16/MiedBsfoSDWm7NG0zDtgiogIkY7jPPl+/TE5MbeYTVHB5f37KYgwPR8QWjv5ssmJVl8sLqyJC KHwU4ecw49vJTDFIX9304qKPlhDyFVMBcvcW3LvILAjX6yHbC7hE6IZpU0Dle5MNwpf3GWXd9roP7gxF lMihKd2lXgleVnwHKeNL2FVN2zVWY70c2Pm/c3kYWL qROvfzxOuhEV8pP/UtSD8AFsrvNE2YaF5qXfCwRJbMm6NRttSWtYAebdhHPO8AVawlIWF1Mjt28gx/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 [file] 4LZP40Tw/jose daniel/mTfBIUsWS6qoksTdJWzu8nUuLKA3F [file] DiYuIoXMPkHwJI5MKLn= ID Date Data Source [id number] 03/18/2021 02:07:43 PM EDT [facility] Name Value Range Interpretation Code Description Data Yany rce(s) Supporting Document(s) Progress Notes [facility] QXKNLm5iJyXNLmNm63/FLVoyVEAlb8HhTIatLRi5SKglSUFvJ9IvDBS1mF7kXFL5ILpNWbEcZoUjNFV7 lbm [file] AgICAgICAgICAgICAgICAgICAgICAgICAgICAgICAgICAgICAgICAgICAgICAgICAgICAgICAgICAgDQ ogICAgICAgICAgICAgICAgICAgICAgICAgICAgICAg ICAgICAgICAgICAgICAgICAgICAgICAgICAgICAgICAgICAgICAgICAgICAgICAgICAgICAgICAgICAg ICAgICAgICAgDQogICAgICAgICAgICAgICAgICAgICAgICAgICAgICAgICAgICAgICAgICAgICAgICAg ICAgICAgICAgICAgICAgICAgICAgICAgICAgICAgIC AgICAgICAgICAgICAgICAgICAgDQogICAgICAgICAgICAgICAgICAgICAgICAgICAgICAgICAgICAgIC AgICAgICAgICAgICAgICAgICAgICAgICAgICAgICAgICAgICAgICAgICAgICAgICAgICAgICAgICAgIC AgDQogICAgICAgICAgICAgICAgICAgICAgICAgICAg ICAgICAgICAgICAgICAgICAgICAgICAgICAgICAgICAgICAgICAgICAgICAgICAgICAgICAgICAgICAg ICAgICAgICAgICAgDQogICAgICAgICAgICAgICAgICAgICAgICAgICAgICAgICAgICAgICAgICAgICAg ICAgICAgICAgICAgICAgICAgICAgICAgICAgICAgIC AgICAgICAgICAgICAgICAgICAgICAgDQogICAgICAgICAgICAgICAgICAgICAgICAgICAgICAgICAgIC AgICAgICAgICAgICAgICAgICAgICAgICAgICAgICAgICAgICAgICAgICAgICAgICAgICAgICAgICAgIC AgICAgDQogICAgICAgICAgICAgICAgICAgICAgICAg ICAgICAgICAgICAgICAgICAgICAgICAgICAgICAgICAgICAgICAgICAgICAgICAgICAgICAgICAgICAg ICAgICAgICAgICAgICAgDQogICAgICAgICAgICAgICAgICAgICAgICAgICAgICAgICAgICAgICAgICAg ICAgICAgICAgICAgICAgICAgICAgICAgICAgICAgIC AgICAgICAgICAgICAgICAgICAgICAgICAgDQogICAgICAgICAgICAgICAgICAgICAgICAgICAgICAgIC AgICAgICAgICAgICAgICAgICAgICAgICAgICAgICAgICAgICAgICAgICAgICAgICAgICAgICAgICAgIC FaYZHtCZXjICh3G9rvFTEyKRJrRP1rBLv4Mg0+DQoN OuLgQAP5mvYghW6GUK2tl9NwJImlGLKrw7HeUWg6BC3PSGNyGCuiWQ0XYZpwuk2LINAwMIJahHVEm2kq FeFaQWY6CQFnDcliHE5GMXAhM0tavgCnRWHqJGXYNQ8KBhEwV9KveF43GEZVZo8+DQplbmRvYmoNCjIy LMNsr7MzQDc7KX3SXIYyItnnh0WjTuZoOLZYXUnmWG 8RIZD8MGUePWGoVj6HONSuS088mnLmVT8NKj7QZeXcKZ9omi2ZRpPmQWKpLbjZAok6GGssPJ4HsKUmIT kYdm8ugkDumaOEv6EjeuPssCQHwJQhcEIhjMKxZbQrB8EdzxrdR6WxONRqHO8qWe2mHXEfMSMbNrT5FW ZXCV2IDHUfHVIwkPDoBRJrHTHUDD9TQAjbJNI4Jxsf nxLinIIkDOckKW6SNVKijpZkYkHeULPJWMr+Sy7PUB6es7UrPRvlNZJvOB3evk4PAOdJCeMsR1D8mIKb W1A5XDdvEg9PQWDlHTDcOuVjGKSTGWmxPN1LOM7qnrE1QL2SlIFvUAYtUWUtwCYnXOh5G86omALuZAkr WE7OKLX+Frantz+Id2CWDDiCWLpBUYoFoDxRPZHCeJfU6 BkA8WRh5LgH4NqOD50hHednmSuUQxcBS4HWR9fNFFtIHINTB4AiQUtrO6fdjXmExGpQYRZBkZoV29gyT PeKYBhKSNmMJCxQx4DTYRfB0UjezUbfDtpmxYzPMJrWUJSWX6WMJcvsoUorFEjdRrwMM86wOkeAK2MZw 8YKhOtGN1kjh7IwSMaLl7NGOOaCM7EWFGmSSGsCWRd OOW4EPCvIvYdXEoeEAXgRHHlVKV2NDTaYZIaHX9UXnEeAIZiMKo2VQEySRFqFKWxqn8AWDTyOHGiKPGe KJFnWPKySGHqTNbuTCLiTMKhWAU9IOYhDRNqVH1SGcHeTVNaFJO8DYRpKYVtUJOlpi4EWABpXTQlWEBw ApFzXRReZFEwFIonMBOiUTZfKLg3GZLeTIEyKC8NAa XrLWGiDBO8PfTmIYMuUQKkzv6VFSLaBHUjAeq2ZTSpFZLzXGBcMVssSUKnLGGlPDZ3HXYyFLYcMM4YJd UiOAUiFDSuULSmYCFaNOAodj1YYZOkBLMnLAX3OAKsLDKvFNXcNWmvVXRxPJR7SeB4EJMzZJFvXA6RNz WdPJUkRSR6TfDvQQPaIGBdit1OFWNkDCDyAdU4BwOo OJMjLFHwGQyhVESnTYB1EDKmKKLwOVPwVH7QZuLmKCJvRCl9CHyzJENrANCplh2RHUWrQICeNVAzSwOo XRSgCGHaOLbuNNPxBOF2NkosOMXySEReYI2GCmFlKIVnCHb8WjrsHCHvRGRhou6BYFHiUZWpPEJ2SCJz UIEaLPHrZVydOOSbMXWtJfZoGDLkLGLtGY1YYdMdGC FkQzA2SUVpFXUgPBOikd3LNLJfBEHoVNn3UTQcOAVxXODjUPt4rfLysSOaLGh4QD3YS8GonpMeOoILWq 3Sn444LVX8XOTbJa4KQ6ciVx1nENMeKSRETv3EAEr4PTBxRcW6VPMiTMFsPMWmOHQlLAUdNQw3ReA4Wv MxMjU+MAjrIUSgUaMbAGWpEOAyZoY6ItZxIgE1XJA3 Smb1SyCtSW2qXENTGt5+SDteeUFmnByuQTSDKcApUIc8SNgzOFAMNy4G ID Date Data Source [id number] 04/20/2021 08:30:00 AM EDT [facility] See separate report. Results have been faxed to the ordering providerand any CC'd providers. [facility] Name Value Range Interpretation Code Description Data Yany rce(s) Supporting Document(s) TEST NAME standard l/l panel(24 markers) [facility] The above 2 analytes were performed by [facility] [employer] [place], [place] [id number] ID Date Data Source [id number] 03/18/2021 11:43:52 AM EDT [facility] Name Value Range Interpretation Code Description Data Yany rce(s) Supporting Document(s) Nursing Note [facility] PCFWWf2jIzPSKbSb39/ABLfdMJWhn0MpTTbfTQn5OFkqCABxK8EuOFG3wP6tZPH9BIkNKbLgBuFhZTP8 lbm [file] MmBpKNc14ssuccZRLnOpfS2SYA24Yu/jose daniel/gFpCUDfME6csxzOiIVge5eJaEMH7FdlMuS8G0Oou7yECc [file] DQogICAgICAgICAgICAgICAgICAgICAgICAgICAgICAgICAgICAgICAgICAgICAgICAgICAgICAgICAg ICAgICAgICAgICAgICAgICAgICAgICAgICAgICAgICAgICAgICAgICAgDQogICAgICAgICAgICAgICAg ICAgICAgICAgICAgICAgICAgICAgICAgICAgICAgIC AgICAgICAgICAgICAgICAgICAgICAgICAgICAgICAgICAgICAgICAgICAgICAgICAgICAgDQogICAgIC AgICAgICAgICAgICAgICAgICAgICAgICAgICAgICAgICAgICAgICAgICAgICAgICAgICAgICAgICAgIC AgICAgICAgICAgICAgICAgICAgICAgICAgICAgICAg ICAgDQogICAgICAgICAgICAgICAgICAgICAgICAgICAgICAgICAgICAgICAgICAgICAgICAgICAgICAg ICAgICAgICAgICAgICAgICAgICAgICAgICAgICAgICAgICAgICAgICAgICAgDQogICAgICAgICAgICAg ICAgICAgICAgICAgICAgICAgICAgICAgICAgICAgIC AgICAgICAgICAgICAgICAgICAgICAgICAgICAgICAgICAgICAgICAgICAgICAgICAgICAgICAgDQogIC AgICAgICAgICAgICAgICAgICAgICAgICAgICAgICAgICAgICAgICAgICAgICAgICAgICAgICAgICAgIC AgICAgICAgICAgICAgICAgICAgICAgICAgICAgICAg ICAgICAgDQogICAgICAgICAgICAgICAgICAgICAgICAgICAgICAgICAgICAgICAgICAgICAgICAgICAg ICAgICAgICAgICAgICAgICAgICAgICAgICAgICAgICAgICAgICAgICAgICAgICAgDQogICAgICAgICAg ICAgICAgICAgICAgICAgICAgICAgICAgICAgICAgIC AgICAgICAgICAgICAgICAgICAgICAgICAgICAgICAgICAgICAgICAgICAgICAgICAgICAgICAgICAgDQ ogICAgICAgICAgICAgICAgICAgICAgICAgICAgICAgICAgICAgICAgICAgICAgICAgICAgICAgICAgIC AgICAgICAgICAgICAgICAgICAgICAgICAgICAgICAg ICAgICAgICAgDQogICAgICAgICAgICAgICAgICAgICAgICAgICAgICAgICAgICAgICAgICAgICAgICAg RFOeQOMeETNgKRLqMSBkUHHqCSQwBSMiKBStPIIcARLzFVCkNOZhBRLhUJPhYLTcOIIjJFy6W3zcXCDz JKLiOD9jLUq5Sd1+UVtYEcLvYKZ5krNkjC2GLO2du3 BmTYfiHCEif7KhCVs8TI4VZXMqUItnDM3AAZniod7YBQOwHMGomRBRq8iuQyOrPTH2UKEyScotCC7MVG NbB1lbnjBaGVEdGOIOWH4SFyGzU9XkrV00MTAYEg9+NUaolvMkWlzQLhOtYHLbp7DxSHd8AM6HWCLgWi frf7YzLrVwPQAXBIonXG2DRWB5POXoFJOmEe9YMXWm H454uuMgLL5QSc4PHjMyCQ8bnh5MIrApUKAeHiyIEsl6NKmnIA7XuRGdGUcBjFRxbL1mAA7zfMWiLffn ABDrmXsqQLBxYMSmircoBg3fKFYhIQ4oBi9mHMRvOHSwSqLbJASFBP9SLHNvOXAgiQRqDISyWCCWDB2L FUbqDLM1JxhrltDidWWgLJpiLB2HGYIrwwZwWkFdJB BSDQo+Ui9QTA9pa0OtUPxvOSPfHV0orz6AGLxFVqYgI9H5sXXzA2R5ALdvNl5ZZCSuCPRxRpPlGWDCUF dsUS3MGY0xboO6QJ5OxKNmVPVxNRIljEAgKEz5A66cqAUhTGxqBH3SFQS+Frantz+Qt9SAHEiGCTyQQHuYp JgZZVHVnVzV3JxC1IAb7OrK1HbEP70aIihraTbPWqe TH4FPJ5oOZHnANCYQP7QxYNlyB5ngtFyYlKrIVZDVzCrR68ybAJfXROeFSRzIBUjTg9CGJAvR4BxeyTo wUwrnyTeVGTzGLFHZK8EYNzikjSwsGFvzLhrOS54fXaoYC1SFy4ZTvXfYH9bix4AnGTrTl0HXXLuZX0B VOTjAAFxDUUfJKN6YMMkUfIrVVddAWGyYTPgLYH2KA ReARIlXZ5LHxAsJJIkUXl8IHgxWHUqQIUboy1NUMZhFPIyGQE2DiAiFCLbUNAcALhgGQWmCAKmAIK5GS YjUBRwYO1FZsIgCXGeUVP3RGEiCICzVNVkxp9YWIMzRJCmZQJ2AXMwWUYpGTRnCBekXNAoKJBqMHXrPA XzGDKrRS2ZQrAcNKIfGTZbLMMlEJPpAKQhuv7FCWLa KPMcHpH2WGKkKRDcBBVyLQsnLSQfWLKoGIA1HZYlLCEdIH2QTaKaJAGqNEF5OGXdXWZiHQPnsn2ZQLHo PNHpPjddDdRtIPVaORRrZXeaWRLlUGD9WKc3FFNrZVSpJL7CQqJeSNRfXSY4WQBcDECkVSLoob0IZCTk BLPaTdzsHVCfHPZyRYNsSEenUDGgSQE0RKVaSLZvNX ZzAG2JOvNtSGVhXZmdGWsjJNQnSBZdtd3MTUTyNALmFFHwIETqXUPpEJGaWXqyVERhXCB8XpN7LXMaIV DcMD1BSlOzFWNnWGsqHJgcNTRlNGSavj0QYMPpEFBgTNtbKmSwTBDeHQIkBAvzUDMsBXSmZeTrURQeZP TjDC7GIwJaUULgPcAvUrXoLRPlVGApxt3BMJDvMJPj ALX5LRXrYEWvQKUrQPc8ueNfxFUlIEy0WW4FX6OvijSjVkHKBy7Tg223PCI9NVCcVn3MH0lqVx5oMYIt OCWMEo8DOPq4IgLsCKymKcvnLTC4OigsEEssLhnfUeVyMLPgF0BbYFZ+THwlSPKeQFUtREI9DvnhUzDj PSJxEKIyDbDhDqV0M0S3Qe7uJHYLWo0+FSzmzTQlhAtiSLEZJlKrZoEuXHrcBFNFUm4Q ID Date Data Source [id number] 03/18/2021 11:37:59 AM EDT [facility] Name Value Range Interpretation Code Description Data Yany rce(s) Supporting Document(s) Nursing Note [facility] DGMCAd3jVsLMLuNu89/NGDsqDOLiv9IeLAiiWVz4PXawKADfQ5MlIBP0cK2gJMI9UMyPYcOoGwZfUXX7 lbm [file] N7R5TiVTOpY7OrBTqtOGY+MP7eZKa+Jm2Lp8TjtgP7erMbAUjbLEh8Ii7NDIVKV8EWBh== ID Date Data Source [id number] 03/18/2021 11:16:14 AM EDT [facility] Name Value Range Interpretation Code Description Data Yany rce(s) Supporting Document(s) Procedures [facility] UGQHId1uGnXMGqUa54/QFAyvIXWlm1WjHMkeKFm9EMamGKKqA2LgLEF9lU7nVTH4PInZXgJfLfVnZTR5 lbm [file] Rg0K ID Date Data Source [id number] 03/18/2021 11:13:52 AM EDT [facility] Name Value Range Interpretation Code Description Data Yany rce(s) Supporting Document(s) Anesthesia Postprocedure Evaluation [facility] AUAXNx2zQyCOSkOl43/QGDbvLYYbe9LwIYxoNLn2IFboPOXmM7XlUZQ2wW6jZKS2YMcPOoYxTfPnWYU0 lbm HlIbaGVbSpMUKrAcuVVkDuSGgaOovulNOkEW3OwHU1OMSoX16fQFXvGZIxV0XlMIB5HtV+Gd9JKFMfmV LySR9SMbjU2Dsyr3d2TA1edH/YBZYWwLGxUl3FZYAg1mQEBI/dFrabB0pwQiful5UrVn4P+4mjSOpyWI 1yKhmLwXWa1FYG8oq5Di2rgDtFYm/BdkDAW4N/bX/K hCJnFB87E+efXiEx9i61VpPHNYir2RE0BzKiDqsJA9x280dgMDrCZcuPDiHiRDabspdg3J37jrnlBuvi cnrpMtFIXYn4f3nsD20vm3fiLTIq0uGSVzxiHN5GV2ZAH6frsbyjtpPOGp4EE1RTT54itUsbxIk7zw3T wpBcWCqDgwgMvraDSWLJEsIERVrCuZUhpRpkNIaMPP [file] kaylee/g+yDD9sqBn0qQ4XOrnEBEHykd/B8v0f6W0aRIf pk8XQ9mIemb+jUipvfo5pEJJheTwVvol4CVUOUaQUMNN/rNvht0etQir03ZeeMaIN73EA8ND5JvxGy+l SC6lgZg1FYcbEy7Erj4dWwu8l3rQ/YfK0new2dwI4T4dGm5NMo9cCQ0R89cHR/BTirt1RsjIE+NEi8aG jRFrg2HPEZEq1qb1IULycxw/2fzCfUmkFTT72moQHJ uosyauGB85XlOwemyuGldKPw4j4Kr79fMU1thCNw+/3ttR9Mkv1TcX6HKwU2pOu6vBOJUdtn6d2zJgh4 aSO6oVYudle48FWtX6RnhCz9Dx9gkW61dUU8eq9iw8ZifeMryV5cbVNyLfROIRI/Thb2fBDKiR1TV0xR e574mDX3hYNF8QudeDHzA5fAlratZnWy0pUTMB5bN9 gUmlItXjGtjNG03R6pCLvNk/7lT2rElE5nTsu4ztLSfJPww+QWjGPWw6/VFYtzy7axNeP+7Wn27LJ73g WAGxPqM61h6sMahrhuJqE6JoSHL8EpBvCneFKUdoGfrjgAAdebTehxbUEA4zc83X4ce38yV5G5LwIZU9 Ppt7kLP+y78FGu4uTvTtO2LdrncMyxleUArQ0jcUBX vnpEznFiyG1zGmM9pwfQ0V10Q51NN9nt1p2yNP5cm5zb1GNIWfJ8F9BV5pFlEMAQia3f13BlC3BP0jOe 3ljoO2iHbz+3pZu258NfCyIN/SHwxFM0+LcfRwsZi8retWw8kOFSWj8W2qBQgtKN42uxSqIdEKj01hjm kmJNWxWmgP4TMW41Mg/jose daniel/fMzFAByUP5sbanPlCXo [file] MwBhKETcYTJrRANpHDZaTBS0WtF+PK4xDRt+Fl7Kp8AhpeQ7mjTzDPgtSeCbFg7SKNQLS5QILf== ID Date Data Source [id number] 03/20/2021 12:34:00 PM EDT [facility] [address] [place] [address] CNY PATHOLOGY CLIA# [id number] Surgical Pathology ReportPATIENT: SHAHEEN DAY CASE NUMBER:[id number] #: [id number] Date Collected:03/18/2021ccount #: [id number] Date Received:03/18/2021OB: 1950 Age: 70 y.o. Date [...] one cassette. XIMENA/janet Electronically SignedBy: Wiliam Gale,MDCPT: [id number], [id number] PathologistI ATTEST THAT THE ABOVE DIAGNOSIS IS BASED UPON MY PERSONAL MICROSCOPIC EXAMINATION OF THE SLIDES (AND/OR OTHER MATERIAL), AND THAT I HAVE REVIEWED AND APPROVED THIS REPORT.PERFORMED AT: [facility] [address] [place], [place] [address]THE TECHNICAL COMPONENT WAS PERFORMED AT [facility], [address] [place] [address].[employer]: BETTY OWENS M.D. CLIA# [id number].SHAHEEN DAY Page 1 of 1 Name Value Range Interpretation Code Description Data Yany rce(s) Supporting Document(s) ID Date Data Source [id number] 03/18/2021 10:56:55 AM EDT [facility] Name Value Range Interpretation Code Description Data Yany rce(s) Supporting Document(s) Anesthesia Preprocedure Evaluation [facility] KYBYRs2jPfFLPnHo47/JEVzfQSWcq0QsKWtzSVe5GQqmFNFqZ8FaSQH7cP4fXDK8LFdPAjBjFlWbJWP9 lbm [file] JGs3KQd2R1Y6OIV3Es6xNIHYHt6+HXgsxNTrmQcqQAYBWjE6JCv6RSjiUVNUYb1V ID Date Data Source [id number] 03/18/2021 10:36:20 AM EDT [facility] Name Value Range Interpretation Code Description Data Yany rce(s) Supporting Document(s) Care Plan [facility] KHLSLc3oNrEHVcQv36/VILglAUFye6AzTCwkIJb9XVwdBGViJ2HbKNU1rK7pRCS2UXrJFoKrClVuUOO8 lbm [file] ZrfBVQZr+vsH48/Fut6uRt9rhRJcYpjJ/zI8/p [file] ARASH/OMvQrY3AnE/9QDE7k/1BBtUJ+iYdpwyIN+ikIM7I1ZGOQLVHajLVmFUxeyn5qdnndkKW5H+6hS9u kiP0yrb1DF6icwQxkCUASzp9GvtA/8NtaPfQZCi9FI MmmCfg9u5vUE/mQdJdJ+RqOe1/O6NMNpyHOK2+/AHajW3EHaMeSQ9oR8ZSBghQcLHg/AKEOj21Ltrgvk d+95OCD0NIOXWmfEJYN1UU9DkInSTy+gKtxflbCFKmR/cF/JjVN8q8zRvidDuiTzQ+S8aH8ndI4SSM64 stEZnW75nypWFwrwRYgYnyCdxCZVTBER+huvNEn6WJ Zqkl7j7lF2xl5raTHW8CiqKZ87eiTOarhL7TRtAE6qFgLo0FlxKU+4hDIOfUD2X6Rwb1gAuCjRnrpIC+ tR1t9GwI9aj5HBmvFyNgBzK8+JaiQPLD/wxC392QQRI6gtv1M+oZ1XY2RwrhhIxzIY6lPrrpIThy/E+M LHwkJGPH4WXPdloAmWClqpwVpYKnfZhZRJogLDLezo IA8ksUGrl7QzE2DZe48d/ynv39xxT8zd70Ijw4f42y60u70gYEzOIzLx3CpXBUXlfJWSbAvDsaYcxz2a 2iZaje7nwQiyNOnC/gGOJkhgEHwOb3NkemTg3BiS+u7TK2TOahhO4ZuA9yu/PpFufbNy2SiNkldympO+ i+hgDNpJr1XNO089uiV+2AO3f0746CkV3E3Kl7 [file] DQo+To7Ow4KgjxP1buIgVBe4YZLzVY1TUVLPN3FIGs== ID Date Data Source [id number] 03/18/2021 08:51:05 AM EDT [facility] Name Value Range Interpretation Code Description Data Yany rce(s) Supporting Document(s) Progress Notes [facility] PAIBFo5iGaWKXuPp40/AUKanVZEcf6PoQOxgETl0TUjqOHIwH7MfNYF4iG6yVKS6HKtEKcPmNjPxELZ9 lbm [file] MTJkWLN4C3MwWmwvJax9BBBuMJK8MhWqBA3QVg8IPkS0LAF3kQDnNn5MPkWzWcXNQqHbUX1ARCq= ID Date Data Source [id number] 03/18/2021 07:09:00 AM EDT [facility] Name Value Range Interpretation Code Description Data Yany rce(s) Supporting Document(s) Neutrophils 69 % 40-74 Normal (applies to non-numeric resu lts) [facility] Band Neutrophils 0 % 0-10 Normal (applies to non-numeric results) [facility] Lymphocytes 26 % 19-48 Normal (applies to non-numeric resu lts) [facility] Atypical Lymphocytes 1 % 0-3 Normal (applies to non-num lonny results) [facility] Monocytes 0 % 3-9 Below low normal [facility] Eosinophils 4 % 0-7 Normal (applies to non-numeric resu lts) [facility] Basophils 0 % 0-2 Normal (applies to non-numeric resul ts) [facility] Abs. Neutrophils 15.17 x1000/ul 1.92-8.31 Above high normal [facility] Abs. Lymphocytes 5.94 x1000/ul 1.20-3.70 Above high normal [facility] Abs. Monocytes 0.00 x1000/ul 0.14-0.97 Below low normal [facility] Abs. Eosinophils 0.88 x1000/ul 0.00-0.76 Above high normal [facility] Abs. Basophils 0.00 x1000/ul 0.00-0.22 Normal (applies to non-nu meric results) [facility] RBC Morphology \\Normal based on slide scan [facility] Smudge Cells \\Present [facility] Platelet Estimate Automated platelet count confirmed by slide scan [facility] The above 15 analytes were performed by [facility] [id number], ,[place] [address] ID Date Data Source [id number] 03/18/2021 07:08:00 AM EDT [facility] Name Value Range Interpretation Code Description Data Yany rce(s) Supporting Document(s) WBC 21.99 x1000/ul 4.80-10.00 Above high normal [facility] RBC 3.97 x1Mil/ul 4.70-6.10 Below low normal [facility] Hemoglobin 12.8 g/dl 14.0-18.[address] [facility] [place] Hematocrit 38.7 % 42.0-52.[address] [facility] MCV 97.5 fL 80.0-94.[address] [facility] MCH 32.2 pg 27.0-31.[address] [facility] MCHC 33.1 g/dl 32.2-37.0 Normal (applies to non-numeric resul ts) [facility] RDW 13.3 % 11.5-14.5 Normal (applies to non-numeric resul ts) [facility] Platelet Count 143 x1000/ul 130-400 Normal (applies to non-numeric results) [facility] MPV 10.4 fL 9.4-12.4 Normal (applies to non-numeric resul ts) [facility] Nucleated RBCs 0.00 % 0.00-0.20 Normal (applies to non-numeric r esults) [facility] Abs. Nucleated RBCs 0.00 x1000/ul 0.00-0.02 Normal (appl ies to non-numeric results) [facility] The above 12 analytes were performed by [facility] [id number], ,[place] [address] ID Date Data Source [id number] 03/18/2021 05:50:00 AM EDT [facility] Name Value Range Interpretation Code Description Data Yany rce(s) Supporting Document(s) Blood Urea Nitrogen 12 mg/dl 7-18 Normal (applies to non-nume donato results) [facility] Creatinine 0.77 mg/dl 0.67-1.17 Normal (applies to non-numeric resul ts) [facility] N-Acetylcysteine (NAC) and Metamizole barnes ve the potential to falselydepress Creatinine results. Baseline values before medication adminstration are recommended. Patients undergoing treatment with phenindione will have falselydepressed results. Patients on phenindione therapy should be tested with an alternativeCREA method.Toxic levels of acetaminophen may lead to falsely depressed results forpatient samples. Glomerular Filtration Rate >90.00 mL/min/1.73m2 [facility] GFR Reference Ranges:Normal Function or Mild [...] of Health and the National KidneyFoundation. The [place] method used in calculating this result is traceable to IDVT standards. Glucose 84 mg/dl 70-110 Normal (applies to non-numeric resul ts) [facility] Sulfasalazine has the potential to false ly depress Glucose results. Sulfapyridine has the potential to falsely elevate Glucose results. Baseline values before medication administration are recommended. Calcium 8.4 mg/dl 8.5-10.1 Below low normal [facility] Sodium 138 mEq/L 136-145 Normal (applies to non-numeric resul ts) [facility] Potassium 4.1 mEq/L 3.5-5.1 Normal (applies to non-numeric resul ts) [facility] Chloride 110.0 mEq/L 98.0-107.0 Above high normal [facility] Anion Gap 7.3 [facility] Carbon Dioxide 24.8 mMol/L 21.0-32.0 Normal (applies to non-numeric results) [facility] The above 10 analytes were performed by [facility] [id number], ,[place] [id number] ID Date Data Source [id number] 03/18/2021 05:45:00 AM EDT [facility] Name Value Range Interpretation Code Description Data Yany rce(s) Supporting Document(s) PT, No Coag Tx/Coag Tx Unk 14.7 Seconds 10.2-12.9 Above high normal [facility] Attention: Effeciive 11/16/2019 The nor mal [...] Tx Unk) 1.3 0.9-1.1 Above high normal [facility] Suggested therapeutic INR ranges for ora l anticoagulant therapy: Indication:INRPrevention and treatment of DVT and PE2.0 - 3.0Prevention of systemic embolism with atrial fib., acute NV and 2.0 -3.0 tissue prosthetic heart valves.Prevention of systemic embolism in patients with mechanical heart2.5 -3.5 valves.NOTE: The INR is only valid for patients on stable oral anticoagulanttherapy. The above 2 analytes were performed by [facility] [id number], ,[place] [address] ID Date Data Source [id number] [facility] Interpretation Code Description Data Yany rce(s) Supporting Document(s) Care Plan [facility] TFHKVm8iBnJKBlOy06/YXEioCERgb7XkLBuoPDm5OWnmIARtD4PxBRQ5sM5rAJI9XDvDLfTaFdMmNWO5 lbm [file] bKa5hfdRr2mSTGSr6C6nKHbzRG98ebYcRhDXd64tvcvjIWIqLefV7ABI59Hp/jose daniel/hEqMGQkBX8wrliU [file] ICAgICAgICAgICAgICAgICAgICAgICAgICAgICAgIC EwEFKoIFXbPRVgSCWrXOBhJYVyJIZzWDOlHCLvJEViTPSwDSPsTDBmECSqSLRgAITaPXNiMX7OAITdKS AgICAgICAgICAgICAgICAgICAgICAgICAgICAgICAgICAgICAgICAgICAgICAgICAgICAgICAgICAgIC AgICAgICAgICAgICAgICAgICAgICAgICAgICAgICAg ILOfBM5GMQCyDKBnFIQrBWSzGDEbAVWcFPRqFAEeSPBwHRCfIIQxSGPmLDFcPDJsJLRcGOMnOEMyUZRx KXPaIAQvFNKhNMVcWCRcBJTmSARbUTAjTLFrXDQbYDBeBOMiOMOkODPvZFBnIP3XJYYiJYTeORRwLUEo ICAgICAgICAgICAgICAgICAgICAgICAgICAgICAgIC FhWBDsFNAySOSbAGDtUIByPWAgRNNqTUYxNWDsVBJpADLmJYVfIISvMAMzWHGcBILiHDWyGTTwIN3OLW AgICAgICAgICAgICAgICAgICAgICAgICAgICAgICAgICAgICAgICAgICAgICAgICAgICAgICAgICAgIC AgICAgICAgICAgICAgICAgICAgICAgICAgICAgICAg DNAfHEIhNR1SEJJbZMZzCUThYCLtUUIaCXHzGOPlITEpJHSiUXFfCJWvFENbMZSjQEVlJGNqYCZaHZGi JUTdHCGpBFHsQSNsYBVkXSAwNCEvAKQhJOHoYDMyMUXqHOLuTKQpGRVoUTOiYTHmIL9XFZQrZGAvZHWd ICAgICAgICAgICAgICAgICAgICAgICAgICAgICAgIC AgICAgICAgICAgICAgICAgICAgICAgICAgICAgICAgICAgICAgICAgICAgICAgICAgICAgICAgICAgIA 0KICAgICAgICAgICAgICAgICAgICAgICAgICAgICAgICAgICAgICAgICAgICAgICAgICAgICAgICAgIC AgICAgICAgICAgICAgICAgICAgICAgICAgICAgICAg BIHkDRFwBESyPY2IEWBbTNIlWPCwKCClOZQnWIIzOBHgLLUnTBLaWDMcXFLcGYScCLGrVPCcHBRsDJRf BNBrHKZyFAChVWUlOVWtNNMtYMBfVXOgYQCbASPyTGLsWAJgIMIaLPYwFRTeTURxGIGkRF3AST29aKRc y1A2IKGpYP3jino/Bq2REZybouOfeUIpUP3IDtLsBJ 8fmm7XAdUnPS1nee7ORUjVMpSjL3B3qMKaYPJrDVCTTnSgL40uQKfnXt41OTelYAEcMcQyCGs0Aj9QAj QvY0ypRMYzUvL9TIIuJaVmQSqrHC7Ul4MeaSYiTMw+Fo5EWV8gq3CfMVkeDIViVX1agl1AHJzIDbKsZ2 XfmqL7KDM4RHWjAj8HSILsJFTndLAlMgSxKUCXEaLt H4AgwQ43XAFMKp8+VQdetlGiAxlRXsQ7TGInq3VtCFe4IY4XFIUlDLa7lAAyD3VuIFXWoXTvFFC7EXfi pxRxGHD0ooZibqwwBs2uURCzFV9tUa8pTYUbMKO7NbI4BGVVZO2LYIVvBEUthMLySPVeZLSLEO4IEKpd QRT9EuywinEuxRHcXXbuMW4LYYGtyeGnWiDiUMYCWV o+Vo8MOP0lc4AhPFlaNmIyKH7tdf2GFSzFMcHlS6C2vBTbO1F3UQhfYb1LGNEmDNWcViMgPVXCEYejUA 5XIS9jgmD9TG0GpDWxRMJpWWXutBGzWGy4Y99wpOMpYLtwUK6NCXZ+Frantz+Ee4PVBFcLBPtEQKlOjPqAI DVEgPsJ1NeD1FIa5UbF1IwIX14aNsjlyQvPXzcFK8U GI0bVNDkTQGFBN4KtPRmzW7lqlVbLZWsSWBRBfRrL40ujQCqHVVnOYX1FUNmZh6NDGSxL4GnofRpwXwd kaKyYRCoTBWVDK8LJHchmyCppCNifUjuGR84lAmzJR7FTv5CYjMgDW8jem2PnNLkSx6UWGHxEQ3OYQOo EHRlUJMqIKQ7HXSoBvClJCmfPJZhUDPzDHF5HVXxKO TuTK9OFmBbOGWpBsM7HrwjLCZmLTQudg3HIGPkQIKcLwH9WPWhZKCyFVPeSFalZKEmESUuNVF2PHGjFH UvTB9PHeZbQTNhLKMlLsTfFSTzPZJfjm4IDNYuQLBcJoVdNOJvHQTeNESjYFtsQHQvRBJpLQi4PRXvJS JbWY2NDzMaOENgSNYuAHbjNIIrJQAvzm5GOBGbSOFo IiR3QkPpGQZlJKMxPTfaFOXoJND2RWKkDYMhGPBiEX2EWcEnGGIeMUS5CmkdEMYhMEPewy3ONYQoRCIl DVtyAMQfBGKnNMZcAZsyODHtMCB6NsW0XLOcBIVnZW6QMjRbKWQdALz5SKSqUMKwBXLsme3JYATdQPIn Rcs2BPRcNUUcZBPaAPahMDLwIFG3KLQ6ZXUhYRGsXF 3IZgApDNHeJDslSCGuKMBwGVZzvd7KINBuKWQwOEVdRaUvYAQpASYtPLujEAQsIAG2NjXkQMUkBBIjMQ 9NVaLrDJNbFMq5FXXqJGZaFMLodq1ZUVBkYSZoKNX4HYPhUMSyPJMuQGrwUXOhLGOuXtAdFGMzNQBiCY 7TSaZuYKQrIjX4FIRbSHPbPLWfni7BAGYmKBXnZHTg TCGnEPUiWZRdMPkeWYUiAYVaJjz0GOOoKQLjTD6CLjLmEAMoCjG3PXytVBTmDWYdrg4LZTAwNGMqFna9 MSZuKQWnNYWbDLi3wpPemIAeZTy3YV0EP7PgvxSlKkzKHc9Cn368GWH1RJTwCo6KQ3xpRk4bNCHaZQZS Nu8SFCv0PKClAUMmTHAnK0LwUpKpMLU1AiHhYOM0Qb w8NobiTdi+GMg5ROGqEMQkAHJyNLD5B8F5Zjw7GhOwVdtbKXppTWXsZJ8lIBMMQl0+DQpzdGFydHhyZW BHBrDqFJBcFTsyGQEVBt1O ID Date Data Source [id number] 03/18/2021 04:54:14 AM EDT [facility] Name Value Range Interpretation Code Description Data Yany rce(s) Supporting Document(s) Nursing Note [facility] PAJVNp8oOoTYPwOj61/XSMdfXXElz5WfRPksOXb0UQbdYPXkQ4CmBNR9fH0mZBW2RIdGTlEnLmNnINY3 lbm [file] AgICAgICAgICAgICAgICAgICAgICAgICAgICAgICAgICAgICAgICAgICAgICAgICAgICAgICAgICAgIC IjXEFpYEGjNGZsRWBzNZ1CMCUgALNpPOYmFATwXICn ICAgICAgICAgICAgICAgICAgICAgICAgICAgICAgICAgICAgICAgICAgICAgICAgICAgICAgICAgICAg XGPbLLPvMRWjPNWhBIQqOGMfNKGfDUCgDE3TTWLtDPKnOYAaMQMzIBRuRYYvCTYpGIUsWWTyLWAxHTLv ICAgICAgICAgICAgICAgICAgICAgICAgICAgICAgIC NfHUAjCVZhHDPrKKBkDQIlIHGnHBScZWOaEPKuTSDmBJGkKU8TNDMlJPDaQFQlNBMpFXJhKNZwLKTmEH AgICAgICAgICAgICAgICAgICAgICAgICAgICAgICAgICAgICAgICAgICAgICAgICAgICAgICAgICAgIC TpUHJrBJYaMLWeABZpRVCiCG0TPWQpKXNqFEKbEUWh ICAgICAgICAgICAgICAgICAgICAgICAgICAgICAgICAgICAgICAgICAgICAgICAgICAgICAgICAgICAg BLHrOCNnJLQkLUEwPMWrOFXdZOBhVMItIQZuXX3TAXCeZXJvYPSaKPYeJOGwUVXcYBSeKCMdUCKyBGQl ICAgICAgICAgICAgICAgICAgICAgICAgICAgICAgIC NhWELrBHNbMTEjFDNjSHPcFWNjIMHyBFVjEPCjSXVyRMXsBDDsMT8MQTTfUETbJRJpYKDbVDDqFFPvSU AgICAgICAgICAgICAgICAgICAgICAgICAgICAgICAgICAgICAgICAgICAgICAgICAgICAgICAgICAgIC XxICWbJLCzGEJoSZXeDGEzGVUfRO3VRHXbSTJsVPTo ICAgICAgICAgICAgICAgICAgICAgICAgICAgICAgICAgICAgICAgICAgICAgICAgICAgICAgICAgICAg VDCrOKToRGUnRXXqVDNfOXPzQBUrRQMwVTUcRKGgGH2IGBYhPJWkLRUiAEQxBORwHFErVVTtTPArKUCk ICAgICAgICAgICAgICAgICAgICAgICAgICAgICAgIC GvSLFpYNFvVSRpMXLzYSCoBUYmMPNaSOZpVEEcARAsZKNgTUSzEJEdVP4DPUMbSKAyYEKhMIXuFYIrWB AgICAgICAgICAgICAgICAgICAgICAgICAgICAgICAgICAgICAgICAgICAgICAgICAgICAgICAgICAgIC VhZEPcYYFhBILlBBBeYZEgFTPbYQVlCH4HVO39fQYw c8P6BXHdQD2oozi/Pz5HOClwidTftHUaXK6CIhIcHF3rvo1UBrFcHJ2jai1SAMqAGnNdZ4F0jVWlZDGq PYJGJeSdR97fEGbjPi78SVmxURNoYlMtIZc1Nq9FTiNqH3reDYFsRbX6OIAhRhWsQOjiTV3Ro5IddZHy DQo+Pc3QPL9dh6VpTPodUiRkCM7otm1KOZiRNrFoI5 DbziH4VPCuGTMuGr0GRHUuSBFnrHNnNgRcUNUAOhGdV1GfeB74MDXFHa6+DQplbmRvYmoNCjIzIDAgb2 RwMTp8CC4TUQHtXTd3jPJvCnXbj0xrNkQJc7DuGPH9MBgbdyFmKKI4saCwiwbkZq9oXLCfUS3gOs3fEN HtGLW7TlDpTNWYTY5GXBJnXVJgrDBfHFAlROADHH3B KJzgQSX3BzmnvhRmaWTkVMcsZX0GNGGtraFtRwCdPWSXGBl+Iu2PMU2ca2TrBMciRJDbZP4hld8WAQkT XdEnV9B1zHWsA7N9KVkoRm5SWHOiOWOjLdSfBCGIUXzaWS3WNK0oibO3WY2CaFOaPZRpXJRmeJYkNZu9 X36leITpWIhmDI1ZSGG+Frantz+Bs6PHJRtLNHyVNNhOr WbDANUZxOrG7OrT4CQg3XfS4VzED72zWnuamHnPThwRN5WOL0qHVFdFQPLLU3LyRXdhG8gxcZaFrYbMQ WQNiQnX68wcCZyASBjVWBePMSvPi2UUUTmU3HcbcQvnCukiuVcUSSkDFVMNC5BONicvxWhhRPxaCbyLY 80wRwsJY9ZOu1GIbIdXY4oyz5IqBFvGr1SIAIaFS0F FGRvMMNbBPXlBXA7ENXvCeHgECofDAVaVQPwBUG5NJLeLSZjIS2XQfOoPUDaTAl0WUGjOPGuADMqde3D FQPuSDBzCHB0BSPhVBVxXKFeKWziHJKxMJZrRGH8MWMmFEQuON3CGzNtMUUkWEG3AbxjLAPmQVIplx0K FPJxHYTeYQI7AbCiAMXjHITrOZldGCUwZLWfLtNhIQ CiIGPeYF8XXeHgXZRoZHK6APJbCEVlDSXwab4WOXGiJCOxSfe3UvDsGHDmXBDoONafQEAzAAJgXBT3MR JyUHEvQC4DRzAzKHStMDPxGOIsLYMuGOPgff5VQFNvCAZqCIWeTDZwUXQzUBRyMXuqROStJPO3SotlIJ VbBVAwRL1FLwXrYSQiXUG2EDrkKLQcTWXqlh7JFTIg XHFpBdY6QFBbVBOgQBMbCSzfJRZgRFP5HCE1IDJbJVEeHK4AJgZlLSLjSWz6QCHfOZAjLOZmak8JGWHi WTNySPRpTsZpYDPfFFKoXDznWNMnXNO1AlXjHDVnDFHcMN6ESbElEFVnYHb3SRFiYUHaWJZncl1PSBYo WEAxNTFjZOYxBWHvDUCgGCcqPPTaTPQyNtV6HTJvZY TaLP6WEbWsOGPfQcG5NYwrAJDfSSKgbw4VHLJuEQNpUCd5JKPlNLRbGMCdIUn9trIuzSCjREd6LE5PS9 JshdOpXoEQCq7Uh824JWY8JZQxUg4AI2ziCb4wCJSsHCIUFn4DKFf3AYpfYBB8FVVzLlEjVgf1ORWdEU Z0MTQcXpD3GTv3DTI+EUw0L3MxTQS4PGO6F7AeTje9 PrRwGcW4JLVrUgj1Bsy5Kg3uRJHFHj1+VJnvuTQkyHteABJKCiNgYOc7AYqiEADGPn5G ID Date Data Source [id number] 03/17/2021 06:53:24 PM EDT [facility] Name Value Range Interpretation Code Description Data Yany rce(s) Supporting Document(s) Consults [facility] QMIYHi3mFqHEVoSh69/SIGosHUUgj3YtTHdqAZr3SGfoQUOeV9QdFYW2kU7hDLS6AGxAHrPyDvOvUDV5 lbm [file] BEVwRVCaWNhhY0XbXSQ+SS1oLBt+Qd5Hx7OllyK3deDyAApoIZPmOG3ZNGNIN1SKOj== ID Date Data Source [id number] 03/17/2021 05:16:26 PM EDT [facility] Name Value Range Interpretation Code Description Data Yany rce(s) Supporting Document(s) Progress Notes [facility] CZWLUw2vIaQKGuDg45/ZFXpfIHDmg8FbWWfnEVg7XRvfINTiB9KuWRA9iI4tTNY4BZePBjMuXrJfGXU2 [facility] GeJccJIwXvOGAgHbjZCtYxWMkpWlybaKNtHB2JiGT4EHGsZ58vRKShIAStA6CwVCFyDRc+Mq3FUIXspY KhGZ6NIojT9T4Oj+Q8Hq2k0s9JYROhjPlIj42oC+c3Jebh19igbhMxpuRBhdLVHKLqi5+QD2zuhh+pSV K5IPwPZLqVxKmc4GoQURsias/RFSy91iei9+HPKLHq ZqH++Q+0FvbNl5MsI5ed8uCQaR3sI1o/IzX8xTHiKAOdZ4futiAonPenBaSQmcTxKsKXpe9rpp4jm1S4 7R4rslB19sllvW0NDU071aBzi74azE2owBKSvruilFF9csf2VImSL9KQbjrbObJGCfdw1woQV2fuI5Xz 01dgpZIPGDyEsLpfFR4+45l8L6eijXctVvgmYslbfr ppG/uazoHBnVJIc/QemdYJ675hRKU7I1hjhD6joCBE7WmNqAF0pHhxIuVoS40Uj2BxzBKvhk9Rd9MhVu eccFdblO8Awru88nprnk94F2gPmEYFkdhJdA63RLvQPehpIzUwKuvUVTgKFaDzBDg9pwzX1EKUau5lGB hpRxwc5Zo2W+/Wk8n9N+ricti1+WEcb3G/pzzOhDIj iMRvcaRvYSoll6ymK2uDimMZbAuykDw2WWsd2ln0FK8evoQ8lm9iU3F9iRlRintReR6Q8g4B1YShJG1X rmps1hyuZBoW+Ldu7bNzROgrMZMFcIK+/IakDwxSShU2KvzetFXeKqkUuS7JSFGhjl6XSwy46b+o7mpV 7V7NT2cYs9GxA9E9K9b4nNaZSemUgecI6SeZw4+N/X 0+wusrv8iFd4fars10b2IMdf3YWMA9FWaBjEeK4G1TZ7C4B/ivKf+pPLmCMCzEOem52a/pNjZv99+Makenzie [file] ID Date Data Source [id number] 03/17/2021 01:35:58 PM EDT [facility] Name Value Range Interpretation Code Description Data Yany rce(s) Supporting Document(s) Consults [facility] RQFCEu8aYxTSLzQe71/NSNpiNELej9SrXVyuCTg9LYruAHQsZ8RjTVJ9gV4sKKR6YFlDNnTnQsGlXLG2 lbm [file] s1Ybt9Fn86J9xb99CFzl10AyDOI40Hzi5ln+J94j5a dT6aFMlmnvFg54dvfXSSjTQlGps43bn6LIkRmiSKT8ImjGwvgp29OK2aYX9tZpiC35K0vGw3PjXrso+Z e7glP0cEOVym/[employer]/w0vj0mph7dV1w5tC/L9Rmu/muenXH+ASQVG0QG/lYo+0I/cebw2kbB5IqvRFzXI [file] DQogICAgICAgICAgICAgICAgICAgICAgICAgICAgIC AgICAgICAgICAgICAgICAgICAgICAgICAgICAgICAgICAgICAgICAgICAgICAgICAgICAgICAgICAgIC AgICAgICAgICAgDQogICAgICAgICAgICAgICAgICAgICAgICAgICAgICAgICAgICAgICAgICAgICAgIC AgICAgICAgICAgICAgICAgICAgICAgICAgICAgICAg ICAgICAgICAgICAgICAgICAgICAgDQogICAgICAgICAgICAgICAgICAgICAgICAgICAgICAgICAgICAg ICAgICAgICAgICAgICAgICAgICAgICAgICAgICAgICAgICAgICAgICAgICAgICAgICAgICAgICAgICAg ICAgDQogICAgICAgICAgICAgICAgICAgICAgICAgIC AgICAgICAgICAgICAgICAgICAgICAgICAgICAgICAgICAgICAgICAgICAgICAgICAgICAgICAgICAgIC AgICAgICAgICAgICAgDQogICAgICAgICAgICAgICAgICAgICAgICAgICAgICAgICAgICAgICAgICAgIC AgICAgICAgICAgICAgICAgICAgICAgICAgICAgICAg ICAgICAgICAgICAgICAgICAgICAgICAgDQogICAgICAgICAgICAgICAgICAgICAgICAgICAgICAgICAg ICAgICAgICAgICAgICAgICAgICAgICAgICAgICAgICAgICAgICAgICAgICAgICAgICAgICAgICAgICAg ICAgICAgDQogICAgICAgICAgICAgICAgICAgICAgIC AgICAgICAgICAgICAgICAgICAgICAgICAgICAgICAgICAgICAgICAgICAgICAgICAgICAgICAgICAgIC AgICAgICAgICAgICAgICAgDQogICAgICAgICAgICAgICAgICAgICAgICAgICAgICAgICAgICAgICAgIC AgICAgICAgICAgICAgICAgICAgICAgICAgICAgICAg ICAgICAgICAgICAgICAgICAgICAgICAgICAgDQogICAgICAgICAgICAgICAgICAgICAgICAgICAgICAg ICAgICAgICAgICAgICAgICAgICAgICAgICAgICAgICAgICAgICAgICAgICAgICAgICAgICAgICAgICAg ICAgICAgICAgDQogICAgICAgICAgICAgICAgICAgIC AgICAgICAgICAgICAgICAgICAgICAgICAgICAgICAgICAgICAgICAgICAgICAgICAgICAgICAgICAgIC HxIYIrQOJiIMYjSDTqHOTbQOFeRRi3Q7ehOTAtNBVpZQ0yNMm4Nj1+NDoETgQrNWC1gvYhuL5BBX1bx8 BcDDbaWMGof8CvSGh5DX3LXIAgKAhqYC0PRGofew8V HGFmYLKucXWDa3bpObHfFGW4SDIeHpsaKU5ZUZEqJ0ogoeVjPILbJMIERRybAEXAXEeiOCMKKNJwXPPc GqNyINguOH3Nw9CieVN7ZRe+Wh1CDJ7zl3UjRSeqEPBgDQ5kiz4ZVNnXIiZoR9YubbO5HCS3TWSjFt8T MTIfUZBksBMnXIMvOQGMWqWpA5QfbS60FWSEQr4+DQ ntzhObRxxFHeN7XLYvh0OiGUz3LN6QPMOzUVl5hJGeS54zp4AktIFnRxrmZOnaG8xaJERbjABsE1nuFS uhQGIaGDIcBD2zTr0pYMWwAUYqSrGeSFXHZP4HNZVmHFIxkTFjUDLyBDBEEF3WYXakBUU3WxyanfKkjJ VdAWtmLS5IBBAeitOpXuIwFRSSDNc+Tm6LMG8ys1Am ZZynWmCoLX4yzj1AHNiSPbTfD8R7fPGaY0N4ZIkhXq1HJAGsCKIuDjMsJQVJYEujKY9TYG1dabO4YW7I aIZiSBDfPXEzaYOcDYd1L91poPKoJItsHI6RGTQ+Frantz+Gr8XFLYnCKMbBOTwFiRxXTSFMqHvV3AnG7SJ w6LcG7TsIL55uDbgixKbNSdhUF9QGQ6dYJYkQZLRCX 9TxMMgbP7gnaHtFTQzJFLIEeOyH88geUVaZBPyQUSpUOUfIn5LEKJnU8PbwoPmoPtlkdTvYINjNNQKBS 8UTApjlsDvvQKezGczWU25vDjtKL9KCk5VOxPxOS8dfk8CuVHsTf4BCNXjAl8GNNHeORKnFKTvLKW8TN IuTlKrGOjkFIGwPBPxTSJ7HJKwIILxGB1NAaZxYYRa ITAvDVgeVTAoQWJcmk7XMNMdEGS3NTwmGyWxHXHnCGGcIRdhIALeXDUoVMJ9ELNbJIXbJJ4ICmNzYCOo ZLP8QpHsFPBxTKRvfk2WHOVsAXRtBzufEpEsWWFsLXAbMHwqRYKoDAS2UAWgDDIcCAFnLZ1QFcTwBBHh IIfsLcBiILBrCGEypt4HGPWaLVTaQXKwOtGfPCAxUH IuQCkjRWArJJC2IUNtXVOfHVQaDJ0DLhKxQPUbQXT7QSUwPWKvBDMscw4ARDAoVYUvFQplUPLbVMGqZC TpCMutVQShYYSsNbW3EDZaQTShDR8XLdNdGCMsAQI8OugbUPUtHCGeol3RNEKlDDNsMcW1AvMkOERjKO ZtPJdnWEHmFNR1CSI2JYWrQLLiKF8MYrSoEYQpZJEv BTDnTKUqAMBhmf5GDZQxGEPrHAB1TkNnYVQfLZSyCNbdPAMsJQW2OjC3VZIzAKTmCW2IFaVkSQVqOPH3 RtHyIJIsTUQwav1OBGDwZTLqXSj8DmOgWGBcTZFrLCnfSGShTDW8JxG9QHWxSTLlZD5LSqFgEEAfQXZ7 AsUdQEHoASIsns8SKOVyQALzPlDmSiYcTZIeKDTjPJ gfCVBwVTD9VBscFEPbRBNoVI9WXoYxWVQiLIauUPWzZVWlINPvpz8NXZRzCASoWHZ6WrJvMMSxPROzNJ anAENeLUAdHAV6BEVkIKEyHX6RSaYlTCMtMOA1MULaYMAzOKFfib5UXPCuFOL1LpTyJGXnTHJkWGUgTJ pbRQKaZWRfCIl4UMYrSWLlRO4OBeIvZJIvMALvDngs RMAbVLNnwr6OWRQdSVV2SfS3NgNbWMBnUEHoNIfvWGOjGSR9JJLqGWKiQVRbJD1IXfJnHSYqFQJpUJOr HAKkQFBsxr9XKZRdYCR5CCA0RFHrQVWdVOGfQTx7pnCqeSZjLVs1QM9FI4FiutMfAayYAe6Dr491IXC9 WEPuHf2ON6rtZq8iXVLrTTUZGt0BVXk8AUArFPRyTS ZmZIUcXEW5WGAySAEpXxDjNGvnNAJ1O6W+SPnsTcEbL2TbWGBcXTGjNgP0EtS4HlOoTNQuJfDxNrW0Lp 3xBCOFMe6+DYjkbBDwlRerCQRWZvR4UyciPFhrFWQMBf3X ID Date Data Source [id number] 03/17/2021 12:01:00 PM EDT [facility] Name Value Range Interpretation Code Description Data Yany rce(s) Supporting Document(s) PT,Patient (on Anticoag. Therapy) 18.1 Seconds [facility] Attention: Effeciive 11/16/2019 The nor mal range for PT (on Anticoagulant Therapy) has changed:Previous normal range: 10.1-11.3New normal range: NoneDiscrepant results may occur due to anticoagulant effects such ascoumadin, direct thrombin inhibitors; argatroban (Acova), bivalirudin(Angiomax) or dabigatran (Pradaxa) or direct factor Xa inhibitors;rivaroxaban (Xarelto), apixaban (Eliquis) and edoxaban (Savaysa). INR (on Anticoagulant Therapy) 1.6 2.0-3.5 Below low normal [facility] Suggested therapeutic INR ranges for ora l anticoagulant therapy: Indication:INRPrevention and treatment of DVT and PE2.0 - 3.0Prevention of systemic embolism with atrial fib., acute NV and 2.0 -3.0 tissue prosthetic heart valves.Prevention of systemic embolism in patients with mechanical heart2.5 -3.5 valves.NOTE: The INR is only valid for patients on stable oral anticoagulanttherapy. The above 2 analytes were performed by [facility] [id number], ,[place] [address] ID Date Data Source [id number] 03/17/2021 11:54:00 AM EDT [facility] Name Value Range Interpretation Code Description Data Yany rce(s) Supporting Document(s) Hematocrit 38.3 % 42.0-52.[address] [facility] [place] The above 1 analytes were performed by [facility] [id number], ,[place] [address] ID Date Data Source [id number] 03/17/2021 11:54:00 AM EDT [facility] Name Value Range Interpretation Code Description Data Yany rce(s) Supporting Document(s) Hemoglobin 12.6 g/dl 14.0-18.[address] [facility] [place] The above 1 analytes were performed by [facility] [id number], ,[place] [address] ID Date Data Source [id number] 03/17/2021 07:49:13 AM EDT [facility] Name Value Range Interpretation Code Description Data Yany rce(s) Supporting Document(s) Nursing Note [facility] QRUMBs0fPbYGIzAv67/KEIwuHLUdm8HgVFhqUEg1OFixYPGuD9KaIFS2kL4jUVT4SMgDZmIqJlNcVRC9 m [file] PM14Gq/jose daniel/yNvMAUcEY4fzvpSvESqv1cKeJYV2TziKqH9A2Bmz8aIGy6bnm4Amc9Oudxm1c54m3IfME [file] CyKeMM6POp4IXjZ4HTF3xJNfRh8AXaOeIGOVXzQdAN9CFSj= ID Date Data Source [id number] 03/17/2021 05:18:49 AM EDT [facility] Name Value Range Interpretation Code Description Data Yany rce(s) Supporting Document(s) H&P [facility] MAGTWy8iKnVJZiTu93/OHDowGIOyu2SaMEwfERh4EYttFBGsM9CmMLA2sT9cGQP8KEnXIiWkMxDxNCF6 lbm [file] vp ad sales west/NatDeUi+yEULoV+CFYrbsgjDXXRDUn4DH/hb2Im [file] José Miguel/F98g+/HFGvhUhgzMkN30NfUThYD0n/nVJDbtvz4/8Sy/q6FOWW2wer0r4UW0K6Fv1/m98k1lnXaQ [file] I+wKLw8bfP9n+tufting supervisor+TfUlwsWu5E6tx8ii3Jm/sZoZKMS/MmOYFkRFDQvcO1oe5DYbvjOAaPF616/sz5r [file] ZdeueHgl+G3gvx+wet inspector optical glass/VvjUmyO0JwR8H6b8D+uofN0xugNCpIu3pfcS7UV6FR4n0rMPNGCIAExjbSHqRX [file] VUqIMiS+Cz8pjz6V2LKucJAaNuD5VWhvNGnnNwNZivIbiOjB62n4WkfGLeaBoEj32ffZjoYgAXbF/Philosophy Specialist [file] +tUHUlu+CcsHr/KJdVBXLP/+irx8y4rXy+Pz0C [file] nJb7wIXb0TFgeph008qiVL09tJgrs5Mhvp+1y4IGbCR172yPrVrlGbdSsbviGBZC2KZfFb/Rwfan+tannery worker [file] /P6zSjZPGB+HI8bxxjz7lXn7lnYYPl0ASew6xfYsyzcZugnsXYnl+/6IvxpMSAAPfeXPXHR1cGaOB+Upper Sorbian [file] 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/MV2etDpYB0WNNeXKqwEzadXdlTrF8YXNGBVxO2X YTysjzjVRrb+AbvW+72CYV0kW+wL6JcUAsIVPaqbPSOj4ESpsQx2gs545JTyrw6O0oE01tuuzaAYX2mV PCmyDy1I00hDoqT0zKrRXLOQouIWcx41oQXvCi5OdOQVHdaqmeoVSLhmuk77bngY8NTNZkRKhSHyyViR okCVieCzcM3/BwbhqUtTIo1k3SDsbfIt4Gd0kXUuCs 42tfziIJOZH62rPK6FpwzkhnQPOwX6pKAAQ5/A1V97shDTJu082nZFY9jyEiVxyeIh7EkuFL1SSo7Rwp tABjGd7ZGJzSrbeF5o6doSbw8kALeVeO4J9XCwg7VhMzVfWj/NTWcEOgLQc+aBCA81EQCByHW8lFcGwR FbYuPn77OPArf/dMcvvvUYqoqhlDnunhP9emyheb6u [file] Batch Maker+iJ5gQHSNNgwmlBEKthQeLCEi3trCNb3nO3avza7 [file] h9hIf5gmzPHKd+4d0FVvNzBCzaUnZv7ptRKcNnXu+nUSzf/clinical fellow+zr9DJ2VIGHWhQmag0Tu97fTQZgFap 1dXDOnYRsGnoZnPAAuXR2vkjOseA1JxjLddTxNB3op VnE8TA1fSE6iTAJTpM/aE5QZCF6p4PpR8RvrY4896eQ4DjXu0PjPN8XFPmbnGzScqCwRaUTRGxB158rO SLDMcNbPqDZVBel2N77mV+MLTBXdAkaFLVG223JFeYpILYbL9ldwtShwCnbU8IbPCZNaZN8RWsREBkRr tQgsgP3ySLiotcJ3BU40McjT59YvEJCMAobI4fXI8a iG2KIUGfQ0V73LVFV0Lfv1q/gpkV3UWAgWpJKvwjDGLOt4XoUyCOzYEtSja0qxAhYti/D2Sx0uH+gfFG ipBAzhgEUSxJgMt5a8ir0sWFCLjUrMRPBwjjPwlm6QJibpNwiv9ZlCtbKjZoyH5BjwEKPXeLAucYx+8g QLpH4gP0g2Nib8OuUGioOGfwUyU8V1LIRPilJANCMs YLEdezOlTCAOZaqltaVHZvyR22XX8pJGXGfZnPqfXFLe5dWVH5cPGSNj/znLUBFw6bVCQ8OP3tJo0qzS FqjdI6+RzhvPqLTBJz0PzP0sKHSFPGoADyGgXBL3TVk/SBsLiRbRPlVVQIGVJDMMQ5rdIgwMXiV75Tkm GDD8kUpSg6EIJ+O7mg3wblic0URrNBQuJU95qkeP7w OxYAu72OiWVMQemxvNEOkOMkBjK08jELYzKEvtuP7hHq5xetHwIXeCpmQ3FiE3qDAyv405MhnPgjntiM jvYSiUDMXVmRxtZGQk66fiECsohol/7LgjV3qBYQvd9I3xz4m5O9brh2nkxfhOMu1GDSqByWLuRaoAp9 8F+WFNHvd9hvNxrSfwQgitZHZ3bOQ8jiyWESWPm0a7 Elza/jzsXO0aW7ByrB1ufjB2ybaOKMQACii488ynkzQiJaUH+Jw4n40SpnIYavFokVgtZPZYKcqONxfUj [file] ID Date Data Source [id number] 03/18/2021 03:18:00 PM EDT [facility] [id number] lymphocytosis (6,85 0/ul), neutrophilia with left shift andmacrocytic anemia. Recommend flow cytometry to rule out a low gradelymphoproliferative disorder. Rule out B12/folate deficiency. Correlation with clinical findings is recommended. Reviewed by Ananda Sena MD. on 03/18/2021The above 1 analytes were performed by [facility] [address],[facility] [facility]# [id number],[place] [address] Name Value Range Interpretation Code Description Data Yany rce(s) Supporting Document(s) ID Date Data Source [id number] 03/17/2021 07:28:00 AM EDT [facility] Name Value Range Interpretation Code Description Data Yany rce(s) Supporting Document(s) AST 34 IU/L 15-37 Normal (applies to non-numeric resul ts) [facility] Sulfasalazine and sulfapyridine have the potential to falsely depressAspartate Aminotransferase results. Baseline values before medication administration are recommended. ALT 27 IU/L 16-61 Normal (applies to non-numeric resul ts) [facility] Sulfasalazine and sulfapyridine have the potential to falsely depressAlanine Aminotransferase results. Baseline values before medication administration are recommended. Alkaline Phosphatase 142 mIU/ml 50-136 Above high normal [facility] Total Bilirubin 0.50 mg/dl 0.20-1.00 Normal (applies to non-numeric results) [facility] Blood Urea Nitrogen 13 mg/dl 7-18 Normal (applies to non-nume donato results) [facility] Creatinine 0.76 mg/dl 0.67-1.17 Normal (applies to non-numeric resul ts) [facility] N-Acetylcysteine (NAC) and Metamizole barnes ve the potential to falselydepress Creatinine results. Baseline values before medication adminstration are recommended. Patients undergoing treatment with phenindione will have falselydepressed results. Patients on phenindione therapy should be tested with an alternativeCREA method.Toxic levels of acetaminophen may lead to falsely depressed results forpatient samples. Glomerular Filtration Rate >90.00 mL/min/1.73m2 [facility] GFR Reference Ranges:Normal Function or Mild [...] of Health and the National KidneyFoundation. The [place] method used in calculating this result is traceable to IDMS standards. Glucose 91 mg/dl 70-110 Normal (applies to non-numeric resul ts) [facility] Sulfasalazine has the potential to false ly depress Glucose results. Sulfapyridine has the potential to falsely elevate Glucose results. Baseline values before medication administration are recommended. Calcium 8.3 mg/dl 8.5-10.1 Below low normal [facility] Total Protein 6.2 g/dl 6.4-8.2 Below low normal [facility] Albumin 2.8 g/dl 3.4-5.0 Below low normal [facility] Sodium 140 mEq/L 136-145 Normal (applies to non-numeric resul ts) [facility] Potassium 4.1 mEq/L 3.5-5.1 Normal (applies to non-numeric resul ts) [facility] Chloride 110.0 mEq/L 98.0-107.0 Above high normal [facility] Anion Gap 9.7 [facility] Carbon Dioxide 24.4 mMol/L 21.0-32.0 Normal (applies to non-numeric results) [facility] The above 16 analytes were performed by [facility] [id number], ,[place] [address] ID Date Data Source [id number] 03/17/2021 06:32:00 AM EDT [facility] Name Value Range Interpretation Code Description Data Yany rce(s) Supporting Document(s) Neutrophils 59 % 40-74 Normal (applies to non-numeric resu lts) [facility] Band Neutrophils 0 % 0-10 Normal (applies to non-numeric results) [facility] Lymphocytes 31 % 19-48 Normal (applies to non-numeric resu lts) [facility] Atypical Lymphocytes 1 % 0-3 Normal (applies to non-num lonny results) [facility] Monocytes 5 % 3-9 Normal (applies to non-numeric resul ts) [facility] Eosinophils 2 % 0-7 Normal (applies to non-numeric resu lts) [facility] Basophils 0 % 0-2 Normal (applies to non-numeric resul ts) [facility] Myelocytes 1 % 0-0 Above high normal [facility] Promyelocytes 1 % 0-[address] [facility] Abs. Neutrophils 12.64 x1000/ul 1.92-8.31 Above high normal [facility] Abs. Lymphocytes 6.85 x1000/ul 1.20-3.70 Above high normal [facility] Abs. Monocytes 1.07 x1000/ul 0.14-0.97 Above high normal [facility] Abs. Eosinophils 0.43 x1000/ul 0.00-0.76 Normal (applies to non-numeric results) [facility] Abs. Basophils 0.00 x1000/ul 0.00-0.22 Normal (applies to non-nu meric results) [facility] Abs. Myelocytes 0.21 x1000/ul 0.00-0.00 Above high normal [facility] Abs. Promyelocytes 0.21 x1000/ul 0.00-0.00 Above high normal [facility] RBC Morphology \\Normal based on slide scan [facility] Smudge Cells \\Present [facility] Platelet Estimate Automated platelet count confirmed by slide scan [facility] The above 19 analytes were performed by [facility] [id number], ,[place] [address] ID Date Data Source [id number] 03/17/2021 06:32:00 AM EDT [facility] Name Value Range Interpretation Code Description Data Yany rce(s) Supporting Document(s) WBC 21.42 x1000/ul 4.80-10.00 Above high normal [facility] RBC 3.94 x1Mil/ul 4.70-6.10 Below low normal [facility] Hemoglobin 12.8 g/dl 14.0-18.[address] [facility] Hematocrit 38.5 % 42.0-52.[address] [facility] MCV 97.7 fL 80.0-94.[address] [facility] MCH 32.5 pg 27.0-31.[address] [facility] MCHC 33.2 g/dl 32.2-37.0 Normal (applies to non-numeric resul ts) [facility] RDW 13.5 % 11.5-14.5 Normal (applies to non-numeric resul ts) [facility] Platelet Count 151 x1000/ul 130-400 Normal (applies to non-numeric results) [facility] MPV 10.6 fL 9.4-12.4 Normal (applies to non-numeric resul ts) [facility] Nucleated RBCs 0.00 % 0.00-0.20 Normal (applies to non-numeric r esults) [facility] Abs. Nucleated RBCs 0.00 x1000/ul 0.00-0.02 Normal (appl ies to non-numeric results) [facility] The above 12 analytes were performed by [facility] [id number], ,[place] [address] ID Date Data Source [id number] 03/17/2021 05:32:00 AM [facility] Name Value Range Interpretation Code Description Data Yany rce(s) Supporting Document(s) PT, No Coag Tx/Coag Tx Unk 23.3 Seconds 10.2-12.9 Above high normal [facility] Attention: Effeciive 11/16/2019 The nor mal [...] Tx Unk) 2.1 0.9-1.1 Above high normal [facility] Suggested therapeutic INR ranges for ora l anticoagulant therapy: Indication:INRPrevention and treatment of DVT and PE2.0 - 3.0Prevention of systemic embolism with atrial fib., acute NV and 2.0 -3.0 tissue prosthetic heart valves.Prevention of systemic embolism in patients with mechanical heart2.5 -3.5 valves.NOTE: The INR is only valid for patients on stable oral anticoagulanttherapy. The above 2 analytes were performed by [facility] [id number], ,[place] [address] ID Date Data Source [id number] 03/17/2021 05:13:00 AM [facility] Name Value Range Interpretation Code Description Data Yany rce(s) Supporting Document(s) Hemoglobin 12.8 g/dl 14.0-18.[address] [facility] The above 1 analytes were performed by [facility] [id number], ,[place] [address] ID Date Data Source [id number] 03/17/2021 05:13:00 AM EDT [facility] Name Value Range Interpretation Code Description Data Yany rce(s) Supporting Document(s) Hematocrit 38.9 % 42.0-52.[address] [facility] The above 1 analytes were performed by [facility] [id number], ,[place] [address] ID Date Data Source [id number] 03/17/2021 04:38:37 AM EDT [facility] Name Value Range Interpretation Code Description Data Yany rce(s) Supporting Document(s) Care Plan [facility] [id number] lbm [file] [id number] ID Date Data Source [id number] 03/17/2021 12:07:00 AM EDT [facility] Name Value Range Interpretation Code Description Data Yany rce(s) Supporting Document(s) Hemoglobin 13.4 g/dl 14.0-18.[address] [facility] The above 1 analytes were performed by [facility] [id number] [facility], ,[place] [address] ID Date Data Source [id number] 03/17/2021 12:07:00 AM EDT [facility] Name Value Range Interpretation Code Description Data Yany rce(s) Supporting Document(s) Hematocrit 39.9 % 42.0-52.[address] [facility] The above 1 analytes were performed by [facility] [id number] [facility], ,[place] [address] ID Date Data Source [id number] 03/16/2021 12:46:00 PM EDT [facility] Name Value Range Interpretation Code Description Data Yany rce(s) Supporting Document(s) COVID-19 NEGATIVE [facility] This lab was ordered by [facility] Lab and reported by [facility]. ID Date Data Source [id number] 03/16/2021 01:06:00 PM EDT [facility] TSYS[facility] [id number] Name Value Range Interpretation Code Description Data Yany rce(s) Supporting Document(s) COVID-[address] [facility] Negative results should be treated as pr [...] are for the indentification of SARS-CoV-2 RNA. [id number] RNA is generally detectable in respiratorysamples during the actue phase of infection. ID Date Data Source [id number] 03/16/2021 11:32:00 AM EDT [facility] TSYS[facility] [id number] Name Value Range Interpretation Code Description Data Yany rce(s) Supporting Document(s) URINE RBC 3-5 /hpf 0-[address] [facility] URINE WBC 0-2 /hpf 0-5 [facility] URINE BACTERIA 2+ NONE SEEN H [facility] URINE MUCUS 2+ NEGATIVE H [facility] ID Date Data Source [id number] 03/16/2021 11:29:00 AM EDT [facility]SYS[facility] [id number] Name Value Range Interpretation Code Description Data Yayn rce(s) Supporting Document(s) URINE COLOR. DARK YELLOW [facility] URINE APPEARANCE SLIGHTY CLOUDY [facility]ital URINE GLUCOSE (UA) NEGATIVE mg/dL NEGATIVE [facility] URINE BILIRUBIN NEGATIVE NEGATIVE [facility] URINE KETONE NEGATIVE mg/dL NEGATIVE [facility] SPECIFIC GRAVITY,URINE 1.025 1.005-1.030 [facility] URINE BLOOD 1+(SMALL) NEGATIVE [facility] PH,URINE 5.5 5.0-9.0 [facility] URINE PROTEIN 2+(100) mg/dL NEGATIVE [facility] URINE UROBILINOGEN NORMAL(0.2-1) mg/dL 0-1 R [facility] URINE NITRATE NEGATIVE NEGATIVE [facility] URINE LEUKOCYTE ESTERASE NEGATIVE NEGATIVE [facility] ID Date Data Source [id number] 03/16/2021 09:19:00 AM EDT [facility] TSYSORDER [id number] Name Value Range Interpretation Code Description Data Yany rce(s) Supporting Document(s) NEUTROPHILS 25 % 50-[address] [facility] LYMPHOCYTE 69 % 25-[address] [facility] MONOCYTE 2 % 2.0-10.0 [facility] Eosinophils [#/volume] in Blood by Automated count 4 % 0-5 [facility] BASOPHIL 0 % 0-2 [facility] PLATELET ESTIMATE NORMAL NORMAL [facility] RBC MORPHOLOGY EXPECTED RESULTS:NORMAL= NORMOCHROMIC, NORMOCYTIC CELLSAbnormal Morphologic Findings > or = to 1+ are reported.Clinicopathologic correlation by the provider is required todetermine significance of finding. ID Date Data Source [id number] 03/16/2021 09:30:00 AM T [facility] TSYSORDER [id number] Name Value Range Interpretation Code Description Data Yany rce(s) Supporting Document(s) WHITE BLOOD COUNT 25.8 K/mm3 4.0-10.0 H [facility] sera RED BLOOD COUNT 4.33 M/mm3 4.50-6.00 L [facility] HEMOGLOBIN 14.0 gm/dL 14.0-18.0 [facility] HEMATOCRIT 40.6 % 42.0-54.[address] [facility] MEAN CELL VOLUME 93.8 fl 80-96 [facility] MEAN CORPUSCULAR HEMOGLOBIN 32.3 pg 27.0-31.0 H [facility] MEAN CORPUSCULAR HGB CONC 34.5 g/dl 32.0-36.0 [facility] RED CELL DISTRIBUTION WIDTH 13.5 % 10.0-14.5 [facility] PLATELET COUNT 165 K/mm3 172-[address] [facility] MEAN PLATELET VOLUME 10.2 fl 9.0-13.0 [facility] GRAN % 21.8 % 50-80.[address] [facility] IG% 0.2 % 0.0-0.2 [facility] LYMPH % 73.9 % 25.0-50.[address] [facility] MONO % 2.5 % 2.0-10.0 [facility] EOS % 1.4 % 0-5.0 [facility] BASO % 0.2 % 0.0-2.0 [facility] GRAN # 5.6 K/mm3 2.0-8.00 [facility] IG# 0.0 K/mm3 0.0-0.2 [facility] LYMPH # 19.1 K/mm3 1.0-5.0 *[address] [facility] MONO # 0.7 K/mm3 0.10-1.20 [facility] EOS # 0.4 K/mm3 0.0-0.5 [facility] BASO # 0.0 K/mm3 0.0-0.2 [facility] ID Date Data Source [id number] 03/16/2021 09:18:00 AM EDT [facility] l TSYSORDER [id number] Name Value Range Interpretation Code Description Data Yany rce(s) Supporting Document(s) BLOOD TYPE ABO O [facility] RH TYPE POSITIVE [facility] ANTIBODY SCREEN NEGATIVE [facility] ID Date Data Source [id number] 03/16/2021 10:27:00 AM EDT [facility] [id number] Name Value Range Interpretation Code Description Data Yany rce(s) Supporting Document(s) LACTIC ACID 0.8 mmol/L 0.4-2.0 [facility] ID Date Data Source [id number] 03/16/2021 10:16:00 AM EDT [facility] [id number] Name Value Range Interpretation Code Description Data Yany rce(s) Supporting Document(s) PARTIAL THROMBOPLASTIN TIME 53.7 SECONDS 21.2-27.[address] [facility] ID Date Data Source [id number] 03/16/2021 10:16:00 AM EDT [facility] l TSYSORDER [id number] Name Value Range Interpretation Code Description Data Yany rce(s) Supporting Document(s) PROTHROMBIN TIME (PATIENT) 28.0 SECONDS 9.1-11.[address] [facility] INR 2.72 0.87-1.[address] [facility] ID Date Data Source [id number] 03/16/2021 10:07:00 AM EDT [facility] l TSYSORDER [id number] Name Value Range Interpretation Code Description Data Yany rce(s) Supporting Document(s) DIGOXIN 0.55 ng/ml 0.9-2.[address] [facility] ID Date Data Source [id number] 03/16/2021 10:04:00 AM EDT [facility] l TSYSORDER [id number] Name Value Range Interpretation Code Description Data Yany rce(s) Supporting Document(s) LIPASE 206 U/L 73-393 [facility] ID Date Data Source [id number] 03/16/2021 10:04:00 AM T [facility] TSYSORDER [id number] Name Value Range Interpretation Code Description Data Yany rce(s) Supporting Document(s) GLUCOSE 100 mg/dL 74-106 [facility] BLOOD UREA NITROGEN 17 mg/dL 7-18 [facility] CREATININE 0.97 mg/dL 0.7-1.3 [facility] SODIUM 144 mmol/L 136-145 [facility] POTASSIUM 3.7 mmol/L 3.5-5.1 [facility] CHLORIDE 105 mmol/L 98-107 [facility] CO2 29 mmol/L 21-32 [facility] CALCIUM 8.3 mg/dL 8.5-10.1 [facility] ANION GAP 10.0 mmol/L 5-12 [facility] GLOMERULAR FILTRATION RATE 76 mL/min [facility] GFR IS CALCULATED IN mL/min/1.73m2 MARCELINO L FUNCTION: >90MILDLY DECREASED: 60-89MILDY TO MODERATELY DECREASED: 45-59 MODERATELY TO SEVERELY DECREASED: 30-44SEVERELY DECREASED: 15-29RENAL FAILURE: <15 AST 31 U/L 15-37 [facility] ALT 33 U/L 12-78 [facility] ALKALINE PHOSPHATASE 161 U/L 46-116 H [facility] pital TOTAL BILIRUBIN 0.4 mg/dL 0.2-1.0 [facility] TOTAL PROTEIN 7.3 g/dl 6.4-8.2 [facility] ALBUMIN 3.7 gm/dL 3.4-5.0 [facility] ID Date Data Source [id number] 01/01/2021 08:09:00 AM EDT [facility] l Name Value Range Interpretation Code Description Data Yany rce(s) Supporting Document(s) VITAMIN B12 506 pg/mL [id number] [facility] Performed at: RN - [facility] [address] [id number] Director: Claire Hernandez MD, Phone: [phone] ID Date Data Source [id number] 01/01/2021 08:07:00 AM EDT [facility] Name Value Range Interpretation Code Description Data Yany rce(s) Supporting Document(s) Vitamin B12 506 pg/mL [id number] [facility] ID Date Data Source [id number] [facility] Name Value Range Interpretation Code Description Data Yany rce(s) Supporting Document(s) FREE T4 0.8 ng/dL 0.76-1.46 [facility] ID Date Data Source [id number] 12/31/2020 01:52:00 PM [facility] l Name Value Range Interpretation Code Description Data Yany rce(s) Supporting Document(s) TSH 1.929 uIU/mL 0.360-3.740 [facility] ID Date Data Source [id number] 12/31/2020 01:23:00 PM [facility] Name Value Range Interpretation Code Description Data Yany rce(s) Supporting Document(s) B-TYPE NATRIURETIC PEPTIDE 1090 pg/ml 0-125 *H [facility] ID Date Data Source [id number] 12/[facility]2020 [facility] Name Value Range Interpretation Code Description Data Yany rce(s) Supporting Document(s) DILANTIN/PHENYTOIN 9.6 ug/ml 10.0-20.0 [facility] sera ID Date Data Source [id number] 12/31/2020 01:23:00 PM [facility] l Name Value Range Interpretation Code Description Data Yany rce(s) Supporting Document(s) DIGOXIN 0.79 ng/ml 0.9-2.0 [facility] ID Date Data Source [id number] 12/31/2020 01:23:00 PM EDT [facility] Name Value Range Interpretation Code Description Data Yany rce(s) Supporting Document(s) PHENOBARBITOL 31.4 ug/ml 15.0-40.0 [facility] ID Date Data Source [id number] 12/31/2020 01:23:00 PM EDT [facility] l Name Value Range Interpretation Code Description Data Yany rce(s) Supporting Document(s) CHOLESTEROL 181 mg/dL 0-200 [facility] TRIGLYCERIDES 111 mg/dL 0-150 [facility] LDL CHOLESTEROL 113 mg/dL 0-[address] [facility] HDL CHOLESTEROL 46 mg/dL 40-60 [facility] CHOL/HDL RATIO 3.9 0.0-5.0 [facility] ID Date Data Source [id number] 12/31/2020 01:23:00 PM EDT [facility] l Name Value Range Interpretation Code Description Data Yany rce(s) Supporting Document(s) GLUCOSE 94 mg/dL 74-106 [facility] BLOOD UREA NITROGEN 17 mg/dL 7-18 [facility] CREATININE 1.00 mg/dL 0.7-1.3 [facility] SODIUM 144 mmol/L 136-145 [facility] POTASSIUM 4.5 mmol/L 3.5-5.1 [facility] CHLORIDE 106 mmol/L 98-107 [facility] CO2 31 mmol/L 21-32 [facility] CALCIUM 8.6 mg/dL 8.5-10.1 [facility] ANION GAP 7.0 mmol/L 5-12 [facility] GLOMERULAR FILTRATION RATE 74 mL/min [facility] GFR IS CALCULATED IN mL/min/1.73m2 MARCELINO L FUNCTION: >90MILDLY DECREASED: 60-89MILDY TO MODERATELY DECREASED: 45-59 MODERATELY TO SEVERELY DECREASED: 30-44SEVERELY DECREASED: 15-29RENAL FAILURE: <15 AST 28 U/L 15-37 [facility] ALT 29 U/L 12-78 [facility] ALKALINE PHOSPHATASE 155 U/L 46-116 H [facility] pital TOTAL BILIRUBIN 0.4 mg/dL 0.2-1.0 [facility] TOTAL PROTEIN 6.7 g/dl 6.4-8.2 [facility] ALBUMIN 3.8 gm/dL 3.4-5.0 [facility] ID Date Data Source [id number] 12/31/2020 11:29:00 AM EDT [facility] Name Value Range Interpretation Code Description Data Yany rce(s) Supporting Document(s) NEUTROPHILS 34 % 50-[address] [facility] LYMPHOCYTE 53 % 25-[address] [facility] MONOCYTE 3 % 2.0-10.0 [facility] Eosinophils [#/volume] in Blood by Automated count 1 % 0-5 [facility] BASOPHIL 1 % 0-2 [facility] ATYPICAL LYMPH 8 [facility] DIFFERENTIAL COMMENT . [facility] MANY SMUDGE CELLS NOTED PLATELET ESTIMATE DECREASED NORMAL [facility] RBC MORPHOLOGY EXPECTED RESULTS:NORMAL= NORMOCHROMIC, NORMOCYTIC CELLSAbnormal Morphologic Findings > or = to 1+ are reported.Clinicopathologic correlation by the provider is required todetermine significance of finding. ID Date Data Source [id number] 12/31/2020 11:44:00 AM EDT [facility] Name Value Range Interpretation Code Description Data Yany rce(s) Supporting Document(s) WHITE BLOOD COUNT 25.5 K/mm3 4.0-10.0 H [facility] RED BLOOD COUNT 4.10 M/mm3 4.50-6.00 L [facility] HEMOGLOBIN 13.2 gm/dL 14.0-18.0 [facility] HEMATOCRIT 39.0 % 42.0-54.0 [facility] MEAN CELL VOLUME 95.1 fl 80-96 [facility] MEAN CORPUSCULAR HEMOGLOBIN 32.2 pg 27.0-31.0 H [facility] MEAN CORPUSCULAR HGB CONC 33.8 g/dl 32.0-36.0 [facility] RED CELL DISTRIBUTION WIDTH 13.1 % 10.0-14.5 [facility] PLATELET COUNT 161 K/mm3 172-[address] [facility] ID Date Data Source [id number] 12/31/2020 08:36:00 AM EDT [facility] ([facility]) Name Value Range Interpretation Code Description Data [facility] rce(s) Supporting Document(s) Thyroid Stimulating Hormone 1.929 ME [facility] ([facility]) Free T4 0.8 [facility] ([facility]) Natriuretic peptide.B prohormone N-Terminal [Mass/volu me] in Serum or Plasma 1090 [facility] ([facility]) ID Date Data Source [id number] 12/31/2020 08:36:00 AM EDT [facility] ([facility]) Name Value Range Interpretation Code Description Data Yany rce(s) Supporting Document(s) Triglycerides 111 [facility] ([facility]) HDL 46 40-60 [facility] ([facility]) Cholesterol 181 0-200 [facility] ([facility]) Chol/HDL Ratio 3.9 [facility] ([facility]) Cholesterol in LDL [Mass/volume] in Serum or Plasma by calculation 11 3 [facility] ([facility]) ID Date Data Source [id number] 12/31/2020 08:36:00 AM EDT [facility] ([facility]) Name Value Range Interpretation Code Description Data Yany rce(s) Supporting Document(s) Albumin [Mass/volume] in Serum or Plasma 3.8 [facility] ([facility]) Alanine aminotransferase [Enzymatic activity/volume] in Serum or Pl asma 29 [facility] ([facility]) Carbon dioxide, total [Moles/volume] in Serum or Plasma 31 [facility] ([facility]) Calcium [Mass/volume] in Serum or Plasma 8.6 [facility] ([facility]) Alkaline phosphatase [Enzymatic activity/volume] in Serum or Plasma 1 55 [facility] ([facility]) Potassium [Moles/volume] in Serum or Plasma 4.5 [facility] ([facility]) Chloride [Moles/volume] in Serum or Plasma 106 MEDENT ([facility]) Protein [Mass/volume] in Serum or Plasma 6.7 MEDENT ([facility]) Sodium 144 MEDENT ([facility]) Aspartate aminotransferase [Enzymatic activity/volume] in Serum or Plasma 28 MEDENT ([facility]) Glucose 94 74-106 MEDENT ([facility]) Urea nitrogen [Mass/volume] in Serum or Plasma 17 MEDENT ([facility]) Creatinine For GFR 1.00 MEDENT ([facility]) ID Date Data Source [id number] 12/31/2020 08:36:00 AM EDT [facility] Name Value Range Interpretation Code Description Data Yany rce(s) Supporting Document(s) Red Blood Count 4.10 4.50-6.00 MEDENT ([facility]) Platelets 161 172-450 MEDENT ([facility] White Blood Count 25.5 4.0-10.0 MEDENT ([facility]) Hemoglobin 13.2 14.0-18.0 MEDENT ([facility]) Hematocrit 39.0 42.0-54.0 MEDENT ([facility]) ID Date Data Source [id number] 09/07/2020 12:58:00 PM EDT [facility] FAX [phone] Name Value Range Interpretation Code Description Data Yany rce(s) Supporting Document(s) PSA DIAGNOSIS 0.40 ng/mL 0.0-4.0 [facility] THIS ASSAY WAS PERFORMED ON THE [employer] EX[employer] USINGTHE B- GALACTOSIDASE/CRPG METHODOLOGY. THE PSA IS NOT AN ABSOLUTE TEST FOR MALIGNANCY. IT SHOULD BEUSED IN CONJUNCTION WITH INFORMATION AVAILABLE FROM THECLINICAL EVALUATION AND OTHER DIAGNOSTIC PROCEDURES. VALUES OBTAINED WITH DIFFERENT ASSAY METHODS CANNOT BE USEDINTERCHANGEABLY. ID Date Data Source [id number] 06/28/2020 02:22:00 PM EST MEDENT ([facility]) Name Value Range Interpretation Code Description Data Yany rce(s) Supporting Document(s) Cholesterol 198 0-200 MEDENT ([facility]) Triglycerides 107 MEDENT ([facility]) HDL 48 40-60 [facility] Cholesterol in LDL [Mass/volume] in Serum or Plasma by calculation 12 9 MEDENT ([facility]) Chol/HDL Ratio 4.1 MEDENT ([facility]) ID Date Data Source [id number] 06/28/2020 02:22:00 PM EST MEDENT ([facility]) Name Value Range Interpretation Code Description Data Yany rce(s) Supporting Document(s) Albumin [Mass/volume] in Serum or Plasma 4.0 MEDENT ([facility]) Calcium [Mass/volume] in Serum or Plasma 9.4 MEDENT ([facility]) Alanine aminotransferase [Enzymatic activity/volume] in Serum or Pl asma 29 MEDENT ([facility]) Chloride [Moles/volume] in Serum or Plasma 101 MEDENT ([facility]) Carbon dioxide, total [Moles/volume] in Serum or Plasma 31 MEDENT ([facility]) Alkaline phosphatase [Enzymatic activity/volume] in Serum or Plasma 1 46 MEDENT ([facility]) Protein [Mass/volume] in Serum or Plasma 7.4 MEDENT ([facility]) Potassium [Moles/volume] in Serum or Plasma 4.3 MEDENT ([facility]) Aspartate aminotransferase [Enzymatic activity/volume] in Serum or Plasma 30 MEDENT ([facility]) Sodium 140 MEDENT ([facility]) Urea nitrogen [Mass/volume] in Serum or Plasma 19 MEDENT ([facility]) Glucose 90 74-106 MED[facility] Creatinine For GFR 1.07 MEDENT ([facility]) ID Date Data Source [id number] 06/28/2020 02:22:00 PM EST MEDENT ([facility]) Name Value Range Interpretation Code Description Data Yany rce(s) Supporting Document(s) Free T4 0.8 MEDENT ([facility]) Thyroid Stimulating Hormone 2.763 ME DENT ([facility]) ID Date Data Source [id number] 06/29/2020 08:10:00 AM EST [facility] Name Value Range Interpretation Code Description Data Yany rce(s) Supporting Document(s) VITAMIN B12 604 pg/mL [id number] [facility] Performed at: RN - [facility] [address] [id number] Director: Claire Hernandez MD, Phone: [phone] ID Date Data Source [id number] 06/29/2020 08:06:00 AM EST [facility] Name Value Range Interpretation Code Description Data Yany rce(s) Supporting Document(s) Vitamin B12 604 pg/mL [id number] [facility] ID Date Data Source [id number] 06/28/2020 03:27:00 PM EST [facility] Name Value Range Interpretation Code Description Data Yany rce(s) Supporting Document(s) B-TYPE NATRIURETIC PEPTIDE 686 pg/ml 0-125 *[facility] ID Date Data Source [id number] 06/28/2020 03:27:00 PM EST [facility] Name Value Range Interpretation Code Description Data Yany rce(s) Supporting Document(s) DILANTIN/PHENYTOIN 7.8 ug/ml 10.0-20.0 L [facility] sera ID Date Data Source [id number] 06/28/2020 03:27:00 PM EST [facility] Name Value Range Interpretation Code Description Data Yany rce(s) Supporting Document(s) PHENOBARBITOL 28.4 ug/ml 15.0-40.0 [facility] ID Date Data Source [id number] 06/28/2020 03:27:00 PM EST [facility] Name Value Range Interpretation Code Description Data Yany rce(s) Supporting Document(s) DIGOXIN 0.80 ng/ml 0.9-2.[address] [facility] ID Date Data Source [id number] 06/28/2020 03:27:00 PM EST [facility] l Name Value Range Interpretation Code Description Data Yany rce(s) Supporting Document(s) CHOLESTEROL 198 mg/dL 0-200 [facility] TRIGLYCERIDES 107 mg/dL 0-150 [facility] LDL CHOLESTEROL 129 mg/dL 0-[address] [facility] HDL CHOLESTEROL 48 mg/dL 40-60 [facility] CHOL/HDL RATIO 4.1 0.0-5.0 [facility] ID Date Data Source [id number] 06/28/2020 03:27:00 PM EST [facility] l Name Value Range Interpretation Code Description Data Yany rce(s) Supporting Document(s) GLUCOSE 90 mg/dL 74-106 [facility] BLOOD UREA NITROGEN 19 mg/dL 7-18 H [facility] CREATININE 1.07 mg/dL 0.7-1.3 [facility] SODIUM 140 mmol/L 136-145 [facility] POTASSIUM 4.3 mmol/L 3.5-5.1 [facility] CHLORIDE 101 mmol/L 98-107 [facility] CO2 31 mmol/L 21-32 [facility] CALCIUM 9.4 mg/dL 8.5-10.1 [facility] ANION GAP 8.0 mmol/L 5-12 [facility] GLOMERULAR FILTRATION RATE 68 mL/min [facility] GFR IS CALCULATED IN mL/min/1.73m2 MARCELINO L FUNCTION: >90MILDLY DECREASED: 60-89MILDY TO MODERATELY DECREASED: 45-59 MODERATELY TO SEVERELY DECREASED: 30-44SEVERELY DECREASED: 15-29RENAL FAILURE: <15 AST 30 U/L 15-37 [facility] ALT 29 U/L 12-78 [facility] ALKALINE PHOSPHATASE 146 U/L 46-116 H [facility] pital TOTAL BILIRUBIN 0.5 mg/dL 0.2-1.0 [facility] TOTAL PROTEIN 7.4 g/dl 6.4-8.2 [facility] ALBUMIN 4.0 gm/dL 3.4-5.0 [facility] ID Date Data Source [id number] 06/28[facility]59[facility] Range Interpretation Code Description Data Yany rce(s) Supporting Document(s) TSH 2.763 uIU/mL 0.36-3.74 [facility] ID Date Data Source [id number] 06/28/2020 02:59:00 PM [facility] Name Value Range Interpretation Code Description Data Yany rce(s) Supporting Document(s) FREE T4 0.8 ng/dL 0.76-1.46 [facility] ID Date Data Source [id number] 06/28/2020 02:40:00 PM [facility] Name Value Range Interpretation Code Description Data Yany rce(s) Supporting Document(s) PROTHROMBIN TIME (PATIENT) 16.7 SECONDS 9.1-11.[address] [facility] INR 1.62 0.87-1.[address] [facility] Procedure Social History Code Duration Value Status Description Data Source(s ) Smoking 03/28/2021 12:00:00 AM EDT Never Smoker completed Never S ninoska eCW1 ([facility]) Alcohol intake 03/19/2021 12:00:00 AM EDT Lifetime non-drinker (finding) completed Lifetime non-drinker (finding) [facility] stem Tobacco use and exposure 03/19/2021 12:00:00 AM EDT Never used co mpleted Never used [facility] Smoking 03/19/2021 12:00:00 AM EDT Never smoker completed Never s ninoska [facility] Smoking 02/06/2021 12:00:00 AM EDT Patient has never smoked co mpleted Patient has never smoked MEDENT ([facility]) Smoking 01/08/2021 12:00:00 AM EDT Never Smoker completed Never S moker eCW1 ([facility]) Smoking 01/08/2021 12:00:00 AM EDT Never Smoker completed Never S moker eCW1 ([facility]) Smoking 07/11/2020 12:00:00 AM EST Never Smoker completed Never S moker eCW1 ([facility]) Smoking 07/11/2020 12:00:00 AM EST Never Smoker completed Never S moker eCW1 ([facility]) Smoking 07/11/2020 12:00:00 AM EST Never Smoker completed Never S moker eCW1 ([facility]) Smoking 07/11/2020 12:00:00 AM EST Never Smoker completed Never S moker eCW1 ([facility]) Vital Signs ID Date Data Source [id number] Name Value Range Interpretation Code Description Data Source(s) Body weight 177.00 [lb_av] 177.00 [lb_av] MEDEN T ([facility]) Body height 66 [in_i] 66 [in_i] MEDENT ([facility]) 5'6" Body mass index (BMI) [Ratio] 28.6 kg/m2 28.6 k g/m2 MEDENT ([facility]) Heart rate 87 /min 87 /min MEDENT ([facility]) Systolic blood pressure--sitting 144 mm[Hg] 144 mm[Hg] MEDENT ([facility]) Ra, large cuff Diastolic blood pressure--sitting 84 mm[Hg] 84 mm[Hg] MEDENT ([facility]) Ra, large cuff Body weight 176 [lb_av] 176 [lb_av] eCW1 ([facility]) Body height 63.5 [in_i] 63.5 [in_i] eCW1 ([facility]) Body mass index (BMI) [Ratio] 30.68 kg/m2 30.68 kg/m2 eCW1 ([facility]) Body temperature 98.0 [degF] 98.0 [degF] eCW1 ( [facility]) Heart rate 78 /min 78 /min eCW1 ([facility]) Oxygen saturation in Arterial blood by Pulse oximetry 93 % 93 % eCW1 ([facility]) Systolic blood pressure 130 mm[Hg] 130 mm[Hg] e CW1 ([facility]) Diastolic blood pressure 80 mm[Hg] 80 mm[Hg] eCW1 ([facility]) Body temperature 36.[address] [facility] Systolic blood pressure 144 mm[Hg] 144 mm[Hg] M [facility] Diastolic blood pressure 60 mm[Hg] 60 mm[Hg] [facility] Heart rate 85 /min 85 /min [facility] Respiratory rate 18 /min 18 /min [facility] Oxygen saturation in Arterial blood by Pulse oximetry 99 % 99 % [facility] Body height 162.5 cm 162.5 cm [facility] Body weight 83.915 kg 83.915 kg [facility] Body mass index (BMI) [Ratio] 31.78 kg/m2 31.78 kg/m2 [facility] Body weight 173.00 [lb_av] 173.00 [lb_av] HUMA Bose ([facility]) Body height 66 [in_i] 66 [in_i] ELDER ([facility]) 5'6" Body mass index (BMI) [Ratio] 27.9 kg/m2 27.9 k g/m2 MEDENT ([facility]) Systolic blood pressure--sitting 124 mm[Hg] 124 mm[Hg] MEDENT ([facility]) Ra, medium cuff Diastolic blood pressure--sitting 80 mm[Hg] 80 mm[Hg] MEDENT ([facility]) Ra, medium cuff Diastolic blood pressure--sitting 86 mm[Hg] 86 mm[Hg] MEDENT ([facility]) Ra, large cuff Heart rate 70 /min 70 /min MEDENT ([facility]) Body weight 176.00 [lb_av] 176.00 [lb_av] HUMA T ([facility]) Body height 66 [in_i] 66 [in_i] ELDER ([facility]) 5'6" Body mass index (BMI) [Ratio] 28.4 kg/m2 28.4 k g/m2 MEDKRYSTYNA ([facility]) Systolic blood pressure--sitting 158 mm[Hg] 158 mm[Hg] MEDENT ([facility]) Ra, large cuff Body weight 195 [lb_av] 195 [lb_av] eCW1 ([facility]) Body height 64 [in_i] 64 [in_i] eCW1 ([facility]) Body mass index (BMI) [Ratio] 33.47 kg/m2 33.47 kg/m2 eCW1 ([facility]) Heart rate 89 /min 89 /min eCW1 ([facility]) Respiratory rate 19 /min 19 /min eCW1 ([facility]) Body temperature 97.8 [degF] 97.8 [degF] eCW1 ( [facility]) Systolic blood pressure 164 mm[Hg] 164 mm[Hg] e CW1 ([facility]) Diastolic blood pressure 94 mm[Hg] 94 mm[Hg] eCW1 ([facility]) Body height 63.5 [in_i] 63.5 [in_i] eCW1 ([facility]) Body weight 176 [lb_av] 176 [lb_av] eCW1 ([facility]) Body mass index (BMI) [Ratio] 30.68 kg/m2 30.68 kg/m2 eCW1 ([facility]) Body temperature 98.1 [degF] 98.1 [degF] eCW1 ( [facility]) Heart rate 72 /min 72 /min eCW1 ([facility]) Oxygen saturation in Arterial blood by Pulse oximetry 97 % 97 % eCW1 ([facility]) Systolic blood pressure 128 mm[Hg] 128 mm[Hg] e CW1 ([facility]) Diastolic blood pressure 72 mm[Hg] 72 mm[Hg] eCW1 ([facility]) Body height 66 [in_i] 66 [in_i] MEDENT ([facility]) 5'6" Body mass index (BMI) [Ratio] 29.7 kg/m2 29.7 k g/m2 MEDENT ([facility]) Body weight 184.00 [lb_av] 184.00 [lb_av] MEDEN T ([facility]) Heart rate 69 /min 69 /min MEDENT ([facility]) Systolic blood pressure--sitting 130 mm[Hg] 130 mm[Hg] MEDENT ([facility]) Ra, large cuff Diastolic blood pressure--sitting 78 mm[Hg] 78 mm[Hg] MEDENT ([facility]) Ra, large cuff Body temperature 97.6 [degF] 97.6 [degF] eCW1 ( [facility]) Heart rate 68 /min 68 /min eCW1 ([facility]) Respiratory rate 16 /min 16 /min eCW1 ([facility]) Systolic blood pressure 122 mm[Hg] 122 mm[Hg] e CW1 ([facility]) Diastolic blood pressure 76 mm[Hg] 76 mm[Hg] eCW1 ([facility]) Body height 63.5 [in_i] 63.5 [in_i] eCW1 ([facility]) Body weight 188 [lb_av] 188 [lb_av] eCW1 ([facility]) Body mass index (BMI) [Ratio] 32.78 kg/m2 32.78 kg/m2 W1 ([facility]) Patient Treatment Plan of Care Planned Activity Planned Date Details Description Data Source (s) Warfarin Sodium 1 MG Oral Tablet [facility] Warfarin Sodium 6 MG Oral Tablet [facility] Spironolactone 25 MG Oral Tablet [facility] Furosemide 20 MG Oral Tablet [facility] Furosemide 40 MG Oral Tablet [facility] Aspirin 81 MG Delayed Release Oral Tablet [facility]
--- NOTE | 2021-04-26 23:33 | HPEPDOC ---
General Date of Admission Apr 26, 2021 at 21:25 Date of Service: Apr 26, 2021 Chief Complaint The patient is a 70-year-old male admitted with a reason for visit of Left Leg Dvt. Source: Patient History of Present Illness Edson Gonzalez is a 70yo M with past medical history of hypertension, rheumatic fever age 11, A. fib, CHF, BPH, hypercholesterolemia, gout, metastatic colon cancer and as needed home oxygen 2 L use who presents with complaints of left lower extremity swelling/discomfort. Patient is alert and oriented x3 however there are times where it is difficult to understand him given his speech/accent. There is a question regarding health literacy. Reportedly patient has had left lower extremity swelling and discomfort for the past month. Patient does have known history of left knee chronic pain and walks with a cane. However, as the left lower extremity was beginning to swell and had some redness to it he underwent an ultrasound today. The ultrasound showed positive DVT left lower extremity. As pt has been off of his anticoagulation for anticipated liver biopsy due to metastatic colon cancer; patient was sent today to hospital for anticoagulation consideration and PE consideration. Pt denies barnes, sinus congestion, sore throat, productive cough, sob, palpitations, chest pain, n/v/d, abdominal pain, weakness, sensory changes or syncope. Patient does endorse some cold intolerance and reports he "is always cold". Patient with notable unilateral swelling left lower extremity is almost double the size of right lower extremity. CTA chest negative PE but did show + cardiomegaly and trace pleural effusions as well as possible pulmonary artery hypertension. Oncology and vascular contacted with recommendations for heparin drip and vascular consult for consideration of filter placement. Initial lab work is revealing for leukocytosis however in setting of metastatic cancer this is not abnormal. Patient afebrile, not tachycardic or tachypneic. Patient will be admitted for further evaluation management presenting concerns. Home Medications Scheduled Amlodipine Besylate (Amlodipine Besylate) 2.5 Mg Tablet, 2.5 MG PO DAILY, (Reported) Ascorbic Acid (Vitamin C) 500 Mg Tab, 1,000 MG PO DAILY, (Reported) Capecitabine (Capecitabine) 500 Mg Tablet, 2,000 MG PO BID 4 tabs PO twice daily x 14 day then 7 days off DX Code C18.9 Digoxin (Digoxin) 250 Mcg Tablet, 250 MCG PO DAILY, (Reported) Docusate Sodium (Colace) 100 Mg Capsule, 100 MG PO BID, (Reported) Furosemide (Furosemide) 40 Mg Tablet, 60 MG PO DAILY, (Reported) Metoprolol Tartrate (Metoprolol Tartrate) 50 Mg Tab, 50 MG PO BID, (Reported) Multivitamins (Thera M Plus Tablet) 1 Tab Tab, 1 TAB PO DAILY, (Reported) Ondansetron HCl (Ondansetron HCl) 8 Mg Tablet, 8 MG PO TID for nausea/vomiting Phenobarbital (Phenobarbital) 32.4 Mg Tab, 64.8 MG PO BID, (Reported) Phenytoin Sodium Extended (Dilantin) 100 Mg Cap, 100 MG PO TID, (Reported) Potassium Chloride (Klor-Con M20) 20 Meq Tabcr, 20 MEQ PO DAILY, (Reported) Prochlorperazine Maleate (Prochlorperazine Maleate) 10 Mg Tablet, 10 MG PO Q6H Allergies Coded Allergies: No Known Allergies (Verified , 07/14/18) Past Medical History Medical History hypertension, rheumatic fever age 11, A. fib, CHF, BPH, hypercholesterolemia, gout, metastatic colon cancer and as needed home oxygen 2 L use Surgical History Cholecystectomy, mitral valve replacement, Family History Significant Family History: Cancer Meningitis, lung cancerbrother, fatherlung and brain cancer, motherleukemia Social History * Smoker: Denies Alcohol: Denies Drugs: denies Recent Travel/Sick Contacts: Denies: Recent travel, Recent sick contacts Psychosocial History: No pertinent psych hx Patient lives alone and has help from home health aide and his brother Bud with ADLs as needed. A-FIB/CHADSVASC A-FIB History Current/History of A-Fib/PAF?: Yes Current PO Anticoag Therapy: No (has been held x1 month for anticipation of biopsy) Treatment Treatment ordered: Heparin IV bridge Therapy Review of Systems Constitutional: Reports: Other (cold intolerance); Denies: Chills, Fever, Night Sweats Eyes: Denies: Pain, Vision change ENT: Denies: Head Aches, Ear Pain, Dysphagia Skin: Reports: Other (LLE redness); Denies: Rash, Lesions, Breakdown Pulmonary: Denies: Dyspnea, Cough Cardiovascular: Reports: Edema (LLE 2x size of RLE); Denies: Chest Pain, Palpitations, Orthopnea, Paroxysmal Noc. Dyspnea, Lt Headedness Gastrointestinal: Denies: Nausea, Vomiting, Abdominal Pain, Diarrhea Genitourinary: Denies: Dysuria, Frequency, Incontinence, Retention Hematologic: Denies: Bruising, Bleeding Excessively Musculoskeletal: Denies: Neck Pain, Back Pain, Joint Pain, Muscle Pain, Spasms Neurological: Denies: Weakness, Numbness, Change in speech, Confusion Psych: Reports: Mood Normal; Denies: Depression, Memory Issues Physical Examination General Exam: Positive: Alert, Cooperative, No Acute Distress, Other (pt accent ) Eye Exam: Positive: PERRLA, Conjunctiva & lids normal, EOMI; Negative: Sclera icteric ENT Exam: Positive: Atraumatic, Mucous membr. moist/pink, Pharynx Normal Neck Exam: Positive: Supple; Negative: JVD, thyromegaly Chest Exam: Positive: Clear to auscultation, Normal air movement Heart Exam: Positive: Rate Normal, Regular Rhythm, Normal S1, Normal S2; Negative: Murmurs, Rubs Telemetry: Positive: No significant arrhythmia Abdomen Exam: Positive: Normal bowel sounds, Soft; Negative: Tenderness, Hepatospenomegaly Extremity Exam: Positive: Edema (LLE 2x size of RLE), Normal pulses; Negative: Clubbing, Cyanosis Skin Exam: Positive: Other skin issue (redness LLE); Negative: Breakdown, Lesion Neuro Exam: Positive: Normal Gait, Normal Speech, Cranial Nerves 3-12 NL, Reflexes 2+ Psych Exam: Positive: Mental status NL, Mood NL, Oriented x 3 Other physical findings For lower extremity redness but no erythema/induration or tenderness Vital Signs Vital Signs Date Time Temp Pulse Resp B/P (MAP) Pulse Ox O2 Delivery O2 Flow Rate FiO2 04/26/21 18:00 98.1 107 22 143/77 (99) 92 04/26/21 16:32 Room Air Laboratory Data Labs 24H Laboratory Tests 2 04/26/21 17:42: Neutrophils (%) (Auto) , Nucleated Red Blood Cells % (auto) 0.1H, Neutrophils 40, Lymphocytes (Manual) 53H, Monocytes (Manual) 4, Eosinophils (Manual) 3, Anisocytosis 2+, Macrocytosis 2+, Smudge Cells 3+, Platelet Estimate DECREASED, Immature Platelet Fraction 7.5, Prothrombin Time 15.3H, Prothromb Time International Ratio 1.17, Activated Partial Thromboplast Time 74.0H, Anion Gap 6L, Glomerular Filtration Rate > 60.0, Calcium Level 8.7L, Total Bilirubin 1.1H, Direct Bilirubin 0.5H, Aspartate Amino Transf (AST/SGOT) 42H, Alanine Aminotransferase (ALT/SGPT) 37, Alkaline Phosphatase 159H, Total Creatine Kinase 121, Creatine Kinase MB 4.4H, Creatine Kinase MB Relative Index 3.64, Troponin I 0.10, OU-Qoa-M-Type Natriuretic Peptide 6273H, Total Protein 6.5, Albumin 3.3, Albumin/Globulin Ratio 1.0, Lipase 229, Thyroid Stimulating Hormone (TSH) 1.740, Digoxin Level 1.6 04/26/21 17:57: POC Glucose (Misc Panel) 112H, POC Sodium (Misc Panel) 139, POC Potassium (Misc Panel) 4.1, POC Chloride (Misc Panel) 101, POC Total CO2 (Misc Panel) 26.0, POC Blood Urea Nitrogen (Misc Panel 27H, POC Ionized Calcium (Misc Panel) 4.7, POC Creatinine (Misc Panel) 1.0, POC Hematocrit (Misc Panel) 31.0L 04/26/21 22:24: Activated Partial Thromboplast Time 74.9H CBC/BMP Laboratory Tests 04/26/21 17:42 Microbiology Microbiology 04/26/21 Respiratory Virus Panel (PCR) ([facility]), Received Pending Assessment/Plan 1. Left lower extremity DVT: Bedrest Heparin drip with close monitoring for bleeding A.m. labs Appreciate vascular consult for recommendations regarding possible filter placement 2. A. fib: Patient rate controlled Monitor patient on telemetry -continue metoprolol, digoxin 3. 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 -Monitor fluid balance, I's and O's, urinary output -Patient does not appear acutely exacerbated but as noted on CT chest there are trace pleural effusions and severe cardiomegaly -Plan to continue home medication Lasix daily -Weigh daily -Should patient have worsening oxygen requirements or appearance of increased volume consider additional diuresis. -As needed O2 2 L nasal cannula -Monitoring creatinine closely; A.m. labs -Encourage patient to follow-up with quality control engineering technician Dr. Diggs for outpatient echo; should patient show signs of acute exacerbation obtain echo 4. Malignant neoplasm of colon: Patient diagnosed in February 2021 after undergoing colonoscopy due to having black stools/rectal bleeding noted around 16 March. The colonoscopy revealed rectosigmoid colon malignant tumor adenocarcinoma. CT abdomen pelvis also showing metastases to liver and lung; patient to undergo liver biopsy to determine stage IV of the disease per oncology Dr. Schmidt. Patient is currently taking Xeloda and has been off blood thinners x1 month with plan for biopsy on Thursday. Patient also under Dr. Sanders management for radiation treatments -Monitor patient, continue home medications; patient to bring own medicine Xeloda. -As noted above, monitor for bleeding given blood thinners. -Dr. Schmidt notified during admission and recommended heparin drip as noted above; consider further consult for recommendations as needed 5. Leukocytosis: In setting of presumed metastatic cancer. Patient WBCs 26.2 this is decreased from March went as high as 30. Patient without complaints other than left lower extremity discomfort and swelling related to above. He is afebrile, normotensive and not tachycardic. -Continue to monitor for any signs or symptoms of infection and adjust plan a ccordingly. 6. Thrombocytopenia: In setting of cancer not unexpected. Again given above, monitor for bleeding. 7. Transaminitis: In setting of medication and probable liver metastasis. -A.m. labs 8. HTN: Monitor BP in setting of above. -Continue home medications Norvasc, metoprolol 9. Seizure disorder: -Seizure precautions Continue phenobarbital and Dilantin 10. Groin excoriation: Nystatin twice daily DVT prophylaxis: Heparin drip CODE STATUS: Full code. When asked regarding advanced directives or living will patient reported "asked Kevin". Patient has identified his brother Bud as his medical surrogate. Reportedly, there is paperwork regarding designation of medical surrogacy. Of note, patient lives alone and obtains help from home health aide and his brother Bud to take him to appointments or help with household needs part-time. Patient's brother Bud contacted and upon discussion he confirmed patient's speech is at baseline and at times "hard to understand him" but "just have him repeat". Bud confirmed patient is capable of decision-making and consenting for procedures/intervention, no history of intellectual disability. Disposition planning: Home pending recommendations from vascular Plan / VTE VTE Prophylaxis Ordered?: Yes SHRUTI YOUNG NP Apr 26, 2021 23:17
[2021-04-27] VITALS (8 sets, daily range): BP systolic 110–154; BP diastolic 62–86
[2021-04-27] MEDS: PHENobarbitaL 30 MG TAB PO SCH ×3 (02:00→21:04)
[2021-04-27] MEDS: METOPROLOL TART 50 MG TAB PO SCH ×3 (02:01→21:04)
[2021-04-27] MEDS: DOCUSATE SODIUM 100MG CAPSULE PO SCH ×3 (02:01→20:50)
[2021-04-27] MEDS: PROCHLORPERAZINE 5 MG TAB (S0183) PO SCH ×4 (03:03→16:50)
[2021-04-27] MEDS: ACETAMINOPHEN TAB 650MG DOSE (2X325MG) PO PRN ×2 (03:22→21:05)
[2021-04-27] MEDS: PHENYTOIN ER 100 MG CAP PO SCH ×4 (03:22→21:03)
[2021-04-27 06:10] LABS: HEMATOCRIT 32.8 % (42.0-52.0); HEMOGLOBIN 10.6 g/dl (13.5-17.5); MEAN CORPUSCULAR HEMOGLOBIN 33.8 pg (27.0-33.0); MEAN CORPUSCULAR HGB CONC 32.3 g/dl (32.0-36.5); MEAN CORPUSCULAR VOLUME 104.5 fl (80.0-96.0); RED BLOOD COUNT 3.14 10^6/uL (4.30-6.10); WHITE BLOOD COUNT 24.8 10^3/uL (4.0-10.0)
--- NOTE | 2021-04-27 06:32 | ECGEPIP ---
[facility] - ED Test Date: 2021-04-26 Pat Name: SHAHEEN DAY Department: Room: - Gender: Male Framing Specialist: AMAYA : [id number] Requested By: ROSELIA BLAIR Order Number: [id number] Reading MD: Austin Carrillo Measurements Intervals [place] Rate: 161 P: HI: QRS: -13 QRSD: 68 T: 151 QT: 278 QTc: 454 Interpretive Statements Critical Test Result: High HR probable Atrial fibrillation with rapid ventricular response with premature ventricular ventricular or aberrantly conducted complexes Low voltage QRS Cannot rule out Anteroseptal infarct , age undetermined T wave abnormality, consider lateral ischemia Baseline wandering may affect reading Baseline artifact may affect reading recommend repeat ecg due to significant artifact cw 04/18/17 rate increased QRS voltage significantly diminished Nonspecific ST T wave changes Electronically Signed on 04-27-2021 6:32:30 EDT by Austin Carrillo
[2021-04-27 06:46] LABS: PLATELET COUNT, AUTOMATED 73 10^3/uL (150-450)
[2021-04-27 07:12] LABS: BLOOD UREA NITROGEN 28 MG/DL (7-18); CALCIUM LEVEL 8.6 MG/DL (8.8-10.2); CARBON DIOXIDE LEVEL 29 MEQ/L (21-32); CHLORIDE LEVEL 105 MEQ/L (98-107); CREATININE FOR GFR 1.03 MG/DL (0.70-1.30); GLOMERULAR FILTRATION RATE > 60.0 (>42); GLUCOSE, FASTING 96 MG/DL (70-100); POTASSIUM SERUM 4.4 MEQ/L (3.5-5.1); SODIUM LEVEL 139 MEQ/L (136-145)
[2021-04-27 08:18] LABS: ATYPICAL LYMPH 3 % (0-5); EOSINOPHILS 2 % (0-3); LYMPHOCYTES 35 % (16-44); MONOCYTES 1 % (0-5); NEUTROPHILS 58 % (28-66)
[2021-04-27 08:22] LABS: PLATELET ESTIMATE DECREASED (NORMAL)
[2021-04-27 08:23] LABS: ANISOCYTOSIS 1+
[2021-04-27] MEDS ORDERED: FUROSEMIDE 100MG/10ML VIAL (J1940) IV SCH (09:00)
[2021-04-27] MEDS ORDERED: CAPECITABINE 50 MG/ML PO SCH (09:00)
[2021-04-27] MEDS ORDERED: PNEUMOCOCCAL VACCINE 0.5ML SYRINGE (PNEUMOVAX 23) IM ONE (09:00)
[2021-04-27] MEDS ORDERED: FUROSEMIDE 40 MG TAB PO SCH (09:00)
[2021-04-27] MEDS: MULTIVITAMINS/MINERALS THERAP 1 TAB PO SCH (09:06)
[2021-04-27] MEDS: ASCORBIC ACID 500 MG TAB PO SCH (09:06)
[2021-04-27] MEDS: DIGOXIN 0.25 MG TAB PO SCH (09:12)
[2021-04-27] MEDS ORDERED: ISOVUE-300 61% 50ML VIAL As Ordered ONE (09:21)
[2021-04-27] MEDS ORDERED: LIDOCAINE 1% MDV 20ML VIAL As Ordered ONE (09:21)
--- NOTE | 2021-04-27 09:42 | CR.PDOC ---
General Date of Consultation: Apr 27, 2021 (Patient seen at 8.45 am) Referring Provider: ROSLYN MULLEN MD Attending Physician: Elvira West MD Consultation REASON FOR CONSULTATION/CHIEF COMPLAINT: Left lower extremity acute DVT, in a patient with contraindication for anticoagulation, and hence need for inferior vena cava filter placement HISTORY OF PRESENT ILLNESS: Edson Gonzalez is a 70yo M with past medical history of hypertension, rheumatic fever since age 11, history of mitral valve replacement, with metastatic colon cancer, who was referred from the oncology treatment center yesterday, to the emergency room, for evaluation of worsening left lower extremity swelling. The patient was on Coumadin, for A. fib and prosthetic mitral valve, which was discontinued about a month ago, as he developed severe rectal bleeding. Since then the patient noted swelling of the left leg from the knee down. However he also developed pain, since the past few days, which was not very severe. This was noted by the oncology center, where he was being treated yesterday, and hence they referred him to the emergency room, for further evaluation for venous thromboembolism. Duplex ultrasound of the lower extremities on 04/26/2021: Revealed acute left posterior tibial vein DVT, involving the entire vein. CTA chest -negative PE, liver masses, lung nodules, + cardiomegaly and trace pleural effusions as well as possible pulmonary artery hypertension. The peroneal vein could not be well visualized. The patient has some baseline dyspnea on exertion due to his chronic cardiac condition and CHF, and uses oxygen intermittently as needed. He did not have any new onset chest pain, or worsening dyspnea or orthopnea. He was placed on intravenous heparin, with serial monitoring of hematocrits, and stool for occult blood, till the filter is placed. The patient has been hemodynamically stable, no evidence of GI bleeding, and stable hematocrits since last night. His heparin drip was held to the morning, for high PTT of more than 200 seconds. Relevant history has been obtained from the patient and from his medical records. His other significant past medical history include CHF, BPH, hy percholesterolemia, gout, metastatic colon cancer and as needed home oxygen 2 L use Patient is alert and oriented x3 He also has left knee chronic pain and walks with a cane. Relevant past medical, surgical, social and family history's were reviewed and are as mentioned below. ALLERGIES: Please see below. HOME MEDICATIONS: Please see below. PAST MEDICAL HISTORY: Hypertension, rheumatic fever age 11, A. fib, CHF, BPH, hypercholesterolemia, gout, metastatic colon cancer and as needed home oxygen 2 L use PAST SURGICAL HISTORY: 1. Cholecystectomy 2. Mitral valve replacement-required median sternotomy twice FAMILY HISTORY: Lung cancerbrother, fatherlung and brain cancer, motherleukemia SOCIAL HISTORY: He lives alone and is independent of daily activities of life, with some assist ance. His brother lives next door, and is actively involved in his care. Never smoked. No alcohol abuse. Not . Does not have children. Never employed due to his cardiac condition REVIEW OF SYSTEMS: CONSTITUTIONAL: Generalized weakness and deconditioning CARDIOVASCULAR: Atrial fibrillation, dyspnea on exertion. RESPIRATORY: Dyspnea on exertion. MUSCULOSKELETAL: Swelling of the left leg GASTROINTESTINAL: No nausea or vomiting. No active GI bleed SKIN: No bruising NEUROLOGICAL: No history of TIAs or stroke PSYCHIATRIC: No depression. HEMATOLOGIC/LYMPHATIC: No platelet count and leukocytosis Review of all other systems is otherwise negative to the best of my knowledge. PHYSICAL EXAMINATION: VITAL SIGNS: Please see below. GENERAL APPEARANCE: Medium built gentleman, not in acute distress. He is awake alert and appropriately responsive. He is on 2 L of oxygen through the nasal cannula. HEENT: Normocephalic, no facial asymmetry. Pallor present, no icterus. RESPIRATORY: Bilateral equal air entry, decreased at the bases, with intermittent crackles and rhonchi at the bases CARDIOVASCULAR: Irregular rhythm, normal rate, median sternotomy scar, no murmurs. Right radial pulse not palpable. Right hand is warm and adequately perfused. Left radial +2 palpable. Bilateral femoral and dorsalis pedis pulses are +2 palpable. ABDOMEN: Mildly obese, soft, nontender EXTREMITIES: Left leg swollen, from the knee distally including the foot, compared to the right leg. No swelling of the left thigh. No erythema or calf tenderness. The calf is soft and not tense NEUROLOGICAL: Grossly nonfocal exam PSYCHIATRIC: Cooperative, normal mood and affect LABORATORY DATA: All relevant labs, including imaging were personally reviewed by me ASSESSMENT/PLAN: 1. Acute left posterior tibial vein DVT, in a patient with metastatic colon cancer, and history of GI bleed on anticoagulation. Plan for IVC filter placement today. Suggest JANY stockings and subcutaneous heparin Plan discussed, with the patient, his brother and as well as with the hospitalist team 2. Metastatic colon cancer: Being managed by heme-onc and radiation oncology. Vital Signs/I&O Vital Signs Date Time Temp Pulse Resp B/P (MAP) Pulse Ox O2 Delivery O2 Flow Rate FiO2 04/27/21 09:12 88 04/27/21 09:07 121/77 04/27/21 07:49 91 Nasal Cannula 2.0 04/27/21 06:00 97.8 22 I&O- Last 24 Hours up to 6 AM 04/27/21 06:00 Intake Total 316 ml Balance 316 ml Laboratory Data Labs 24H Laboratory Tests 2 04/26/21 17:42: Neutrophils (%) (Auto) , Nucleated Red Blood Cells % (auto) 0.1H, Neutrophils 40, Lymphocytes (Manual) 53H, Monocytes (Manual) 4, Eosinophils (Manual) 3, Anisocytosis 2+, Macrocytosis 2+, Smudge Cells 3+, Platelet Estimate DECREASED, Immature Platelet Fraction 7.5, Prothrombin Time 15.3H, Prothromb Time International Ratio 1.17, Activated Partial Thromboplast Time 74.0H, Anion Gap 6L, Glomerular Filtration Rate > 60.0, Calcium Level 8.7L, Total Bilirubin 1.1H, Direct Bilirubin 0.5H, Aspartate Amino Transf (AST/SGOT) 42H, Alanine Aminotransferase (ALT/SGPT) 37, Alkaline Phosphatase 159H, Total Creatine Kinase 121, Creatine Kinase MB 4.4H, Creatine Kinase MB Relative Index 3.64, Troponin I 0.10, NZ-Ppq-L-Type Natriuretic Peptide 6273H, Total Protein 6.5, Albumin 3.3, Albumin/Globulin Ratio 1.0, Lipase 229, Thyroid Stimulating Hormone (TSH) 1.740, Digoxin Level 1.6 04/26/21 17:57: POC Glucose (Misc Panel) 112H, POC Sodium (Misc Panel) 139, POC Potassium (Misc Panel) 4.1, POC Chloride (Misc Panel) 101, POC Total CO2 (Misc Panel) 26.0, POC Blood Urea Nitrogen (Misc Panel 27H, POC Ionized Calcium (Misc Panel) 4.7, POC Creatinine (Misc Panel) 1.0, POC Hematocrit (Misc Panel) 31.0L 04/26/21 22:24: Activated Partial Thromboplast Time 74.9H 04/27/21 05:31: Neutrophils (%) (Auto) , Nucleated Red Blood Cells % (auto) 0.0, Neutrophils 58, Lymphocytes (Manual) 35, Monocytes (Manual) 1, Eosinophils (Manual) 2, Anisocytosis 1+, Macrocytosis 2+, Platelet Estimate DECREASED, Activated Partial Thromboplast Time > 240.0*H, Anion Gap 5L, Glomerular Filtration Rate > 60.0, Calcium Level 8.6L, Band Neutrophils 1, Atypical Lymphocytes 3 04/27/21 08:37: CBC/BMP Laboratory Tests 04/26/21 17:42 04/27/21 05:31 Microbiology Microbiology 04/27/21 Stool Occult Blood ([facility]) - Final, Complete 04/26/21 Respiratory Virus Panel (PCR) ([facility]) - Final, Complete Allergies Coded Allergies: No Known Allergies (Verified , 07/14/18) Home Medications Scheduled Amlodipine Besylate (Amlodipine Besylate) 2.5 Mg Tablet, 2.5 MG PO DAILY, (Reported) Ascorbic Acid (Vitamin C) 500 Mg Tab, 1,000 MG PO DAILY, (Reported) Capecitabine (Capecitabine) 500 Mg Tablet, 2,000 MG PO BID for 14 Days, #84 4 tabs PO twice daily x 14 day then 7 days off DX Code C18.9 Digoxin (Digoxin) 250 Mcg Tablet, 250 MCG PO DAILY, (Reported) Docusate Sodium (Colace) 100 Mg Capsule, 100 MG PO BID, (Reported) Furosemide (Furosemide) 40 Mg Tablet, 60 MG PO DAILY, (Reported) Metoprolol Tartrate (Metoprolol Tartrate) 50 Mg Tab, 50 MG PO BID, (Reported) Multivitamins (Thera M Plus Tablet) 1 Tab Tab, 1 TAB PO DAILY, (Reported) Ondansetron HCl (Ondansetron HCl) 8 Mg Tablet, 8 MG PO TID for nausea/vomiting for 10 Days, #30 Phenobarbital (Phenobarbital) 32.4 Mg Tab, 64.8 MG PO BID, (Reported) Phenytoin Sodium Extended (Dilantin) 100 Mg Cap, 100 MG PO TID, (Reported) Potassium Chloride (Klor-Con M20) 20 Meq Tabcr, 20 MEQ PO DAILY, (Reported) Prochlorperazine Maleate (Prochlorperazine Maleate) 10 Mg Tablet, 10 MG PO Q6H for 15 Days, #60 Elvira West MD Apr 27, 2021 09:42
[2021-04-27] MEDS ORDERED: ceFAZolin 2 GM/D5W 50 ML IV BAG (J0690 PER 500MG) As Ordered ONE (10:02)
[2021-04-27] MEDS ORDERED: ceFAZolin SOD 2 GM in IV 1 EA IV ONE (10:30)
--- NOTE | 2021-04-27 11:20 | ROOPDOC ---
[facility] Report Of Operation Report of Operation DATE OF PROCEDURE: 04/27/21 PREPROCEDURE DIAGNOSES: Left leg DVT, with contraindication for anticoagulation (rectal bleed on anticoagulation) POSTPROCEDURE DIAGNOSES: Left leg DVT, with contraindication for anticoagulation (rectal bleed on anticoagulation) PROCEDURE PERFORMED:Inferior Vena Cava filter insertion. Argon Option elite - femoral approach, US guided access, and under fluoroscopy. SURGEON: Elvira West MD SURVEY PROJECT MANAGER: None ANESTHESIA: Local ESTIMATED BLOOD LOSS: Approximately 1 mL. COMPLICATIONS: None FINDINGS:Patent IVC SPECIMENS REMOVED: None PROCEDURE NOTE: Indication for the procedure: The patient is a 70-year-old male, with metastatic colo rectal cancer, who developed left posterior tibial vein acute DVT. The patient was on Coumadin until a month ago, for prosthetic mitral valve and atrial fibrillation, that was discontinued, due to significant rectal bleeding. Hence the current procedure is being performed. Informed consent was obtained from the patient, for the procedure, after explaining the risk benefits and complications of the procedure, which include but are not limited to bleeding, infection, cardiorespiratory complications, felt related complications including migration, thrombosis, penetration of abdominal organs, filter fractures, recurrent DVT and pulmonary embolism, contrast-induced nephropathy etc. Discussed also with his brother Kevin over the phone. DESCRIPTION OF PROCEDURE: The patient was placed supine on the angiogram table. Both groins were cleaned and draped in a sterile fashion. He received 2 g Ancef intravenously as preoperative antibiotic prophylaxis. A timeout was performed. After administering local anesthesia with 1% lidocaine, and ultrasound guidance, the left common femoral vein was accessed, using a micropuncture kit and a 4 Armenian micro sheath was placed. This was exchanged to a 6 Armenian (OD)75 cm sheath, that is provided in the filter kit. The tip of the sheath was positioned, and the central left common iliac vein, and inferior venacavogram was performed. The vena cava was dilated, but was less than 32 mm in diameter. The level of the lowest/left renal vein, and the iliac vein confluence was noted. The sheath was then advanced, to the level of the left renal vein, and the filter was deployed, as per the winter sports manager's instructions, just below the level of the renal veins. Completion venogram revealed good positioning of the filter, with no significant tilting, and complete apposition of the filter limbs to the IVC wall. The sheath was removed and manual pressure was applied, to the vein access site, till hemostasis was achieved. The patient tolerated the procedure well. He was hemodynamically stable throughout. The procedure and findings were conveyed as a voicemail message, to his brother Kevin over the phone. Elvira West MD Apr 27, 2021 11:20
[2021-04-27] MEDS: NYSTATIN 100,000 UNITS/GM TOPICAL PWD 15 GM TOP SCH ×2 (12:11→21:04)
[2021-04-27 12:54] LABS: ABG BASE EXCESS 1.1 (-2.0-2.0); ABG HCO3 26.2 MEQ/L (22.0-26.0); ABG O2 SATURATION 96.9 % (95.0-99.0); ABG PARTIAL PRESSURE CO2 43.5 mmHg (35.0-45.0); ABG PARTIAL PRESSURE O2 93.6 mmHg (75.0-100.0); ABG STANDARD HCO3 25.4 MEQ/L (22.0-26.0); ABG TOTAL CO2 27.5 MEQ/L (23.0-31.0); ABG pH (ARTERIAL) 7.397 UNITS (7.350-7.450)
[2021-04-27 13:31] LABS: ALBUMIN 3.2 GM/DL (3.2-5.2); ALT/SGPT 37 U/L (12-78); BILIRUBIN,TOTAL 1.1 MG/DL (0.2-1.0); TOTAL PROTEIN 6.5 GM/DL (6.4-8.2); TROPONIN I 0.11 NG/ML (< 0.10)
--- NOTE | 2021-04-27 13:43 | IPNPDOC ---
Date Seen The patient was seen on 04/27/21. Progress Note SUBJECTIVE: Heparin drip was stopped by nursing, later confirmed that both radiation oncology and medical oncology did not wish to have him on anticoagulation due to high risk of bleeding. No signs or symptoms of bleeding on evaluation. I discussed the case with vascular surgery and the patient went down for IVC filter placement this morning. Procedure went well. Down during the procedure his respiratory rate increased into the low 40's. Upon return to the floor the patient improved to 20's on his home amount of oxygen. ABG was unremarkable. The patient denied any increased shortness of breath or feeling more labored than normal with breathing. I confirm with Dr. Sanders that this appears to be his baseline is believed this is secondary to his cancer burden of the lungs. The patient denies chest pain, increased redness of breath, fevers, chills, nausea, vomiting, lower groin pain. OBJECTIVE: VITAL SIGNS: Please see below PHYSICAL EXAMINATION: VS: Please see below CONSTITUTIONAL: lethargic male, in no acute distress, resting in bed, AAO x 3 EYES: PERRLA, EOM intact HENT, MOUTH: Normocephalic, atraumatic, moist mucous membranes NECK: SUPPLE, no JVD, no lymphadenopathy, no carotid bruit CV: Regular rate and rhythm, S1S2 normal, no murmurs/rubs/gallops RESPIRATORY: Clear to auscultation bilaterally, no rales/rhonchi/wheezes GI: BS positive in 4 quadrants, soft, nontender, nondistended, no rebound or guarding, no organomegaly. LLgroin has bandage. : Deferred MUSCULOSKELETAL: Normal ROM. No cyanosis, clubbing, swelling, joint deformity, LLE swelling > RLE INTEGUMENTARY: Intact, no rashes, no lesions, no erythema NEUROLOGIC: Cranial Nerves II-XII are intact, no focal deficits PSYCHIATRIC: Mood and affect are normal CURRENT MEDICATIONS: Please see below LABORATORY DATA: Please see below IMAGING: See chart ASSESSMENT: 70-year-old male with metastatic colon cancer admitted for further treatment of left lower extremity DVT. PLAN: #Left lower extremity DVT likely secondary to malignancy, provoked -Left lower extremity greater than right lower extremity, not on anticoagulation at home Per medical and radiation oncology risk of bleeding is high with heparin, this was as a result drip was stopped. PTT was high previously. I nursing anyway early this morning. -Vascular surgery placed IVC filter this a.m., follow-up official consult and operation note. -Avoiding anticoagulation -Will need PT/OT to assess #HFpEF with acute exacerbation, pleural effusions with cardiomegaly -Patient with rheumatoid heart disease s/p MVR: Last echo from 2014 LVEF 75%. -BNP to over 6000 from 3000 03/2021 -Monitor fluid balance, I's and O's, urinary output, weigh daily -labs daily, ECHOCARDIOGRAM ordered -Encourage patient to follow-up with [employer] sales representative Dr. Diggs for outpatient echo; should patient show signs of acute exacerbation obtain echo #A. fib -Currently rate controlled Monitor patient on telemetry -continue metoprolol, digoxin #Malignant neoplasm of colon -Patient diagnosed in February 2021 after undergoing colonoscopy due to having black stools/rectal bleeding noted around 16 March. The colonoscopy revealed rectosigmoid colon malignant tumor adenocarcinoma. CT abdomen pelvis also showing metastases to liver and lung; patient to undergo liver biopsy to determine stage IV of the disease per oncology Dr. Schmidt. -Patient is currently taking Xeloda and has been off blood thinners x1 month with plan for biopsy on Thursday. -Patient under Dr. Sanders management for radiation treatments -Monitor patient, continue home medications; patient to bring own medicine Xeloda. -Dr. Schmidt notified during admission #Leukocytosis: In setting of presumed metastatic cancer. -Patient WBCs remain elevated. -Afebrile, normotensive and not tachycardic. -Continue to monitor for any signs or symptoms of infection #Thrombocytopenia 2/2 to malignancy -CBC -Not on AC #Transaminitis likely 2/2 to liver metastasis -F/u labs. #HTN -Stable -Continue home medications Norvasc, metoprolol #Seizure disorder: -Seizure precautions Continue phenobarbital and Dilantin #Groin excoriation -Nystatin twice daily DVT prophylaxis -No AC, teds or SCD 2/2 to risk of bleeding and DVT. DISPOSITION: Acute inpatient. PT/OT. VS, I&O, 24H, Fishbone Vital Signs/I&O Vital Signs Date Time Temp Pulse Resp B/P (MAP) Pulse Ox O2 Delivery O2 Flow Rate FiO2 04/27/21 12:45 97.9 76 22 138/63 (88) 93 Nasal Cannula 2.0 I&O- Last 24 Hours up to 6 AM 04/27/21 06:00 Intake Total 316 ml Balance 316 ml Laboratory Data 24H LABS Laboratory Tests 2 04/26/21 17:42: Neutrophils (%) (Auto) , Nucleated Red Blood Cells % (auto) 0.1H, Neutrophils 40, Lymphocytes (Manual) 53H, Monocytes (Manual) 4, Eosinophils (Manual) 3, Anisocytosis 2+, Macrocytosis 2+, Smudge Cells 3+, Platelet Estimate DECREASED, Immature Platelet Fraction 7.5, Prothrombin Time 15.3H, Prothromb Time International Ratio 1.17, Activated Partial Thromboplast Time 74.0H, Anion Gap 6L, Glomerular Filtration Rate > 60.0, Calcium Level 8.7L, Total Bilirubin 1.1H, Direct Bilirubin 0.5H, Aspartate Amino Transf (AST/SGOT) 42H, Alanine Amino transferase (ALT/SGPT) 37, Alkaline Phosphatase 159H, Total Creatine Kinase 121, Creatine Kinase MB 4.4H, Creatine Kinase MB Relative Index 3.64, Troponin I 0.10, MC-Jyy-P-Type Natriuretic Peptide 6273H, Total Protein 6.5, Albumin 3.3, Albumin/Globulin Ratio 1.0, Lipase 229, Thyroid Stimulating Hormone (TSH) 1.740, Digoxin Level 1.6 04/26/21 17:57: POC Glucose (Misc Panel) 112H, POC Sodium (Misc Panel) 139, POC Potassium (Misc Panel) 4.1, POC Chloride (Misc Panel) 101, POC Total CO2 (Misc Panel) 26.0, POC Blood Urea Nitrogen (Misc Panel 27H, POC Ionized Calcium (Misc Panel) 4.7, POC Creatinine (Misc Panel) 1.0, POC Hematocrit (Misc Panel) 31.0L 04/26/21 22:24: Activated Partial Thromboplast Time 74.9H 04/27/21 05:31: Neutrophils (%) (Auto) , Nucleated Red Blood Cells % (auto) 0.0, Neutrophils 58, Lymphocytes (Manual) 35, Monocytes (Manual) 1, Eosinophils (Manual) 2, Anisocytosis 1+, Macrocytosis 2+, Platelet Estimate DECREASED, Activated Partial Thromboplast Time > 240.0*H, Anion Gap 5L, Glomerular Filtration Rate > 60.0, Calcium Level 8.6L, Band Neutrophils 1, Atypical Lymphocytes 3 04/27/21 08:37: Activated Partial Thromboplast Time 141.1*H 04/27/21 12:46: Blood Gas Bicarbonate Standard 25.4, Arterial Blood pH 7.397, Arterial Blood Partial Pressure CO2 43.5, Arterial Blood Partial Pressure O2 93.6, Arterial Blood Total CO2 27.5, Arterial Blood HCO3 26.2H, Arterial Blood Base Excess 1.1, Arterial Blood Oxygen Saturation 96.9 CBC/BMP Laboratory Tests 04/26/21 17:42 04/27/21 05:31 Microbiology Microbiology 04/27/21 Stool Occult Blood ([facility]) - Final, Complete 04/26/21 Respiratory Virus Panel (PCR) ([facility]) - Final, Complete Manju Jj MD Apr 27, 2021 13:43
[2021-04-27] MEDS ORDERED: HEPARIN SOD (PORCINE) 5000UNITS/ML 1ML VIAL/SYRINGE SQ SCH (21:00)
[2021-04-27] MEDS: CAPECITABINE 500 MG PO SCH (21:05)
[2021-04-28] MEDS: PROCHLORPERAZINE 5 MG TAB (S0183) PO SCH ×5 (05:08→23:00)
[2021-04-28 06:00] VITALS: BP 138/88
[2021-04-28 06:03] LABS: HEMATOCRIT 31.9 % (42.0-52.0); HEMOGLOBIN 10.1 g/dl (13.5-17.5); MEAN CORPUSCULAR HEMOGLOBIN 33.4 pg (27.0-33.0); MEAN CORPUSCULAR HGB CONC 31.7 g/dl (32.0-36.5); MEAN CORPUSCULAR VOLUME 105.6 fl (80.0-96.0); RED BLOOD COUNT 3.02 10^6/uL (4.30-6.10); WHITE BLOOD COUNT 20.2 10^3/uL (4.0-10.0)
[2021-04-28 06:11] LABS: PLATELET COUNT, AUTOMATED 67 10^3/uL (150-450)
[2021-04-28 06:22] LABS: BLOOD UREA NITROGEN 30 MG/DL (7-18); CARBON DIOXIDE LEVEL 30 MEQ/L (21-32); CHLORIDE LEVEL 106 MEQ/L (98-107); CREATININE FOR GFR 1.06 MG/DL (0.70-1.30); GLOMERULAR FILTRATION RATE > 60.0 (>42); GLUCOSE, FASTING 85 MG/DL (70-100); SODIUM LEVEL 142 MEQ/L (136-145)
[2021-04-28] MEDS: ACETAMINOPHEN TAB 650MG DOSE (2X325MG) PO PRN ×2 (06:29→21:47)
[2021-04-28 08:04] LABS: ANISOCYTOSIS 1+; EOSINOPHILS 1 % (0-3); LYMPHOCYTES 33 % (16-44); MONOCYTES 7 % (0-5); NEUTROPHILS 58 % (28-66); PLATELET ESTIMATE DECREASED (NORMAL)
[2021-04-28 08:05] LABS: HYPOCHROMASIA 1+
[2021-04-28] MEDS: NYSTATIN 100,000 UNITS/GM TOPICAL PWD 15 GM TOP SCH ×2 (09:58→21:00)
[2021-04-28] MEDS: PHENYTOIN ER 100 MG CAP PO SCH ×3 (09:59→21:44)
[2021-04-28] MEDS: FUROSEMIDE 100MG/10ML VIAL (J1940) IV SCH ×2 (09:59→17:18)
[2021-04-28] MEDS: DOCUSATE SODIUM 100MG CAPSULE PO SCH ×2 (10:00→21:00)
[2021-04-28] MEDS: PHENobarbitaL 30 MG TAB PO SCH ×2 (10:01→21:44)
[2021-04-28] MEDS: ASCORBIC ACID 500 MG TAB PO SCH (10:01)
[2021-04-28] MEDS: MULTIVITAMINS/MINERALS THERAP 1 TAB PO SCH (10:02)
[2021-04-28] MEDS: DIGOXIN 0.25 MG TAB PO SCH (10:03)
[2021-04-28] MEDS: METOPROLOL TART 50 MG TAB PO SCH ×2 (10:04→21:44)
[2021-04-28] MEDS: CAPECITABINE 500 MG PO SCH ×2 (10:06→21:45)
[2021-04-28 14:00] VITALS: BP 133/66
--- NOTE | 2021-04-28 18:05 | IPNPDOC ---
Date Seen The patient was seen on 04/28/21. Progress Note SUBJECTIVE: No events overnight, no bleeding. Not diuresing well so increased lasix to BID. The patient denies chest pain, increased redness of breath, fevers, chills, nausea, vomiting, lower groin pain. OBJECTIVE: VITAL SIGNS: Please see below PHYSICAL EXAMINATION: VS: Please see below CONSTITUTIONAL: NAD, resting in bed, AAO x 3 EYES: PERRLA, EOM intact HENT, MOUTH: Normocephalic, atraumatic, moist mucous membranes, NC in place NECK: SUPPLE, no JVD, no lymphadenopathy, no carotid bruit CV: Regular rate and rhythm, S1S2 normal, no murmurs/rubs/gallops RESPIRATORY: Mild rhonchi with crackles in lower lungs posteriorly. No rales/wheezes GI: BS positive in 4 quadrants, soft, nontender, nondistended, no rebound or guarding, no organomegaly. LLgroin has bandage. : Deferred MUSCULOSKELETAL: Normal ROM. No cyanosis, clubbing, swelling, joint deformity, LLE swelling > RLE INTEGUMENTARY: Intact, no rashes, no lesions, no erythema NEUROLOGIC: Cranial Nerves II-XII are intact, no focal deficits PSYCHIATRIC: Mood and affect are normal CURRENT MEDICATIONS: Please see below LABORATORY DATA: Please see below IMAGING: See chart ASSESSMENT: 70-year-old male with metastatic colon cancer admitted for further treatment of left lower extremity DVT. PLAN: #HFpEF with acute exacerbation, pleural effusions with cardiomegaly -Patient with rheumatoid heart disease s/p MVR: Last echo from 2014 LVEF 75%. -Not diuresing well on daily dose lasix -BNP to over 6000 from 3000 03/2021. F/u repeat in the AM -Monitor fluid balance, I's and O's, urinary output, weigh daily -labs daily, ECHOCARDIOGRAM ordered for 04/29/21 -Lasix increased to BID #Left lower extremity DVT likely secondary to malignancy, provoked -POD Day 1 for IVC filter placement, see operative note by vascular surgery -No pain in groin, s/s of bleeding -Left lower extremity greater than right lower extremity, not on anticoagulation at home -Avoiding anticoagulation -Did well with PT/OT, no needs #A. fib -Currently rate controlled Monitor patient on telemetry -continue metoprolol, digoxin #Malignant neoplasm of colon -Patient diagnosed in February 2021 after undergoing colonoscopy due to having black stools/rectal bleeding noted around 16 March. The colonoscopy revealed rectosigmoid colon malignant tumor adenocarcinoma. CT abdomen pelvis also showing metastases to liver and lung; patient to undergo liver biopsy to determine stage IV of the disease per oncology Dr. Schmidt. -Patient is currently taking Xeloda and has been off blood thinners x1 month with plan for biopsy on 04/29/21. -Patient under Dr. Sanders management for radiation treatments -Monitor patient, continue home medications; patient to bring own medicine Xeloda. -Dr. Schmidt notified during admission -Will tb with Dr. Schmidt to see if this will be done inpatient. #Leukocytosis: In setting of presumed metastatic cancer. -Patient WBCs remain elevated but slightly improved -Afebrile, normotensive and not tachycardic. -Continue to monitor for any signs or symptoms of infection #Thrombocytopenia 2/2 to malignancy -Slightly worsened, has been down trending for some time -CBC daily -Not on AC #Transaminitis likely 2/2 to liver metastasis -labs daily #HTN -Stable -Continue home medications Norvasc, metoprolol #Seizure disorder -Seizure precautions Continue phenobarbital and Dilantin #Groin excoriation -Nystatin twice daily DVT prophylaxis -No AC, teds or SCD 2/2 to risk of bleeding and DVT. DISPOSITION: Acute inpatient. PT/OT. Will tb with providers to see if liver bx to take place as inpatient or arrange as o/p after d/c. VS, I&O, 24H, [facility] Vital Signs/I&O Vital Signs Date Time Temp Pulse Resp B/P (MAP) Pulse Ox O2 Delivery O2 Flow Rate FiO2 04/28/21 14:00 97.3 100 22 133/66 (88) 97 Nasal Cannula 2.0 I&O- Last 24 Hours up to 6 AM 04/28/21 06:00 Intake Total 1260 ml Output Total 1175 ml Balance 85 ml Laboratory Data 24H LABS Laboratory Tests 2 04/28/21 05:30: Neutrophils (%) (Auto) , Nucleated Red Blood Cells % (auto) 0.5H, Neutrophils 58, Band Neutrophils 1, Lymphocytes (Manual) 33, Monocytes (Manual) 7H, Eosinophils (Manual) 1, Hypochromasia 1+, Anisocytosis 1+, Macrocytosis 2+, Platelet Estimate DECREASED, Immature Platelet Fraction 8.3, Anion Gap 6L, Glomerular Filtration Rate > 60.0, Calcium Level 8.0L CBC/BMP Laboratory Tests 04/28/21 05:30 Microbiology Microbiology 04/27/21 Stool Occult Blood ([facility]) - Final, Complete 04/26/21 Respiratory Virus Panel (PCR) ([facility]) - Final, Complete Manju Jj MD Apr 28, 2021 18:05
[2021-04-28 18:19] LABS: TROPONIN I 0.11 NG/ML (< 0.10)
[2021-04-28 22:00] VITALS: BP 129/65
[2021-04-29] MEDS: PROCHLORPERAZINE 5 MG TAB (S0183) PO SCH ×3 (05:11→17:10)
[2021-04-29 06:00] VITALS: BP 127/65
[2021-04-29 06:18] LABS: BASO % 0.3 % (0.0-1.0); EOS # 0.4 10^3/uL (0.0-0.5); EOS % 2.4 % (0.0-3.0); HEMATOCRIT 29.8 % (42.0-52.0); HEMOGLOBIN 9.7 g/dl (13.5-17.5); LYMPH # 8.6 10^3/uL (1.5-5.0); LYMPH % 57.8 % (24.0-44.0); MEAN CORPUSCULAR HEMOGLOBIN 34.4 pg (27.0-33.0); MEAN CORPUSCULAR HGB CONC 32.6 g/dl (32.0-36.5); MEAN CORPUSCULAR VOLUME 105.7 fl (80.0-96.0); MONO # 0.8 10^3/uL (0.0-0.8); MONO % 5.1 % (2.0-8.0); NEUTROPHILS # 5.1 10^3/uL (1.5-8.5); NEUTROPHILS % 33.9 % (36.0-66.0); RED BLOOD COUNT 2.82 10^6/uL (4.30-6.10); WHITE BLOOD COUNT 14.9 10^3/uL (4.0-10.0)
[2021-04-29 06:29] LABS: PLATELET COUNT, AUTOMATED 58 10^3/uL (150-450)
[2021-04-29 06:41] LABS: BLOOD UREA NITROGEN 34 MG/DL (7-18); CALCIUM LEVEL 8.4 MG/DL (8.8-10.2); CARBON DIOXIDE LEVEL 30 MEQ/L (21-32); CHLORIDE LEVEL 108 MEQ/L (98-107); CREATININE FOR GFR 1.01 MG/DL (0.70-1.30); GLOMERULAR FILTRATION RATE > 60.0 (>42); GLUCOSE, FASTING 84 MG/DL (70-100); NT-PRO BNP 5557 PG/ML (<125); POTASSIUM SERUM 4.2 MEQ/L (3.5-5.1); SODIUM LEVEL 142 MEQ/L (136-145); TROPONIN I 0.07 NG/ML (< 0.10)
[2021-04-29] MEDS: CAPECITABINE 500 MG PO SCH ×2 (09:00→21:00)
[2021-04-29] MEDS: NYSTATIN 100,000 UNITS/GM TOPICAL PWD 15 GM TOP SCH ×2 (09:00→21:02)
[2021-04-29] MEDS: FUROSEMIDE 100MG/10ML VIAL (J1940) IV SCH (09:20)
[2021-04-29] MEDS: PHENobarbitaL 30 MG TAB PO SCH ×2 (10:16→21:00)
[2021-04-29] MEDS: MULTIVITAMINS/MINERALS THERAP 1 TAB PO SCH (10:18)
[2021-04-29] MEDS: PHENYTOIN ER 100 MG CAP PO SCH ×3 (10:18→21:01)
[2021-04-29] MEDS: ASCORBIC ACID 500 MG TAB PO SCH (10:18)
[2021-04-29] MEDS: DIGOXIN 0.25 MG TAB PO SCH (10:19)
[2021-04-29] MEDS: DOCUSATE SODIUM 100MG CAPSULE PO SCH ×2 (10:19→21:01)
[2021-04-29] MEDS: METOPROLOL TART 50 MG TAB PO SCH ×2 (10:20→21:01)
[2021-04-29] MEDS: TORSEMIDE 20 MG TAB PO SCH ×2 (11:54→16:11)
[2021-04-29 14:00] VITALS: BP 131/64
[2021-04-29] MEDS ORDERED: TORSEMIDE (DEMADEX) 50 MG PER 1/2 TAB PO SCH (17:00)
--- NOTE | 2021-04-29 19:42 | IPNPDOC ---
Date Seen The patient was seen on 04/29/21. Progress Note SUBJECTIVE: No events overnight, no bleeding. Not diuresing well , changed to torsemide twice a day per cardiology (Dr. Diggs). Cardiology recommending to continue to diurese. The patient denies chest pain, increased redness of breath, fevers, chills, nausea, vomiting, lower groin pain. OBJECTIVE: VITAL SIGNS: Please see below PHYSICAL EXAMINATION: VS: Please see below CONSTITUTIONAL: NAD, resting in bed, AAO x 3 EYES: PERRLA, EOM intact HENT, MOUTH: Normocephalic, atraumatic, moist mucous membranes, NC in place NECK: SUPPLE, no JVD, no lymphadenopathy, no carotid bruit CV: Regular rate and rhythm, S1S2 normal, no murmurs/rubs/gallops RESPIRATORY: Mild rhonchi with crackles in lower lungs posteriorly. No rales/wheezes GI: BS positive in 4 quadrants, soft, nontender, nondistended, no rebound or guarding, no organomegaly. LLgroin has bandage. : Deferred MUSCULOSKELETAL: Normal ROM. No cyanosis, clubbing, swelling, joint deformity, LLE swelling > RLE INTEGUMENTARY: Intact, no rashes, no lesions, no erythema NEUROLOGIC: Cranial Nerves II-XII are intact, no focal deficits PSYCHIATRIC: Mood and affect are normal CURRENT MEDICATIONS: Please see below LABORATORY DATA: Please see below IMAGING: See chart ASSESSMENT: 70-year-old male with metastatic colon cancer admitted for further treatment of left lower extremity DVT. PLAN: #HFpEF with acute exacerbation, pleural effusions with cardiomegaly -Patient with rheumatoid heart disease s/p MVR: Last echo from 2014 LVEF 75%. -BNP improving slowly but currently not in negative fluid balance, daily weight has not made much improvement -Lasix stopped, started on torsemide twice a day per cardiology recommendation today. Dr. Diggs would also like the patient discharged on this med instead of Lasix. Echocardiogram requested from cardiology office; however, Dr. Diggs did not recommend getting another one at this time. Stopped amlodipine because anticipating heavy diuresis with torsemide. Continue other cardiac meds -Monitor fluid balance, I's and O's, urinary output, weigh daily, labs daily #Left lower extremity DVT likely secondary to malignancy, provoked -POD Day 2 for IVC filter placement, see operative note by vascular surgery -No pain in groin, s/s of bleeding -Left lower extremity greater than right lower extremity, not on anticoagulation at home -Avoiding anticoagulation -Did well with PT/OT, no needs #Thrombocytopenia 2/2 to malignancy, cancer therapy. -Slightly worsened, has been down trending for some time -Not on AC -Updated Dr. Schmidt on 04/29/2021 -CBC daily #A. fib -Currently rate controlled Monitor patient on telemetry -continue metoprolol, digoxin #Malignant neoplasm of colon -Patient diagnosed in February 2021 after undergoing colonoscopy due to having black stools/rectal bleeding noted around 16 March. The colonoscopy revealed rectosigmoid colon malignant tumor adenocarcinoma. CT abdomen pelvis also showing metastases to liver and lung; patient to undergo liver biopsy to determine stage IV of the disease per oncology Dr. Schmidt. -Patient is currently taking Xeloda and has been off blood thinners x1 month with plan for biopsy on 04/29/21- this was canceled today -Patient under Dr. Sanders management for radiation treatments -Monitor patient, continue home medications; patient to bring own medicine Xeloda. -Dr. Schmidt notified during admission. #Leukocytosis: In setting of presumed metastatic cancer. -Patient WBCs remain elevated but slightly improved -Afebrile, normotensive and not tachycardic. -Continue to monitor for any signs or symptoms of infection #Transaminitis likely 2/2 to liver metastasis -labs daily #HTN -Stable -Continue home medications Norvasc, metoprolol #Seizure disorder -Seizure precautions Continue phenobarbital and Dilantin #Groin excoriation -Nystatin twice daily DVT prophylaxis -No AC, teds or SCD 2/2 to risk of bleeding and DVT. DISPOSITION: Acute inpatient. PT/OT. Plan is discharge home when medically improved VS, I&O, 24H, Fishbone Vital Signs/I&O Vital Signs Date Time Temp Pulse Resp B/P (MAP) Pulse Ox O2 Delivery O2 Flow Rate FiO2 04/29/21 14:00 98.9 73 17 131/64 (86) 98 Nasal Cannula 2.0 I&O- Last 24 Hours up to 6 AM 04/29/21 06:00 Intake Total 1100 ml Output Total 1225 ml Balance -125 ml Laboratory Data 24H LABS Laboratory Tests 2 04/29/21 05:44: Immature Granulocyte % (Auto) 0.5, Neutrophils (%) (Auto) 33.9L, Lymphocytes (%) (Auto) 57.8H, Monocytes (%) (Auto) 5.1, Eosinophils (%) (Auto) 2.4, Basophils (%) (Auto) 0.3, Neutrophils # (Auto) 5.1, Lymphocytes # (Auto) 8.6H, Monocytes # (Auto) 0.8, Eosinophils # (Auto) 0.4, Basophils # (Auto) 0.0, Nucleated Red Blood Cells % (auto) 0.7H, Immature Platelet Fraction 7.3, Anion Gap 4L, Glomerular Filtration Rate > 60.0, Calcium Level 8.4L, Troponin I 0.07#, CA-Poy-N-Type Natriuretic Peptide 5557H CBC/BMP Laboratory Tests 04/29/21 05:44 Microbiology Microbiology 04/27/21 Stool Occult Blood ([facility]) - Final, Complete 04/26/21 Respiratory Virus Panel (PCR) ([facility]) - Final, Complete Manju Jj MD Apr 29, 2021 19:42
[2021-04-29 22:00] VITALS: BP 130/60
[2021-04-30] MEDS: PROCHLORPERAZINE 5 MG TAB (S0183) PO SCH ×3 (05:02→12:00)
[2021-04-30 06:00] VITALS: BP 151/85
--- NOTE | 2021-04-30 06:24 | ECGEPIP ---
[facility] - ED Test Date: 2021-04-26 Pat Name: SHAHEEN DAY Department: Room: [place] [address] Gender: Male Senior Caregiver: PHYLLIS : 1950 Requested By: ROSELIA BLAIR Order Number: [id number] Reading MD: Austin Carrillo Measurements Intervals [place] Rate: 105 P: GA: QRS: 39 QRSD: 74 T: -46 QT: 306 QTc: 404 Interpretive Statements Atrial fibrillation with rapid ventricular response Nonspecific ST and T wave abnormality Delayed R wave progression Nonspecific ST T wave changes vs ischemia - clinically correlate low voltage QRS limb leads cw 04/26/21 rate decreased less artifact Nonspecific ST T wave changes Electronically Signed on 04-30-2021 6:24:17 EST by Austin Carrillo
[2021-04-30] MEDS: ACETAMINOPHEN TAB 650MG DOSE (2X325MG) PO PRN (06:41)
[2021-04-30 06:55] VITALS: O2SAT 93
[2021-04-30 06:59] LABS: BLOOD UREA NITROGEN 32 MG/DL (7-18); CALCIUM LEVEL 8.1 MG/DL (8.8-10.2); CARBON DIOXIDE LEVEL 34 MEQ/L (21-32); CHLORIDE LEVEL 104 MEQ/L (98-107); CREATININE FOR GFR 1.04 MG/DL (0.70-1.30); GLOMERULAR FILTRATION RATE > 60.0 (>42); GLUCOSE, FASTING 91 MG/DL (70-100); POTASSIUM SERUM 3.6 MEQ/L (3.5-5.1); SODIUM LEVEL 145 MEQ/L (136-145)
[2021-04-30 08:27] LABS: HEMATOCRIT 28.8 % (42.0-52.0); HEMOGLOBIN 9.3 g/dl (13.5-17.5); MEAN CORPUSCULAR HEMOGLOBIN 33.9 pg (27.0-33.0); MEAN CORPUSCULAR HGB CONC 32.3 g/dl (32.0-36.5); MEAN CORPUSCULAR VOLUME 105.1 fl (80.0-96.0); PLATELET COUNT, AUTOMATED 60 10^3/uL (150-450); RED BLOOD COUNT 2.74 10^6/uL (4.30-6.10); WHITE BLOOD COUNT 15.9 10^3/uL (4.0-10.0)
[2021-04-30 08:30] LABS: ANISOCYTOSIS 1+; ATYPICAL LYMPH 1 % (0-5); EOSINOPHILS 2 % (0-3); LYMPHOCYTES 37 % (16-44); METAMYELOCYTES 1 % (0-0); MONOCYTES 3 % (0-5); NEUTROPHILS 56 % (28-66); PLATELET ESTIMATE MARKED DECREASE (NORMAL)
[2021-04-30 08:31] LABS: SMUDGE CELLS 2+
[2021-04-30] MEDS: CAPECITABINE 500 MG PO SCH (09:00)
[2021-04-30] MEDS: PHENYTOIN ER 100 MG CAP PO SCH ×2 (10:07→16:09)
[2021-04-30] MEDS: PHENobarbitaL 30 MG TAB PO SCH (10:08)
[2021-04-30] MEDS: DOCUSATE SODIUM 100MG CAPSULE PO SCH (10:08)
[2021-04-30] MEDS: MULTIVITAMINS/MINERALS THERAP 1 TAB PO SCH (10:08)
[2021-04-30] MEDS: ASCORBIC ACID 500 MG TAB PO SCH (10:09)
[2021-04-30 10:11] VITALS: BP 134/83
[2021-04-30] MEDS: METOPROLOL TART 50 MG TAB PO SCH (10:11)
[2021-04-30] MEDS: TORSEMIDE 20 MG TAB PO SCH ×2 (10:11→16:09)
[2021-04-30] MEDS: DIGOXIN 0.25 MG TAB PO SCH (10:12)
[2021-04-30] MEDS: NYSTATIN 100,000 UNITS/GM TOPICAL PWD 15 GM TOP SCH (10:12)
[2021-04-30] MEDS ORDERED: TORS20TA2 PO (12:41)
--- NOTE | 2021-04-30 13:00 | DS.PDOC ---
Discharge Summary General Date of Admission Apr 26, 2021 at 21:25 Date of Discharge 04/30/2021 Attending Physician: DONATO ALTAMIRANO MD Discharge Summary PROCEDURES PERFORMED DURING STAY: IVC filer placement on 04/[address] Johnson ADMITTING DIAGNOSES: LLE DVT DISCHARGE DIAGNOSES: LLE DVT Metastatic colon cancer As needed home oxygen 2 L? Chronic hypoxemic respiratory failure Hypertension Chronic A. fib HFpEF exacerbation BPH Hypercholesterolemia Gout COMPLICATIONS/CHIEF COMPLAINT: Left Leg Dvt. HISTORY OF PRESENT ILLNESS: 70yo M with past medical history of metastatic colon cancer and as needed home oxygen 2 L, hypertension, rheumatic fever age 11, A. fib, CHF, BPH, hypercholesterolemia, gout who presented with complaints of left lower extremity swelling/discomfort for 1 month and had progressively started to swell and had some redness to it and he underwent an ultrasound in the outpatient setting that showed a DVT left lower extremity. The patient has been off of his anticoagulation for anticipated liver biopsy due to metastatic colon cancer and he was therefore sent to the ED potential IVC filter and full VTE evaluation for potential PE. HOSPITAL COURSE: On presentation, he denied sob, palpitations, chest pain, n/v/d, abdominal pain, weakness, sensory changes or syncope. CTA chest was negative for a PE but did show cardiomegaly and trace pleural effusions as well as possible pulmonary artery hypertension. Oncology and vascular were contacted with recommendations for heparin drip and vascular consult for IVC filter placement. Initial lab work is revealing for leukocytosis however in setting of metastatic cancer this is not abnormal and on checking his longitudinal labs is chronic. He was afebrile, not tachycardic or tachypneic and normotensive. He was admitted for IVC filter placement i/s/o a DVT and for a HFpEF exacerbation. He was given IV lasix with good effect and on speaking with cardiology, the last hospitalist placed him on BID 40mg torsemide that was recommended to continue at discharge by cardiology per EMR notes. His volume status improved and pBNP also downtrended. He is now being discharged home with close PCP, oncology and cardiology follow up. DISCHARGE MEDICATIONS: Please see below. ALLERGIES: Please see below. PHYSICAL EXAMINATION ON DISCHARGE: VITAL SIGNS: Please see below. CONSTITUTIONAL: NAD, resting in bed, AAO x 3 EYES: PERRLA, EOM intact HENT, MOUTH: Normocephalic, atraumatic, moist mucous membranes, NC in place NECK: SUPPLE, no JVD, no lymphadenopathy, no carotid bruit CV: Regular rate and rhythm, S1S2 normal, no murmurs/rubs/gallops RESPIRATORY:Trace bibasilar crackles in lower lungs posteriorly. Otherwise clear, breathing comfortably on room air GI: BS positive in 4 quadrants, soft, nontender, nondistended, no rebound or guarding, no organomegaly. EXT: LLE swelling > RLE, WWP NEUROLOGIC: Cranial Nerves II-XII are intact, no focal deficits PSYCHIATRIC: Mood and affect are normal LABORATORY DATA: Please see below. IMAGING: Tubes, catheters and devices: Sternal wires. Pulmonary arteries: Pulmonary arteries enlarged measuring 4.5 cm. Clinical correlation with pulmonary arterial hypertension. Aorta: Ectatic ascending aorta measuring 4.5 cm. Lungs: Bilateral scattered nodules in the lungs with no significant change from prior study. Pleural spaces: Trace bilateral pleural effusions. Heart: Cardiomegaly. Lymph nodes: Unremarkable. No enlarged lymph nodes. Liver: 4.8 cm hypodense lesion in the right hepatic lobe likely metastatic. A 2nd hypodense lesion in the visualized right hepatic lobe measuring 1.8 cm. Bones/joints: Extensive degenerative changes of the spine. Soft tissues: Unremarkable. IMPRESSION: No pulmonary embolism. Ectatic ascending aorta measuring 4.5 cm. Pulmonary artery is enlarged measuring 4.5 cm. Clinical correlation with pulmonary arterial hypertension. Multiple scattered nodules in bilateral lungs representing metastatic disease. Trace bilateral pleural effusions. Severe cardiomegaly. PROGNOSIS: Fair, given metastatic disease ACTIVITY: As tolerated. DIET: 2g sodium DISCHARGE PLAN: Home with services, stop lasix, start torsemide 40 BID DISPOSITION: Home DISCHARGE INSTRUCTIONS: Home with services, stop lasix, start torsemide 40 BID ITEMS TO FOLLOWUP ON ON OUTPATIENT: DVT s/p IVC filter CHF, volume optimization Should be seen by PCP within the next 7d for BMP and digoxin level while on BID torsemide DISCHARGE CONDITION: Stable TIME SPENT ON DISCHARGE: 40 minutes. Vital Signs/I&Os Vital Signs Date Time Temp Pulse Resp B/P (MAP) Pulse Ox O2 Delivery O2 Flow Rate FiO2 04/30/21 10:12 84 04/30/21 10:11 134/83 04/30/21 06:55 93 Nasal Cannula 2.0 04/30/21 06:00 97.2 16 I&O- Last 24 Hours up to 6 AM 04/30/21 06:00 Intake Total 1470 ml Output Total 2500 ml Balance -1030 ml Laboratory Data Labs 24H Laboratory Tests 2 04/30/21 05:54: Neutrophils (%) (Auto) , Nucleated Red Blood Cells % (auto) 0.4H, Neutrophils 56, Lymphocytes (Manual) 37, Monocytes (Manual) 3, Eosinophils (Manual) 2, Metamyelocytes 1H, Atypical Lymphocytes 1, Anisocytosis 1+, Macrocytosis 2+, Smudge Cells 2+, Platelet Estimate MARKED DECREASE, Immature Platelet Fraction 5.6, Anion Gap 7L, Glomerular Filtration Rate > 60.0, Calcium Level 8.1L CBC/BMP Laboratory Tests 04/30/21 05:54 Microbiology Microbiology 04/27/21 Stool Occult Blood ([facility]) - Final, Complete 04/26/21 Respiratory Virus Panel (PCR) ([facility]) - Final, Complete Discharge Medications Scheduled Ascorbic Acid (Vitamin C) 500 Mg Tab, 1,000 MG PO DAILY, (Reported) Capecitabine (Capecitabine) 500 Mg Tablet, 2,000 MG PO BID 4 tabs PO twice daily x 14 day then 7 days off DX Code C18.9 Digoxin (Digoxin) 250 Mcg Tablet, 250 MCG PO DAILY, (Reported) Docusate Sodium (Colace) 100 Mg Capsule, 100 MG PO BID, (Reported) Metoprolol Tartrate (Metoprolol Tartrate) 50 Mg Tab, 50 MG PO BID, (Reported) Multivitamins (Thera M Plus Tablet) 1 Tab Tab, 1 TAB PO DAILY, (Reported) Ondansetron HCl (Ondansetron HCl) 8 Mg Tablet, 8 MG PO TID for nausea/vomiting Phenobarbital (Phenobarbital) 32.4 Mg Tab, 64.8 MG PO BID, (Reported) Phenytoin Sodium Extended (Dilantin) 100 Mg Cap, 100 MG PO TID, (Reported) Potassium Chloride (Klor-Con M20) 20 Meq Tabcr, 20 MEQ PO DAILY, (Reported) Prochlorperazine Maleate (Prochlorperazine Maleate) 10 Mg Tablet, 10 MG PO Q6H Torsemide (Torsemide) 20 Mg Tablet, 40 MG PO BID@09,17 Allergies Coded Allergies: No Known Allergies (Verified , 07/14/18) DONATO ALTAMIRANO MD Apr 30, 2021 13:00
[2021-04-30 14:00] VITALS: BP 161/85
== END 2021-04-30 16:39 | disposition home health service (06) | DRG 299 ==
LOC: M ED 16:30 → M ED INP 21:25 → ENRESERVDT 04-27 00:27 → ENRESERVTM 04-27 00:27 → M MSPAV 04-27 02:35
PROVIDERS: ADMIT Family Medicine; ATTEND Internal Medicine
PROC: 06H03DZ Insertion of Intraluminal Device into Inferior Vena Cava, Percutaneous Approach (ICD-10-PCS; principal; 2021-04-27 09:26)
DX: I82.442 Acute embolism and thrombosis of left tibial vein (principal); I50.33 Acute on chronic diastolic (congestive) heart failure; C19 Malignant neoplasm of rectosigmoid junction; C78.7 Secondary malignant neoplasm of liver and intrahepatic bile duct; J96.11 Chronic respiratory failure with hypoxia; C78.01 Secondary malignant neoplasm of right lung; C78.02 Secondary malignant neoplasm of left lung; I11.0 Hypertensive heart disease with heart failure; I48.91 Unspecified atrial fibrillation; N40.0 Benign prostatic hyperplasia without lower urinary tract symptoms; E78.00 Pure hypercholesterolemia, unspecified; M10.9 Gout, unspecified; Z90.49 Acquired absence of other specified parts of digestive tract; Z95.2 Presence of prosthetic heart valve; D69.6 Thrombocytopenia, unspecified; R74.01 Elevation of levels of liver transaminase levels; G40.909 Epilepsy, unspecified, not intractable, without status epilepticus; Z79.899 Other long term (current) drug therapy; Z99.81 Dependence on supplemental oxygen

== ENCOUNTER → 2021-04-26 | Outpatient (CLI) | payer MEDICARE, MEDICAID ==
[~2021-04-26] MED LIST changes: -AMLO2.5T3; +AMLO2.5T3 PO; +DIGO0.253 PO; -FURO40TA2
--- NOTE | 2021-04-26 16:38 | REP ---
INDICATION: LT LEG SWELLING. COMPARISON: None TECHNIQUE: Multiple ultrasonographic images of the deep venous structures of the left thigh were obtained from the level of the common femoral vein to the popliteal vein in the longitudinal and transverse scan planes along with Doppler interrogation and color flow Doppler imaging. In addition scanning through the veins in the left calf was also performed where possible. FINDINGS: There is no abnormal echogenic material seen within any of the visualized deep venous structures of the left thigh that would suggest acute thrombosis. Coaptation is unremarkable throughout. Doppler interrogation shows an expected response to respiratory variability and augmentation. The color flow Doppler images show what appears to be a normal vascular pattern throughout. However, the left posterior tibial vein in calf is noncompressible in its proximal to distal course. Peroneal vein cannot be visualized due to body habitus considerations. IMPRESSION: The left posterior tibial vein was noncompressible from its proximal to distal course in the calf. This suggests some thrombus and acute DVT in the calf. Peroneal vein is poorly seen due to body habitus considerations.. There is no ultrasonographic evidence of deep venous thrombosis involving any of the visualized deep venous structures of the right thigh from the common femoral vein through the popliteal vein as described above. Accredited by the [employer] in Vascular Peripheral Ultrasound. <Electronically signed by Jaciel Rosen > 04/26/21 [id number]
== END ==
LOC: M RAD 15:48
PROVIDERS: ATTEND General Practice
DX: R22.43 Localized swelling, mass and lump, lower limb, bilateral (principal)

== ENCOUNTER 2021-05-02 12:50 | Outpatient (RCR) | payer MEDICARE, MEDICAID ==
[~2021-05-02 12:50] MED LIST changes: +DIGO0.253 PO; +ONDA-84 PO; -ONDA8TAB10 PO; -PROC10TA4 PO; +PROC10TA5 PO; +TORS20TA2 PO
[2021-07-02] MEDS ORDERED: CAPE1TAB2 PO (09:02)
== END 2021-05-21 ==
LOC: M ONCR 12:50
PROVIDERS: ATTEND General Practice
DX: C20 Malignant neoplasm of rectum (principal)

== ENCOUNTER → 2021-08-09 | Outpatient (CLI) | payer MEDICARE, MEDICAID | LOC: M ONCR 13:27 | PROVIDERS: ATTEND General Practice | DX: C78.5 Secondary malignant neoplasm of large intestine and rectum (principal); Z79.899 Other long term (current) drug therapy; Z85.46 Personal history of malignant neoplasm of prostate; Z92.3 Personal history of irradiation ==

== ENCOUNTER → 2021-08-27 | Outpatient (CLI) | payer MEDICARE, MEDICAID ==
[~2021-08-27] MED LIST changes: +GASTROGRAFIN SOLUTION 30ML (Q9963) As Ordered ONE; +ISOVUE-370 76% 100ML VIAL As Ordered ONE
== END ==
LOC: M RAD 13:33
PROVIDERS: ATTEND Specialist
DX: C78.7 Secondary malignant neoplasm of liver and intrahepatic bile duct (principal); C78.00 Secondary malignant neoplasm of unspecified lung
CPT/HCPCS: 71260; 74177; Q9963; Q9967

== ENCOUNTER → 2021-08-30 | Outpatient (CLI) | payer MEDICARE, MEDICAID ==
[~2021-08-30] MED LIST changes: -GASTROGRAFIN SOLUTION 30ML (Q9963) As Ordered ONE; -ISOVUE-370 76% 100ML VIAL As Ordered ONE; +PERC5TAB12 PO
== END ==
LOC: M RAD 09:34
PROVIDERS: ATTEND Specialist
DX: M79.602 Pain in left arm (principal)

== ENCOUNTER 2021-09-03 01:22 | Emergency (ER) | payer MEDICARE, MEDICAID ==
[~2021-09-03] VITALS: Ht 160 cm; Wt 72.7 kg
[~2021-09-03 01:22] MED LIST changes: -PERC5TAB12 PO
[2021-09-03] MEDS ORDERED: ONDANSETRON 4MG/2ML VIAL IV ONE (04:35)
[2021-09-03] MEDS ORDERED: MORPHINE 4 MG/ML 1ML VIAL/SYRINGE (J2270) IV PRN (04:35)
[2021-09-03 05:13] LABS: BASO % 0.2 % (0.0-1.0); EOS # 0.3 10^3/uL (0.0-0.5); EOS % 1.7 % (0.0-3.0); HEMATOCRIT 33.1 % (42.0-52.0); HEMOGLOBIN 10.7 g/dl (13.5-17.5); LYMPH # 7.2 10^3/uL (1.5-5.0); LYMPH % 43.1 % (24.0-44.0); MEAN CORPUSCULAR HEMOGLOBIN 34.6 pg (27.0-33.0); MEAN CORPUSCULAR HGB CONC 32.3 g/dl (32.0-36.5); MEAN CORPUSCULAR VOLUME 107.1 fl (80.0-96.0); MONO # 0.9 10^3/uL (0.0-0.8); MONO % 5.6 % (2.0-8.0); NEUTROPHILS # 8.2 10^3/uL (1.5-8.5); NEUTROPHILS % 49.2 % (36.0-66.0); PLATELET COUNT, AUTOMATED 89 10^3/uL (150-450); RED BLOOD COUNT 3.09 10^6/uL (4.30-6.10); WHITE BLOOD COUNT 16.6 10^3/uL (4.0-10.0)
[2021-09-03 05:30] LABS: INR 1.08; PROTHROMBIN TIME 14.4 SECONDS (12.7-14.5)
[2021-09-03 05:32] LABS: PARTIAL THROMBOPLASTIN TIME 89.2 SECONDS (25.9-37.0)
[2021-09-03 05:44] LABS: ALBUMIN 3.5 GM/DL (3.2-5.2); ALT/SGPT 27 U/L (12-78); BILIRUBIN,DIRECT 0.2 MG/DL (0.0-0.2); BILIRUBIN,TOTAL 0.6 MG/DL (0.2-1.0); BLOOD UREA NITROGEN 29 MG/DL (7-18); CALCIUM LEVEL 8.6 MG/DL (8.8-10.2); CARBON DIOXIDE LEVEL 29 MEQ/L (21-32); CHLORIDE LEVEL 106 MEQ/L (98-107); CREATININE FOR GFR 1.22 MG/DL (0.70-1.30); GLOMERULAR FILTRATION RATE > 60.0 (>42); GLUCOSE, FASTING 88 MG/DL (70-100); POTASSIUM SERUM 5.1 MEQ/L (3.5-5.1); SODIUM LEVEL 140 MEQ/L (136-145); TOTAL PROTEIN 6.7 GM/DL (6.4-8.2)
[2021-09-03] MEDS ORDERED: OXYCODONE/APAP 5MG/325MG(BULK FOR ED) 1 TABLET PO ONE (06:35)
[2021-09-03] MEDS ORDERED: PERC5TAB12 PO (07:14)
[2021-09-03 07:46] VITALS: BP 152/79
== END 2021-09-03 07:59 | disposition home or self-care (01) ==
LOC: M ED 01:22
DX: M84.422A Pathological fracture, left humerus, initial encounter for fracture (principal); I45.19 Other right bundle-branch block; I11.0 Hypertensive heart disease with heart failure; I50.9 Heart failure, unspecified; J44.9 Chronic obstructive pulmonary disease, unspecified; G40.909 Epilepsy, unspecified, not intractable, without status epilepticus; I48.91 Unspecified atrial fibrillation; Z85.118 Personal history of other malignant neoplasm of bronchus and lung; Z85.038 Personal history of other malignant neoplasm of large intestine; Z85.3 Personal history of malignant neoplasm of breast; Z92.3 Personal history of irradiation; Z79.899 Other long term (current) drug therapy; F17.210 Nicotine dependence, cigarettes, uncomplicated
CPT/HCPCS: 73060; 80048; 80076; 85025; 85049; 85055; 85610; 85730; 93005; 96374; 96375; 99285; J2270; J2405

== ENCOUNTER 2021-09-21 12:26 | Inpatient (IN) | payer MEDICARE, MEDICAID ==
[~2021-09-21] VITALS: Ht 165.1 cm; Wt 73.6 kg
[~2021-09-21 12:26] MED LIST changes: +PERC5TAB12 PO
[2021-09-21 13:42] LABS: HEMATOCRIT 32.5 % (42.0-52.0); HEMOGLOBIN 10.4 g/dl (13.5-17.5); MEAN CORPUSCULAR HEMOGLOBIN 35.9 pg (27.0-33.0); MEAN CORPUSCULAR VOLUME 112.1 fl (80.0-96.0); WHITE BLOOD COUNT 16.5 10^3/uL (4.0-10.0)
[2021-09-21 13:43] LABS: PLATELET COUNT, AUTOMATED 72 10^3/uL (150-450)
[2021-09-21 14:06] LABS: CK-MB VALUE MASS 3.4 NG/ML (<3.6); MB/CK RELATIVE INDEX 2.83 (< OR =4)
[2021-09-21 14:19] LABS: RSV AMPLIFICATION NEGATIVE (NEGATIVE)
[2021-09-21 14:21] LABS: BLOOD UREA NITROGEN 26 MG/DL (7-18); CALCIUM LEVEL 8.4 MG/DL (8.8-10.2); CARBON DIOXIDE LEVEL 22 MEQ/L (21-32); CHLORIDE LEVEL 111 MEQ/L (98-107); DIGOXIN LEVEL 1.2 NG/ML (0.5-2.0); FREE T4 0.94 NG/DL (0.76-1.46); GLOMERULAR FILTRATION RATE > 60.0 (>42); GLUCOSE, FASTING 79 MG/DL (70-100); MAGNESIUM LEVEL 2.2 MG/DL (1.8-2.4); NT-PRO BNP 8236 PG/ML (<125); PHENYTOIN (DILANTIN) 8.3 UG/ML (10.0-20.0); POTASSIUM SERUM 6.7 MEQ/L (3.5-5.1); SODIUM LEVEL 138 MEQ/L (136-145)
[2021-09-21] MEDS ORDERED: FUROSEMIDE 40MG/4ML VIAL (J1940) IV ONE (14:25)
[2021-09-21] MEDS ORDERED: DEXTROSE 50% 50 ML SYRINGE IV ONE (14:25)
[2021-09-21] MEDS ORDERED: HumuLIN R (REGULAR) INSULIN (NovoLIN R) **100U/ML** PER UNIT IV ONE (14:25)
[2021-09-21] MEDS ORDERED: CALCIUM CHLORIDE 10% 1 GM/10 ML SYR IV ONE (14:45)
[2021-09-21] MEDS ORDERED: PATIROMER SORBITEX CALCIUM 8.4 GM POWDER PACKET (VELTASSA) PO ONE (14:45)
[2021-09-21 14:56] LABS: ATYPICAL LYMPH 1 % (0-5); EOSINOPHILS 3 % (0-3); MONOCYTES 4 % (0-5)
[2021-09-21 14:57] LABS: LYMPHOCYTES 41 % (16-44); NEUTROPHILS 49 % (28-66); PLATELET ESTIMATE DECREASED (NORMAL)
[2021-09-21 14:59] LABS: SMUDGE CELLS 1+; TOXIC VACUOLATION 1+
[2021-09-21 15:00] LABS: ANISOCYTOSIS 1+
[2021-09-21 15:30] LABS: BLOOD UREA NITROGEN 28 MG/DL (7-18); CALCIUM LEVEL 8.3 MG/DL (8.8-10.2); CARBON DIOXIDE LEVEL 23 MEQ/L (21-32); CHLORIDE LEVEL 110 MEQ/L (98-107); CREATININE FOR GFR 0.87 MG/DL (0.70-1.30); GLOMERULAR FILTRATION RATE > 60.0 (>42); GLUCOSE, FASTING 76 MG/DL (70-100); SODIUM LEVEL 138 MEQ/L (136-145)
[2021-09-21 15:35] LABS: CK-MB VALUE MASS 3.4 NG/ML (<3.6); MB/CK RELATIVE INDEX 3.51 (< OR =4)
[2021-09-21] MEDS ORDERED: TORS20TA2 PO (16:10)
[2021-09-21] MEDS ORDERED: HOME MED LIST COMPLETE! XX SCH (16:15)
[2021-09-21] MEDS ORDERED: CAPECITABINE 50 MG/ML PO SCH (16:20)
[2021-09-21] MEDS: TORSEMIDE 20 MG TAB PO SCH (18:39)
[2021-09-21] MEDS: cefTRIAXone SOD 1 GM in D5W MINI-BAG PLUS 50 ML IV SCH (18:55)
[2021-09-21 19:32] LABS: BLOOD UREA NITROGEN 25 MG/DL (7-18); CALCIUM LEVEL 8.6 MG/DL (8.8-10.2); CARBON DIOXIDE LEVEL 23 MEQ/L (21-32); CHLORIDE LEVEL 112 MEQ/L (98-107); GLOMERULAR FILTRATION RATE > 60.0 (>42); GLUCOSE, FASTING 109 MG/DL (70-100); POTASSIUM SERUM 5.3 MEQ/L (3.5-5.1); SODIUM LEVEL 139 MEQ/L (136-145)
[2021-09-21 20:30] VITALS: BP 130/84
[2021-09-21] MEDS ORDERED: ONDANSETRON 4MG TAB PO PRN (21:00)
[2021-09-21] MEDS: DOCUSATE SODIUM 100MG CAPSULE PO SCH (21:26)
[2021-09-21] MEDS: PHENYTOIN ER 100 MG CAP PO SCH (21:26)
[2021-09-21] MEDS: METOPROLOL TART 50 MG TAB PO SCH (21:27)
[2021-09-21] MEDS ORDERED: CALCIUM CARBONATE 500 MG CHEW U/D PO ONE (22:20)
[2021-09-21] MEDS: PHENobarbitaL 30 MG TAB PO SCH (22:22)
[2021-09-21 23:50] VITALS: BP 115/63
[2021-09-22 03:45] VITALS: BP 116/76
[2021-09-22 05:36] LABS: HEMATOCRIT 30.9 % (42.0-52.0); HEMOGLOBIN 9.9 g/dl (13.5-17.5); MEAN CORPUSCULAR HEMOGLOBIN 35.4 pg (27.0-33.0); MEAN CORPUSCULAR VOLUME 110.4 fl (80.0-96.0); WHITE BLOOD COUNT 14.2 10^3/uL (4.0-10.0)
[2021-09-22 05:41] LABS: PLATELET COUNT, AUTOMATED 68 10^3/uL (150-450)
[2021-09-22 05:55] LABS: BLOOD UREA NITROGEN 24 MG/DL (7-18); CALCIUM LEVEL 8.3 MG/DL (8.8-10.2); CARBON DIOXIDE LEVEL 27 MEQ/L (21-32); CHLORIDE LEVEL 106 MEQ/L (98-107); CREATININE FOR GFR 0.98 MG/DL (0.70-1.30); GLOMERULAR FILTRATION RATE > 60.0 (>42); GLUCOSE, FASTING 68 MG/DL (70-100); POTASSIUM SERUM 4.4 MEQ/L (3.5-5.1); SODIUM LEVEL 140 MEQ/L (136-145)
[2021-09-22 07:40] VITALS: BP 113/60
[2021-09-22] MEDS: DOCUSATE SODIUM 100MG CAPSULE PO SCH ×2 (08:31→20:36)
[2021-09-22] MEDS: PHENYTOIN ER 100 MG CAP PO SCH ×3 (08:31→20:35)
[2021-09-22] MEDS: ASCORBIC ACID 500 MG TAB PO SCH (08:31)
[2021-09-22] MEDS: MULTIVITAMINS/MINERALS THERAP 1 TAB PO SCH (08:31)
[2021-09-22] MEDS: TORSEMIDE 20 MG TAB PO SCH ×2 (08:31→16:44)
[2021-09-22] MEDS: METOPROLOL TART 50 MG TAB PO SCH ×2 (08:32→20:36)
[2021-09-22] MEDS: PHENobarbitaL 30 MG TAB PO SCH ×2 (08:32→20:36)
[2021-09-22] MEDS: DIGOXIN 0.25 MG TAB PO SCH (08:32)
[2021-09-22 12:00] VITALS: BP 134/67
[2021-09-22] MEDS: PERCOCET 5MG/325MG TAB PO PRN ×2 (12:09→18:27)
[2021-09-22 15:49] VITALS: BP 121/67
[2021-09-22] MEDS: cefTRIAXone SOD 1 GM in D5W MINI-BAG PLUS 50 ML IV SCH (18:37)
[2021-09-22 20:00] VITALS: BP 115/72
[2021-09-23] VITALS: BP 127/75
[2021-09-23] MEDS: PERCOCET 5MG/325MG TAB PO PRN ×2 (00:48→20:16)
[2021-09-23 04:00] VITALS: BP 135/65
[2021-09-23 07:22] LABS: BASO % 0.3 % (0.0-1.0); EOS # 0.5 10^3/uL (0.0-0.5); EOS % 4.3 % (0.0-3.0); HEMATOCRIT 29.6 % (42.0-52.0); HEMOGLOBIN 9.7 g/dl (13.5-17.5); LYMPH # 5.9 10^3/uL (1.5-5.0); LYMPH % 47.2 % (24.0-44.0); MEAN CORPUSCULAR HEMOGLOBIN 35.9 pg (27.0-33.0); MEAN CORPUSCULAR HGB CONC 32.8 g/dl (32.0-36.5); MEAN CORPUSCULAR VOLUME 109.6 fl (80.0-96.0); MONO # 0.8 10^3/uL (0.0-0.8); MONO % 6.1 % (2.0-8.0); NEUTROPHILS # 5.2 10^3/uL (1.5-8.5); NEUTROPHILS % 41.7 % (36.0-66.0); PLATELET COUNT, AUTOMATED 61 10^3/uL (150-450); WHITE BLOOD COUNT 12.5 10^3/uL (4.0-10.0)
[2021-09-23 07:24] LABS: BLOOD UREA NITROGEN 26 MG/DL (7-18); CALCIUM LEVEL 8.1 MG/DL (8.8-10.2); CARBON DIOXIDE LEVEL 30 MEQ/L (21-32); CHLORIDE LEVEL 108 MEQ/L (98-107); CREATININE FOR GFR 1.12 MG/DL (0.70-1.30); GLOMERULAR FILTRATION RATE > 60.0 (>42); GLUCOSE, FASTING 80 MG/DL (70-100); POTASSIUM SERUM 3.9 MEQ/L (3.5-5.1); SODIUM LEVEL 142 MEQ/L (136-145)
[2021-09-23 08:02] VITALS: BP 142/61
[2021-09-23] MEDS: DIGOXIN 0.25 MG TAB PO SCH (09:12)
[2021-09-23] MEDS: PHENYTOIN ER 100 MG CAP PO SCH ×3 (09:12→20:13)
[2021-09-23] MEDS: DOCUSATE SODIUM 100MG CAPSULE PO SCH ×2 (09:12→20:13)
[2021-09-23] MEDS: ASCORBIC ACID 500 MG TAB PO SCH (09:13)
[2021-09-23] MEDS: TORSEMIDE 20 MG TAB PO SCH ×2 (09:13→16:46)
[2021-09-23] MEDS: MULTIVITAMINS/MINERALS THERAP 1 TAB PO SCH (09:13)
[2021-09-23] MEDS: METOPROLOL TART 50 MG TAB PO SCH ×2 (09:14→20:12)
[2021-09-23] MEDS: PHENobarbitaL 30 MG TAB PO SCH ×2 (09:14→20:13)
[2021-09-23 12:10] VITALS: BP 127/60
[2021-09-23 19:55] VITALS: BP 124/71
[2021-09-24 03:23] VITALS: BP 118/61
[2021-09-24 05:54] LABS: HEMATOCRIT 29.4 % (42.0-52.0); HEMOGLOBIN 9.7 g/dl (13.5-17.5); MEAN CORPUSCULAR HEMOGLOBIN 36.5 pg (27.0-33.0); MEAN CORPUSCULAR VOLUME 110.5 fl (80.0-96.0); PLATELET COUNT, AUTOMATED 60 10^3/uL (150-450); RED BLOOD COUNT 2.66 10^6/uL (4.30-6.10); WHITE BLOOD COUNT 11.7 10^3/uL (4.0-10.0)
[2021-09-24 06:07] LABS: BLOOD UREA NITROGEN 27 MG/DL (7-18); CALCIUM LEVEL 7.8 MG/DL (8.8-10.2); CARBON DIOXIDE LEVEL 34 MEQ/L (21-32); CHLORIDE LEVEL 108 MEQ/L (98-107); CREATININE FOR GFR 1.02 MG/DL (0.70-1.30); GLOMERULAR FILTRATION RATE > 60.0 (>42); GLUCOSE, FASTING 80 MG/DL (70-100); POTASSIUM SERUM 3.7 MEQ/L (3.5-5.1); SODIUM LEVEL 145 MEQ/L (136-145)
[2021-09-24 06:26] LABS: ATYPICAL LYMPH 3 % (0-5); BASOPHILS 2 % (0-1); EOSINOPHILS 8 % (0-3); HYPOCHROMASIA 1+; LYMPHOCYTES 27 % (16-44); MONOCYTES 2 % (0-5); NEUTROPHILS 58 % (28-66); PLATELET ESTIMATE DECREASED (NORMAL)
[2021-09-24 08:05] VITALS: BP 123/78
[2021-09-24 09:03] VITALS: BP 132/66
[2021-09-24] MEDS: MULTIVITAMINS/MINERALS THERAP 1 TAB PO SCH (09:03)
[2021-09-24] MEDS: METOPROLOL TART 50 MG TAB PO SCH (09:03)
[2021-09-24] MEDS: ASCORBIC ACID 500 MG TAB PO SCH (09:04)
[2021-09-24] MEDS: DIGOXIN 0.25 MG TAB PO SCH (09:04)
[2021-09-24] MEDS: PHENobarbitaL 30 MG TAB PO SCH (09:04)
[2021-09-24] MEDS: TORSEMIDE 20 MG TAB PO SCH (09:04)
[2021-09-24] MEDS: PHENYTOIN ER 100 MG CAP PO SCH (09:09)
[2021-09-24] MEDS: DOCUSATE SODIUM 100MG CAPSULE PO SCH (09:09)
== END 2021-09-24 15:06 | disposition home health service (06) | DRG 312 ==
LOC: EDBD 12:26 → M ED 12:26 → M ED INP 16:10 → ENRESERV 16:48 → M PCU 20:24
PROVIDERS: ADMIT Internal Medicine; ATTEND Internal Medicine
DX: R55 Syncope and collapse (principal); I50.32 Chronic diastolic (congestive) heart failure; J96.11 Chronic respiratory failure with hypoxia; I48.20 Chronic atrial fibrillation, unspecified; C78.00 Secondary malignant neoplasm of unspecified lung; C78.7 Secondary malignant neoplasm of liver and intrahepatic bile duct; C79.51 Secondary malignant neoplasm of bone; C18.9 Malignant neoplasm of colon, unspecified; I11.0 Hypertensive heart disease with heart failure; Z86.718 Personal history of other venous thrombosis and embolism; Z99.81 Dependence on supplemental oxygen; N40.0 Benign prostatic hyperplasia without lower urinary tract symptoms; E78.5 Hyperlipidemia, unspecified; M10.9 Gout, unspecified; Z95.2 Presence of prosthetic heart valve; Z90.49 Acquired absence of other specified parts of digestive tract; D69.6 Thrombocytopenia, unspecified; Z79.899 Other long term (current) drug therapy; Z20.822 Contact with and (suspected) exposure to COVID-19; G40.909 Epilepsy, unspecified, not intractable, without status epilepticus; E87.5 Hyperkalemia; D72.829 Elevated white blood cell count, unspecified

== ENCOUNTER → 2021-09-26 | Outpatient (CLI) | payer MEDICARE, MEDICAID | LOC: M ONCR 10:22 | PROVIDERS: ATTEND General Practice | DX: C78.5 Secondary malignant neoplasm of large intestine and rectum (principal); C79.51 Secondary malignant neoplasm of bone; M84.422D Pathological fracture, left humerus, subsequent encounter for fracture with routine healing; D69.6 Thrombocytopenia, unspecified; Z85.46 Personal history of malignant neoplasm of prostate; Z92.3 Personal history of irradiation ==

== ENCOUNTER 2021-10-08 10:27 | Outpatient (RCR) | payer MEDICARE, MEDICAID ==
[~2021-10-08 10:27] MED LIST changes: +PHYT5TAB9 PO
== END 2021-10-19 ==
LOC: M ONCR 10:27
PROVIDERS: ATTEND General Practice
DX: C79.51 Secondary malignant neoplasm of bone (principal)

== ENCOUNTER 2021-10-21 23:13 | Inpatient (IN) | payer MEDICARE, MEDICAID ==
[~2021-10-21] VITALS: Ht 165.1 cm; Wt 85.0 kg
[2021-10-21] MEDS ORDERED: ACETAMINOPHEN 325 MG TAB PO ONE (23:50)
[2021-10-22] VITALS (52 sets, daily range): BP systolic 77–136; BP diastolic 49–77; O2SAT 92
[2021-10-22] MEDS ORDERED: NS 2,320 ML in IV 1 EA IV ONE (00:20)
[2021-10-22] MEDS ORDERED: cefTRIAXone SOD 2 GM in D5W MINI-BAG PLUS 50 ML IV ONE (00:20)
[2021-10-22 01:10] LABS: ABG BASE EXCESS 5.3 (-2.0-2.0); ABG HCO3 29.4 MEQ/L (22.0-26.0); ABG O2 SATURATION 92.8 % (95.0-99.0); ABG PARTIAL PRESSURE CO2 40.9 mmHg (35.0-45.0); ABG PARTIAL PRESSURE O2 62.8 mmHg (75.0-100.0); ABG STANDARD HCO3 29.2 MEQ/L (22.0-26.0); ABG TOTAL CO2 30.6 MEQ/L (23.0-31.0); ABG pH (ARTERIAL) 7.474 UNITS (7.350-7.450)
[2021-10-22 01:32] LABS: HEMATOCRIT 32.4 % (42.0-52.0); MEAN CORPUSCULAR HGB CONC 30.9 g/dl (32.0-36.5); MEAN CORPUSCULAR VOLUME 110.2 fl (80.0-96.0); RED BLOOD COUNT 2.94 10^6/uL (4.30-6.10); WHITE BLOOD COUNT 29.2 10^3/uL (4.0-10.0)
[2021-10-22 01:33] LABS: PLATELET COUNT, AUTOMATED 48 10^3/uL (150-450)
[2021-10-22 01:37] LABS: INR 1.18; PROTHROMBIN TIME 15.4 SECONDS (12.7-14.5)
[2021-10-22 01:38] LABS: RSV AMPLIFICATION NEGATIVE (NEGATIVE)
[2021-10-22 01:39] LABS: PARTIAL THROMBOPLASTIN TIME 91.7 SECONDS (25.9-37.0)
[2021-10-22] MEDS ORDERED: cefTRIAXone SOD 2 GM in D5W MINI-BAG PLUS 50 ML IM ONE (01:40)
[2021-10-22] MEDS ORDERED: LIDOCAINE 1% SDV 5ML VIAL DILUENT ONE (01:40)
[2021-10-22] MEDS ORDERED: cefTRIAXone SOD 2 GM VIAL (J0696 PER 250MG) IM ONE (01:45)
[2021-10-22 01:53] LABS: ATYPICAL LYMPH 3 % (0-5); LYMPHOCYTES 18 % (16-44); MONOCYTES 9 % (0-5); NEUTROPHILS 70 % (28-66)
[2021-10-22 01:54] LABS: ANISOCYTOSIS 1+; PLATELET ESTIMATE MARKED DECREASE (NORMAL); POLYCHROMASIA 1+; SMUDGE CELLS 1+
[2021-10-22 02:37] LABS: ALBUMIN 3.3 GM/DL (3.2-5.2); BILIRUBIN,DIRECT 0.9 MG/DL (0.0-0.2); BILIRUBIN,TOTAL 1.6 MG/DL (0.2-1.0); C REACTIVE PROTEIN QUANTITATIV 9.85 MG/DL (0.00-0.30); CALCIUM LEVEL 8.8 MG/DL (8.8-10.2); CREATININE FOR GFR 1.38 MG/DL (0.70-1.30); GLOMERULAR FILTRATION RATE 53.9 (>42); POTASSIUM SERUM 4.8 MEQ/L (3.5-5.1); TOTAL PROTEIN 6.7 GM/DL (6.4-8.2)
[2021-10-22 03:21] LABS: ABG BASE EXCESS 5.2 (-2.0-2.0); ABG HCO3 29.1 MEQ/L (22.0-26.0); ABG O2 SATURATION 94.9 % (95.0-99.0); ABG PARTIAL PRESSURE CO2 40.4 mmHg (35.0-45.0); ABG PARTIAL PRESSURE O2 69.5 mmHg (75.0-100.0); ABG STANDARD HCO3 29.1 MEQ/L (22.0-26.0); ABG TOTAL CO2 30.4 MEQ/L (23.0-31.0); ABG pH (ARTERIAL) 7.476 UNITS (7.350-7.450)
[2021-10-22] MEDS ORDERED: FUROSEMIDE 40MG/4ML VIAL (J1940) IV ONE (03:30)
[2021-10-22] MEDS ORDERED: SPIR-10 PO (04:10)
[2021-10-22] MEDS ORDERED: FURO40TA2 PO (04:10)
[2021-10-22] MEDS ORDERED: HOME MED LIST COMPLETE! XX SCH (04:15)
[2021-10-22] MEDS ORDERED: ACETAMINOPHEN TAB 650MG DOSE (2X325MG) PO PRN (04:40)
[2021-10-22] MEDS ORDERED: VANCOMYCIN HCL IV SCH (04:40)
[2021-10-22] MEDS ORDERED: FLUID PLACE HOLDER IV SCH (04:40)
[2021-10-22 05:12] LABS: APPEARANCE, URINE HAZY (CLEAR); BACTERIA, URINE AUTO NEGATIVE (NEGATIVE); BILIRUBIN, URINE AUTO NEGATIVE (NEGATIVE); BLOOD, URINE BLOOD NEGATIVE (NEGATIVE); COLOR, URINE AMBER (YELLOW); GLUCOSE, URINE (UA) AUTO NEGATIVE (NEGATIVE); KETONE, URINE AUTO NEGATIVE (NEGATIVE); LEUKOCYTE ESTERASE, URINE AUTO NEGATIVE (NEGATIVE); MUCUS, URINE SMALL (NEGATIVE); NITRITE, URINE AUTO NEGATIVE (NEGATIVE); PROTEIN, URINE AUTO 2+ mg/dL (NEGATIVE); RBC, URINE AUTO 5 /HPF (0-3); SPECIFIC GRAVITY URINE AUTO 1.016 (1.002-1.035); SQUAMOUS EPITHELIAL CELL UR AU 0 /HPF (0-6); WBC, URINE AUTO 3 /HPF (0-3)
[2021-10-22 07:45] LABS: BASO # 0.1 10^3/uL (0.0-0.2); BASO % 0.2 % (0.0-1.0); EOS % 0.1 % (0.0-3.0); HEMATOCRIT 29.1 % (42.0-52.0); HEMOGLOBIN 9.2 g/dl (13.5-17.5); LYMPH # 5.2 10^3/uL (1.5-5.0); MEAN CORPUSCULAR HEMOGLOBIN 35.2 pg (27.0-33.0); MEAN CORPUSCULAR HGB CONC 31.6 g/dl (32.0-36.5); MEAN CORPUSCULAR VOLUME 111.5 fl (80.0-96.0); MONO # 0.6 10^3/uL (0.0-0.8); MONO % 2.6 % (2.0-8.0); NEUTROPHILS # 18.1 10^3/uL (1.5-8.5); NEUTROPHILS % 73.6 % (36.0-66.0); RED BLOOD COUNT 2.61 10^6/uL (4.30-6.10); WHITE BLOOD COUNT 24.5 10^3/uL (4.0-10.0)
[2021-10-22 07:47] LABS: PLATELET COUNT, AUTOMATED 44 10^3/uL (150-450)
[2021-10-22] MEDS: PIPERACILLIN/TAZOBACTAM SOD 4.5 GM in D5W MINI-BAG PLUS 50 ML IV SCH ×4 (07:54→23:11)
[2021-10-22 08:19] LABS: ALBUMIN 2.9 GM/DL (3.2-5.2); BILIRUBIN,TOTAL 1.4 MG/DL (0.2-1.0); CALCIUM LEVEL 8.4 MG/DL (8.8-10.2); CREATININE FOR GFR 1.4 MG/DL (0.70-1.30); POTASSIUM SERUM 4.7 MEQ/L (3.5-5.1); TOTAL PROTEIN 5.9 GM/DL (6.4-8.2)
[2021-10-22] MEDS ORDERED: PHENobarbitaL 30 MG TAB PO SCH (09:00)
[2021-10-22] MEDS ORDERED: SPIRONOLACTONE 12.5MG PER 1/2 TABLET PO SCH (09:00)
[2021-10-22] MEDS ORDERED: VANCOMYCIN HCL 500 MG in D5W MINI-BAG PLUS 100 ML IV ONE (09:00)
[2021-10-22] MEDS ORDERED: PHENYTOIN ER 100 MG CAP PO SCH (09:00)
[2021-10-22] MEDS: VANCOMYCIN HCL 1,000 MG, VIAL MATE ADAPTER 1 EACH in NS 250 ML IV SCH (09:05)
[2021-10-22] MEDS: DIGOXIN 0.25 MG TAB PO SCH (09:34)
[2021-10-22] MEDS: DOCUSATE SODIUM 100MG CAPSULE PO SCH ×2 (09:34→20:24)
[2021-10-22] MEDS: METOPROLOL TART 50 MG TAB PO SCH ×2 (09:35→20:25)
[2021-10-22] MEDS: MULTIVITAMINS/MINERALS THERAP 1 TAB PO SCH (09:35)
[2021-10-22] MEDS: ASCORBIC ACID 500 MG TAB PO SCH (09:35)
[2021-10-22] MEDS ORDERED: ACETAMINOPHEN 650 MG SUPP PR PRN (13:50)
[2021-10-22] MEDS ORDERED: NS 1,000 ML IV ONE (13:55)
[2021-10-22] MEDS ORDERED: VANCOMYCIN HCL 750 MG, VIAL MATE ADAPTER 1 EACH in NS 250 ML IV SCH (14:00)
[2021-10-22] MEDS ORDERED: NOREPINEPHRINE BITARTRATE 16 MG in D5W 484 ML IV SCH (14:05)
[2021-10-22] MEDS ORDERED: NOREPINEPHRINE 4 MG/4 ML AMP As Ordered ONE (14:29)
[2021-10-22 14:35] LABS: ABG BASE EXCESS -1.1 (-2.0-2.0); ABG O2 SATURATION 89.5 % (95.0-99.0); ABG PARTIAL PRESSURE O2 56.2 mmHg (75.0-100.0); ABG STANDARD HCO3 23.5 MEQ/L (22.0-26.0); ABG TOTAL CO2 24.1 MEQ/L (23.0-31.0); ABG pH (ARTERIAL) 7.424 UNITS (7.350-7.450)
[2021-10-22] MEDS ORDERED: FUROSEMIDE 40MG/4ML VIAL (J1940) IV SCH (17:00)
[2021-10-22] MEDS: PHENYTOIN 100 MG/2 ML VIAL (J1165) IV SCH (17:08)
[2021-10-22] MEDS: FUROSEMIDE injection 250 MG in D5W 225 ML IV SCH (17:09)
[2021-10-22 17:11] LABS: CALCIUM LEVEL 7.7 MG/DL (8.8-10.2); CREATININE FOR GFR 2.05 MG/DL (0.70-1.30); GLOMERULAR FILTRATION RATE 34.2 (>42); MAGNESIUM LEVEL 2.6 MG/DL (1.8-2.4); POTASSIUM SERUM 5.2 MEQ/L (3.5-5.1)
[2021-10-22 17:17] LABS: CK-MB VALUE MASS 5.2 NG/ML (<3.6); MB/CK RELATIVE INDEX 0.4 (< OR =4)
[2021-10-22 19:04] LABS: SODIUM,RANDOM URINE < 10 MEQ/L; UREA NITROGEN RANDOM URINE 184 MG/DL
[2021-10-22] MEDS: PHENobarbital 65MG/ML 1ML VIAL IV SCH (20:29)
[2021-10-22 21:31] LABS: CK-MB VALUE MASS 5.8 NG/ML (<3.6); MB/CK RELATIVE INDEX 0.48 (< OR =4)
[2021-10-23] VITALS (20 sets, daily range): BP systolic 103–138; BP diastolic 55–74
[2021-10-23] MEDS ORDERED: UNRESOLVED CLARIFICATION ENTRY XX SCH (00:01)
[2021-10-23] MEDS: PHENYTOIN 100 MG/2 ML VIAL (J1165) IV SCH ×3 (00:13→16:11)
[2021-10-23] MEDS ORDERED: NOREPINEPHRINE BITARTRATE 16 MG in D5W 484 ML IV SCH (03:01)
[2021-10-23] MEDS: PIPERACILLIN/TAZOBACTAM SOD 4.5 GM in D5W MINI-BAG PLUS 50 ML IV SCH (05:03)
[2021-10-23 05:30] LABS: HEMATOCRIT 29.6 % (42.0-52.0); HEMOGLOBIN 9.3 g/dl (13.5-17.5); MEAN CORPUSCULAR HEMOGLOBIN 35.1 pg (27.0-33.0); MEAN CORPUSCULAR HGB CONC 31.4 g/dl (32.0-36.5); MEAN CORPUSCULAR VOLUME 111.7 fl (80.0-96.0); RED BLOOD COUNT 2.65 10^6/uL (4.30-6.10); WHITE BLOOD COUNT 18.3 10^3/uL (4.0-10.0)
[2021-10-23 05:37] LABS: PLATELET COUNT, AUTOMATED 40 10^3/uL (150-450)
[2021-10-23 06:01] LABS: ALBUMIN 2.7 GM/DL (3.2-5.2); BILIRUBIN,TOTAL 1.1 MG/DL (0.2-1.0); CALCIUM LEVEL 8.3 MG/DL (8.8-10.2); CREATININE FOR GFR 2.07 MG/DL (0.70-1.30); GLOMERULAR FILTRATION RATE 33.8 (>42); MAGNESIUM LEVEL 2.6 MG/DL (1.8-2.4)
[2021-10-23 06:34] LABS: ANISOCYTOSIS 2+; EOSINOPHILS 1 % (0-3); LYMPHOCYTES 20 % (16-44); METAMYELOCYTES 1 % (0-0); MONOCYTES 1 % (0-5); NEUTROPHILS 75 % (28-66); PLATELET ESTIMATE DECREASED (NORMAL)
[2021-10-23 08:09] LABS: CK-MB VALUE MASS 5.5 NG/ML (<3.6); MB/CK RELATIVE INDEX 0.62 (< OR =4)
[2021-10-23] MEDS: DOCUSATE SODIUM 100MG CAPSULE PO SCH (09:00)
[2021-10-23] MEDS: PHENobarbital 65MG/ML 1ML VIAL IV SCH ×2 (09:01→20:09)
[2021-10-23] MEDS: METOPROLOL TART 50 MG TAB PO SCH ×2 (09:02→20:08)
[2021-10-23] MEDS: ASCORBIC ACID 500 MG TAB PO SCH (09:02)
[2021-10-23] MEDS: MULTIVITAMINS/MINERALS THERAP 1 TAB PO SCH (09:02)
[2021-10-23 09:13] LABS: DIGOXIN LEVEL 1.6 NG/ML (0.5-2.0)
[2021-10-23] MEDS: VANCOMYCIN HCL 1,000 MG, VIAL MATE ADAPTER 1 EACH in NS 250 ML IV SCH (09:32)
[2021-10-23] MEDS: DIGOXIN 0.25 MG TAB PO SCH (09:42)
[2021-10-23 13:44] LABS: CK-MB VALUE MASS 5.2 NG/ML (<3.6); MB/CK RELATIVE INDEX 0.87 (< OR =4)
[2021-10-23] MEDS: oxyCODONE 5MG TAB PO PRN ×2 (16:18→23:39)
[2021-10-23] MEDS ORDERED: DOCUSATE SODIUM 100MG CAPSULE PO PRN (16:30)
[2021-10-23] MEDS: FUROSEMIDE injection 250 MG in D5W 225 ML IV SCH (18:18)
[2021-10-23 19:31] LABS: CK-MB VALUE MASS 3.9 NG/ML (<3.6); MB/CK RELATIVE INDEX 0.87 (< OR =4)
[2021-10-23 21:57] LABS: PHENYTOIN (DILANTIN) 8.3 UG/ML (10.0-20.0)
[2021-10-24] VITALS (23 sets, daily range): BP systolic 98–137; BP diastolic 64–89
[2021-10-24] MEDS: PHENYTOIN 100 MG/2 ML VIAL (J1165) IV SCH ×3 (00:04→18:19)
[2021-10-24 00:16] LABS: CK-MB VALUE MASS 3.1 NG/ML (<3.6); MB/CK RELATIVE INDEX 0.88 (< OR =4)
[2021-10-24 05:11] LABS: HEMATOCRIT 31.7 % (42.0-52.0); HEMOGLOBIN 9.8 g/dl (13.5-17.5); MEAN CORPUSCULAR HEMOGLOBIN 34.8 pg (27.0-33.0); MEAN CORPUSCULAR HGB CONC 30.9 g/dl (32.0-36.5); MEAN CORPUSCULAR VOLUME 112.4 fl (80.0-96.0); RED BLOOD COUNT 2.82 10^6/uL (4.30-6.10)
[2021-10-24 05:13] LABS: PLATELET COUNT, AUTOMATED 45 10^3/uL (150-450)
[2021-10-24 05:42] LABS: CK-MB VALUE MASS 2.9 NG/ML (<3.6); MB/CK RELATIVE INDEX 0.96 (< OR =4)
[2021-10-24 05:44] LABS: ALBUMIN 2.6 GM/DL (3.2-5.2); BILIRUBIN,TOTAL 0.9 MG/DL (0.2-1.0); CREATININE FOR GFR 1.94 MG/DL (0.70-1.30); GLOMERULAR FILTRATION RATE 36.4 (>42); MAGNESIUM LEVEL 2.8 MG/DL (1.8-2.4); POTASSIUM SERUM 4.4 MEQ/L (3.5-5.1); TOTAL PROTEIN 5.8 GM/DL (6.4-8.2)
[2021-10-24 07:00] LABS: EOSINOPHILS 1 % (0-3); LYMPHOCYTES 32 % (16-44); METAMYELOCYTES 1 % (0-0); MONOCYTES 3 % (0-5); NEUTROPHILS 61 % (28-66); PLATELET ESTIMATE MARKED DECREASE (NORMAL)
[2021-10-24] MEDS: PHENobarbital 65MG/ML 1ML VIAL IV SCH ×2 (08:36→20:30)
[2021-10-24] MEDS: VANCOMYCIN HCL 1,000 MG, VIAL MATE ADAPTER 1 EACH in NS 250 ML IV SCH (08:36)
[2021-10-24] MEDS: ASCORBIC ACID 500 MG TAB PO SCH (08:36)
[2021-10-24] MEDS: DIGOXIN 0.25 MG TAB PO SCH (08:37)
[2021-10-24] MEDS: MULTIVITAMINS/MINERALS THERAP 1 TAB PO SCH (08:37)
[2021-10-24] MEDS: METOPROLOL TART 50 MG TAB PO SCH ×2 (08:37→20:30)
[2021-10-24] MEDS: oxyCODONE 5MG TAB PO PRN ×2 (08:38→20:31)
[2021-10-24] MEDS: ceFAZolin SOD 2 GM in IV 1 EA IV SCH ×2 (15:57→22:22)
[2021-10-25] VITALS (13 sets, daily range): BP systolic 97–136; BP diastolic 56–87
[2021-10-25] MEDS: RAMELTEON 8 MG TAB (ROZEREM) PO PRN ×2 (00:03→20:11)
[2021-10-25] MEDS: PHENYTOIN 100 MG/2 ML VIAL (J1165) IV SCH ×2 (00:03→08:27)
[2021-10-25 04:56] LABS: BASO # 0.1 10^3/uL (0.0-0.2); BASO % 0.3 % (0.0-1.0); EOS # 0.3 10^3/uL (0.0-0.5); EOS % 1.5 % (0.0-3.0); HEMATOCRIT 31.4 % (42.0-52.0); HEMOGLOBIN 9.9 g/dl (13.5-17.5); LYMPH # 6.2 10^3/uL (1.5-5.0); LYMPH % 34.8 % (24.0-44.0); MEAN CORPUSCULAR HEMOGLOBIN 35.5 pg (27.0-33.0); MEAN CORPUSCULAR HGB CONC 31.5 g/dl (32.0-36.5); MEAN CORPUSCULAR VOLUME 112.5 fl (80.0-96.0); MONO % 5.4 % (2.0-8.0); NEUTROPHILS # 10.2 10^3/uL (1.5-8.5); NEUTROPHILS % 57.1 % (36.0-66.0); RED BLOOD COUNT 2.79 10^6/uL (4.30-6.10); WHITE BLOOD COUNT 17.9 10^3/uL (4.0-10.0)
[2021-10-25 04:58] LABS: PLATELET COUNT, AUTOMATED 32 10^3/uL (150-450)
[2021-10-25 06:25] LABS: ALBUMIN 2.3 GM/DL (3.2-5.2); BILIRUBIN,TOTAL 0.9 MG/DL (0.2-1.0); CREATININE FOR GFR 1.46 MG/DL (0.70-1.30); GLOMERULAR FILTRATION RATE 50.5 (>42); MAGNESIUM LEVEL 2.8 MG/DL (1.8-2.4); POTASSIUM SERUM 4.3 MEQ/L (3.5-5.1); TOTAL PROTEIN 5.9 GM/DL (6.4-8.2)
[2021-10-25] MEDS: ceFAZolin SOD 2 GM in IV 1 EA IV SCH ×3 (06:29→22:35)
[2021-10-25] MEDS: PHENobarbital 65MG/ML 1ML VIAL IV SCH (08:26)
[2021-10-25] MEDS: DIGOXIN 0.25 MG TAB PO SCH (08:28)
[2021-10-25] MEDS: ASCORBIC ACID 500 MG TAB PO SCH (08:30)
[2021-10-25] MEDS: METOPROLOL TART 50 MG TAB PO SCH ×2 (08:30→20:15)
[2021-10-25] MEDS: MULTIVITAMINS/MINERALS THERAP 1 TAB PO SCH (08:30)
[2021-10-25] MEDS: oxyCODONE 5MG TAB PO PRN (12:45)
[2021-10-25] MEDS: PHENYTOIN ER 100 MG CAP PO SCH ×2 (15:38→20:11)
[2021-10-25] MEDS: FUROSEMIDE 20 MG TAB PO SCH (16:47)
[2021-10-25] MEDS: PHENobarbitaL 30 MG TAB PO SCH (20:11)
[2021-10-26] MEDS: oxyCODONE 5MG TAB PO PRN (00:31)
[2021-10-26] MEDS ORDERED: LORazepam 1 MG TAB PO PRN (04:30)
[2021-10-26] MEDS ORDERED: ATROPINE SULFATE 1% OP SOLN 2 ML BTL SL PRN (04:35)
[2021-10-26] MEDS ORDERED: SCOPOLAMINE 1MG TRANSDERMAL PATCH TOP SCH (05:00)
[2021-10-26] MEDS: ceFAZolin SOD 2 GM in IV 1 EA IV SCH ×2 (06:11→14:58)
[2021-10-26] MEDS: FUROSEMIDE 20 MG TAB PO SCH ×2 (07:45→15:41)
[2021-10-26] MEDS: PHENobarbitaL 30 MG TAB PO SCH ×2 (07:45→21:00)
[2021-10-26] MEDS: PHENYTOIN ER 100 MG CAP PO SCH ×3 (07:46→21:00)
[2021-10-26] MEDS: MULTIVITAMINS/MINERALS THERAP 1 TAB PO SCH (07:47)
[2021-10-26] MEDS: METOPROLOL TART 50 MG TAB PO SCH ×2 (07:47→21:00)
[2021-10-26] MEDS: DIGOXIN 0.25 MG TAB PO SCH (07:47)
[2021-10-26] MEDS: ASCORBIC ACID 500 MG TAB PO SCH (07:47)
[2021-10-26] MEDS ORDERED: traMADol 50 MG TAB PO PRN (15:10)
[2021-10-26] MEDS ORDERED: MORPHINE 2 MG/ML 1ML VIAL IV PRN (22:55)
[2021-10-26] MEDS ORDERED: LORazepam 2 MG/ML VIAL IV PRN (22:55)
[2021-10-27] MEDS: ceFAZolin SOD 2 GM in IV 1 EA IV SCH ×4 (00:50→22:05)
[2021-10-27] MEDS ORDERED: PHENobarbital ELIX 20 MG/5 ML UD PO SCH (09:00)
[2021-10-27] MEDS: FUROSEMIDE 20 MG TAB PO SCH ×2 (12:17→16:17)
[2021-10-27] MEDS: METOPROLOL TART 50 MG TAB PO SCH ×2 (12:17→22:05)
[2021-10-27] MEDS: DIGOXIN 0.25 MG TAB PO SCH (12:18)
[2021-10-27] MEDS: PHENYTOIN 125MG/5ML SUSP ORAL SYRINGE *DRAW UP EXACT DOSE PO SCH ×3 (13:29→21:00)
[2021-10-27] MEDS ORDERED: MORPHINE 10MG/0.5ML ORAL CONCENTRATE SOLUTION U/D SL PRN (15:20)
[2021-10-27] MEDS ORDERED: PHENobarbital 65MG/ML 1ML VIAL IV ONE (16:00)
[2021-10-27 22:05] VITALS: BP 131/70
[2021-10-28] MEDS: ceFAZolin SOD 2 GM in IV 1 EA IV SCH ×2 (06:18→14:09)
[2021-10-28] MEDS: PHENYTOIN 100 MG/2 ML VIAL (J1165) IV SCH ×2 (08:56→16:11)
[2021-10-28] MEDS ORDERED: PHENobarbital 65MG/ML 1ML VIAL IV SCH (09:00)
[2021-10-28] MEDS ORDERED: PHENobarbital ELIX 20 MG/5 ML UD PO SCH (09:00)
== END 2021-10-28 21:25 | disposition expired | DRG 871 ==
LOC: EDBD 23:13 → M ED 23:13 → M ED INP 10-22 04:26 → ENRESERV 10-22 12:09 → M ICU 10-22 13:04 → M MS5PR 10-25 18:51
PROVIDERS: ADMIT Family Medicine; ATTEND Family Medicine
PROC: 02HV33Z Insertion of Infusion Device into Superior Vena Cava, Percutaneous Approach (ICD-10-PCS; principal; 2021-10-22)
PROC: B246ZZZ Ultrasonography of Right and Left Heart (ICD-10-PCS; 2021-10-22)
DX: A41.01 Sepsis due to Methicillin susceptible Staphylococcus aureus (principal); J18.9 Pneumonia, unspecified organism; I50.33 Acute on chronic diastolic (congestive) heart failure; R65.21 Severe sepsis with septic shock; J96.21 Acute and chronic respiratory failure with hypoxia; N17.0 Acute kidney failure with tubular necrosis; G93.41 Metabolic encephalopathy; K72.00 Acute and subacute hepatic failure without coma; I33.0 Acute and subacute infective endocarditis; I48.20 Chronic atrial fibrillation, unspecified; E87.2 Acidosis; C18.9 Malignant neoplasm of colon, unspecified; C79.51 Secondary malignant neoplasm of bone; C78.7 Secondary malignant neoplasm of liver and intrahepatic bile duct; C78.00 Secondary malignant neoplasm of unspecified lung; K92.2 Gastrointestinal hemorrhage, unspecified; I24.8 Other forms of acute ischemic heart disease; I13.0 Hypertensive heart and chronic kidney disease with heart failure and stage 1 through stage 4 chronic kidney disease, or unspecified chronic kidney disease; C91.10 Chronic lymphocytic leukemia of B-cell type not having achieved remission; Z66 Do not resuscitate; Z86.718 Personal history of other venous thrombosis and embolism; Z99.81 Dependence on supplemental oxygen; N40.0 Benign prostatic hyperplasia without lower urinary tract symptoms; E78.5 Hyperlipidemia, unspecified; M10.9 Gout, unspecified; I05.9 Rheumatic mitral valve disease, unspecified; G40.909 Epilepsy, unspecified, not intractable, without status epilepticus; Z95.2 Presence of prosthetic heart valve; Z95.828 Presence of other vascular implants and grafts; D69.6 Thrombocytopenia, unspecified; D50.9 Iron deficiency anemia, unspecified; Z72.3 Lack of physical exercise; Z20.822 Contact with and (suspected) exposure to COVID-19; Z79.899 Other long term (current) drug therapy; R74.01 Elevation of levels of liver transaminase levels; I27.29 Other secondary pulmonary hypertension; K76.1 Chronic passive congestion of liver; N18.30 Chronic kidney disease, stage 3 unspecified; I27.20 Pulmonary hypertension, unspecified